=== PATIENT | male | born 1950 | race Caucasian/White ===

== ENCOUNTER 2021-04-20 12:17 | Emergency (ER) | payer MEDICARE, SELFPAY ==
[2021-04-20] VITALS (7 sets, daily range): BP systolic 116–135; BP diastolic 83–95; PULSE 83–108; RESP 14–20; TEMP 36.6; O2SAT 94–97
--- NOTE | ~2021-04-20 | XR_ITS ---
EXAMINATION: XR chest 2V DATE: 04/20/2021 12:38 INDICATION: COPD presenting with cough and congestion. TECHNIQUE: PA and lateral views of the chest were obtained. COMPARISON: Chest radiograph dated 04/01/2013 FINDINGS: Hyperexpansion of lungs with flattening of the diaphragm and increased retrosternal clear space consi stent with given history of COPD . Chronic large calcified nodule at the posterior right lower lobe a long with calcified right hilar lymph nodes no other airspace opacities, pulmonary edema, pleural eff usion or pneumothorax. Consistent with old granulomatous disease. The cardiomediastinal silhouette is normal. Dual lead pacemaker/AICD seen with leads projecting over the expected locations of the right atrium and right ventricle. There are bridging osteophytes at multiple levels in the spine, consiste nt with diffuse idiopathic skeletal hyperostosis (DISH). IMPRESSION: 1. Hyperexpansion of lungs consistent with given history of COPD. No acute cardiopulmonary disease. Reviewed, dictated and finalized at location A. IMPRESSION: 1. Hyperexpansion of lungs consistent with given history of COPD. No acute card iopulmonary disease.
--- NOTE | 2021-04-20 12:26 | ECG_ITS ---
Measurements Intervals [place] Rate: 96 P: 76 GA: 169 QRS: 50 QRSD: 100 T: 91 QT: 362 QTc: 460 Interpretive Statements SINUS RHYTHM VENTRICULAR PREMATURE COMPLEXES DELAYED PRECORDIAL R/S TRANSITION BORDERLINE T WAVE ABNORMALITY- LAT/HIGH LAT LEADS BASELINE ARTIFACT- I, III, AVL BORDERLINE ECG Electronically Signed On 04-20-2021 12:55:22 CDT by Wero Horton D.O.
[2021-04-20 13:04] LABS: Basophils Absolute Auto 0.1 K/mm3 (0.0-0.1); Basophils Percent Auto 1.1 % (0.2-1.2); Eosinophils Absolute Auto 0.2 K/mm3 (0-0.3); Eosinophils Percent Auto 3.4 % (0-4.4); Hematocrit 49.8 % (42.0-52.0); Hemoglobin 15.6 g/dL (14.0-18.0); Immature Granulocyte Absolute 0.01 K/mm3 (0.00-0.031); Immature Granulocyte Percent A 0.2 % (0-0.5); Lymphocytes Absolute Auto 1.48 K/mm3 (0.9-3.2); Lymphocytes Percent Auto 22.8 % (18.3-44.2); Mean Corpuscular HGB Conc 31.3 g/dl (32-36); Mean Corpuscular Hemoglobin 29.4 pg (26-34); Mean Platelet Volume 10.3 fl (7.4-10.4); Monocytes Absolute Auto 0.5 K/mm3 (0.1-0.6); Monocytes Percent Auto 8.2 % (2.6-8.5); Neutrophils Absolute Auto 4.2 K/mm3 (1.3-6.7); Neutrophils Percent Auto 64.3 % (45.5-73.1); Platelet Count Result 224 k/mm3 (150-375); Red Cell Distribution Width 13.2 % (11.5-14.5); White Blood Count 6.5 K/mm3 (4.5-10.0)
--- NOTE | 2021-04-20 15:44 | ED.GENADULT ---
HPI - General Adult General Chief complaint: Upper Respiratory Infection Stated complaint: PROD COUGH/RUNNY NOSE Time Seen by Provider: 04/20/21 15:25 Source: RN notes reviewed History of Present Illness HPI narrative: Patient presents emergency department from home for cough and congestion. Patient states symptoms again proximally 5 days ago. States he had a cough been productive of some yellow sputum as well as rhinorrhea states that he does have a history of COPD but does not have an inhaler at home he denies having any fevers or chills chest pain or shortness of breath states he has had his Covid vaccinations states he normally gets sick around this time of year every year Related Data Home Medications Medication Instructions Recorded Confirmed warfarin 2 mg tablet 2 mg PO DAILY 01/09/21 01/09/21 Allergies Allergy/AdvReac Type Severity Reaction Status Date / Time codeine AdvReac Mild HALLUCINATI Verified 01/09/21 11:21 ONS Review of Systems Review of Systems: Gen.: Denies fevers or chills Eyes: Denies eye pain or visual change ENT: Reports congestion Respiratory: See HPI CV: Denies chest pain or palpitations GI: Denies abdominal pain nausea, emesis or diarrhea Musculoskeletal: Denies back pain or muscle pain Neuro: Denies numbness, tingling, weakness or focal weakness Skin: Denies rash Except as documented, all other systems reviewed and negative [facility] Past Medical History Medical History (Updated 04/20/21 @ 17:56 by Fabio Macias DO) COPD (chronic obstructive pulmonary disease) Family History Family History Father Heart disease Other Cerebrovascular accident Social History Social History Smoking status: Never smoker Alcohol intake: current Substance use: never Exam Narrative: APPEARANCE: No acute distress, nontoxic, resting in bed EYES: EOMI HEENT: Normocephalic, atraumatic, OMM RESPIRATORY: No respiratory distress wheezing throughout the bilateral lung bower with decreased breath sounds in the bases CARDIOVASCULAR: Regular rate and rhythm without murmurs rubs or gallops. ABDOMINAL: Soft, nontender, nondistended, no rebound or guarding MUSCULOSKELETAl: Moves all extremities. No clubbing, cyanosis or edema. NEURO: Awake and alert. Following commands, speech normal, no focal deficits SKIN:: Warm, dry. No rashes lesions or abrasions PSYCHIATRIC: Normal affect/mood, Course Course Emergency Course: Patient states he felt much better repeat lung exam is clear to auscultation bilaterally Discussed with patient results of workup and diagnosis. Discussed need for follow-up with primary care, proper use of medication, and reasons to return to the emergency department. Patient understands and agrees to current treatment plan patient has been vaccinated against Covid suspect this is COPD but will do Covid swab I did discuss with the patient his INR level he states because he was sick he did not take it for the past couple days he states he did restart taking it today he states he supposed be getting it rechecked tomorrow we will follow his PCP Vital Signs Vital signs: Vital Signs Temperature 97.9 F 04/20/21 12:23 Pulse Rate 108 H 04/20/21 12:23 Respiratory Rate 20 04/20/21 12:23 Blood Pressure 116/86 04/20/21 12:23 Pulse Oximetry 97 04/20/21 12:23 Temperature 97.9 F 04/20/21 12:23 Pulse Rate 97 04/20/21 16:48 Respiratory Rate 14 04/20/21 16:48 Blood Pressure 135/95 H 04/20/21 15:35 Pulse Oximetry 95 04/20/21 15:35 Medical Decision Making Vital Signs Vital Signs: Vital Signs Temperature 97.9 F 04/20/21 12:23 Pulse Rate 108 H 04/20/21 12:23 Respiratory Rate 20 04/20/21 12:23 Blood Pressure 116/86 04/20/21 12:23 Pulse Oximetry 97 04/20/21 12:23 Temperature 97.9 F 04/20/21 12:23 Pulse Rate 97 04/20/21 16:48
[2021-04-20] MEDS: IPRATROPIUM BR 0.02% INH SOLN 0.5 MG/2.5 ML VIAL INHALATION ×2 (15:57→16:42)
[2021-04-20] MEDS: ALBUTEROL SULFATE NEB 2.5 MG/0.5 ML INH 5 MG INHALATION ×2 (15:57→16:42)
[2021-04-20] MEDS: predniSONE 20 MG TABLET 60 MG PO (17:12)
[2021-04-20 17:44] LABS: Anion Gap 11 mmol/L (8-16); Blood Urea Nitrogen 25 mg/dL (9-20); Calcium 8.9 mg/dL (8.4-10.2); Carbon Dioxide 29 mmol/L (22-30); Chloride 101 mmol/L (98-107); Estimated CRCL calculation 45 ml/min; Estimated Glomerular Filt Rate 54; Glucose 98 mg/dL (65-110); Potassium 3.9 mmol/L (3.4-5.0); Sodium 141 mmol/L (137-145)
[2021-04-20 17:55] LABS: INR 1.2; Prothrombin Time 15.2 Seconds (11.1-14.7)
[2021-04-20 17:56] LABS: Partial Thromboplastin Time 28.8 SECONDS (22.3-36.8)
== END 2021-04-20 18:16 | disposition home or self-care (01) ==
PROVIDERS: Emergency Medicine; Emergency Provider Emergency Medicine; PCP Family Medicine
DX: J44.1 Chronic obstructive pulmonary disease with (acute) exacerbation (principal); Z79.01 Long term (current) use of anticoagulants
CPT/HCPCS: 36415; 71046; 80048; 85025; 85055; 85610; 85730; 93005; 94640; 99284; J7512

== ENCOUNTER 2022-02-12 11:59 | Inpatient (IN) | payer MEDICARE, SELFPAY ==
[2022-02-12] VITALS (21 sets, daily range): BP systolic 94–144; BP diastolic 52–120; PULSE 88–175; RESP 14–28; TEMP 36.1–36.7; O2SAT 94–100; BMI 23.5
--- NOTE | 2022-02-12 | ECHO_ITS ---
Patient Info Name: Karin Jackson Age: 71 years : 1950 Gender: Male Ht: 68 in Wt: 154 lbs BSA: 1.84 m2 HR: 114 bpm BP: 115 / 79 mmHg Heart Rhythm: Atrial Fibrillation, Tachycardia, Paced Technical Quality: Good Exam Date: 02/12/2022 4:50 PM Exam Location: [facility]monary Exam Room: 201 Patient Status: Inpatient Admit Date: 02/12/2022 Staff Ordering Physician: [facility] Aide: Nicci Ha RDCS Attending Provider: John Paul Bailey MD Referring Physician: Gurwinder YOST; Exam Type: CA echo doppler color flow Study Info Indications R06.02 - Shortness of breath Complete two-dimensional, color flow and Doppler transthoracic echocardiogram is performed. Summary 1. Complete two-dimensional, color flow and Doppler transthoracic echocardiogram is performed. 2. Left ventricular chamber dimension is mildly enlarged. 3. Left ventricular systolic function is severely reduced, estimated at 15%. Prominent left ventricular trabeculations. 4. Left ventricular septal wall motion is abnormal with septal motion related to bundle branch block. 5. There is mild to moderate mitral valve regurgitation. 6. There is mild to moderate tricuspid valve regurgitation. Left Ventricle Left ventricular chamber dimension is mildly enlarged. Left ventricular systolic function is severely reduced, estimated at 15%. Prominent left ventricular trabeculations. There is no increased left ventricular wall thickness. Left ventricular septal wall motion is abnormal with septal motion related to bundle branch block. The left ventricular diastolic function is indeterminate. Right Ventricle Right ventricular chamber dimension is normal. Right ventricular systolic function is moderately reduced. Linear artifact in right ventricle suggestive of catheter(s), pacemaker lead(s), or ICD lead(s). Left Atria Left atrial chamber dimension is mildly enlarged. Right Atria Right atrial chamber dimension is mildly enlarged. Linear artifact in the right atrium suggestive of catheter(s), pacemaker lead(s), or ICD lead(s). Aortic Valve The aortic valve is not well visualized. There is no aortic valve stenosis. There is no aortic valve regurgitation. Pulmonic Valve The pulmonic valve is not well visualized. Mitral Valve The mitral valve has thickened leaflets. There is mild to moderate mitral valve regurgitation. The mitral valve annulus is mildly calcified. Tricuspid Valve The tricuspid valve leaflets are normal. There is mild to moderate tricuspid valve regurgitation. Moderate pulmonary hypertension, estimated pulmonary arterial systolic pressure is 46 mmHg. Pericardium/Pleural The pericardium appears normal. There is no pericardial effusion. Inferior Vena Cava Normal inferior vena cava with >50% collapse upon inspiration consistent with normal right atrial pressure, 5 mmHg. Aorta The aortic root size at the sinus of Valsalva is normal. There is mild aortic atherosclerosis. Left Ventricular Outflow Tract Name Value Normal LVOT 2D LVOT Diameter 2.0 cm LVOT Doppler LVOT Peak Gradient
--- NOTE | ~2022-02-12 | XR_ITS ---
EXAMINATION: XR chest 1V portable DATE: 02/12/2022 12:30 INDICATION: Chest pain. Shortness of breath and cough. TECHNIQUE: A single frontal view of the chest was obtained on 2 radiographs. COMPARISON: Chest 2 views 04/20/2021 FINDINGS: A calcified right lung nodule and calcified right hilar lymph nodes are consistent with old granulomatous disease. No pleural effusion or pneumothorax. The heart size is normal. There is a lef t chest wall pacer with leads in the right atrium and right ventricle. IMPRESSION: 1. No acute cardiopulmonary disease. Reviewed, dictated and finalized at location A.
--- NOTE | ~2022-02-12 | US_ITS ---
EXAMINATION: US right upper quadrant DATE: 02/14/2022 10:48 INDICATION: Hyperbilirubinemia TECHNIQUE: Multiple grayscale and Doppler ultrasound images of the abdomen were obtained. COMPARISON: 02/13/2022 FINDINGS: The pancreatic head and body are normal in appearance. The pancreatic tail is not visualized. Liver has normal echogenicity and contour, with a smooth surface. No liver lesion identified. No intrahepat ic biliary duct dilation suspected. Portal venous flow was seen in the hepatopetal, normal direction and has normal Doppler waveform. The gallbladder is normal in appearance. There is no cholelithiasis . The common bile duct measures 3 mm, which is normal. Sonographic [place] sign was reported as negati ve by the computer lab para professional.Visualized proximal inferior vena cava is normal. IMPRESSION: 1. Normal right upper quadrant ultrasound. Reviewed, dictated and finalized at location B.
--- NOTE | ~2022-02-12 | US_ITS ---
EXAMINATION: US renal BI DATE: 02/14/2022 10:48 INDICATION: Acute renal insufficiency TECHNIQUE: Multiple ultrasound grayscale images of the kidneys were obtained. COMPARISON: None. FINDINGS: The right kidney measures 9.9 x 4.5 x 5.0 cm. The left kidney measures 10.3 x 4.8 x 5.2 cm. The kidne ys demonstrate normal echogenicity. There is no hydronephrosis in either kidney. No stones identifie d. The bladder is normal. IMPRESSION: 1. Normal kidneys without hydronephrosis. Reviewed, dictated and finalized at location B.
--- NOTE | ~2022-02-12 | XR_ITS ---
EXAMINATION: XR chest 1V portable DATE: 02/16/2022 12:45 INDICATION: Shortness of breath. TECHNIQUE: A single frontal view of the chest was obtained on 2 radiographs. COMPARISON: Chest single view 02/12/2022, CT abdomen and pelvis 02/13/2022 FINDINGS: There is interstitial pattern, consistent with mild pulmonary edema. There is a small right pleural effusion. No pneumothorax. The heart size is normal. There is a left chest wall pacer with l calista in the right atrium and right ventricle. IMPRESSION: 1. Mild pulmonary edema. 2. Small right pleural effusion. Reviewed, dictated and finalized at location A.
--- NOTE | ~2022-02-12 | US_ITS ---
EXAMINATION: US carotid duplex BI DATE: 02/13/2022 11:49 INDICATION: Dizziness. TECHNIQUE: Grayscale, color Doppler, and pulsed Doppler images of the cervical carotid arteries were obtained. The degree of vessel stenosis is placed in one of the following categories: normal, <50%, 5 0-69%, >=70% but less than near-occlusion, near-occlusion, or total occlusion. Note that percent sten osis relative to normal distal artery lumen diameter is indirectly measured from velocity measurement s as described by Chao, et al. Radiology 2003; [id number]:[id number]. COMPARISON: None. FINDINGS: RIGHT: The right common carotid artery (CCA) peak systolic velocity (PSV) is 42 cm/s. The right internal car otid artery (ICA) PSV is 36 cm/s. The right ICA end-diastolic velocity (EDV) is 14 cm/s. The right IC A/CCA PSV ratio is 0.9. Grayscale and color Doppler images yield an estimate of <50% diameter reducti on from plaque in the ICA. There is antegrade flow in the right vertebral artery. LEFT: The left CCA PSV is 45 cm/s. The left ICA PSV is 36 cm/s. The left ICA EDV is 10 cm/s. The left ICA/C CA PSV ratio is 0.8. Grayscale and color Doppler images yield an estimate of <50% diameter reduction from plaque in the ICA. There is antegrade flow in the left vertebral artery. IMPRESSION: 1. <50% stenosis in the right internal carotid artery. 2. <50% stenosis in the left internal carotid artery. Reviewed, dictated and finalized at location A.
--- NOTE | ~2022-02-12 | CT_ITS ---
EXAMINATION: CT abdomen pelvis wo con DATE: 02/13/2022 09:30 INDICATION: Abnormal liver function tests. Nausea and vomiting. TECHNIQUE: Computed tomography (CT) of the abdomen and pelvis was performed without intravenous contr ast. Automated exposure control and iterative reconstruction technique were employed. The dose-length product was 261.35 mGy-cm. COMPARISON: None. FINDINGS: The visualized portions of the lung bases demonstrate emphysema. There is smooth septal thi ckening, consistent with mild pulmonary edema. There are small pleural effusions. There is left ventr icular enlargement of the heart. There are pacer wires are in right ventricle. No pericardial effusio n. There is a small sliding hiatal hernia. The liver is normal. Calcifications in the spleen are cons istent with old granulomatous disease. The gallbladder, pancreas, adrenal glands, and kidneys are nor mal. There is no urolithiasis. The prostate is mildly enlarged. There is a bladder diverticulum on th e right. There is diverticulosis of the colon without evidence of diverticulitis. There are no dilate d loops of bowel. The appendix is normal. There are no pathologically enlarged lymph nodes. There is no free intraperitoneal fluid. There is mild thoracolumbar spondylosis. IMPRESSION: 1. Mild pulmonary edema with small pleural effusions. 2. Small sliding hiatal hernia. Reviewed, dictated and finalized at location A.
--- NOTE | 2022-02-12 12:04 | ECG_ITS ---
Measurements Intervals [place] Rate: 157 P: [place]: 0 QRS: 102 QRSD: 101 T: 30 QT: 295 QTc: 477 Interpretive Statements ATRIAL FIBRILLATION WITH RAPID VENTRICULAR RESPONSE VENTRICULAR PREMATURE COMPLEX RIGHT AXIS DEVIATION DELAYED PRECORDIAL R/S TRANSITION NONSPECIFIC ST & T-WAVE ABNORMALITY- INF/LAT LEADS BASELINE ARTIFACT- I, II, AVR, AVL, AVF ABNORMAL ECG Electronically Signed On 02-12-2022 12:47:53 CDT by Wero Horton D.O.
[2022-02-12 12:23] LABS: Basophils Absolute Auto 0.1 K/mm3 (0.0-0.1); Basophils Percent Auto 0.9 % (0.2-1.2); Eosinophils Percent Auto 0.5 % (0-4.4); Hematocrit 44.2 % (42.0-52.0); Immature Granulocyte Absolute 0.02 K/mm3 (0.00-0.031); Immature Granulocyte Percent A 0.2 % (0-0.5); Lymphocytes Absolute Auto 1.73 K/mm3 (0.9-3.2); Mean Corpuscular HGB Conc 31.7 g/dl (32-36); Mean Corpuscular Hemoglobin 28.1 pg (26-34); Mean Corpuscular Volume 88.6 fl (80-100); Mean Platelet Volume 9.5 fl (7.4-10.4); Monocytes Absolute Auto 0.6 K/mm3 (0.1-0.6); Monocytes Percent Auto 7.2 % (2.6-8.5); Neutrophils Absolute Auto 6.2 K/mm3 (1.3-6.7); Neutrophils Percent Auto 71.2 % (45.5-73.1); Platelet Count Result 319 k/mm3 (150-375); Red Blood Count 4.99 M/mm3 (4.6-6.20); Red Cell Distribution Width 14.8 % (11.5-14.5); White Blood Count 8.6 K/mm3 (4.5-10.0)
[2022-02-12] MEDS: dilTIAZem HCl INJ 25 MG/5 ML VIAL 5 MG IV PUSH (12:24)
[2022-02-12] MEDS: dilTIAZem 100 MG/100 ML 100 MG/100 ML BAG IV CONT (12:25)
[2022-02-12 12:32] LABS: INR 2.3; Partial Thromboplastin Time 37.3 SECONDS (22.3-36.8); Prothrombin Time 24.9 Seconds (11.1-14.7)
[2022-02-12 12:34] LABS: Albumin Level 4.8 g/dL (3.5-5.1); Alkaline Phosphatase 49 U/L (38-126); Anion Gap 13 mmol/L (8-16); Aspartate Amino Transferase 162 U/L (17-59); Bilirubin,Total 4.4 mg/dL (0.2-1.3); Blood Urea Nitrogen 39 mg/dL (9-20); Calcium 9.5 mg/dL (8.4-10.2); Carbon Dioxide 26 mmol/L (22-30); Chloride 96 mmol/L (98-107); Estimated CRCL calculation 26 ml/min; Estimated Glomerular Filt Rate 29; Glucose 122 mg/dL (65-110); Potassium 4.7 mmol/L (3.4-5.0); Sodium 135 mmol/L (137-145)
--- NOTE | 2022-02-12 12:34 | ED.SOB ---
HPI - SOB/Dyspnea General Chief Complaint: Shortness of Breath/Dyspnea Stated Complaint: SOB Time Seen by Provider: 02/12/22 12:06 Source: RN notes reviewed History of Present Illness HPI Narrative: Patient presents emergency department from home for shortness of breath. Patient states that Hartness of breath has been ongoing for the past 2 to 3 days states is worse with exertion he also notes some swelling in his legs. Patient states he does have a history of heart failure and is on Lasix that she has been taking she does have a history of irregular heart rate and is currently on Coumadin he denies any fevers or chills he denies chest pain abdominal pain nausea vomiting or any other symptoms states he has been taking all of his medications as prescribed Related Data Home Medications Medication Instructions Recorded Confirmed warfarin 2 mg tablet 2 mg PO DAILY 01/09/21 02/12/22 furosemide 40 mg tablet 40 mg PO DAILY 02/12/22 02/12/22 metoprolol tartrate 25 mg tablet 12.5 mg PO BID 02/12/22 02/12/22 pantoprazole 40 mg tablet,delayed 40 mg PO QAM 02/12/22 02/12/22 release Allergies Allergy/AdvReac Type Severity Reaction Status Date / Time codeine AdvReac Mild HALLUCINATI Verified 10/19/21 14:11 ONS Review of Systems Review of Systems: Gen.: Denies fevers or chills ENT: Denies congestion Respiratory: Reports shortness of breath CV: Denies chest pain or palpitations GI: Denies abdominal pain nausea, emesis or diarrhea Musculoskeletal: Denies back pain or muscle pain Neuro: Denies numbness, tingling, weakness or focal weakness Skin: Denies rash Except as documented, all other systems reviewed and negative [facility] Past Medical History Medical History Afib CHF (congestive heart failure) COPD (chronic obstructive pulmonary disease) HLD (hyperlipidemia) HTN (hypertension) Pacemaker Family History Family History Father Heart disease Other Cerebrovascular accident Mother Kidney failure Heart disease Acute myocardial infarction Social History Social History Social History: Patient lives on his own. He denies having any children or pets. Jorge his brother is his surrogate. and he wishes to be a full code. Smoking packs per day: 0.5 Smoking cigarettes per day: 10.0 Years smoked: 18 Smoking pack-years: 9.00 Smoking status: Former smoker Alcohol intake: current Drinks per week: 2 Substance use: never Substance use type: does not use Living arrangements: alone Gender identity (if verbalized by the patient): Male Sexual Orientation (if Verbalized by the Patient): Straight or Heterosexual Spiritual care concerns: No Agree to blood products: Yes Exam Narrative: APPEARANCE: No acute distress, nontoxic, resting in bed EYES: EOMI HEENT: Normocephalic, atraumatic, OMM RESPIRATORY: No respiratory distress Clear to auscultation bilaterally with no rhonchi wheezing or rales. CARDIOVASCULAR: Irregular and tachycardic without murmurs rubs or gallops. ABDOMINAL: Soft, nontender, nondistended, no rebound or guarding MUSCULOSKELETAl: Moves all extremities. No clubbing, cyanosis o 2+ edema to bilateral lower extremities NEURO: Awake and alert. Following commands, speech normal, no focal deficits SKIN:: Warm, dry. No rashes lesions or abrasions PSYCHIATRIC: Normal affect/mood, Course Course Emergency Course: Called and discussed with [employer] Pat for Dr. Torres presentation work-up agrees with consult agrees with plan for Cardizem and will follow as inpatient Discussed with RAMYA Lr for Dr. Bailey agrees with admission Discussed with patient and family results of workup and diagnosis. Discussed need for admission. Patient and family understand and agree to current treatment plan Vital Signs Vital signs: Vital Signs T
[2022-02-12 12:42] LABS: Alanine Aminotransferase 136 U/L (6-50)
[2022-02-12 12:44] LABS: NT Pro B Type Natriuretic Pept 25000 pg/mL (5-100)
[2022-02-12] MEDS: SODIUM CHLORIDE 0.9% IV 1,000 ML 999 ML IV CONT (12:46)
[2022-02-12 12:50] LABS: Troponin I 0.039 ng/mL (0.000-0.034)
[2022-02-12 12:59] LABS: Magnesium 1.8 mg/dL (1.6-2.3)
[2022-02-12 13:08] LABS: SARS-CoV-2 RNA PCR Negative
[2022-02-12 13:32] LABS: Appearance Urine Clear (Clear); Bilirubin Urine 1+ (Negative); Color Urine Yellow (Yellow); Glucose Urine UA Negative (Negative); Ketones Urine Negative (Negative); Leukocyte Esterase Ur Negative LEU/UL (Negative); Nitrate Urine Negative (Negative); Protein Urine Negative (Negative); Specific Grav Ur >= 1.030 (1.001-1.035); Urobilinogen Urine 0.2 mg/dL (<2.0)
[2022-02-12 13:38] LABS: Hyaline Casts Urine 30-49 /lpf; Mucus Urine Rare /lpf; RBC Urine 0-2 /hpf (0-2); Squamous Epithelial Cell Urine Rare /hpf (Few); WBC Urine 0-3 /hpf
[2022-02-12 13:49] LABS: Add Urine Microscopic? YES; Blood Urine Trace-Intact (Negative)
--- NOTE | 2022-02-12 13:49 | ECG_ITS ---
Measurements Intervals [place] Rate: 99 P: [place]: 0 QRS: -73 QRSD: 156 T: 113 QT: 396 QTc: 508 Interpretive Statements ELECTRONIC VENTRICULAR PACEMAKER WITH INHIBITION UNDERLYING PROBABLY ATRIAL FIBRILLATION BASELINE ARTIFACT- I, II, AVR, AVL, AVF NO FURTHER INTERPRETATION IS POSSIBLE ABNORMAL ECG Electronically Signed On 02-12-2022 14:32:04 CDT by Wero Horton D.O.
--- NOTE | 2022-02-12 15:30 | ADMGEN ---
This patient, Karin Jackson, was admitted to IMU Room 201-01. Patient/family oriented to hospital policies and general routines including ID bracelet, bed and alarms, visiting hours, pain management, procedures, bathroom and other care routines, personal items, smoking policy, room service/diet, and visiting hours. Information on how to activate the Rapid Response Team has been discussed. Patient/Family are encouraged to report perceived risks to care and to ask questions if they do not understand what they are told or what they should do.
--- NOTE | 2022-02-12 16:04 | PM.IMHP ---
H&P: HPI History of Present Illness Date/Time: 02/12/22 16:04 Chief Complaint: Shortness of breath, weakness Narrative: Patient is a 71-year-old male with a past medical history of COPD, hyperlipidemia, CHF, AFib, hypertension, who presents to the ED with complaints of shortness of breath for the last 2-3 days. Patient stated that he just has not been feeling good. His appetite over the last couple days have decreased. And today the patient stated that he had 3 episodes of nausea vomiting. He does state that he has little bit of chest pain accompanied with palpitations. He also complains of a cough that is yellow and production. He also stated lately he has been getting very dizzy when he stands up however he has been very weak and tired as well. He denies any constipation or diarrhea. He also states that he feels like he fully empties when he urinates. He also talked to me about his medications. He does take furosemide which he is supposed to take 40 mg p.o. every other day however he has been taking it daily until recently they gave him a prescription for 40 mg as needed. He did state that he was urinating well with the 1st set of Lasix however the new prescription he has noticed a decrease in urination and he also states that he feels worse. He denies taking both medications at 1 time however he presents like he might of been. He did tell me that the last time he had his her looked at his EF was 25%. AST and ALT are both elevated and [place] 4[place] [address]. Patient also has a BUN and creatinine of 39 and 2.20. Creatinine does appear to be around 1-1.5. However do not have any labs to give a good baseline. Patient also has a heart rate within the 100s to 120s. He does get really high however his pacemaker does not seem to have a reason of when it fires and when it does not fire. However he does get more short of breath with a paced rhythm. Trop is very slightly elevated at 0.039. Patient is being admitted to the hospitalist service in observation Review of Systems Review of Systems: All systems reviewed & are unremarkable except as noted in HPI and below [facility] Past Medical History Medical History Afib CHF (congestive heart failure) COPD (chronic obstructive pulmonary disease) HLD (hyperlipidemia) HTN (hypertension) Pacemaker Family History Family History Father Heart disease Other Cerebrovascular accident Mother Kidney failure Heart disease Acute myocardial infarction Social History Social History Social History: Patient lives on his own. He denies having any children or pets. Jorge his brother is his surrogate. and he wishes to be a full code. Smoking packs per day: 0.5 Smoking cigarettes per day: 10.0 Years smoked: 18 Smoking pack-years: 9.00 Smoking status: Former smoker Alcohol intake: current Drinks per week: 2 Substance use: never Substance use type: does not use Living arrangements: alone Gender identity (if verbalized by the patient): Male Sexual Orientation (if Verbalized by the Patient): Straight or Heterosexual Spiritual care concerns: No Agree to blood products: Yes Meds Home Medications and Allergies Home Medications Medication Instructions Recorded Confirmed Type warfarin 2 mg tablet 2 mg PO DAILY 01/09/21 02/12/22 History albuterol sulfate 90 mcg/actuation 2 puff inhalation QID PRN 04/20/21 02/12/22 Rx aerosol inhaler shortness of breath or wheezing #6.7 grams furosemide 40 mg tablet 40 mg PO DAILY 02/12/22 02/12/22 History metoprolol tartrate 25 mg tablet 12.5 mg PO BID 02/12/22 02/12/22 History pantoprazole 40 mg tablet,delayed 40 mg PO QAM 02/12/22 02/12/22 History release Allergies Allergy/AdvReac Type Severity Reaction Status Date / Time codeine AdvReac
--- NOTE | 2022-02-12 16:52 | PM.CNCAR ---
Assessment and Plan Assessment and plan (1) Acute on chronic heart failure with reduced ejection fraction and diastolic dysfunction: Code(s): I50.43 - Acute on chronic combined systolic (congestive) and diastolic (congestive) heart failure Status: Acute Assessment and Plan: Severe LV systolic dysfunction EF 15%. Chest x-ray without significant pulmonary vascular congestion although patient in acute respiratory distress likely combination of AFib with RVR, severe LV dysfunction hypoperfusion with mild troponin elevation, elevated liver function tests but he does not appear to be overtly volume overloaded at this time. He has an acute kidney injury as he has been taking Lasix more persistently under daily basis worse previously he was taking every other day. Ideally, with feel patient may benefit from inotrope therapy, however, given AFib with RVR dobutamine would further exacerbate his atrial tachyarrhythmia which would be counterproductive. More known suboptimal given renal insufficiency. Focus on heart rate control would prefer to avoid diltiazem given severe LV dysfunction, however, given abnormal liver function tests amiodarone carry significant risk for 2 given concern for underlying COPD. If heart rate is not well controlled and remains symptomatic with addition of beta-олег therapy will discontinue diltiazem in favor of short-term amiodarone use and observe response. Continue warfarin goal INR 2-3. Need to review prior cardiovascular records including office notes, echocardiogram, and electrophysiology evaluations. Patient is not currently on optimal medical therapy for his cardiomyopathy and heart failure. Additional considerations as tolerated would involve initiation of Entresto, Jardiance, and or spironolactone. Need review prior records for further confirmation as he may have either not tolerated, been able to obtained and or prohibited due to a history of renal failure and or hypotension. (2) Atrial fibrillation with RVR: Code(s): I48.91 - Unspecified atrial fibrillation Status: Acute Assessment and Plan: Heart rate control strategy at this time, a benefit him cardioversion if sustained AFib with RVR or poor tolerating medications. As above, amiodarone would be favored for heart rate control and or rhythm management, however, given abnormal liver function tests and presumed underlying lung disease this would be a suboptimal long-term management strategy. I have concern with regards to elevated liver function test with recommendations to continue to monitor closely if amiodarone initiation deemed necessary. (3) Acute kidney injury: Code(s): N17.9 - Acute kidney failure, unspecified Status: Acute Assessment and Plan: Presumably due to increased Lasix use, however, suspect related to severe LV dysfunction with AFib with RVR and relative hypoperfusion. There for heart rate control strategy. Caution with diuretic therapy, however, delicate balance with regards to renal function and volume status. Patient will very likely require re-initiation of diuretic therapy (4) Elevated troponin: Code(s): R77.8 - Other specified abnormalities of plasma proteins Status: Acute Assessment and Plan: Trend troponins. Review prior cardiovascular records which are not available at this time. Patient reports history of CAD and prior stent. Patient is not exhibiting anginal symptoms. Recommendation to follow. Patient is therapeutic on warfarin. (5) COPD (chronic obstructive pulmonary disease): Qualifiers: COPD type: COPD with acute exacerbation Qualified Code(s): J44.1 - Chronic obstructive pulmonary disease with (acute) exacerbation Code(s): J44.9 - Chronic obstructive pulmonary disease, unspecified Status: Acute Assessment and Plan: Patient appears to be having COPD exacerbation as well. Bronchodilator therapy defer to primary service in this r
[2022-02-12] MEDS: METOPROLOL TARTRATE INJ 5 MG/5 ML VIAL IV PUSH (17:27)
[2022-02-12] MEDS: WARFARIN (*PBKC) 2 MG TABLET PO (17:32)
[2022-02-12 18:55] LABS: Troponin I 0.051 ng/mL (0.000-0.034)
[2022-02-12 19:05] LABS: Hepatitis B Surface Antigen Negative (Negative)
[2022-02-12 19:10] LABS: HAV RESULT Negative (Negative); Hepatitis B Core IgM Result Negative (Negative)
[2022-02-12 19:22] LABS: Hepatitis C Virus Antibody Negative (Negative)
[2022-02-12] MEDS: METOPROLOL TARTRATE 25 MG TABLET PO (20:30)
[2022-02-12 21:24] LABS: Troponin I 0.051 ng/mL (0.000-0.034)
[2022-02-13] VITALS (34 sets, daily range): BP systolic 88–111; BP diastolic 50–90; PULSE 77–100; RESP 18–22; TEMP 35.8–36.7; O2SAT 81–98; BMI 23.5
[2022-02-13] MEDS: dilTIAZem 100 MG/100 ML 100 MG/100 ML BAG 10 MG IV CONT ×2 (02:17→12:02)
[2022-02-13 05:22] LABS: Basophils Absolute Auto 0.1 K/mm3 (0.0-0.1); Basophils Percent Auto 0.6 % (0.2-1.2); Eosinophils Percent Auto 0.1 % (0-4.4); Hematocrit 42.6 % (42.0-52.0); Hemoglobin 13.7 g/dL (14.0-18.0); Immature Granulocyte Absolute 0.04 K/mm3 (0.00-0.031); Immature Granulocyte Percent A 0.4 % (0-0.5); Lymphocytes Absolute Auto 1.33 K/mm3 (0.9-3.2); Lymphocytes Percent Auto 12.5 % (18.3-44.2); Mean Corpuscular HGB Conc 32.2 g/dl (32-36); Mean Corpuscular Hemoglobin 28.4 pg (26-34); Mean Corpuscular Volume 88.2 fl (80-100); Mean Platelet Volume 10.2 fl (7.4-10.4); Monocytes Absolute Auto 0.6 K/mm3 (0.1-0.6); Monocytes Percent Auto 5.6 % (2.6-8.5); Neutrophils Absolute Auto 8.6 K/mm3 (1.3-6.7); Neutrophils Percent Auto 80.8 % (45.5-73.1); Platelet Count Result 319 k/mm3 (150-375); Red Blood Count 4.83 M/mm3 (4.6-6.20); Red Cell Distribution Width 14.8 % (11.5-14.5); White Blood Count 10.6 K/mm3 (4.5-10.0)
[2022-02-13 05:31] LABS: INR 2.7; Prothrombin Time 28.2 Seconds (11.1-14.7)
[2022-02-13 05:48] LABS: Alanine Aminotransferase 425 U/L (6-50); Albumin Level 4.3 g/dL (3.5-5.1); Alkaline Phosphatase 45 U/L (38-126); Anion Gap 14 mmol/L (8-16); Aspartate Amino Transferase 524 U/L (17-59); Bilirubin,Total 5.9 mg/dL (0.2-1.3); Blood Urea Nitrogen 50 mg/dL (9-20); Carbon Dioxide 26 mmol/L (22-30); Chloride 96 mmol/L (98-107); Estimated CRCL calculation 24 ml/min; Estimated Glomerular Filt Rate 27; Glucose 114 mg/dL (65-110); Magnesium 1.8 mg/dL (1.6-2.3); Potassium 4.7 mmol/L (3.4-5.0); Sodium 136 mmol/L (137-145)
[2022-02-13] MEDS: METOPROLOL TARTRATE 25 MG TABLET PO (10:24)
[2022-02-13] MEDS: PANTOPRAZOLE 40 MG TABLET PO (10:24)
[2022-02-13] MEDS: DOCUSATE SODIUM 100 MG CAPSULE PO (10:24)
--- NOTE | 2022-02-13 11:44 | PC.NURSE ---
Cardiopulmonary Rehab Services flyer was given to patient.
--- NOTE | 2022-02-13 12:28 | PM.PNCARD ---
Progress Note: A&P Assessment and Plan (1) Acute on chronic heart failure with reduced ejection fraction and diastolic dysfunction: Code(s): I50.43 - Acute on chronic combined systolic (congestive) and diastolic (congestive) heart failure Status: Acute Assessment and Plan: Severe LV systolic dysfunction EF 15%. Chest x-ray without significant pulmonary vascular congestion although patient in acute respiratory distress likely combination of AFib with RVR, severe LV dysfunction hypoperfusion with mild troponin elevation, elevated liver function tests but he does not appear to be overtly volume overloaded at this time. He has an acute kidney injury as he has been taking Lasix more persistently under daily basis worse previously he was taking every other day. Ideally, with feel patient may benefit from inotrope therapy, however, given AFib with RVR dobutamine would further exacerbate his atrial tachyarrhythmia which would be counterproductive. Need to monitor blood pressure closely, renal function and electrolytes particular for arrhythmias on telemetry. Giving continue abnormalities and LFTs and renal insufficiency given severe LV systolic dysfunction will initiate low-dose Milrinone 0.250 microgram/kilogram per minute and observe tolerance. Patient is not currently on optimal medical therapy for his cardiomyopathy and heart failure. Additional considerations as tolerated would involve initiation of Entresto, Jardiance, and/or spironolactone. Need review prior records for further confirmation as he may have either not tolerated, been able to obtained and or prohibited due to a history of renal failure and or hypotension. However, we are unable to initiate these medications this time given acute renal failure, abnormal liver function tests and plan for inotrope therapy. Plan of care extensively discussed with the patient and Hospitalist Service Dr. Patel. Patient has overall poor prognosis. Monitor volume status very closely as I anticipate he will require re-initiation of diuretic therapy. (2) Atrial fibrillation with RVR: Code(s): I48.91 - Unspecified atrial fibrillation Status: Acute Assessment and Plan: Heart rate control strategy at this time, better controlled. While patient may benefit from cardioversion if sustained AFib with RVR or poorly tolerating medications amiodarone otherwise be more effective at controlling his AFib given the circumstances. However, given abnormalities quite hesitant to initiate at this time but if improvement is observed without inotrope therapy remains a consideration. Continue systemic anticoagulation goal INR of 2-3. Need to wean off diltiazem given negative chronotropic effects and increase metoprolol as tolerated for adequate heart rate control. Increase metoprolol tartrate to 50 mg p.o. q.8 hours reduce diltiazem to 5 mg per hour and discontinue if heart rate less than 110 beats per minute. (3) Acute kidney injury: Code(s): N17.9 - Acute kidney failure, unspecified Status: Acute Assessment and Plan: Suspect related to severe LV dysfunction with AFib with RVR and relative hypoperfusion. There for heart rate control strategy. Caution with diuretic therapy, however, delicate balance with regards to renal function and volume status. Patient will very likely require re-initiation of diuretic therapy. See above with regards on inotrope therapy. (4) Elevated troponin: Code(s): R77.8 - Other specified abnormalities of plasma proteins Status: Acute Assessment and Plan: Mild elevation, fairly flat curve not consistent with acute coronary syndrome but type 2 infarction in the setting of severe LV dysfunction, decompensated heart failure, acute renal failure and atrial fibrillation with RVR at presentation. (5) COPD (chronic obstructive pulmonary disease): Qualifiers: COPD type: COPD with acute exacerbation Qualified Code(s): J4
--- NOTE | 2022-02-13 12:49 | PCNSR ---
On 02/13/22, the student, Lida Jacques, provided care and completed [facility] documentation on this patient. I have reviewed the student's documentation and agree with the findings.
[2022-02-13] MEDS: ONDANSETRON INJ 4 MG/2 ML VIAL IV PUSH (13:15)
[2022-02-13] MEDS: MILRINONE LACTATE 20 MG in DEXTROSE 5% 80 ML 5.26 MG IV CONT (14:24)
[2022-02-13] MEDS: METOPROLOL TARTRATE 50 MG TAB PO ×2 (14:25→20:46)
--- NOTE | 2022-02-13 15:18 | PCRCNOTE ---
Window of time for administration has passed. See next scheduled administration.
--- NOTE | 2022-02-13 15:59 | PM.IMPN ---
Progress Note: A&P Assessment and Plan (1) CHF (congestive heart failure): Code(s): I50.9 - Heart failure, unspecified Status: Acute Assessment and Plan: Patient presents with shortness of breath found to acute on chronic systolic and diastolic CHF. BNP is 25K. Echocardiogram here shows EF of 15% with [id number] MR. Diastolic function indeterminate. Chest x-ray was clear but CT of the abdomen and pelvis showed mild pulmonary edema with small pleural effusions. Troponin was elevated to 0.051 but flat. EKG showed AFib with RVR and nonspecific ST T wave changes. He has acute kidney injury probably related to cardiorenal syndrome from the rapid ventricular response. He also has elevated liver enzymes related to hepatic congestion from the uncontrolled AFib. Heart rate is better controlled now. He has been started on Milrinone. If this is indeed the etiology, would expect his liver enzymes to peak start to improve as well as improvement with his renal function. Appreciate Cardiology input. Patient has been started on Milrinone. His been weaned off diltiazem on to metoprolol only for rate control. Continue to monitor closely. Continue daily weights. CHF teaching. Lasix on hold. He is wheezing which could be cardiac asthma but he states he has improved with Xopenex so will continue this for now. (2) Afib: Code(s): I48.91 - Unspecified atrial fibrillation Status: Acute Assessment and Plan: Patient with chronic AFib. He had a pacemaker placed but 8 years ago. Patient presents for shortness of breath and found to have AFib with RVR. Started on diltiazem to control rate. This has been transitioned off is currently on metoprolol orally. Rate is remaining stable. He remains on Milrinone which will try to wean off. Pacemaker interrogation. Continue telemetry monitoring. Continue Coumadin. INR is therapeutic. Daily INR. Appreciate Cardiology input. (3) Acute kidney injury: Code(s): N17.9 - Acute kidney failure, unspecified Status: Acute Assessment and Plan: Creatinine 2.2 on admission. Baseline creatinine is 1-1.3. Creatinine has worsened today. Suspect this is related to the AFib with RVR causing poor perfusion to the kidneys. UA is bland. No contrast exposure. No recent infections. Blood pressures been stable. Heart rate has been better controlled. Continue to monitor renal function. I will check a renal ultrasound. No evidence of obstructive uropathy. (4) Elevated LFTs: Code(s): R79.89 - Other specified abnormal findings of blood chemistry Status: Acute Assessment and Plan: Patient had elevated liver function tests on admission and have worsened today. Total bilirubin is 5.9. AST is 524 and ALT 425. Alk-phos is normal. CT of the abdomen shows normal liver and gallbladder. No concerning findings to explain the elevated liver enzymes. Given the severe cardiomyopathy in the uncontrolled AFib, feel that the elevated liver tests are related to hepatic congestion. Hepatitis panel is negative. COVID is negative. Will fractionate the bilirubin. Will check a right upper quadrant ultrasound. Will follow for now. No evidence of hemolysis. (5) HTN (hypertension): Code(s): I10 - Essential (primary) hypertension Status: Acute Assessment and Plan: Patient's blood pressure was reviewed on 02/13 He was on metoprolol only at home. Blood pressure was soft at times but improved today. (6) Dizziness: Code(s): R42 - Dizziness and giddiness Status: Acute Assessment and Plan: Reports dizziness when he stands probably related to cardiac etiology. Carotid Dopplers showed less slough and 50% stenosis in the bilateral internal carotid arteries. Start PT OT. (7) Elevated troponin: Code(s): R77.8 - Other specified abnormalities of plasma proteins Status: Acute Assessment and Plan: Troponin to
[2022-02-13] MEDS: WARFARIN (*PBKC) 2 MG TABLET PO (17:38)
[2022-02-13 21:27] LABS: Creatinine Urine 199.3 mg/dL
[2022-02-13 21:28] LABS: Sodium Urine Random 13 meq/L
[2022-02-13 21:39] LABS: Eosinophil Urine None Seen % (None Seen)
[2022-02-14] VITALS (32 sets, daily range): BP systolic 87–114; BP diastolic 59–73; PULSE 95–138; RESP 20–22; TEMP 36.3–36.7; O2SAT 85–99
[2022-02-14 05:02] LABS: Basophils Absolute Auto 0.1 K/mm3 (0.0-0.1); Eosinophils Absolute Auto 0.2 K/mm3 (0-0.3); Eosinophils Percent Auto 2.8 % (0-4.4); Hematocrit 32.3 % (42.0-52.0); Hemoglobin 10.6 g/dL (14.0-18.0); Immature Granulocyte Absolute 0.03 K/mm3 (0.00-0.031); Immature Granulocyte Percent A 0.4 % (0-0.5); Lymphocytes Absolute Auto 1.46 K/mm3 (0.9-3.2); Lymphocytes Percent Auto 20.8 % (18.3-44.2); Mean Corpuscular HGB Conc 32.8 g/dl (32-36); Mean Corpuscular Hemoglobin 28.8 pg (26-34); Mean Corpuscular Volume 87.8 fl (80-100); Mean Platelet Volume 10.1 fl (7.4-10.4); Monocytes Absolute Auto 0.4 K/mm3 (0.1-0.6); Neutrophils Absolute Auto 4.9 K/mm3 (1.3-6.7); Platelet Count Result 245 k/mm3 (150-375); Red Blood Count 3.68 M/mm3 (4.6-6.20); Red Cell Distribution Width 14.6 % (11.5-14.5)
[2022-02-14] MEDS: METOPROLOL TARTRATE 50 MG TAB PO ×3 (05:13→20:13)
[2022-02-14 05:14] LABS: Prothrombin Time 30.1 Seconds (11.1-14.7)
[2022-02-14 05:28] LABS: Iron 47 ug/dL (49-181)
[2022-02-14 05:29] LABS: Alanine Aminotransferase 330 U/L (6-50); Albumin Level 3.2 g/dL (3.5-5.1); Alkaline Phosphatase 37 U/L (38-126); Anion Gap 7 mmol/L (8-16); Aspartate Amino Transferase 254 U/L (17-59); Bilirubin Indirect 4.1 mg/dL (0-1.1); Bilirubin,Total 4.6 mg/dL (0.2-1.3); Blood Urea Nitrogen 51 mg/dL (9-20); Calcium 8.3 mg/dL (8.4-10.2); Carbon Dioxide 28 mmol/L (22-30); Chloride 97 mmol/L (98-107); Creatine Kinase 100 U/L (55-170); Estimated CRCL calculation 32 ml/min; Estimated Glomerular Filt Rate 37; Glucose 106 mg/dL (65-110); Potassium 3.3 mmol/L (3.4-5.0); Sodium 132 mmol/L (137-145)
[2022-02-14 05:42] LABS: Percent Iron Saturation 14 % (20-50)
[2022-02-14 06:42] LABS: Folic Acid 7.1 ng/mL (2.76->20)
[2022-02-14] MEDS: MILRINONE LACTATE 20 MG in DEXTROSE 5% 80 ML 5.26 MG IV CONT (08:14)
[2022-02-14] MEDS: PANTOPRAZOLE 40 MG TABLET PO (08:16)
[2022-02-14] MEDS: AMIODARONE HCL 200 MG TABLET 400 MG PO ×2 (11:22→17:39)
--- NOTE | 2022-02-14 12:52 | PM.PNCARD ---
Progress Note: A&P Assessment and Plan (1) Acute on chronic heart failure with reduced ejection fraction and diastolic dysfunction: Code(s): I50.43 - Acute on chronic combined systolic (congestive) and diastolic (congestive) heart failure Status: Acute Assessment and Plan: Renal function and LFTs improving with initiation of Milrinone infusion. Patient states he feels a little better as well. Continue for now. Remains off diuretic therapy. Heart rate and/or rhythm control strategy important given lack of cardiac reserve and severe LV systolic dysfunction. Severe LV systolic dysfunction EF 15%. Chest x-ray without significant pulmonary vascular congestion although patient in acute respiratory distress likely combination of AFib with RVR, severe LV dysfunction hypoperfusion with mild troponin elevation, elevated liver function tests but he does not appear to be overtly volume overloaded at this time. He has an acute kidney injury as he has been taking Lasix more persistently under daily basis worse previously he was taking every other day. Patient is not currently on optimal medical therapy for his cardiomyopathy and heart failure. Additional considerations as tolerated would involve initiation of Entresto, Jardiance, and/or spironolactone. Need review prior records for further confirmation as he may have either not tolerated, been able to obtained and or prohibited due to a history of renal failure and or hypotension. However, we are unable to initiate these medications this time given acute renal failure, abnormal liver function tests and plan for inotrope therapy. Patient has overall poor prognosis. Monitor volume status very closely as I anticipate he will require re-initiation of diuretic therapy. (2) Atrial fibrillation with RVR: Code(s): I48.91 - Unspecified atrial fibrillation Status: Acute Assessment and Plan: Heart rate control strategy at this time. He was better controlled but more tachycardic this morning. Given improvement in LFTs with initiation of Milrinone will initiate oral amiodarone 40 mg twice daily and observe response. Continue beta-олег therapy. Diltiazem discontinued yesterday. Expect patient will not tolerate AFib well severe dysfunction. Continue systemic anticoagulation goal INR of 2-3. (3) Acute kidney injury: Code(s): N17.9 - Acute kidney failure, unspecified Status: Acute Assessment and Plan: Suspect related to severe LV dysfunction with AFib with RVR and relative hypoperfusion. Improving on Milrinone infusion. Continue to monitor. Patient will very likely require re-initiation of diuretic therapy. (4) Elevated troponin: Code(s): R77.8 - Other specified abnormalities of plasma proteins Status: Acute Assessment and Plan: Mild elevation, fairly flat curve not consistent with acute coronary syndrome but type 2 infarction in the setting of severe LV dysfunction, decompensated heart failure, acute renal failure and atrial fibrillation with RVR at presentation. (5) COPD (chronic obstructive pulmonary disease): Qualifiers: COPD type: COPD with acute exacerbation Qualified Code(s): J44.1 - Chronic obstructive pulmonary disease with (acute) exacerbation Code(s): J44.9 - Chronic obstructive pulmonary disease, unspecified Status: Acute Assessment and Plan: Patient appears to be having COPD exacerbation as well. Patient admits to improvement with Bronchodilator therapy defer to primary service in this regard. (6) Transaminitis: Code(s): R74.01 - Elevation of levels of liver transaminase levels Status: Acute Assessment and Plan: As above. Improving on Milrinone. Most likely related to hepatic congestion and poor cardiac output. CT abdomen pelvis unremarkable for direct hepatic and or gallbladder pathology. 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
--- NOTE | 2022-02-14 14:07 | PM.IMPN ---
Progress Note: A&P Assessment and Plan (1) CHF (congestive heart failure): Code(s): I50.9 - Heart failure, unspecified Status: Acute Assessment and Plan: Patient presents with shortness of breath found to acute on chronic systolic and diastolic CHF. BNP is 25K. Chest x-ray was clear but CT of the abdomen and pelvis showed mild pulmonary edema with small pleural effusions. Echo here shows EF of 15% with [id number] MR. Diastolic function indeterminate. Troponin was elevated to 0.051 but flat. EKG showed AFib with RVR and nonspecific ST T wave changes. He has acute kidney injury probably related to cardiorenal syndrome from the rapid ventricular response. He also has elevated liver enzymes related to hepatic congestion from the uncontrolled AFib. He was started on Milrinone 02/13. Liver enzymes improved and Renal function better. Amio started for uncontrolled HR. Appreciate Cardiology input. Lasix on hold. (2) Afib: Code(s): I48.91 - Unspecified atrial fibrillation Status: Acute Assessment and Plan: Patient presents for shortness of breath and found to have AFib with RVR. Patient with chronic AFib. Pacemaker placed but 8 years ago. Started on diltiazem for rate control but transitioned to oral metoprolol. Rate uncontrolled so Amiodarone started today (02/14) He remains on Milrinone He remains on Coumadin. INR 3.0 Continue telemetry monitoring. Continue Coumadin. Daily INR. Appreciate Cardiology input. (3) Acute kidney injury: Code(s): N17.9 - Acute kidney failure, unspecified Status: Acute Assessment and Plan: Creatinine 2.2 on admission. Baseline creatinine is 1-1.3. Suspect this is related to the AFib with RVR causing poor perfusion to the kidneys (Cardiorenal syndrome). UA is bland. No contrast exposure. No recent infections. Blood pressures had been stable. Renal US normal Renal function better at 1.8. Should improve with improved renal perfusion and control of HR Continue to monitor renal function. (4) Elevated LFTs: Code(s): R79.89 - Other specified abnormal findings of blood chemistry Status: Acute Assessment and Plan: Patient had elevated liver function tests on admission. CT of the abdomen shows normal liver and gallbladder. RUQ US read as normal Peak AST 524, ALT 425 and TB 5.9. Almost all indirect bili. Hepatitis panel is negative. COVID is negative. Given the severe cardiomyopathy in the uncontrolled AFib, feel that the elevated liver tests are related to hepatic congestion. Levels trending down now with improved hepatic clearance. Follow (5) HTN (hypertension): Code(s): I10 - Essential (primary) hypertension Status: Acute Assessment and Plan: Patient's blood pressure was reviewed on 02/14 He was on metoprolol 12.5mg BID only at home. Curently on Metoprolol 50mg Q8hr for rate control. Blood pressure remains soft. Follow closely (6) Dizziness: Code(s): R42 - Dizziness and giddiness Status: Acute Assessment and Plan: Reports dizziness when he stands probably related to cardiac etiology. Carotid Dopplers showed less then 50% stenosis in the bilateral internal carotid arteries. Continue PT OT. (7) Elevated troponin: Code(s): R77.8 - Other specified abnormalities of plasma proteins Status: Acute Assessment and Plan: Troponin to 0.051. EKG shows nonspecific ST T wave changes during the time of AFib with RVR. Echo as mentioned above. Ehrenberg realted to CHF. Continue medical management as mentioned above. Plan DVT prophylaxis: Coumadin Code status: Full Subjective Date/time seen: 02/14/22 14:07 Interval history: 71yo male with hx of COPD, CHF, HTN and AFib here for SOB with n/v. Patient feeling better. No chest pain shortness a breath. No nausea or vomiting. He is still on 2 L of oxygen. He does not w
[2022-02-14] MEDS: POTASSIUM CHLORIDE 20 MEQ TABLET PO (14:38)
--- NOTE | 2022-02-14 14:53 | PCPTNOTE ---
Attempted PT evaluation, per RN, wait another day to see patient due to HR being 140 bpm sitting/eating. Will follow.
[2022-02-14] MEDS: FERROUS SULFATE 324 MG TABLET PO (17:09)
[2022-02-14] MEDS: WARFARIN (*PBKC) 2 MG TABLET PO (17:09)
[2022-02-15] VITALS (33 sets, daily range): BP systolic 96–119; BP diastolic 61–104; PULSE 61–139; RESP 18–24; TEMP 36.5–36.8; O2SAT 95–100
[2022-02-15] MEDS: MILRINONE LACTATE 20 MG in DEXTROSE 5% 80 ML 5.26 MG IV CONT ×2 (02:11→22:07)
[2022-02-15] MEDS: LORazepam (*CRX) 0.5 MG TABLET PO ×2 (02:39→22:07)
[2022-02-15 05:36] LABS: Basophils Absolute Auto 0.1 K/mm3 (0.0-0.1); Basophils Percent Auto 0.9 % (0.2-1.2); Eosinophils Absolute Auto 0.2 K/mm3 (0-0.3); Eosinophils Percent Auto 2.4 % (0-4.4); Hematocrit 33.3 % (42.0-52.0); Hemoglobin 10.5 g/dL (14.0-18.0); Immature Granulocyte Absolute 0.03 K/mm3 (0.00-0.031); Immature Granulocyte Percent A 0.4 % (0-0.5); Lymphocytes Percent Auto 15.4 % (18.3-44.2); Mean Corpuscular HGB Conc 31.5 g/dl (32-36); Mean Corpuscular Hemoglobin 28.6 pg (26-34); Mean Corpuscular Volume 90.7 fl (80-100); Mean Platelet Volume 10.2 fl (7.4-10.4); Monocytes Absolute Auto 0.6 K/mm3 (0.1-0.6); Monocytes Percent Auto 7.4 % (2.6-8.5); Neutrophils Absolute Auto 5.7 K/mm3 (1.3-6.7); Neutrophils Percent Auto 73.5 % (45.5-73.1); Nucleated Red Blood Cells Perc 0.5 % (0.0-0.2); Platelet Count Result 221 k/mm3 (150-375); Red Blood Count 3.67 M/mm3 (4.6-6.20); Red Cell Distribution Width 15.1 % (11.5-14.5); White Blood Count 7.8 K/mm3 (4.5-10.0)
[2022-02-15 05:42] LABS: Alanine Aminotransferase 323 U/L (6-50); Albumin Level 3.5 g/dL (3.5-5.1); Alkaline Phosphatase 58 U/L (38-126); Anion Gap 6 mmol/L (8-16); Aspartate Amino Transferase 179 U/L (17-59); Bilirubin,Total 3.2 mg/dL (0.2-1.3); Blood Urea Nitrogen 48 mg/dL (9-20); Calcium 8.5 mg/dL (8.4-10.2); Carbon Dioxide 27 mmol/L (22-30); Chloride 97 mmol/L (98-107); Estimated CRCL calculation 36 ml/min; Estimated Glomerular Filt Rate 43; Glucose 116 mg/dL (65-110); Magnesium 1.9 mg/dL (1.6-2.3); Phosphorus 2.9 mg/dL (2.5-4.5); Potassium 3.6 mmol/L (3.4-5.0); Sodium 130 mmol/L (137-145)
[2022-02-15] MEDS: METOPROLOL TARTRATE 50 MG TAB PO ×2 (06:03→12:53)
[2022-02-15 06:05] LABS: INR 3.5; Prothrombin Time 34.2 Seconds (11.1-14.7)
[2022-02-15] MEDS: PANTOPRAZOLE 40 MG TABLET PO (08:27)
[2022-02-15] MEDS: AMIODARONE HCL 200 MG TABLET 400 MG PO ×3 (08:27→20:28)
--- NOTE | 2022-02-15 10:43 | PCPTNOTE ---
Patient's resting HR is 140 bpm currently. PT evaluation with be completed when patient's HR is better controlled. RN aware. Will follow
--- NOTE | 2022-02-15 10:57 | PM.PNCARD ---
Progress Note: A&P Assessment and Plan (1) Acute on chronic heart failure with reduced ejection fraction and diastolic dysfunction: Code(s): I50.43 - Acute on chronic combined systolic (congestive) and diastolic (congestive) heart failure Status: Acute Assessment and Plan: Severe LV systolic dysfunction EF 15%. Renal function and LFTs initially improved with milrinone infusion but worse today. Patient is also feeling worse today overall. Complaining of worsening shortness of breath. Remains off diuretic therapy because of MIMA. Heart rate and/or rhythm control strategy important given lack of cardiac reserve and severe LV systolic dysfunction. However, difficult to manage now because of hypotension. Patient is not currently on optimal medical therapy for his cardiomyopathy and heart failure. Additional considerations as tolerated would involve initiation of Entresto, Jardiance, and/or spironolactone. However, unable to initiate these at this time because of worsening renal function. Patient has overall poor prognosis, management options are limited at this point. I discussed this with the patient and he verbalizes understanding. (2) Atrial fibrillation with RVR: Code(s): I48.91 - Unspecified atrial fibrillation Status: Acute Assessment and Plan: Heart rate control strategy at this time. He is intermittently excessively tachycardic. Increase amiodarone to t.i.d. 400 mg increase metoprolol. Expect patient will not tolerate AFib well give severe LV dysfunction. Continue systemic anticoagulation goal INR of 2-3. (3) Acute kidney injury: Code(s): N17.9 - Acute kidney failure, unspecified Status: Acute Assessment and Plan: Suspect related to severe LV dysfunction with AFib with RVR and relative hypoperfusion. Improving on Milrinone infusion. Continue to monitor. Patient will very likely require re-initiation of diuretic therapy. (4) Elevated troponin: Code(s): R77.8 - Other specified abnormalities of plasma proteins Status: Acute Assessment and Plan: Mild elevation, fairly flat curve not consistent with acute coronary syndrome but type 2 infarction in the setting of severe LV dysfunction, decompensated heart failure, acute renal failure and atrial fibrillation with RVR at presentation. (5) COPD (chronic obstructive pulmonary disease): Qualifiers: COPD type: COPD with acute exacerbation Qualified Code(s): J44.1 - Chronic obstructive pulmonary disease with (acute) exacerbation Code(s): J44.9 - Chronic obstructive pulmonary disease, unspecified Status: Acute Assessment and Plan: Patient appears to be having COPD exacerbation as well. Patient admits to improvement with Bronchodilator therapy defer to primary service in this regard. (6) Transaminitis: Code(s): R74.01 - Elevation of levels of liver transaminase levels Status: Acute Assessment and Plan: As above. Improving on Milrinone. Most likely related to hepatic congestion and poor cardiac output. CT abdomen pelvis unremarkable for direct hepatic and or gallbladder pathology. 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 Therapeutic today. We need to monitor closely with initiation of amiodarone. Anticipate will need to reduce warfarin dosing. Check INR tomorrow. (8) CAD (coronary artery disease): Qualifiers: Coronary Disease-Associated Artery/Lesion type: [place] artery [place] vs. transplanted heart: [place] heart Associated angina: without angina Qualified Code(s): I25.10 - Atherosclerotic heart disease of [place] coronary artery without angina pectoris Code(s): I25.10 - Atherosclerotic heart disease of [place] coronary artery without angina pectoris Status: Acute Assessment and
--- NOTE | 2022-02-15 13:31 | PM.PNCARD ---
Progress Note: A&P Assessment and Plan (1) Acute on chronic heart failure with reduced ejection fraction and diastolic dysfunction: Code(s): I50.43 - Acute on chronic combined systolic (congestive) and diastolic (congestive) heart failure Status: Acute Assessment and Plan: Renal function and LFTs continue to improve with Milrinone infusion. Patient states he feels a little better as well. Continue for now. Remains off diuretic therapy. Heart rate and/or rhythm control strategy important given lack of cardiac reserve and severe LV systolic dysfunction. Severe LV systolic dysfunction EF 15%. Chest x-ray without significant pulmonary vascular congestion although patient in acute respiratory distress likely combination of AFib with RVR, severe LV dysfunction hypoperfusion with mild troponin elevation, elevated liver function tests but he does not appear to be overtly volume overloaded at this time. He has an acute kidney injury as he has been taking Lasix more persistently under daily basis worse previously he was taking every other day. Patient is not currently on optimal medical therapy for his cardiomyopathy and heart failure. Additional considerations as tolerated would involve initiation of Entresto, Jardiance, and/or spironolactone. Need review prior records for further confirmation as he may have either not tolerated, been able to obtained and or prohibited due to a history of renal failure and or hypotension. However, we are unable to initiate these medications this time given acute renal failure, abnormal liver function tests and plan for inotrope therapy. Patient has overall poor prognosis. Monitor volume status very closely as I anticipate he will require re-initiation of diuretic therapy. (2) Atrial fibrillation with RVR: Code(s): I48.91 - Unspecified atrial fibrillation Status: Acute Assessment and Plan: Heart rate control strategy at this time. He is intermittently excessively tachycardic. Increase amiodarone to t.i.d. 400 mg increase metoprolol. Expect patient will not tolerate AFib well severe dysfunction. Continue systemic anticoagulation goal INR of 2-3. (3) Acute kidney injury: Code(s): N17.9 - Acute kidney failure, unspecified Status: Acute Assessment and Plan: Suspect related to severe LV dysfunction with AFib with RVR and relative hypoperfusion. Improving on Milrinone infusion. Continue to monitor. Patient will very likely require re-initiation of diuretic therapy. (4) Elevated troponin: Code(s): R77.8 - Other specified abnormalities of plasma proteins Status: Acute Assessment and Plan: Mild elevation, fairly flat curve not consistent with acute coronary syndrome but type 2 infarction in the setting of severe LV dysfunction, decompensated heart failure, acute renal failure and atrial fibrillation with RVR at presentation. (5) COPD (chronic obstructive pulmonary disease): Qualifiers: COPD type: COPD with acute exacerbation Qualified Code(s): J44.1 - Chronic obstructive pulmonary disease with (acute) exacerbation Code(s): J44.9 - Chronic obstructive pulmonary disease, unspecified Status: Acute Assessment and Plan: Patient appears to be having COPD exacerbation as well. Patient admits to improvement with Bronchodilator therapy defer to primary service in this regard. (6) Transaminitis: Code(s): R74.01 - Elevation of levels of liver transaminase levels Status: Acute Assessment and Plan: As above. Improving on Milrinone. Most likely related to hepatic congestion and poor cardiac output. CT abdomen pelvis unremarkable for direct hepatic and or gallbladder pathology. (7) Current use of senior care anticoagulation: Code(s): Z79.01 - jail (current) use of anticoagulants Status: Acute Assessment and Plan: Warfarin goal INR 2-3. Therapeutic today. We need to m
--- NOTE | 2022-02-15 15:04 | PM.IMPN ---
Progress Note: A&P Assessment and Plan (1) CHF (congestive heart failure): Code(s): I50.9 - Heart failure, unspecified Status: Acute Assessment and Plan: Patient presents with shortness of breath found to acute on chronic systolic and diastolic CHF. BNP is 25K. Chest x-ray was clear but CT of the abdomen and pelvis showed mild pulmonary edema with small pleural effusions. Echo here shows EF of 15% with [id number] MR. Diastolic function indeterminate. Troponin was elevated to 0.051 but flat. EKG showed AFib with RVR and nonspecific ST T wave changes. He has acute kidney injury probably related to cardiorenal syndrome from the rapid ventricular response and poor EF. He also has elevated liver enzymes related to hepatic congestion from the uncontrolled AFib and poor EF. He was started on Milrinone 02/13. Liver enzymes improving and Renal function better. Amio started for uncontrolled HR. Appreciate Cardiology input. Lasix on hold. (2) Afib: Code(s): I48.91 - Unspecified atrial fibrillation Status: Acute Assessment and Plan: Patient presents for shortness of breath and found to have AFib with RVR. Patient with chronic AFib. Pacemaker placed about 8 years ago. Started on diltiazem for rate control but transitioned to oral metoprolol. Rate uncontrolled so Amiodarone started (02/14) He remains on Milrinone INR 3.5. Coumadin held Metoprolol and Amiodarone doses increased Continue telemetry monitoring. Daily INR. Appreciate Cardiology input. (3) Acute kidney injury: Code(s): N17.9 - Acute kidney failure, unspecified Status: Acute Assessment and Plan: Creatinine 2.2 on admission. Baseline creatinine is 1-1.3. UA is bland. No contrast exposure. No recent infections. Blood pressures soft but stable. Renal US normal Suspect MIMA related to the low EF worsened by AFib with RVR causing poor perfusion to the kidneys (Cardiorenal syndrome). Renal function better at 1.6. Continue to monitor renal function. (4) Elevated troponin: Code(s): R77.8 - Other specified abnormalities of plasma proteins Status: Acute Assessment and Plan: Troponin to 0.051. EKG shows nonspecific ST T wave changes during the time of AFib with RVR. Echo as mentioned above. [place] elevated Trop related to acute CHF. Continue medical management as mentioned above. (5) Elevated LFTs: Code(s): R79.89 - Other specified abnormal findings of blood chemistry Status: Acute Assessment and Plan: Patient had elevated liver function tests on admission. CT of the abdomen shows normal liver and gallbladder. RUQ US read as normal Peak AST 524, ALT 425 and TB 5.9. Almost all indirect bili. Hepatitis panel is negative. COVID is negative. Given the severe cardiomyopathy in the uncontrolled AFib, feel that the elevated liver tests are related to hepatic congestion. Levels trending down now with decrease in hepatic congestion Follow (6) HTN (hypertension): Code(s): I10 - Essential (primary) hypertension Status: Acute Assessment and Plan: Patient's blood pressure noted He was on metoprolol 12.5mg BID only at home. Currently on Metoprolol 75mg Q8hr to help control rate. Blood pressure remains soft. Follow closely (7) Dizziness: Code(s): R42 - Dizziness and giddiness Status: Acute Assessment and Plan: Reports dizziness when he stands probably related to cardiac etiology. Carotid Dopplers showed less then 50% stenosis in the bilateral internal carotid arteries. Continue PT OT. Plan DVT prophylaxis: Coumadin Code status: Full Subjective Date/time seen: 02/15/22 15:04 Interval history: 71yo male with hx of COPD, CHF, HTN and AFib here for SOB with n/v. Patient slept well last night. He did received Ativan overnight. No chest pain. He feels short of breath which
[2022-02-15] MEDS: METOPROLOL TARTRATE 25 MG TABLET 75 MG PO (22:07)
[2022-02-16] VITALS (27 sets, daily range): BP systolic 84–135; BP diastolic 37–93; PULSE 91–143; RESP 16–24; TEMP 36.5–37.3; O2SAT 92–100
[2022-02-16 05:03] LABS: Basophils Absolute Auto 0.1 K/mm3 (0.0-0.1); Basophils Percent Auto 0.5 % (0.2-1.2); Eosinophils Absolute Auto 0.1 K/mm3 (0-0.3); Eosinophils Percent Auto 0.4 % (0-4.4); Hematocrit 35.7 % (42.0-52.0); Hemoglobin 11.6 g/dL (14.0-18.0); Immature Granulocyte Absolute 0.06 K/mm3 (0.00-0.031); Immature Granulocyte Percent A 0.5 % (0-0.5); Lymphocytes Absolute Auto 1.12 K/mm3 (0.9-3.2); Lymphocytes Percent Auto 9.8 % (18.3-44.2); Mean Corpuscular HGB Conc 32.5 g/dl (32-36); Mean Corpuscular Hemoglobin 28.8 pg (26-34); Mean Corpuscular Volume 88.6 fl (80-100); Mean Platelet Volume 10.1 fl (7.4-10.4); Monocytes Absolute Auto 0.8 K/mm3 (0.1-0.6); Monocytes Percent Auto 6.7 % (2.6-8.5); Neutrophils Absolute Auto 9.4 K/mm3 (1.3-6.7); Neutrophils Percent Auto 82.1 % (45.5-73.1); Nucleated Red Blood Cells Absolute Auto 0.1 K/mm3 (0.0-0.012); Nucleated Red Blood Cells Perc 0.4 % (0.0-0.2); Platelet Count Result 246 k/mm3 (150-375); Red Blood Count 4.03 M/mm3 (4.6-6.20); Red Cell Distribution Width 15.5 % (11.5-14.5); White Blood Count 11.5 K/mm3 (4.5-10.0)
[2022-02-16 05:20] LABS: INR 4.1; Prothrombin Time 38.7 Seconds (11.1-14.7)
[2022-02-16 05:23] LABS: Alanine Aminotransferase 742 U/L (6-50); Alkaline Phosphatase 78 U/L (38-126); Anion Gap 10 mmol/L (8-16); Aspartate Amino Transferase 681 U/L (17-59); Bilirubin,Total 4.2 mg/dL (0.2-1.3); Blood Urea Nitrogen 55 mg/dL (9-20); Calcium 8.9 mg/dL (8.4-10.2); Carbon Dioxide 27 mmol/L (22-30); Chloride 94 mmol/L (98-107); Estimated CRCL calculation 28 ml/min; Estimated Glomerular Filt Rate 31; Glucose 109 mg/dL (65-110); Phosphorus 4.1 mg/dL (2.5-4.5); Potassium 4.4 mmol/L (3.4-5.0); Sodium 131 mmol/L (137-145)
[2022-02-16] MEDS: METOPROLOL TARTRATE 25 MG TABLET 75 MG PO ×2 (06:12→20:59)
--- NOTE | 2022-02-16 07:42 | PM.IMPN ---
Progress Note: A&P Assessment and Plan (1) CHF (congestive heart failure): Code(s): I50.9 - Heart failure, unspecified Status: Acute Assessment and Plan: Patient presents with shortness of breath found to acute on chronic systolic and diastolic CHF. BNP is 25K. Chest x-ray was clear but CT of the abdomen and pelvis showed mild pulmonary edema with small pleural effusions. Echo here shows EF of 15% with [id number] MR. Diastolic function indeterminate. Troponin was elevated to 0.051 but flat. EKG showed AFib with RVR and nonspecific ST T wave changes. He has acute kidney injury probably related to cardiorenal syndrome from the rapid ventricular response and poor EF. He also has elevated liver enzymes related to hepatic congestion from the uncontrolled AFib and poor EF. He was started on Milrinone 02/13. Liver enzymes improving and Renal function better. Amio started for uncontrolled HR. Appreciate Cardiology input. Lasix on hold. -02/16/22 Cardiology plans to discontinue milrinone at this time and may need to consider holding amiodarone vs reducing dose with rising LFTs. Amiodarone held this morning. BP has been soft. Metoprolol has been held Appreciate recommendations from Cardiology -Discussed goals of care with patient and patient is amenable to recieving information about hospice. Patient discussed with care coordination and order placed for hospice consult with care coordination. (2) Afib: Code(s): I48.91 - Unspecified atrial fibrillation Status: Acute Assessment and Plan: Patient presents for shortness of breath and found to have AFib with RVR. Patient with chronic AFib. Pacemaker placed about 8 years ago. Started on diltiazem for rate control but transitioned to oral metoprolol. Rate uncontrolled so Amiodarone started (02/14) He remains on Milrinone INR 3.5. Coumadin held Metoprolol and Amiodarone doses increased Continue telemetry monitoring. Daily INR. Appreciate Cardiology input. -02/16/22 - INR still supratherapeutic at 4.1 today. Will continue to hold warfarin. Appreciate Cardiology recommendations. (3) Acute kidney injury: Code(s): N17.9 - Acute kidney failure, unspecified Status: Acute Assessment and Plan: Creatinine 2.2 on admission. Baseline creatinine is 1-1.3. UA is bland. No contrast exposure. No recent infections. Blood pressures soft but stable. Renal US normal Suspect MIMA related to the low EF worsened by AFib with RVR causing poor perfusion to the kidneys (Cardiorenal syndrome). Renal function better at 1.6. Continue to monitor renal function. -02/16/22 creatinine up to 2.1 this morning likely secondary to heart failure with soft BP w/ hypoperfusion. (4) Elevated troponin: Code(s): R77.8 - Other specified abnormalities of plasma proteins Status: Acute Assessment and Plan: Troponin to 0.051. EKG shows nonspecific ST T wave changes during the time of AFib with RVR. Echo as mentioned above. [place] elevated Trop related to acute CHF. Continue medical management as mentioned above. (5) Elevated LFTs: Code(s): R79.89 - Other specified abnormal findings of blood chemistry Status: Acute Assessment and Plan: Patient had elevated liver function tests on admission. CT of the abdomen shows normal liver and gallbladder. RUQ US read as normal Peak AST 524, ALT 425 and TB 5.9. Almost all indirect bili. Hepatitis panel is negative. COVID is negative. Given the severe cardiomyopathy in the uncontrolled AFib, feel that the elevated liver tests are related to hepatic congestion. Levels trending down now with decrease in hepatic congestion -02/16/22 heart failure appears to be worsening with worsening passive congestion +/- amiodarone increasing LFTs although amiodarone has been held for the last few days. Will continue to monitor. (6) HTN (hypertension): Code
--- NOTE | 2022-02-16 11:34 | WPDCDIQUERY2 ---
CDI Query Clarification Request 02/12 Cardiology documented: COPD (chronic obstructive pulmonary disease): ?Qualifiers: ?COPD type:?COPD with acute exacerbation? Qualified Code(s):?J44.1 - Chronic obstructive pulmonary disease with (acute) exacerbation ?Code(s): J44.9 - Chronic obstructive pulmonary disease, unspecified ?Status:?Acute ?Assessment and Plan: Patient appears to be having COPD exacerbation as well.? Patient admits to improvement with Bronchodilator therapy defer to primary service in this regard.? Patient with H/O: COPD (chronic obstructive pulmonary disease) Please clarify if COPD exacerbation has been ruled in, ruled out or unable to determine, if ruled in please add to problem list <Farrah Barajas - Last Filed: 02/16/22 11:41> Provider Comments COPD exacerbation <Nay Padilla MD - Last Filed: 03/14/22 12:19>
--- NOTE | 2022-02-16 12:21 | PCPTNOTE ---
Attempted PT evaluation, patient refused stating They just told me I'm going to . Patient reports he will try tomorrow. RN aware. Will follow.
--- NOTE | 2022-02-16 12:38 | PM.PNCARD ---
Progress Note: A&P Assessment and Plan (1) Acute on chronic heart failure with reduced ejection fraction and diastolic dysfunction: Code(s): I50.43 - Acute on chronic combined systolic (congestive) and diastolic (congestive) heart failure Status: Acute Assessment and Plan: Severe LV dysfunction, EF 15%. Renal function and LFT's worsening today and patient feeling worse overall. More shortness of breath today. He remains off diuretic therapy at this point. Worsening pulmonary exam with bilateral rales today. Repeat CXR shows small right pleural effusion and mild pulmonary edema. Unfortunately we are unable to optimize his medical therapy due to his renal function and hypotension. Remains on milrinone 0.25mcg/kg/min, unsure if this is providing much benefit at this point. We discussed that his management options are limited at this facility and that overall his prognosis is poor. Discussed option of considering transfer to [facility] for consideration for advanced therapies vs. palliative care. (2) Atrial fibrillation with RVR: Code(s): I48.91 - Unspecified atrial fibrillation Status: Acute Assessment and Plan: Heart rate control strategy at this time.? He is intermittently excessively tachycardic.? Increase amiodarone to t.i.d. 400 mg increase metoprolol. ? Expect patient will not tolerate AFib well severe LV dysfunction. ? ? Continue systemic anticoagulation goal INR of 2-3. (3) Acute kidney injury: Code(s): N17.9 - Acute kidney failure, unspecified Status: Acute Assessment and Plan: Had been improving but renal function has declined today. Continue to monitor. (4) Elevated troponin: Code(s): R77.8 - Other specified abnormalities of plasma proteins Status: Acute Assessment and Plan: Mild elevation, fairly flat curve not consistent with acute coronary syndrome but type 2 infarction in the setting of severe LV dysfunction, decompensated heart failure, acute renal failure and atrial fibrillation with RVR at presentation. (5) COPD (chronic obstructive pulmonary disease): Qualifiers: COPD type: COPD with acute exacerbation Qualified Code(s): J44.1 - Chronic obstructive pulmonary disease with (acute) exacerbation Code(s): J44.9 - Chronic obstructive pulmonary disease, unspecified Status: Acute (6) Transaminitis: Code(s): R74.01 - Elevation of levels of liver transaminase levels Status: Acute Assessment and Plan: Most likely related to hepatic congestion and poor cardiac output. (7) Current use of group home anticoagulation: Code(s): Z79.01 - assisted (current) use of anticoagulants Status: Acute Assessment and Plan: Warfarin goal INR 2-3.? Increased to 4.1 this morning, not surprising given recent initiation of amiodarone. Worsening LFT's. Hold tonight. Daily INR. (8) CAD (coronary artery disease): Qualifiers: Associated angina: without angina Coronary Disease-Associated Artery/Lesion type: [place] artery [place] vs. transplanted heart: [place] heart Qualified Code(s): I25.10 - Atherosclerotic heart disease of [place] coronary artery without angina pectoris Code(s): I25.10 - Atherosclerotic heart disease of [place] coronary artery without angina pectoris Status: Acute (9) ICD (implantable cardioverter-defibrillator) in place: Code(s): Z95.810 - Presence of automatic (implantable) cardiac defibrillator Status: Acute Assessment and Plan: ICD interrogated results as above.? Curious intermittent ventricular pacing at max tracking rate intermittently in setting of AFib with RVR.? Otherwise, device appears to function normally, however, difficult to explain the device is behavior for intermittent V pacing and elevated rate. Subjective Date/time seen: 02/16/22 12:38 Cardiology follow up for atrial fibrillation, CHF, cardiomyopathy Feeling worse today. Compl
--- NOTE | 2022-02-16 14:31 | PCOTNOTE ---
Per PT, patient just received bad news earlier - declined PT eval. When attempted to see patient, patient speaking with cardiac care unit nurse about hospice care. Will continue OT plan of care as appropriate.
[2022-02-16] MEDS: MILRINONE LACTATE 20 MG in DEXTROSE 5% 80 ML 5.25 MG IV CONT (17:34)
[2022-02-16] MEDS: CALCIUM CARBONATE (TUMS) 500 MG (200 MG ELEMENTAL) PO (18:13)
[2022-02-16] MEDS: LORazepam (*CRX) 0.5 MG TABLET PO (22:02)
[2022-02-17] VITALS (29 sets, daily range): BP systolic 70–104; BP diastolic 36–77; PULSE 77–144; RESP 12–24; TEMP 36.3–37.3; O2SAT 90–100
[2022-02-17 04:17] LABS: Basophils Percent Auto 0.4 % (0.2-1.2); Eosinophils Absolute Auto 0.1 K/mm3 (0-0.3); Eosinophils Percent Auto 1.6 % (0-4.4); Hematocrit 36.6 % (42.0-52.0); Hemoglobin 11.8 g/dL (14.0-18.0); Immature Granulocyte Absolute 0.06 K/mm3 (0.00-0.031); Immature Granulocyte Percent A 0.7 % (0-0.5); Lymphocytes Absolute Auto 0.84 K/mm3 (0.9-3.2); Lymphocytes Percent Auto 9.3 % (18.3-44.2); Mean Corpuscular HGB Conc 32.2 g/dl (32-36); Mean Corpuscular Hemoglobin 28.9 pg (26-34); Mean Corpuscular Volume 89.5 fl (80-100); Mean Platelet Volume 10.3 fl (7.4-10.4); Monocytes Absolute Auto 0.5 K/mm3 (0.1-0.6); Monocytes Percent Auto 5.8 % (2.6-8.5); Neutrophils Absolute Auto 7.4 K/mm3 (1.3-6.7); Neutrophils Percent Auto 82.2 % (45.5-73.1); Nucleated Red Blood Cells Perc 0.4 % (0.0-0.2); Platelet Count Result 225 k/mm3 (150-375); Red Blood Count 4.09 M/mm3 (4.6-6.20); Red Cell Distribution Width 16.3 % (11.5-14.5)
[2022-02-17 04:27] LABS: INR 3.6; Prothrombin Time 34.7 Seconds (11.1-14.7)
[2022-02-17 04:49] LABS: Albumin Level 3.9 g/dL (3.5-5.1); Alkaline Phosphatase 85 U/L (38-126); Anion Gap 8 mmol/L (8-16); Aspartate Amino Transferase 716 U/L (17-59); Bilirubin,Total 4.9 mg/dL (0.2-1.3); Blood Urea Nitrogen 62 mg/dL (9-20); Carbon Dioxide 29 mmol/L (22-30); Chloride 94 mmol/L (98-107); Estimated CRCL calculation 28 ml/min; Estimated Glomerular Filt Rate 31; Glucose 106 mg/dL (65-110); Phosphorus 4.1 mg/dL (2.5-4.5); Potassium 4.6 mmol/L (3.4-5.0); Sodium 131 mmol/L (137-145)
[2022-02-17 04:51] LABS: Alanine Aminotransferase 956 U/L (6-50)
[2022-02-17] MEDS: METOPROLOL TARTRATE 25 MG TABLET 75 MG PO (06:11)
--- NOTE | 2022-02-17 06:26 | ECG_ITS ---
Measurements Intervals [place] Rate: 85 P: 93 WV: 221 QRS: 85 QRSD: 102 T: -25 QT: 417 QTc: 499 Interpretive Statements ELECTRONIC ATRIAL PACEMAKER WITH INHIBITION FREQUENT VENTRICULAR PREMATURE COMPLEXES DELAYED PRECORDIAL R/S TRANSITION LOW QRS VOLTAGE IN LIMB LEADS BORDERLINE ST-T WAVE ABNORMALITY- INF/LAT LEADS ABNORMAL ECG Electronically Signed On 02-17-2022 10:08:35 CDT by Wero Horton D.O.
--- NOTE | 2022-02-17 06:38 | PM.PNCARD ---
Progress Note: A&P Assessment and Plan (1) CAD (coronary artery disease): Qualifiers: Coronary Disease-Associated Artery/Lesion type: [place] artery [place] vs. transplanted heart: [place] heart Associated angina: without angina Qualified Code(s): I25.10 - Atherosclerotic heart disease of [place] coronary artery without angina pectoris Code(s): I25.10 - Atherosclerotic heart disease of [place] coronary artery without angina pectoris Status: Acute (2) Atrial fibrillation with RVR: Code(s): I48.91 - Unspecified atrial fibrillation Status: Acute (3) Acute on chronic heart failure with reduced ejection fraction and diastolic dysfunction: Code(s): I50.43 - Acute on chronic combined systolic (congestive) and diastolic (congestive) heart failure Status: Acute Plan Very challenging case of a 71-year-old man with severe ischemic cardiomyopathy appears to have destabilized when he came into the hospital with AF with RVR. Very happy to see that he is back in sinus rhythm this morning. I will continue amiodarone at oral loading dose for the time being. He I will transition his metoprolol to carvedilol and start Entresto which would be a much more effective regimen for his heart failure. Metoprolol for rate control should not be necessary if he is in sinus rhythm. His long-term prognosis is of course still very poor but he certainly has a better chance of surviving this hospitalization if he maintains sinus rhythm. I tried to give him some hope in that regard this morning. I believe Milrinone should be discontinued at this time as well John Paul Nava MD [facility] Subjective Date/time seen: Date of service: 02/17/22 06:38 Interval history: Follow-up visit in this 71-year-old man with: Severe cardiomyopathy with history of coronary artery disease who receives his care elsewhere. Patient presented to this hospital with severe shortness of breath and AF with RVR. He previously was taking only a modest dose of metoprolol for his cardiomyopathy and anticoagulation with warfarin. Has been receiving Milrinone infusion for several days and oral amiodarone at loading dose of 400 mg q.8 hours. This morning patient states that he had shortness of breath last night lying down when he is up during the day he is not dyspneic. Very happy to see this morning that he has converted to sinus rhythm. If this is maintained will be of tremendous help in treating his heart failure. The patient remains despondent despite expecting not to survive this hospitalization. He is not interested in advanced heart failure therapies as was mentioned in my partner's notes the last couple of days. Exam Const: Other: Chronically ill-appearing gentleman who is in no significant distress but does have some conversational dyspnea HENMT: Mouth: Yes moist mucous membranes Eyes: Sclera: sclerae normal Neck: Neck: supple Resp: Effort & Inspection: normal respiratory effort Other: Few crackles at the bases otherwise largely clear breath sounds Cardio: Rate: regular rate Rhythm: regular rhythm Other: Very soft apical systolic murmur audible no gallop GI: GI Palp: Yes Soft to palpation Auscultation: normal bowel sounds Skin: General skin exam: normal color Neuro: Other: Normal cognition Extrem: Other: Good distal pulses, no edema Objective Data Vital Signs Vital Signs: Vital Signs - 24 hr 02/16/22 08:10 02/16/22 08:16 02/16/22 08:21 Temperature Pulse Rate 103 H 106 H 112 H Respiratory Rate 18 18 18 Blood Pressure Pulse Oximetry 96 Oxygen Delivery Nasal Cannula Oxygen Flow Rate 3 02/16/22 08:00 02/16/22 08:00 02/16/22 08:57 Temperature 36.6 C Pulse Rate 118 H Respiratory Rate 20 Blood Pressure 84/37 L 112/60 84/37 L Pulse Oximetry 100 Oxygen Delivery Oxygen Flow Rate 02/16/22 08:57 02/16/22 08:00 02/16/22 08:00 Temperature Pulse Rate 119 H Respirat
--- NOTE | 2022-02-17 07:52 | PM.IMPN ---
Progress Note: A&P Assessment and Plan (1) CHF (congestive heart failure): Code(s): I50.9 - Heart failure, unspecified Status: Acute Assessment and Plan: Patient presents with shortness of breath found to acute on chronic systolic and diastolic CHF. BNP is 25K. Chest x-ray was clear but CT of the abdomen and pelvis showed mild pulmonary edema with small pleural effusions. Echo here shows EF of 15% with [id number] MR. Diastolic function indeterminate. Troponin was elevated to 0.051 but flat. EKG showed AFib with RVR and nonspecific ST T wave changes. He has acute kidney injury probably related to cardiorenal syndrome from the rapid ventricular response and poor EF. He also has elevated liver enzymes related to hepatic congestion from the uncontrolled AFib and poor EF. He was started on Milrinone 02/13. Liver enzymes improving and Renal function better. Amio started for uncontrolled HR. Appreciate Cardiology input. Lasix on hold. -02/16/22 Cardiology plans to discontinue milrinone at this time and may need to consider holding amiodarone vs reducing dose with rising LFTs. Amiodarone held this morning. BP has been soft. Metoprolol has been held Appreciate recommendations from Cardiology -Discussed goals of care with patient and patient is amenable to information about hospice. Patient discussed with care coordination and order placed for hospice consult with care coordination. -02/17/22 Patient appears better. Discussed with patient the need to try to wean oxygen in order to hopefully discharge the patient without oxygen. Anxiety is likely contributing to this need for oxygen. Patient is a former smoker saturation 98% on 2L. Nursing present during this discussion. Appreciate recommendations from Cardiology. (2) Afib: Code(s): I48.91 - Unspecified atrial fibrillation Status: Acute Assessment and Plan: Patient presents for shortness of breath and found to have AFib with RVR. Patient with chronic AFib. Pacemaker placed about 8 years ago. Started on diltiazem for rate control but transitioned to oral metoprolol. Rate uncontrolled so Amiodarone started (02/14) He remains on Milrinone INR 3.5. Coumadin held Metoprolol and Amiodarone doses increased Continue telemetry monitoring. Daily INR. Appreciate Cardiology input. -02/16/22 - INR still supratherapeutic at 4.1 today. Will continue to hold warfarin. Appreciate Cardiology recommendations. -02/17/22 INR 3.6 today. Will continue to hold with plan to likely restart warfarin tomorrow evening. (3) Acute kidney injury: Code(s): N17.9 - Acute kidney failure, unspecified Status: Acute Assessment and Plan: Creatinine 2.2 on admission. Baseline creatinine is 1-1.3. UA is bland. No contrast exposure. No recent infections. Blood pressures soft but stable. Renal US normal Suspect MIMA related to the low EF worsened by AFib with RVR causing poor perfusion to the kidneys (Cardiorenal syndrome). Renal function better at 1.6. Continue to monitor renal function. -02/16/22 creatinine up to 2.1 this morning likely secondary to heart failure with soft BP w/ hypoperfusion. -02/17/22 with patient now in sinus hopefully this will improve tomorrow. Creatinine still at 2.1 today. (4) Elevated troponin: Code(s): R77.8 - Other specified abnormalities of plasma proteins Status: Acute Assessment and Plan: Troponin to 0.051. EKG shows nonspecific ST T wave changes during the time of AFib with RVR. Echo as mentioned above. [place] elevated Trop related to acute CHF. Continue medical management as mentioned above. (5) Elevated LFTs: Code(s): R79.89 - Other specified abnormal findings of blood chemistry Status: Acute Assessment and Plan: Patient had elevated liver function tests on admission. CT of the abdomen shows normal liver and gallbladder. RUQ US read as susan
[2022-02-17] MEDS: SACUBITRIL/VALSARTAN 12-13 MG TABLET 1 TAB PO (10:15)
[2022-02-17] MEDS: AMIODARONE HCL 200 MG TABLET 400 MG PO (10:15)
[2022-02-17] MEDS: carvediloL 3.125 MG TABLET PO (10:16)
[2022-02-17] MEDS: PANTOPRAZOLE 40 MG TABLET PO (10:17)
--- NOTE | 2022-02-17 11:31 | PCOTNOTE ---
Attempted to see pt for Occupational Therapy tx, however, pt declined stating I am just too tired today...fucking pills they give me are wiping me out. Pt was educated on the importance/benfits of continued therapy, however, pt refused. Will continue per poc duration/frequency tomorrow.
--- NOTE | 2022-02-17 13:11 | PCPTNOTE ---
Attempted PT evaluation x 2 however pt declined this date stating that his family was going to get him clean clothes and he wanted to wait to do therapy until he had clean clothes on and got cleaned up.
--- NOTE | 2022-02-17 16:39 | PC.NURSE ---
Patient's blood pressure 87/50 (62), asymptomatic at this time. Of note, patient did not take [address] Padilla aware. No new orders at this time.
[2022-02-17] MEDS: CALCIUM CARBONATE (TUMS) 500 MG (200 MG ELEMENTAL) PO (16:45)
[2022-02-18] VITALS (26 sets, daily range): BP systolic 85–127; BP diastolic 48–80; PULSE 73–92; RESP 12–20; TEMP 36.4–37; O2SAT 90–99
[2022-02-18 04:49] LABS: Basophils Absolute Auto 0.1 K/mm3 (0.0-0.1); Basophils Percent Auto 0.7 % (0.2-1.2); Eosinophils Absolute Auto 0.3 K/mm3 (0-0.3); Eosinophils Percent Auto 3.9 % (0-4.4); Hematocrit 34.4 % (42.0-52.0); Hemoglobin 11.3 g/dL (14.0-18.0); Immature Granulocyte Absolute 0.04 K/mm3 (0.00-0.031); Immature Granulocyte Percent A 0.5 % (0-0.5); Lymphocytes Absolute Auto 1.23 K/mm3 (0.9-3.2); Lymphocytes Percent Auto 15.2 % (18.3-44.2); Mean Corpuscular HGB Conc 32.8 g/dl (32-36); Mean Corpuscular Hemoglobin 28.8 pg (26-34); Mean Corpuscular Volume 87.5 fl (80-100); Mean Platelet Volume 10.1 fl (7.4-10.4); Monocytes Absolute Auto 0.7 K/mm3 (0.1-0.6); Monocytes Percent Auto 8.8 % (2.6-8.5); Neutrophils Absolute Auto 5.8 K/mm3 (1.3-6.7); Neutrophils Percent Auto 70.9 % (45.5-73.1); Nucleated Red Blood Cells Perc 0.4 % (0.0-0.2); Platelet Count Result 225 k/mm3 (150-375); Red Blood Count 3.93 M/mm3 (4.6-6.20); White Blood Count 8.1 K/mm3 (4.5-10.0)
[2022-02-18 04:58] LABS: INR 3.1; Prothrombin Time 30.7 Seconds (11.1-14.7)
[2022-02-18 05:06] LABS: Albumin Level 3.7 g/dL (3.5-5.1); Alkaline Phosphatase 109 U/L (38-126); Anion Gap 8 mmol/L (8-16); Aspartate Amino Transferase 412 U/L (17-59); Bilirubin,Total 3.8 mg/dL (0.2-1.3); Blood Urea Nitrogen 71 mg/dL (9-20); Calcium 8.7 mg/dL (8.4-10.2); Carbon Dioxide 26 mmol/L (22-30); Chloride 94 mmol/L (98-107); Estimated CRCL calculation 30 ml/min; Estimated Glomerular Filt Rate 35; Glucose 110 mg/dL (65-110); Magnesium 2.1 mg/dL (1.6-2.3); Phosphorus 3.4 mg/dL (2.5-4.5); Potassium 3.7 mmol/L (3.4-5.0); Sodium 128 mmol/L (137-145)
[2022-02-18 05:27] LABS: Alanine Aminotransferase 830 U/L (6-50)
--- NOTE | 2022-02-18 07:50 | PM.IMPN ---
Progress Note: A&P Assessment and Plan (1) CHF (congestive heart failure): Code(s): I50.9 - Heart failure, unspecified Status: Acute Assessment and Plan: Patient presents with shortness of breath found to acute on chronic systolic and diastolic CHF. BNP is 25K. Chest x-ray was clear but CT of the abdomen and pelvis showed mild pulmonary edema with small pleural effusions. Echo here shows EF of 15% with [id number] MR. Diastolic function indeterminate. Troponin was elevated to 0.051 but flat. EKG showed AFib with RVR and nonspecific ST T wave changes. He has acute kidney injury probably related to cardiorenal syndrome from the rapid ventricular response and poor EF. He also has elevated liver enzymes related to hepatic congestion from the uncontrolled AFib and poor EF. He was started on Milrinone 02/13. Liver enzymes improving and Renal function better. Amio started for uncontrolled HR. Appreciate Cardiology input. Lasix on hold. -02/16/22 Cardiology plans to discontinue milrinone at this time and may need to consider holding amiodarone vs reducing dose with rising LFTs. Amiodarone held this morning. BP has been soft. Metoprolol has been held Appreciate recommendations from Cardiology -Discussed goals of care with patient and patient is amenable to information about hospice. Patient discussed with care coordination and order placed for hospice consult with care coordination. -02/17/22 Patient appears better. Discussed with patient the need to try to wean oxygen in order to hopefully discharge the patient without oxygen. Anxiety is likely contributing to this need for oxygen. Patient is a former smoker saturation 98% on 2L. Nursing present during this discussion. Appreciate recommendations from Cardiology. -02/18/22 Patient clinically improved now that he is in NSR and off oxygen. Entresto was held overnight. Cardiac medicatons may need adjustment. Appreciate recommendations from Cardiology. (2) Afib: Code(s): I48.91 - Unspecified atrial fibrillation Status: Acute Assessment and Plan: Patient presents for shortness of breath and found to have AFib with RVR. Patient with chronic AFib. Pacemaker placed about 8 years ago. Started on diltiazem for rate control but transitioned to oral metoprolol. Rate uncontrolled so Amiodarone started (02/14) He remains on Milrinone INR 3.5. Coumadin held Metoprolol and Amiodarone doses increased Continue telemetry monitoring. Daily INR. Appreciate Cardiology input. -02/16/22 - INR still supratherapeutic at 4.1 today. Will continue to hold warfarin. Appreciate Cardiology recommendations. -02/17/22 INR 3.6 today. Will continue to hold with plan to likely restart warfarin tomorrow evening. -02/18/22 INR 3.1 today. Ordered warfarin to restart this evening. (3) Acute kidney injury: Code(s): N17.9 - Acute kidney failure, unspecified Status: Acute Assessment and Plan: Creatinine 2.2 on admission. Baseline creatinine is 1-1.3. UA is bland. No contrast exposure. No recent infections. Blood pressures soft but stable. Renal US normal Suspect MIMA related to the low EF worsened by AFib with RVR causing poor perfusion to the kidneys (Cardiorenal syndrome). Renal function better at 1.6. Continue to monitor renal function. -02/16/22 creatinine up to 2.1 this morning likely secondary to heart failure with soft BP w/ hypoperfusion. -02/17/22 with patient now in sinus hopefully this will improve tomorrow. Creatinine still at 2.1 today. -02/18/22 Creatinine improved today. Will monitor. (4) Elevated troponin: Code(s): R77.8 - Other specified abnormalities of plasma proteins Status: Acute Assessment and Plan: Troponin to 0.051. EKG shows nonspecific ST T wave changes during the time of AFib with RVR. Echo as mentioned above. [place] elevated Trop related to acute CHF. Continue medical ma
[2022-02-18] MEDS: FERROUS SULFATE 324 MG TABLET PO (09:30)
[2022-02-18] MEDS: AMIODARONE HCL 200 MG TABLET 400 MG PO (09:31)
[2022-02-18] MEDS: PANTOPRAZOLE 40 MG TABLET PO (09:31)
[2022-02-18] MEDS: DOCUSATE SODIUM 100 MG CAPSULE PO (09:31)
[2022-02-18] MEDS: SACUBITRIL/VALSARTAN 12-13 MG TABLET 1 TAB PO ×2 (09:32→20:26)
--- NOTE | 2022-02-18 09:55 | PM.PNCARD ---
Progress Note: A&P Assessment and Plan (1) ICD (implantable cardioverter-defibrillator) in place: Code(s): Z95.810 - Presence of automatic (implantable) cardiac defibrillator Status: Acute (2) Atrial fibrillation with RVR: Code(s): I48.91 - Unspecified atrial fibrillation Status: Acute (3) Acute on chronic heart failure with reduced ejection fraction and diastolic dysfunction: Code(s): I50.43 - Acute on chronic combined systolic (congestive) and diastolic (congestive) heart failure Status: Acute Plan Severe/profound ischemic cardiomyopathy improving the last couple of days now that he is out of atrial fibrillation. Sinus rhythm yesterday today he is predominantly atrially paced. I will continue the Entresto and carvedilol at low doses. Amiodarone will be reduced to 400 mg daily at this time in hopes that this will keep him out of AF. Patient is now more optimistic that he may survive this event. Prior to the last 48 hours when he was in AFib he was anticipating not surviving this hospitalization. No other medical adjustments to suggest today. John Paul Nava MD [facility] Subjective Date/time seen: Date of service: 02/18/22 09:55 Interval history: Follow-up visit in this 71-year-old man with: Severe/profound ischemic cardiomyopathy presenting with hemodynamic decompensation probably because of the development of AFib with RVR which was tolerated very poorly hemodynamically. Very good that he converted to sinus rhythm with amiodarone treatment. He feels better today. Blood pressure is soft but he is not symptomatic with this. Rhythm this morning is atrially paced with PVCs occasionally. Continues with p.o. amiodarone at 1200 mg daily. Exam Const: General: comfortable and no acute distress Other: Pleasant frail elderly man does look more comfortable the last couple of days. Still reported some positional dyspnea last night HENMT: Mouth: Yes moist mucous membranes Eyes: Sclera: sclerae normal Neck: Neck: supple and no JVD Resp: Effort & Inspection: normal respiratory effort Other: Largely clear breath sounds at this time, scant crackles at the left base Cardio: Rate: regular rate Rhythm: regular rhythm Other: PMI laterally displaced/no murmur GI: GI Palp: Yes Soft to palpation Auscultation: normal bowel sounds Skin: General skin exam: normal color Neuro: Other: Normal cognition Extrem: General: normal to inspection Other: No significant edema Objective Data Vital Signs Vital Signs: Vital Signs - 24 hr 02/17/22 10:15 02/17/22 10:16 02/17/22 12:00 Temperature 36.6 C Pulse Rate 85 87 82 Respiratory Rate 12 Blood Pressure 91/62 L Pulse Oximetry 92 Oxygen Delivery Oxygen Flow Rate 02/17/22 12:00 02/17/22 14:18 02/17/22 14:26 Temperature Pulse Rate 80 81 Respiratory Rate 20 20 Blood Pressure Pulse Oximetry 100 Oxygen Delivery Nasal Cannula Oxygen Flow Rate 2 02/17/22 10:00 02/17/22 12:00 02/17/22 14:00 Temperature Pulse Rate 86 83 79 Respiratory Rate Blood Pressure Pulse Oximetry Oxygen Delivery Oxygen Flow Rate 02/17/22 16:00 02/17/22 16:00 02/17/22 16:51 Temperature 36.3 C L Pulse Rate 77 81 Respiratory Rate 12 Blood Pressure 70/36 L 87/50 L Pulse Oximetry 90 Oxygen Delivery Oxygen Flow Rate 02/17/22 16:00 02/17/22 16:00 02/17/22 17:00 Temperature Pulse Rate 80 Respiratory Rate Blood Pressure Pulse Oximetry 98 Oxygen Delivery Room Air Nasal Cannula Oxygen Flow Rate 1 02/17/22 18:00 02/17/22 19:56 02/17/22 19:45 Temperature Pulse Rate 81 144 H 144 H Respiratory Rate 18 18 Blood Pressure Pulse Oximetry 92 Oxygen Delivery Room Air Oxygen Flow Rate 02/17/22 19:55 02/17/22 20:00 02/17/22 20:00 Temperature 37.3 C Pulse Rate 132 H 82 Respiratory Rate 18 20 Blood Pressure 92/52 L 92/52 L Pulse Oximetry 92
[2022-02-18] MEDS: carvediloL 3.125 MG TABLET PO ×2 (14:59→20:26)
[2022-02-18] MEDS: WARFARIN (*PBKC) 2 MG TABLET PO (18:24)
[2022-02-18] MEDS: hydrOXYzine HCL 25 MG TABLET PO (18:27)
[2022-02-19] VITALS (12 sets, daily range): BP systolic 96; BP diastolic 50; PULSE 70–78; RESP 18–20; TEMP 36.6; O2SAT 90–97
[2022-02-19] MEDS: hydrOXYzine HCL 25 MG TABLET PO (00:17)
[2022-02-19] MEDS: ACETAMINOPHEN 325 MG TABLET 650 MG PO (03:32)
[2022-02-19 04:43] LABS: Alanine Aminotransferase 546 U/L (6-50); Albumin Level 3.3 g/dL (3.5-5.1); Alkaline Phosphatase 120 U/L (38-126); Anion Gap 8 mmol/L (8-16); Aspartate Amino Transferase 161 U/L (17-59); Bilirubin,Total 2.6 mg/dL (0.2-1.3); Blood Urea Nitrogen 70 mg/dL (9-20); Calcium 8.3 mg/dL (8.4-10.2); Carbon Dioxide 26 mmol/L (22-30); Chloride 95 mmol/L (98-107); Estimated CRCL calculation 32 ml/min; Estimated Glomerular Filt Rate 37; Glucose 105 mg/dL (65-110); Potassium 3.8 mmol/L (3.4-5.0); Sodium 129 mmol/L (137-145)
[2022-02-19 04:44] LABS: INR 3.2; Prothrombin Time 31.5 Seconds (11.1-14.7)
--- NOTE | 2022-02-19 07:48 | PM.IMPN ---
Subjective Date/time seen: 02/19/22 07:48 Objective Data Vital Signs Vital Signs: Vital Signs - 24 hr 02/18/22 08:00 02/18/22 08:28 02/18/22 08:31 Temperature 98.2 F Pulse Rate 78 78 Respiratory Rate 16 18 Blood Pressure 100/67 Pulse Oximetry 97 93 Oxygen Delivery Room Air Oxygen Flow Rate 02/18/22 08:38 02/18/22 09:31 02/18/22 08:00 Temperature Pulse Rate 73 78 75 Respiratory Rate 20 20 Blood Pressure Pulse Oximetry 98 Oxygen Delivery Room Air Oxygen Flow Rate 02/18/22 08:00 02/18/22 10:00 02/18/22 12:00 Temperature Pulse Rate 75 82 Respiratory Rate Blood Pressure Pulse Oximetry Oxygen Delivery Room Air Oxygen Flow Rate 02/18/22 12:00 02/18/22 12:00 02/18/22 14:20 Temperature 98.2 F Pulse Rate 78 79 74 Respiratory Rate 12 18 Blood Pressure 97/58 L Pulse Oximetry 96 Oxygen Delivery Oxygen Flow Rate 02/18/22 14:26 02/18/22 14:59 02/18/22 14:00 Temperature Pulse Rate 75 75 77 Respiratory Rate 18 Blood Pressure Pulse Oximetry Oxygen Delivery Oxygen Flow Rate 02/18/22 16:00 02/18/22 16:00 02/18/22 16:00 Temperature 98.3 F Pulse Rate 75 92 Respiratory Rate 20 Blood Pressure 113/79 Pulse Oximetry 97 Oxygen Delivery Room Air Oxygen Flow Rate 02/18/22 18:00 02/18/22 18:00 02/18/22 18:10 Temperature Pulse Rate 79 79 82 Respiratory Rate 18 18 Blood Pressure Pulse Oximetry 99 Oxygen Delivery Room Air Oxygen Flow Rate 02/18/22 18:00 02/18/22 20:00 02/18/22 20:00 Temperature 98.6 F Pulse Rate 82 90 Respiratory Rate 20 Blood Pressure 127/80 127/80 Pulse Oximetry 98 Oxygen Delivery Oxygen Flow Rate 02/18/22 20:26 02/18/22 20:00 02/18/22 20:00 Temperature Pulse Rate 76 76 76 Respiratory Rate 20 Blood Pressure Pulse Oximetry 98 Oxygen Delivery Nasal Cannula Oxygen Flow Rate 2 02/18/22 22:00 02/18/22 23:22 02/19/22 00:00 Temperature 98.0 F Pulse Rate 78 76 76 Respiratory Rate 18 Blood Pressure 96/60 L Pulse Oximetry 90 Oxygen Delivery Oxygen Flow Rate 02/19/22 00:00 02/19/22 02:00 02/19/22 02:45 Temperature Pulse Rate 76 70 78 Respiratory Rate 18 20 Blood Pressure Pulse Oximetry 90 Oxygen Delivery Nasal Cannula Oxygen Flow Rate 2 02/19/22 03:00 02/19/22 03:31 02/19/22 04:00 Temperature 97.8 F Pulse Rate 75 75 75 Respiratory Rate 20 20 Blood Pressure 96/50 L Pulse Oximetry 95 97 Oxygen Delivery Nasal Cannula Oxygen Flow Rate 2 02/19/22 04:00 02/19/22 04:00 02/19/22 06:00 Temperature Pulse Rate 75 75 70 Respiratory Rate 20 Blood Pressure Pulse Oximetry 97 Oxygen Delivery Nasal Cannula Oxygen Flow Rate 2 Intake/Output Intake/Output: Intake & Output 02/16/22 02/17/22 02/18/22 02/19/22 23:59 23:59 23:59 23:59 Intake Total 1935 1870 480 Output Total 7566 491 6534 100 Balance 585 1770 -820 -100 Meds/Results Medications: Active Medications Generic Name Dose Route Start Last Admin Trade Name Freq PRN Reason Stop Dose Admin Acetaminophen 650 mg 02/12/22 17:01 02/19/22 03:32 Acetaminophen 325 Mg Tablet PO 650 mg Q4H PRN Administration Mild Pain (1-3) or Fever Amiodarone HCl 400 mg 02/19/22 09:00 Amiodarone Hcl 200 Mg Tablet PO DAILY [facility] Calcium Carbonate 200 mg 02/16/22 18:02 02/17/22 16:45 Calcium Carbonate (Tums) 500 Mg (200 Mg Elemental) PO 200 mg Q6H PRN Administration Indigestion Carvedilol 3.125 mg 02/17/22 09:00 02/18/22 20:26 Carvedilol 3.125 Mg Tablet PO 3.125 mg Q12HR [facility] Administration Docusate Sodium 100 mg 02/13/22 09:00 02/18/22 17:01 Docusate Sodium 100 Mg Capsule PO Not Given BID TJ Ferrous Sulfate 324 mg 02/14/22 17:00 02/18/22 17:01 Ferrous Sulfate 324 Mg Tablet PO Not Given BIDWM [facility] Hydroxyzine HCl 25 mg 02/17/22 10:54 02/19/22 00
--- NOTE | 2022-02-19 07:48 | PM.DS ---
DS: Admitting Diagnosis Discharge Date 02/19/22 Admitting Diagnosis Shortness of breath, weakness DS: Discharge Diagnosis Discharge Diagnosis (1) CHF (congestive heart failure): Code(s): I50.9 - Heart failure, unspecified Status: Acute Assessment and Plan: Patient presents with shortness of breath found to acute on chronic systolic and diastolic CHF. BNP is 25K. Chest x-ray was clear but CT of the abdomen and pelvis showed mild pulmonary edema with small pleural effusions. Echo here shows EF of 15% with [id number] MR. Diastolic function indeterminate. Troponin was elevated to 0.051 but flat. EKG showed AFib with RVR and nonspecific ST T wave changes. He has acute kidney injury probably related to cardiorenal syndrome from the rapid ventricular response and poor EF. He also has elevated liver enzymes related to hepatic congestion from the uncontrolled AFib and poor EF. He was started on Milrinone 02/13. Liver enzymes improving and Renal function better. Amio started for uncontrolled HR. Appreciate Cardiology input. Lasix on hold. -02/16/22 Cardiology plans to discontinue milrinone at this time and may need to consider holding amiodarone vs reducing dose with rising LFTs. Amiodarone held this morning. BP has been soft. Metoprolol has been held Appreciate recommendations from Cardiology -Discussed goals of care with patient and patient is amenable to information about hospice. Patient discussed with care coordination and order placed for hospice consult with care coordination. -02/17/22 Patient appears better. Discussed with patient the need to try to wean oxygen in order to hopefully discharge the patient without oxygen. Anxiety is likely contributing to this need for oxygen. Patient is a former smoker saturation 98% on 2L. Nursing present during this discussion. Appreciate recommendations from Cardiology. -02/18/22 Patient clinically improved now that he is in NSR and off oxygen. Entresto was held overnight. Cardiac medications may need adjustment. Appreciate recommendations from Cardiology. -02/19/22 Patient improved and has been accepted by [facility] hospice. Patient will be discharged home with home hosice. (2) Afib: Code(s): I48.91 - Unspecified atrial fibrillation Status: Acute Assessment and Plan: Patient presents for shortness of breath and found to have AFib with RVR. Patient with chronic AFib. Pacemaker placed about 8 years ago. Started on diltiazem for rate control but transitioned to oral metoprolol. Rate uncontrolled so Amiodarone started (02/14) He remains on Milrinone INR 3.5. Coumadin held Metoprolol and Amiodarone doses increased Continue telemetry monitoring. Daily INR. Appreciate Cardiology input. -02/16/22 - INR still supratherapeutic at 4.1 today. Will continue to hold warfarin. Appreciate Cardiology recommendations. -02/17/22 INR 3.6 today. Will continue to hold with plan to likely restart warfarin tomorrow evening. -02/18/22 INR 3.1 today. Ordered warfarin to restart this evening. -02/19/22 INR 3.2 today and was given warfarin overnight. Will instruct patient to hold warfarin tonight after discharge and restart Wednesday 02/21. (3) Acute kidney injury: Code(s): N17.9 - Acute kidney failure, unspecified Status: Acute Assessment and Plan: Creatinine 2.2 on admission. Baseline creatinine is 1-1.3. UA is bland. No contrast exposure. No recent infections. Blood pressures soft but stable. Renal US normal Suspect MIMA related to the low EF worsened by AFib with RVR causing poor perfusion to the kidneys (Cardiorenal syndrome). Renal function better at 1.6. Continue to monitor renal function. -02/16/22 creatinine up to 2.1 this morning likely secondary to heart failure with soft BP w/ hypoperfusion. -02/17/22 with patient now in sinus hopefully this will improve tomorrow. Creatinine still at 2.1 today. -02/18/22 Creat
[2022-02-19] MEDS: PANTOPRAZOLE 40 MG TABLET PO (09:18)
--- NOTE | 2022-02-19 09:18 | PM.PNCARD ---
Progress Note: A&P Assessment and Plan (1) Acute on chronic heart failure with reduced ejection fraction and diastolic dysfunction: Code(s): I50.43 - Acute on chronic combined systolic (congestive) and diastolic (congestive) heart failure Status: Acute Assessment and Plan: Severe LV dysfunction, EF 15%. Significantly improved from a symptomatic standpoint over the weekend, likely largely because he has converted to sinus rhythm. Continue low dose Entresto Continue coreg Not on diuretic therapy at this point OK for discharge today from a cardiac standpoint. He is aware that he should follow up with his primary mat roller, Dr. Zavala within 1-2 weeks. (2) Atrial fibrillation with RVR: Code(s): I48.91 - Unspecified atrial fibrillation Status: Acute Assessment and Plan: Converted to sinus rhythm on amiodarone. This has been decreased to 400mg daily. (3) Acute kidney injury: Code(s): N17.9 - Acute kidney failure, unspecified Status: Acute Assessment and Plan: Had been improving but renal function has declined today. Continue to monitor. A/c with warfarin. (4) Elevated troponin: Code(s): R77.8 - Other specified abnormalities of plasma proteins Status: Acute Assessment and Plan: Mild elevation, fairly flat curve not consistent with acute coronary syndrome but type 2 infarction in the setting of severe LV dysfunction, decompensated heart failure, acute renal failure and atrial fibrillation with RVR at presentation. (5) COPD (chronic obstructive pulmonary disease): Qualifiers: COPD type: COPD with acute exacerbation Qualified Code(s): J44.1 - Chronic obstructive pulmonary disease with (acute) exacerbation Code(s): J44.9 - Chronic obstructive pulmonary disease, unspecified Status: Acute (6) Transaminitis: Code(s): R74.01 - Elevation of levels of liver transaminase levels Status: Acute Assessment and Plan: Most likely related to hepatic congestion and poor cardiac output. (7) Current use of buttermaker continuous churn anticoagulation: Code(s): Z79.01 - senior care (current) use of anticoagulants Status: Acute Assessment and Plan: Warfarin goal INR 2-3.? Increased to 4.1 this morning, not surprising given recent initiation of amiodarone. Worsening LFT's. Hold tonight. Daily INR. (8) CAD (coronary artery disease): Qualifiers: Associated angina: without angina Coronary Disease-Associated Artery/Lesion type: [place] artery [place] vs. transplanted heart: [place] heart Qualified Code(s): I25.10 - Atherosclerotic heart disease of [place] coronary artery without angina pectoris Code(s): I25.10 - Atherosclerotic heart disease of [place] coronary artery without angina pectoris Status: Acute (9) ICD (implantable cardioverter-defibrillator) in place: Code(s): Z95.810 - Presence of automatic (implantable) cardiac defibrillator Status: Acute Assessment and Plan: ICD interrogated results as above.? Curious intermittent ventricular pacing at max tracking rate intermittently in setting of AFib with RVR.? Otherwise, device appears to function normally, however, difficult to explain the device is behavior for intermittent V pacing and elevated rate. Subjective Date/time seen: 02/19/22 09:18 Interval history: Follow-up visit in this 71-year-old man with: Severe/profound ischemic cardiomyopathy presenting with hemodynamic decompensation probably because of the development of AFib with RVR which was tolerated very poorly hemodynamically. Feeling better today. Breathing comfortably on room air. No palpitations. Remains atrially paced with frequent PVC's. Exam Const: General: comfortable, no acute distress, alert and awake Orientation/consciousness: patient oriented x3 Other: Pleasant frail elderly man resting comfortably in bed. HENMT: Head: normal to inspectio
== END 2022-02-19 13:18 | disposition hospice, home (50) | DRG 291 ==
LOC: ANHED 13:14 → ANHIMU 14:21
PROVIDERS: Emergency Medicine; Internal Medicine; Nurse Practitioner; Admitting Provider Chiropractor; Emergency Provider Emergency Medicine; PCP Family Medicine; Visit Provider Family Medicine
DX: I13.0 Hypertensive heart and chronic kidney disease with heart failure and stage 1 through stage 4 chronic kidney disease, or unspecified chronic kidney disease (principal); I50.43 Acute on chronic combined systolic (congestive) and diastolic (congestive) heart failure; I48.20 Chronic atrial fibrillation, unspecified; J44.1 Chronic obstructive pulmonary disease with (acute) exacerbation; N17.9 Acute kidney failure, unspecified; N18.9 Chronic kidney disease, unspecified; I25.10 Atherosclerotic heart disease of native coronary artery without angina pectoris; I25.5 Ischemic cardiomyopathy; I34.0 Nonrheumatic mitral (valve) insufficiency; R77.8 Other specified abnormalities of plasma proteins; R42 Dizziness and giddiness; R74.01 Elevation of levels of liver transaminase levels; E78.5 Hyperlipidemia, unspecified; R79.89 Other specified abnormal findings of blood chemistry; Z20.822 Contact with and (suspected) exposure to COVID-19; Z79.01 Long term (current) use of anticoagulants; Z87.891 Personal history of nicotine dependence; Z95.810 Presence of automatic (implantable) cardiac defibrillator
CPT/HCPCS: 36415; 71045; 74176; 76705; 76775; 80053; 80074; 81001; 82550; 82570; 82607; 82728; 82746; 83540; 83550; 83735; 83880; 84100; 84300; 84484; 85025; 85610; 85730; 85999; 93005; 93306; 93880; 94640; 96365; 96366; 96367; 96375; 97110; 97161; 97165; 97535; 99285; A9270; C9803; G0378; J2260; J2405; J7030; U0003; U0005

== ENCOUNTER 2022-08-07 16:54 | Emergency (ER) | payer MEDICARE, SELFPAY ==
[2022-08-07 17:29] VITALS: BP 105/86; PULSE 77; RESP 18; TEMP 36.6; O2SAT 97
== END 2022-08-07 17:42 | disposition left against medical advice (07) ==
LOC: ANHED 18:05
DX: R05.9 Cough, unspecified (principal)
CPT/HCPCS: 99199

== ENCOUNTER 2022-08-12 13:48 | Emergency (ER) | payer MEDICARE, SELFPAY ==
[2022-08-12] VITALS (7 sets, daily range): BP systolic 128–139; BP diastolic 81–100; PULSE 70–96; RESP 16–28; TEMP 36.1; O2SAT 96–100
--- NOTE | ~2022-08-12 | XR_ITS ---
XR chest 1V portable 08/12/2022 14:20 Indication: Cough. Dyspnea. Procedure: AP portable chest Comparison: 02/16 and 02/12/2022 Findings: Cardiomegaly. No focal air space disease, pulmonary edema, pleural effusion or suspected pn eumothorax. Pacemaker leads are stable. Calcified right hilar lymph nodes, consistent with chronic gr anulomatous disease. Impression: 1: No acute cardiopulmonary disease. Reviewed, dictated and finalized at location A. OPERATOR HELPER Impression: 1: No acute cardiopulmonary disease.
--- NOTE | 2022-08-12 13:53 | ECG_ITS ---
Measurements Intervals [place] Rate: 85 P: 65 SD: 206 QRS: 90 QRSD: 113 T: 154 QT: 300 QTc: 357 Interpretive Statements SINUS RHYTHM INCOMPLETE LEFT BUNDLE BRANCH BLOCK LOW QRS VOLTAGE IN LIMB LEADS BORDERLINE R WAVE PROGRESSION, ANTERIOR LEADS BORDERLINE ST-T WAVE ABNORMALITY- INFERIOR LEADS BASELINE ARTIFACT- I, II, III, AVR, AVL, AVF, V1-V6 ABNORMAL ECG COMPARED TO ECG 02/17/2022 08:33:34 SINUS RHYTHM NOW PRESENT INCOMPLETE LEFT BUNDLE BRANCH BLOCK NOW PRESENT ST (T WAVE) DEVIATION NOW PRESENT Electronically Signed On 08-12-2022 15:11:58 INVENTORY AUDITOR by Wero Horton D.O.
--- NOTE | 2022-08-12 14:12 | ED.URI ---
HPI - URI/Sore Throat General Chief Complaint: Upper Respiratory Infection Stated Complaint: cough, runny nose and dyspnea Time Seen by Provider: 08/12/22 14:05 History of Present Illness HPI Narrative: Patient is a 71-year-old male with a history of COPD, CHF, a fib, status post pacemaker placement, on eliquis, here for evaluation of shortness of breath, cough and congestion over the past 2 months. Patient states that he started feeling unwell around Thanksgiving. He has been taking his albuterol nebulizers with transient relief of his symptoms. Presents today due to longevity of symptoms. He has not taken a COVID test. He is fully vaccinated against COVID and flu. No chest pain, leg swelling, fevers or chills, nausea or vomiting, abdominal pain. Related Data Home Medications Medication Instructions Recorded Confirmed warfarin 2 mg tablet 2 mg PO DAILY 01/09/21 02/12/22 pantoprazole 40 mg tablet,delayed 40 mg PO QAM 02/12/22 02/12/22 release amiodarone 100 mg tablet mg 08/12/22 amiodarone 200 mg tablet mg 08/12/22 ramipril 5 mg capsule mg 08/12/22 08/12/22 Allergies Allergy/AdvReac Type Severity Reaction Status Date / Time codeine AdvReac Mild HALLUCINATI Verified 08/12/22 14:12 ONS Review of Systems Review of Systems: Gen: Denies fevers or chills Eyes: Denies eye pain or visual change ENT: reports congestion and cough Respiratory: reports SOB CV: Denies chest pain or palpitations GI: Denies abdominal pain nausea, emesis or diarrhea : denies burning, urgency, frequency or hematuria Musculoskeletal: Denies back pain or muscle pain Neuro: Denies numbness, tingling, weakness or focal weakness Skin: Denies rash Except as documented, all other systems reviewed and negative [facility] Past Medical History Medical History Afib CHF (congestive heart failure) COPD (chronic obstructive pulmonary disease) HLD (hyperlipidemia) HTN (hypertension) Pacemaker Family History Family History Father Heart disease Other Cerebrovascular accident Mother Kidney failure Heart disease Acute myocardial infarction Social History Social History Social History: Patient lives on his own. He denies having any children or pets. Jorge his brother is his surrogate. and he wishes to be a full code. Smoking packs per day: 0.5 Smoking cigarettes per day: 10.0 Years smoked: 18 Smoking pack-years: 9.00 Smoking status: Former smoker Alcohol intake: current Drinks per week: 2 Substance use: never Substance use type: does not use Gender identity (if verbalized by the patient): Male Sexual Orientation (if Verbalized by the Patient): Straight or Heterosexual Spiritual care concerns: No Agree to blood products: Yes Exam Narrative: APPEARANCE: Well appearing, no pain in distress, well-nourished. Head: Normocephalic and atraumatic. EYES: PERRLA/EOMI, conjunctivae clear NOSE: No nasal drainage EARS: External ear normal in appearance THROAT: Oropharynx is clear. Mucous membranes are moist. NECK: Supple. No adenopathy, no masses. RESPIRATORY: Expiratory wheezing throughout lung bower. Airway patent, respirations nonlabored. CARDIOVASCULAR: Regular rate and rhythm without murmurs, rubs, or gallops. ABDOMINAL: Normoactive bowel sounds. Soft, nontender, nondistended. No rebound tenderness or guarding. MUSCULOSKELETAL: Extremities are warm and well-perfused. Moves all extremities well. No edema. NEURO: Normal speech. No focal neurologic deficits. SKIN: Skin is warm and dry. No rashes. PSYCHIATRIC: Normal affect/mood. Course Vital Signs Vital signs: Vital Signs Temperature 97.0 F L 08/12/22 13:54 Pulse Rate 96 08/12/22 13:54 Respiratory Rate 18 08/12/22 13:54 Blood Pressure 136/100 H 08/12/22 13:54 Pulse Oximet
[2022-08-12 14:15] LABS: Basophils Absolute Auto 0.1 K/mm3 (0.0-0.1); Basophils Percent Auto 0.8 % (0.2-1.2); Eosinophils Absolute Auto 0.4 K/mm3 (0-0.3); Eosinophils Percent Auto 3.8 % (0-4.4); Hematocrit 41.4 % (42.0-52.0); Immature Granulocyte Absolute 0.04 K/mm3 (0.00-0.031); Immature Granulocyte Percent A 0.4 % (0-0.5); Lymphocytes Percent Auto 13.8 % (18.3-44.2); Mean Corpuscular HGB Conc 31.4 g/dl (32-36); Mean Corpuscular Hemoglobin 29.5 pg (26-34); Mean Corpuscular Volume 93.9 fl (80-100); Monocytes Absolute Auto 0.9 K/mm3 (0.1-0.6); Monocytes Percent Auto 8.2 % (2.6-8.5); Platelet Count Result 394 k/mm3 (150-375); Red Blood Count 4.41 M/mm3 (4.6-6.20); White Blood Count 10.9 K/mm3 (4.5-10.0)
[2022-08-12] MEDS: IPRATROPIUM BR 0.02% INH SOLN 0.5 MG/2.5 ML VIAL INHALATION (14:20)
[2022-08-12] MEDS: ALBUTEROL SULFATE NEB 2.5 MG/3 ML INH 5 MG INHALATION (14:20)
[2022-08-12 14:26] LABS: Alanine Aminotransferase 19 U/L (6-50); Alkaline Phosphatase 60 U/L (38-126); Anion Gap 6 mmol/L (8-16); Aspartate Amino Transferase 27 U/L (17-59); Bilirubin,Total 1.4 mg/dL (0.2-1.3); Blood Urea Nitrogen 15 mg/dL (9-20); Carbon Dioxide 32 mmol/L (22-30); Chloride 100 mmol/L (98-107); Estimated CRCL calculation 47 ml/min; Estimated Glomerular Filt Rate 59; Glucose 103 mg/dL (65-110); Potassium 4.2 mmol/L (3.4-5.0); Sodium 138 mmol/L (137-145)
[2022-08-12 14:35] LABS: NT Pro B Type Natriuretic Pept 7400 pg/mL (5-100)
[2022-08-12 15:18] LABS: Influenza A QL RT-PCR Negative (Negative); Influenza B QL RT-PCR Negative (Negative); SARS-CoV-2 RNA PCR Positive
[2022-08-12 16:12] LABS: INR 1.2; Prothrombin Time 14.5 Seconds (11.1-14.7)
[2022-08-12 16:13] LABS: Partial Thromboplastin Time 35.2 SECONDS (22.3-36.8)
== END 2022-08-12 17:05 | disposition home or self-care (01) ==
PROVIDERS: Emergency Medicine; Emergency Provider Physician Assistant
DX: U07.1 COVID-19 (principal); J44.1 Chronic obstructive pulmonary disease with (acute) exacerbation; I50.9 Heart failure, unspecified; I11.0 Hypertensive heart disease with heart failure; I48.91 Unspecified atrial fibrillation; E78.5 Hyperlipidemia, unspecified; Z95.0 Presence of cardiac pacemaker; Z87.891 Personal history of nicotine dependence; Z79.01 Long term (current) use of anticoagulants; I44.7 Left bundle-branch block, unspecified; R94.31 Abnormal electrocardiogram [ECG] [EKG]
CPT/HCPCS: 36415; 71045; 80053; 83880; 85025; 85610; 85730; 87636; 93005; 94640; 96374; 99284; J1100

== ENCOUNTER 2022-09-22 13:11 | Emergency (ER) | payer MEDICARE, SELFPAY ==
--- NOTE | ~2022-09-22 | XR_ITS ---
EXAMINATION: XR chest 2V Exam Date/Time: 09/22/2022 15:16 SCREENING UNIT REGISTERED NURSE HISTORY: shortness of breath, CONGESTION, ABCESS TOOTH Comparison: 08/12/2022, 04/20/2021. RESULT: Lines, tubes, and devices: Left chest AICD with intact leads. Lungs and pleura: Clear. Emphysematous change. Calcified posterior granuloma. Cardiomediastinal silhouette: Stable. Calcified hilar nodes. Other: No acute osseous or upper abdominal finding. IMPRESSION: No acute cardiopulmonary process. Reviewed, dictated and finalized at location K. ENING UNIT REGISTERED NURSE
--- NOTE | ~2022-09-22 | CT_ITS ---
EXAMINATION: CT diagnostic chest wo con DATE: 09/22/2022 17:41 INDICATION: Pneumonia, congestive heart failure TECHNIQUE: Computed tomography (CT) of the chest was performed with 100 mL Omnipaque-350 intravenous contrast. Automated exposure control and iterative reconstruction technique were employed. The dose-l ength product was 189.06 mGy-cm. COMPARISON: X-ray chest, same date; CT abdomen pelvis 02/13/2022. FINDINGS: CHEST: Thoracic aorta: Mild ectasia and arch calcification.. Lung parenchyma and airways: Dependent groundglass opacities, likely atelectasis. Severe emphysematou s change. Mild scattered tree-in-bud opacities. Calcified right lower lobe granuloma. Airways are pat ent. Thoracic inlet, axillae and chest wall: Bilateral symmetric gynecomastia. Mediastinum: Mediastinal and hilar lymphadenopathy. Moderate hiatal hernia. Heart and pericardium: No pericardial effusion. Mild cardiomegaly. Aortic and mitral calcification. P acer/AICD leads. Coronary artery calcifications: Moderate. Pleura: No effusion or mass. Upper abdomen: No significant finding. Thoracic bones: No acute osseous finding in the chest. IMPRESSION: Pulmonary opacities may represent respiratory bronchiolitis, overlying chronic changes of severe emph ysema. Mediastinal/hilar lymphadenopathy. Reviewed, dictated and finalized at location K. FABRIC MACHINE OPERATOR IMPRESSION: Pulmonary opacities may represent respiratory bronchiolitis, overlying chronic changes of severe emphysema. Mediastinal/hilar lymphadenopathy.
[2022-09-22 13:13] VITALS: BP 115/74; PULSE 80; RESP 18; TEMP 36.9; O2SAT 96
--- NOTE | 2022-09-22 13:17 | ECG_ITS ---
Measurements Intervals [place] Rate: 74 P: 76 OK: 207 QRS: -40 QRSD: 113 T: 0 QT: 437 QTc: 487 Interpretive Statements SINUS RHYTHM WITH FIRST-DEGREE AV BLOCK BASELINE ARTIFACT LEFT AXIS DEVIATION MODERATE INTRAVENTRICULAR CONDUCTION DELAY PROLONGED QT INTERVAL POOR R-WAVE PROGRESSION ABNORMAL ECG COMPARED TO ECG 08/12/2022 14:11:59 INTRAVENTRICULAR CONDUCTION DELAY NOW PRESENT PROLONGED QT INTERVAL NOW PRESENT Electronically Signed On 09-22-2022 16:58:49 PLANT PROTECTION OFFICER by Korey Torres M.D.
[2022-09-22 13:36] LABS: Basophils Absolute Auto 0.1 K/mm3 (0.0-0.1); Eosinophils Absolute Auto 0.4 K/mm3 (0-0.3); Eosinophils Percent Auto 3.9 % (0-4.4); Hemoglobin 13.1 g/dL (14.0-18.0); Immature Granulocyte Absolute 0.02 K/mm3 (0.00-0.031); Immature Granulocyte Percent A 0.2 % (0-0.5); Lymphocytes Absolute Auto 1.34 K/mm3 (0.9-3.2); Lymphocytes Percent Auto 14.7 % (18.3-44.2); Mean Corpuscular Volume 93.8 fl (80-100); Mean Platelet Volume 9.1 fl (7.4-10.4); Monocytes Absolute Auto 0.7 K/mm3 (0.1-0.6); Monocytes Percent Auto 7.3 % (2.6-8.5); Neutrophils Absolute Auto 6.7 K/mm3 (1.3-6.7); Neutrophils Percent Auto 72.9 % (45.5-73.1); Platelet Count Result 262 k/mm3 (150-375); Red Blood Count 4.37 M/mm3 (4.6-6.20); Red Cell Distribution Width 14.2 % (11.5-14.5); White Blood Count 9.1 K/mm3 (4.5-10.0)
[2022-09-22 13:47] LABS: Alanine Aminotransferase 13 U/L (6-50); Albumin Level 4.2 g/dL (3.5-5.1); Alkaline Phosphatase 51 U/L (38-126); Anion Gap 6 mmol/L (8-16); Aspartate Amino Transferase 20 U/L (17-59); Bilirubin,Total 2.3 mg/dL (0.2-1.3); Blood Urea Nitrogen 20 mg/dL (9-20); Calcium 8.8 mg/dL (8.4-10.2); Carbon Dioxide 28 mmol/L (22-30); Chloride 106 mmol/L (98-107); Estimated CRCL calculation 46 ml/min; Estimated Glomerular Filt Rate 59; Glucose 90 mg/dL (65-110); Sodium 140 mmol/L (137-145)
--- NOTE | 2022-09-22 16:23 | ED.SOB ---
HPI - SOB/Dyspnea General Chief Complaint: Shortness of Breath/Dyspnea Stated Complaint: SOB Time Seen by Provider: 09/22/22 16:22 Source: patient Mode of arrival: ambulatory Limitations: no limitations History of Present Illness HPI Narrative: Patient came to the emergency room by private car complaining of right upper gum dental infection started last night, shortness of breath on exertion started 1 week ago with gurgling sound in the chest. Patient stopped his water pills few days ago because somebody told him is not good for her kidneys. He denies any fever, chills, nausea, vomiting, coughing or chest pain. History of of atrial fibrillation, hypertension, coronary stents, COPD, congestive heart failure. Patient had COVID infection 1 month ago, fully vaccinated for COVID. Related Data Home Medications Medication Instructions Recorded Confirmed warfarin 2 mg tablet 2 mg PO DAILY 01/09/21 02/12/22 pantoprazole 40 mg tablet,delayed 40 mg PO QAM 02/12/22 02/12/22 release amiodarone 100 mg tablet mg 08/12/22 amiodarone 200 mg tablet mg 08/12/22 ramipril 5 mg capsule mg 08/12/22 08/12/22 Allergies Allergy/AdvReac Type Severity Reaction Status Date / Time codeine AdvReac Mild HALLUCINATI Verified 08/12/22 14:12 ONS Review of Systems Review of Systems: All systems reviewed & are unremarkable except as noted in HPI and below PMFSH Past Medical History Medical History Afib CHF (congestive heart failure) COPD (chronic obstructive pulmonary disease) HLD (hyperlipidemia) HTN (hypertension) Pacemaker Family History Family History Father Heart disease Other Cerebrovascular accident Mother Kidney failure Heart disease Acute myocardial infarction Social History Social History Social History: Patient lives on his own. He denies having any children or pets. Jorge his brother is his surrogate. and he wishes to be a full code. Smoking packs per day: 0.5 Smoking cigarettes per day: 10.0 Years smoked: 18 Smoking pack-years: 9.00 Smoking status: Former smoker Alcohol intake: current Drinks per week: 2 Substance use: never Substance use type: does not use Living arrangements: alone Gender identity (if verbalized by the patient): Male Sexual Orientation (if Verbalized by the Patient): Straight or Heterosexual Spiritual care concerns: No Agree to blood products: Yes Exam Narrative: General appearance: Well-developed, well-nourished Skin: Normal color. No leg edema Head: Normocephalic, nontraumatic Eyes: Clear conjunctiva ENT: Oropharynx normal, ears normal, nose normal Neck: Supple, nontender Chest and respiratory: Airway patent, diminution of air entry bilaterally, dry rales at the right base. Heart: Irregular irregularity Abdomen: Soft, nontender, no organomegaly, quiet bowel sounds Vascular: Normal peripheral pulses, normal capillary refill. Musculoskeletal: Normal range of motion, nontender back Neurologic: Alert and oriented ?3, FIELD EDUCATION DIRECTOR is normal as tested, no gross motor deficit Course Vital Signs Vital signs: Vital Signs Temperature 36.9 C 09/22/22 13:13 Pulse Rate 80 09/22/22 13:13 Respiratory Rate 18 09/22/22 13:13 Blood Pressure 115/74 09/22/22 13:13 Pulse Oximetry 96 09/22/22 13:13 Oxygen Delivery Room Air 09/22/22 13:13 Temperature 36.9 C 09/22/22 13:13 Pulse Rate 78 09/22/22 16:31 Respiratory Rate 20 09/22/22 16:31 Blood Pressure 146/93 H 09/22/22 16:31 Pulse Oximetry 98 09/22/22 16
[2022-09-22 16:29] VITALS: O2SAT 98
[2022-09-22 16:31] VITALS: BP 146/93; PULSE 78; RESP 20; O2SAT 98
[2022-09-22 16:55] LABS: INR 1.4; Prothrombin Time 16.5 Seconds (11.1-14.7)
[2022-09-22 17:13] LABS: Alveolar/Arterial O2 Gradient 41.3 mmHg; Base Excess ABG -1.3 mEq/l (+/-2.0); Device ROOM AIR; Fractional Inspired Oxygen 21 %; HCO3 ABG 22.3 mEq/l (22.0-26.0); Modified Allen's Test Pass; Oxygen Content ABG 17.1 %vol (16.0-22.0); Oxygen Saturation ABG 94.2 % (95.0-100.0); Oxyhemoglobin 91.6 % THb (90.0-100.0); PCO2 ABG 34.2 mmHg (35.0-45.0); PO2 ABG 67.5 mmHg (80.0-100.0); PO2 FiO2 Ratio Arterial Blood 3.21 %; Site Drawn LEFT RADIAL; Total Hemoglobin 13.3 g/dL (12.0-18.0); pH ABG 7.433 (7.350-7.450)
[2022-09-22 17:15] LABS: NT Pro B Type Natriuretic Pept 7370 pg/mL (19.9-100); Troponin I < 0.012 ng/mL (0.000-0.034)
[2022-09-22 19:16] VITALS: BP 139/90; PULSE 75; RESP 18; O2SAT 97
== END 2022-09-22 19:18 | disposition home or self-care (01) ==
PROVIDERS: Emergency Provider Emergency Medicine
DX: J44.1 Chronic obstructive pulmonary disease with (acute) exacerbation (principal); R06.00 Dyspnea, unspecified; U09.9 Post COVID-19 condition, unspecified; I48.91 Unspecified atrial fibrillation; I50.9 Heart failure, unspecified; I11.0 Hypertensive heart disease with heart failure; E78.5 Hyperlipidemia, unspecified; Z95.5 Presence of coronary angioplasty implant and graft; Z95.0 Presence of cardiac pacemaker; Z87.891 Personal history of nicotine dependence; I44.0 Atrioventricular block, first degree; I45.9 Conduction disorder, unspecified; R94.31 Abnormal electrocardiogram [ECG] [EKG]
CPT/HCPCS: 36415; 36600; 71046; 71250; 80053; 82805; 83880; 84484; 85025; 85610; 93005; 99284

== ENCOUNTER → 2023-09-18 14:42 | Outpatient (CLI) | payer MEDICARE, SELFPAY ==
--- NOTE | ~2023-09-18 | XR_ITS ---
XR lumbar spine min 4V DATE: 09/18/2023 15:10 INDICATION: Lumbago, right sciatica TECHNIQUE: AP, lateral, coned lateral lumbosacral views and bilateral oblique views COMPARISON: None FINDINGS: There is osteopenia. Normal alignment of the lumbar spine. No fracture or bone destruction, spondylolysis or spondylolisth esis. Lumbar and lumbosacral interspaces are relatively preserved. There is degenerative spurring of the cam mbar spine, most pronounced at L3-4. The sacroiliac joints are intact. Bilateral hip osteoarthritis. Cardiac pacemaker lead is noted overlying right ventricle. IMPRESSION: Osteopenia Degenerative spurring Reviewed, dictated and finalized at location B. SHOP SUPERVISOR
== END ==
PROVIDERS: PCP Family Medicine; Visit Provider Family Medicine
DX: M54.41 Lumbago with sciatica, right side (principal); M85.80 Other specified disorders of bone density and structure, unspecified site; M46.06 Spinal enthesopathy, lumbar region
CPT/HCPCS: 72110

== ENCOUNTER 2023-12-13 11:10 | Outpatient (CLI) | payer MEDICARE, SELFPAY ==
[2023-12-13 11:43] LABS: Basophils Absolute Auto 0.1 K/mm3 (0.0-0.1); Basophils Percent Auto 1.1 % (0.2-1.2); Eosinophils Absolute Auto 0.2 K/mm3 (0-0.3); Eosinophils Percent Auto 3.1 % (0-4.4); Hematocrit 46.7 % (42.0-52.0); Hemoglobin 15.2 g/dL (14.0-18.0); Immature Granulocyte Absolute 0.01 K/mm3 (0.00-0.031); Immature Granulocyte Percent A 0.2 % (0-0.5); Lymphocytes Absolute Auto 1.52 K/mm3 (0.9-3.2); Lymphocytes Percent Auto 23.3 % (18.3-44.2); Mean Corpuscular HGB Conc 32.5 g/dl (32-36); Mean Corpuscular Hemoglobin 29.7 pg (26-34); Mean Corpuscular Volume 91.2 fl (80-100); Mean Platelet Volume 9.5 fl (7.4-10.4); Monocytes Absolute Auto 0.5 K/mm3 (0.1-0.6); Monocytes Percent Auto 7.1 % (2.6-8.5); Neutrophils Absolute Auto 4.3 K/mm3 (1.3-6.7); Neutrophils Percent Auto 65.2 % (45.5-73.1); Platelet Count Result 225 k/mm3 (150-375); Red Blood Count 5.12 M/mm3 (4.6-6.20); Red Cell Distribution Width 13.2 % (11.5-14.5); White Blood Count 6.5 K/mm3 (4.5-10.0)
[2023-12-13 11:48] LABS: Iron 116 ug/dL (49-181)
[2023-12-13 11:52] LABS: Appearance Urine Clear (Clear); Bilirubin Urine Negative (Negative); Blood Urine Negative (Negative); Color Urine Yellow (Yellow); Glucose Urine UA Negative (Negative); Ketones Urine Negative (Negative); Leukocyte Esterase Ur Negative LEU/UL (Negative); Nitrate Urine Negative (Negative); Protein Urine Negative (Negative); Urobilinogen Urine 0.2 mg/dL (<2.0); pH Urine 5.5 (5.0-9.0)
[2023-12-13 11:53] LABS: Alanine Aminotransferase 11 U/L (6-50); Albumin Level 4.7 g/dL (3.5-5.1); Alkaline Phosphatase 37 U/L (38-126); Anion Gap 6 mmol/L (4-12); Aspartate Amino Transferase 21 U/L (17-59); Blood Urea Nitrogen 28 mg/dL (9-20); Calcium 9.8 mg/dL (8.4-10.2); Carbon Dioxide 30 mmol/L (22-30); Chloride 102 mmol/L (98-107); Cholesterol 243 mg/dL (0-200); Estimated Glomerular Filt Rate 49; Glucose 91 mg/dL (65-110); HDL Direct 52 mg/dL; Potassium 5.2 mmol/L (3.4-5.0); Sodium 138 mmol/L (137-145); Triglycerides 123 mg/dL (<150)
[2023-12-13 11:57] LABS: Percent Iron Saturation 32 % (20-50)
[2023-12-13 12:03] LABS: Add Urine Microscopic? NO
[2023-12-13 12:04] LABS: LDL Cholesterol Direct 139 mg/dL
[2023-12-13 12:23] LABS: Prostate Specific Antigen 2.1 ng/mL (< OR = 4.0)
== END 2023-12-13 11:11 | disposition home or self-care (01) ==
PROVIDERS: PCP Family Medicine; Visit Provider Family Medicine
DX: Z12.5 Encounter for screening for malignant neoplasm of prostate (principal); E78.2 Mixed hyperlipidemia; D50.9 Iron deficiency anemia, unspecified; I10 Essential (primary) hypertension; G89.29 Other chronic pain; M54.41 Lumbago with sciatica, right side
CPT/HCPCS: 36415; 80048; 80061; 80076; 81003; 82728; 83540; 83550; 84153; 84443; 85025; G0103

== ENCOUNTER 2024-04-27 14:06 | Outpatient (CLI) | payer MEDICARE, SELFPAY ==
[2024-04-27 14:49] LABS: Anion Gap 9 mmol/L (4-12); Bilirubin,Total 2.4 mg/dL (0.2-1.3); Blood Urea Nitrogen 26 mg/dL (9-20); Calcium 8.9 mg/dL (8.4-10.2); Carbon Dioxide 28 mmol/L (22-30); Chloride 97 mmol/L (98-107); Estimated Glomerular Filt Rate 54; Glucose 90 mg/dL (65-110); Potassium 4.3 mmol/L (3.4-5.0); Sodium 134 mmol/L (137-145)
[2024-04-27 14:50] LABS: Alanine Aminotransferase 10 U/L (6-50); Albumin Level 4.5 g/dL (3.5-5.1); Alkaline Phosphatase 41 U/L (38-126); Aspartate Amino Transferase 21 U/L (17-59); Cholesterol 226 mg/dL (0-200); HDL Direct 42 mg/dL; Triglycerides 116 mg/dL (<150)
[2024-04-27 15:06] LABS: LDL Cholesterol Direct 145 mg/dL
== END 2024-04-27 14:07 | disposition home or self-care (01) ==
PROVIDERS: PCP Family Medicine; Visit Provider Family Medicine
DX: E78.2 Mixed hyperlipidemia (principal); N18.31 Chronic kidney disease, stage 3a
CPT/HCPCS: 36415; 80048; 80061; 80076

== ENCOUNTER 2024-04-29 12:05 | Inpatient (IN) | payer MEDICARE, SELFPAY ==
[2024-04-29] VITALS (13 sets, daily range): BP systolic 120–136; BP diastolic 72–89; PULSE 72–91; RESP 18–23; TEMP 36.4–36.5; O2SAT 95–100; BMI 23.2
--- NOTE | ~2024-04-29 | XR_ITS ---
EXAMINATION: XR chest 1V portable DATE: 04/29/2024 13:29 INDICATION: Cough TECHNIQUE: frontal view of the chest was obtained. COMPARISON: Chest radiograph and CT dated 09/22/2022 FINDINGS: There is increased lucency with some architectural distortion in the upper lung zones consistent with moderate emphysema better appreciated on the prior CT. There is mild increased interstitial pattern at the lung bases consistent with mild pulmonary edema. Large calcified right lower lobe nodule proje cting over the right hilum consistent with old granulomatous disease. No other airspace opacities, pl eural effusion or pneumothorax. Heart and mediastinal silhouette is within normal limits accounting f or AP technique. Dual lead pacemaker/AICD seen with leads projecting over the expected locations of the right atrium and right ventricle. IMPRESSION: 1. Emphysema with mild pulmonary edema at the lung bases. Reviewed, dictated and finalized at location A.
[2024-04-29] MEDS: ALBUTEROL SULFATE NEB 2.5 MG/3 ML INH 10 MG INHALATION (12:52)
[2024-04-29] MEDS: IPRATROPIUM BR 0.02% INH SOLN 0.5 MG/2.5 ML VIAL 1 MG INHALATION (12:53)
[2024-04-29 14:41] LABS: Basophils Absolute Auto 0.1 K/mm3 (0.0-0.1); Basophils Percent Auto 0.7 % (0.2-1.2); Eosinophils Absolute Auto 0.7 K/mm3 (0-0.3); Eosinophils Percent Auto 8.7 % (0-4.4); Hemoglobin 15.1 g/dL (14.0-18.0); Immature Granulocyte Absolute 0.01 K/mm3 (0.00-0.031); Immature Granulocyte Percent A 0.1 % (0-0.5); Lymphocytes Absolute Auto 1.48 K/mm3 (0.9-3.2); Lymphocytes Percent Auto 19.4 % (18.3-44.2); Mean Corpuscular HGB Conc 32.1 g/dl (32-36); Mean Corpuscular Hemoglobin 29.9 pg (26-34); Mean Corpuscular Volume 93.1 fl (80-100); Mean Platelet Volume 9.1 fl (7.4-10.4); Monocytes Absolute Auto 0.5 K/mm3 (0.1-0.6); Monocytes Percent Auto 6.2 % (2.6-8.5); Neutrophils Absolute Auto 4.9 K/mm3 (1.3-6.7); Neutrophils Percent Auto 64.9 % (45.5-73.1); Platelet Count Result 232 k/mm3 (150-375); Red Blood Count 5.05 M/mm3 (4.6-6.20); Red Cell Distribution Width 13.2 % (11.5-14.5); White Blood Count 7.6 K/mm3 (4.5-10.0)
[2024-04-29 14:50] LABS: INR 1.1; Prothrombin Time 14.5 Seconds (11.1-14.7)
[2024-04-29 14:51] LABS: Partial Thromboplastin Time 28.4 Seconds (22.3-36.8)
[2024-04-29 15:00] LABS: Alanine Aminotransferase 10 U/L (6-50); Albumin Level 4.5 g/dL (3.5-5.1); Alkaline Phosphatase 43 U/L (38-126); Anion Gap 9 mmol/L (4-12); Aspartate Amino Transferase 21 U/L (17-59); Bilirubin,Total 1.9 mg/dL (0.2-1.3); Blood Urea Nitrogen 22 mg/dL (9-20); Calcium 9.1 mg/dL (8.4-10.2); Carbon Dioxide 31 mmol/L (22-30); Chloride 99 mmol/L (98-107); Estimated CRCL calculation 50 ml/min; Estimated Glomerular Filt Rate > 60; Glucose 92 mg/dL (65-110); Potassium 4.8 mmol/L (3.4-5.0); Sodium 139 mmol/L (137-145)
[2024-04-29 15:08] LABS: NT Pro B Type Natriuretic Pept 3210 pg/mL (19.9-100)
--- NOTE | 2024-04-29 15:16 | ED.GENADULT ---
HPI - General Adult General Chief complaint: Upper Respiratory Infection Stated complaint: productive cough, runny nose Time Seen by Provider: 04/29/24 12:12 History of Present Illness HPI narrative: Patient is a 73-year-old male who presents ER with shortness of breath. Ongoing over last 2 weeks. Started with runny nose. He has had persistent productive cough of clear sputum. No fevers or chills or sweats. Endorses orthopnea. No chest pain or chest pressure. His camp cook is with [facility] vascular. No alleviating factors. Related Data Home Medications Medication Instructions Recorded Confirmed pantoprazole 40 mg tablet,delayed 40 mg PO QAM 02/12/22 04/29/24 release apixaban 2.5 mg tablet (Eliquis) 2.5 mg PO BID 09/18/23 04/29/24 furosemide 40 mg tablet 40 mg PO .every other day 09/18/23 04/29/24 Allergies Allergy/AdvReac Type Severity Reaction Status Date / Time codeine AdvReac Mild HALLUCINATI Verified 04/29/24 12:07 ONS Review of Systems Review of Systems: All systems reviewed & are unremarkable except as noted in HPI and below Constitutional: Constitutional: Reports no additional constitutional complaints ENT: Reports system reviewed and no additional complaints, except as documented Cardiovascular: Cardiovascular: Reports no additional cardiovascular complaints Respiratory: Respiratory: Reports no additional respiratory complaints Gastrointestinal: Gastrointestinal: Reports no additional gastrointestinal complaints [facility] Past Medical History Medical History (Updated 04/29/24 @ 20:48 by Antony Morales MD) Acute kidney injury Acute on chronic heart failure with reduced ejection fraction and diastolic dysfunction Afib Atrial fibrillation with RVR BMI 24.0-24.9, adult BPH without obstruction/lower urinary tract symptoms PSA 2.1 on 12/13/2023. BPPV (benign paroxysmal positional vertigo) CAD (coronary artery disease) acute CT with stents. CHF (congestive heart failure) Chronic anxiety Chronic atrial fibrillation Chronic kidney disease (CKD) stage G3a/A2, moderately decreased glomerular filtration rate (GFR) between 45-59 mL/min/1.73 square meter and albuminuria creatinine ratio between 30-299 mg/g (~12/13/23) BUN 28, creatinine 1.40 with GFR 49 on 12/13/2023. BUN 26, creatinine 1.3 with GFR 54 on 04/27/2024. Chronic low back pain with right-sided sciatica x-ray of the lumbar spine on 09/18/2023 reveals mild degenerative changes of the lumbar spine COPD (chronic obstructive pulmonary disease) COVID-19 Current use of assisted anticoagulation Dizziness Elevated LFTs Elevated troponin Encounter for prostate cancer screening PSA 2.1 on 12/13/2023. GERD (gastroesophageal reflux disease) Heart disease History of malignant melanoma right forearm with wide excision 2020 HLD (hyperlipidemia) HTN (hypertension) Iron deficiency anemia Iron 116 with 32% saturation and ferritin 71.5 with hemoglobin 15.2 on 12/13/2023. Ischemic cardiomyopathy with implantable cardioverter-defibrillator (ICD) Recent ejection fraction of 15%. Echo 02/21/2024 with severe global left ventricular hypokinesis with ejection fraction of 25% with moderate mitral valve regurgitation. Mixed hyperlipidemia Cholesterol 243, triglycerides 123, HDL 52, LDL 139 on 12/13/2023. Cholesterol 226, triglycerides 116, HDL 42, LDL 145 on 04/27/2024. Pacemaker Seasonal allergic rhinitis Skin cancer Transaminitis Family History Family History Father Heart disease Other Cerebrovascular accident Mother Kidney failure Heart disease Acute myocardial infarction Social History Social History Social History: Patient lives on his own. He denies having any children or pets. Jorge his brother is his surrogate. and he wishes to be a full code. Smoking packs per day: 0.5 Smoking cigarettes per day: 10.0
[2024-04-29] MEDS: FUROSEMIDE INJ 40 MG/4 ML VIAL IV PUSH ×2 (15:28→20:31)
--- NOTE | 2024-04-29 16:57 | ADMGEN ---
This patient, Karin Jackson, was admitted to 3 [facility] Surg Room 310-01. Patient/family oriented to hospital policies and general routines including ID bracelet, bed and alarms, visiting hours, pain management, procedures, bathroom and other care routines, personal items, smoking policy, room service/diet, and visiting hours. Information on how to activate the Rapid Response Team has been discussed. Patient/Family are encouraged to report perceived risks to care and to ask questions if they do not understand what they are told or what they should do.
--- NOTE | 2024-04-29 17:38 | PM.IMHP ---
H&P: HPI History of Present Illness Date/Time: 04/29/24 17:38 Chief Complaint: Cough, SOB Narrative: 73 y/o M presents here with cough, rhinorrhea, and shortness of breath with PMH of CHF, CKD, atrial fibrillation, COPD, GERD, HLD, HTN, pacemaker. The patient presents here from home for further evaluation of cough, runny nose, and shortness of breath. The patient reports he has had a productive cough and rhinorrhea for the past 2 weeks. Patient describes production from cough as white foam. Initially sought care with his PCP on 04/09/2024, no reviewed which showed the visit was an annual wellness visit. No reports of shortness of breath, however was noted to be over using his rescue inhaler. Did report chronic rhinorrhea for which he was prescribed Atrovent intranasally, already on azelastine spray. Shortness of breath has been ongoing for the past week and occurs with exertion (ambulation long distances or stairs). Denies chest pain, fever, chills, body aches, dizziness. Endorses intermittent palpitations. Initial VS at presentation: 97.6? F, HR 91, RR 18, 132/73, and 98% on RA. ED workup showed: No leukocytosis, no anemia, no significant electrolyte derangements, creatinine 1.1 and GFR >60, BNP 3210. CXR showed emphysema with mild pulmonary edema at the lung bases. Review of Systems Review of Systems: All systems reviewed & are unremarkable except as noted in HPI and below [facility] Past Medical History Medical History (Updated 04/29/24 @ 17:49 by Zuri Handley, ANKITA) Acute kidney injury Acute on chronic heart failure with reduced ejection fraction and diastolic dysfunction Afib Atrial fibrillation with RVR BMI 24.0-24.9, adult BPH without obstruction/lower urinary tract symptoms PSA 2.1 on 12/13/2023. BPPV (benign paroxysmal positional vertigo) CAD (coronary artery disease) acute [place] with stents. CHF (congestive heart failure) Chronic anxiety Chronic atrial fibrillation Chronic kidney disease (CKD) stage G3a/A2, moderately decreased glomerular filtration rate (GFR) between 45-59 mL/min/1.73 square meter and albuminuria creatinine ratio between 30-299 mg/g (~12/13/23) BUN 28, creatinine 1.40 with GFR 49 on 12/13/2023. BUN 26, creatinine 1.3 with GFR 54 on 04/27/2024. Chronic low back pain with right-sided sciatica x-ray of the lumbar spine on 09/18/2023 reveals mild degenerative changes of the lumbar spine COPD (chronic obstructive pulmonary disease) COVID-19 Current use of usp anticoagulation Dizziness Elevated LFTs Elevated troponin Encounter for prostate cancer screening PSA 2.1 on 12/13/2023. GERD (gastroesophageal reflux disease) Heart disease History of malignant melanoma right forearm with wide excision 2020 HLD (hyperlipidemia) HTN (hypertension) Iron deficiency anemia Iron 116 with 32% saturation and ferritin 71.5 with hemoglobin 15.2 on 12/13/2023. Ischemic cardiomyopathy with implantable cardioverter-defibrillator (ICD) Recent ejection fraction of 15%. Echo 02/21/2024 with severe global left ventricular hypokinesis with ejection fraction of 25% with moderate mitral valve regurgitation. Mixed hyperlipidemia Cholesterol 243, triglycerides 123, HDL 52, LDL 139 on 12/13/2023. Cholesterol 226, triglycerides 116, HDL 42, LDL 145 on 04/27/2024. Pacemaker Seasonal allergic rhinitis Skin cancer Transaminitis Family History Family History Father Heart disease Other Cerebrovascular accident Mother Kidney failure Heart disease Acute myocardial infarction Social History Social History Social History: Patient lives on his own. He denies having any children or pets. Jorge his brother is his surrogate. and he wishes to be a full code. Smoking packs per day: 0.5 Smoking cigarettes per day: 10.0 Years smoked: 18 Smoking pack-years: 9.00 Smoking status: Former smoker Alcohol
[2024-04-29] MEDS: carvediloL 3.125 MG TABLET PO (20:31)
[2024-04-29] MEDS: SACUBITRIL/VALSARTAN 24-26 MG TABLET 1 TAB PO (20:32)
[2024-04-29] MEDS: APIXABAN 2.5 MG TABLET PO (20:32)
[2024-04-29] MEDS: TAMSULOSIN HCL 0.4 MG CAPSULE PO (20:32)
[2024-04-29] MEDS: IPRATROPIUM NASAL SPRAY 0.06% 15 ML BOTTLE 2 SPRAY NASAL (21:27)
[2024-04-30 05:53] VITALS: BP 100/72; PULSE 95; RESP 20; TEMP 36.5; O2SAT 97
--- NOTE | 2024-04-30 06:00 | ECHO_ITS ---
Patient Info Name: Karin Jackson Age: 73 years : 1950 Gender: Male Ht: 68 in Wt: 152 lbs BSA: 1.82 m2 HR: 95 bpm BP: 100 / 72 mmHg Technical Quality: Poor, Other Exam Date: 04/30/2024 9:37 AM Exam Location: Echo Lab Patient Status: Outpatient Admit Date: 04/29/2024 Staff Ordering Physician: Antony Morales MD Data Specialist: Brien Lugo RDCS Attending Provider: Ritesh Patel MD Referring Physician: Andrew CAMERON; Exam Type: CA echo doppler color flow Study Info Indications I50.20 - Unspecified systolic (congestive) heart failure Complete two-dimensional, color flow and Doppler transthoracic echocardiogram is performed. Reason for Poor Study: poor patient cooperation Summary 1. Severely reduced LV systolic function. Mildly dilated LV size. 2. Reduced RV systolic function. 3. No significant valvular pathology was found on the study. Left Ventricle Left ventricular size is mildly dilated. Left ventricular wall thickness is normal. Left ventricular systolic function is severely reduced. LVEF is approximately 20%. There is grade 2 diastolic dysfunction. Right Ventricle The right ventricle appears to be normal size with reduced systolic function. There appears to be a pacemaker lead or catheter in the right ventricle. Left Atria The left atrium is normal size. Right Atria The right atrium is normal size. Atrial Septum The atrial septum was not well visualized. Aortic Valve No aortic regurgitation. Pulmonic Valve The pulmonic valve is not well visualized. Pulmonic valve is not well visualized. There does not appear to be any regurgitation. Mitral Valve Mitral valve leaflets are thin and pliable. Mild mitral regurgitation. Tricuspid Valve The tricuspid valve is not well visualized. There is insufficient tricuspid regurgitation jet to estimate the RVSP. Inferior Vena Cava Inferior vena cava is not well visualized. Aorta The aortic root size at the sinus of Valsalva is normal. Left Ventricular Outflow Tract Name Value Normal LVOT 2D LVOT Diameter 2.0 cm LVOT Doppler LVOT Peak Gradient 1 mmHg LVOT Mean Gradient 0 mmHg LVOT VTI 13 cm LVOT VTI/AV VTI Ratio 0.9 LVOT Stroke Volume 40 ml LVOT CO 1.7 l/min LVOT CI 0.9 l/min/m2 Pulmonic Valve Name Value Normal PV Doppler PV Peak Gradient 1 mmHg Mitral Valve Name Value Normal MV Doppler MV Decel [place] 242 cm/s2 MV PHT 62 ms
[2024-04-30 07:30] LABS: Basophils Absolute Auto 0.1 K/mm3 (0.0-0.1); Basophils Percent Auto 0.8 % (0.2-1.2); Eosinophils Absolute Auto 0.6 K/mm3 (0-0.3); Eosinophils Percent Auto 6.3 % (0-4.4); Hemoglobin 15.2 g/dL (14.0-18.0); Immature Granulocyte Absolute 0.03 K/mm3 (0.00-0.031); Immature Granulocyte Percent A 0.3 % (0-0.5); Lymphocytes Absolute Auto 1.32 K/mm3 (0.9-3.2); Lymphocytes Percent Auto 14.7 % (18.3-44.2); Mean Corpuscular HGB Conc 32.3 g/dl (32-36); Mean Corpuscular Hemoglobin 29.8 pg (26-34); Mean Corpuscular Volume 92.2 fl (80-100); Mean Platelet Volume 9.4 fl (7.4-10.4); Monocytes Absolute Auto 0.6 K/mm3 (0.1-0.6); Monocytes Percent Auto 6.7 % (2.6-8.5); Neutrophils Absolute Auto 6.4 K/mm3 (1.3-6.7); Neutrophils Percent Auto 71.2 % (45.5-73.1); Platelet Count Result 277 k/mm3 (150-375); Red Cell Distribution Width 13.1 % (11.5-14.5)
[2024-04-30 07:38] LABS: Alanine Aminotransferase 10 U/L (6-50); Albumin Level 4.4 g/dL (3.5-5.1); Alkaline Phosphatase 42 U/L (38-126); Anion Gap 10 mmol/L (4-12); Aspartate Amino Transferase 21 U/L (17-59); Bilirubin,Total 1.8 mg/dL (0.2-1.3); Blood Urea Nitrogen 29 mg/dL (9-20); Calcium 9.4 mg/dL (8.4-10.2); Carbon Dioxide 30 mmol/L (22-30); Chloride 95 mmol/L (98-107); Estimated CRCL calculation 32 ml/min; Estimated Glomerular Filt Rate 39; Glucose 101 mg/dL (65-110); Potassium 5.1 mmol/L (3.4-5.0); Sodium 135 mmol/L (137-145)
[2024-04-30 08:00] VITALS: O2SAT 96
[2024-04-30] MEDS: FLUTICASONE/UMECLIDIN/VILANTER 100-62.5-25 MCG ELLIPTA 1 PUFF INHALATION (08:02)
[2024-04-30 08:04] VITALS: O2SAT 96
[2024-04-30] MEDS: FUROSEMIDE INJ 40 MG/4 ML VIAL IV PUSH (08:36)
[2024-04-30] MEDS: AZELASTINE HCL NASAL 0.1% 137 MCG/SPR 30 ML BTL 1 SPRAY NASAL ×2 (08:36→20:26)
[2024-04-30 08:37] VITALS: PULSE 101
[2024-04-30] MEDS: carvediloL 3.125 MG TABLET PO ×2 (08:37→20:25)
[2024-04-30] MEDS: IPRATROPIUM NASAL SPRAY 0.06% 15 ML BOTTLE 2 SPRAY NASAL ×2 (08:37→20:26)
[2024-04-30] MEDS: SACUBITRIL/VALSARTAN 24-26 MG TABLET 1 TAB PO ×2 (08:37→20:25)
[2024-04-30] MEDS: PANTOPRAZOLE 40 MG TABLET PO (08:38)
[2024-04-30] MEDS: APIXABAN 2.5 MG TABLET PO ×2 (08:38→20:26)
[2024-04-30 09:43] LABS: Magnesium 1.9 mg/dL (1.6-2.3)
[2024-04-30 14:00] VITALS: BP 109/80; PULSE 89; RESP 16; TEMP 36.7; O2SAT 96
--- NOTE | 2024-04-30 14:59 | PM.IMPN ---
Progress Note: A&P Assessment and Plan (1) CHF exacerbation: Qualifiers: Heart failure type: systolic Qualified Code(s): I50.23 - Acute on chronic systolic (congestive) heart failure Code(s): I50.9 - Heart failure, unspecified Status: Acute Assessment and Plan: - BNP 3210 - most recent echo (02/2022): LV systolic function severely reduced, estimated EF 15%. See report for details. - Echo today showed: Summary 1. Severely reduced LV systolic function. Mildly dilated LV size. 2. Reduced RV systolic function. 3. No significant valvular pathology was found on the study. Left Ventricle Left ventricular size is mildly dilated. Left ventricular wall thickness is normal. Left ventricular systolic function is severely reduced. LVEF is approximately 20%. There is grade 2 diastolic dysfunction. Right Ventricle The right ventricle appears to be normal size with reduced systolic function. There appears to be a pacemaker lead or catheter in the right ventricle. - currently home prescription is: Lasix 40 mg p.o. every other day, decrease Lasix dose here from BID to Lasix 40 mg IVP daily - monitor I&Os and daily weights - trend renal function (2) COPD (chronic obstructive pulmonary disease): Qualifiers: COPD type: COPD with acute exacerbation Qualified Code(s): J44.1 - Chronic obstructive pulmonary disease with (acute) exacerbation Code(s): J44.9 - Chronic obstructive pulmonary disease, unspecified Status: Chronic Assessment and Plan: - no wheezing on exam - continue inhalers: Albuterol, DuoNeb, Breztri (3) Chronic kidney disease (CKD) stage G3a/A2, moderately decreased glomerular filtration rate (GFR) between 45-59 mL/min/1.73 square meter and albuminuria creatinine ratio between 30-299 mg/g: Onset Date: ~12/13/23 Code(s): N18.31 - Chronic kidney disease, stage 3a Status: Chronic Assessment and Plan: - creatinine 1.70 and GFR 39 - baseline creatinine: 1.1-1.4 over the last year - trend renal function - trend electrolytes, correct as needed - Decrease Furosemide 40 mg IVP daily (4) HTN (hypertension): Qualifiers: Hypertension type: primary hypertension Qualified Code(s): I10 - Essential (primary) hypertension Code(s): I10 - Essential (primary) hypertension Status: Chronic Assessment and Plan: - chronic, currently 100/72 - continue home medications: Entresto 24-26 mg b.i.d. - monitor (5) Imbalance: Code(s): R26.89 - Other abnormalities of gait and mobility Status: Acute Assessment and Plan: - add PT/OT Plan Diet: Heart healthy GI Prophylaxis: Not currently indicated DVT Prophylaxis: Continue home Eliquis Lines: Peripheral Code Status: Full code Subjective Date/time seen: 04/30/24 14:59 Interval history: Patient denies chest pain, palpitations, shortness of breath, headache, or dizziness. Patient reports feeling weak. Patient reports feeling wobbly when he first gets up but reports that happens at home sometimes until he walks for a little while. Review of Systems Review of Systems: All systems reviewed & are unremarkable except as noted in HPI and below Exam Const: General: comfortable and no acute distress Eyes: Sclera: sclerae normal Resp: Other: diminished in the bases. Cardio: Rate: regular rate Rhythm: regular rhythm GI: GI Palp: Yes Soft to palpation Auscultation: normal bowel sounds Skin: General skin exam: no rashes or lesions noted Neuro: Speech: normal speech Extrem: General: normal to inspection Psych: Mental Status: mental status grossly normal Affect: normal affect Objective Data Vital Signs Vital Signs: Vital Signs - 24 hr 04/29/24 15:29 04/29/24 20:31 04/29/24 20:38 Temperature 97.7 F Pulse Rate 77 72 82 Respiratory Rate 19 18 Blood Pressure 129/89 120/72 Pulse Oximetry 97 96
[2024-04-30] MEDS: TAMSULOSIN HCL 0.4 MG CAPSULE PO (20:25)
[2024-04-30 20:58] VITALS: BP 101/81; PULSE 85; RESP 22; TEMP 36.6; O2SAT 94
[2024-05-01 05:51] VITALS: BP 96/71; PULSE 79; RESP 18; TEMP 36.6; O2SAT 94
[2024-05-01 06:29] LABS: Basophils Absolute Auto 0.1 K/mm3 (0.0-0.1); Basophils Percent Auto 0.7 % (0.2-1.2); Eosinophils Absolute Auto 0.7 K/mm3 (0-0.3); Eosinophils Percent Auto 8.3 % (0-4.4); Hematocrit 43.9 % (42.0-52.0); Hemoglobin 14.4 g/dL (14.0-18.0); Immature Granulocyte Absolute 0.02 K/mm3 (0.00-0.031); Immature Granulocyte Percent A 0.2 % (0-0.5); Lymphocytes Absolute Auto 1.86 K/mm3 (0.9-3.2); Lymphocytes Percent Auto 21.4 % (18.3-44.2); Mean Corpuscular HGB Conc 32.8 g/dl (32-36); Mean Corpuscular Hemoglobin 30.1 pg (26-34); Mean Corpuscular Volume 91.8 fl (80-100); Mean Platelet Volume 9.7 fl (7.4-10.4); Monocytes Absolute Auto 0.6 K/mm3 (0.1-0.6); Monocytes Percent Auto 7.1 % (2.6-8.5); Neutrophils Absolute Auto 5.4 K/mm3 (1.3-6.7); Neutrophils Percent Auto 62.3 % (45.5-73.1); Platelet Count Result 267 k/mm3 (150-375); Red Blood Count 4.78 M/mm3 (4.6-6.20); Red Cell Distribution Width 13.2 % (11.5-14.5); White Blood Count 8.7 K/mm3 (4.5-10.0)
[2024-05-01 06:39] LABS: Alanine Aminotransferase 8 U/L (6-50); Albumin Level 4.1 g/dL (3.5-5.1); Alkaline Phosphatase 36 U/L (38-126); Anion Gap 8 mmol/L (4-12); Aspartate Amino Transferase 18 U/L (17-59); Bilirubin,Total 1.4 mg/dL (0.2-1.3); Blood Urea Nitrogen 47 mg/dL (9-20); Calcium 9.1 mg/dL (8.4-10.2); Carbon Dioxide 30 mmol/L (22-30); Chloride 97 mmol/L (98-107); Estimated CRCL calculation 28 ml/min; Estimated Glomerular Filt Rate 33; Glucose 113 mg/dL (65-110); Potassium 4.1 mmol/L (3.4-5.0); Sodium 135 mmol/L (137-145)
[2024-05-01 07:49] VITALS: BP 90/67; PULSE 82; O2SAT 95
[2024-05-01] MEDS: APIXABAN 2.5 MG TABLET PO ×2 (07:55→20:56)
[2024-05-01] MEDS: IPRATROPIUM NASAL SPRAY 0.06% 15 ML BOTTLE 2 SPRAY NASAL ×2 (07:55→20:57)
[2024-05-01] MEDS: PANTOPRAZOLE 40 MG TABLET PO (07:55)
[2024-05-01] MEDS: AZELASTINE HCL NASAL 0.1% 137 MCG/SPR 30 ML BTL 1 SPRAY NASAL ×2 (07:56→20:57)
[2024-05-01] MEDS: FLUTICASONE/UMECLIDIN/VILANTER 100-62.5-25 MCG ELLIPTA 1 PUFF INHALATION (08:22)
[2024-05-01 08:23] VITALS: O2SAT 96
[2024-05-01 12:38] LABS: Anion Gap 9 mmol/L (4-12); Blood Urea Nitrogen 49 mg/dL (9-20); Calcium 9.5 mg/dL (8.4-10.2); Carbon Dioxide 30 mmol/L (22-30); Chloride 97 mmol/L (98-107); Estimated CRCL calculation 31 ml/min; Estimated Glomerular Filt Rate 37; Glucose 92 mg/dL (65-110); Potassium 4.8 mmol/L (3.4-5.0); Sodium 136 mmol/L (137-145)
[2024-05-01 14:00] VITALS: BP 100/74; PULSE 79; RESP 16; TEMP 36.3; O2SAT 95
--- NOTE | 2024-05-01 14:50 | PM.IMPN ---
Progress Note: A&P Assessment and Plan (1) CHF exacerbation: Qualifiers: Heart failure type: systolic Qualified Code(s): I50.23 - Acute on chronic systolic (congestive) heart failure Code(s): I50.9 - Heart failure, unspecified Status: Acute Assessment and Plan: - BNP 3210 - most recent echo (02/2022): LV systolic function severely reduced, estimated EF 15%. See report for details. - Echo today showed: Summary 1. Severely reduced LV systolic function. Mildly dilated LV size. 2. Reduced RV systolic function. 3. No significant valvular pathology was found on the study. Left Ventricle Left ventricular size is mildly dilated. Left ventricular wall thickness is normal. Left ventricular systolic function is severely reduced. LVEF is approximately 20%. There is grade 2 diastolic dysfunction. Right Ventricle The right ventricle appears to be normal size with reduced systolic function. There appears to be a pacemaker lead or catheter in the right ventricle. - currently home prescription is: Lasix 40 mg p.o. every other day, stopped lasix IV today due to no edema, crackles, and elevated creatinine. - monitor I&Os and daily weights - trend renal function (2) COPD (chronic obstructive pulmonary disease): Qualifiers: COPD type: COPD with acute exacerbation Qualified Code(s): J44.1 - Chronic obstructive pulmonary disease with (acute) exacerbation Code(s): J44.9 - Chronic obstructive pulmonary disease, unspecified Status: Chronic Assessment and Plan: - no wheezing on exam - continue inhalers: Albuterol, DuoNeb, Breztri (3) Chronic kidney disease (CKD) stage G3a/A2, moderately decreased glomerular filtration rate (GFR) between 45-59 mL/min/1.73 square meter and albuminuria creatinine ratio between 30-299 mg/g: Onset Date: ~12/13/23 Code(s): N18.31 - Chronic kidney disease, stage 3a Status: Chronic Assessment and Plan: - 05/01/24 am labs- BUN 47, Creatinine 2.00, GFR 33, repeat labs at 12: BUN 49, Creatinine 1.80, GFR 37. - baseline creatinine: 1.1-1.4 over the last year - trend renal function - trend electrolytes, correct as needed - Stopped Lasix IV, reevaluate tomorrow the need to restart Lasix. (4) HTN (hypertension): Qualifiers: Hypertension type: primary hypertension Qualified Code(s): I10 - Essential (primary) hypertension Code(s): I10 - Essential (primary) hypertension Status: Chronic Assessment and Plan: - chronic, currently 100/74 - continue home medications: Entresto 24-26 mg b.i.d. - monitor (5) Imbalance: Code(s): R26.89 - Other abnormalities of gait and mobility Status: Acute Assessment and Plan: - add PT/OT Plan Diet: Heart healthy GI Prophylaxis: Not currently indicated DVT Prophylaxis: Continue home Eliquis Lines: Peripheral Code Status: Full code Subjective Date/time seen: 05/01/24 14:50 Interval history: Patient denies chest pain, palpitations, shortness of breath, headache, or dizziness. Patient reports eating and drinking well. Last bowel movement on 04/29/24. Review of Systems Review of Systems: All systems reviewed & are unremarkable except as noted in HPI and below Exam Const: General: comfortable and no acute distress Eyes: Sclera: sclerae normal Resp: Other: slightly diminished in the RLL. Cardio: Rate: regular rate Rhythm: regular rhythm GI: GI Palp: Yes Soft to palpation Auscultation: normal bowel sounds : Other: voiding without difficulty Skin: General skin exam: no rashes or lesions noted Neuro: Speech: normal speech Extrem: General: normal to inspection Psych: Mental Status: mental status grossly normal Affect: normal affect Objective Data Vital Signs Vital Signs: Vital Signs - 24 hr 04/30/24 20:58 05/01/24 05:51 05/01/24 07:49 Temperature 97.8 F 97.9 F Puls
--- NOTE | 2024-05-01 14:52 | PCOTNOTE ---
Per PT evaluation. PT is independent. Spoke with patient who is independent in room. Pt. declined need for services. Cancelling order. Re-order if therapy needs change. Nursing aware and in agreement.
[2024-05-01 20:51] VITALS: BP 110/97; PULSE 94; RESP 18; TEMP 36.4; O2SAT 94
[2024-05-01] MEDS: SACUBITRIL/VALSARTAN 24-26 MG TABLET 1 TAB PO (20:56)
[2024-05-01] MEDS: carvediloL 3.125 MG TABLET PO (20:56)
[2024-05-01] MEDS: TAMSULOSIN HCL 0.4 MG CAPSULE PO (20:56)
[2024-05-02] VITALS (7 sets, daily range): BP systolic 91–120; BP diastolic 68–78; PULSE 60–91; RESP 16–20; TEMP 36.4–36.6; O2SAT 91–97
[2024-05-02 06:31] LABS: Basophils Absolute Auto 0.1 K/mm3 (0.0-0.1); Basophils Percent Auto 0.8 % (0.2-1.2); Eosinophils Absolute Auto 0.6 K/mm3 (0-0.3); Eosinophils Percent Auto 7.8 % (0-4.4); Hematocrit 44.2 % (42.0-52.0); Hemoglobin 14.4 g/dL (14.0-18.0); Immature Granulocyte Absolute 0.01 K/mm3 (0.00-0.031); Immature Granulocyte Percent A 0.1 % (0-0.5); Lymphocytes Absolute Auto 1.66 K/mm3 (0.9-3.2); Lymphocytes Percent Auto 22.6 % (18.3-44.2); Mean Corpuscular HGB Conc 32.6 g/dl (32-36); Mean Corpuscular Hemoglobin 29.6 pg (26-34); Mean Corpuscular Volume 90.9 fl (80-100); Mean Platelet Volume 9.6 fl (7.4-10.4); Monocytes Absolute Auto 0.5 K/mm3 (0.1-0.6); Monocytes Percent Auto 6.1 % (2.6-8.5); Neutrophils Absolute Auto 4.6 K/mm3 (1.3-6.7); Neutrophils Percent Auto 62.6 % (45.5-73.1); Platelet Count Result 233 k/mm3 (150-375); Red Blood Count 4.86 M/mm3 (4.6-6.20); Red Cell Distribution Width 13.2 % (11.5-14.5); White Blood Count 7.3 K/mm3 (4.5-10.0)
[2024-05-02 06:45] LABS: Alanine Aminotransferase 9 U/L (6-50); Albumin Level 3.9 g/dL (3.5-5.1); Alkaline Phosphatase 33 U/L (38-126); Anion Gap 10 mmol/L (4-12); Aspartate Amino Transferase 18 U/L (17-59); Bilirubin,Total 1.7 mg/dL (0.2-1.3); Blood Urea Nitrogen 50 mg/dL (9-20); Calcium 8.9 mg/dL (8.4-10.2); Carbon Dioxide 26 mmol/L (22-30); Chloride 100 mmol/L (98-107); Estimated CRCL calculation 37 ml/min; Estimated Glomerular Filt Rate 46; Glucose 95 mg/dL (65-110); Sodium 136 mmol/L (137-145)
[2024-05-02] MEDS: FLUTICASONE/UMECLIDIN/VILANTER 100-62.5-25 MCG ELLIPTA 1 PUFF INHALATION (07:21)
[2024-05-02] MEDS: IPRATROPIUM NASAL SPRAY 0.06% 15 ML BOTTLE 2 SPRAY NASAL ×2 (08:39→21:55)
[2024-05-02] MEDS: AZELASTINE HCL NASAL 0.1% 137 MCG/SPR 30 ML BTL 1 SPRAY NASAL ×2 (08:40→21:55)
[2024-05-02] MEDS: FUROSEMIDE 40 MG TABLET PO (08:41)
[2024-05-02] MEDS: carvediloL 3.125 MG TABLET PO ×2 (08:41→21:54)
[2024-05-02] MEDS: PANTOPRAZOLE 40 MG TABLET PO (08:41)
[2024-05-02] MEDS: APIXABAN 2.5 MG TABLET PO ×2 (08:43→21:55)
--- NOTE | 2024-05-02 14:16 | PM.IMPN ---
Progress Note: A&P Assessment and Plan (1) CHF exacerbation: Qualifiers: Heart failure type: systolic Qualified Code(s): I50.23 - Acute on chronic systolic (congestive) heart failure Code(s): I50.9 - Heart failure, unspecified Status: Acute Assessment and Plan: - BNP 3210 - most recent echo (02/2022): LV systolic function severely reduced, estimated EF 15%. See report for details. - Echo 04/30/24 showed: Summary 1. Severely reduced LV systolic function. Mildly dilated LV size. 2. Reduced RV systolic function. 3. No significant valvular pathology was found on the study. Left Ventricle Left ventricular size is mildly dilated. Left ventricular wall thickness is normal. Left ventricular systolic function is severely reduced. LVEF is approximately 20%. There is grade 2 diastolic dysfunction. Right Ventricle The right ventricle appears to be normal size with reduced systolic function. There appears to be a pacemaker lead or catheter in the right ventricle. - currently home prescription is: Lasix 40 mg p.o. every other day. - Restart Lasix 40 mg PO daily. - monitor I&Os and daily weights - trend renal function (2) COPD (chronic obstructive pulmonary disease): Qualifiers: COPD type: COPD with acute exacerbation Qualified Code(s): J44.1 - Chronic obstructive pulmonary disease with (acute) exacerbation Code(s): J44.9 - Chronic obstructive pulmonary disease, unspecified Status: Chronic Assessment and Plan: - no wheezing on exam - continue inhalers: Albuterol, DuoNeb, Breztri (3) Chronic kidney disease (CKD) stage G3a/A2, moderately decreased glomerular filtration rate (GFR) between 45-59 mL/min/1.73 square meter and albuminuria creatinine ratio between 30-299 mg/g: Onset Date: ~12/13/23 Code(s): N18.31 - Chronic kidney disease, stage 3a Status: Chronic Assessment and Plan: - 05/01/24 am labs- BUN 47, Creatinine 2.00, GFR 33, repeat labs at 12: BUN 49, Creatinine 1.80, GFR 37. - 05/02/24: BUN 50, Creatinine 1.50, GFR 46 (improved) - baseline creatinine: 1.1-1.4 over the last year - trend renal function - trend electrolytes, correct as needed - Restart Lasix 40 mg PO daily. (4) HTN (hypertension): Qualifiers: Hypertension type: primary hypertension Qualified Code(s): I10 - Essential (primary) hypertension Code(s): I10 - Essential (primary) hypertension Status: Chronic Assessment and Plan: - chronic, currently 102/70 - continue home medications: Entresto 24-26 mg b.i.d. - monitor (5) Imbalance: Code(s): R26.89 - Other abnormalities of gait and mobility Status: Acute Assessment and Plan: - add PT/OT Plan Diet: Heart healthy GI Prophylaxis: Not currently indicated DVT Prophylaxis: Continue home Eliquis Lines: Peripheral Code Status: Full code Subjective Date/time seen: 05/02/24 14:16 Interval history: Patient reports shortness of breath with exertion today. Weight this morning 152.2 lb up 3 lb this morning. Patient denies chest pain, palpitations, headache, dizziness, nausea, or vomiting. Last bowel movement yesterday. Review of Systems Review of Systems: All systems reviewed & are unremarkable except as noted in HPI and below Exam Const: General: comfortable and no acute distress Eyes: Sclera: sclerae normal Neck: Neck: no JVD Resp: Auscultation: clear to auscultation bilaterally Cardio: Rate: regular rate Rhythm: regular rhythm GI: GI Palp: Yes Soft to palpation Auscultation: normal bowel sounds Skin: General skin exam: no rashes or lesions noted Neuro: Speech: normal speech Extrem: General: normal to inspection Psych: Mental Status: mental status grossly normal Affect: normal affect Objective Data Vital Signs Vital Signs: Vital Signs - 24 hr 05/01/24 20:51 05/02/24 06:00 05/02/24 07:21 Temperature 97.
[2024-05-02] MEDS: TAMSULOSIN HCL 0.4 MG CAPSULE PO (21:54)
[2024-05-02] MEDS: SACUBITRIL/VALSARTAN 24-26 MG TABLET 1 TAB PO (21:55)
[2024-05-03] VITALS (7 sets, daily range): BP systolic 98–116; BP diastolic 56–75; PULSE 72–102; RESP 14–20; TEMP 36.5–36.8; O2SAT 94–98
[2024-05-03 06:54] LABS: Basophils Absolute Auto 0.1 K/mm3 (0.0-0.1); Basophils Percent Auto 0.9 % (0.2-1.2); Eosinophils Absolute Auto 0.6 K/mm3 (0-0.3); Eosinophils Percent Auto 8.3 % (0-4.4); Hematocrit 44.5 % (42.0-52.0); Immature Granulocyte Absolute 0.02 K/mm3 (0.00-0.031); Immature Granulocyte Percent A 0.3 % (0-0.5); Lymphocytes Absolute Auto 1.64 K/mm3 (0.9-3.2); Lymphocytes Percent Auto 21.9 % (18.3-44.2); Mean Corpuscular HGB Conc 31.5 g/dl (32-36); Mean Corpuscular Volume 92.1 fl (80-100); Mean Platelet Volume 9.7 fl (7.4-10.4); Monocytes Absolute Auto 0.6 K/mm3 (0.1-0.6); Neutrophils Absolute Auto 4.5 K/mm3 (1.3-6.7); Neutrophils Percent Auto 60.6 % (45.5-73.1); Platelet Count Result 263 k/mm3 (150-375); Red Blood Count 4.83 M/mm3 (4.6-6.20); White Blood Count 7.5 K/mm3 (4.5-10.0)
[2024-05-03] MEDS: FLUTICASONE/UMECLIDIN/VILANTER 100-62.5-25 MCG ELLIPTA 1 PUFF INHALATION (07:05)
[2024-05-03 07:09] LABS: Alanine Aminotransferase 10 U/L (6-50); Alkaline Phosphatase 36 U/L (38-126); Anion Gap 5 mmol/L (4-12); Aspartate Amino Transferase 20 U/L (17-59); Bilirubin,Total 1.2 mg/dL (0.2-1.3); Blood Urea Nitrogen 47 mg/dL (9-20); Calcium 8.8 mg/dL (8.4-10.2); Carbon Dioxide 32 mmol/L (22-30); Chloride 98 mmol/L (98-107); Estimated CRCL calculation 37 ml/min; Estimated Glomerular Filt Rate 46; Glucose 102 mg/dL (65-110); Potassium 4.1 mmol/L (3.4-5.0); Sodium 135 mmol/L (137-145)
[2024-05-03] MEDS: PANTOPRAZOLE 40 MG TABLET PO (09:31)
[2024-05-03] MEDS: carvediloL 3.125 MG TABLET PO ×2 (09:31→21:14)
[2024-05-03] MEDS: APIXABAN 2.5 MG TABLET PO ×2 (09:31→21:14)
[2024-05-03] MEDS: SACUBITRIL/VALSARTAN 24-26 MG TABLET 1 TAB PO ×2 (09:31→21:14)
[2024-05-03] MEDS: FUROSEMIDE INJ 40 MG/4 ML VIAL IV PUSH (11:23)
--- NOTE | 2024-05-03 15:36 | PM.IMPN ---
Progress Note: A&P Assessment and Plan (1) CHF exacerbation: Qualifiers: Heart failure type: systolic Qualified Code(s): I50.23 - Acute on chronic systolic (congestive) heart failure Code(s): I50.9 - Heart failure, unspecified Status: Acute Assessment and Plan: - BNP 3210 - most recent echo (02/2022): LV systolic function severely reduced, estimated EF 15%. See report for details. - Echo 04/30/24 showed: Summary 1. Severely reduced LV systolic function. Mildly dilated LV size. 2. Reduced RV systolic function. 3. No significant valvular pathology was found on the study. Left Ventricle Left ventricular size is mildly dilated. Left ventricular wall thickness is normal. Left ventricular systolic function is severely reduced. LVEF is approximately 20%. There is grade 2 diastolic dysfunction. Right Ventricle The right ventricle appears to be normal size with reduced systolic function. There appears to be a pacemaker lead or catheter in the right ventricle. - currently home prescription is: Lasix 40 mg p.o. every other day. - Patient with a 2 lb weight gain overnight. Change Lasix 40 mg IVP x1. - monitor I&Os and daily weights - trend renal function (2) COPD (chronic obstructive pulmonary disease): Qualifiers: COPD type: COPD with acute exacerbation Qualified Code(s): J44.1 - Chronic obstructive pulmonary disease with (acute) exacerbation Code(s): J44.9 - Chronic obstructive pulmonary disease, unspecified Status: Chronic Assessment and Plan: - no wheezing on exam - continue inhalers: Albuterol, DuoNeb, Breztri (3) Chronic kidney disease (CKD) stage G3a/A2, moderately decreased glomerular filtration rate (GFR) between 45-59 mL/min/1.73 square meter and albuminuria creatinine ratio between 30-299 mg/g: Onset Date: ~12/13/23 Code(s): N18.31 - Chronic kidney disease, stage 3a Status: Chronic Assessment and Plan: - 05/01/24 am labs- BUN 47, Creatinine 2.00, GFR 33, repeat labs at 12: BUN 49, Creatinine 1.80, GFR 37. - 05/02/24: BUN 50, Creatinine 1.50, GFR 46 - 05/03/24: BUN 47, Creatinine 1.50, GFR 46 - baseline creatinine: 1.1-1.4 over the last year - trend renal function - trend electrolytes, correct as needed (4) HTN (hypertension): Qualifiers: Hypertension type: primary hypertension Qualified Code(s): I10 - Essential (primary) hypertension Code(s): I10 - Essential (primary) hypertension Status: Chronic Assessment and Plan: - blood pressure 116/75. - continue home medications: Entresto 24-26 mg b.i.d. - monitor Plan Diet: Heart healthy GI Prophylaxis: Not currently indicated DVT Prophylaxis: Continue home Eliquis Lines: Peripheral Code Status: Full code Subjective Date/time seen: 05/03/24 15:36 Interval history: Patient reports shortness of breath with exertion today. Weight this morning 154.5 lb up 2 lb this morning. Patient reports that he is eating better here than he does at home. Patient denies chest pain, palpitations, headache, dizziness, nausea, or vomiting. Last bowel movement yesterday. Review of Systems Review of Systems: All systems reviewed & are unremarkable except as noted in HPI and below Exam Const: General: comfortable and no acute distress Eyes: Sclera: sclerae normal Resp: Effort & Inspection: normal respiratory effort Auscultation: clear to auscultation bilaterally Cardio: Rate: regular rate Rhythm: regular rhythm GI: GI Palp: Yes Soft to palpation Auscultation: normal bowel sounds : Other: voiding without difficulty Skin: General skin exam: no rashes or lesions noted Neuro: Speech: normal speech Extrem: General: normal to inspection Psych: Mental Status: mental status grossly normal Affect: normal affect Objective Data Vital Signs Vital Signs: Vital Signs - 24 hr 05/02/24 21:50 05/02/24 2
--- NOTE | 2024-05-03 19:02 | PC.NURSE ---
I have personally reviewed all documentation and med administration performed by Maggie Yanes LPN
[2024-05-03] MEDS: TAMSULOSIN HCL 0.4 MG CAPSULE PO (21:14)
[2024-05-04 05:37] VITALS: BP 106/60; PULSE 85; RESP 18; TEMP 36.6; O2SAT 97
[2024-05-04 06:26] LABS: Basophils Absolute Auto 0.1 K/mm3 (0.0-0.1); Basophils Percent Auto 0.7 % (0.2-1.2); Eosinophils Absolute Auto 0.6 K/mm3 (0-0.3); Eosinophils Percent Auto 7.9 % (0-4.4); Hematocrit 45.4 % (42.0-52.0); Hemoglobin 14.7 g/dL (14.0-18.0); Immature Granulocyte Absolute 0.03 K/mm3 (0.00-0.031); Immature Granulocyte Percent A 0.4 % (0-0.5); Lymphocytes Absolute Auto 1.44 K/mm3 (0.9-3.2); Lymphocytes Percent Auto 20.1 % (18.3-44.2); Mean Corpuscular HGB Conc 32.4 g/dl (32-36); Mean Corpuscular Hemoglobin 29.7 pg (26-34); Mean Corpuscular Volume 91.7 fl (80-100); Mean Platelet Volume 9.6 fl (7.4-10.4); Monocytes Absolute Auto 0.6 K/mm3 (0.1-0.6); Monocytes Percent Auto 8.2 % (2.6-8.5); Neutrophils Absolute Auto 4.5 K/mm3 (1.3-6.7); Neutrophils Percent Auto 62.7 % (45.5-73.1); Platelet Count Result 250 k/mm3 (150-375); Red Blood Count 4.95 M/mm3 (4.6-6.20); Red Cell Distribution Width 13.1 % (11.5-14.5); White Blood Count 7.2 K/mm3 (4.5-10.0)
[2024-05-04 06:39] LABS: Alanine Aminotransferase 10 U/L (6-50); Alkaline Phosphatase 36 U/L (38-126); Anion Gap 6 mmol/L (4-12); Aspartate Amino Transferase 17 U/L (17-59); Bilirubin,Total 1.6 mg/dL (0.2-1.3); Blood Urea Nitrogen 40 mg/dL (9-20); Calcium 9.1 mg/dL (8.4-10.2); Carbon Dioxide 33 mmol/L (22-30); Chloride 96 mmol/L (98-107); Estimated CRCL calculation 37 ml/min; Estimated Glomerular Filt Rate 46; Glucose 95 mg/dL (65-110); Potassium 4.6 mmol/L (3.4-5.0); Sodium 135 mmol/L (137-145)
[2024-05-04] MEDS: FLUTICASONE/UMECLIDIN/VILANTER 100-62.5-25 MCG ELLIPTA 1 PUFF INHALATION (08:05)
[2024-05-04] MEDS: APIXABAN 2.5 MG TABLET PO (09:52)
[2024-05-04] MEDS: SACUBITRIL/VALSARTAN 24-26 MG TABLET 1 TAB PO (09:52)
[2024-05-04] MEDS: PANTOPRAZOLE 40 MG TABLET PO (09:52)
[2024-05-04 09:53] VITALS: PULSE 80
[2024-05-04] MEDS: carvediloL 3.125 MG TABLET PO (09:53)
[2024-05-04] MEDS: FUROSEMIDE 40 MG TABLET PO (09:53)
[2024-05-04] MEDS: AZELASTINE HCL NASAL 0.1% 137 MCG/SPR 30 ML BTL 1 SPRAY NASAL (09:54)
--- NOTE | 2024-05-04 11:15 | PM.DS ---
DS: Admitting Diagnosis Discharge Date 05/04/24 Admitting Diagnosis upper respiratory infection DS: Discharge Diagnosis Discharge Diagnosis Plan CHF exacerbation DS: Summary Hospital Course Hospital Course: BNP 3210 on admission. Patient responded well to IV Lasix and has transitioned to oral Lasix. Denies shortness of breath at this time. Weight 150 lb 13 oz today. Chest X-ray showed: Emphysema with mild pulmonary edema at the lung bases. Echocardiogram 04/30/24 showed: Summary 1. Severely reduced LV systolic function. Mildly dilated LV size. 2. Reduced RV systolic function. 3. No significant valvular pathology was found on the study. Left Ventricle Left ventricular size is mildly dilated. Left ventricular wall thickness is normal. Left ventricular systolic function is severely reduced. LVEF is approximately 20%. There is grade 2 diastolic dysfunction. Right Ventricle The right ventricle appears to be normal size with reduced systolic function. There appears to be a pacemaker lead or catheter in the right ventricle. Ejection fraction improved from 15% to 20%. Status at Discharge Functional status at discharge: independent ambulation Overall status at discharge: patient is progressing back to baseline Time Spent with Patient Time attestation: Total time spent providing and/or coordinating discharge services: Time spent: Greater than 30 minutes Exam Const: General: comfortable and no acute distress Neck: Neck: no JVD Resp: Effort & Inspection: normal respiratory effort Auscultation: clear to auscultation bilaterally Cardio: Rate: regular rate Rhythm: regular rhythm GI: GI Palp: Yes Soft to palpation Auscultation: normal bowel sounds Extrem: General: normal to inspection Psych: Mental Status: mental status grossly normal Affect: normal affect DS: Data Data Completed and Pending Labs on day of discharge: Labs from last 24 hours 05/04/24 06:03 WBC 7.2 RBC 4.95 Hgb 14.7 Hct 45.4 MCV 91.7 MCH 29.7 MCHC 32.4 RDW 13.1 Plt Count 250 MPV 9.6 Immature Gran % (Auto) 0.4 Neut % (Auto) 62.7 Lymph % (Auto) 20.1 [place] % (Auto) 8.2 Eos % (Auto) 7.9 H Baso % (Auto) 0.7 Lymph # (Auto) 1.44 [place] # (Auto) 0.6 Eos # (Auto) 0.6 H Baso # (Auto) 0.1 Abs Immat Gran (auto) 0.03 Absolute Neuts (auto) 4.5 Absolute Nucleated RBC 0.000 Nucleated RBC % 0.0 Sodium 135 L Potassium 4.6 Chloride 96 L Carbon Dioxide 33 H Anion Gap 6 BUN 40 H Creatinine 1.50 H Estim Creat Clear Calc 37 Estimated GFR 46 L Glucose 95 Calcium 9.1 Total Bilirubin 1.6 H AST 17 ALT 10 Alkaline Phosphatase 36 L Total Protein 7.0 Albumin 4.0 Discharge Plan Discharge Attending physician on discharge: Armani Gallardo Discharging Clinician: Hazel Khoury Anticipated Discharge Date/Time: 05/04/24 13:00 Patient Disposition: Home, Self-Care Activity: december shower Diet: heart healthy Discharge Instructions: - Daily weights. Record and take to primary office. - Read labels to review salt content. - Call provider if you gain more than 3 pounds in 1 day or 1 pound a day for 3 days. - Call provider if you have increased swelling or shortness of breath. Patient Instructions: Antibiotic Form, Apixaban (By mouth), Heart Failure (DC), Heart Healthy Diet (DC) Stand Alone Forms: General Discharge Information Follow-up/Referrals: John Paul Nava MD [Physician] - 1 Week Nj Espino MD [Primary Care Provider] - 1 Week Discharge Medications: New furosemide 40 mg Tablet 40 mg PO DAILY Qty: 30 0RF Continued azelastine 137 mcg (0.1 %) aerosol,spray 1 - 2 spray intranasal Q12H Qty: 30 11RF Rx Instructions: administer into each nostril. Aim back/up/out tamsulosin [Flomax] 0.4 mg capsule 0.4 mg PO QHS Qty: 30 11RF Eliquis 2.5 mg tablet 2.5 mg PO BID ipratropium bromide 42 mcg (0.06 %) spray,non-aerosol 2 s
== END 2024-05-04 13:55 | disposition home or self-care (01) | DRG 291 ==
LOC: ANHED 12:43 → ANH3MEDSUR 16:18
PROVIDERS: Student in an Organized Health Care Education/Training Program; Admitting Provider Internal Medicine; Emergency Provider Emergency Medicine; PCP Family Medicine; Visit Provider Nurse Practitioner Family
DX: I13.0 Hypertensive heart and chronic kidney disease with heart failure and stage 1 through stage 4 chronic kidney disease, or unspecified chronic kidney disease (principal); I50.23 Acute on chronic systolic (congestive) heart failure; I48.20 Chronic atrial fibrillation, unspecified; N18.31 Chronic kidney disease, stage 3a; J44.9 Chronic obstructive pulmonary disease, unspecified; K21.9 Gastro-esophageal reflux disease without esophagitis; I25.5 Ischemic cardiomyopathy; E78.5 Hyperlipidemia, unspecified; N40.0 Benign prostatic hyperplasia without lower urinary tract symptoms; D50.9 Iron deficiency anemia, unspecified; I25.10 Atherosclerotic heart disease of native coronary artery without angina pectoris; E78.2 Mixed hyperlipidemia; F41.9 Anxiety disorder, unspecified; R26.89 Other abnormalities of gait and mobility; I25.2 Old myocardial infarction; Z95.5 Presence of coronary angioplasty implant and graft; Z86.16 Personal history of COVID-19; Z85.820 Personal history of malignant melanoma of skin; Z95.810 Presence of automatic (implantable) cardiac defibrillator; Z87.891 Personal history of nicotine dependence
CPT/HCPCS: 36415; 71045; 80048; 80053; 83735; 83880; 85025; 85610; 85730; 93306; 94640; 96374; 96376; 97161; 99285; A9270; G0378; J1940

== ENCOUNTER 2024-07-08 14:49 | Inpatient (IN) | payer MEDICARE, SELFPAY ==
[2024-07-08] VITALS (19 sets, daily range): BP systolic 93–125; BP diastolic 64–98; PULSE 61–178; RESP 11–22; TEMP 36–36.6; O2SAT 91–100; BMI 23.1
--- NOTE | ~2024-07-08 | US_ITS ---
Limited ABDOMINAL ULTRASOUND Ordering provider: Natalie Valle History: . elevated total bilirubin . Comparison: None. FINDINGS: LIVER: Coarse echotexture suggestive of fat infiltration. No definite evidence of cirrhosis. Clinical correlation advised. No focal hepatic lesions or perihepatic fluid collections are identified. Gris l flow of the portal vein. GALLBLADDER: Unremarkable. No evidence for stones, sludge, gallbladder wall thickening or pericholecy stic fluid collections. A negative sonographic [place]'s sign was noted. BILIARY DUCTS: No evidence for intra or extrahepatic biliary dilation. Common bile duct measures 2 mm in diameter which is within normal limits. PANCREAS: Not well demonstrated. UPPER ABDOMINAL AORTA: Normal in caliber. IVC: Patent. FREE FLUID: None. IMPRESSION: Fat infiltration. Otherwise, Unremarkable limited ultrasound of the abdomen. Reviewed, dictated and finalized at location A. [address] DEPARTMENT
--- NOTE | ~2024-07-08 | XR_ITS ---
XR chest 1V portable 07/08/2024 16:13 Indication: Atrial fibrillation. Shortness of breath. Procedure: AP portable chest Comparison: Comparison to multiple prior studies sequentially, with oldest reviewed study dated 02/16. Findings: Heart size upper normal. Pacemaker leads are stable. No focal air space disease, pulmonary edema, pleural effusion or suspected pneumothorax. The lungs are hyperinflated which is consistent wi th, but not diagnostic of chronic obstructive pulmonary disease. Impression: 1: No acute cardiopulmonary disease. Reviewed, dictated and finalized at location B. ICAL ASSIST Impression: 1: No acute cardiopulmonary disease.
--- NOTE | 2024-07-08 14:55 | ECG_ITS ---
Test Date: 2024-07-08 15:02:02 Measurements Intervals [place] Rate: 166 P: 0 AR: 0 QRS: 96 QRSD: 100 T: 0 QT: 273 QTc: 454 Interpretive Statements ATRIAL FIBRILLATION WITH RAPID VENTRICULAR RESPONSE BORDERLINE RIGHT AXIS DEVIATION [QRS AXIS > 90] LOW QRS VOLTAGE IN EXTREMITY LEADS [QRS DEFLECTION < 0.5 mV IN LIMB LEADS] NONSPECIFIC ST T WAVE ABNORMALITY ABNORMAL ECG No previous ECG available for comparison Electronically Signed On 07-08-2024 15:06:31 SHOULDER JOINER by Trevor Ocasio M.D.
[2024-07-08] MEDS: METOPROLOL TARTRATE INJ 5 MG/5 ML VIAL IV PUSH (15:10)
[2024-07-08 15:17] LABS: Alveolar/Arterial O2 Gradient 28.8 mmHg; Base Excess ABG -3.7 mEq/l (+/-2.0); Carboxyhemoglobin 0.9 % THb (0-2.0); Device ROOM AIR; Fractional Inspired Oxygen 21 %; HCO3 ABG 19.4 mEq/l (22.0-26.0); Methemoglobin ABG 0.1 %THb (0-1.5); Oxygen Content ABG 20.3 %vol (16.0-22.0); Oxygen Saturation ABG 96.7 % (95.0-100.0); Oxyhemoglobin 95.5 % THb (90.0-100.0); PCO2 ABG 30.5 mmHg (35.0-45.0); PO2 ABG 84.4 mmHg (80.0-100.0); PO2 FiO2 Ratio Arterial Blood 4.02 %; Reduced Hemoglobin 3.5 %THb (0-5.0); Site Drawn RIGHT BRACHIAL; Total Hemoglobin 15.1 g/dL (12.0-18.0); pH ABG 7.422 (7.350-7.450)
--- NOTE | 2024-07-08 15:18 | ED.GENADULT ---
HPI - General Adult General Chief complaint: Shortness of Breath/Dyspnea Stated complaint: shortness of breath, heart racing Time Seen by Provider: 07/08/24 14:58 History of Present Illness HPI narrative: 73-year-old male present to the emergency department for evaluation for rapid heart rate. Patient does have a history of AFib and does take carvedilol. Patient states he has been taking his blood pressure medications. Patient states for the last 3 days he feels his heart rate has been elevated. Patient reports when he takes his carvedilol heart rate decreases but then comes back up again. Patient reports he has had decreased p.o. intake over the last few days as well. Related Data Home Medications ?Medication ?Instructions ?Recorded ?Confirmed ?Last Taken ?Type pantoprazole 40 mg tablet,delayed 40 mg PO DAILY 07/09/24 07/09/24 Unknown History release Allergies Allergy/AdvReac Type Severity Reaction Status Date / Time codeine AdvReac Mild HALLUCINATI Verified 04/29/24 12:07 ONS Review of Systems Review of Systems: All systems reviewed & are unremarkable except as noted in HPI and below PMFSH Past Medical History Medical History Acute kidney injury Acute on chronic heart failure with reduced ejection fraction and diastolic dysfunction Afib Atrial fibrillation with RVR BMI 24.0-24.9, adult BPH without obstruction/lower urinary tract symptoms PSA 2.1 on 12/13/2023. BPPV (benign paroxysmal positional vertigo) CAD (coronary artery disease) acute MS with stents. CHF (congestive heart failure) Chronic anxiety Chronic atrial fibrillation Chronic kidney disease (CKD) stage G3a/A2, moderately decreased glomerular filtration rate (GFR) between 45-59 mL/min/1.73 square meter and albuminuria creatinine ratio between 30-299 mg/g (~12/13/23) BUN 28, creatinine 1.40 with GFR 49 on 12/13/2023. BUN 26, creatinine 1.3 with GFR 54 on 04/27/2024. 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 GERD (gastroesophageal reflux disease) Heart disease History of malignant melanoma right forearm with wide excision 2020 HLD (hyperlipidemia) HTN (hypertension) Iron deficiency anemia Iron 116 with 32% saturation and ferritin 71.5 with hemoglobin 15.2 on 12/13/2023. Ischemic cardiomyopathy with implantable cardioverter-defibrillator (ICD) Recent ejection fraction of 15%. Echo 02/21/2024 with severe global left ventricular hypokinesis with ejection fraction of 25% with moderate mitral valve regurgitation. Echo with ejection fraction 25% and grade 2 diastolic dysfunction on 04/30/2024. Mixed hyperlipidemia Cholesterol 243, triglycerides 123, HDL 52, LDL 139 on 12/13/2023. Cholesterol 226, triglycerides 116, HDL 42, LDL 145 on 04/27/2024. Pacemaker Seasonal allergic rhinitis Skin cancer Transaminitis Family History Family History Father Heart disease Other Cerebrovascular accident Mother Kidney failure Heart disease Acute myocardial infarction Social History Social History Social History: Patient lives on his own. He denies having any children or pets. Jorge his brother is his surrogate. and he wishes to be a full code. Smoking packs per day: 0.5 Smoking cigarettes per day: 10.0 Years smoked: 18 Smoking pack-years: 9.00 Smoking status: Former smoker Tobacco type: cigarettes Second hand tobacco smoke exposure: No Smoking end date: 07/08/14 Alcohol intake: never Drinks per week: 2 Alcohol use details: beer Substance use: never Substance use type: does not use Do You Feel Safe in your Home?: Yes Lack of Transportation: No Lack of Food: Never True Current Housing: I Have Housing Concerned About Future Housing: No Difficulty Paying Gas/Electric Bills: No Difficulty Paying for Meds: No Currently Unemployed: No Education: High School Diploma/GED Difficulty w/ Childcare or Family Care: No Living arrangements: alone Gender identity (if verbalized by the patient): Male Sexual Orientation (if Verbalized by the Patient): Straight or Heterosexual Spiritual care concerns: No Agree to blood products: Yes Course Vital Signs Vital signs: Vital Signs Temperature 97.8 F 07/08/24 15:00 Pulse Rate 178 H 07/08/24 15:00 Respiratory Rate 17 07/08/24 15:00 Blood Pressure 116/87 07/08/24 15:00 Temperature 97.6 F 07/13/24 14:00 Pulse Rate 98 07/13/24 14:12 Respiratory Rate 20 07/13/24 14:12 Blood Pressure 107/76 07/13/24 14:00 Pulse Oximetry 99 07/13/24 14:00 Oxygen Delivery Room Air 07/13/24 07:22 Oxygen Flow Rate 2 07/10/24 14:00 Fraction of Inspired Oxygen 21 07/12/24 14:13 Medical Decision Making MDM Narrative Medical decision making narrative: 73-year-old male with history of AFib presented emergency department for evaluation for AFib with RVR and CHF. Patient fell heart palpitations over the last 3 days. Patient has had decreased p.o. intake. Patient was also found to be hypoxic in the emergency department placed on oxygen. Patient's suspected this was fluid overload but this also appears to be a component COPD. Patient was started on Cardizem to help control his heart rate and this did slow his heart rate. Case was discussed with hospitalist patient was accepted to the IMU. Differential Diagnosis Differential Diagnosis: COPD, CHF, AFib with RVR, ACS Medical Records Medical records reviewed: Yes I reviewed the external patient's medical records. Vital Signs Vital Signs: Vital Signs Temperature 97.8 F 07/08/24 15:00 Pulse Rate 178 H 07/08/24 15:00 Respiratory Rate 17 07/08/24 15:00 Blood Pressure 116/87 07/08/24 15:00 Temperature 97.6 F 07/13/24 14:00 Pulse Rate 98 07/13/24 14:12 Respiratory Rate 20 07/13/24 14:12 Blood Pressure 107/76 07/13/24 14:00 Pulse Oximetry 99 07/13/24 14:00 Oxygen Delivery Room Air 07/13/24 07:22 Oxygen Flow Rate 2 07/10/24 14:00 Fraction of Inspired Oxygen 21 07/12/24 14:13 Lab Data Lab results reviewed: Yes I reviewed the patient's lab results. 07/13/24 05:26 07/13/24 12:15 Labs: Lab Results 07/08/24 07/08/24 07/08/24 Range/Units 15:03 15:09 15:09 WBC 8.1 (4.5-10.0) K/mm3 RBC 5.49 (4.6-6.20) M/mm3 Hgb 16.1 (14.0-18.0) g/dL Hct 50.8 (42.0-52.0) % MCV 92.5 (80-100) fl MCH 29.3 (26-34) pg MCHC 31.7 L (32-36) g/dl RDW 13.5 (11.5-14.5) % Plt Count 278 (150-375) k/mm3 MPV 10.3 (7.4-10.4) fl Immature Gran % (Auto) 0.4 (0-0.5) % Neut % (Auto) 69.5 (45.5-73.1) % Lymph % (Auto) 23.2 (18.3-44.2) % [place] % (Auto) 4.8 (2.6-8.5) % Eos % (Auto) 1.4 (0-4.4) % Baso % (Auto) 0.7 (0.2-1.2) % Lymph # (Auto) 1.88 (0.9-3.2) K/mm3 [place] # (Auto) 0.4 (0.1-0.6) K/mm3 Eos # (Auto) 0.1 (0-0.3) K/mm3 Baso # (Auto) 0.1 (0.0-0.1) K/mm3 Abs Immat Gran (auto) 0.03 (0.00-0.031) K/mm3 Absolute Neuts (auto) 5.6 (1.3-6.7) K/mm3 Absolute Nucleated RBC 0.000 (0.0-0.012) K/mm3 Nucleated RBC % 0.0 (0.0-0.2) % PT 17.1 H (11.1-14.7) Seconds INR 1.3 APTT 32.2 (22.3-36.8) Seconds D-Dimer Cancelled Methemoglobin 0.1 (0-1.5) %THb Sodium 139 (137-145) mmol/L Potassium 5.5 H (3.4-5.0) mmol/L Chloride 102 (98-107) mmol/L Carbon Dioxide 25 (22-30) mmol/L Anion Gap 12 (4-12) mmol/L BUN 40 H (9-20) mg/dL Creatinine 2.20 H (0.7-1.3) mg/dL Estim Creat Clear Calc 26 ml/min Estimated GFR 29 L (59 - ) Glucose 136 H (65-110) mg/dL Calcium 9.9 (8.4-10.2) mg/dL Magnesium 1.9 Cancelled (1.6-2.3) mg/dL Total Bilirubin 4.1 H (0.2-1.3) mg/dL AST 36 (17-59) U/L ALT 23 (6-50) U/L Alkaline Phosphatase 51 (38-126) U/L Troponin I < 0.012 (0.000-0.034) ng/mL NT-Pro-B Natriuret Pep 07861 H (19.9-100) pg/mL Total Protein 9.0 H (6.3-8.2) g/dL Albumin 5.2 H (3.5-5.1) g/dL 07/08/24 07/08/24 07/09/24 Range/Units 18:26 21:02 04:54 WBC 7.9 (4.5-10.0) K/mm3 RBC 4.31 L (4.6-6.20) M/mm3 Hgb 12.8 L D (14.0-18.0) g/dL Hct 39.6 L (42.0-52.0) % MCV 91.9 (80-100) fl MCH 29.7 (26-34) pg MCHC 32.3 (32-36) g/dl RDW 13.5 (11.5-14.5) % Plt Count 196 (150-375) k/mm3 MPV 10.4 (7.4-10.4) fl Immature Gran % (Auto) 0.4 (0-0.5) % Neut % (Auto) 83.4 H (45.5-73.1) % Lymph % (Auto) 10.9 L (18.3-44.2) % [place] % (Auto) 4.2 (2.6-8.5) % Eos % (Auto) 0.5 (0-4.4) % Baso % (Auto) 0.6 (0.2-1.2) % Lymph # (Auto) 0.86 L (0.9-3.2) K/mm3 [place] # (Auto) 0.3 (0.1-0.6) K/mm3 Eos # (Auto) 0.0 (0-0.3) K/mm3 Baso # (Auto) 0.1 (0.0-0.1) K/mm3 Abs Immat Gran (auto) 0.03 (0.00-0.031) K/mm3 Absolute Neuts (auto) 6.6 (1.3-6.7) K/mm3 Absolute Nucleated RBC 0.000 (0.0-0.012) K/mm3 Nucleated RBC % 0.0 (0.0-0.2) % PT (11.1-14.7) Seconds INR APTT (22.3-36.8) Seconds D-Dimer Methemoglobin (0-1.5) %THb Sodium 138 137 (137-145) mmol/L Potassium 5.3 H 4.9 (3.4-5.0) mmol/L Chloride 104 102 (98-107) mmol/L Carbon Dioxide 24 24 (22-30) mmol/L Anion Gap 10 11 (4-12) mmol/L BUN 41 H 44 H (9-20) mg/dL Creatinine 2.10 H 2.00 H (0.7-1.3) mg/dL Estim Creat Clear Calc 27 28 ml/min Estimated GFR 31 L 33 L (59 - ) Glucose 128 H 99 (65-110) mg/dL Calcium 9.3 8.9 (8.4-10.2) mg/dL Magnesium 1.7 (1.6-2.3) mg/dL Total Bilirubin 4.9 H (0.2-1.3) mg/dL AST 40 (17-59) U/L ALT 27 (6-50) U/L Alkaline Phosphatase 35 L (38-126) U/L Troponin I < 0.012 (0.000-0.034) ng/mL NT-Pro-B Natriuret Pep 50287 H (19.9-100) pg/mL Total Protein 8.0 (6.3-8.2) g/dL Albumin 4.7 (3.5-5.1) g/dL 07/10/24 Range/Units 03:36 WBC 9.8 (4.5-10.0) K/mm3 RBC 3.98 L (4.6-6.20) M/mm3 Hgb 12.1 L (14.0-18.0) g/dL Hct 38.2 L (42.0-52.0) % MCV 96.0 (80-100) fl MCH 30.4 (26-34) pg MCHC 31.7 L (32-36) g/dl RDW 14.3 (11.5-14.5) % Plt Count 188 (150-375) k/mm3 MPV 11.0 H (7.4-10.4) fl Immature Gran % (Auto) 0.3 (0-0.5) % Neut % (Auto) 89.2 H (45.5-73.1) % Lymph % (Auto) 6.3 L (18.3-44.2) % [place] % (Auto) 4.2 (2.6-8.5) % Eos % (Auto) 0.0 (0-4.4) % Baso % (Auto) 0.0 L (0.2-1.2) % Lymph # (Auto) 0.62 L (0.9-3.2) K/mm3 [place] # (Auto) 0.4 (0.1-0.6) K/mm3 Eos # (Auto) 0.0 (0-0.3) K/mm3 Baso # (Auto) 0.0 (0.0-0.1) K/mm3 Abs Immat Gran (auto) 0.03 (0.00-0.031) K/mm3 Absolute Neuts (auto) 8.8 H (1.3-6.7) K/mm3 Absolute Nucleated RBC 0.000 (0.0-0.012) K/mm3 Nucleated RBC % 0.0 (0.0-0.2) % PT (11.1-14.7) Seconds INR APTT (22.3-36.8) Seconds D-Dimer Methemoglobin (0-1.5) %THb Sodium 136 L (137-145) mmol/L Potassium 4.2 (3.4-5.0) mmol/L Chloride 99 (98-107) mmol/L Carbon Dioxide 28 (22-30) mmol/L Anion Gap 9 (4-12) mmol/L BUN 54 H D (9-20) mg/dL Creatinine 1.90 H (0.7-1.3) mg/dL Estim Creat Clear Calc 30 ml/min Estimated GFR 35 L (59 - ) Glucose 153 H (65-110) mg/dL Calcium 8.6 (8.4-10.2) mg/dL Magnesium 2.3 (1.6-2.3) mg/dL Total Bilirubin 3.7 H (0.2-1.3) mg/dL AST 33 (17-59) U/L ALT 30 (6-50) U/L Alkaline Phosphatase 42 (38-126) U/L Troponin I (0.000-0.034) ng/mL NT-Pro-B Natriuret Pep (19.9-100) pg/mL Total Protein 7.0 (6.3-8.2) g/dL Albumin 4.2 (3.5-5.1) g/dL ABG Data ABG results: 07/08/24 15:03 Puncture Site Right brachial ABG pH 7.422 ABG pCO2 30.5 L ABG pO2 84.4 ABG PO2/FiO2 Ratio 4.02 ABG HCO3 19.4 L ABG O2 Saturation 96.7 ABG O2 Content 20.3 ABG Base Excess -3.7 A-a Gradient 28.8 Oxyhemoglobin 95.5 Carboxyhemoglobin 0.9 Reduced Hemoglobin 3.5 Total Hemoglobin 15.1 O2 Delivery Device Room air O2 Liters/Min Not Reportable FiO2 21 Discharge Plan Discharge Clinical Impression: Atrial fibrillation with rapid ventricular response, Weakness Patient Disposition: Still a Patient Condition: Stable
[2024-07-08 15:20] LABS: Basophils Absolute Auto 0.1 K/mm3 (0.0-0.1); Basophils Percent Auto 0.7 % (0.2-1.2); Eosinophils Absolute Auto 0.1 K/mm3 (0-0.3); Eosinophils Percent Auto 1.4 % (0-4.4); Hematocrit 50.8 % (42.0-52.0); Hemoglobin 16.1 g/dL (14.0-18.0); Immature Granulocyte Absolute 0.03 K/mm3 (0.00-0.031); Immature Granulocyte Percent A 0.4 % (0-0.5); Lymphocytes Absolute Auto 1.88 K/mm3 (0.9-3.2); Lymphocytes Percent Auto 23.2 % (18.3-44.2); Mean Corpuscular HGB Conc 31.7 g/dl (32-36); Mean Corpuscular Hemoglobin 29.3 pg (26-34); Mean Corpuscular Volume 92.5 fl (80-100); Mean Platelet Volume 10.3 fl (7.4-10.4); Monocytes Absolute Auto 0.4 K/mm3 (0.1-0.6); Monocytes Percent Auto 4.8 % (2.6-8.5); Neutrophils Absolute Auto 5.6 K/mm3 (1.3-6.7); Neutrophils Percent Auto 69.5 % (45.5-73.1); Platelet Count Result 278 k/mm3 (150-375); Red Blood Count 5.49 M/mm3 (4.6-6.20); Red Cell Distribution Width 13.5 % (11.5-14.5); White Blood Count 8.1 K/mm3 (4.5-10.0)
[2024-07-08] MEDS: dilTIAZem HCl INJ 25 MG/5 ML VIAL 10 MG IV PUSH (15:21)
[2024-07-08] MEDS: SODIUM CHLORIDE 0.9% IV 1,000 ML 999 ML IV CONT (15:25)
[2024-07-08 15:27] LABS: Alanine Aminotransferase 23 U/L (6-50); Albumin Level 5.2 g/dL (3.5-5.1); Alkaline Phosphatase 51 U/L (38-126); Anion Gap 12 mmol/L (4-12); Aspartate Amino Transferase 36 U/L (17-59); Bilirubin,Total 4.1 mg/dL (0.2-1.3); Blood Urea Nitrogen 40 mg/dL (9-20); Calcium 9.9 mg/dL (8.4-10.2); Carbon Dioxide 25 mmol/L (22-30); Chloride 102 mmol/L (98-107); Estimated CRCL calculation 26 ml/min; Estimated Glomerular Filt Rate 29; Glucose 136 mg/dL (65-110); Magnesium 1.9 mg/dL (1.6-2.3); Potassium 5.5 mmol/L (3.4-5.0); Sodium 139 mmol/L (137-145)
[2024-07-08 15:32] LABS: INR 1.3; Prothrombin Time 17.1 Seconds (11.1-14.7)
[2024-07-08 15:33] LABS: Partial Thromboplastin Time 32.2 Seconds (22.3-36.8)
[2024-07-08 15:38] LABS: NT Pro B Type Natriuretic Pept 20600 pg/mL (19.9-100); Troponin I < 0.012 ng/mL (0.000-0.034)
[2024-07-08] MEDS: dilTIAZem 100 MG/100 ML 100 MG/100 ML BAG IV CONT ×2 (16:07→21:34)
[2024-07-08] MEDS: METOCLOPRAMIDE HCL INJ 10 MG/2 ML VIAL IV PUSH (16:07)
[2024-07-08] MEDS: ALBUTEROL SULFATE NEB 2.5 MG/3 ML INH INHALATION (17:40)
--- NOTE | 2024-07-08 18:24 | PC.NURSE ---
Arrived to the floor via stretcher from the ER. Alert and oriented at this time. VS stable, on 2L/NC, sats 100%. Patient complains that he can't breath . Respiratory rate is wnl, with no apparent distress noted at this time. Remains on diltiazem gtt as ordered in the ER. teletypesetter monitor on and functioning at this time, HR is 87, irregular. BP is 97/68. Patient requests to be given water pill . This RN called the provider and discussed plan for Lasix. At this time, the patient states that he did take his home dose of Lasix this morning prior to coming to the hospital. This RN discussed with patient that at this time, the provider does not see the need for a second dose of Lasix, however she will review the chart and place orders as needed. Verbalizes understanding at this time.
[2024-07-08 18:47] LABS: Anion Gap 10 mmol/L (4-12); Blood Urea Nitrogen 41 mg/dL (9-20); Calcium 9.3 mg/dL (8.4-10.2); Carbon Dioxide 24 mmol/L (22-30); Chloride 104 mmol/L (98-107); Estimated CRCL calculation 27 ml/min; Estimated Glomerular Filt Rate 31; Glucose 128 mg/dL (65-110); Potassium 5.3 mmol/L (3.4-5.0); Sodium 138 mmol/L (137-145)
--- NOTE | 2024-07-08 19:38 | P.HP_ITS ---
H&P: HPI History of Present Illness Date/Time: 07/08/24 19:38 Chief Complaint: Rapid heart rate and dyspnea Narrative: This is a 73-year-old male patient who was admitted to the hospital for atrial fibrillation with rapid ventricular rate and apparent CHF exacerbation. Patient reports that his heart rate has been elevated over the last 3 days. He has also decreased much he eats and drinks. He generally is feeling weak and deconditioned. Patient reports that he has been instructed to take his Lasix twice a day but he has had to take it each day recently last dose was the evening of 07/07 and he is requesting additional dose of Lasix now due to dyspnea. Patient found to be hypoxic so oxygen was applied at 2 liters/minute. Patient reports he uses inhalers at home and nebulizer treatments but does not wear oxygen at home. Patient reports he did have emesis x1 in the emergency department. Emergency department workup showed unremarkable chest x-ray, EKG showed atrial fibrillation with rapid ventricular rate of 166. He received relieved IV metoprolol IV diltiazem and then a diltiazem drip. He also received IV metoclopramide. Labs showed some mild hyperkalemia at 5.5 which went down to 5.3 on repeat draw also noted MIMA on CKD with creatinine of 2.2 and a BUN of 40 with an estimated GFR of 29. Previous estimated GFRs have ranged in the 30s to 50s but he does have a remote history being this low in 2021. ProBNP 10814 with a normal troponin. Patient's RN stated that she spoke to the patient's daughter who advised that patient use to be on hospice care for end stage CHF and she helped the patient manage his medications. She lives over an hour away and she is concerned that the patient is not managing his medication appropriately. Review of Systems Review of Systems: All systems reviewed & are unremarkable except as noted in HPI and below [facility] Past Medical History Medical History (Updated 07/08/24 @ 22:35 by Shaheed Sparks APRN) Acute kidney injury Acute on chronic heart failure with reduced ejection fraction and diastolic dysfunction Afib Atrial fibrillation with RVR BMI 24.0-24.9, adult BPH without obstruction/lower urinary tract symptoms PSA 2.1 on 12/13/2023. BPPV (benign paroxysmal positional vertigo) CAD (coronary artery disease) acute MA with stents. CHF (congestive heart failure) Chronic anxiety Chronic atrial fibrillation Chronic kidney disease (CKD) stage G3a/A2, moderately decreased glomerular filtration rate (GFR) between 45-59 mL/min/1.73 square meter and albuminuria creatinine ratio between 30-299 mg/g (~12/13/23) BUN 28, creatinine 1.40 with GFR 49 on 12/13/2023. BUN 26, creatinine 1.3 with GFR 54 on 04/27/2024. Chronic low back pain with right-sided sciatica x-ray of the lumbar spine on 09/18/2023 reveals mild degenerative changes of the lumbar spine COPD (chronic obstructive pulmonary disease) COVID-19 Current use of penitentiary anticoagulation Dizziness Elevated LFTs Elevated troponin Encounter for prostate cancer screening PSA 2.1 on 12/13/2023. GERD (gastroesophageal reflux disease) Heart disease History of malignant melanoma right forearm with wide excision 2020 HLD (hyperlipidemia) HTN (hypertension) Iron deficiency anemia Iron 116 with 32% saturation and ferritin 71.5 with hemoglobin 15.2 on 12/13/2023. Ischemic cardiomyopathy with implantable cardioverter-defibrillator (ICD) Recent ejection fraction of 15%. Echo 02/21/2024 with severe global left ventricular hypokinesis with ejection fraction of 25% with moderate mitral valve regurgitation. Echo with ejection fraction 25% and grade 2 diastolic dysfunction on 04/30/2024. Mixed hyperlipidemia Cholesterol 243, triglycerides 123, HDL 52, LDL 139 on 12/13/2023. Cholesterol 226, triglycerides 116, HDL 42, LDL 145 on 04/27/2024. Pacemaker Seasonal allergic rhinitis Skin cancer Transaminitis Family History Family History Father Heart disease Other Cerebrovascular accident Mother Kidney failure Heart disease Acute myocardial infarction Social History Social History Social History: Patient lives on his own. He denies having any children or pet sVahid Patel his brother is his surrogate. and he wishes to be a full code. Smoking packs per day: 0.5 Smoking cigarettes per day: 10.0 Years smoked: 18 Smoking pack-years: 9.00 Smoking status: Former smoker Tobacco type: cigarettes Second hand tobacco smoke exposure: No Smoking end date: 07/08/14 Alcohol intake: never Drinks per week: 2 Alcohol use details: beer Substance use: never Substance use type: does not use Do You Feel Safe in your Home?: Yes Lack of Transportation: No Lack of Food: Never True Current Housing: I Have Housing Concerned About Future Housing: No Difficulty Paying Gas/Electric Bills: No Difficulty Paying for Meds: No Currently Unemployed: No Education: High School Diploma/GED Difficulty w/ Childcare or Family Care: No Living arrangements: alone Gender identity (if verbalized by the patient): Male Sexual Orientation (if Verbalized by the Patient): Straight or Heterosexual Spiritual care concerns: No Agree to blood products: Yes Meds Home Medications and Allergies Home Medications Medication Instructions Recorded Confirmed Type carvedilol 3.125 mg tablet (Coreg) 3.125 mg PO Q12HR 30 days #60 tabs 02/19/22 07/08/24 Rx sacubitril 24 mg-valsartan 26 mg 1 tablet PO Q12HR 30 days #60 tabs 02/19/22 07/08/24 Rx tablet (Entresto) apixaban 2.5 mg tablet (Eliquis) 2.5 mg PO BID 09/18/23 07/08/24 History furosemide 40 mg tablet 40 mg PO DAILY #30 tabs 05/04/24 07/08/24 Rx albuterol sulfate 90 mcg/actuation 2 puff inhalation QID PRN 06/12/24 07/08/24 Rx aerosol inhaler shortness of breath or wheezing #8.5 grams Allergies Allergy/AdvReac Type Severity Reaction Status Date / Time codeine AdvReac Mild HALLUCINATI Verified 04/29/24 12:07 ONS Vital Signs Vital Signs - 24 hr 07/08/24 15:00 07/08/24 15:07 07/08/24 15:10 Temperature 36.6 C Pulse Rate 178 H 178 H 174 H Respiratory Rate 17 Blood Pressure 116/87 Pulse Oximetry Oxygen Delivery Oxygen Flow Rate 07/08/24 15:26 07/08/24 16:07 07/08/24 15:30 Temperature Pulse Rate 111 H 86 Respiratory Rate 14 Blood Pressure 94/64 L 98/73 L Pulse Oximetry 94 98 Oxygen Delivery Nasal Cannula Oxygen Flow Rate 2 07/08/24 17:11 07/08/24 15:26 07/08/24 15:31 Temperature Pulse Rate 85 114 H 91 Respiratory Rate 18 13 19 Blood Pressure 108/71 94/64 L 93/73 L Pulse Oximetry 99 98 Oxygen Delivery Oxygen Flow Rate 07/08/24 15:38 07/08/24 17:40 07/08/24 17:35 Temperature 36.0 C L Pulse Rate 89 93 92 Respiratory Rate 11 L 20 22 H Blood Pressure 98/73 L 97/68 L Pulse Oximetry 97 100 Oxygen Delivery Oxygen Flow Rate 07/08/24 18:00 Temperature Pulse Rate 90 Respiratory Rate Blood Pressure Pulse Oximetry Oxygen Delivery Oxygen Flow Rate Exam Narrative: GENERAL: Chronically ill-appearing, deconditioned, mild respiratory distress noted with supplemental oxygen in place HEAD: Normocephalic, atraumatic. ENT:? Mucous membranes moist. No obvious JVD CHEST: Crackles throughout, no wheezing, tachypnea with mild accessory muscle use HEART: Irregularly irregular rhythm, rate ranging from 90-100 atrial fibrillation on bedside telemetry per my interpretation. Normal peripheral pulses. ABDOMEN: Soft, nontender, nondistended. EXTREMITIES: Normal range of motion. No peripheral edema. SKIN: Warm dry normal color NEURO: Alert and oriented x3. PSYCH: Normal mood and affect H&P: Results Labs Labs: Short CBC 07/08/24 Range/Units 15:09 WBC 8.1 (4.5-10.0) K/mm3 Hgb 16.1 (14.0-18.0) g/dL Hct 50.8 (42.0-52.0) % Plt Count 278 (150-375) k/mm3 BMP 07/08/24 07/08/24 15:09 18:26 Sodium 139 138 Potassium 5.5 H 5.3 H Chloride 102 104 Carbon Dioxide 25 24 BUN 40 H 41 H Creatinine 2.20 H 2.10 H Glucose 136 H 128 H Calcium 9.9 9.3 Cardiac Enzymes 07/08/24 Range/Units 15:09 Troponin I < 0.012 (0.000-0.034) ng/mL Liver Function 07/08/24 Range/Units 15:09 Total Bilirubin 4.1 H (0.2-1.3) mg/dL AST 36 (17-59) U/L ALT 23 (6-50) U/L Alkaline Phosphatase 51 (38-126) U/L Albumin 5.2 H (3.5-5.1) g/dL ABG ABG results: PH 7.422, pCO2 30.5, PO2 84.4, HC03 19.4 Attestation: I personally reviewed and interpreted this ABG as follows: Interpretation: Compensated metabolic acidosis Pulse Oximetry SpO2 results: 91% on 2 LPM Nasal cannula Attestation: I personally reviewed and interpreted this pulse oximetry as follows: Interpretation: Patient continues to require supplemental oxygenation at this time ECG Attestation: I personally reviewed and interpreted this ECG as follows: ECG completion date: 07/08/24 ECG completion time: 22:28 Prior ECG tracings: available for review Interpretation: Atrial fibrillation with occasional PVC rate of 96 QRS duration 95 QTC 455 QRS axis 75 no STEMI Imaging Chest x-ray: Radiologist's impression: XR chest 1V portable 07/08/2024 16:13 Indication: Atrial fibrillation. Shortness of breath. Procedure: AP portable chest Comparison: Comparison to multiple prior studies sequentially, with oldest reviewed study dated 02/16/2022. Findings: Heart size upper normal. Pacemaker leads are stable. No focal air space disease, pulmonary edema, pleural effusion or suspected pneumothorax. The lungs are hyperinflated which is consistent with, but not diagnostic of chronic obstructive pulmonary disease. Impression: 1: No acute cardiopulmonary disease. Reviewed, dictated and finalized at location B. E I DIRECTOR Assessment and Plan Assessment and plan (1) Atrial fibrillation with rapid ventricular response: Code(s): I48.91 - Unspecified atrial fibrillation Status: Acute Assessment and Plan: -HR in 170s in ER, improved after diltiazem bolus and drip -Remains on 5 mg/hr drip in IMU (2) Acute on chronic heart failure with reduced ejection fraction and diastolic dysfunction: Code(s): I50.43 - Acute on chronic combined systolic (congestive) and diastolic ( congestive) heart failure Status: Acute Assessment and Plan: -BNP over 20,000 -New oxygen demand with dyspnea and crackles -Patient reports last took Lasix evening of 07/07, requested dose to start tonight -Uses nebulizers PRN for COPD, stated he needed water pill not nebulizer right now -Last Echo 04/2024 as below: Summary 1. Severely reduced LV systolic function. Mildly dilated LV size. 2. Reduced RV systolic function. 3. No significant valvular pathology was found on the study. Left Ventricle Left ventricular size is mildly dilated. Left ventricular wall thickness is normal. Left ventricular systolic function is severely reduced. LVEF is approximately 20%. There is grade 2 diastolic dysfunction. Right Ventricle The right ventricle appears to be normal size with reduced systolic function. There appears to be a pacemaker lead or catheter in the right ventricle. (3) COPD (chronic obstructive pulmonary disease): Qualifiers: COPD type: COPD with acute exacerbation Qualified Code(s): J44.1 - Chronic obstructive pulmonary disease with (acute) exacerbation Code(s): J44.9 - Chronic obstructive pulmonary disease, unspecified Status: Chronic Assessment and Plan: -No wheezing noted -Defer steroids and antibiotics at this time -Nebs and inhaler ordered PRN (4) Weakness: Code(s): R53.1 - Weakness Status: Acute Assessment and Plan: -Likely chronic deconditioning related to severe CHF and COPD -Patient previously on hospice care, took himself off and now wants to remain full code (5) Acute kidney injury superimposed on CKD: Code(s): N17.9 - Acute kidney failure, unspecified; N18.9 - Chronic kidney disease, unspecified Status: Acute Assessment and Plan: -Patient told to take Lasix every other day, likely due to worsening CKD -Patient did receive 1000 mL Normal Saline in ER. -Lasix oral and IV albumin to keep BP from dropping since taking with Coreg and Entresto. (6) Ischemic cardiomyopathy with implantable cardioverter-defibrillator (ICD): Code(s): I25.5 - Ischemic cardiomyopathy; Z95.810 - Presence of automatic (implantable) cardiac defibrillator Status: Acute Assessment and Plan: -Implanted ICD, patient denies any shocks delivered (7) Elevated bilirubin: Code(s): R17 - Unspecified jaundice Status: Acute Assessment and Plan: -Total bilirubin 4.1 with otherwise normal liver function tests -History of elevation noted on trends of labs, possibly from portal congestion related to CHF with Right sided heart failure? Quality VTE Prophylaxis VTE prophylaxis: pharmacologic ordered (Resume home Eliquis) Hospitalist [facility] Advance Care Plan I have confirmed that the patient's Advanced Care Plan is present, code status is documented, or surrogate decision maker is listed in patient medical record.: Yes Medication Reconciliation I have utilized all available resources to obtain, update and review the patients current medications (includes all prescriptions, OTC, herbals, cannabis, and nutritional supplements).: Yes
--- NOTE | 2024-07-08 19:42 | ECG_ITS ---
Test Date: 2024-07-08 22:28:57 Measurements Intervals T[place]ill Rate: 96 P: 0 OH: 0 QRS: 75 QRSD: 95 T: 264 QT: 360 QTc: 455 Interpretive Statements ATRIAL FIBRILLATION WITH ABERRANT CONDUCTION OR VENTRICULAR PREMATURE COMPLEXES LOW QRS VOLTAGE IN EXTREMITY LEADS [QRS DEFLECTION < 0.5 mV IN LIMB LEADS] POSSIBLE ANTERIOR MYOCARDIAL INFARCTION [30 ms Q WAVE IN V3/V4, OR R < 0.2 mV IN V4], PROBABLY OLD ABNORMAL RHYTHM ECG WARNING: DATA QUALITY MAY AFFECT INTERPRETATION Compared to ECG 07/08/2024 15:02:02 Ventricular premature complex(es) now present Aberrant conduction of supraventricular beat(s) now present Myocardial infarct finding now present T-wave abnormality no longer present Electronically Signed On 07-09-2024 09:53:27 GEOCHEMICAL MANAGER by James Romo M.D.
[2024-07-08] MEDS: carvediloL 3.125 MG TABLET PO (21:14)
[2024-07-08] MEDS: FUROSEMIDE 40 MG TABLET PO (21:14)
[2024-07-08] MEDS: APIXABAN 2.5 MG TABLET PO (21:14)
[2024-07-08] MEDS: SACUBITRIL/VALSARTAN 24-26 MG TABLET 1 TAB PO (21:14)
[2024-07-08 21:42] LABS: Troponin I < 0.012 ng/mL (0.000-0.034)
[2024-07-08] MEDS: ALBUMIN HUMAN 25% 25 GM/100 ML 200 ML IVPB (21:43)
[2024-07-08] MEDS: IPRATROPIUM 0.5 MG/ALBUTEROL SULFATE 2.5 MG AMPUL.NEB 3 ML INHALATION (21:54)
[2024-07-09] VITALS (34 sets, daily range): BP systolic 89–133; BP diastolic 50–90; PULSE 61–152; RESP 20–24; TEMP 36.3–36.7; O2SAT 90–99
[2024-07-09] MEDS: IPRATROPIUM 0.5 MG/ALBUTEROL SULFATE 2.5 MG AMPUL.NEB 3 ML INHALATION ×5 (02:56→23:53)
[2024-07-09] MEDS: methylPREDNISolone SOD SUCC 125 MG VIAL IV PUSH (03:26)
[2024-07-09 05:15] LABS: Basophils Absolute Auto 0.1 K/mm3 (0.0-0.1); Basophils Percent Auto 0.6 % (0.2-1.2); Eosinophils Percent Auto 0.5 % (0-4.4); Hematocrit 39.6 % (42.0-52.0); Hemoglobin 12.8 g/dL (14.0-18.0); Immature Granulocyte Absolute 0.03 K/mm3 (0.00-0.031); Immature Granulocyte Percent A 0.4 % (0-0.5); Lymphocytes Absolute Auto 0.86 K/mm3 (0.9-3.2); Lymphocytes Percent Auto 10.9 % (18.3-44.2); Mean Corpuscular HGB Conc 32.3 g/dl (32-36); Mean Corpuscular Hemoglobin 29.7 pg (26-34); Mean Corpuscular Volume 91.9 fl (80-100); Mean Platelet Volume 10.4 fl (7.4-10.4); Monocytes Absolute Auto 0.3 K/mm3 (0.1-0.6); Monocytes Percent Auto 4.2 % (2.6-8.5); Neutrophils Absolute Auto 6.6 K/mm3 (1.3-6.7); Neutrophils Percent Auto 83.4 % (45.5-73.1); Platelet Count Result 196 k/mm3 (150-375); Red Blood Count 4.31 M/mm3 (4.6-6.20); Red Cell Distribution Width 13.5 % (11.5-14.5); White Blood Count 7.9 K/mm3 (4.5-10.0)
[2024-07-09 05:29] LABS: Alanine Aminotransferase 27 U/L (6-50); Albumin Level 4.7 g/dL (3.5-5.1); Alkaline Phosphatase 35 U/L (38-126); Anion Gap 11 mmol/L (4-12); Aspartate Amino Transferase 40 U/L (17-59); Bilirubin,Total 4.9 mg/dL (0.2-1.3); Blood Urea Nitrogen 44 mg/dL (9-20); Calcium 8.9 mg/dL (8.4-10.2); Carbon Dioxide 24 mmol/L (22-30); Chloride 102 mmol/L (98-107); Estimated CRCL calculation 28 ml/min; Estimated Glomerular Filt Rate 33; Glucose 99 mg/dL (65-110); Magnesium 1.7 mg/dL (1.6-2.3); Potassium 4.9 mmol/L (3.4-5.0); Sodium 137 mmol/L (137-145)
[2024-07-09 05:34] LABS: NT Pro B Type Natriuretic Pept 10900 pg/mL (19.9-100)
[2024-07-09] MEDS: ALPRAZolam (*CRX) 0.25 MG TABLET PO (05:51)
[2024-07-09] MEDS: carvediloL 3.125 MG TABLET PO (06:11)
[2024-07-09] MEDS: FLUTICASONE/UMECLIDIN/VILANTER 100-62.5-25 MCG ELLIPTA 1 PUFF INHALATION (08:23)
[2024-07-09] MEDS: FUROSEMIDE 40 MG TABLET PO (08:51)
[2024-07-09] MEDS: APIXABAN 2.5 MG TABLET PO (08:51)
[2024-07-09] MEDS: SACUBITRIL/VALSARTAN 24-26 MG TABLET 1 TAB PO ×2 (08:51→20:15)
[2024-07-09] MEDS: dilTIAZem 100 MG/100 ML 100 MG/100 ML BAG 10 MG IV CONT (08:54)
--- NOTE | 2024-07-09 10:05 | PM.CNCAR ---
Assessment and Plan Assessment and plan (1) Atrial fibrillation with rapid ventricular response: Code(s): I48.91 - Unspecified atrial fibrillation Status: Acute Assessment and Plan: Atrial fibrillation with RVR in the setting of decompensated heart failure. In light of his severe cardiomyopathy, diltiazem should be avoided if possible. Wean diltiazem drip and shift coreg to metoprolol for better rate control Continue anticoagulation with apixaban. Increase dose to 5mg b.i.d., he does not meet criteria for renal dose adjustment based on age and weight (2) Acute on chronic heart failure with reduced ejection fraction and diastolic dysfunction: Code(s): I50.43 - Acute on chronic combined systolic (congestive) and diastolic (congestive) heart failure Status: Acute Assessment and Plan: Secondary to missing doses of furosemide. Improving with IV diuresis which should be continued for now. (3) Ischemic cardiomyopathy with implantable cardioverter-defibrillator (ICD): Code(s): I25.5 - Ischemic cardiomyopathy; Z95.810 - Presence of automatic (implantable) cardiac defibrillator Status: Acute Assessment and Plan: Interrogate device History of Present Illness History of Present Illness Consult date/time: 07/09/24 10:05 Requesting physician: Armani Gallardo MD Consult reason: atrial fibrillation Reason For Visit: AFib with RVR, weakness Narrative: Karin Jackson is a 71 year old male with severe nonischemic cardiomyopathy, ICD, paroxysmal atrial fibrillation, hypertension, hyperlipidemia, and COPD. He comes to the hospital with a chief complaint of palpitations. He states that he started feeling palpitations about 3 days prior to his presentation to the hospital. He was found to be in atrial fibrillation with rapid ventricular response, rate in the 160s when he initially presented to the emergency department. He has been admitted to the hospital and placed on a diltiazem drip which has been successful at controlling his rate. Although he is no longer feeling palpitations he does complain shortness of breath. He states that he had missed some furosemide doses at home prior to coming to hospital. Review of Systems Review of Systems: All systems reviewed & are unremarkable except as noted in HPI and below PMFSH Past Medical History Medical History Acute kidney injury Acute on chronic heart failure with reduced ejection fraction and diastolic dysfunction Afib Atrial fibrillation with RVR BMI 24.0-24.9, adult BPH without obstruction/lower urinary tract symptoms PSA 2.1 on 12/13/2023. BPPV (benign paroxysmal positional vertigo) CAD (coronary artery disease) acute VA with stents. CHF (congestive heart failure) Chronic anxiety Chronic atrial fibrillation Chronic kidney disease (CKD) stage G3a/A2, moderately decreased glomerular filtration rate (GFR) between 45-59 mL/min/1.73 square meter and albuminuria creatinine ratio between 30-299 mg/g (~12/13/23) BUN 28, creatinine 1.40 with GFR 49 on 12/13/2023. BUN 26, creatinine 1.3 with GFR 54 on 04/27/2024. Chronic low back pain with right-sided sciatica x-ray of the lumbar spine on 09/18/2023 reveals mild degenerative changes of the lumbar spine COPD (chronic obstructive pulmonary disease) COVID-19 Current use of causticiser anticoagulation Dizziness Elevated LFTs Elevated troponin Encounter for prostate cancer screening PSA 2.1 on 12/13/2023. GERD (gastroesophageal reflux disease) Heart disease History of malignant melanoma right forearm with wide excision 2020 HLD (hyperlipidemia) HTN (hypertension) Iron deficiency anemia Iron 116 with 32% saturation and ferritin 71.5 with hemoglobin 15.2 on 12/13/2023. Ischemic cardiomyopathy with implantable cardioverter-defibrillator (ICD) Recent ejection fraction of 15%. Echo 02/21/2024 with severe global left ventricular hypokinesis with ejection fraction of 25% with moderate mitral valve regurgitation. Echo with ejection fraction 25% and grade 2 diastolic dysfunction on 04/30/2024. Mixed hyperlipidemia Cholesterol 243, triglycerides 123, HDL 52, LDL 139 on 12/13/2023. Cholesterol 226, triglycerides 116, HDL 42, LDL 145 on 04/27/2024. Pacemaker Seasonal allergic rhinitis Skin cancer Transaminitis Family History Family History Father Heart disease Other Cerebrovascular accident Mother Kidney failure Heart disease Acute myocardial infarction Social History Social History Social History: Patient lives on his own. He denies having any children or pets. Jorge his brother is his surrogate. and he wishes to be a full code. Smoking packs per day: 0.5 Smoking cigarettes per day: 10.0 Years smoked: 18 Smoking pack-years: 9.00 Smoking status: Former smoker Tobacco type: cigarettes Second hand tobacco smoke exposure: No Smoking end date: 07/08/14 Alcohol intake: never Drinks per week: 2 Alcohol use details: beer Substance use: never Substance use type: does not use Do You Feel Safe in your Home?: Yes Lack of Transportation: No Lack of Food: Never True Current Housing: I Have Housing Concerned About Future Housing: No Difficulty Paying Gas/Electric Bills: No Difficulty Paying for Meds: No Currently Unemployed: No Education: High School Diploma/GED Difficulty w/ Childcare or Family Care: No Living arrangements: alone Gender identity (if verbalized by the patient): Male Sexual Orientation (if Verbalized by the Patient): Straight or Heterosexual Spiritual care concerns: No Agree to blood products: Yes Meds Home Medications and Allergies Home Medications Medication Instructions Recorded Confirmed Type carvedilol 3.125 mg tablet (Coreg) 3.125 mg PO Q12HR 30 days #60 tabs 02/19/22 07/08/24 Rx sacubitril 24 mg-valsartan 26 mg 1 tablet PO Q12HR 30 days #60 tabs 02/19/22 07/08/24 Rx tablet (Entresto) apixaban 2.5 mg tablet (Eliquis) 2.5 mg PO BID 09/18/23 07/08/24 History furosemide 40 mg tablet 40 mg PO DAILY #30 tabs 05/04/24 07/08/24 Rx albuterol sulfate 90 mcg/actuation 2 puff inhalation QID PRN 06/12/24 07/08/24 Rx aerosol inhaler shortness of breath or wheezing #8.5 grams Allergies Allergy/AdvReac Type Severity Reaction Status Date / Time codeine AdvReac Mild HALLUCINATI Verified 04/29/24 12:07 ONS Vital Signs Vital Signs - 24 hr 07/08/24 15:00 07/08/24 15:07 07/08/24 15:10 Temperature 36.6 C Pulse Rate 178 H 178 H 174 H Respiratory Rate 17 Blood Pressure 116/87 Pulse Oximetry Oxygen Delivery Oxygen Flow Rate 07/08/24 15:26 07/08/24 16:07 07/08/24 15:30 Temperature Pulse Rate 111 H 86 Respiratory Rate 14 Blood Pressure 94/64 L 98/73 L Pulse Oximetry 94 98 Oxygen Delivery Nasal Cannula Oxygen Flow Rate 2 07/08/24 17:11 07/08/24 15:26 07/08/24 15:31 Temperature Pulse Rate 85 114 H 91 Respiratory Rate 18 13 19 Blood Pressure 108/71 94/64 L 93/73 L Pulse Oximetry 99 98 Oxygen Delivery Oxygen Flow Rate 07/08/24 15:38 07/08/24 17:40 07/08/24 17:35 Temperature 36.0 C L Pulse Rate 89 93 92 Respiratory Rate 11 L 20 22 H Blood Pressure 98/73 L 97/68 L Pulse Oximetry 97 100 Oxygen Delivery Oxygen Flow Rate 07/08/24 18:00 07/08/24 20:00 07/08/24 21:14 Temperature 36.2 C L Pulse Rate 90 61 101 H Respiratory Rate 20 Blood Pressure 125/98 H Pulse Oximetry 91 Oxygen Delivery Oxygen Flow Rate 07/08/24 21:34 07/08/24 21:34 07/08/24 21:54 Temperature Pulse Rate 103 H 103 H 95 Respiratory Rate 20 Blood Pressure Pulse Oximetry Oxygen Delivery Oxygen Flow Rate 07/08/24 21:57 07/08/24 22:05 07/08/24 22:00 Temperature 36.3 C L Pulse Rate 105 H 110 H 111 H Respiratory Rate 20 20 Blood Pressure 103/70 Pulse Oximetry 95 91 Oxygen Delivery Nasal Cannula Oxygen Flow Rate 2 07/08/24 20:00 07/08/24 22:00 07/08/24 20:00 Temperature Pulse Rate 111 H 61 Respiratory Rate Blood Pressure 103/70 125/98 H Pulse Oximetry 99 Oxygen Delivery Nasal Cannula Oxygen Flow Rate 2 07/08/24 20:00 07/08/24 22:00 07/09/24 00:00 Temperature 36.4 C Pulse Rate 87 102 H 61 Respiratory Rate 24 H Blood Pressure 117/90 Pulse Oximetry 90 Oxygen Delivery Oxygen Flow Rate 07/09/24 00:00 07/09/24 00:00 07/09/24 01:58 Temperature Pulse Rate 88 87 Respiratory Rate Blood Pressure 100/50 L Pulse Oximetry 90 91 Oxygen Delivery Nasal Cannula Oxygen Flow Rate 2 07/09/24 00:00 07/09/24 02:00 07/09/24 02:00 Temperature Pulse Rate 61 87 100 Respiratory Rate Blood Pressure 117/90 100/50 L Pulse Oximetry Oxygen Delivery Oxygen Flow Rate 07/09/24 02:45 07/09/24 03:33 07/09/24 03:38 Temperature 36.4 C L Pulse Rate 96 100 107 H Respiratory Rate 20 22 H Blood Pressure 89/57 L 89/57 L Pulse Oximetry 98 Oxygen Delivery Oxygen Flow Rate 07/09/24 04:00 07/09/24 05:00 07/09/24 04:00 Temperature Pulse Rate 124 H 89 Respiratory Rate Blood Pressure 133/78 Pulse Oximetry 98 Oxygen Delivery Nasal Cannula Oxygen Flow Rate 2 07/09/24 06:11 07/09/24 06:00 07/09/24 06:00 Temperature Pulse Rate 144 H 117 H 88 Respiratory Rate 20 Blood Pressure 107/75 107/75 Pulse Oximetry 97 Oxygen Delivery Oxygen Flow Rate 07/09/24 06:00 07/09/24 08:00 07/09/24 07:50 Temperature 36.3 C L Pulse Rate 88 139 H 136 H Respiratory Rate 22 H Blood Pressure 125/82 125/82 Pulse Oximetry 96 Oxygen Delivery Oxygen Flow Rate 07/09/24 08:23 07/09/24 08:54 07/09/24 09:39 Temperature Pulse Rate 125 H 115 H 111 H Respiratory Rate 20 Blood Pressure 125/82 Pulse Oximetry 95 Oxygen Delivery Nasal Cannula Oxygen Flow Rate 2 07/09/24 10:00 Temperature 36.5 C Pulse Rate 113 H Respiratory Rate 22 H Blood Pressure 104/70 Pulse Oximetry 95 Oxygen Delivery Oxygen Flow Rate Exam Const: General: comfortable, no acute distress, alert and awake Orientation/consciousness: patient oriented x3 HENMT: Head: normal to inspection Eyes: General: appearance normal, both eyes and all related structures Pupils: Equal, round and reactive pupils present Neck: Neck: normal visual inspection, supple and no JVD Carotids: normal carotid upstroke Resp: Effort & Inspection: normal respiratory effort Auscultation: not clear to auscultation bilaterally and rales Cardio: Rate: regular rate Rhythm: abnormal rhythm irregularly irregular Heart sounds: S1 normal heart sound present, S2 normal heart sound present and no murmurs GI: Auscultation: normal bowel sounds Skin: General skin exam: normal color Neuro: General: patient oriented x3 Cranial nerves: Yes Equal, round and reactive pupils present Extrem: General: normal to inspection Psych: Appearance: grossly normal Mental Status: mental status grossly normal Results Labs and Meds 07/09/24 04:54 07/09/24 04:54 Lab results: Cardiac Enzymes 07/08/24 07/08/24 07/09/24 Range/Units 15:09 21:02 04:54 AST 36 40 (17-59) U/L Troponin I < 0.012 < 0.012 (0.000-0.034) ng/mL Coagulation 07/08/24 Range/Units 15:09 PT 17.1 H (11.1-14.7) Seconds APTT 32.2 (22.3-36.8) Seconds CBC 07/08/24 07/09/24 Range/Units 15:09 04:54 WBC 8.1 7.9 (4.5-10.0) K/mm3 RBC 5.49 4.31 L (4.6-6.20) M/mm3 Hgb 16.1 12.8 L D (14.0-18.0) g/dL Hct 50.8 39.6 L (42.0-52.0) % Plt Count 278 196 (150-375) k/mm3 Lymph # (Auto) 1.88 0.86 L (0.9-3.2) K/mm3 [place] # (Auto) 0.4 0.3 (0.1-0.6) K/mm3 Eos # (Auto) 0.1 0.0 (0-0.3) K/mm3 Baso # (Auto) 0.1 0.1 (0.0-0.1) K/mm3 Comprehensive Metabolic Panel 07/08/24 07/08/24 07/09/24 Range/Units 15:09 18:26 04:54 Sodium 139 138 137 (137-145) mmol/L Potassium 5.5 H 5.3 H 4.9 (3.4-5.0) mmol/L Chloride 102 104 102 (98-107) mmol/L Carbon Dioxide 25 24 24 (22-30) mmol/L BUN 40 H 41 H 44 H (9-20) mg/dL Creatinine 2.20 H 2.10 H 2.00 H (0.7-1.3) mg/dL Glucose 136 H 128 H 99 (65-110) mg/dL Calcium 9.9 9.3 8.9 (8.4-10.2) mg/dL AST 36 40 (17-59) U/L ALT 23 27 (6-50) U/L Alkaline Phosphatase 51 35 L (38-126) U/L Total Protein 9.0 H 8.0 (6.3-8.2) g/dL Albumin 5.2 H 4.7 (3.5-5.1) g/dL Intake and Output 07/08/24 07/09/24 07/09/24 23:59 07:59 15:59 Intake Total 1029.4 242.4 240 Output Total 320 Balance 1029.4 -77.6 240 Intake: IV 1029.4 242.4 Sodium Chloride 0.9% IV 1,000 1000 ml @ 999 mls/hr IV CONT .Q1H1M STA Rx#:[id number] dilTIAZem 100 MG/100 ML 100 mg 29.4 42.4 In 100 ml @ 5 MG/HR 5 mls/hr IV CONT .Q20H TJ Rx#:[id number] Albumin Human 25% 25 gm/100 ml 200 200 ml @ 60 mls/hr IVPB ONCE ONE Rx#:[id number] Oral 240 Output: Urine 320 Patient Weight 07/09/24 23:59 Weight 69 kg
[2024-07-09] MEDS: MAGNESIUM SULF 2 GM/WATER 50ML 2 GM/50 ML BAG IVPB (11:04)
[2024-07-09] MEDS: MAG HYDROX/AL HYDROX/SIMETH 30 ML UDC PO (11:04)
[2024-07-09] MEDS: FUROSEMIDE INJ 40 MG/4 ML VIAL IV PUSH ×2 (11:07→17:53)
[2024-07-09] MEDS: METOPROLOL TARTRATE 25 MG TABLET PO ×3 (11:43→23:37)
--- NOTE | 2024-07-09 12:26 | PM.IMPN ---
Progress Note: A&P Assessment and Plan (1) Elevated bilirubin: Code(s): R17 - Unspecified jaundice Status: Acute (2) Acute kidney injury superimposed on CKD: Code(s): N17.9 - Acute kidney failure, unspecified; N18.9 - Chronic kidney disease, unspecified Status: Acute (3) Acute on chronic heart failure with reduced ejection fraction and diastolic dysfunction: Code(s): I50.43 - Acute on chronic combined systolic (congestive) and diastolic (congestive) heart failure Status: Acute (4) Atrial fibrillation with rapid ventricular response: Code(s): I48.91 - Unspecified atrial fibrillation Status: Acute Plan 73-year-old male with past medical history of severe nonischemic cardiomyopathy, AFib, CKD presented with worsening shortness of breath, AFib with RVR.Emergency department workup showed unremarkable chest x-ray, EKG showed atrial fibrillation with rapid ventricular rate of 166. He received relieved IV metoprolol IV diltiazem and then a diltiazem drip. He also received IV metoclopramide. Labs showed some mild hyperkalemia at 5.5 which went down to 5.3 on repeat draw also noted KENDELL on CKD with creatinine of 2.2 and a BUN of 40 with an estimated GFR of 29. ProBNP with a normal troponin. 1. AFib with RVR+ acute on chronic systolic heart failure: Continue with telemetry monitoring Supplement magnesium Will increase the dose of Cardizem to 10 milligrams/hour Increase the dose of Coreg Will switch Lasix to 40 mg b.i.d. instead of oral Bronchodilators Continue with O2 support Continue with Entresto Cardiology consult Strict I's and O's Daily weight Continue with Eliquis 2. [place] on pre-existing CKD stage 4: Monitor kidney function in setting of IV diuresis Hyperkalemia has resolved Supplement magnesium Recheck BMP in a.m. Avoid further nephrotoxins 3. Elevated total bilirubin: Likely in setting of hepatic congestion Will obtain right upper quadrant ultrasound 4. Code status: Full 5. DVT prophylaxis: On Eliquis 6. Disposition: Pending improvement Time Spent With Patient Time with patient: 25 - 35 minutes Subjective Date/time seen: 07/09/24 12:26 Interval history: Continues to be in AFib with RVR Continues to be short of breath Review of Systems Review of Systems: All systems reviewed & are unremarkable except as noted in HPI and below Exam Narrative: GENERAL: Chronically ill-appearing, deconditioned, mild respiratory distress noted with supplemental oxygen in place HEAD: Normocephalic, atraumatic. ENT:? Mucous membranes moist. No obvious JVD CHEST: Crackles throughout, HEART: Irregularly irregular rhythm, tachycardia present ABDOMEN: Soft, nontender, nondistended. EXTREMITIES: Normal range of motion. No peripheral edema. SKIN: Warm dry normal color NEURO: Alert and oriented x3. PSYCH: Normal mood and affect Objective Data Vital Signs Vital Signs: Vital Signs - 24 hr 07/08/24 15:00 07/08/24 15:07 07/08/24 15:10 Temperature 97.8 F Pulse Rate 178 H 178 H 174 H Respiratory Rate 17 Blood Pressure 116/87 Pulse Oximetry Oxygen Delivery Oxygen Flow Rate 07/08/24 15:26 07/08/24 16:07 07/08/24 15:30 Temperature Pulse Rate 111 H 86 Respiratory Rate 14 Blood Pressure 94/64 L 98/73 L Pulse Oximetry 94 98 Oxygen Delivery Nasal Cannula Oxygen Flow Rate 2 07/08/24 17:11 07/08/24 15:26 07/08/24 15:31 Temperature Pulse Rate 85 114 H 91 Respiratory Rate 18 13 19 Blood Pressure 108/71 94/64 L 93/73 L Pulse Oximetry 99 98 Oxygen Delivery Oxygen Flow Rate 07/08/24 15:38 07/08/24 17:40 07/08/24 17:35 Temperature 96.8 F L Pulse Rate 89 93 92 Respiratory Rate 11 L 20 22 H Blood Pressure 98/73 L 97/68 L Pulse Oximetry 97 100 Oxygen Delivery Oxygen Flow Rate 07/08/24 18:00 07/08/24 20:00 07/08/24 21:14 Temperature 97.2 F L Pulse Rate 90 61 101 H Respiratory Rate 20 Blood Pressure 125/98 H Pulse Oximetry 91 Oxygen Delivery Oxygen Flow Rate 07/08/24 21:34 07/08/24 21:34 07/08/24 21:54 Temperature Pulse Rate 103 H 103 H 95 Respiratory Rate 20 Blood Pressure Pulse Oximetry Oxygen Delivery Oxygen Flow Rate 07/08/24 21:57 07/08/24 22:05 07/08/24 22:00 Temperature 97.4 F L Pulse Rate 105 H 110 H 111 H Respiratory Rate 20 20 Blood Pressure 103/70 Pulse Oximetry 95 91 Oxygen Delivery Nasal Cannula Oxygen Flow Rate 2 07/08/24 20:00 07/08/24 22:00 07/08/24 20:00 Temperature Pulse Rate 111 H 61 Respiratory Rate Blood Pressure 103/70 125/98 H Pulse Oximetry 99 Oxygen Delivery Nasal Cannula Oxygen Flow Rate 2 07/08/24 20:00 07/08/24 22:00 07/09/24 00:00 Temperature 97.6 F Pulse Rate 87 102 H 61 Respiratory Rate 24 H Blood Pressure 117/90 Pulse Oximetry 90 Oxygen Delivery Oxygen Flow Rate 07/09/24 00:00 07/09/24 00:00 07/09/24 01:58 Temperature Pulse Rate 88 87 Respiratory Rate Blood Pressure 100/50 L Pulse Oximetry 90 91 Oxygen Delivery Nasal Cannula Oxygen Flow Rate 2 07/09/24 00:00 07/09/24 02:00 07/09/24 02:00 Temperature Pulse Rate 61 87 100 Respiratory Rate Blood Pressure 117/90 100/50 L Pulse Oximetry Oxygen Delivery Oxygen Flow Rate 07/09/24 02:45 07/09/24 03:33 07/09/24 03:38 Temperature 97.5 F L Pulse Rate 96 100 107 H Respiratory Rate 20 22 H Blood Pressure 89/57 L 89/57 L Pulse Oximetry 98 Oxygen Delivery Oxygen Flow Rate 07/09/24 04:00 07/09/24 05:00 07/09/24 04:00 Temperature Pulse Rate 124 H 89 Respiratory Rate Blood Pressure 133/78 Pulse Oximetry 98 Oxygen Delivery Nasal Cannula Oxygen Flow Rate 2 07/09/24 06:11 07/09/24 06:00 07/09/24 06:00 Temperature Pulse Rate 144 H 117 H 88 Respiratory Rate 20 Blood Pressure 107/75 107/75 Pulse Oximetry 97 Oxygen Delivery Oxygen Flow Rate 07/09/24 06:00 07/09/24 08:00 07/09/24 07:50 Temperature 97.4 F L Pulse Rate 88 139 H 136 H Respiratory Rate 22 H Blood Pressure 125/82 125/82 Pulse Oximetry 96 Oxygen Delivery Oxygen Flow Rate 07/09/24 08:23 07/09/24 08:54 07/09/24 09:39 Temperature Pulse Rate 125 H 115 H 111 H Respiratory Rate 20 Blood Pressure 125/82 Pulse Oximetry 95 Oxygen Delivery Nasal Cannula Oxygen Flow Rate 2 07/09/24 10:00 07/09/24 10:00 07/09/24 11:37 Temperature 97.7 F 98.0 F Pulse Rate 113 H 113 H 112 H Respiratory Rate 22 H 20 Blood Pressure 104/70 104/70 116/79 Pulse Oximetry 95 97 Oxygen Delivery Oxygen Flow Rate 07/09/24 11:30 07/09/24 11:43 07/09/24 08:00 Temperature Pulse Rate 107 H 106 H 127 H Respiratory Rate Blood Pressure 104/70 Pulse Oximetry Oxygen Delivery Oxygen Flow Rate 07/09/24 10:00 07/09/24 08:00 Temperature Pulse Rate 85 Respiratory Rate Blood Pressure Pulse Oximetry 96 Oxygen Delivery Nasal Cannula Oxygen Flow Rate 2 Intake/Output Intake/Output: Intake & Output 07/06/24 07/07/24 07/08/24 07/09/24 23:59 23:59 23:59 23:59 Intake Total 1029.4 508.4 Output Total 320 Balance 1029.4 188.4 Meds/Results Medications: Active Medications Generic Name Dose Route Start Last Admin Trade Name Freq PRN Reason Stop Dose Admin Al Hydrox/Mg Hydrox/Simethicone 30 ml 07/09/24 10:54 07/09/24 11:04 Mag Hydrox/Al Hydrox/Simeth 30 Ml Udc PO 30 ml Q4H PRN Administration Heartburn Albuterol 2 puff 07/08/24 19:39 Albuterol Sulfate (*Sp) Aerosol 1 Puff INHALATION QID PRN shortness of breath or wheezing Albuterol/Ipratropium 3 ml 07/09/24 08:00 07/09/24 08:23 Ipratropium 0.5 Mg/Albuterol Sulfate 2.5 Mg Ampul.Neb 3 Ml INHALATION 3 ml Q4HRT TJ Administration Apixaban 2.5 mg 07/08/24 21:00 07/09/24 08:51 Apixaban 2.5 Mg Tablet PO 2.5 mg Q12HR TJ Administration Fluticasone/Umeclidinium/Vilanterol 1 puff 07/09/24 08:00 07/09/24 08:23 Fluticasone/Umeclidin/Vilanter 100-62.5-25 Mcg Ellipta INHALATION 1 puff DAILYRT TJ Administration Furosemide 40 mg 07/09/24 09:45 07/09/24 11:07 Furosemide Inj 40 Mg/4 Ml Vial IV PUSH 40 mg BID TJ Administration Diltiazem HCl 100 mg in 100 mls @ 5 mls/hr 07/09/24 08:05 07/09/24 11:30 Cardizem 100 Mg/100 Ml IV CONT 5 mg/hr .Q20H TJ 5 mls/hr Infusion 5 MG/HR Metoprolol Tartrate 25 mg 07/09/24 12:00 07/09/24 11:43 Metoprolol Tartrate 25 Mg Tablet PO 25 mg Q8HR TJ Administration Ondansetron HCl 4 mg 07/08/24 16:28 Ondansetron Inj 4 Mg/2 Ml Vial IV PUSH Q4H PRN Nausea Sacubitril/Valsartan 1 tab 07/08/24 21:00 07/09/24 08:51 Sacubitril/Valsartan 24-26 Mg Tablet PO 1 tab Q12HR TJ Administration Radiology Results: ITS Impressions Chest X-Ray 07/08/24 16:14 Impression: 1: No acute cardiopulmonary disease. Labs Labs: Laboratory Results - last 24 hr 07/08/24 07/08/24 07/08/24 15:03 15:09 15:09 WBC 8.1 RBC 5.49 Hgb 16.1 Hct 50.8 MCV 92.5 MCH 29.3 MCHC 31.7 L RDW 13.5 Plt Count 278 MPV 10.3 Immature Gran % (Auto) 0.4 Neut % (Auto) 69.5 Lymph % (Auto) 23.2 [place] % (Auto) 4.8 Eos % (Auto) 1.4 Baso % (Auto) 0.7 Lymph # (Auto) 1.88 [place] # (Auto) 0.4 Eos # (Auto) 0.1 Baso # (Auto) 0.1 Abs Immat Gran (auto) 0.03 Absolute Neuts (auto) 5.6 Absolute Nucleated RBC 0.000 Nucleated RBC % 0.0 PT 17.1 H INR 1.3 APTT 32.2 D-Dimer Cancelled Puncture Site Right brachial ABG pH 7.422 ABG pCO2 30.5 L ABG pO2 84.4 ABG PO2/FiO2 Ratio 4.02 ABG HCO3 19.4 L ABG O2 Saturation 96.7 ABG O2 Content 20.3 ABG Base Excess -3.7 A-a Gradient 28.8 Oxyhemoglobin 95.5 Carboxyhemoglobin 0.9 Methemoglobin 0.1 Reduced Hemoglobin 3.5 Total Hemoglobin 15.1 O2 Delivery Device Room air O2 Liters/Min Not Reportable FiO2 21 Sodium 139 Potassium 5.5 H Chloride 102 Carbon Dioxide 25 Anion Gap 12 BUN 40 H Creatinine 2.20 H Estim Creat Clear Calc 26 Estimated GFR 29 L Glucose 136 H Calcium 9.9 Magnesium 1.9 Cancelled Total Bilirubin 4.1 H AST 36 ALT 23 Alkaline Phosphatase 51 Troponin I < 0.012 NT-Pro-B Natriuret Pep 96845 H Total Protein 9.0 H Albumin 5.2 H 07/08/24 07/08/24 07/09/24 18:26 21:02 04:54 WBC 7.9 RBC 4.31 L Hgb 12.8 L D Hct 39.6 L MCV 91.9 MCH 29.7 MCHC 32.3 RDW 13.5 Plt Count 196 MPV 10.4 Immature Gran % (Auto) 0.4 Neut % (Auto) 83.4 H Lymph % (Auto) 10.[address] [place] % (Auto) 4.2 Eos % (Auto) 0.5 Baso % (Auto) 0.6 Lymph # (Auto) 0.[address] [place] # (Auto) 0.3 Eos # (Auto) 0.0 Baso # (Auto) 0.1 Abs Immat Gran (auto) 0.03 Absolute Neuts (auto) 6.6 Absolute Nucleated RBC 0.000 Nucleated RBC % 0.0 PT INR APTT D-Dimer Puncture Site ABG pH ABG pCO2 ABG pO2 ABG PO2/FiO2 Ratio ABG HCO3 ABG O2 Saturation ABG O2 Content ABG Base Excess A-a Gradient Oxyhemoglobin Carboxyhemoglobin Methemoglobin Reduced Hemoglobin Total Hemoglobin O2 Delivery Device O2 Liters/Min FiO2 Sodium 138 137 Potassium 5.3 H 4.9 Chloride 104 102 Carbon Dioxide 24 24 Anion Gap 10 11 BUN 41 H 44 H Creatinine 2.10 H 2.00 H Estim Creat Clear Calc 27 28 Estimated GFR 31 L 33 L Glucose 128 H 99 Calcium 9.3 8.9 Magnesium 1.7 Total Bilirubin 4.9 H AST 40 ALT 27 Alkaline Phosphatase 35 L Troponin I < 0.012 NT-Pro-B Natriuret Pep 55721 H Total Protein 8.0 Albumin 4.7 Quality VTE Prophylaxis VTE prophylaxis: pharmacologic ordered
--- NOTE | 2024-07-09 15:16 | PCPTNOTE ---
attempted PT eval, per RN pt is leaving room for ultrasound, will follow
[2024-07-09] MEDS: APIXABAN 2.5 MG TABLET 5 MG PO (20:15)
[2024-07-09] MEDS: PANTOPRAZOLE 40 MG TABLET PO (23:37)
[2024-07-10] VITALS (35 sets, daily range): BP systolic 81–113; BP diastolic 58–79; PULSE 80–161; RESP 1–22; TEMP 36.3–36.6; O2SAT 93–100
[2024-07-10] MEDS: IPRATROPIUM 0.5 MG/ALBUTEROL SULFATE 2.5 MG AMPUL.NEB 3 ML INHALATION ×2 (03:56→06:55)
[2024-07-10 04:08] LABS: Hematocrit 38.2 % (42.0-52.0); Hemoglobin 12.1 g/dL (14.0-18.0); Immature Granulocyte Absolute 0.03 K/mm3 (0.00-0.031); Immature Granulocyte Percent A 0.3 % (0-0.5); Lymphocytes Absolute Auto 0.62 K/mm3 (0.9-3.2); Lymphocytes Percent Auto 6.3 % (18.3-44.2); Mean Corpuscular HGB Conc 31.7 g/dl (32-36); Mean Corpuscular Hemoglobin 30.4 pg (26-34); Monocytes Absolute Auto 0.4 K/mm3 (0.1-0.6); Monocytes Percent Auto 4.2 % (2.6-8.5); Neutrophils Absolute Auto 8.8 K/mm3 (1.3-6.7); Neutrophils Percent Auto 89.2 % (45.5-73.1); Platelet Count Result 188 k/mm3 (150-375); Red Blood Count 3.98 M/mm3 (4.6-6.20); Red Cell Distribution Width 14.3 % (11.5-14.5); White Blood Count 9.8 K/mm3 (4.5-10.0)
[2024-07-10] MEDS: METOPROLOL TARTRATE INJ 5 MG/5 ML VIAL IV PUSH (04:20)
[2024-07-10 04:22] LABS: Alanine Aminotransferase 30 U/L (6-50); Albumin Level 4.2 g/dL (3.5-5.1); Alkaline Phosphatase 42 U/L (38-126); Anion Gap 9 mmol/L (4-12); Aspartate Amino Transferase 33 U/L (17-59); Bilirubin,Total 3.7 mg/dL (0.2-1.3); Blood Urea Nitrogen 54 mg/dL (9-20); Calcium 8.6 mg/dL (8.4-10.2); Carbon Dioxide 28 mmol/L (22-30); Chloride 99 mmol/L (98-107); Estimated CRCL calculation 30 ml/min; Estimated Glomerular Filt Rate 35; Glucose 153 mg/dL (65-110); Magnesium 2.3 mg/dL (1.6-2.3); Potassium 4.2 mmol/L (3.4-5.0); Sodium 136 mmol/L (137-145)
--- NOTE | 2024-07-10 06:23 | PC.NURSE ---
This RN did not administer 0600 PO metoprolol due to systolic BP <90. Providers aware of decreased BP, and patient remains asymptomatic. Will update day RN.
[2024-07-10] MEDS: FLUTICASONE/UMECLIDIN/VILANTER 100-62.5-25 MCG ELLIPTA 1 PUFF INHALATION (06:55)
--- NOTE | 2024-07-10 07:39 | P.PNCA_ITS ---
Progress Note: A&P Assessment and Plan (1) Atrial fibrillation with rapid ventricular response: Code(s): I48.91 - Unspecified atrial fibrillation Status: Acute Assessment and Plan: Atrial fibrillation with RVR in the setting of decompensated heart failure. * Remains tachycardic despite increasing dose of metoprolol * As he is now hypotensive and not responding well to metoprolol, will shift him to amiodarone. Given his severe cardiomyopathy he would benefit from being in sinus rhythm. I discussed this with him including small risk for CVA if he does chemically cardiovert. Also discussed possible need for DCCV if amiodarone isn't effective. Will keep him NPO for this. Would need anesthesia support, poss. HIWOT as well. Will discuss with Dr. Vazquez * Continue anticoagulation with apixaban 5mg p.o. b.i.d. (2) Acute on chronic heart failure with reduced ejection fraction and diastolic dysfunction: Code(s): I50.43 - Acute on chronic combined systolic (congestive) and diastolic (congestive) heart failure Status: Acute Assessment and Plan: Secondary to missing doses of furosemide. Improved with IV diuresis. Looks euvolemic at this point. Will shift back to p.o. furosemide. (3) Ischemic cardiomyopathy with implantable cardioverter-defibrillator (ICD): Code(s): I25.5 - Ischemic cardiomyopathy; Z95.810 - Presence of automatic (implantable) cardiac defibrillator Status: Acute Assessment and Plan: Interrogate device Subjective Date/time seen: 07/10/24 07:39 Interval history: Cardiology follow up for atrial fibrillation, CHF Date of service 07/10/2024: He reports feeling better this morning in terms of his breathing - he is able to lay flat, no shortness of breath. His heart rate remains elevated despite increasing dose of metoprolol and he is now hypot ensive. At the time of my evaluation he does not have any active complaints aside from feeling fatigued. Review of Systems Review of Systems: All systems reviewed & are unremarkable except as noted in HPI and below Exam Const: General: comfortable, no acute distress, alert and awake Orientation/consciousness: patient oriented x3 HENMT: Head: normal to inspection Eyes: General: appearance normal, both eyes and all related structures Pupils: Equal, round and reactive pupils present Neck: Neck: normal visual inspection, supple and no JVD Carotids: normal carotid upstroke Resp: Effort & Inspection: normal respiratory effort Auscultation: clear to auscultation bilaterally Other: Able to lie flat Cardio: Rate: tachycardic Rhythm: abnormal rhythm irregularly irregular Heart sounds: S1 normal heart sound present, S2 normal heart sound present and no murmurs GI: Auscultation: normal bowel sounds Skin: General skin exam: normal color Neuro: General: patient oriented x3 Cranial nerves: Yes Equal, round and reactive pupils present Extrem: General: normal to inspection Psych: Appearance: grossly normal Mental Status: mental status grossly normal Objective Data Vital Signs Vital Signs: Vital Signs - 24 hr 07/09/24 08:00 07/09/24 07:50 07/09/24 08:23 Temperature 36.3 C L Pulse Rate 139 H 136 H 125 H Respiratory Rate 22 H 20 Blood Pressure 125/82 125/82 Pulse Oximetry 96 Oxygen Delivery Oxygen Flow Rate 07/09/24 08:54 07/09/24 09:39 07/09/24 10:00 Temperature 36.5 C Pulse Rate 115 H 111 H 113 H Respiratory Rate 22 H Blood Pressure 125/82 104/70 Pulse Oximetry 95 95 Oxygen Delivery Nasal Cannula Oxygen Flow Rate 2 07/09/24 10:00 07/09/24 11:37 07/09/24 11:30 Temperature 36.7 C Pulse Rate 113 H 112 H 107 H Respiratory Rate 20 Blood Pressure 104/70 116/79 104/70 Pulse Oximetry 97 Oxygen Delivery Oxygen Flow Rate 07/09/24 11:43 07/09/24 08:00 07/09/24 10:00 Temperature Pulse Rate 106 H 127 H 85 Respiratory Rate Blood Pressure Pulse Oximetry Oxygen Delivery Oxygen Flow Rate 07/09/24 08:00 07/09/24 12:00 07/09/24 12:00 Temperature Pulse Rate 112 H Respiratory Rate Blood Pressure 116/79 Pulse Oximetry 96 97 Oxygen Delivery Nasal Cannula Nasal Cannula Oxygen Flow Rate 2 2 07/09/24 12:00 07/09/24 14:00 07/09/24 14:00 Temperature 36.4 C L Pulse Rate 101 H 95 95 Respiratory Rate 20 Blood Pressure 112/74 112/74 Pulse Oximetry 99 Oxygen Delivery Oxygen Flow Rate 07/09/24 12:45 07/09/24 12:55 07/09/24 15:37 Temperature 36.6 C Pulse Rate 97 99 110 H Respiratory Rate 20 20 20 Blood Pressure 106/68 Pulse Oximetry 99 Oxygen Delivery Oxygen Flow Rate 07/09/24 17:52 07/09/24 14:00 07/09/24 16:00 Temperature Pulse Rate 124 H 96 122 H Respiratory Rate Blood Pressure Pulse Oximetry Oxygen Delivery Oxygen Flow Rate 07/09/24 18:00 07/09/24 18:06 07/09/24 16:00 Temperature Pulse Rate 142 H 121 H Respiratory Rate 20 Blood Pressure Pulse Oximetry 99 Oxygen Delivery Nasal Cannula Oxygen Flow Rate 2 07/09/24 19:52 07/09/24 20:00 07/09/24 20:00 Temperature 36.4 C Pulse Rate 152 H 109 H Respiratory Rate 20 Blood Pressure 95/70 L 100/79 Pulse Oximetry 98 99 Oxygen Delivery Nasal Cannula Oxygen Flow Rate 2 07/09/24 20:00 07/09/24 22:00 07/09/24 23:37 Temperature Pulse Rate 105 H 96 110 H Respiratory Rate Blood Pressure Pulse Oximetry Oxygen Delivery Oxygen Flow Rate 07/09/24 23:53 07/10/24 00:04 07/10/24 00:00 Temperature 36.3 C L Pulse Rate 101 H 105 H 113 H Respiratory Rate 20 20 18 Blood Pressure 90/68 L Pulse Oximetry 100 Oxygen Delivery Oxygen Flow Rate 07/10/24 00:00 07/10/24 01:16 07/10/24 03:57 Temperature Pulse Rate 140 H 110 H Respiratory Rate 20 Blood Pressure 102/79 Pulse Oximetry 100 Oxygen Delivery Nasal Cannula Oxygen Flow Rate 2 07/10/24 04:07 07/10/24 04:20 07/09/24 19:00 Temperature Pulse Rate 129 H 148 H 130 H Respiratory Rate 20 Blood Pressure Pulse Oximetry Oxygen Delivery Oxygen Flow Rate 07/10/24 04:00 07/10/24 04:00 07/10/24 00:00 Temperature 36.4 C Pulse Rate 124 H 104 H Respiratory Rate 18 Blood Pressure 113/69 Pulse Oximetry 96 96 Oxygen Delivery Room Air Oxygen Flow Rate 07/10/24 02:00 07/10/24 04:00 07/10/24 06:09 Temperature Pulse Rate 108 H 126 H 122 H Respiratory Rate Blood Pressure 85/64 L Pulse Oximetry Oxygen Delivery Oxygen Flow Rate 07/10/24 06:00 Temperature Pulse Rate 111 H Respiratory Rate Blood Pressure Pulse Oximetry Oxygen Delivery Oxygen Flow Rate Intake/Output Intake/Output: Intake & Output 07/07/24 07/08/24 07/09/24 07/10/24 23:59 23:59 23:59 23:59 Intake Total 1029.4 1035.9 Output Total 920 180 Balance 1029.4 115.9 -180 Meds/Results Medications: Active Medications Generic Name Dose Route Start Last Admin Trade Name Freq PRN Reason Stop Dose Admin Al Hydrox/Mg Hydrox/Simethicone 30 ml 07/09/24 10:54 07/09/24 11:04 Mag Hydrox/Al Hydrox/Simeth 30 Ml Udc PO 30 ml Q4H PRN Administration Heartburn Albuterol 2 puff 07/08/24 19:39 Albuterol Sulfate (*Sp) Aerosol 1 Puff INHALATION QID PRN shortness of breath or wheezing Albuterol/Ipratropium 3 ml 07/09/24 08:00 07/10/24 06:55 Ipratropium 0.5 Mg/Albuterol Sulfate 2.5 Mg Ampul.Neb 3 Ml INHALATION 3 ml Q4HRT TJ Administration Apixaban 5 mg 07/09/24 21:00 07/09/24 20:15 Apixaban 2.5 Mg Tablet PO 5 mg Q12HR TJ Administration Fluticasone/Umeclidinium/Vilanterol 1 puff 07/09/24 08:00 07/10/24 06:55 Fluticasone/Umeclidin/Vilanter 100-62.5-25 Mcg Ellipta INHALATION 1 puff DAILYRT TJ Administration Furosemide 40 mg 07/09/24 09:45 07/09/24 17:53 Furosemide Inj 40 Mg/4 Ml Vial IV PUSH 40 mg BID TJ Administration Metoprolol Tartrate 50 mg 07/10/24 06:00 Metoprolol Tartrate 50 Mg Tab PO Q6H TJ Ondansetron HCl 4 mg 07/08/24 16:28 Ondansetron Inj 4 Mg/2 Ml Vial IV PUSH Q4H PRN Nausea Pantoprazole Sodium 40 mg 07/10/24 09:00 Pantoprazole 40 Mg Tablet PO DAILY TJ Sacubitril/Valsartan 1 tab 07/08/24 21:00 07/09/24 20:15 Sacubitril/Valsartan 24-26 Mg Tablet PO 1 tab Q12HR TJ Administration Radiology Results: ITS Impressions Chest X-Ray 07/08/24 16:14 Impression: 1: No acute cardiopulmonary disease. Upper Quadrant Ultrasound 07/09/24 16:31 IMPRESSION: Fat infiltration. Otherwise, Unremarkable limited ultrasound of the abdomen. Labs Labs: Laboratory Results - last 24 hr 07/10/24 03:36 WBC 9.8 RBC 3.98 L Hgb 12.1 L Hct 38.2 L MCV 96.0 MCH 30.4 MCHC 31.7 L RDW 14.3 Plt Count 188 MPV 11.0 H Immature Gran % (Auto) 0.3 Neut % (Auto) 89.2 H Lymph % (Auto) 6.3 L [place] % (Auto) 4.2 Eos % (Auto) 0.0 Baso % (Auto) 0.0 L Lymph # (Auto) 0.62 L [place] # (Auto) 0.4 Eos # (Auto) 0.0 Baso # (Auto) 0.0 Abs Immat Gran (auto) 0.03 Absolute Neuts (auto) 8.8 H Absolute Nucleated RBC 0.000 Nucleated RBC % 0.0 Sodium 136 L Potassium 4.2 Chloride 99 Carbon Dioxide 28 Anion Gap 9 BUN 54 H D Creatinine 1.90 H Estim Creat Clear Calc 30 Estimated GFR 35 L Glucose 153 H Calcium 8.6 Magnesium 2.3 Total Bilirubin 3.7 H AST 33 ALT 30 Alkaline Phosphatase 42 Total Protein 7.0 Albumin 4.2 Quality VTE Prophylaxis VTE prophylaxis: pharmacologic ordered
[2024-07-10] MEDS: AMIODARONE 150 MG/D5W 100 ML 150 MG/100 ML BAG 600 MG IV CONT (08:12)
[2024-07-10] MEDS: AMIODARONE 360 MG/D5W 200 ML 360 MG/200 ML BAG 33.33 MG IV CONT (08:13)
[2024-07-10] MEDS: FUROSEMIDE 40 MG TABLET PO ×2 (08:17→16:09)
[2024-07-10] MEDS: SACUBITRIL/VALSARTAN 24-26 MG TABLET 1 TAB PO (08:17)
[2024-07-10] MEDS: PANTOPRAZOLE 40 MG TABLET PO (08:18)
[2024-07-10] MEDS: APIXABAN 2.5 MG TABLET 5 MG PO ×2 (08:18→20:49)
--- NOTE | 2024-07-10 09:02 | P.PNIM_ITS ---
Progress Note: A&P Assessment and Plan (1) Elevated bilirubin: Code(s): R17 - Unspecified jaundice Status: Acute (2) Acute kidney injury superimposed on CKD: Code(s): N17.9 - Acute kidney failure, unspecified; N18.9 - Chronic kidney disease, unspecified Status: Acute (3) Acute on chronic heart failure with reduced ejection fraction and diastolic dysfunction: Code(s): I50.43 - Acute on chronic combined systolic (congestive) and diastolic (congestive) heart failure Status: Acute (4) Atrial fibrillation with rapid ventricular response: Code(s): I48.91 - Unspecified atrial fibrillation Status: Acute Plan 73-year-old male with past medical history of severe nonischemic cardiomyopathy, AFib, CKD presented with worsening shortness of breath, AFib with RVR.Emergency department workup showed unremarkable chest x-ray, EKG showed atrial fibrillation with rapid ventricular rate of 166. He received relieved IV metoprolol IV diltiazem and then a diltiazem drip. He also received IV metoclopramide. Labs showed some mild hyperkalemia at 5.5 which went down to 5.3 on repeat draw also noted KEN[place] on CKD with creatinine of 2.2 and a BUN of 40 with an estimated GFR of 29. ProBNP with a normal troponin. 1. AFib with RVR+ acute on chronic systolic heart failure: successfully underwent HIWOT-guided DCCV for atrial fibrillation with RVR Continue with telemetry monitoring Supplement magnesium Continue amiodarone 200 mg p.o. b.i.d. Continue Lasix 40 mg p.o. b.i.d. Bronchodilators Continue with O2 support Continue with Entresto Cardiology consult Strict I's and O's Daily weight Continue with Eliquis 2. [place] on pre-existing CKD stage 4: Monitor kidney function in setting of IV diuresis Hyperkalemia has resolved Supplement magnesium Recheck BMP in a.m. Avoid further nephrotoxins 3. Elevated total bilirubin: Likely in setting of hepatic congestion Will obtain right upper quadrant ultrasound 4. Code status: Full 5. DVT prophylaxis: On Eliquis 6. Disposition: Pending improvement Subjective Date/time seen: 07/10/24 09:02 Interval history: Patient reports having stent that was placed 8-10 years ago at [place]. Around the same time he was placed defibrillator/pacemaker. Patient also has a past medical history of COPD from previous smoking. His last known ejection fraction was less than 15% on April,. Today successfully underwent HIWOT-guided DCCV for atrial fibrillation with RVR Review of Systems Review of Systems: All systems reviewed & are unremarkable except as noted in HPI and below Exam Narrative: GENERAL: Chronically ill-appearing, deconditioned, mild respiratory distress noted with supplemental oxygen in place HEAD: Normocephalic, atraumatic. ENT:? Mucous membranes moist. No obvious JVD CHEST: Crackles throughout, HEART: Irregularly irregular rhythm, tachycardia present ABDOMEN: Soft, nontender, nondistended. EXTREMITIES: Normal range of motion. No peripheral edema. SKIN: Warm dry normal color NEURO: Alert and oriented x3. PSYCH: Normal mood and affect Objective Data Vital Signs Vital Signs: Vital Signs - 24 hr 07/09/24 09:39 07/09/24 10:00 07/09/24 10:00 Temperature 97.7 F Pulse Rate 111 H 113 H 113 H Respiratory Rate 22 H Blood Pressure 104/70 104/70 Pulse Oximetry 95 95 Oxygen Delivery Nasal Cannula Oxygen Flow Rate 2 07/09/24 11:37 07/09/24 11:30 07/09/24 11:43 Temperature 98.0 F Pulse Rate 112 H 107 H 106 H Respiratory Rate 20 Blood Pressure 116/79 104/70 Pulse Oximetry 97 Oxygen Delivery Oxygen Flow Rate 07/09/24 10:00 07/09/24 12:00 07/09/24 12:00 Temperature Pulse Rate 85 112 H Respiratory Rate Blood Pressure 116/79 Pulse Oximetry 97 Oxygen Delivery Nasal Cannula Oxygen Flow Rate 2 07/09/24 12:00 07/09/24 14:00 07/09/24 14:00 Temperature 97.5 F L Pulse Rate 101 H 95 95 Respiratory Rate 20 Blood Pressure 112/74 112/74 Pulse Oximetry 99 Oxygen Delivery Oxygen Flow Rate 07/09/24 12:45 07/09/24 12:55 07/09/24 15:37 Temperature 97.9 F Pulse Rate 97 99 110 H Respiratory Rate 20 20 20 Blood Pressure 106/68 Pulse Oximetry 99 Oxygen Delivery Oxygen Flow Rate 07/09/24 17:52 07/09/24 14:00 07/09/24 16:00 Temperature Pulse Rate 124 H 96 122 H Respiratory Rate Blood Pressure Pulse Oximetry Oxygen Delivery Oxygen Flow Rate 07/09/24 18:00 07/09/24 18:06 07/09/24 16:00 Temperature Pulse Rate 142 H 121 H Respiratory Rate 20 Blood Pressure Pulse Oximetry 99 Oxygen Delivery Nasal Cannula Oxygen Flow Rate 2 07/09/24 19:52 07/09/24 20:00 07/09/24 20:00 Temperature 97.6 F Pulse Rate 152 H 109 H Respiratory Rate 20 Blood Pressure 95/70 L 100/79 Pulse Oximetry 98 99 Oxygen Delivery Nasal Cannula Oxygen Flow Rate 2 07/09/24 20:00 07/09/24 22:00 07/09/24 23:37 Temperature Pulse Rate 105 H 96 110 H Respiratory Rate Blood Pressure Pulse Oximetry Oxygen Delivery Oxygen Flow Rate 07/09/24 23:53 07/10/24 00:04 07/10/24 00:00 Temperature 97.4 F L Pulse Rate 101 H 105 H 113 H Respiratory Rate 20 20 18 Blood Pressure 90/68 L Pulse Oximetry 100 Oxygen Delivery Oxygen Flow Rate 07/10/24 00:00 07/10/24 01:16 07/10/24 03:57 Temperature Pulse Rate 140 H 110 H Respiratory Rate 20 Blood Pressure 102/79 Pulse Oximetry 100 Oxygen Delivery Nasal Cannula Oxygen Flow Rate 2 07/10/24 04:07 07/10/24 04:20 07/09/24 19:00 Temperature Pulse Rate 129 H 148 H 130 H Respiratory Rate 20 Blood Pressure Pulse Oximetry Oxygen Delivery Oxygen Flow Rate 07/10/24 04:00 07/10/24 04:00 07/10/24 00:00 Temperature 97.6 F Pulse Rate 124 H 104 H Respiratory Rate 18 Blood Pressure 113/69 Pulse Oximetry 96 96 Oxygen Delivery Room Air Oxygen Flow Rate 07/10/24 02:00 07/10/24 04:00 07/10/24 06:09 Temperature Pulse Rate 108 H 126 H 122 H Respiratory Rate Blood Pressure 85/64 L Pulse Oximetry Oxygen Delivery Oxygen Flow Rate 07/10/24 06:00 07/10/24 07:56 07/10/24 06:50 Temperature Pulse Rate 111 H 104 H Respiratory Rate 18 Blood Pressure 88/62 L Pulse Oximetry 94 Oxygen Delivery Room Air Oxygen Flow Rate 07/10/24 06:50 07/10/24 07:00 07/10/24 08:12 Temperature Pulse Rate 104 H 107 H 161 H Respiratory Rate 18 20 Blood Pressure 99/65 L Pulse Oximetry Oxygen Delivery Oxygen Flow Rate 07/10/24 08:13 07/10/24 08:19 07/10/24 08:00 Temperature 97.4 F L Pulse Rate 161 H 123 H 130 H Respiratory Rate 22 H Blood Pressure 99/65 L 84/62 L 85/67 L Pulse Oximetry 93 Oxygen Delivery Oxygen Flow Rate Intake/Output Intake/Output: Intake & Output 07/07/24 07/08/24 07/09/24 07/10/24 23:59 23:59 23:59 23:59 Intake Total 1029.4 1035.9 100 Output Total 920 180 Balance 1029.4 115.9 -80 Meds/Results Medications: Active Medications Generic Name Dose Route Start Last Admin Trade Name Freq PRN Reason Stop Dose Admin Al Hydrox/Mg Hydrox/Simethicone 30 ml 07/09/24 10:54 07/09/24 11:04 Mag Hydrox/Al Hydrox/Simeth 30 Ml Udc PO 30 ml Q4H PRN Administration Heartburn Albuterol 2 puff 07/08/24 19:39 Albuterol Sulfate (*Sp) Aerosol 1 Puff INHALATION QID PRN shortness of breath or wheezing Albuterol/Ipratropium 3 ml 07/09/24 08:00 07/10/24 06:55 Ipratropium 0.5 Mg/Albuterol Sulfate 2.5 Mg Ampul.Neb 3 Ml INHALATION 3 ml Q4HRT TJ Administration Apixaban 5 mg 07/09/24 21:00 07/10/24 08:18 Apixaban 2.5 Mg Tablet PO 5 mg Q12HR TJ Administration Fluticasone/Umeclidinium/Vilanterol 1 puff 07/09/24 08:00 07/10/24 06:55 Fluticasone/Umeclidin/Vilanter 100-62.5-25 Mcg Ellipta INHALATION 1 puff DAILYRT TJ Administration Furosemide 40 mg 07/10/24 09:00 07/10/24 08:17 Furosemide 40 Mg Tablet PO 40 mg BID TJ Administration Amiodarone HCl/Dextrose 360 mg in 200 mls @ 33.333 mls/hr 07/10/24 07:50 07/10/24 08:13 Nexterone 360 Mg/D5w 200 Ml IV CONT 07/10/24 13:49 1 mg/min .Q6H ONE 33.33 mls/hr Administration 1 MG/MIN Amiodarone HCl/Dextrose 360 mg in 200 mls @ 16.667 mls/hr 07/10/24 14:00 Nexterone 360 Mg/D5w 200 Ml IV CONT .Q12H TJ 0.5 MG/MIN Ondansetron HCl 4 mg 07/08/24 16:28 Ondansetron Inj 4 Mg/2 Ml Vial IV PUSH Q4H PRN Nausea Pantoprazole Sodium 40 mg 07/10/24 09:00 07/10/24 08:18 Pantoprazole 40 Mg Tablet PO 40 mg DAILY TJ Administration Sacubitril/Valsartan 1 tab 07/08/24 21:00 07/10/24 08:17 Sacubitril/Valsartan 24-26 Mg Tablet PO 1 tab Q12HR TJ Administration Radiology Results: ITS Impressions Chest X-Ray 07/08/24 16:14 Impression: 1: No acute cardiopulmonary disease. Upper Quadrant Ultrasound 07/09/24 16:31 IMPRESSION: Fat infiltration. Otherwise, Unremarkable limited ultrasound of the abdomen. Labs Labs: Laboratory Results - last 24 hr 07/10/24 03:36 WBC 9.8 RBC 3.98 L Hgb 12.1 L Hct 38.2 L MCV 96.0 MCH 30.4 MCHC 31.7 L RDW 14.3 Plt Count 188 MPV 11.0 H Immature Gran % (Auto) 0.3 Neut % (Auto) 89.2 H Lymph % (Auto) 6.3 L [place] % (Auto) 4.2 Eos % (Auto) 0.0 Baso % (Auto) 0.0 L Lymph # (Auto) 0.62 L [place] # (Auto) 0.4 Eos # (Auto) 0.0 Baso # (Auto) 0.0 Abs Immat Gran (auto) 0.03 Absolute Neuts (auto) 8.8 H Absolute Nucleated RBC 0.000 Nucleated RBC % 0.0 Sodium 136 L Potassium 4.2 Chloride 99 Carbon Dioxide 28 Anion Gap 9 BUN 54 H D Creatinine 1.90 H Estim Creat Clear Calc 30 Estimated GFR 35 L Glucose 153 H Calcium 8.6 Magnesium 2.3 Total Bilirubin 3.7 H AST 33 ALT 30 Alkaline Phosphatase 42 Total Protein 7.0 Albumin 4.2 Quality VTE Prophylaxis VTE prophylaxis: pharmacologic ordered Hospitalist MIPS Advance Care Plan I have confirmed that the patient's Advanced Care Plan is present, code status is documented, or surrogate decision maker is listed in patient medical record.: Yes Medication Reconciliation I have utilized all available resources to obtain, update and review the patients current medications (includes all prescriptions, OTC, herbals, cannabis, and nutritional supplements).: Yes
--- NOTE | 2024-07-10 13:08 | WPDANESEPPF ---
Anes - Initial Pre Proc Eval Procedure: Operation Date: 07/10/24 13:30 Proposed Procedures p Trans Esophageal Echo HIWOT - Merced Vazquez MD s Electrical Cardioversion - Merced Vazquez MD Date/Time: 07/10/24 13:08 Surgeon: Armani Gallardo MD Pre Op Diagnosis: AFib with RVR, weakness Patient Data Age: 73 Gender: M Height: 1.73 m Weight: 69 kg Last Vital Signs Temp 36.3 C L 07/10/24 12:00 Pulse 110 H 07/10/24 12:00 Resp 1 L 07/10/24 12:00 BP 81/65 L 07/10/24 12:00 Pulse Ox 98 07/10/24 12:00 O2 Del Method Room Air 07/10/24 11:56 O2 Flow Rate 2 07/10/24 00:00 Allergies Allergy/AdvReac Type Severity Reaction Status Date / Time codeine AdvReac Mild HALLUCINATI Verified 04/29/24 12:07 ONS Home Medications Medication Instructions Recorded Confirmed Type carvedilol 3.125 mg tablet (Coreg) 3.125 mg PO Q12HR 30 days #60 tabs 02/19/22 07/08/24 Rx sacubitril 24 mg-valsartan 26 mg 1 tablet PO Q12HR 30 days #60 tabs 02/19/22 07/08/24 Rx tablet (Entresto) apixaban 2.5 mg tablet (Eliquis) 2.5 mg PO BID 09/18/23 07/08/24 History furosemide 40 mg tablet 40 mg PO DAILY #30 tabs 05/04/24 07/08/24 Rx albuterol sulfate 90 mcg/actuation 2 puff inhalation QID PRN 06/12/24 07/08/24 Rx aerosol inhaler shortness of breath or wheezing #8.5 grams pantoprazole 40 mg tablet,delayed 40 mg PO DAILY 07/09/24 07/09/24 History release Laboratory Tests 07/10/24 03:36 WBC 9.8 K/mm3 (4.5-10.0) RBC 3.98 L M/mm3 (4.6-6.20) Hgb 12.1 L g/dL (14.0-18.0) Hct 38.2 L % (42.0-52.0) MCV 96.0 fl (80-100) MCH 30.4 pg (26-34) MCHC 31.7 L g/dl (32-36) RDW 14.3 % (11.5-14.5) Plt Count 188 k/mm3 (150-375) MPV 11.0 H fl (7.4-10.4) Immature Gran % (Auto) 0.3 % (0-0.5) Neut % (Auto) 89.2 H % (45.5-73.1) Lymph % (Auto) 6.3 L % (18.3-44.2) [place] % (Auto) 4.2 % (2.6-8.5) Eos % (Auto) 0.0 % (0-4.4) Baso % (Auto) 0.0 L % (0.2-1.2) Lymph # (Auto) 0.62 L K/mm3 (0.9-3.2) [place] # (Auto) 0.4 K/mm3 (0.1-0.6) Eos # (Auto) 0.0 K/mm3 (0-0.3) Baso # (Auto) 0.0 K/mm3 (0.0-0.1) Abs Immat Gran (auto) 0.03 K/mm3 (0.00-0.031) Absolute Neuts (auto) 8.8 H K/mm3 (1.3-6.7) Absolute Nucleated RBC 0.000 K/mm3 (0.0-0.012) Nucleated RBC % 0.0 % (0.0-0.2) Sodium 136 L mmol/L (137-145) Potassium 4.2 mmol/L (3.4-5.0) Chloride 99 mmol/L (98-107) Carbon Dioxide 28 mmol/L (22-30) Anion Gap 9 mmol/L (4-12) BUN 54 H D mg/dL (9-20) Creatinine 1.90 H mg/dL (0.7-1.3) Estim Creat Clear Calc 30 ml/min Estimated GFR 35 L (59 - ) Glucose 153 H mg/dL (65-110) Calcium 8.6 mg/dL (8.4-10.2) Magnesium 2.3 mg/dL (1.6-2.3) Total Bilirubin 3.7 H mg/dL (0.2-1.3) AST 33 U/L (17-59) ALT 30 U/L (6-50) Alkaline Phosphatase 42 U/L (38-126) Total Protein 7.0 g/dL (6.3-8.2) Albumin 4.2 g/dL (3.5-5.1) Patient hx anesthesia problems: none Family hx anesthesia problems: none Results Review: All pre-operative results and documents have been reviewed as part of the pre-operative evaluation. [facility] Past Medical History Medical History Acute kidney injury Acute on chronic heart failure with reduced ejection fraction and diastolic dysfunction Afib Atrial fibrillation with RVR BMI 24.0-24.9, adult BPH without obstruction/lower urinary tract symptoms PSA 2.1 on 12/13/2023. BPPV (benign paroxysmal positional vertigo) CAD (coronary artery disease) acute NE with stents. CHF (congestive heart failure) Chronic anxiety Chronic atrial fibrillation Chronic kidney disease (CKD) stage G3a/A2, moderately decreased glomerular filtration rate (GFR) between 45-59 mL/min/1.73 square meter and albuminuria creatinine ratio between 30-299 mg/g (~12/13/23) BUN 28, creatinine 1.40 with GFR 49 on 12/13/2023. BUN 26, creatinine 1.3 with GFR 54 on 04/27/2024. 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 GERD (gastroesophageal reflux disease) Heart disease History of malignant melanoma right forearm with wide excision 2020 HLD (hyperlipidemia) HTN (hypertension) Iron deficiency anemia Iron 116 with 32% saturation and ferritin 71.5 with hemoglobin 15.2 on 12/13/2023. Ischemic cardiomyopathy with implantable cardioverter-defibrillator (ICD) Recent ejection fraction of 15%. Echo 02/21/2024 with severe global left ventricular hypokinesis with ejection fraction of 25% with moderate mitral valve regurgitation. Echo with ejection fraction 25% and grade 2 diastolic dysfunction on 04/30/2024. Mixed hyperlipidemia Cholesterol 243, triglycerides 123, HDL 52, LDL 139 on 12/13/2023. Cholesterol 226, triglycerides 116, HDL 42, LDL 145 on 04/27/2024. Pacemaker Seasonal allergic rhinitis Skin cancer Transaminitis Family History Family History Father Heart disease Other Cerebrovascular accident Mother Kidney failure Heart disease Acute myocardial infarction Social History Social History Social History: Patient lives on his own. He denies having any children or pets. Jorge his brother is his surrogate. and he wishes to be a full code. Smoking packs per day: 0.5 Smoking cigarettes per day: 10.0 Years smoked: 18 Smoking pack-years: 9.00 Smoking status: Former smoker Tobacco type: cigarettes Second hand tobacco smoke exposure: No Smoking end date: 07/08/14 Alcohol intake: never Drinks per week: 2 Alcohol use details: beer Substance use: never Substance use type: does not use Do You Feel Safe in your Home?: Yes Lack of Transportation: No Lack of Food: Never True Current Housing: I Have Housing Concerned About Future Housing: No Difficulty Paying Gas/Electric Bills: No Difficulty Paying for Meds: No Currently Unemployed: No Education: High School Diploma/GED Difficulty w/ Childcare or Family Care: No Living arrangements: alone Gender identity (if verbalized by the patient): Male Sexual Orientation (if Verbalized by the Patient): Straight or Heterosexual Spiritual care concerns: No Agree to blood products: Yes Anes - Eval Final PreProcedure Day of Procedure 07/10/24 13:08 Patient weight: normal Heart: irregular rhythm Lungs: decreased breath sounds Airway: Mallampati scale class II Neurological: alert and oriented Last oral intake: >/= 8 hours ASA classification: IV Emergent: no Anesthetic plan: proceed Anesthesia type and monitoring: general GIVS and standard monitoring Results Review: All pre-operative results and documents have been reviewed as part of the pre-operative evaluation. Informed Consent: The patient's anesthetic plan and its attendant risks and benefits were discussed with the patient/family/POA. Questions were solicited and answers provided to the satisfaction of the patient/family/POA.
--- NOTE | 2024-07-10 13:13 | ECG_ITS ---
Test Date: 2024-07-10 13:20:16 Measurements Intervals [place] Rate: 138 P: 0 [place]: 0 QRS: 77 QRSD: 110 T: 267 QT: 339 QTc: 514 Interpretive Statements ATRIAL FIBRILLATION WITH RAPID VENTRICULAR RESPONSE WITH INTERMITTENT VENTRICULAR PACED BEATS LOW QRS VOLTAGE IN EXTREMITY LEADS [QRS DEFLECTION < 0.5 mV IN LIMB LEADS] MODERATE INTRAVENTRICULAR CONDUCTION DELAY [105+ ms QRS DURATION, 80+ ms Q/S IN V1/V2, NO Q AND 60+ ms R IN I/aVL/V5/V6] MINIMAL ST DEPRESSION [0.025+ mV ST DEPRESSION] ABNORMAL QRS-T ANGLE [QRS-T AXIS DIFFERENCE > 60] Compared to ECG 07/08/2024 22:28:57 RVR NOW PRESENT Electronically Signed On 07-10-2024 14:31:43 BUNCH MAKER HAND by Merced Vazquez M.D.
--- NOTE | 2024-07-10 13:14 | ECG_ITS ---
Test Date: 2024-07-10 13:44:34 Measurements Intervals [place] Rate: 81 P: 63 [place]: 196 QRS: 80 QRSD: 104 T: 267 QT: 384 QTc: 447 Interpretive Statements SINUS RHYTHM LOW QRS VOLTAGE IN EXTREMITY LEADS [QRS DEFLECTION < 0.5 mV IN LIMB LEADS] ST DEVIATION AND MODERATE T-WAVE ABNORMALITY, CONSIDER ANTERIOR ISCHEMIA [-0.1+ mV T WAVE IN V3/V4] Compared to ECG 07/10/2024 13:20:16 SINUS RHYTHM NOW PRESENT Electronically Signed On 07-10-2024 14:32:05 HELP DESK ENGINEER by Merced Vazquez M.D.
--- NOTE | 2024-07-10 14:21 | P.PCNTEECA_ITS ---
HIWOT with Cardioversion Date of procedure: 07/10/24 Procedure Type: Date Of Procedure: 07/08/2024 Brief History Of Present Illness: Patient is a pleasant 73 year old male who is referred for HIWOT-guided DCCV for atrial fibrillation with RVR. Indication: Atrial fibrillation with RVR. Procedure In Detail: After verbal and written informed consent was obtained, the patient risks, benefits, and alternatives explained in detail. The patient agreed to proceed with the plan of care as outlined above.?The patient was evaluated at bedside in the Oncology Physician procedure room.?The posterior oropharynx, neck, and jaw angle all within normal limits on examination. Lungs were clear to auscultation. See pre- sedation note for further details. The patient was then placed in the appropriate 30 to 45 degree angle supine position at a slight left lateral decubitus position.?Patient was monitored throughout the study with telemetry, oxygen saturation, end-tidal CO2 monitoring, blood pressure, heart rate, and respirations.?The posterior hypopharynx was then locally anesthetized using repeated administration of Hurricaine spray. After local anesthetic of the posterior hypopharynx was achieved and the oral bite block placed, sedation was administered by the Anesthesia team.?After confirmation of adequate sedation, the transesophageal echocardiogram probe was advanced through the oral bite block into the posterior hypopharynx and into the esophagus easily and without complication.?Multiple, multiplanar echocardiographic images were obtained in multiple standard re-projections.?At the conclusion of the study, the transesophageal echocardiogram probe was removed easily and without complication. The patient tolerated the procedure well without difficulty. Moderate Sedation / Anesthesia Administration: Sedation administered by the Anesthesia team. FINDINGS: LEFT ATRIAL APPENDAGE: Anatomically normal structure with prominent pectinate muscles without thrombus or vegetation identified. CARDIOVERSION: Defibrillator pads were placed in an AP position. Once patient was adequately sedated, synchronized electrical cardioversion was performed with 1 shock at 250 joules, which restored sinus rhythm. CONCLUSION: SUCCESSFUL CARDIOVERSION TO SINUS RHYTHM WITH 1 SHOCK AT 250 JOULES. Complications: None
[2024-07-10] MEDS: AMIODARONE HCL 200 MG TABLET PO (16:09)
[2024-07-10] MEDS: IPRATROPIUM BR 0.02% INH SOLN 0.5 MG/2.5 ML VIAL INHALATION (19:26)
[2024-07-10] MEDS: LEVALBUTEROL NEB 1.25 MG/3 ML INHALATION (19:26)
[2024-07-10] MEDS: SACUBITRIL/VALSARTAN 12-13 MG TABLET 1 TAB PO (20:49)
[2024-07-11] VITALS (21 sets, daily range): BP systolic 93–110; BP diastolic 58–75; PULSE 76–97; RESP 14–18; TEMP 36.4–36.8; O2SAT 94–98
[2024-07-11] MEDS: IPRATROPIUM BR 0.02% INH SOLN 0.5 MG/2.5 ML VIAL INHALATION ×4 (02:17→20:03)
[2024-07-11] MEDS: LEVALBUTEROL NEB 1.25 MG/3 ML INHALATION ×4 (02:17→20:03)
[2024-07-11] MEDS: ACETAMINOPHEN 325 MG TABLET 650 MG PO (03:43)
[2024-07-11 05:12] LABS: Hematocrit 36.5 % (42.0-52.0); Hemoglobin 11.9 g/dL (14.0-18.0); Immature Granulocyte Absolute 0.06 K/mm3 (0.00-0.031); Immature Granulocyte Percent A 0.5 % (0-0.5); Lymphocytes Percent Auto 14.1 % (18.3-44.2); Mean Corpuscular HGB Conc 32.2 g/dl (32-36); Mean Corpuscular HGB Conc 32.6 g/dl (32-36); Mean Corpuscular Hemoglobin 29.4 pg (26-34); Mean Corpuscular Hemoglobin 29.7 pg (26-34); Mean Corpuscular Volume 91.4 fl (80-100); Mean Platelet Volume 10.7 fl (7.4-10.4); Mean Platelet Volume 10.8 fl (7.4-10.4); Monocytes Absolute Auto 0.7 K/mm3 (0.1-0.6); Monocytes Percent Auto 6.5 % (2.6-8.5); Neutrophils Percent Auto 78.9 % (45.5-73.1); Platelet Count Result 196 k/mm3 (150-375); Platelet Count Result 205 k/mm3 (150-375); Red Blood Count 4.01 M/mm3 (4.6-6.20); Red Blood Count 4.05 M/mm3 (4.6-6.20); Red Cell Distribution Width 13.8 % (11.5-14.5); Red Cell Distribution Width 13.9 % (11.5-14.5); White Blood Count 11.4 K/mm3 (4.5-10.0); White Blood Count 12.3 K/mm3 (4.5-10.0)
[2024-07-11 05:26] LABS: Alanine Aminotransferase 36 U/L (6-50); Alkaline Phosphatase 45 U/L (38-126); Anion Gap 8 mmol/L (4-12); Aspartate Amino Transferase 31 U/L (17-59); Blood Urea Nitrogen 61 mg/dL (9-20); Calcium 8.5 mg/dL (8.4-10.2); Carbon Dioxide 30 mmol/L (22-30); Chloride 98 mmol/L (98-107); Estimated CRCL calculation 27 ml/min; Estimated Glomerular Filt Rate 33; Glucose 99 mg/dL (65-110); Magnesium 2.2 mg/dL (1.6-2.3); Potassium 3.7 mmol/L (3.4-5.0); Sodium 136 mmol/L (137-145)
[2024-07-11] MEDS: SACUBITRIL/VALSARTAN 12-13 MG TABLET 1 TAB PO ×2 (08:38→20:32)
[2024-07-11] MEDS: PANTOPRAZOLE 40 MG TABLET PO (08:38)
[2024-07-11] MEDS: FUROSEMIDE 40 MG TABLET PO ×2 (08:38→16:53)
[2024-07-11] MEDS: AMIODARONE HCL 200 MG TABLET PO ×2 (08:39→16:53)
[2024-07-11] MEDS: APIXABAN 2.5 MG TABLET 5 MG PO ×2 (08:39→20:32)
[2024-07-11] MEDS: FLUTICASONE/UMECLIDIN/VILANTER 100-62.5-25 MCG ELLIPTA 1 PUFF INHALATION (09:45)
--- NOTE | 2024-07-11 14:21 | PM.IMPN ---
Progress Note: A&P Assessment and Plan (1) Elevated bilirubin: Code(s): R17 - Unspecified jaundice Status: Acute (2) Acute kidney injury superimposed on CKD: Code(s): N17.9 - Acute kidney failure, unspecified; N18.9 - Chronic kidney disease, unspecified Status: Acute (3) Acute on chronic heart failure with reduced ejection fraction and diastolic dysfunction: Code(s): I50.43 - Acute on chronic combined systolic (congestive) and diastolic (congestive) heart failure Status: Acute (4) Atrial fibrillation with rapid ventricular response: Code(s): I48.91 - Unspecified atrial fibrillation Status: Acute Plan 73-year-old male with past medical history of severe nonischemic cardiomyopathy, AFib, CKD presented with worsening shortness of breath, AFib with RVR.Emergency department workup showed unremarkable chest x-ray, EKG showed atrial fibrillation with rapid ventricular rate of 166. He received relieved IV metoprolol IV diltiazem and then a diltiazem drip. He also received IV metoclopramide. Labs showed some mild hyperkalemia at 5.5 which went down to 5.3 on repeat draw also noted [place]EN[place] on CKD with creatinine of 2.2 and a BUN of 40 with an estimated GFR of 29. ProBNP with a normal troponin. 1. AFib with RVR+ acute on chronic systolic heart failure: successfully underwent HIWOT-guided DCCV for atrial fibrillation with RVR Continue with telemetry monitoring Supplement magnesium Continue amiodarone 200 mg p.o. b.i.d. Continue Entresto 12 13 mg p.o. b.i.d. Continue Lasix 40 mg p.o. b.i.d. Bronchodilators Continue with O2 support Continue with Entresto Cardiology consult Strict I's and O's Daily weight Continue with Eliquis 2. [place] on pre-existing CKD stage 4: Monitor kidney function in setting of IV diuresis Hyperkalemia has resolved Supplement magnesium Recheck BMP in a.m. Avoid further nephrotoxins 3. Elevated total bilirubin: Likely in setting of hepatic congestion Will obtain right upper quadrant ultrasound 4. Code status: Full 5. DVT prophylaxis: On Eliquis 6. Disposition: Pending improvement Subjective Date/time seen: 07/11/24 14:21 Interval history: Yesterday successfully cardioverted. Occasional non sustained VT. Patient feels fatigue and wants to go home on Saturday. Review of Systems Review of Systems: All systems reviewed & are unremarkable except as noted in HPI and below Exam Narrative: GENERAL: Chronically ill-appearing, deconditioned, mild respiratory distress noted with supplemental oxygen in place HEAD: Normocephalic, atraumatic. ENT:? Mucous membranes moist. No obvious JVD CHEST: Crackles throughout, HEART: Irregularly irregular rhythm, tachycardia present ABDOMEN: Soft, nontender, nondistended. EXTREMITIES: Normal range of motion. No peripheral edema. SKIN: Warm dry normal color NEURO: Alert and oriented x3. PSYCH: Normal mood and affect Objective Data Vital Signs Vital Signs: Vital Signs - 24 hr 07/10/24 14:30 07/10/24 16:09 07/10/24 15:00 Temperature 97.3 F L Pulse Rate 85 82 83 Respiratory Rate 20 18 Blood Pressure 94/67 L 86/66 L Pulse Oximetry 97 99 Oxygen Delivery Room Air 07/10/24 16:00 07/10/24 16:00 07/10/24 16:00 Temperature 97.3 F L Pulse Rate 83 84 Respiratory Rate 20 Blood Pressure 92/69 L Pulse Oximetry 97 Oxygen Delivery Room Air 07/10/24 18:00 07/10/24 19:26 07/10/24 19:26 Temperature Pulse Rate 80 84 Respiratory Rate 18 Blood Pressure Pulse Oximetry 94 Oxygen Delivery Room Air 07/10/24 19:38 07/10/24 20:00 07/10/24 23:27 Temperature 97.9 F 97.7 F Pulse Rate 85 87 94 Respiratory Rate 18 16 16 Blood Pressure 87/65 L 107/72 Pulse Oximetry 100 95 Oxygen Delivery 07/10/24 20:00 07/10/24 20:00 07/10/24 22:00 Temperature Pulse Rate 84 84 88 Respiratory Rate 16 Blood Pressure Pulse Oximetry 95 Oxygen Delivery Room Air 07/11/24 00:00 07/11/24 00:00 07/11/24 02:18 Temperature Pulse Rate 88 88 86 Respiratory Rate 16 14 Blood Pressure Pulse Oximetry 95 Oxygen Delivery Room Air 07/11/24 02:25 07/11/24 02:00 07/11/24 03:20 Temperature Pulse Rate 87 92 89 Respiratory Rate 14 14 Blood Pressure Pulse Oximetry 95 Oxygen Delivery Room Air 07/11/24 03:20 07/11/24 04:00 07/11/24 06:00 Temperature 97.8 F Pulse Rate 89 89 80 Respiratory Rate 18 Blood Pressure 103/75 Pulse Oximetry 97 Oxygen Delivery 07/11/24 08:09 07/11/24 08:39 07/11/24 08:00 Temperature 97.8 F Pulse Rate 97 82 Respiratory Rate 18 Blood Pressure 94/58 L Pulse Oximetry 98 Oxygen Delivery Room Air 07/11/24 09:46 07/11/24 09:46 07/11/24 10:02 Temperature Pulse Rate 83 85 Respiratory Rate 16 16 Blood Pressure Pulse Oximetry 94 Oxygen Delivery Room Air 07/11/24 08:00 07/11/24 10:00 07/11/24 11:21 Temperature 97.6 F Pulse Rate 89 77 86 Respiratory Rate 18 Blood Pressure 93/65 L Pulse Oximetry 95 Oxygen Delivery 07/11/24 11:55 07/11/24 12:00 07/11/24 12:00 Temperature Pulse Rate 88 Respiratory Rate Blood Pressure Pulse Oximetry Oxygen Delivery Room Air Room Air Intake/Output Intake/Output: Intake & Output 07/08/24 07/09/24 07/10/24 07/11/24 23:59 23:59 23:59 23:59 Intake Total 1029.4 1035.9 920.0 940 Output Total 920 730 400 Balance 1029.4 115.9 190.0 540 Meds/Results Medications: Active Medications Generic Name Dose Route Start Last Admin Trade Name Freq PRN Reason Stop Dose Admin Acetaminophen 650 mg 07/11/24 03:19 07/11/24 03:43 Acetaminophen 325 Mg Tablet PO 650 mg Q4H PRN Administration Mild Pain (1-3) or Fever Al Hydrox/Mg Hydrox/Simethicone 30 ml 07/09/24 10:54 07/09/24 11:04 Mag Hydrox/Al Hydrox/Simeth 30 Ml Udc PO 30 ml Q4H PRN Administration Heartburn Albuterol 2 puff 07/08/24 19:39 Albuterol Sulfate (*Sp) Aerosol 1 Puff INHALATION QID PRN shortness of breath or wheezing Amiodarone HCl 200 mg 07/10/24 15:00 07/11/24 08:39 Amiodarone Hcl 200 Mg Tablet PO 200 mg BID TJ Administration Apixaban 5 mg 07/09/24 21:00 07/11/24 08:39 Apixaban 2.5 Mg Tablet PO 5 mg Q12HR TJ Administration Fluticasone/Umeclidinium/Vilanterol 1 puff 07/09/24 08:00 07/11/24 09:45 Fluticasone/Umeclidin/Vilanter 100-62.5-25 Mcg Ellipta INHALATION 1 puff DAILYRT TJ Administration Furosemide 40 mg 07/10/24 09:00 07/11/24 08:38 Furosemide 40 Mg Tablet PO 40 mg BID TJ Administration Ipratropium [place] 0.5 mg 07/10/24 20:00 07/11/24 09:45 Ipratropium Br 0.02% Inh Soln 0.5 Mg/2.5 Ml Vial INHALATION 0.5 mg Q6HRT TJ Administration Levalbuterol HCl 1.25 mg 07/10/24 20:00 07/11/24 09:45 Levalbuterol Neb 1.25 Mg/3 Ml INHALATION 1.25 mg Q6HRT TJ Administration Ondansetron HCl 4 mg 07/08/24 16:28 Ondansetron Inj 4 Mg/2 Ml Vial IV PUSH Q4H PRN Nausea Pantoprazole Sodium 40 mg 07/10/24 09:00 07/11/24 08:38 Pantoprazole 40 Mg Tablet PO 40 mg DAILY TJ Administration Sacubitril/Valsartan 1 tab 07/10/24 21:00 07/11/24 08:38 Sacubitril/Valsartan 12-13 Mg Tablet PO 1 tab Q12HR TJ Administration Radiology Results: ITS Impressions Chest X-Ray 07/08/24 16:14 Impression: 1: No acute cardiopulmonary disease. Upper Quadrant Ultrasound 07/09/24 16:31 IMPRESSION: Fat infiltration. Otherwise, Unremarkable limited ultrasound of the abdomen. Labs Labs: Laboratory Results - last 24 hr 07/11/24 07/11/24 07/11/24 04:23 04:23 04:23 WBC 11.4 H 12.3 H RBC 4.01 L 4.05 L Hgb 11.9 L Hct MCV MCH MCHC RDW Plt Count MPV Immature Gran % (Auto) Neut % (Auto) Lymph % (Auto) [place] % (Auto) Eos % (Auto) Baso % (Auto) Lymph # (Auto) [place] # (Auto) Eos # (Auto) Baso # (Auto) Abs Immat Gran (auto) Absolute Neuts (auto) Absolute Nucleated RBC Nucleated RBC % Sodium Potassium Chloride Carbon Dioxide Anion Gap BUN Creatinine Estim Creat Clear Calc Estimated GFR Glucose Calcium Magnesium Total Bilirubin AST ALT Alkaline Phosphatase Total Protein Albumin 07/11/24 07/11/24 07/11/24 04:23 04:23 04:23 WBC RBC Hgb 11.9 L Hct 36.5 L 37.0 L MCV 91.0 D 91.4 MCH 29.7 MCHC RDW Plt Count MPV Immature Gran % (Auto) Neut % (Auto) Lymph % (Auto) [place] % (Auto) Eos % (Auto) Baso % (Auto) Lymph # (Auto) [place] # (Auto) Eos # (Auto) Baso # (Auto) Abs Immat Gran (auto) Absolute Neuts (auto) Absolute Nucleated RBC Nucleated RBC % Sodium Potassium Chloride Carbon Dioxide Anion Gap BUN Creatinine Estim Creat Clear Calc Estimated GFR Glucose Calcium Magnesium Total Bilirubin AST ALT Alkaline Phosphatase Total Protein Albumin 07/11/24 07/11/24 07/11/24 04:23 04:23 04:23 WBC RBC Hgb Hct MCV MCH 29.4 MCHC 32.6 32.2 RDW 13.9 13.8 Plt Count 196 MPV Immature Gran % (Auto) Neut % (Auto) Lymph % (Auto) [place] % (Auto) Eos % (Auto) Baso % (Auto) Lymph # (Auto) [place] # (Auto) Eos # (Auto) Baso # (Auto) Abs Immat Gran (auto) Absolute Neuts (auto) Absolute Nucleated RBC Nucleated RBC % Sodium Potassium Chloride Carbon Dioxide Anion Gap BUN Creatinine Estim Creat Clear Calc Estimated GFR Glucose Calcium Magnesium Total Bilirubin AST ALT Alkaline Phosphatase Total Protein Albumin 07/11/24 07/11/24 04:23 04:23 WBC RBC Hgb Hct MCV MCH MCHC RDW Plt Count 205 MPV 10.7 H 10.8 H Immature Gran % (Auto) 0.5 Neut % (Auto) 78.9 H Lymph % (Auto) 14.1 L [place] % (Auto) 6.5 Eos % (Auto) 0.0 Baso % (Auto) 0.0 L Lymph # (Auto) 1.60 [place] # (Auto) 0.7 H Eos # (Auto) 0.0 Baso # (Auto) 0.0 Abs Immat Gran (auto) 0.06 H Absolute Neuts (auto) 9.0 H Absolute Nucleated RBC 0.000 Nucleated RBC % 0.0 Sodium 136 L Potassium 3.7 Chloride 98 Carbon Dioxide 30 Anion Gap 8 BUN 61 H Creatinine 2.00 H Estim Creat Clear Calc 27 Estimated GFR 33 L Glucose 99 Calcium 8.5 Magnesium 2.2 Total Bilirubin 3.0 H AST 31 ALT 36 Alkaline Phosphatase 45 Total Protein 7.0 Albumin 4.0 Quality VTE Prophylaxis VTE prophylaxis: pharmacologic ordered Hospitalist [facility] Advance Care Plan I have confirmed that the patient's Advanced Care Plan is present, code status is documented, or surrogate decision maker is listed in patient medical record.: Yes Medication Reconciliation I have utilized all available resources to obtain, update and review the patients current medications (includes all prescriptions, OTC, herbals, cannabis, and nutritional supplements).: Yes
--- NOTE | 2024-07-11 15:20 | PC.NURSE ---
This patient, Karin Jackson, was transferred to [facility] on 07/11/24 at 1515. Personal belongings sent with patient. Report given to Yola VILLA. Appropriate documentation sent with patient.
[2024-07-12] VITALS (13 sets, daily range): BP systolic 91–133; BP diastolic 65–92; PULSE 80–107; RESP 16–18; TEMP 36.5–36.6; O2SAT 94–95
[2024-07-12] MEDS: LEVALBUTEROL NEB 1.25 MG/3 ML INHALATION ×3 (02:11→14:12)
[2024-07-12] MEDS: IPRATROPIUM BR 0.02% INH SOLN 0.5 MG/2.5 ML VIAL INHALATION ×3 (02:11→14:12)
[2024-07-12 07:31] LABS: Basophils Percent Auto 0.2 % (0.2-1.2); Eosinophils Absolute Auto 0.2 K/mm3 (0-0.3); Eosinophils Percent Auto 1.7 % (0-4.4); Hemoglobin 14.5 g/dL (14.0-18.0); Immature Granulocyte Absolute 0.04 K/mm3 (0.00-0.031); Immature Granulocyte Percent A 0.4 % (0-0.5); Lymphocytes Percent Auto 16.7 % (18.3-44.2); Mean Corpuscular Hemoglobin 29.9 pg (26-34); Mean Corpuscular Volume 90.7 fl (80-100); Mean Platelet Volume 10.6 fl (7.4-10.4); Monocytes Absolute Auto 0.6 K/mm3 (0.1-0.6); Monocytes Percent Auto 6.7 % (2.6-8.5); Neutrophils Absolute Auto 7.1 K/mm3 (1.3-6.7); Neutrophils Percent Auto 74.3 % (45.5-73.1); Platelet Count Result 224 k/mm3 (150-375); Red Blood Count 4.85 M/mm3 (4.6-6.20); Red Cell Distribution Width 14.1 % (11.5-14.5); White Blood Count 9.6 K/mm3 (4.5-10.0)
[2024-07-12 07:46] LABS: Alanine Aminotransferase 33 U/L (6-50); Albumin Level 4.3 g/dL (3.5-5.1); Alkaline Phosphatase 44 U/L (38-126); Anion Gap 9 mmol/L (4-12); Aspartate Amino Transferase 24 U/L (17-59); Bilirubin,Total 2.5 mg/dL (0.2-1.3); Blood Urea Nitrogen 50 mg/dL (9-20); Carbon Dioxide 34 mmol/L (22-30); Chloride 95 mmol/L (98-107); Estimated CRCL calculation 34 ml/min; Estimated Glomerular Filt Rate 42; Glucose 88 mg/dL (65-110); Magnesium 1.8 mg/dL (1.6-2.3); Potassium 3.8 mmol/L (3.4-5.0); Sodium 138 mmol/L (137-145)
[2024-07-12] MEDS: FUROSEMIDE 40 MG TABLET PO ×2 (09:05→16:59)
[2024-07-12] MEDS: AMIODARONE HCL 200 MG TABLET PO ×2 (09:05→16:59)
[2024-07-12] MEDS: PANTOPRAZOLE 40 MG TABLET PO (09:06)
[2024-07-12] MEDS: APIXABAN 2.5 MG TABLET 5 MG PO ×2 (09:07→20:28)
[2024-07-12] MEDS: SACUBITRIL/VALSARTAN 12-13 MG TABLET 1 TAB PO ×2 (09:07→20:28)
--- NOTE | 2024-07-12 12:55 | PM.IMPN ---
Progress Note: A&P Assessment and Plan (1) Elevated bilirubin: Code(s): R17 - Unspecified jaundice Status: Acute (2) Acute kidney injury superimposed on CKD: Code(s): N17.9 - Acute kidney failure, unspecified; N18.9 - Chronic kidney disease, unspecified Status: Acute (3) Acute on chronic heart failure with reduced ejection fraction and diastolic dysfunction: Code(s): I50.43 - Acute on chronic combined systolic (congestive) and diastolic (congestive) heart failure Status: Acute (4) Atrial fibrillation with rapid ventricular response: Code(s): I48.91 - Unspecified atrial fibrillation Status: Acute Plan 73-year-old male with past medical history of severe nonischemic cardiomyopathy, AFib, CKD presented with worsening shortness of breath, AFib with RVR.Emergency department workup showed unremarkable chest x-ray, EKG showed atrial fibrillation with rapid ventricular rate of 166. He received relieved IV metoprolol IV diltiazem and then a diltiazem drip. He also received IV metoclopramide. Labs showed some mild hyperkalemia at 5.5 which went down to 5.3 on repeat draw also noted KENDELL on CKD with creatinine of 2.2 and a BUN of 40 with an estimated GFR of 29. ProBNP with a normal troponin. 1. AFib with RVR+ acute on chronic systolic heart failure: successfully underwent HIWOT-guided DCCV for atrial fibrillation with RVR Continue with telemetry monitoring Supplement magnesium Continue amiodarone 200 mg p.o. b.i.d. Continue Entresto 12 13 mg p.o. b.i.d. Continue Lasix 40 mg p.o. b.i.d. Bronchodilators Continue with O2 support Continue with Entresto Cardiology consult Strict I's and O's Daily weight Continue with Eliquis 2. Kendell on pre-existing CKD stage 4: Monitor kidney function in setting of IV diuresis Hyperkalemia has resolved Supplement magnesium Recheck BMP in a.m. Avoid further nephrotoxins 3. Elevated total bilirubin: Likely in setting of hepatic congestion Will obtain right upper quadrant ultrasound 4. Code status: Full 5. DVT prophylaxis: On Eliquis 6. Disposition: Pending improvement Subjective Date/time seen: 07/12/24 12:55 Interval history: Patient reports he is feeling better but still wants to go home tomorrow. Currently not entirely advised the nurse to place him on tele. No acute events overnight. Review of Systems Review of Systems: All systems reviewed & are unremarkable except as noted in HPI and below Exam Narrative: GENERAL: Chronically ill-appearing, deconditioned, mild respiratory distress noted with supplemental oxygen in place HEAD: Normocephalic, atraumatic. ENT:? Mucous membranes moist. No obvious JVD CHEST: Crackles throughout, HEART: Irregularly irregular rhythm, tachycardia present ABDOMEN: Soft, nontender, nondistended. EXTREMITIES: Normal range of motion. No peripheral edema. SKIN: Warm dry normal color NEURO: Alert and oriented x3. PSYCH: Normal mood and affect Objective Data Vital Signs Vital Signs: Vital Signs - 24 hr 07/11/24 14:27 07/11/24 14:48 07/11/24 20:03 Temperature Pulse Rate 77 76 80 Respiratory Rate 16 16 16 Blood Pressure Pulse Oximetry Oxygen Delivery Fraction of Inspired Oxygen 07/11/24 20:08 07/11/24 20:19 07/11/24 20:00 Temperature 98.3 F Pulse Rate 80 78 83 Respiratory Rate 16 14 Blood Pressure 110/72 Pulse Oximetry 94 96 Oxygen Delivery Room Air Fraction of Inspired Oxygen 07/12/24 02:12 07/12/24 02:24 07/12/24 04:00 Temperature 97.9 F Pulse Rate 93 89 87 Respiratory Rate 16 16 16 Blood Pressure 91/65 L Pulse Oximetry 94 Oxygen Delivery Fraction of Inspired Oxygen 07/12/24 07:46 07/12/24 07:46 07/12/24 09:05 Temperature Pulse Rate 84 80 Respiratory Rate 16 Blood Pressure Pulse Oximetry 95 Oxygen Delivery Room Air Fraction of Inspired Oxygen 21 Intake/Output Intake/Output: Intake & Output 07/09/24 07/10/24 07/11/24 07/12/24 23:59 23:59 23:59 23:59 Intake Total 1035.9 920.0 1430 1197 Output Total 920 021 682 3660 Balance 115.9 190.0 630 -928 Meds/Results Medications: Active Medications Generic Name Dose Route Start Last Admin Trade Name Freq PRN Reason Stop Dose Admin Acetaminophen 650 mg 07/11/24 03:19 07/11/24 03:43 Acetaminophen 325 Mg Tablet PO 650 mg Q4H PRN Administration Mild Pain (1-3) or Fever Al Hydrox/Mg Hydrox/Simethicone 30 ml 07/09/24 10:54 07/09/24 11:04 Mag Hydrox/Al Hydrox/Simeth 30 Ml Udc PO 30 ml Q4H PRN Administration Heartburn Albuterol 2 puff 07/08/24 19:39 Albuterol Sulfate (*Sp) Aerosol 1 Puff INHALATION QID PRN shortness of breath or wheezing Amiodarone HCl 200 mg 07/10/24 15:00 07/12/24 09:05 Amiodarone Hcl 200 Mg Tablet PO 200 mg BID TJ Administration Apixaban 5 mg 07/09/24 21:00 07/12/24 09:07 Apixaban 2.5 Mg Tablet PO 5 mg Q12HR TJ Administration Fluticasone/Umeclidinium/Vilanterol 1 puff 07/09/24 08:00 07/12/24 07:45 Fluticasone/Umeclidin/Vilanter 100-62.5-25 Mcg Ellipta IN[facility]ATION [facility] Furosemide 40 mg 07/10/24 09:00 07/12/24 09:05 Furosemide 40 Mg Tablet PO 40 mg BID TJ Administration Ipratropium [place] 0.5 mg 07/10/24 20:00 07/12/24 07:45 Ipratropium Br 0.02% Inh Soln 0.5 Mg/2.5 Ml Vial INHALATION 0.5 mg Q6HRT TJ Administration Levalbuterol HCl 1.25 mg 07/10/24 20:00 07/12/24 07:45 Levalbuterol Neb 1.25 Mg/3 Ml INHALATION 1.25 mg Q6HRT TJ Administration Ondansetron HCl 4 mg 07/08/24 16:28 Ondansetron Inj 4 Mg/2 Ml Vial IV PUSH Q4H PRN Nausea Pantoprazole Sodium 40 mg 07/10/24 09:00 07/12/24 09:06 Pantoprazole 40 Mg Tablet PO 40 mg DAILY TJ Administration Sacubitril/Valsartan 1 tab 07/10/24 21:00 07/12/24 09:07 Sacubitril/Valsartan 12-13 Mg Tablet PO 1 tab Q12HR TJ Administration Radiology Results: ITS Impressions Chest X-Ray 07/08/24 16:14 Impression: 1: No acute cardiopulmonary disease. Upper Quadrant Ultrasound 07/09/24 16:31 IMPRESSION: Fat infiltration. Otherwise, Unremarkable limited ultrasound of the abdomen. Labs Labs: Laboratory Results - last 24 hr 07/12/24 06:06 WBC 9.6 RBC 4.85 Hgb 14.5 Hct 44.0 MCV 90.7 MCH 29.9 MCHC 33.0 RDW 14.1 Plt Count 224 MPV 10.6 H Immature Gran % (Auto) 0.4 Neut % (Auto) 74.3 H Lymph % (Auto) 16.7 L Story % (Auto) 6.7 Eos % (Auto) 1.7 Baso % (Auto) 0.2 Lymph # (Auto) 1.60 [place] # (Auto) 0.6 Eos # (Auto) 0.2 Baso # (Auto) 0.0 Abs Immat Gran (auto) 0.04 H Absolute Neuts (auto) 7.1 H Absolute Nucleated RBC 0.000 Nucleated RBC % 0.0 Sodium 138 Potassium 3.8 Chloride 95 L Carbon Dioxide 34 H Anion Gap 9 BUN 50 H D Creatinine 1.60 H Estim Creat Clear Calc 34 Estimated GFR 42 L Glucose 88 Calcium 9.0 Magnesium 1.8 Total Bilirubin 2.5 H AST 24 ALT 33 Alkaline Phosphatase 44 Total Protein 7.0 Albumin 4.3 Quality VTE Prophylaxis VTE prophylaxis: pharmacologic ordered Hospitalist [facility] Advance Care Plan I have confirmed that the patient's Advanced Care Plan is present, code status is documented, or surrogate decision maker is listed in patient medical record.: Yes Medication Reconciliation I have utilized all available resources to obtain, update and review the patients current medications (includes all prescriptions, OTC, herbals, cannabis, and nutritional supplements).: Yes
[2024-07-12] MEDS: ACETAMINOPHEN 325 MG TABLET 650 MG PO (23:56)
[2024-07-13] VITALS (8 sets, daily range): BP systolic 100–107; BP diastolic 59–76; PULSE 79–98; RESP 18–20; TEMP 36.4–36.9; O2SAT 92–99
[2024-07-13 06:35] LABS: Basophils Percent Auto 0.3 % (0.2-1.2); Eosinophils Absolute Auto 0.3 K/mm3 (0-0.3); Hematocrit 46.9 % (42.0-52.0); Hemoglobin 14.9 g/dL (14.0-18.0); Immature Granulocyte Absolute 0.04 K/mm3 (0.00-0.031); Immature Granulocyte Percent A 0.4 % (0-0.5); Lymphocytes Absolute Auto 1.85 K/mm3 (0.9-3.2); Lymphocytes Percent Auto 19.7 % (18.3-44.2); Mean Corpuscular HGB Conc 31.8 g/dl (32-36); Mean Corpuscular Hemoglobin 28.8 pg (26-34); Mean Corpuscular Volume 90.5 fl (80-100); Mean Platelet Volume 10.1 fl (7.4-10.4); Monocytes Absolute Auto 0.7 K/mm3 (0.1-0.6); Neutrophils Absolute Auto 6.5 K/mm3 (1.3-6.7); Neutrophils Percent Auto 69.6 % (45.5-73.1); Platelet Count Result 235 k/mm3 (150-375); Red Blood Count 5.18 M/mm3 (4.6-6.20); Red Cell Distribution Width 13.9 % (11.5-14.5); White Blood Count 9.4 K/mm3 (4.5-10.0)
[2024-07-13 06:49] LABS: Alanine Aminotransferase 28 U/L (6-50); Alkaline Phosphatase 44 U/L (38-126); Anion Gap 8 mmol/L (4-12); Aspartate Amino Transferase 20 U/L (17-59); Bilirubin,Total 2.2 mg/dL (0.2-1.3); Blood Urea Nitrogen 46 mg/dL (9-20); Calcium 9.5 mg/dL (8.4-10.2); Carbon Dioxide 34 mmol/L (22-30); Chloride 93 mmol/L (98-107); Estimated CRCL calculation 37 ml/min; Estimated Glomerular Filt Rate 46; Glucose 91 mg/dL (65-110); Magnesium 1.6 mg/dL (1.6-2.3); Potassium 3.2 mmol/L (3.4-5.0); Sodium 135 mmol/L (137-145)
[2024-07-13] MEDS: IPRATROPIUM BR 0.02% INH SOLN 0.5 MG/2.5 ML VIAL INHALATION ×2 (07:22→14:00)
[2024-07-13] MEDS: LEVALBUTEROL NEB 1.25 MG/3 ML INHALATION ×2 (07:22→14:00)
[2024-07-13] MEDS: AMIODARONE HCL 200 MG TABLET PO (08:57)
[2024-07-13] MEDS: SACUBITRIL/VALSARTAN 12-13 MG TABLET 1 TAB PO (08:57)
[2024-07-13] MEDS: PANTOPRAZOLE 40 MG TABLET PO (08:58)
[2024-07-13] MEDS: FUROSEMIDE 40 MG TABLET PO (08:58)
[2024-07-13] MEDS: APIXABAN 2.5 MG TABLET 5 MG PO (08:58)
[2024-07-13] MEDS: POTASSIUM CHLORIDE 20 MEQ ER TABLET 60 MEQ PO (10:35)
--- NOTE | 2024-07-13 13:44 | PM.DS ---
DS: Admitting Diagnosis Discharge Date 07/13/2024 Admitting Diagnosis Rapid heart rate and dyspnea DS: Discharge Diagnosis Discharge Diagnosis (1) Elevated bilirubin: Code(s): R17 - Unspecified jaundice Status: Acute (2) Acute kidney injury superimposed on CKD: Code(s): N17.9 - Acute kidney failure, unspecified; N18.9 - Chronic kidney disease, unspecified Status: Acute (3) Acute on chronic heart failure with reduced ejection fraction and diastolic dysfunction: Code(s): I50.43 - Acute on chronic combined systolic (congestive) and diastolic (congestive) heart failure Status: Acute (4) Atrial fibrillation with rapid ventricular response: Code(s): I48.91 - Unspecified atrial fibrillation Status: Acute DS: Summary Hospital Course Hospital Course: 73-year-old male with past medical history of severe nonischemic cardiomyopathy, AFib, CKD presented with worsening shortness of breath, AFib with RVR.Emergency department workup showed unremarkable chest x-ray, EKG showed atrial fibrillation with rapid ventricular rate of 166. He received relieved IV metoprolol IV diltiazem and then a diltiazem drip. He also received IV metoclopramide. Labs showed some mild hyperkalemia at 5.5 which went down to 5.3 on repeat draw also noted MIMA on CKD with creatinine of 2.2 and a BUN of 40 with an estimated GFR of 29. ProBNP with a normal troponin. 1. AFib with RVR+ acute on chronic systolic heart failure: successfully underwent HIWOT-guided DCCV for atrial fibrillation with RVR Continue with telemetry monitoring Supplement magnesium Continue amiodarone 200 mg p.o. b.i.d. Continue Entresto 12 13 mg p.o. b.i.d. Continue Lasix 40 mg p.o. b.i.d. Continue with Eliquis 5 mg PO BID. 2. Mima on pre-existing CKD stage 4: Monitor kidney function in setting of IV diuresis Hyperkalemia has resolved Supplement magnesium Avoid further nephrotoxins 3. Elevated total bilirubin: Likely in setting of hepatic congestion Fat infiltration. Otherwise, Unremarkable limited ultrasound of the abdomen Patient needs to follow-up with the PCP and ocean export coordinator within the week upon discharge. In the event of chest pain, shortness a breath or palpitation please seek immediate medical care. Patient need to cut the Entresto tablet into half and take it as twice a day Status at Discharge Cognitive/behavioral status at discharge: Stable Time Spent with Patient Time attestation: Total time spent providing and/or coordinating discharge services:45 mins Exam Narrative: GENERAL: Chronically ill-appearing, deconditioned, mild respiratory distress noted with supplemental oxygen in place HEAD: Normocephalic, atraumatic. ENT:? Mucous membranes moist. No obvious JVD CHEST: Crackles throughout, HEART: Irregularly irregular rhythm, tachycardia present ABDOMEN: Soft, nontender, nondistended. EXTREMITIES: Normal range of motion. No peripheral edema. SKIN: Warm dry normal color NEURO: Alert and oriented x3. PSYCH: Normal mood and affect DS: Data Data Completed and Pending Labs on day of discharge: Labs from last 24 hours 07/13/24 07/13/24 12:15 05:26 WBC 9.4 RBC 5.18 Hgb 14.9 Hct 46.9 MCV 90.5 MCH 28.8 MCHC 31.8 L RDW 13.9 Plt Count 235 MPV 10.1 Immature Gran % (Auto) 0.4 Neut % (Auto) 69.6 Lymph % (Auto) 19.7 [place] % (Auto) 7.0 Eos % (Auto) 3.0 Baso % (Auto) 0.3 Lymph # (Auto) 1.85 [place] # (Auto) 0.7 H Eos # (Auto) 0.3 Baso # (Auto) 0.0 Abs Immat Gran (auto) 0.04 H Absolute Neuts (auto) 6.5 Absolute Nucleated RBC 0.000 Nucleated RBC % 0.0 Sodium 135 L Potassium 4.0 3.2 L Chloride 93 L Carbon Dioxide 34 H Anion Gap 8 BUN 46 H Creatinine 1.50 H Estim Creat Clear Calc 37 Estimated GFR 46 L Glucose 91 Calcium 9.5 Magnesium 1.6 Total Bilirubin 2.2 H AST 20 ALT 28 Alkaline Phosphatase 44 Total Protein 7.0 Albumin 4.0 Discharge Plan Discharge Attending physician on discharge: Armani Gallardo Consulting providers: Pat Cardoso Discharging Clinician: Armani Gallardo Anticipated Discharge Date/Time: 07/13/24 13:31 Patient Disposition: Home, Self-Care Activity: as tolerated Diet: heart healthy Discharge Instructions: Patient needs to follow-up with the PCP and ocean export coordinator within the week upon discharge. In the event of chest pain, shortness a breath or palpitation please seek immediate medical care. Patient need to cut the Entresto tablet into half and take it as twice a day Patient Instructions: Antibiotic Form Stand Alone Forms: General Discharge Information Follow-up/Referrals: Pat Cardoso APN-C [Advanced Practice Nurse] - 1 Week Nj Espino MD [Primary Care Provider] - 1 Week Discharge Medications: New furosemide 40 mg Tablet 40 mg PO BID Qty: 30 0RF amiodarone [Pacerone] 200 mg Tablet 200 mg PO BID Qty: 30 0RF sacubitril-valsartan 24-26 mg tablet 1 tablet PO ONCE Qty: 30 0RF Rx Instructions: Patient need to cut the Entresto tablet into half and take it as twice a day Continued pantoprazole 40 mg tablet,delayed release (DR/EC) 40 mg PO DAILY albuterol sulfate 90 mcg/actuation HFA aerosol inhaler 2 puff INHALATION QID PRN (Reason: shortness of breath or wheezing) Qty: 8.5 11RF Discontinued Eliquis 2.5 mg tablet 2.5 mg PO BID furosemide 40 mg Tablet 40 mg PO DAILY Qty: 30 0RF carvedilol [Coreg] 3.125 mg Tablet 3.125 mg PO Q12HR 30 Days Qty: 60 0RF Entresto 24-26 mg Tablet 1 tablet PO Q12HR 30 Days Qty: 60 0RF Date of admission: 07/10/24 10:24 Primary Care Provider: Nj Espino Admitting Provider: Armani Gallardo Attending physician on admission: Armani Gallardo Condition: Stable
== END 2024-07-13 14:55 | disposition home or self-care (01) | DRG 308 ==
LOC: ANHED 16:28 → ANHIMU 17:32 → ANH3MEDSUR 07-11 15:22
PROVIDERS: Internal Medicine; Nurse Practitioner; Student in an Organized Health Care Education/Training Program; Admitting Provider General Practice; Emergency Provider Emergency Medicine; PCP Family Medicine; Visit Provider General Practice
PROC: B24BZZ4 Ultrasonography of Heart with Aorta, Transesophageal (ICD-10-PCS; CPT 93312; principal; 2024-07-10 13:30)
PROC: 5A2204Z Restoration of Cardiac Rhythm, Single (ICD-10-PCS; 2024-07-10 13:30)
DX: I48.20 Chronic atrial fibrillation, unspecified (principal); I13.0 Hypertensive heart and chronic kidney disease with heart failure and stage 1 through stage 4 chronic kidney disease, or unspecified chronic kidney disease; I50.43 Acute on chronic combined systolic (congestive) and diastolic (congestive) heart failure; N17.9 Acute kidney failure, unspecified; J44.1 Chronic obstructive pulmonary disease with (acute) exacerbation; D50.9 Iron deficiency anemia, unspecified; E78.5 Hyperlipidemia, unspecified; E78.2 Mixed hyperlipidemia; E87.5 Hyperkalemia; I25.10 Atherosclerotic heart disease of native coronary artery without angina pectoris; I25.5 Ischemic cardiomyopathy; J44.9 Chronic obstructive pulmonary disease, unspecified; K21.9 Gastro-esophageal reflux disease without esophagitis; N18.31 Chronic kidney disease, stage 3a; N40.0 Benign prostatic hyperplasia without lower urinary tract symptoms; Z95.810 Presence of automatic (implantable) cardiac defibrillator; Z79.01 Long term (current) use of anticoagulants; Z85.828 Personal history of other malignant neoplasm of skin; Z87.891 Personal history of nicotine dependence; Z95.5 Presence of coronary angioplasty implant and graft
CPT/HCPCS: 36415; 36600; 71045; 76705; 80048; 80053; 82375; 82805; 83050; 83735; 83880; 84132; 84484; 85018; 85025; 85027; 85610; 85730; 92960; 93005; 93312; 93320; 93325; 94640; 96361; 96365; 96366; 96368; 96375; 96376; 97161; 97165; 97535; 99285; A9270; G0378; J0282; J1940; J2003; J2765; J2919; J3475; J7030; J7040; P9047; Q9957

== ENCOUNTER → 2024-12-24 14:24 | Outpatient (CLI) | payer MEDICARE, SELFPAY ==
--- NOTE | ~2024-12-24 | XR_ITS ---
CHEST RADIOGRAPH, PA AND LATERAL CLINICAL HISTORY: R05.9 - Cough, unspecified . COMPARISON: 07/08/2024 and 04/29/2024. Reference was also made to a CT examination of the chest dated TECHNIQUE: PA and lateral views of the chest. FINDINGS The left mid lung is partially obscured due to AICD generator. Wires project over the right atrium and right ventricle. Calcified lymph nodes within the mediastinum suggesting prior granulomatous disease. The remainder of the cardiomediastinal silhouette is otherwise unremarkable. Redemonstration of a 17 mm calcified nodule within the superior segment of the right lower lobe The remainder of the lungs are otherwise clear. IMPRESSION: Prior granulomatous disease, without focal infiltrate or effusion. If clinical suspicion persists, cross-sectional imaging (noncontrast enhanced CT examination of the c hest) is suggested for further evaluation. Reviewed, dictated and finalized at location A. IMPRESSION: Prior granulomatous disease, without focal infiltrate or effusion. If clinical suspicion persists, cross-sectional imaging (noncontrast enhanced C T examination of the chest) is suggested for further evaluation.
--- OUTSIDE RECORDS SUMMARY | 2024-12-24 14:28 | XMS_ITS ---
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 [employer]aving [employer] Splitting Name Role Phone Ambrose Reyes MD Unavailable Marcell Mckay MD Unavailable Ines Carpenter MD Unavailable Ines Carpenter MD Primary Care Provider Active Problems Problem Noted Date Diagnosed Date Family history of other specified conditions Dizziness and giddiness 03/04/2023 Hematochezia 03/04/2023 Hemopericardium as current c omplication following acute myocardial infarction 03/04/2023 Hyperlipidemia 03/04/2023 Chronic obstructive pulmonary disease 03/04/2023 Heartburn 06/08/2022 Hematochezia 06/08/2022 Hemopericardium as current c omplication following acute myocardial infarction 06/08/2022 Gastroesophageal reflux disease without esophagi tis 11/08/2021 Dizziness and giddiness 09/20/2021 Mitral valve insufficiency 10/19/2020 Abnormal tomography of chest 06/07/2020 Abnormal tomography of chest 06/07/2020 At risk of disease 06/03/2020 Dehydration 03/01/2020 Elevated serum creatinine 03/01/2020 Serum creatinine raised 03/01/2020 Abscess of axilla, right 03/24/2019 Overview (03/24/2019): S/p axillary sentinel lymph node biopsy 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 03/12/2019 Impotence 02/25/2019 Shoulder pain 02/25/2019 Ventricular tachycardia 02/25/2019 Arm wound, right, subsequent encounter 9 Overview (02/25/2019): Added automatically from request for surgery [id number] Melanoma of forearm, right 01/15/2019 Encounter for preprocedural cardiovascular exami [facility] 2018 Neck pain 07/21/2018 Atrial fibrillation 07/21/2018 Cardiomyopathy 07/21/2018 Degenerative disc disease, cervical 07/21/2018 Cervical stenosis of spinal canal 07/21/2018 Anxiety disorder, unspecified 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 Cardiomyopathy 05/09/2015 Peripheral vascular disease, unspecified 015 Peripheral vascular disease, unspecified 015 Unspecified atrial fibrillation 06/28/2014 Unspecified atrial flutter 06/28/2014 Acute stress reaction 06/07/2014 Acute stress reaction 06/07/2014 Coronary atherosclerosis 07/24/2013 CKD (chronic kidney disease) 07/17/2013 COPD (chronic obstructive pulmonary disease) Coronary atherosclerosis of [place] coronary francesca ry 07/17/2013 Encounter for other specified cardiac device in situ 07/17/2013 Overview (02/25/2019): Overview: LV (left ventricular) mural thrombus 07/17/2013 CHF (congestive heart failure) 07/16/2013 Ischemic cardiomyopathy 07/16/2013 Benign essential hypertension 08/05/1959 Current Treatment and Therapy Plans No current plan information found. Past Treatment and Therapy Plans Line Care Plan Name Start Date Discontinue Date Treatment Medications Discontinue Reason Plan Provider Hydration Therapy Plan 12/01/2019 10/15/2023 No medications scheduled. Automatic discontinuation of dormant plans Masoud Olivo MD Oncology Chemotherapy Treatment Plan Name Start Date Discontinue Date Treatment Medications Discontinue Reason Plan Provider Cycles Pembrolizumab 21 Day Cycles 06/02/20 19 12/04/2021 pembrolizumab (KEYTRUDA)pembr olizumab (KEYTRUDA) IVPB in 100 mL Therapy Complete Brian Min MD 29 of 30 cycles started Lifetime Dose Tracking * Chemical Lifetime Dose Automatic Entry Manual Entr y DLP 9,387 mGycm 9,387 mGycm 0 mGycm
--- OUTSIDE RECORDS SUMMARY | 2024-12-24 14:28 | XMS_ITS | Clinical Summary ---
Author Organization [facility] Address [address] [place] [address] Care Team Providers Care Cst Name Role Phone Ambrose Reyes MD Unavailable [phone] Marcell Mckay MD Unavailable Ines Carpenter MD Unavailable Ines Carpenter MD Primary Care Provider [phone] Allergies Active Allergy Reactions Criticality Noted Date Comments Codeine Delusions,Other (See comments) Medium 07/16 'Weird dreams' Morphine Rash Medium 01/12/2019 Medications amiodarone (PACERONE) 200 mg tablet Take 200 mg by mouth nightly Active atorvastatin (LIPITOR) 40 mg tabletIndicatio ns:hyperlipidem ia Take 40 mg by mouth nightly Active potassium chloride (KLOR-CON) 20 mEq packetIndicatio ns:hypokalemia prevention Take 1 packet (20 mEq total) by mouth nightly Active losartan (COZAAR) 25 mg tabletIndicatio ns:hypertension Take 1 tablet (25 mg total) by mouth nightly Active clonazePAM (KlonoPIN) 1 mg tabletIndicatio ns:sleep Take 0.5 tablets (0.5 mg total) by mouth nightly 9 Active furosemide (LASIX) 40 mg tabletIndicatio ns:take for Short of breath Take 1 tablet (40 mg total) by mouth daily as needed 9 Active tamsulosin (FLOMAX) 0.4 mg extended release capsuleIndicati ons:prostate Take 0.4 mg by mouth nightly Active acetaminophen (TYLENOL) 500 mg tablet Take 1 tablet (500 mg total) by mouth every 6 (six) hours as needed for pain or headaches Active ondansetron (ZOFRAN) 4 mg tablet Take 1 tablet (4 mg total) by mouth every 4 (four) hours as needed for nausea or vomiting 20 tablet 9 Active Additional Information Patient not taking.Reported on 11/02/2024 warfarin (COUMADIN) 2 mg tabletIndicatio ns:Venous Thrombosis Take 0.5 tablets (1 mg total) by mouth daily for 1 day, THEN 1 tablet (2 mg total) daily for 1 day. recheck pt/inr 03/30/19 per andreas . 2 tablet 9 Active budesonide (PULMICORT) 0.5 mg/2 mL nebulizer solution 0 Active ipratropium-alb uteroL (DUO-NEB) 0.5-2.5 mg/3 mL nebulizer solution 0 Active albuterol HFA (PROVENTIL HFA,VENTOLIN HFA,PROAIR HFA) 90 mcg/actuation inhaler Inhale 1-2 puffs every 4 (four) hours as needed [address] (PROTONIX) 40 mg EC tablet Take 1 tablet (40 mg total) by mouth daily 1 Active predniSONE (DELTASONE) 20 mg tablet 1 Active predniSONE (DELTASONE) 50 mg tablet 1 Active azithromycin (ZITHROMAX) 250 mg tablet 1 Active doxycycline hyclate 100 mg capsule 1 Active apixaban (ELIQUIS) 2.5 mg tablet Eliquis 2.5 mg tablet 0 Active carvediloL (COREG) 3.125 mg tablet Take 1 tablet (3.125 mg total) by mouth 2 (two) times a day 3 Active azelastine (ASTELIN) 137 mcg (0.1 %) nasal spray Administer 1 spray into each nostril 2 (two) times a day 4 Active gabapentin (NEURONTIN) 100 mg capsule Take 1 capsule (100 mg total) by mouth 2 (two) times a day 4 Active Entresto 24-26 mg tablet Take 1 tablet by mouth 2 (two) times a day 4 Active Breztri Aerosphere 160-9-4.8 mcg/actuation inhalerIndicati ons: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),Melanoma of forearm, right (HCC) Inhale 2 puffs 2 (two) times a day 4 Active Active Problems Problem Noted Date Diagnosed Date [...] (02/25/2019): Added automatically from request for surgery [id number] Melanoma of forearm, right 01/15/2019 Encounter for preprocedural cardiovascular exami [facility] 2018 Neck pain 07/21/2018 Atrial fibrillation 07/21/2018 Cardiomyopathy 07/21/2018 Degenerative disc disease, cervical 07/21/2018 Cervical stenosis of spinal canal 07/21/2018 Anxiety disorder, unspecified 04/18/2016 [facility] (current) use of anticoagulants 2015 Cardiomyopathy 05/09/2015 Peripheral vascular disease, unspecified 015 Peripheral vascular disease, unspecified 015 Unspecified atrial fibrillation 06/28/2014 Unspecified atrial flutter 06/28/2014 Acute stress reaction 06/07/2014 Acute stress reaction 06/07/2014 Coronary atherosclerosis 07/24/2013 CKD (chronic kidney disease) 07/17/2013 COPD (chronic obstructive pulmonary disease) Coronary atherosclerosis of [place] coronary francesca ry 07/17/2013 Encounter for other specified cardiac device in situ 07/17/2013 Overview (02/25/2019): Overview: LV (left ventricular) mural thrombus 07/17/2013 CHF (congestive heart failure) 07/16/2013 Ischemic cardiomyopathy 07/16/2013 Benign essential hypertension 08/05/1961 Encounters Date Type Department Care Team Description 11/16/2024 1:30 PM CDT Lab [address] [address] 11/04/[address] [facility] [address] [facility] [address] [place] [address] Olayinka Vega CMA 11/04/[address] [facility] [address] [place] [phone] Darcy Sifuentes RN 11/04/[address] [facility] [address] [place] [address] [address] [place] [address] Darcy Sifuentes RN 11/03/2024 Orders Only [facility] [address] [place] [address] Advanced Medicine 11th [place] [address] [place] [address] Gris Davis Au.D. Dizziness (Primary Dx) 11/03/[address] [facility] [address] [place] [address] Advanced [facility] 11th [place] [address] [place] [address] Gris Davis Au.D. 11/02/2024 1:40 PM CDT Office Visit 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); Melanoma of forearm, right (HCC) Discharge Disposition: Discharge to home or self care from Last 3 Months Immunizations Immunization Administration Dates Next Due Influenza, Quadrivalent, Hig h Dose, Preservative Free, Intrr 04/07/2020 Influenza, Quadrivalent, Spl it, Preservative Free, Intramuscular 06/05/2019,05/14/2018,05/21/2017,04/18 Influenza, Unspecified 04/22/2023,2021,05/11/2021,04/07 Pfizer SARS-CoV-2 Monovalent Vaccination (12+ Yrs) PURPLE 08/08/2021,11/25/2020,10/14/2020 Surgical History Surgery Date Site/Laterality Comments CARDIAC PACEMAKER PLACEMENT 08/05/2012 - 08/04/2013 CORONARY STENT PLACEMENT 08/05/2011 - 08/04/2012 ARM SKIN LESION BIOPSY / EXCISION 11/03/2018 - 12/02/2018 Right right forarm melonoma removed MELANOMA RESECTION 02/23/2019 US GUIDED BIOPSY LYMPH NODE SUPERFICIAL LEFT 11/04/2019 N/A Medical History Medical History Date Comments Hypertension Hyperlipidemia DE (myocardial infarction) (HCC) Heart disease Heart attack (HCC) Frequent headaches Melanoma (HCC) Difficulty walking Back pain Acid reflux Weakness Difficulty hearing Full dentures Dental bridge present Cataract Family History Medical History Relation Name Comments Melanoma Brother age unknown No Known Problems Father Lung cancer Maternal Grandmother age unk nown No Known Problems Mother Lung cancer Mother's Brother age unknown Relation Name Status Comments Brother Father Maternal Grandmother Mother Mother's Brother Social History Tobacco Use Types Packs/Day Years Used Date Smoking Tobacco: Former Cigarettes 0.5 31.4 S tarted: 1993 Smokeless Tobacco: Never Tobacco Cessation:Counseling Given: Yes Alcohol Use Standard Drinks/Week Comments Yes 4 (1 standard drink = 0.6 oz pur e alcohol) Sex and Gender Information Value Date Recorded Sex Assigned at Not on file 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 Gender Identity Not on file Sexual Orientation Not on file Obstetrics History Last Filed Vital Signs Vital Sign Reading Time Taken Comments Blood Pressure 114/72 11/02/2024 12:23 PM CDT Pulse 76 11/02/2024 12:23 PM CDT Temperature 36.4 C (97.6 F) 11/02/2024 12:23 PM CDT Respiratory Rate 18 11/02/2024 12:2 3 PM CDT Oxygen Saturation 97% 11/02/2024 12: 23 PM CDT Inhaled Oxygen Concentration - - Weight 69.3 kg (152 lb 12.8 oz) 025 12:23 PM CDT Height 175 cm (5' 8.9 ) 02/03/2024 12:5 5 PM CDT Body Mass Index 22.63 02/03/2024 12:55 PM CDT Plan of Treatment Health Maintenance Due Date Last Done Comments Depression Screening 1948 Fall Risk Assessment 1950 Hepatitis C Screening 1950 DTaP/Tdap/Td Vaccine (1 - Tdap) 1959 Hepatitis B Screening 1966 Pneumococcal vaccine 65+ (1 of 2 - PCV) 1967 Zoster Vaccine (1 of 2) 1967 Well Visit 65+ 2013 Covid-19 Vaccine (2023-2 5 season) 2024 08/08/2021, 08/08/2021, 11/25/2020, Additional history exists Influenza Vaccine (Season Ended) 2025 04/22/2023, 05/09/2022, 05/11/2021, Additional history exists Abdominal Aortic Aneurysm (A AA) Screen Completed 11/02/2024, 05/18/2024, 02/03/2024, Additional history exists Medical Devices Implanted Type 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 Device Identifier Shelf Expiration Date Model / Serial / Lot Icd ICD Left: Chest [employer] Procedures Procedure Name Priority Date/Time Associated Diagnosis Comments EGFR Routine 11/16/2024 1:35 PM CDT DIFFERENTIAL AUTO Routine 11/16/2024 1:3 5 PM CDT LIPID PANEL Routine 11/16/2024 1:35 PM CDT CBC WITH AUTO DIFFERENTIAL Routine 11/16/2024 1:35 PM CDT PRO B-TYPE NATRIURETIC PEPTIDE Routine 11/16/2024 1:35 PM CDT COMPREHENSIVE METABOLIC PANEL Routine 11/16/2024 1:35 PM CDT CORTISOL Routine 11/16/2024 1:35 PM CDT EGFR Routine 11/02/2024 11:47 AM CDT 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) Melanoma of forearm, right (HCC) DIFFERENTIAL AUTO Routine 11/02/2024 11: 47 AM CDT 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) Melanoma of forearm, right (HCC) COMPREHENSIVE METABOLIC PANEL Routine 11/02/2024 11:47 AM CDT 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) Melanoma of forearm, right (HCC) CBC WITH AUTO DIFFERENTIAL Routine 11/02/2024 11:47 AM CDT 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 73 m2 Comment: Interpretive Data Reference Interval Normal >/= 90 mL/min/1.73m2 Mildly decreased* 60 - 89 mL/min/1.73m2 Mildly to moderately decreased 45 - 59 mL/min/1.73m2 Moderately to severely decreased 30 - 44 mL/min/1.73m2 Severely decreased 15 - 29 mL/min/1.73m2 Kidney Failure < 15 mL/min/1.73m2 *Relative to young adult level Estimated glomerular filtration rate is determined by the 2020 CKD-EPI equation recommended by the National Kidney Foundation (A Unifying Approach to GFR Estimation: Recommendations of the NKF-ASK Task Force on Reassessing the Inclusion of Race in Diagnosing Kidney Disease, JASN 2020). The CKD-EPI equation should not be used for patients with unstable renal function and has not been validated in children and those over 70. Current interpretive data was last reviewed 2021. Blood 11/16/2024 1:35 PM CDT 11/16/2024 4:51 PM CDT us Jose Ma MD LAB BLOOD ORDERABLES Final Result NO [place] [id number] [address] Department [place] [address] * Differential, auto (11/16/2024 1:35 PM CDT) Neutrophil abs 4.43 1.50 - 6.50 K/cumm Imm gran abs 0.02 0.00 - 0.10 K/cumm [facility] Lymphocyte abs 1.31 0.80 - 3.30 K/cumm [facility] Monocyte abs 0.40 0.20 - 0.80 K/cumm [facility] Eosinophil abs 0.25 0.00 - 0.50 K/cumm [facility] Basophil abs 0.07 0.00 - 0.10 K/cumm [facility] Neutrophil pct 68.3 % [facility] Comment: Interpretive Data Percent cell count reference ranges are not reported, since discordance with absolute values may lead to misinterpretation of CBC data. Current Interpretive Data was last revised on 2017. Imm gran pct 0.3 % [facility] Comment: Interpretive Data Percent cell count reference ranges are not reported, since discordance with absolute values may lead to misinterpretation of CBC data. Current Interpretive Data was last revised on 2017. Lymphocyte pct 20.2 % [facility] Comment: Interpretive Data Percent cell count reference ranges are not reported, since discordance with absolute values may lead to misinterpretation of CBC data. Current Interpretive Data was last revised on 2017. Monocyte pct 6.2 % [facility] Comment: Interpretive Data Percent cell count reference ranges are not reported, since discordance with absolute values may lead to misinterpretation of CBC data. Current Interpretive Data was last revised on 2017. Eosinophil pct 3.9 % [facility] Comment: Interpretive Data Percent cell count reference ranges are not reported, since discordance with absolute values may lead to misinterpretation of CBC data. Current Interpretive Data was last revised on 2017. Basophil pct 1.1 % [facility] Comment: Interpretive Data Percent cell count reference ranges are not reported, since discordance with absolute values may lead to misinterpretation of CBC data. Current Interpretive Data was last revised on 2017. Blood 11/16/2024 1:35 PM CDT 11/16/2024 2:57 PM CDT us Jose Ma MD LAB BLOOD ORDERABLES Final Result GEJAYANT [address] [address] Department [place] [address] * (ABNORMAL) Pro B-type natriuretic peptide (11/16/2024 1:35 PM CDT) NT-proBNP 4,305(H) <=450 pg/mL Comment: Interpretive Comments: A. Dyspnea in Acute Care Setting All Ages: < 300 pg/ml, acute heart failure unlikely. < 50 yrs: 300 - 450 pg/ml, further investigation warranted. > 450 pg/ml, acute heart failure likely. 50 - 74 yrs: 300 - 900 pg/ml, further investigation warranted. > 900 pg/ml, acute heart failure likely . > or = 75 yrs: 450 - 1800 pg/ml, further investigation warranted. > 1800 pg/ml, acute heart failure likely. B. Non-acute Setting < 75 yrs < 125 pg/ml, rules out heart failure. > or = 125 pg/ml, further investigation warranted. > or = 75 yrs < 450 pg/ml, rules out heart failure. > or = 450 pg/ml, further investigation warranted. - Knowledge of each individual patient's NT-proBNP range may be more useful than using similar cut-points for every patient. Please note that marked elevations in NT-proBNP levels may be observed in state other than Left Ventricular Congestive Failure, including: acute coronary syndromes, right heart strain/failure (including pulmonary embolism and cor pulmonale), critical illness, renal failure, as well as advanced age. - References: 1. Trina GARCIA et.al. Eur Heart J. 2006:27:330-337. 2. Yaya RW, Dominic DUCKWORTH. J. AM Mac Cardiol: Cardiovasc Imag. 2009;2: 216- 225. Interpretive Data Last Revised Date: 2018. Blood 11/16/2024 1:35 PM CDT 11/16/2024 2:57 PM CDT us Jose Ma MD [place] [id number] [address] Department [place] [address] * (ABNORMAL) CBC with auto differential (11/16/2024 1:35 PM CDT) Pathologist [facility] WBC 6.48 3.80 - 9.90 K/cumm Hgb 13.9 13.0 - 17.5 g/dL [facility] Hct 43.3 38.9 - 50.3 % [facility] Plt 242 150 - 400 K/cumm [facility] MPV 9.9 9.1 - 12.3 fL [facility] RBC 4.72 4.30 - 5.80 M/cumm [facility] MCV 91.7 81.3 - 96.4 fL [facility] MCH 29.4 27.1 - 33.3 pg [facility] MCHC 32.1(L) 32.3 - 35.7 g/dL [facility] RDW CV 13.3 11.1 - 14.9 % [facility] RDW SD 45.1 35.7 - 48.1 fL [facility] NRBC abs 0.00 0.00 - 0.01 K/cumm [facility] Blood 11/16/2024 1:35 PM CDT 11/16/2024 2:57 PM CDT Jose Ma MD LAB BLOOD ORDERABLES Final Result Performing Organization Address [facility] Co de Phone Number NO [place] [phone] [address] [place] [address] * Cortisol (11/16/2024 1:35 PM CDT) [facility] Cortisol 8.5 4.8 - 19.5 mcg/dl Comment: Interpretive Data Normal Range: 4.8 - 19.5 mcg/dL; Evening: Half of morning value. This analyte undergoes marked diurnal variation. Ranges indicated apply to morning specimens. Current interpretive data was last revised 2018. Blood 11/16/2024 1:35 PM CDT 11/16/2024 2:57 PM CDT Jose Ma MD LAB BLOOD ORDERABLES Final Result Performing Organization Address City/[facility]/ZIP Co de Phone Number NO BOATENG [id number] [address] [employer] [place], [place] [id number] * (ABNORMAL) Lipid panel (11/16/2024 1:35 PM CDT) Cholesterol 244(H) 30 - 199 mg/dL Comment: Interpretive Data Ages < or = 19 years Acceptable: <170 mg/dL Borderline high: 170-199 mg/dL High: >or= 200 mg/dL Ages > or = 20 years Desirable: <200 mg/dL Borderline high: 200-239 mg/dL High: >or= 240 mg/dL Literature References: 1. Expert Panel on Integrated Guidelines for Cardiovascular Health and Risk Reduction in Children and Adolescents. Pediatrics 2011;128:S213 2. NCEP Expert Panel. Circulation 2004;110:227 Current Interpretive Data was last revised on 2018. Triglycerides 184(H) <=149 mg/dL NO BOATENG Comment: Interpretive Data Ages < or = 9 years Acceptable: <75 mg/dL Borderline high: 75-99 mg/dL High: >or= 100 mg/dL Ages 10 to 20 years Acceptable: <90 mg/dL Borderline high: 90-129 mg/dL High: >or= 130 mg/dL Ages > or = 20 years Desirable: <150 mg/dL Borderline high: 150-199 mg/dL High: 200-499 mg/dL Very high: >or= 499 mg/dL Literature References: 1. Expert Panel on Integrated Guidelines for Cardiovascular Health and Risk Reduction in Children and Adolescents. Pediatrics 2011;128:S213 2. NCEP Expert Panel. Circulation 2004;110:227 Current Interpretive Data was last revised on 2018. HDL 58 >=40 mg/dL NO BOATENG Comment: Interpretive Data Ages < or = 19 years Acceptable: >45 mg/dL Borderline low: 40-45 mg/dL Low: <40 mg/dL Ages > or = 20 years Desirable: >or= 60 mg/dL Low: <40 mg/dL Literature References: 1. Expert Panel on Integrated Guidelines for Cardiovascular Health and Risk Reduction in Children and Adolescents. Pediatrics 2011;128:S213 2. NCEP Expert Panel. Circulation 2004;110:227 Current Interpretive Data was last revised on 2018. LDL, calculated 153(H) <=129 mg/dL NO BOATENG Comment: Interpretive Data Ages < or = 19 years Acceptable: <110 mg/dL Borderline high: 110-129 mg/dL High: >or= 130 mg/dL Ages > or = 20 years Optimal: <100 mg/dL Near optimal: 100-129 mg/dL Borderline high: 130-159 mg/dL High: >160 mg/dL Calculated using the Jose Luis LDL-C estimating equation. This equation was implemented on 2024. Prior to this date LDL-C was estimated using the Friedewald equation. Literature References: 1. Expert Panel on Integrated Guidelines for Cardiovascular Health and Risk Reduction in Children and Adolescents. Pediatrics 2011;128:S213 2. NCEP Expert Panel. Circulation 2004;110:227 3. Jose Luis Fitzpatrick et al. NOEL Cardiol. 2019December 03;5(5):540-548. doi: 10.1001/jamacardio.2020.0013 Current Interpretive Data was last revised on 2024. Non-HDL Cholesterol 186 mg/dL [facility] Comment: Interpretive Data Ages < or = 19 years Acceptable: <120 mg/dL Borderline high: 120-144 mg/dL High: >145 mg/dL Ages > or = 20 years When triglycerides are >200 mg/dL, Non-HDL cholesterol is a secondary target of therapy with treatment goals that are 30 mg/dL greater than the LDL cholesterol target. Literature References: 1. Expert Panel on Integrated Guidelines for Cardiovascular Health and Risk Reduction in Children and Adolescents. Pediatrics 2011;128:S213 2. NCEP Expert Panel. Circulation 2004;110:227 Current Interpretive Data was last revised on 2018. Chol/HDL ratio 4 [facility] Blood 11/16/2024 1:35 PM CDT 11/16/2024 2:57 PM CDT us Jose Ma MD LAB [place] [address] [address] [place] [address] * (ABNORMAL) Comprehensive metabolic panel (11/16/2024 1:35 PM CDT) Sodium 140 135 - 145 mmol/L Potassium, pl 3.8 3.3 - 4.9 mmol/L [facility] Chloride 100 97 - 110 mmol/L [facility] CO2 28 22 - 32 mmol/L [facility] Anion gap 12 2 - 15 mmol/L [facility] BUN 20 6 - 25 mg/dL [facility] Creatinine 1.38(H) 0.80 - 1.30 mg/dL [facility] Comment:Icteric sample, test results may be affected. Glucose 93 70 - 199 mg/dL [facility] Comment: Interpretive Data Fasting glucose >/= 126 mg/dl is diagnostic for diabetes. Fasting is defined as no caloric intake for at least 8 hours. Fasting glucose between 100 mg/dl to 125 mg/dl is diagnostic of prediabetes. In a patient with classic symptoms of hyperglycemia or hyperglycemic crisis, a random glucose >/= 200 mg/dl is diagnostic for diabetes. In the absence of unequivocal hyperglycemia, results should be confirmed by repeat testing. The classification and Diagnosis of Diabetes Diabetes Care 2021; 46: S19-S40. Current interpretive data was last revised 2022. Calcium 9.3 8.5 - 10.3 mg/dL [facility] Bilirubin, total 1.0 0.1 - 1.2 mg/dL [facility] Protein, pl 7.4 6.5 - 8.5 g/dL [facility] Albumin 4.3 3.5 - 5.0 g/dL [facility] Alk phos 42 40 - 130 Units/L [facility] ALT 9 7 - 55 Units/L [facility] AST 20 10 - 50 Units/L [facility] Blood 11/16/2024 1:35 PM CDT 11/16/2024 2:57 PM CDT Jose Ma MD LAB [place] [address] [address] Department [place] [address] * (ABNORMAL) eGFR (11/02/2024 11:47 AM CDT) eGFR 55(L) >=60 mL/min/1. 73 m2 Comment: Interpretive Data Reference Interval Normal >/= 90 mL/min/1.73m2 Mildly decreased* 60 - 89 mL/min/1.73m2 Mildly to moderately decreased 45 - 59 mL/min/1.73m2 Moderately to severely decreased 30 - 44 mL/min/1.73m2 Severely decreased 15 - 29 mL/min/1.73m2 Kidney Failure < 15 mL/min/1.73m2 *Relative to young adult level Estimated glomerular filtration rate is determined by the 2020 CKD-EPI equation recommended by the National Kidney Foundation (A Unifying Approach to GFR Estimation: Recommendations of the NKF-ASK Task Force on Reassessing the Inclusion of Race in Diagnosing Kidney Disease, JASN 2020). The CKD-EPI equation should not be used for patients with unstable renal function and has not been validated in children and those over 70. Current interpretive data was last reviewed 2021. Blood 11/02/2024 11:4 7 AM CDT 11/02/2024 11:57 AM CDT us Sadiq Sim NP LAB BLOOD ORDERABLES Cami loving Result [facility] [place] [address] * Differential, auto (11/02/2024 11:47 AM CDT) Neutrophil abs 5.9 1.5 - 6.5 K/cumm Comment:Testing performed by : [facility], [address] [place], [place] [phone] Lymphocyte abs 1.3 0.8 - 3.3 K/cumm NO [facility] Comment:Testing performed by : [facility], [address] [place], [place] [phone] Monocyte abs 0.5 0.2 - 0.8 K/cumm CERJAYANT [facility] Comment:Testing performed by : [facility], [address] [place] [phone] Eosinophil abs 0.2 0.0 - 0.5 K/cumm CERJAYANT [facility] Comment:Testing performed by : [facility], [address] [place] [phone] Basophil abs 0.1 0.0 - 0.1 K/cumm CERJAYANT [facility] Comment:Testing performed by : [facility], [address] [place] [phone] Neutrophil pct 73.6 % [facility]ER[facility] Comment: Interpretive Data Percent cell count reference ranges are not reported, since discordance with absolute values may lead to misinterpretation of CBC data. Current Interpretive Data was last revised on 2017. Testing performed by: [facility] [facility], [address] [place] [phone] Lymphocyte pct 16.8 % CERJAYANT SCHUSTER Comment: Interpretive Data Percent cell count reference ranges are not reported, since discordance with absolute values may lead to misinterpretation of CBC data. Current Interpretive Data was last revised on 2017. Testing performed by: [facility], [address] [place] [phone] Monocyte pct 6.1 % CERJAYANT SCHUSTER Comment: Interpretive Data Percent cell count reference ranges are not reported, since discordance with absolute values may lead to misinterpretation of CBC data. Current Interpretive Data was last revised on 2017. Testing performed by: [facility], [address] [place] [phone] Eosinophil pct 2.2 % CERJAYANT SCHUSTER Comment: Interpretive Data Percent cell count reference ranges are not reported, since discordance with absolute values may lead to misinterpretation of CBC data. Current Interpretive Data was last revised on 2017. Testing performed by: [facility], [address] [place] [phone] Basophil pct 1.2 % CERJAYANT SCHUSTER Comment: Interpretive Data Percent cell count reference ranges are not reported, since discordance with absolute values may lead to misinterpretation of CBC data. Current Interpretive Data was last revised on 2017. Testing performed by: [facility], [address] [place] [phone] Blood 11/02/2024 11:4 7 AM CDT 11/02/2024 11:53 AM CDT us Sadiq Sim NP LAB BLOOD ORDERABLES Cami l Result NO SCHUSTERH [facility] [place] [address] * Thyroid Function [place] (11/02/2024 11:47 AM CDT) Pathologist [facility] TSH 2.85 0.30 - 4.20 mcIUnit/mL Blood 11/02/2024 11:4 7 AM CDT 11/02/2024 11:57 AM CDT Sadiq Sim POLYETHYLENE BAG MACHINE OPERATOR LAB BLOOD ORDERABLES Cami l Result [facility] [place] [address] * CBC with auto differential (11/02/2024 11:47 AM CDT) [facility] WBC 8.0 3.8 - 9.9 K/cumm Comment:Testing performed by : [facility], [address] [place] [address] Hgb 14.3 13.0 - 17.5 g/dL NO SCHUSTER Comment:Testing performed by : [facility], [address] [place] [address] Hct 43.8 38.9 - 50.3 % NO BJ Comment:Testing performed by : [facility], [address] [place] [address] Plt 295 150 - 400 K/cumm NO BJ Comment:Testing performed by : [facility], [address] [place] [address] MPV 7.8 6.8 - 10.4 fL NO BJ Comment:Testing performed by : [facility], [address] [place] [address] RBC 4.89 4.30 - 5.80 M/cumm NO BJ Comment:Testing performed by : [facility], [address] [place] [address] MCV 89.6 81.3 - 96.4 fL NO SCHUSTER Comment:Testing performed by : [facility], [address] [place], [place] [phone] MCH 29.3 27.1 - 33.3 pg NO [facility] Comment:Testing performed by : [facility], [address] [place], [place] [phone] MCHC 32.7 32.3 - 35.7 g/dL NO [facility] Comment:Testing performed by : [facility], [address] [place], [place] [phone] RDW CV 14.5 11.1 - 14.9 % NO [facility] Comment:Testing performed by : [facility], [address] [place], [place] [phone] NRBC abs 0.00 0.00 - 0.01 K/cumm NO [facility] Comment:Testing performed by : [facility], [address] [place], [place] [phone] Blood 11/02/2024 11:4 7 AM CDT 11/02/2024 11:53 AM CDT us Sadiq Sim NP LAB BLOOD ORDERABLES Cami loving Result [facility] [place] [address] * (ABNORMAL) Comprehensive metabolic panel (11/02/2024 11:47 AM CDT) Sodium 137 135 - 145 mmol/L Potassium, pl 5.3(H) 3.3 - 4.9 mmol/L [facility] Comment:Hemolyzed; Potassium value may be falsely elevated by as much as 0.6-1.0 mmol/L. Suggest redraw and reanalysis. Chloride 98 97 - 110 mmol/L [facility] CO2 28 22 - 32 mmol/L [facility] Anion gap 11 2 - 15 mmol/L [facility] BUN 28(H) 6 - 25 mg/dL [facility] Creatinine 1.33(H) 0.80 - 1.30 mg/dL [facility] Glucose 93 70 - 199 mg/dL [facility] Comment: Interpretive Data Fasting glucose >/= 126 mg/dl is diagnostic for diabetes. Fasting is defined as no caloric intake for at least 8 hours. Fasting glucose between 100 mg/dl to 125 mg/dl is diagnostic of prediabetes. In a patient with classic symptoms of hyperglycemia or hyperglycemic crisis, a random glucose >/= 200 mg/dl is diagnostic for diabetes. In the absence of unequivocal hyperglycemia, results should be confirmed by repeat testing. The classification and Diagnosis of Diabetes Diabetes Care 2021; 46: S19-S40. Current interpretive data was last revised 2022. Calcium 9.5 8.5 - 10.3 mg/dL [facility] Bilirubin, total 1.2 0.1 - 1.2 mg/dL [facility] Protein, pl 8.0 6.5 - 8.5 g/dL [facility] Albumin 4.2 3.5 - 5.0 g/dL [facility] Alk phos 35(L) 40 - 130 Units/L [facility] ALT 8 7 - 55 Units/L [facility] AST 26 10 - 50 Units/L [facility] Comment:Hemolyzed; result ma y be falsely elevated Blood 11/02/2024 11:4 7 AM CDT 11/02/2024 11:57 AM CDT Sadiq Sim NP LAB BLOOD ORDERABLES Cami l Result Performing Organization Address City/State/[facility] Co de Phone Number [facility] [place] [address] * CT Chest Abdomen Pelvis W Contrast (11/02/2024 10:56 AM CDT) Anatomical Region Laterality Modality Body N/A Computed Tomogra phy 11/02/2024 11:2 7 AM CDT Impressions 11/02/2024 12:07 PM CDT 1. No new evidence of metastatic disease in the chest, abdomen, or pelvis. 2. Moderate size hiatal hernia. Dictated by: Archie Camargo MD PHD The radiology attending physician has personally reviewed this study, and had reviewed and/or edited this written report and agrees with it. Electronically signed by: Jose Luis Bernard M.D. Narrative 11/02/2024 12:07 PM CDT EXAMINATION: CT CHEST ABDOMEN PELVIS W CONTRAST HISTORY: Melanoma TECHNIQUE: Transaxial computed tomographic images of the chest, abdomen and pelvis were obtained with intravenous contrast according to the standard protocol after the uneventful administration of 68 mL Opti-Ray 350 intravenous contrast. COMPARISON: 05/18/2024 FINDINGS: CHEST: Old granulomatous disease. Centrilobular emphysema. No new suspicious pulmonary nodule. No pleural effusion or pneumothorax. No pulmonary consolidation. Patent central airways. Normal thyroid. Left subclavian pacemaker defibrillator with leads in the right atrium and right ventricle. Normal heart size with no pericardial effusion. Calcified coronary atherosclerosis. Moderate-sized hiatal hernia. Otherwise normal thoracic esophagus. Unchanged mildly enlarged right hilar lymph node. No new suspicious intra-thoracic lymphadenopathy. ABDOMEN/PELVIS: No suspicious hepatic lesion. Normal gallbladder. No biliary ductal dilatation. Patent portal vein. Old granulomatous disease. Otherwise normal spleen. Adrenal glands and pancreas demonstrate no acute pathology. Mildly enlarged prostate with mild bladder wall thickening, may represent chronic outlet obstruction. No hydronephrosis. Kidneys enhance symmetrically. Nonobstructing renal calculus. No evidence of bowel obstruction. Colonic diverticulosis. No ascites or pneumoperitoneum. Mildly calcified abdominal aorta which is normal in course and caliber. Rectus abdominis diastasis. No definite lymphadenopathy is seen in the abdomen or pelvis. No suspicious cutaneous lesion. Bone windows demonstrate no suspicious osseous lesion. Degenerative changes of the spine. Procedure Note Jose Luis Bernard MD PhD - 11/02/2024 EXAMINATION: CT CHEST ABDOMEN PELVIS W CONTRAST HISTORY: Melanoma TECHNIQUE: Transaxial computed tomographic images of the chest, abdomen and pelvis were obtained with intravenous contrast according to the standard protocol after the uneventful administration of 68 mL Opti-Ray 350 intravenous contrast. COMPARISON: 05/18/2024 FINDINGS: CHEST: Old granulomatous disease. Centrilobular emphysema. No new suspicious pulmonary nodule. No pleural effusion or pneumothorax. No pulmonary consolidation. Patent central airways. Normal thyroid. Left subclavian pacemaker defibrillator with leads in the right atrium and right ventricle. Normal heart size with no pericardial effusion. Calcified coronary atherosclerosis. Moderate-sized hiatal hernia. Otherwise normal thoracic esophagus. Unchanged mildly enlarged right hilar lymph node. No new suspicious intra-thoracic lymphadenopathy. ABDOMEN/PELVIS: No suspicious hepatic lesion. Normal gallbladder. No biliary ductal dilatation. Patent portal vein. Old granulomatous disease. Otherwise normal spleen. Adrenal glands and pancreas demonstrate no acute pathology. Mildly enlarged prostate with mild bladder wall thickening, may represent chronic outlet obstruction. No hydronephrosis. Kidneys enhance symmetrically. Nonobstructing renal calculus. No evidence of bowel obstruction. Colonic diverticulosis. No ascites or pneumoperitoneum. Mildly calcified abdominal aorta which is normal in course and caliber. Rectus abdominis diastasis. No definite lymphadenopathy is seen in the abdomen or pelvis. No suspicious cutaneous lesion. Bone windows demonstrate no suspicious osseous lesion. Degenerative changes of the spine. IMPRESSION: 1. No new evidence of metastatic disease in the chest, abdomen, or pelvis. 2. Moderate size hiatal hernia. Dictated by: Archie Camargo MD PHD The radiology attending physician has personally reviewed this study, and had reviewed and/or edited this written report and agrees with it. Electronically signed by: Jose Luis Bernard M.D. Sadiq Sim NP IMG CT PROCEDURES Final R esult * (ABNORMAL) POCT creatinine (11/02/2024 10:41 AM CDT) Creatinine POC 1.5(H) 0.8 - 1.3 mg/dL Blood 11/02/2024 10:4 1 AM CDT 11/02/2024 10:41 AM CDT Brian Min MD LAB POCT ORDERABLES - DEVICE F inal Result NO [facility] [place] [address] from Last 3 Months Insurance [facility] MEDICARE ADVANTAGE [place] [id number] R HMO REF MEDICARE ADVANTAGE [place] [id number] Advance Directives For more information, please contact: [phone] * Full Code (Latest Code Status on File) Date Activated Date Inactivated Comments 03/22/2019 2:32 AM 03/25/2019 7:04 PM * Full Code Date Activated Date Inactivated Comments 07/20/2018 8:18 PM 07/23/2018 4:42 PM Care Teams Cst Relationship Specialty Start Date End Date Ines Carpenter MD [address] [facility] [facility] [address] [place] [address] PCP - General Internal Medicine 06/04/22 Ambrose Reyes MD Referring Physician Neurosurgery 07/23/18 Marcell Mckay MD [address] [place] [address] Consulting Physician Plastic Surgery 03/11/19 Ines Carpenter MD [address] [facility] [place] [place] [address] Consulting Physician Internal Medicine 06/04/22
--- OUTSIDE RECORDS SUMMARY | 2024-12-24 14:28 | XMS_ITS | CONTINUITY OF CARE DOCUMENT ---
Author Name skylar cheng Address Unknown Organization [facility] Address [address] [place] [address] Phone [phone] Care Team Providers Care Speech Therapist Technician Name Role Phone Sally SANCHEZ, Juwan Klein Unavailable [phone] ANIBAL GUSMAN MD Unavailable ANIBAL GUSMAN MD Unavailable PROBLEMS Condition Status Date Provider Notes Dizziness active Torrey Maldonado Coumadin clinic active Vishal Hernandez RN Abnormal chest CT scan active Vishal Hernandez RN Cardiomyopathy active Saniya Maria Vcitoria DIZZINESS-07/17 CATH LAD-CUT BALLOON- INTEGRITY completed - Rachel Valle MD OTHER DISEASES OF MEDIASTINU M NEC-NODULE completed - Rachel Valle MD CARDIOMYOPATHY- ISCHEMIC-EF 5-10%, S/P [employer] AICD and ep study active Rachel Valle MD Essential Hypertension active Rachel Valle MD MURAL THROMBUS, 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 Juwan Zavala MD HEALTH MAINTENANCE EXAM completed - Rachel Valle MD CAD 07/17 CATH LAD-Cutting Balloon INTEGRITY stent active Rachel Valle MD Family History of Sudden Car diac : completed - Rachel Valle MD Anxiety situational active Jose doyle MD Atrial fib active Jose aM MD Atrial flutter paroxysmal active Jose mon MD PVD unspecified active Jose Ma MD Preop cardiovasc. examination active Renny Zavala MD Risk of amiodarone toxicity w nursing home active Juwan Zavala MD Mitral regurgitation, mild-moderate active Juwan Zavala MD Dizziness active Juwan Zavala MD Hypercholesterolemia active Juwan danielle MD CHF - systolic active Juwan Zavala MD Cardiology examination active Jose anne MD ENCOUNTERS Date Type Provider Location Encounter Diag nosis - In-person encounter Office Visit Juwan Zavala MD [facility] - In-person encounter Office Visit Jose Ma MD [facility] - In-person encounter Office Visit Jose Ma MD [facility] Cardiology examination - In-person encounter Office Visit Juwan Zavala MD [facility] - In-person encounter Office Visit Juwan Zavala MD [facility] CHF - systolic - In-person encounter Office Visit Juwan Zavala MD [facility] - In-person encounter Office Visit Juwan Zavala MD [facility] Hypercholesterolemia - In-person encounter Office Visit Juwan Zavala MD [facility] - In-person encounter Office Visit Juwan Zavala MD [facility] - In-person encounter Office Visit Juwan Zavala MD [facility] - In-person encounter Office Visit Juwan Zavala MD [facility] - In-person encounter Office Visit [facility] - In-person encounter Office Visit Jose Ma MD [facility] - In-person encounter Office Visit Juwan Zavala MD [facility] - In-person encounter Office Visit Juwan Zavala MD [facility] - In-person encounter Office Visit Juwan Zavala MD [facility] - In-person encounter Office Visit Jose Ma MD [facility] - In-person encounter Office Visit Juwan Zavala MD [facility] - In-person encounter Office Visit Juwan Zavala MD [facility] Office Dizziness - In-person encounter Office Visit Juwan Zavala MD [facility] Mitral regurgitation, mild-moderate - In-person encounter Office Visit Juwan Zavala MD [facility] - In-person encounter Office Visit Juwan Zavala MD [facility] - In-person encounter Office Visit Juwan Zavala MD [facility] 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 examination - In-person encounter Office Visit Juwan Zavala MD [facility] - In-person encounter Office Visit Juwan Zavala MD [facility] - In-person encounter Office Visit Juwan Zavala MD [facility] - In-person encounter Office Visit Juwan Zavala MD [facility] - In-person encounter Office Visit Juwan Zavala MD [facility] - In-person encounter Office Visit Juwan Zavala MD [facility] - In-person encounter Office Visit Juwan Zavala MD [facility] - In-person encounter Office Visit Juwan Zavala MD [facility] - In-person encounter Office Visit Jose Ma MD [facility] PVD unspecified - In-person encounter Office Visit Jose Ma MD [facility] - In-person encounter Office Visit Jose Ma MD [facility] Atrial fibAtrial flutter paroxysmal - In-person encounter Office Visit Rachel Valle MD [facility] DIZZINESS-07/17 CATH LAD-CUT BALLOON- INTEGRITYOTHER DISEASES OF MEDIASTINUM NEC-NODULECARDIOMYOPATHY- ISCHEMIC-EF 5-10%, S/P [employer] AICD and ep studyEssential HypertensionHEALTH MAINTENANCE EXAMCAD 07/17 CATH LAD-Cutting Balloon INTEGRITY stentFamily History of Sudden Cardiac : - In-person encounter Office Visit Jose Ma MD [facility] Anxiety situational - In-person encounter Office Visit Jose Ma MD [facility] - In-person encounter Office Visit Jose Ma MD [facility] - In-person encounter Office Visit Jose Ma MD [facility] Essential HypertensionCAD 07/17 CATH LAD-Cutting Balloon INTEGRITY stent - In-person encounter Office Visit Juwan Zavala MD [facility] - In-person encounter Office Visit Juwan Zavala MD [facility] - In-person encounter Office Visit Juwan Zavala MD [facility] CARDIOMYOPATHY- ISCHEMIC-EF 5-10%, S/P [employer] AICD and ep studyMURAL THROMBUS, LEFT VENTRICLE-ON COUMADIN VITAL SIGNS Date Observation Value Provider Body Mass Index (Ratio) 22.96 kg/m2 Melodie Zavala MD blood pressure, diastolic 82 mm[facility]Hg[facility], [facility]Hg[facility] cat [facility] oxygen saturation, oximetry 97 % [facility] pulse rate 72 /min [facility] respiratory rate E&M 12 /min [facility] weight E&M 151 [lb_av] [facility] height E&M 68 [in_i] [facility] blood pressure, cuff size regular [facility] Body Mass Index (Ratio) 23.57 kg/m2 Torrey Maldonado blood pressure, diastolic 75 mm[Hg] [facility] blood pressure, systolic 121 mm[Hg] [facility] oxygen saturation, oximetry 95 % [facility] pulse rate 70 /min [facility] respiratory rate E&M 12 /min [facility] weight E&M 155 [lb_av] [facility] height E&M 68 [in_i] [facility] blood pressure, cuff size regular [facility] Body Mass Index (Ratio) 23.57 kg/m2 Abran Ma MD blood pressure, diastolic 86 mm[Hg] [facility], systolic 125 mm[Hg] [facility], oximetry 97 % [facility] pulse [facility] 85 /min [facility] rate E&M 12 /min [facility] weight E&M 155 [lb_av] [facility] height E&M 68 [in_i] [facility] blood [facility], cuff size regular [facility] Body Mass Index (Ratio) 24.17 kg/m2 Melodie Zavala MD blood pressure, diastolic 80 mm[Hg] Li nkLog blood pressure, systolic 111 mm[Hg] Sherry kLogic blood pressure, diastolic 80 mm[Hg] Yanni yla [facility] blood pressure, systolic 111 mm[Hg] Janae la [facility] blood pressure, cuff size regular Yanni deleona [facility] oxygen saturation, oximetry 97 % Elisa [facility] pulse rate 78 /min Elisa [facility] weight E&M 159 [lb_av] Elisa [facility] height E&M 68 [in_i] Elisa [facility] Body Mass Index (Ratio) 23.72 kg/m2 Melodie Zavala MD blood pressure, cuff size regular [facility], diastolic 68 mm[Hg] [facility] blood pressure, systolic 110 mm[Hg] [facility], oximetry 97 % [facility] rate E&M 14 /min [facility] pulse rate 76 /min [facility] weight E&M 156 [lb_av] Shannan Blackwell height E&M 68 [in_i] Shannan [facility] Body Mass Index (Ratio) 24.42 kg/m2 Melodie Zavala MD blood pressure, cuff size regular Au michel Roosevelt RN blood pressure, diastolic 70 mm[Hg] Au michel Roosevelt RN blood pressure, systolic 112 mm[Hg] Aud theron Roosevelt RN oxygen saturation, oximetry 98 % Adina Roosevelt RN respiratory rate E&M 20 /min Adina Roosevelt RN pulse rate 70 /min Adina Osmani klein RN weight E&M 160.6 [lb_av] Adina Aravindmk misty RN height E&M 68 [in_i] Adina Osamni klein RN Body Mass Index (Ratio) 24.02 kg/m2 Peña Epstein blood pressure, diastolic 74 mm[Hg] Li nkLogic blood pressure, systolic 115 mm[Hg] Sherry kLogic blood pressure, cuff size regular Raymundo rret blood pressure, diastolic 74 mm[Hg] Raymundo rret blood pressure, systolic 115 mm[Hg] Jar ret pulse rate 71 /min Philip y oxygen saturation, oximetry 98 % Philip respiratory rate E&M 16 /min Philip weight E&M 158 [lb_av] Philip y height E&M 68 [in_i] Philip y Body Mass Index (Ratio) 23.87 kg/m2 Sophy talley Quang blood pressure, diastolic 66 mm[Hg] Li nkLogic blood pressure, systolic 107 mm[Hg] Sherry kLogic blood pressure, cuff size regular Ja rret blood pressure, diastolic 66 mm[Hg] Ja rret blood pressure, systolic 107 mm[Hg] Belinda gordillo pulse rate 70 /min Philip y oxygen saturation, oximetry 97 % Philip respiratory rate E&M 12 /min Philip weight E&M 157 [lb_av] Philip y height E&M 68 [in_i] Philip y Body Mass Index (Ratio) 23.81 kg/m2 Melodie Zavala MD blood pressure, diastolic -1 mm[Hg] Libby nkLog blood pressure, systolic 113 mm[Hg] Sherry kLog blood pressure, diastolic 76 mm[Hg] Frida Elizalde blood pressure, systolic 113 mm[Hg] She tamara Elizalde oxygen saturation, oximetry 96 % Edita Elizalde respiratory rate E&M 20 /min Edita Elizalde pulse rate 71 /min Edita Elizalde blood pressure, cuff size regular Frida Elizalde weight E&M 156.6 [lb_av] Edita Elizalde height E&M 68 [in_i] Edita Elizalde Body Mass Index (Ratio) 23.87 kg/m2 Sagar Maldonado blood pressure, cuff size regular Raymundo Hernandez RN blood pressure, diastolic 60 mm[Hg] Raymundo Hernandez RN blood pressure, systolic 110 mm[Hg] Vishal Hernandez RN respiratory rate E&M 20 /min Vishal manriquez RN oxygen saturation, oximetry 97 % Vishal Hernandez RN pulse rate 71 /min Vishal Hernandez RN weight E&M 157 [lb_av] Vishal Hernandez RN Body Mass Index (Ratio) 24.63 kg/m2 Melodie Zavala MD blood pressure, cuff size large Ke rri Gruenenfelder blood pressure, diastolic 61 mm[Hg] Ke rri Gruenenfelder blood pressure, systolic 104 mm[Hg] Ker ri Gruenenfelder oxygen saturation, oximetry 96 % Mercdees Gruenenfelder respiratory rate E&M 16 /min Mercedes G ruenenfelder pulse rate 56 /min Mercedes Gruenenfe lder weight E&M 162 [lb_av] Mercedes Gruenenfe lder height E&M 68 [in_i] Mercedes Gruenenfe lder Body Mass Index (Ratio) 23.41 kg/m2 Torrey Maldonado blood pressure, cuff size large Ke rri Gruenenfelder blood pressure, diastolic 70 mm[Hg] Ke rri Gruenenfelder blood pressure, systolic 102 mm[Hg] Ker ri Gruenenfelder oxygen saturation, oximetry 93 % Mercedes Gruenenfelder respiratory rate E&M 14 /min Mercedes G ruenenfelder pulse rate 93 /min Mercedes Gruenenfe lder weight E&M 154 [lb_av] Mercedes Gruenenfe lder height E&M 68 [in_i] Mercedes Gruenenfe lder Body Mass Index (Ratio) 23.26 kg/m2 Melodie Zavala MD Body Mass Index (Ratio) 24.78 kg/m2 Melodie Zavala MD blood pressure, cuff size large Ke rri Gruenenfelder blood pressure, diastolic 75 mm[Hg] Darnell mejia Gruenenfelder blood pressure, systolic 110 mm[Hg] Lorna Krishnamurthyelder oxygen saturation, oximetry 97 % Mercedes Grjovitanfelder respiratory rate E&M 14 /min Mercedes Canas ruenenfelder pulse rate 73 /min Mercedes Rubio lder weight E&M 153 [lb_av] Mercedes Casanovanfe lder height E&M 68 [in_i] Mercedes Krishnamurthye lder blood pressure, diastolic 79 mm[Hg] Li nkLogic blood pressure, systolic 128 mm[Hg] Sherry kLogic blood pressure, cuff size regular Ca therine Moraga blood pressure, diastolic 79 mm[Hg] Ca therine Gary blood pressure, systolic 128 mm[Hg] Cat herine Gary oxygen saturation, oximetry 95 % Heather Gary respiratory rate E&M 16 /min Catheri ne Moraga pulse rate 101 /min Heather Gary weight E&M 163 [lb_av] Heather Gary height E&M 68 [in_i] Heather Gary Body Mass Index (Ratio) 24.78 kg/m2 Melodie Zavala MD blood pressure, diastolic 70 mm[Hg] Sa ra Steinberg blood pressure, systolic 100 mm[Hg] Melody a Steinberg oxygen saturation, oximetry 97 % Betty Steinberg respiratory rate E&M 16 /min Betty Si ms pulse rate 86 /min Betty Steinberg weight E&M 163 [lb_av] Betty Steinberg blood pressure, cuff size regular Sa ra Steinberg height E&M 68 [in_i] Betty Steinberg Body Mass Index (Ratio) 25.09 kg/m2 Melodie Zavala MD blood pressure, cuff size large Ke rri Gruenenfelder blood pressure, diastolic 80 mm[Hg] Ke rri Gruenenfelder blood pressure, systolic 106 mm[Hg] Ker ri Gruenenfelder oxygen saturation, oximetry 97 % Mercedes Gruenenfelder respiratory rate E&M 14 /min Mercedes G ruenenfelder pulse rate 87 /min Mercedes Gruenenfe lder weight E&M 165 [lb_av] Mercedes Gruenenfe lder height E&M 68 [in_i] Mercedes Gruenenfe lder pulse rate 79 /min Juwan danielle MD blood pressure, diastolic 80 mm[Hg] Sa josef Zavala MD blood pressure, systolic 128 mm[Hg] Joaquin Zavala MD Body Mass Index (Ratio) 24.02 kg/m2 Melodie aZvala MD blood pressure, cuff size large Ke rri Gruenenfelder blood pressure, diastolic 68 mm[Hg] Ke rri Gruenenfelder blood pressure, systolic 126 mm[Hg] Ker ri Gruenenfelder oxygen saturation, oximetry 95 % Mercedes Gruenenfelder respiratory rate E&M 16 /min Mercedes G ruenenfelder pulse rate 101 /min Mercedes Gruenenfe lder weight E&M 158 [lb_av] Mercedes Gruenenfe lder height E&M 68 [in_i] Mercedes Gruenenfe lder Body Mass Index (Ratio) 24.17 kg/m2 Melodie Zavala MD weight E&M 159 [lb_av] Zulema Griffithrich loving blood pressure, cuff size regular Cy marge Connors blood pressure, diastolic 74 mm[Hg] Cy marge Connors blood pressure, systolic 109 mm[Hg] Adry omkar Connors respiratory rate E&M 16 /min Zulema Connors pulse rate 70 /min Zulema loving oxygen saturation, oximetry 98 % Zuelma Connors height E&M 68 [in_i] Zulema Velarde inder Body Mass Index (Ratio) 24.36 kg/m2 Melodie Zavala MD blood pressure, diastolic 68 mm[Hg] Lucas Avila Ozzy blood pressure, systolic 110 mm[Hg] Zamzam Kinjal Preciado oxygen saturation, oximetry 20 % Brendan Preciado pulse rate 69 /min Brendan Carney yousifmisty weight E&M 160.2 [lb_av] Brendan mccray height E&M 68 [in_i] Brendan Carney misty Body Mass Index (Ratio) 24.93 kg/m2 Melodie Zavala MD oxygen saturation, oximetry 98 % Chastity Navi blood pressure, diastolic 80 mm[Hg] Ch astity Navi blood pressure, systolic 115 mm[Hg] Angie stity Navi pulse rate 70 /min Chastity Navi respiratory rate E&M 16 /min Chastit y Navi weight E&M 164 [lb_av] Chastity Navi height E&M 68 [in_i] Chastity Navi Body Mass Index (Ratio) 23.87 kg/m2 Porfirio Valle MD blood pressure, resting Yes Tons mario Padilla blood pressure, diastolic 75 mm[Hg] To [facility] blood pressure, systolic 121 mm[Hg] [facility] oxygen saturation, oximetry 97 % [facility] respiratory rate E&M 16 /min [facility] pulse rate 73 /min [facility] temperature E&M 99.1 [degF] [facility] temperature site temporal [facility] weight E&M 157 [lb_av] [facility] height E&M 68 [in_i] [facility] Body Mass Index (Ratio) 24.93 kg/m2 Melodie Zavala MD blood pressure, cuff size regular Cy marge Connors blood pressure, diastolic 60 mm[Hg] Martir Connors blood pressure, systolic 90 mm[Hg] Adry omkar Connors oxygen saturation, oximetry 96 % Zulema Connors respiratory rate E&M 16 /min Zulema Connors pulse rate 70 /min Zulema Prachi l weight E&M 164 [lb_av] Zulema Nachobel l height E&M 68 [in_i] Zulema Nachobel l Body Mass Index (Ratio) 25.09 kg/m2 Melodie Zavala MD blood pressure, diastolic 80 mm[Hg] Da joanne Fred blood pressure, systolic 122 mm[Hg] Dac ia Fred oxygen saturation, oximetry 95 % Harper Fred respiratory rate E&M 16 /min Harper V oss pulse rate 91 /min Harper Fred weight E&M 165 [lb_av] Harper Fred height E&M 68 [in_i] Harper Fred pulse rate, supine, right 77 /min Martir Connors orthostatic blood pr essure, lying, right leg, diastolic 80 Zulema Connors orthostatic blood pr essure, lying, right arm, systolic 130 Zulema Connors pulse rate, sitting, left 66 /min Cy marge Connors orthostatic blood pr essure, sitting, left arm, diastolic 70 Zulema Connors orthostatic blood pr essure, sitting, left arm, systolic 118 Zulema Connros height E&M 68 [in_i] Zulema Velarde inder height in centimeters E&M 172.72 cm Cy marge Connors Body Mass Index (Ratio) 24.72 kg/m2 Manolo Narciso blood pressure, diastolic 72 mm[Hg] Lucas Vogelernie NeumannPreciado blood pressure, systolic 122 mm[Hg] Zamzam Layton Ozzy oxygen saturation, oximetry 97 % BrendanKathy Neumannenson respiratory rate E&M 18 /min Marcelino Preciado pulse rate 72 /min Brendan Rommel naina weight E&M 162.6 [lb_av] Brendan lópezmisty height E&M 68 [in_i] Brendan Carney naina Body Mass Index (Ratio) 23.87 kg/m2 Melodie Zavala MD blood pressure, cuff size regular Ke roberto Black blood pressure, diastolic 60 mm[Hg] Darnell rri Wayne blood pressure, systolic 106 mm[Hg] Lorna Black oxygen saturation, oximetry 95 % Mercedes Black respiratory rate E&M 18 /min Mercedes shipman pulse rate 79 /min Mercedes corona weight E&M 157 [lb_av] Mercedse mendezer height E&M 68 [in_i] Mercedes corona Body Mass Index (Ratio) 25.24 kg/m2 Melodie Zavala MD blood pressure, cuff size regular Ke rri Grpeggyneyuridiavineet blood pressure, diastolic 83 mm[Hg] Ke rri Grueneyuridiaelder blood pressure, systolic 130 mm[Hg] Lorna ri Yessymakenzieer oxygen saturation, oximetry 98 % Mercedes Yessymakenzieer respiratory rate E&M 16 /min Mercedes G tonylenoravineet pulse rate 73 /min Mercedes Joanne lder weight E&M 166 [lb_av] Mercedes Yessye lder height E&M 68 [in_i] Mercedes Yessye lder blood pressure, diastolic 74 mm[Hg] Ke rri Yessyvineet blood pressure, systolic 132 mm[Hg] Lorna Krishnamurthymakenzienicole pulse rate 81 /min Mercedes Joanne lder oxygen saturation, oximetry 95 % Mercedes Black respiratory rate E&M 16 /min Mercedes G tonylenoramakenzienicole Body Mass Index (Ratio) 25.54 kg/m2 Ingram cat Krishnamurthyvineet weight E&M 168 [lb_av] Mercedes Rubio lder blood pressure, diastolic 89 mm[Hg] Lucas Preciado blood pressure, systolic 126 mm[Hg] Zamzam Preciado pulse rate 96 /min Brendan chew oxygen saturation, oximetry 97 % Brendan Preciado respiratory rate E&M 16 /min Marcelino Preciado Body Mass Index (Ratio) 25.30 kg/m2 Lida Preciado weight E&M 166.4 [lb_av] Brendan mccray blood pressure, diastolic 92 mm[Hg] Lucas Preciado blood pressure, systolic 133 mm[Hg] Zamzam Preciado Body Mass Index (Ratio) 24.45 kg/m2 Lida Preciado pulse rate 90 /min Brendan chew oxygen saturation, oximetry 97 % Brendan Preciado respiratory rate E&M 16 /min Marcelino Preciado weight E&M 160.8 [lb_av] Brendan mccray blood pressure, diastolic 76 mm[Hg] Lucas Preciado blood pressure, systolic 120 mm[Hg] Zamzam Preciado Body Mass Index (Ratio) 24.63 kg/m2 Lida Preciado pulse rate 84 /min Brendan chew oxygen saturation, oximetry 98 % Brendan Preciado respiratory rate E&M 16 /min Marcelino Preciado weight E&M 162 [lb_av] Brendan chew Body Mass Index (Ratio) 24.63 kg/m2 Ingram i Wayne blood pressure, diastolic 86 mm[Hg] Ke rri Evannemichoacano blood pressure, systolic 137 mm[Hg] Ker ri Wayne pulse rate 76 /min Mercedes Joanne lder oxygen saturation, oximetry 96 % Mercedes Wayne respiratory rate E&M 15 /min Mercedes G umberto weight E&M 162 [lb_av] Mercedes Gruenenfe lder Body Mass Index (Ratio) 24.48 kg/m2 Jessica chacha Araiza respiratory rate E&M 16 /min Suni Araiza blood pressure, diastolic 80 mm[Hg] Ta charis Araiza blood pressure, systolic 124 mm[Hg] Gonzalez ica Teodora pulse rate 78 /min Suni Araiza oxygen saturation, oximetry 97 % Suni Araiza weight E&M 161 [lb_av] Suni Araiza Body Mass Index (Ratio) 23.26 kg/m2 Jessica Araiza blood pressure, diastolic 71 mm[Hg] Rudy Araiza blood pressure, systolic 101 mm[Hg] Carlos Araiza pulse rate 77 /min Suni Araiza oxygen saturation, oximetry 98 % Suni Araiza respiratory rate E&M 17 /min Suni Araiza weight E&M 153 [lb_av] Suni Araiza blood pressure, diastolic, standing 90 mm [Hg] [facility], [facility], standing 146 mm [Hg] [facility] Body Mass Index (Ratio) 22.80 kg/m2 [facility], [facility] 88 mm[Hg] [facility] blood pressure, systolic 158 mm[Hg] [facility] pulse rate 88 /min [facility] oxygen saturation, oximetry 98 % [facility] respiratory rate E&M 17 /min [facility]&M 150 [lb_av] Kimmie Zross Body Mass Index (Ratio) 22.65 kg/m2 Cristy Mcdonald blood pressure, cole tolic, second observation 82 mm[Hg] Ginny Mcdonald blood pressure, syst olic, second observation 139 mm[Hg] Ginny Mcdonald blood pressure, diastolic 82 mm[Hg] Na ernesto Mcdonald blood pressure, systolic 139 mm[Hg] Monica Mcdonald pulse rate 78 /min Ginny Mcdonald oxygen saturation, oximetry 97 % Ginny Mcdonald respiratory rate E&M 16 /min Ginny Mcdonald weight E&M 149 [lb_av] Ginny Mcdonald Body Mass Index (Ratio) 22.96 kg/m2 Lissett franco Potts blood pressure, diastolic 88 mm[Hg] Me berry Potts blood pressure, systolic 141 mm[Hg] Cheyanne mocka Potts pulse rate 74 /min Aurea Potts oxygen saturation, oximetry 98 % Aurea Potts respiratory rate E&M 14 /min Aurea Potts weight E&M 151 [lb_av] Aurea Potts Body Mass Index (Ratio) 22.96 kg/m2 Lissett franco Potts blood pressure, diastolic 88 mm[Hg] Me berry Potts blood pressure, systolic 142 mm[Hg] Cheyanne mocka Potts pulse rate 74 /min Aurea Potts oxygen saturation, oximetry 98 % Aurea Potts respiratory rate E&M 16 /min Aurea Potts weight E&M 151 [lb_av] Aurea Potts Body Mass Index (Ratio) 23.81 kg/m2 Lissett franco Potts blood pressure, diastolic 86 mm[Hg] Me berry Potts blood pressure, systolic 124 mm[Hg] Cheyanne mocka Potts pulse rate 68 /min Aurea Potts oxygen saturation, oximetry 98 % Aurea Potts respiratory rate E&M 14 /min Aurea Potts weight E&M 156 [lb_av] Aurea Potts Body Mass Index (Ratio) 23.50 kg/m2 Jessica chacha Araiza blood pressure, diastolic 91 mm[Hg] Rudy Araiza blood pressure, systolic 141 mm[Hg] Carlos Araiza pulse rate 81 /min Suni Araiza oxygen saturation, oximetry 95 % Suni Araiza respiratory rate E&M 18 /min Suni Araiza weight E&M 154 [lb_av] Suni Araiza Body Mass Index (Ratio) 22.89 kg/m2 Ingram i Wayne blood pressure, diastolic 90 mm[Hg] Darnell nielseni Wayne blood pressure, systolic 132 mm[Hg] Lorna vallejo Jocelyneyuridiavineet pulse rate 55 /min Mercedes Rubio lder oxygen saturation, oximetry 96 % Mercedes Truongmary grace respiratory rate E&M 15 /min Mercedes atkinsonvineet weight E&M 150 [lb_av] eMrcedes Jocelynegerald lder blood pressure, diastolic 80 mm[Hg] Raymundo Hernandez RN blood pressure, systolic 113 mm[Hg] Vishal Hernandez RN pulse rate 81 /min Vishal Hernandez RN oxygen saturation, oximetry 99 % Vishal Hernandez RN respiratory rate E&M 16 /min Vishal manriquez RN Body Mass Index (Ratio) 21.67 kg/m2 Vishal Hernandez RN weight E&M 142 [lb_av] Vishal Hernandez RN height E&M 68 [in_i] Vishal Hernandez RN ALLERGIES Allergy Name Onset Date Reaction Criticality Status CODEINE Low Criticality active RESULTS Date Observation Value Provider Reference Range Interpretation Location 11/16 cholesterol, non-HDL, total 186 mg/dL [facility] C, [place] [address] 11/16 lipoprotein, beta, serum, point, quantitative, calculated 153 mg/dL [facility] <=129 High C, [place] [address] 11/16 HDL CHOLESTEROL 58 mg/dL [facility] >=40 Normal C, [place] [address] 11/16 triglyceride, serum, fasting 184 mg/dL [facility] <=149 High C, [place] [address] 11/16 cholesterol, serum 244 mg/dL [facility] 30-199 High C, [place] [address] 11/16 NT-pro BNP 4305 [facility] <=450 High C, [place] [address] 11/16 aspartate aminotransferase (SGOT), serum 20 1/L [facility] 10-50 Normal C, [place] [address] 11/16 alanine aminotransferase (SGPT), serum 9 1/L [facility] 7-55 Normal C, [place] [address] 11/16 Alkaline phosphatase 42 [facility] 40-130 Normal C, [place] [address] 11/16 albumin, serum 4.3 g/dL [facility] 3.5-5.0 Normal C, [place] [address] 11/16 protein, total, serum 7.4 g/dL [facility] 6.5-8.5 Normal C, [place] [address] 11/16 bilirubin, serum, total 1.0 mg/dL [facility] 0.1-1.2 Normal C, [place] [address] 11/16 calcium, serum 9.3 mg/dL [facility] 8.5-10.3 Normal C, [place] [address] 11/16 blood glucose, random 93 mg/dL [facility] 70-199 Normal C, [place] [address] 11/16 creatine, serum 1.38 mg/dL [facility] 0.80-1.30 High C, [place] [address] 11/16 urea nitrogen, blood 20 mg/dL [facility] 6-25 Normal C, [place] [address] 11/16 anion gap, serum 12 mmol/L [facility] 2-15 Normal C, [place] [address] 11/16 carbon dioxide, venous blood 28 mmol/L [facility] 22-32 Normal C, [place] [address] 11/16 chloride, serum 100 mmol/L [facility] 97-110 Normal C, [place] [address] 11/16 potassium, serum 3.8 MMOL/L [facility] 3.3-4.9 Normal C, [place] [address] 11/16 sodium, serum 140 mmol/L [facility] 135-145 Normal C, [place] [address] 11/16 Absolute Basophils 0.07 K/CUMM [facility] 0.00-0.10 Normal C, [place] [address] 11/16 Absolute Monocytes 0.40 K/CUMM [facility] 0.20-0.80 Normal , [place] [address] 11/16 Absolute Lymphocytes 1.31 K/CUMM [facility] 0.80-3.30 Normal C, [place] [address] 11/16 Absolute Neutrophils 4.43 K/CUMM [facility] 1.50-6.50 Normal C, [place] [address] 11/16 nucleated red blood cells as percent of blood leukocytes 0.00 K/CUMM [facility] 0.00-0.01 Normal , [place] [address] 11/16 red blood cell distribution width, size density 45.1 fL [facility] 35.7-48.1 Normal C, [place] [address] 11/16 mean corpuscular hemoglobin concentration, RBC 32.1 G/DL [facility] 32.3-35.7 Low C, [place] [address] 11/16 mean corpuscular hemoglobin, RBC 29.4 pg [facility] 27.1-33.3 Normal C, [place] [address] 11/16 mean corpuscular volume, RBC 91.7 fL [facility] 81.3-96.4 Normal C, [place] [address] 11/16 erythrocyte count, whole blood 4.72 M/CUMM [facility] 4.30-5.80 Normal C, [place] [address] 11/16 mean platelet volume 9.9 fL [facility] 9.1-12.3 Normal C, [place] [address] 11/16 platelet count 242 10*3/uL [facility] 150-400 Normal C, [place] [address] 11/16 hematocrit, blood 43.3 % [facility] 38.9-50.3 Normal C, [place] [address] 11/16 hemoglobin, blood 13.9 g/dL [facility] 13.0-17.5 Normal C, [place] [address] 11/16 Estimated Glomerular Filtration Rate (calc) 53 mL/min/{1.7 3_m2} [facility] >=60 Low C, [place] [address] 02/02 coagulation managed by Antonio Kirkpatrick RN 02/02 international normalized ratio (INR) 2.5 Mercedes Black Normal 02/02 prothrombin time (patient) 29.6 s Mercedes Black 01/19 coagulation managed by Tia Acevedo RN 01/19 international normalized ratio (INR) 1.6 Tia Acevedo RN Normal 01/19 prothrombin time (patient) 19.2 s Tia Acevedo RN 01/04 coagulation managed by Vishal Hernandez RN 01/04 international normalized ratio (INR) 2.3 Vishal Hernandez RN Normal 01/04 prothrombin time (patient) 27.7 s Vishal Hernandez RN 12/22 coagulation managed by Vishal Hernandez RN 12/22 international normalized ratio (INR) 2.8 Vishal Hernandez RN Normal 20 prothrombin time (patient) 33.5 s Vishal Fitzgeralds RN 0 12/15 international normalized ratio (INR) 1.9 Heather Moraga Normal 0 12/15 prothrombin time (patient) 23.1 s Heather Ledezmais 0 12/08 international normalized ratio (INR) 2.6 Tia Acevedo RN Normal 0 12/08 prothrombin time (patient) 30.7 s Tia Acevedo RN 0 11/30 coagulation managed by Tia Acevedo RN 0 11/30 international normalized ratio (INR) 2.5 Tia Acevedo RN Normal 11/30 prothrombin time (patient) 29.7 s Tia Acevedo RN 0 11/23 coagulation managed by Vishal Hernandez RN 11/23 international normalized ratio (INR) 3.0 Vishal Hernandez RN Normal 11/23 prothrombin time (patient) 36.5 s Vishal Hernandez RN 0 11/17 coagulation managed by Vishal Hernandez RN 0 11/17 international normalized ratio (INR) 3.7 Vishal Hernandez RN Normal 0 11/17 prothrombin time (patient) 44.3 s Vishal Hernandez RN 0 11/03 prothrombin time (patient) 21.8 s Dania Saha 11/03 international normalized ratio (INR) 1.8 Dania Saha Normal 11/03 coagulation managed by Dania Saha 10/27 coagulation managed by Vishal Hernandez RN 0 10/27 international normalized ratio (INR) 2.0 Vishal Hernandez RN Normal 0 10/27 prothrombin time (patient) 24.0 s Vishal Hernandez RN 0 10/20 coagulation managed by Vishal Hernandez RN 0 10/20 international normalized ratio (INR) 1.6 Vishal Hernandez RN Normal 0 10/13 coagulation managed by Vishal Hernandez RN 0 10/13 international normalized ratio (INR) 1.8 Vishal Hernandez RN Normal 0 10/13 prothrombin time (patient) 21.8 s Vishal Hernandez RN 10/06 coagulation managed by Vishal Hernandez RN 10/06 international normalized ratio (INR) 2.6 Vishal Hernandez RN Normal 10/06 prothrombin time (patient) 31.5 s Vishal Hernandez RN 09/29 coagulation managed by Vishal Hernandez RN 09/29 international normalized ratio (INR) 2.0 Vishal Hernandez RN Normal 09/29 prothrombin time (patient) 23.4 s Vishal Hernandez RN 09/19 prothrombin time (patient) 19.8 s Dania Yifan 09/19 coagulation managed by Dania Saha 09/19 international normalized ratio (INR) 1.7 Danaikimberly Saha Normal 09/08 coagulation managed by Vishal Rodgers Hernandez RN 09/08 international normalized ratio (INR) 2.9 Leyla [place] Normal 09/08 prothrombin time (patient) 35.1 s Leyla Roberto 08/29 coagulation managed by Vishal Rodgers Hernandez RN 08/29 international normalized ratio (INR) 3.3 Mercedes Grueneharrieter Normal 08/29 prothrombin time (patient) 39.4 s Mercedes Grueneharrieter 08/21 coagulation managed by Vishal Rodgers Hernandez RN 08/21 international normalized ratio (INR) 3.3 Betty Steinberg Normal 08/21 prothrombin time (patient) 39.8 s Betty Steinberg 08/11 coagulation managed by Vishal Hernandez RN 08/11 prothrombin time (patient) 14.0 s Trynett Salguero 08/11 international normalized ratio (INR) 1.2 Trynett Salguero Normal 09/26 coagulation managed by Vishal Hernandez RN 09/26 prothrombin time (patient) 20.6 s Trynett Salguero 09/26 international normalized ratio (INR) 1.7 Trylizette Salguero Normal 09/19 coagulation managed by Vishal Hernandez RN 09/19 international normalized ratio (INR) 2.4 Nayeli Knight Normal 09/19 prothrombin time (patient) 28.9 s Nayeli Knight 09/07 coagulation managed by Vishal Hernandez RN 09/07 international normalized ratio (INR) 2.1 Mercedes Black Normal 09/07 prothrombin time (patient) 25.3 s Mercedes Black 08/28 coagulation managed by Vishal Hernandez RN 08/28 international normalized ratio (INR) 1.2 Vsihal Hernandez RN Normal 08/28 prothrombin time (patient) 14.4 s Vishal Hernandez RN 08/06 coagulation managed by Vishal Hernandez RN 08/06 international normalized ratio (INR) 1.3 Zulema Connors Normal 08/06 prothrombin time (patient) 15.4 s Zulema Waylon coagulation managed by Vishal Hernandez RN international normalized ratio (INR) 1.6 Vishal Hernandez RN Normal prothrombin time (patient) 19.3 s Vishal Hernandez RN 0 coagulation managed by Vishal Hernandez RN 0 prothrombin time (patient) 39.5 s Michelle Adelina international normalized ratio (INR) 3.3 Michelle Adelina Normal 04/24 coagulation managed by Vishal Hernandez RN 04/24 prothrombin time (patient) 27.7 s Alejandra Booth 04/24 international normalized ratio (INR) 2.3 Alejandra [place] Normal 04/11 coagulation managed by Vishal Hernandez RN 04/11 international normalized ratio (INR) 2.1 BrendanKathy Preciado Normal 04/11 prothrombin time (patient) 25.1 s Brendan Preciado 04/04 coagulation managed by Vishal Hernandez RN 04/04 international normalized ratio (INR) 4.9 Mercedes Black Normal 03/21 coagulation managed by Vishal Hernandez RN 03/21 international normalized ratio (INR) 1.6 Vishal Hernandez RN Normal 03/07 coagulation managed by Dania Saha 03/07 international normalized ratio (INR) 1.8 Charito O'Ricki Normal 03/07 prothrombin time (patient) 21.6 s Charito O'Ricki 02/17 coagulation managed by Vishal Hernandez RN 02/17 prothrombin time (patient) 40.5 s Alejandra [place] 02/17 international normalized ratio (INR) 3.4 Alejandra [place] Normal 01/31 coagulation managed by Vishal Hernandez RN 01/31 international normalized ratio (INR) 1.8 Vishal Hernandez RN Normal 01/31 prothrombin time (patient) 21.4 s Vishal Hernandez RN 01/16 coagulation managed by Vishal Hernandez RN 01/16 international normalized ratio (INR) 1.8 Brendan Preciado Normal 01/16 prothrombin time (patient) 21.6 s Brendan Preicado 12/30 coagulation managed by Vishal Hernandez RN 12/30 international normalized ratio (INR) 1.7 Sherkeitha Douglas Normal 12/30 prothrombin time (patient) 20.6 s Sherkeitha Douglas 12/15 coagulation managed by Vishal Hernandez RN 12/15 international normalized ratio (INR) 2.3 Sherkeitha Douglas Normal 12/15 prothrombin time (patient) 28.1 s Sherkeitha Douglas 12/08 coagulation managed by Vishal Hernandez RN 12/08 international normalized ratio (INR) 1.7 Mercedes Evannemichoacano Normal 12/08 prothrombin time (patient) 20.5 s Mercedes Rodrigueer 11/30 coagulation managed by Vishal Hernandez RN 11/30 international normalized ratio (INR) 1.3 Mercedes Gruenenfelder Normal 11/30 prothrombin time (patient) 15.2 s Mercedes Gruenenfelder 11/15 coagulation managed by Vishal Hernandez RN 11/15 international normalized ratio (INR) 2.0 Zulemaomkar Connors Normal 11/15 prothrombin time (patient) 23.9 s Zulema Connors 11/01 coagulation managed by Vishal Hernandez RN 11/01 international normalized ratio (INR) 2.3 Mercedes Gruenenfelder Normal 11/01 prothrombin time (patient) 27.8 s Mercedes Gruenenfelder 10/19 international normalized ratio (INR) 1.4 Zulemashashi Connors Normal 10/19 prothrombin time (patient) 16.5 s Zulema Connors 10/14 coagulation managed by Vishal Hernandez RN 10/14 international normalized ratio (INR) 1.2 Mercedes Gruenenfelder Normal 10/14 prothrombin time (patient) 14.5 s Mercedes Gruenenfelder 09/28 coagulation managed by Vishal Hernandez RN 09/28 international normalized ratio (INR) 1.8 Mercedes Gruenenfelder Normal 09/28 prothrombin time (patient) 22.2 s Mercedes Gruenenfelder 09/16 coagulation managed by Vishal Hernandez RN 09/16 international normalized ratio (INR) 2.3 Brendanernie Preciado Normal 09/16 prothrombin time (patient) 27.6 s Brendan Preciado 09/09 coagulation managed by Vishal Hernandez RN 09/09 international normalized ratio (INR) 2.4 Mercedes Gruenenfelder Normal 09/09 prothrombin time (patient) 28.6 s Mercedes Gruenenfelder 09/02 coagulation managed by Vishal Hernandez RN 09/02 international normalized ratio (INR) 2.8 Zulema Waylon Normal 09/02 prothrombin time (patient) 33.1 s Zulema Connors 08/26 coagulation managed by Vishal Hernandez RN 08/26 international normalized ratio (INR) 3.5 Zulema Connors Normal 08/26 prothrombin time (patient) 41.6 s Zulema Connors 08/19 coagulation managed by Dania Saha 08/19 international normalized ratio (INR) 3.1 Zulema Waylon Normal 08/19 prothrombin time (patient) 37.4 s Zulema Connors 08/12 coagulation managed by Vishal Hernandez RN 08/12 international normalized ratio (INR) 4.0 Zulema Waylon Normal 08/12 prothrombin time (patient) 48.4 s Zulema Connors 09/22 coagulation managed by Vishal Hernandez RN 09/22 international normalized ratio (INR) 1.3 Brendan Preciado Normal 09/22 prothrombin time (patient) 16.0 s Brendan Preciado 09/15 coagulation managed by Dania Saha 09/15 international normalized ratio (INR) 2.6 Zulema Waylon Normal 09/15 prothrombin time (patient) 30.8 s Zulema Connors 08/24 coagulation managed by Dania Saha 08/24 international normalized ratio (INR) 2.6 Mercedes Grpeggynenfelder Normal 08/24 prothrombin time (patient) 31.2 s Mercedes Rodrigueer 08/17 coagulation managed by Vishal Hernandez RN 08/17 international normalized ratio (INR) 1.7 Brendan Preciado Normal 08/17 prothrombin time (patient) 2.5 s Brendan Preciado 08/07 coagulation managed by Vishal Hernandez RN 08/07 international normalized ratio (INR) 1.3 Vishal Hernandez RN Normal 08/07 prothrombin time (patient) 15.9 s Vishal Hernandez RN thyroid stimulating hormone, serum 4.260 u[IU]/mL [facility] 0.450-4.50 0 thyroxine, serum, free 1.36 ng/dL [facility] 0.82-1.77 bilirubin, serum, direct 0.28 mg/dL [facility] 0.00-0.40 lipoprotein, beta, serum, point, quantitative, calculated 215 mg/dL [facility] 0-99 High HDL cholesterol, serum 46 mg/dL [facility] >39 triglyceride, serum, random 138 mg/dL [facility] 0-149 cholesterol, serum 287 mg/dL [facility] 100-199 High alanine aminotransferase (SGPT), serum 11 1/L [facility] 0-44 aspartate aminotransferase (SGOT), serum 18 1/L [facility] 0-40 alkaline phosphatase, serum 52 1/L [facility] 39-117 bilirubin, serum, total 1.5 mg/dL [facility] 0.0-1.2 High albumin/globulin ratio, serum 1.2 [facility] 1.2-2.2 globulin, serum 3.6 [facility] 1.5-4.5 albumin, serum 4.4 g/dL [facility] 3.7-4.7 protein, total, serum 8.0 g/dL [facility] 6.0-8.5 calcium, serum 9.9 mg/dL [facility] 8.6-10.2 carbon dioxide, venous blood 24 mmol/L [facility] 20-29 chloride, serum 103 mmol/L [facility] 96-106 potassium, serum 5.7 mmol/L [facility] 3.5-5.2 High sodium, serum 141 mmol/L [facility] 589-686 4036/1 0/31 urea nitrogen/creatinin e ratio, serum 21 [facility] 10-24 eGFR if 43 mL/min/{1.7 3_m2} [facility] >59 Low eGFR if not 37 mL/min/{1.7 3_m2} [facility] >59 Low creatinine, serum 1.80 mg/dL [facility] 0.76-1.27 High urea nitrogen, blood 38 mg/dL [facility] 8-27 High blood glucose, random 90 mg/dL [facility] 65-99 coagulation managed by Vishal Hernandez RN international normalized ratio (INR) 1.5 Celine Block Normal prothrombin time (patient) 18.1 s Celine Block coagulation managed by Vishal Hernandez RN international normalized ratio (INR) 1.5 Nayeli Karlo Normal prothrombin time (patient) 18.3 s Nayeli Duval 2020/0 915 coagulation managed by Vishal Hernandez RN 0 15 international normalized ratio (INR) 2.1 Tonsha Padilla Normal 0 915 prothrombin time (patient) 25.0 s Tonsha Padilla 2020/0 18 coagulation managed by Vishal Hernandez RN 0 18 international normalized ratio (INR) 2.7 Tonsha Padilla Normal 2019/0 18 prothrombin time (patient) 31.9 s Tonsha Padilla 2020/0 804 coagulation [place] [address] 804 international normalized ratio (INR) 3.0 Tonsha Padilla Normal 2020/0 804 prothrombin time (patient) 36.2 s Tonsha Padilla 2020/0 20 coagulation managed by Vishal Hernandez RN 0 02/21 international normalized ratio (INR) 1.8 Zulema Waylon Normal 2020/0 02/21 prothrombin time (patient) 21.6 s Zulema Connors 2019/0 02/08 coagulation managed by Vishal Hernandez RN 0 02/08 international normalized ratio (INR) 1.3 Tonsha Padilla Normal 2020/0 02/08 prothrombin time (patient) 15.5 s Tonsha Padilla 2020/0 01/24 coagulation managed by Dania Saha 2020/0 01/24 international normalized ratio (INR) 2.5 Zulema Connors Normal 2020/0 01/24 prothrombin time (patient) 29.8 s Zulema Connors 2020/0 01/10 [place] [address] 01/10 international normalized ratio (INR) 2.6 Zulema Connors Normal 2020/0 01/10 prothrombin time (patient) 30.8 s Zulema Connors 2020/0 12/23 [place] [address] 12/23 international normalized ratio (INR) 3.6 Zulema Connors Normal 2020/0 12/23 prothrombin time (patient) 42.7 s Zulema Connors 2020/0 12/13 coagulation managed by Vishal Hernandez RN 0 12/13 international normalized ratio (INR) 5.3 Zulema Connors Normal 0 12/13 prothrombin time (patient) 63.2 s Zulema Connors 2020/0 11/29 international normalized ratio (INR) 1.9 Tonsha Padilla Normal 2019/0 11/29 prothrombin time (patient) 22.9 s Tonsha Padilla 2020/0 11/26 coagulation managed by Dania Saha 0 11/26 prothrombin time (patient) 18.1 s Celine Block 20200 11/26 international normalized ratio (INR) 1.5 Celine Block Normal 2020/0 11/15 coagulation managed by Vishal Hernandez RN 2020/0 11/15 international normalized ratio (INR) 2.2 Vishal Hernandez RN Normal 2020/0 11/15 prothrombin time (patient) 26.7 s Vishal Hernandez RN 2020/0 11/08 coagulation managed by Dania Saha 2020/0 11/08 prothrombin time (patient) 40.2 s Celine Block 2020/0 11/08 international normalized ratio (INR) 3.4 Celine Block Normal 2020/0 10/27 coagulation managed by Vishal Hernandez RN 2020/0 10/13 coagulation managed by Vishal Hernandez RN 2020/0 10/13 international normalized ratio (INR) 2.3 Tonsha Padilla Normal 2020/0 10/13 prothrombin time (patient) 28.0 s Tonsha Padilla 2020/0 10/06 coagulation managed by Vishal Hernandez RN 0 10/06 international normalized ratio (INR) 1.7 Tonsha Padilla Normal 2020/0 10/06 prothrombin time (patient) 19.8 s Tonsha Padilla 2020/0 09/22 coagulation managed by Vishal Hernandez RN 0 09/22 international normalized ratio (INR) 2.5 Tonsha Padilla Normal 20200 09/22 prothrombin time (patient) 29.2 s Tonsha Padilla 2020/0 09/09 free thyroxine index 3.1 [facility] 1.2-4.9 0 09/09 triiodothyronine resin uptake 31 % [facility] 24-39 2019/0 09/09 thyroxine, serum, total 9.9 ug/dL [facility] 4.5-12.0 2019/0 09/09 alanine aminotransferase (SGPT), serum 12 1/L [facility] 0-44 2019/0 09/09 aspartate aminotransferase (SGOT), serum 17 1/L [facility] 0-40 2019/0 09/09 alkaline phosphatase, serum 54 1/L [facility] 39-117 2019/0 05 bilirubin, serum, direct 0.26 mg/dL [facility] 0.00-0.40 2019/0 205 bilirubin, serum, total 1.2 mg/dL [facility] 0.0-1.2 2019/0 09/09 albumin, serum 4.1 g/dL [facility] 3.8-4.8 2019/0 09/09 protein, total, serum 7.0 g/dL [facility] 6.0-8.5 2019/0 09/08 coagulation managed by Maggie Mera 0 09/08 international normalized ratio (INR) 2.0 Tonsha Padilla Normal 2020/0 09/08 prothrombin time (patient) 24.2 s Tonsha Padilla 2020/0 09/01 coagulation managed by Vishal Hernandez RN 0 09/01 international normalized ratio (INR) 1.3 Tonsha Padilla Normal 20200 09/01 prothrombin time (patient) 15.8 s Tonsha Padilla 2020/0 08/25 coagulation managed by Vishal Hernandez RN 08/25 international normalized ratio (INR) 2.2 Tonsha Padilla Normal 08/25 prothrombin time (patient) 25.9 s Tonsha Padilla 08/18 international normalized ratio (INR) 2.6 Tonsha Padilla Normal 08/18 prothrombin time (patient) 31.2 s Tonsha Padilla coagulation managed by Antonio Kirkpatrick RN international normalized ratio (INR) 2.9 Tonsha Padilla Normal prothrombin time (patient) 34.4 s Tonsha Padilla 09/21 coagulation managed by Vishal Hernandez RN 09/21 international normalized ratio (INR) 1.6 Zulema Connors Normal 09/21 prothrombin time (patient) 18.7 s Zulema Connors 09/07 coagulation managed by Vishal Hernandez RN 09/07 international normalized ratio (INR) 2.5 Brendan Preciado Normal 09/07 prothrombin time (patient) 30.4 s Brendan Preciado 08/29 coagulation managed by Vishal Hernandez RN 08/29 prothrombin time (patient) 43.5 s Celine Block 08/29 international normalized ratio (INR) 3.6 Celine Block Normal 08/23 coagulation managed by Vishal Hernandez RN 08/23 international normalized ratio (INR) 3.9 Zulema Connors Normal 08/23 prothrombin time (patient) 46.5 s Zulema Connors 08/09 coagulation managed by Vishal Hernandez RN 08/09 international normalized ratio (INR) 2.9 Zulema Connors Normal 08/09 prothrombin time (patient) 34.6 s Zulema Connors coagulation managed by Vishal Hernandez RN international normalized ratio (INR) 1.2 Vishal Hernandez RN Normal prothrombin time (patient) 14.3 s Vishal Hernandez RN international normalized ratio (INR) 2.4 Zulema Connors Normal prothrombin time (patient) 28.6 s Zulema Connors coagulation managed by Vishal Hernandez RN international normalized ratio (INR) 2.7 Brendan Preciado Normal prothrombin time (patient) 32.2 s Brendan Preciado 04/22 coagulation managed by Cortez Leija 04/22 international normalized ratio (INR) 1.4 Cortez Leija Normal 04/10 coagulation managed by Tammy Saha 04/10 international normalized ratio (INR) 2.2 Dania Yifan Normal 04/02 coagulation managed by Maggie Ernie Ede PROGRAM ENGAGEMENT DIRECTOR Maggie N Ede 04/02 international normalized ratio (INR) 1.9 Maggie N Ede Normal 04/02 prothrombin time (patient) 22.2 s Maggie N Ede 03/26 coagulation managed by Maggie N Ede PROGRAM ENGAGEMENT DIRECTOR Maggie N Ede 03/26 international normalized ratio (INR) 2.5 Maggie N Ede Normal 03/26 prothrombin time (patient) 30.0 s Maggie N Ede 02/27 coagulation managed by Vishal Hernandez RN 02/27 prothrombin time (patient) 14.5 s Corina Curtis 02/27 international normalized ratio (INR) 1.2 Corina Acevedo Normal 02/18 coagulation managed by Vishal Hernandez RN 02/18 prothrombin time (patient) 24.2 s Zulema Connors 02/18 international normalized ratio (INR) 2.0 Zulemashashi Connors Normal 02/09 coagulation managed by Vishal Hernandez RN 02/09 international normalized ratio (INR) 2.8 Zulemashashi Connors Normal 02/09 prothrombin time (patient) 34.0 s Zulema Connors 01/06 coagulation managed by Vishal Hernandez RN 01/06 international normalized ratio (INR) 2.4 Zulemaomkar Connors Normal 01/06 prothrombin time (patient) 29.3 s Zulema Connors 12/26 alanine aminotransferase (SGPT), serum 14 1/L [facility] 0-44 12/26 aspartate aminotransferase (SGOT), serum 17 1/L [facility] 0-40 12/26 alkaline phosphatase, serum 44 1/L [facility] 39-117 12/26 bilirubin, serum, direct 0.16 mg/dL [facility] 0.00-0.40 12/26 bilirubin, serum, total 0.6 mg/dL [facility] 0.0-1.2 12/26 albumin, serum 4.2 g/dL [facility] 3.5-4.8 12/26 protein, total, serum 6.9 g/dL [facility] 6.0-8.5 12/26 thyroid stimulating hormone, serum 1.220 u[IU]/mL [facility] 0.450-4.50 0 12/26 thyroxine, serum, free 1.51 ng/dL [facility] 0.82-1.77 12/25 coagulation managed by Vishal Hernandez RN 12/25 international normalized ratio (INR) 3.0 Zulema Connros Normal 12/25 prothrombin time (patient) 36.1 s Zulema Connors 12/12 coagulation managed by Vishal Hernandez RN 12/12 international normalized ratio (INR) 2.5 Knox Hsieh Normal 12/12 prothrombin time (patient) 30.5 s Irvin Hsieh 12/02 coagulation managed by Vishal Hernandez RN 12/02 international normalized ratio (INR) 1.3 Irvin Hsieh Normal 12/02 prothrombin time (patient) 15.6 s Knox Hsieh 11/07 coagulation managed by Vishal Hernandez RN 11/07 international normalized ratio (INR) 1.8 Zulema Connors Normal 11/07 prothrombin time (patient) 21.8 s Zulema Connors 10/31 coagulation managed by Vishal Hernandez RN 10/31 international normalized ratio (INR) 2.5 Knox Hsieh Normal 10/31 prothrombin time (patient) 29.9 s Irvin Hsieh 10/22 coagulation managed by Vishal Hernandez RN 10/22 international normalized ratio (INR) 2.1 Harper Fred Normal 10/22 prothrombin time (patient) 25.2 s Harper Fred 10/10 coagulation managed by Ibeth Fuller 10/10 international normalized ratio (INR) 2.1 Brendan Preciado Normal 10/10 prothrombin time (patient) 24.9 s Brendan Neumannenson 09/24 international normalized ratio (INR) 2.1 Harper Fred Normal 09/24 prothrombin time (patient) 24.7 s Harper Fred 09/05 coagulation managed by Vishal Hernandez RN 09/05 international normalized ratio (INR) 2.1 Zulema Connors Normal 09/05 prothrombin time (patient) 25.4 s Zulema Connors 09/25 coagulation managed by Ibeth Fuller 09/25 international normalized ratio (INR) 2.2 Zulema Connors Normal 09/25 prothrombin time (patient) 26.3 s Zulema Connors 09/14 coagulation managed by Vishal Hernandez RN 09/14 international normalized ratio (INR) 2.0 Zulema Connors Normal 09/14 prothrombin time (patient) 23.8 s Zulema Connors 09/07 coagulation managed by Ibeth Fuller 09/07 prothrombin time (patient) 23.4 s Zulema Connors 09/07 international normalized ratio (INR) 2.0 Zulema Connors Normal 08/30 coagulation managed by Vishal Hernandez RN 08/30 international normalized ratio (INR) 2.6 Zulema Connors Normal 08/30 prothrombin time (patient) 31.0 s Zulema Connors 08/27 international normalized ratio (INR) 3.4 Lida Linares RN Normal 08/25 coagulation managed by Vishal Hernandez RN 08/25 international normalized ratio (INR) 6.1 Zulema Connors Normal 08/25 prothrombin time (patient) 73.4 s Zulema Connors 08/23 coagulation managed by Vishal Hernandez RN 08/23 international normalized ratio (INR) 7.2 Zulemaomkar Connors Normal 08/23 prothrombin time (patient) 86.9 s Zulemaomkar Connors 08/23 coagulation managed by Vishal Hernandez RN 08/23 international normalized ratio (INR) 7.2 Vishal Hernandez RN Normal 08/23 prothrombin time (patient) 86.9 s Vishal Hernandez RN 08/12 coagulation managed by Vishal Hernandez RN 08/12 international normalized ratio (INR) 3.1 Irvin Valenciaam Normal 08/12 prothrombin time (patient) 37.6 s Knox Hsieh coagulation managed by Vishal Hernandez RN international normalized ratio (INR) 1.9 Zulema Connors Normal prothrombin time (patient) 23.0 s Zulema Connors coagulation managed by Vishal Hernandez RN international normalized ratio (INR) 1.7 Zulema Connors Normal prothrombin time (patient) 20.0 s Zulemaomkar Connors 04/28 coagulation managed by Vishal Hernandez RN 04/28 international normalized ratio (INR) 2.8 Harperlizy Ibarra Normal 04/28 prothrombin time (patient) 33.7 s Harper Fred 04/21 coagulation managed by Vishal Hernandez RN 04/21 international normalized ratio (INR) 3.0 Zulemaomkar Connors Normal 04/21 prothrombin time (patient) 35.7 s Zulemaomkar Connors 04/14 coagulation managed by Rupa Woodward 04/14 prothrombin time (patient) 59.3 s Mercedes Black 04/14 international normalized ratio (INR) 4.9 Mercedes Black Normal 03/25 coagulation managed by Vishal Woodward 03/25 international normalized ratio (INR) 2.3 Mercedes Black Normal 03/25 prothrombin time (patient) 27.2 s Mercedes Black 03/05 coagulation managed by Vishal Hernandez RN 03/05 international normalized ratio (INR) 2.1 Harper Fred Normal 03/05 prothrombin time (patient) 25.5 s Harper Fred 02/28 coagulation managed by Vishal Hernandez RN 02/28 prothrombin time (patient) 48.4 s Harper Fred 02/28 international normalized ratio (INR) 4.0 Harper Fred Normal 02/18 coagulation managed by Vishal Hernandez RN 02/18 international normalized ratio (INR) 3.2 Zulema Connors Normal 02/18 prothrombin time (patient) 38.9 s Zulema Connors 02/04 coagulation managed by Vishal Hernandez RN 02/04 international normalized ratio (INR) 1.8 Zulema Connors Normal 02/04 prothrombin time (patient) 22.2 s Zulema Connors 01/28 coagulation managed by Vishal Hernandez RN 01/28 international normalized ratio (INR) 2.3 Harper Fred Normal 01/28 prothrombin time (patient) 27.8 s Harper Fred 01/22 coagulation managed by Vishal Hernandez RN 01/22 international normalized ratio (INR) 5.1 Harper Fred Normal 01/22 prothrombin time (patient) 60.9 s Harper Fred 12/31 coagulation managed by Lotus Garcia RN 12/31 international normalized ratio (INR) 2.9 Harper Fred Normal 12/31 prothrombin time (patient) 35.3 s Harper Fred 12/23 coagulation managed by Rupa Woodward 12/23 international normalized ratio (INR) 2.5 Lewis Ann Normal 12/23 prothrombin time (patient) 30.2 s Lewis Ann 12/09 coagulation managed by Vishal Hernandez RN 12/09 international normalized ratio (INR) 1.3 Harper Fred Normal 12/09 prothrombin time (patient) 16.1 s Harper Fred 11/27 coagulation managed by Vishal Hernandez RN 11/27 international normalized ratio (INR) 2.5 Harper Fred Normal 11/27 prothrombin time (patient) 30.4 s Harper Fred 11/19 coagulation managed by Lotus Garcia RN 11/19 international normalized ratio (INR) 1.8 Harper Fred Normal 11/19 prothrombin time (patient) 21.5 s Harper Fred 10/28 coagulation managed by Vishal Hernandez RN 10/28 international normalized ratio (INR) 2.5 Harper Fred Normal 10/28 prothrombin time (patient) 30.2 s Harper Fred 10/21 coagulation managed by Vishal Hernandez RN 10/21 international normalized ratio (INR) 3.6 Brendan Preciado Normal 10/21 prothrombin time (patient) 42.6 s Brendan Preciado 10/14 coagulation managed by Vishal Hernandez RN 10/14 prothrombin time (patient) 47.8 s Alejandra Emmy 10/14 international normalized ratio (INR) 4.0 Alejandra Emmy Normal 10/08 coagulation managed by Vishal Hernandez RN 10/08 international normalized ratio (INR) 4.1 Brendan Preciado Normal 10/08 prothrombin time (patient) 49.2 s Brendan Preciado 10/02 coagulation managed by Vishal Hernandez RN 10/02 international normalized ratio (INR) 1.2 Mercedes Wayne Normal 10/02 prothrombin time (patient) 14.7 s Mercedes Rodrigueer 09/24 coagulation managed by Vishal Hernandez RN 09/24 international normalized ratio (INR) 1.7 Knoxgreta Valenciaam Normal 09/24 prothrombin time (patient) 20.4 s Irvin Hsieh 2017/0 09/17 coagulation managed by Vishal Hernandez RN 09/17 international normalized ratio (INR) 3.7 Harper Fred Normal 09/17 prothrombin time (patient) 44.6 s Harper Fred 0 09/11 coagulation managed by Vishal Hernandez RN 09/11 international normalized ratio (INR) 5.0 Harper Fred Normal 09/11 prothrombin time (patient) 60.3 s Harper Fred 0 08/26 coagulation managed by Vishal Hernandez RN 08/26 international normalized ratio (INR) 1.8 Harper Fred Normal 08/26 prothrombin time (patient) 21.4 s Harper Fred 0 08/21 coagulation managed by Lida Winters RN 08/21 international normalized ratio (INR) 3.5 Harper Fred Normal 08/21 prothrombin time (patient) 42.6 s Harper Fred 0 08/16 coagulation managed by Ruby Ramirez RN 08/16 international normalized ratio (INR) 2.9 Knox Hsieh Normal 08/16 prothrombin time (patient) 34.9 s Irvin Hsieh 08/14 international normalized ratio (INR) 4.8 Harper Fred Normal 08/14 prothrombin time (patient) 57.2 s Harper Fred 0 08/12 coagulation managed by Vishal Hernandez RN 08/12 international normalized ratio (INR) 6.9 Harper Fred Normal 08/12 prothrombin time (patient) 83.3 s Harper Fred coagulation managed by Lida Winters RN international normalized ratio (INR) 3.0 Harper Fred Normal prothrombin time (patient) 36.0 s Harper Fred 10/01 coagulation managed by Vishal Hernandez RN 10/01 international normalized ratio (INR) 5.2 Harper Fred Normal 10/01 prothrombin time (patient) 62.5 s Harper Fred 08/24 coagulation managed by Vishal Hernandez RN 08/24 international normalized ratio (INR) 1.5 Harper Fred Normal 08/24 prothrombin time (patient) 18.1 s Harper Fred 08/19 coagulation managed by Vishal Hernandez RN 08/19 international normalized ratio (INR) 4.4 Harper Fred Normal 08/19 prothrombin time (patient) 53.0 s Harper Fred 08/17 coagulation managed by Vishal Hernandez RN 08/17 international normalized ratio (INR) 5.7 Harper Fred Normal 08/17 prothrombin time (patient) 68.7 s Harper Fred 08/10 coagulation managed by Vishal Hernandez RN 08/10 international normalized ratio (INR) 2.4 Harper Fred Normal 08/10 prothrombin time (patient) 29.3 s Harper Fred 08/05 coagulation managed by Vishal Hernandez RN 08/05 international normalized ratio (INR) 3.2 Mercedes Alexirandier Normal 08/05 prothrombin time (patient) 38.0 s Mercedes Grrandier coagulation managed by Lida Winters RN international normalized ratio (INR) 7.1 Harper Fred Normal prothrombin time (patient) 85.2 s Harper Fred coagulation managed by Lida Winters RN international normalized ratio (INR) 7.7 Brendan Preciado Normal prothrombin time (patient) 92.2 s Brendan Preciado coagulation managed by Lida Winters RN international normalized ratio (INR) 1.1 Harper Fred Normal prothrombin time (patient) 13.4 s Harper Fred 04/24 coagulation managed by Vishal Hernandez RN 04/24 international normalized ratio (INR) 2.6 Harper Fred Normal 04/24 prothrombin time (patient) 31.6 s Harper Fred 03/27 coagulation managed by Vishal Hernandez RN 03/27 international normalized ratio (INR) 2.6 Harper Fred Normal 03/27 prothrombin time (patient) 30.7 s Harper Fred 02/27 coagulation managed by Vishal Hernandez RN 02/27 international normalized ratio (INR) 2.3 Harper Fred Normal 02/27 prothrombin time (patient) 27.5 s Harper Fred 02/13 coagulation managed by Vishal Hernandez RN 02/13 international normalized ratio (INR) 3.5 Harper Fred Normal 02/13 prothrombin time (patient) 41.5 s Harper Fred 02/01 coagulation managed by Vishal Hernandez RN 02/01 international normalized ratio (INR) 2.1 Harper Fred Normal 02/01 prothrombin time (patient) 24.9 s Harper Fred 01/18 coagulation managed by Vishal Hernandez RN 01/18 international normalized ratio (INR) 3.6 Brendan Preciado Normal 01/18 prothrombin time (patient) 43.7 s Brendan Preciado 01/08 international normalized ratio (INR) 1.2 Harper Fred Normal 01/08 prothrombin time (patient) 14.4 s Harper Fred 12/13 coagulation managed by Vishal Hernandez RN 12/13 international normalized ratio (INR) 1.4 Harper Fred Normal 12/13 prothrombin time (patient) 17.2 s Harper Fred 12/04 coagulation managed by Vishal Hernandez RN 12/04 international normalized ratio (INR) 1.3 Mary Winters Normal 12/04 prothrombin time (patient) 15.5 s Mary Winters 11/29 international normalized ratio (INR) 3.4 Vishal Hernandez RN Normal 11/29 prothrombin time (patient) 36.3 s Vishal Fitzgeralds RN 2017/0 11/08 coagulation managed [place] [id number] 11/08 international normalized ratio (INR) 1.3 Brendan Preciado Normal 11/08 prothrombin time (patient) 16.1 s Brendan Preciado 10/31 coagulation managed by Vishal Fitzgeralds RN Vishal Hernandez RN 0 10/31 international normalized ratio (INR) 5.5 Vishal Fitzgeralds RN Normal 10/31 prothrombin time (patient) 58.9 s Vishal Hernandez RN 0 09/28 coagulation managed by Vishal Hernandez RN Vishal Hernandez RN 0 09/28 international normalized ratio (INR) 1.6 Vishal Fitzgeralds RN Normal 09/28 prothrombin time (patient) 19.4 s Vishal Fitzgeralds RN 09/12 coagulation managed by Vishal Fitzgeralds RN Vishal Hernandez RN 09/12 international normalized ratio (INR) 1.9 Vishal Fitzgeralds RN Normal 09/12 prothrombin time (patient) 20.8 s Vishal Hernandez RN 08/29 coagulation managed by Zarina Kidd 08/29 international normalized ratio (INR) 1.5 Vishal Fitzgeralds RN Normal 08/29 prothrombin time (patient) 16.0 s Vishal Fitzgeralds RN 08/24 coagulation managed by Vishal Fitzgeralds RN Vishal Hernandez RN 08/24 international normalized ratio (INR) 1.5 Vishal Fitzgeralds RN Normal 08/24 prothrombin time (patient) 16.3 s Vishal Hernandez RN international normalized ratio (INR) 1.3 Lida Tiny RN Normal 09/26 coagulation managed by Vishal Hernandez RN Vishal Hernandez RN 09/26 international normalized ratio (INR) 3.1 Vishal Hernandez RN Normal 09/26 prothrombin time (patient) 34.4 s Vishal Fitzgeralds RN 08/11 coagulation managed by Vishal Hernandez RN Vishal Hernandez RN 08/11 international normalized ratio (INR) 1.7 Vishal Hernandez RN Normal 08/11 prothrombin time (patient) 19.1 s Vishal Hernandez RN international normalized ratio (INR) 6.4 Lida Franks RN Normal prothrombin time (patient) 73.7 s Lida Franks RN coagulation managed by Ke Moon RN international normalized ratio (INR) 3.0 Ke Moon RN Normal prothrombin time (patient) 33.5 s Ke Moon RN 05/03 coagulation managed by Vishal Hernandez RN Vishal Hernandez RN 05/03 international normalized ratio (INR) 2.6 Vishal Hernandez RN Normal 05/03 prothrombin time (patient) 29.4 s Vishal Hernandez RN 04/24 coagulation managed by Vishal Hernandez RN Vishal Hernandez RN 04/24 international normalized ratio (INR) 4.3 Vishal Hernandez RN Normal 04/24 prothrombin time (patient) 48.5 s Vishal Hernandez RN 04/18 coagulation managed by Vishal Fitzgeralds RN Vishal Hernandez RN 04/18 international normalized ratio (INR) 3.6 Vishal Hernandez RN Normal 04/18 prothrombin time (patient) 40.2 s Vishal Hernandez RN 04/12 coagulation managed by Vishal Hernandez RN Vishal Hernandez RN 04/12 international normalized ratio (INR) 1.2 Vishal Hernandez RN Normal 04/12 prothrombin time (patient) 13.1 s Vishal Hernandez RN 04/02 coagulation managed by Vishal Hernandez RN Vishal Hernandez RN 04/02 international normalized ratio (INR) 1.5 Vishal Hernandez RN Normal 04/02 prothrombin time (patient) 15.9 s Vishal Hernandez RN 03/29 international normalized ratio (INR) 4.2 Vishal Hernandez RN Normal 03/29 prothrombin time (patient) 50.3 s Vishal Hernandez RN 02/07 coagulation managed by Vishal Hernandez RN Vishal Hernandez RN 02/07 international normalized ratio (INR) 1.4 Vishal Hernandez RN Normal 02/07 prothrombin time (patient) 15.2 s Vishal Hernandez RN 01/22 coagulation managed by Vishal Hernandez RN Vishal Hernandez RN 01/22 international normalized ratio (INR) 1.6 Vishal Hernandez RN Normal 01/22 prothrombin time (patient) 17.4 s Vishal Hernandez RN 12/28 coagulation managed by Vishal Fitzgeralds RN Vishal Fitzgeralds RN 0 12/28 international normalized ratio (INR) 2.4 Vishal Fitzgeralds RN Normal 12/28 prothrombin time (patient) 26.7 s Vishal Fitzgeralds RN 12/11 international normalized ratio (INR) 2.4 Vishal Fitzgeralds RN Normal 12/11 prothrombin time (patient) 26.0 s Vishal Fitzgeralds RN 11/09 international normalized ratio (INR) 2.8 Lida Franks RN Normal 11/09 prothrombin time (patient) 31.3 s Lida Franks RN 11/06 coagulation managed by Vishal Fitzgeralds RN Vishal Fitzgeralds RN 11/06 international normalized ratio (INR) 4.1 Vishal Fitzgeralds RN Normal 11/06 prothrombin time (patient) 46.5 s Vishal Fitzgeralds RN 10/30 coagulation managed by Vishal Fitzgeralds RN Vishal Fitzgeralds RN 10/30 international normalized ratio (INR) 3.3 Vishal Fitzgeralds RN Normal 10/30 prothrombin time (patient) 37.6 s Vishal Fitzgeralds RN 10/19 international normalized ratio (INR) 1.5 Lida Franks RN Normal 10/19 prothrombin time (patient) 16.3 s Lida Franks RN 09/26 coagulation managed by Vishal Fitzgeralds RN Vishal Hernandez RN 09/26 international normalized ratio (INR) 2.3 Vishal Fitzgeralds RN Normal 09/26 prothrombin time (patient) 25.0 s Vishal iFtzgeralds RN 09/09 coagulation managed by Vishal Fitzgeralds RN Vishal Fitzgeralds RN 09/09 international normalized ratio (INR) 2.2 Mercedes Black Normal 09/09 prothrombin time (patient) 26.2 s Mercedes Black 08/18 coagulation managed by Ke Moon RN 08/18 international normalized ratio (INR) 2.6 Ke Moon RN Normal 08/18 prothrombin time (patient) 29.6 s Ke Moon RN international normalized ratio (INR) 4.0 Lida Franks RN Normal prothrombin time (patient) 45.8 s Lida Franks RN 09/14 coagulation managed by Vishal Hernandez RN 09/14 international normalized ratio (INR) 2.7 Vishal Silva RN Normal 09/14 prothrombin time (patient) 30.1 s Vishal Silva RN 09/08 prothrombin time (patient) 39.4 s Vishal Silva RN 09/08 international normalized ratio (INR) 3.5 Vishal Silva RN Normal 09/05 coagulation managed by Vishal Hernandez RN 09/05 international normalized ratio (INR) 5.1 Vishal Hernandez RN Normal 09/05 prothrombin time (patient) 58.3 s Vishal Hernandez RN 08/29 coagulation managed by Lida Winters RN 08/29 international normalized ratio (INR) 1.2 Lida Winters RN Normal 08/29 prothrombin time (patient) 13.3 s Lida Winters RN 08/15 coagulation managed by Vishal Hernandez RN 08/15 international normalized ratio (INR) 1.9 Vishal Hernandez RN Normal 08/15 prothrombin time (patient) 20.5 s Vishal Hernandez RN 08/08 coagulation managed by Vishal Hernandez RN 08/08 international normalized ratio (INR) 4.7 Vishal Hernandez RN Normal 08/08 prothrombin time (patient) 53.0 s Vishal Hernandez RN coagulation managed by Vishal Hernandez RN international normalized ratio (INR) 2.6 Vishal Hernandez RN Normal prothrombin time (patient) 29.3 s Vishal Hernandez RN international normalized ratio (INR) 1.1 Lida Linares RN Normal coagulation managed by Vishal Hernandez RN international normalized ratio (INR) 5.3 Vishal Hernandez RN Normal prothrombin time (patient) 61.3 s Vishal Hernandez RN coagulation managed by Vishal Hernandez RN international normalized ratio (INR) 1.3 Vishal Hernandez RN Normal prothrombin time (patient) 14.1 s Vishal Fitzgeralds RN coagulation managed by Vishal Fitzgeralds RN Vishal Fitzgeralds RN international normalized ratio (INR) 2.1 Brendan Preciado Normal prothrombin time (patient) 25.4 s Brendan Preciado 05/04 coagulation managed by Vishal Fitzgeralds RN Vishal Fitzgeralds RN 05/04 international normalized ratio (INR) 1.3 Vishal Fitzgeralds RN Normal 05/04 prothrombin time (patient) 14.1 s Vishal Fitzgeralds RN 04/22 coagulation managed by Vishal Fitzgeralds RN Vishal Hernandez RN 04/22 international normalized ratio (INR) 4.0 Vishal Fitzgeralds RN Normal 04/22 prothrombin time (patient) 46.1 s Vishal Fitzgeralds RN 04/18 coagulation managed by Vishal Fitzgeralds RN Vishal Hernandez RN 04/18 international normalized ratio (INR) 2.8 Vishal Fitzgeralds RN Normal 04/18 prothrombin time (patient) 31.7 s Vishal Fitzgeralds RN 04/13 coagulation managed by Vishal Fitzgeralds RN Vishal Hernandez RN 04/13 international normalized ratio (INR) 3.2 Vishal Fitzgeralds RN Normal 04/13 prothrombin time (patient) 36.4 s Vishal Fitzgeralds RN 04/08 coagulation managed by Vishal Fitzgeralds RN Vishal Hernandez RN 04/08 international normalized ratio (INR) 7.0 Vishal Fitzgeralds RN Normal 04/08 prothrombin time (patient) 81.4 s Vishal Fitzgeralds RN 04/01 coagulation managed by Vishal Fitzgeralds RN Vishal Hernandez RN 04/01 international normalized ratio (INR) 3.4 Vishal Fitzgeralds RN Normal 04/01 prothrombin time (patient) 40.4 s Vishal Fitzgeralds RN 03/24 free thyroxine index 9.9 ??g/dL [facility] 4.4 - 11.4 03/24 triiodothyronine uptake 0.9 TBI [facility] 0.8 - 1.3 03/24 thyroxine, serum, total 8.9 ??G/DL [facility] 4.5 - 11.7 03/24 prothrombin time (patient) 10.8 s [facility] 9.0 - 11.5 03/24 international normalized ratio (INR) 1.1 [facility] 0.9 - 1.1 09/09 international normalized ratio (INR) 2.1 Rigo Koehler Normal 09/09 prothrombin time (patient) 23.4 s Rigo Koehler 08/28 international normalized ratio (INR) 1.9 Kimmie Rehman Normal 08/28 prothrombin time (patient) 22.7 s Kimmie Rehman 08/25 coagulation managed [place] Lotus Garcia [place] 08/25 international normalized ratio (INR) 2.6 Lotus Garcia RN Normal 08/25 prothrombin time (patient) 29.4 s Lotus Garcia RN 08/17 international normalized ratio (INR) 3.2 Lida Linares RN Normal 08/17 prothrombin time (patient) 36.3 s Lida Linares RN 08/14 international normalized ratio (INR) 1.23 Lida Linares RN Low 08/14 prothrombin time (patient) 15.9 s Lida Linares RN 08/14 coagulation managed by Lida Linares RN 01/18 platelet count 287 10*3/mm3 [facility] 01/18 hematocrit, blood 42.4 % [facility] 01/18 international normalized ratio (INR) 2.0 [facility]h 01/18 creatinine, serum 1.03 mg/dL [facility] 01/18 potassium, serum 3.8 mmol/L [facility] 01/18 sodium, serum 141 mmol/L [facility] 09/10 LDL/HDL (low-density lipoprotein/high-d ensity lipoprotein) ratio 1.4 RATIO [facility] 0.2-4.3 Normal 09/10 VLDL cholesterol 66 mg/dL [facility] 8-41 High 09/10 lipoprotein, beta, serum, point, quantitative, calculated 67 mg/dL [facility] 0-130 Normal 09/10 cholesterol/HDL ratio, serum, percent 3.8 ratio [facility] 1.5-5.6 Normal 09/10 HDL cholesterol, serum 48 mg/dL [facility] 55 Low 09/10 triglyceride, serum, fasting 332 mg/dL [facility] Normal 09/10 [facility], [facility] 09/11 platelet count 276 10*3/mm3 [facility] 09/11 hematocrit, blood 48.4 % [facility] 09/11 triglyceride, serum, fasting 62 mg/dL [facility] 09/11 HDL cholesterol, serum 36 mg/dL [facility] 09/11 lipoprotein, beta, serum, point, quantitative, calculated 117 mg/dL [facility] 09/11 cholesterol, serum 165 mg/dL [facility] 09/11 international normalized ratio (INR) 4.4 [facility] 09/11 thyroid stimulating hormone, serum 0.216 u[IU]/mL [facility] 09/11 D-dimer quantitative mcg/mL 1.51 ug/mL [facility] 09/11 B-type natriuretic peptide 500 pg/mL [facility] 09/11 alanine aminotransferase (SGPT), serum 49 1/L [facility] 09/11 aspartate aminotransferase (SGOT), serum 24 1/L [facility] 09/11 creatinine, serum 0.90 mg/dL [facility] 09/11 potassium, serum 3.8 mmol/L [facility] 09/11 sodium, serum 136 mmol/L [facility] HISTORY OF MEDICATION USE Medication Status Instructions Dates Provider Indications Com ments Crestor 10 mg tablet active Take 1 tablet by mouth once a day Mercedes Black Crestor 10 mg tablet completed - Mercedes Black diltiazem HCl 90 mg tablet active Take 1 tablet by mouth twice a day Alexandro Triplett magnesium oxide 400 mg magnesium tablet active Take 1 tablet by mouth once a day Mercedes Black dofetilide 250 mcg capsule active Take 1 capsule by mouth twice a day TAKE FIRST DOSE MORNING OF 08/10/24 Alexandro Triplett amiodarone 200 mg tablet completed TAKE 1 TABLET BY MOUTH TWICE DAILY - Alexandro Triplett Farxiga 10 mg tablet completed Take 1 tablet by mouth once a day - Alexandro Triplett atorvastatin 40 mg tablet completed Take 1 tablet by mouth once a day - Alexandro Triplett Eliquis 2.5 mg tablet active TAKE 1 TABLET BY MOUTH TWICE DAILY Tegan Ford Entresto 24-26 mg tablet completed TAKE 1/2 TABLET BY MOUTH TWICE DAILY - Torrey Maldonado pantoprazole 40 mg tablet,delayed release (/EC) active Juwan Zavala MD amiodarone 200 mg tablet completed TAKE 1/2 TABLET BY MOUTH EVERY DAY - Karis Roberts NP Lipitor 40 mg tablet completed TAKE 1 TABLET BY MOUTH EVERY NIGHT AT BEDTIME - Adina Albert RN amoxicillin 500 mg tablet completed 2000 mg by mouth single dose - Karis Roberts NP Flonase Allergy Relief 50 mcg/actuation spray,suspension completed ADMINISTER 2 SPRAYS IN EACH NOSTRIL EVERY DAY - Alexandro Triplett Eliquis 2.5 mg tablet completed Take 1 tablet by mouth twice a day - Tegantaiwo Ford Entresto 24-26 mg tablet completed Take 1 tablet by mouth twice a day - Katlyn Hurst carvedilol 6.25 mg tablet completed Take 1 tablet by mouth twice a day - Alexandro Millardt Eliquis 2.5 mg tablet completed Take 1 tablet by mouth twice a day FOR ATRIAL FIBRILLATION - Mercedes Black ramipril 5 mg capsule completed TAKE 1 CAPSULE (=5MG) BY MOUTH EVERY DAY FOR HIGH BLOOD PRESSURE - Tia Acevedo RN Eliquis 2.5 mg tablet completed TAKE 1 TABLET (=2.5MG) BY MOUTH TWICE A DAY FOR ATRIAL FIBRILLATION - Mercedes Black Entresto 24-26 mg tablet completed Take 1 tablet by mouth twice a day Take one tablet by mouth 2 times a day - Mercedes Black amiodarone 200 mg tablet completed Take 1/2 tablet by mouth once a day - Dania Cuevasenz Eliquis 2.5 mg tablet completed Take 1 tablet by mouth twice a day TAKE 1 TABLET BY MOUTH TWICE A DAY - Padmini Evangelista carvedilol 3.125 mg tablet completed Take 1 tablet by mouth twice a day TAKE 1 TABLET BY MOUTH TWICE A DAY - Mercedes Black ramipril 5 mg capsule completed Take 1 capsule by mouth once a day TAKE 1 CAPSULE BY MOUTH TWICE DAILY. MONITOR BLOOD PRESSURE BEFORE TAKING. HOLD IF BELOW 80. - Tia Acevedo RN Eliquis 2.5 mg tablet completed TAKE 1 TABLET BY MOUTH TWICE A DAY - Tia Acevedo RN carvedilol 3.125 mg tablet completed TAKE 1 TABLET BY MOUTH TWICE A DAY - Tia Acevedo RN amiodarone 100 mg tablet completed Take 1 tablet by mouth once a day - Tia Acevedo RN gabapentin 300 mg capsule completed Take 2 capsule by mouth every evening Take 1 capsule by mouth at bedtime - Brea MORRISP gabapentin 300 mg capsule completed Take 1 capsule by mouth every morning - Juwan Zavala MD spironolactone 25 mg tablet completed Take 1 tablet by mouth once a day - Juwan Zavala MD Entresto 24-26 mg tablet completed 1 tablet by mouth twice a day - Juwan Zavala MD warfarin 2 mg tablet completed TAKE 1 TABLET BY MOUTH EVERY EVENING EXPECT ON ELIZABETH AND SATURDAY TAKE 1/2 TAB - Juwan Zavala MD magnesium oxide 400 mg (241.3 mg magnesium) tablet completed Take 1 tablet by mouth twice a day - Juwan Zavala MD Lopressor 50 mg tablet completed Take 1/2 tablet by mouth twice a day take 25mg twice daily - Juwan Zavala MD warfarin 2 mg tablet completed Take 1 tablet by mouth every evening as directed - Vishal Hernandez RN midodrine 5 mg tablet completed Take 1 tablet by mouth three times a day stop losartan. - Gerard Doty warfarin 2 mg tablet completed Take 1 tablet by mouth every evening as directed EXCEPT ON MON, WED,FRI, SAT TAKE 1 1/2 TAB - Vishal Hernandez RN furosemide 40 mg tablet completed Take 1 tablet by mouth every other day - Alexandro Triplett warfarin 2 mg tablet completed Take 1 tablet by mouth once a day as directed EXCEPT ON Mon take 1/2 tab - Vishal Hernandez RN warfarin 2 mg tablet completed Take 1 1/2 tablet by mouth once a day as directed - Vishal Hernandez RN warfarin 2 mg tablet completed 1 tablet by mouth once a day - Vishal Hernandez RN warfarin 2 mg tablet completed Take 1 1/2 tablet by mouth once a day as directed - Vishal Hernandez RN warfarin 2 mg tablet completed Take 1 tablet by mouth once a day as directed EXCEPT on Tues and Th take 1/2 tab - Vishal Hernandez RN COUMADIN 2 MG ORAL TABLET completed one tab daily EXCEPT on Tues and Thurs take 1 1/2 tab - Vishal Hernandez RN COUMADIN 5 MG ORAL TABLET completed 1/2 tab daily - Vishal Hernandez RN warfarin 2 mg tablet completed TAKE 1 TAB (2MG) ONCE DAILY, - Vishal Hernandez RN losartan 25 mg tablet completed Take 1 tablet by mouth once a day - Dania Saha REQUIP 0.5 MG ORAL TABLET completed at bedtime - Mercedes Black [facility] completed as directed - Mercedes Black NORCO 10-325 MG ORAL TABLET completed take one pill 3 times a day as needed - Mercedes Black COUMADIN 2 MG ORAL TABLET completed HOLD - Ruby Ramirez RN AMIODARONE 200MG completed one half tab mon, wed, fri - Dania Saha ALPRAZOLAM 0.5 MG ORAL TABLET completed take one pill twice a day - Mercedes Black SOTALOL HCL 80 MG ORAL TABLET completed ONE TAB. TWICE DAILY - Brendan fowler amiodarone VIAGRA 100 MG ORAL TABLET completed 1 tab by mouth 1 hour prior to sexual activity - Suni Araiza furosemide 40 mg tablet completed Take 1 by mouth every other day - Mercedes Black MAGNESIUM 400 MG CAPS completed 1 tab twice daily - Mercedes Black PANTOPRAZOLE SODIUM 40 MG ORAL TABLET DELAYED RELEASE completed 1 tab daily - Mercedes Black VICODIN 5-500 MG TABS completed each 6 hours PRN moderate pain - Lida Linares RN CARDIOMYOPAT HY- ISCHEMIC-EF 5-10%, S/P [email or web address] AICD and ep study AMIODARONE HCL 200 MG ORAL TABLET completed ONE TAB. DAILY - Jose Ma MD TRAMADOL HCL 50 MG ORAL TABLET completed one tablet each 6 hours PRN pain - Sunianthony Araiza XANAX 0.25 MG ORAL TABLET completed ONE TAB. THREE TIMES DAILY PRN - Suni Araiza NORCO 7.5-325 MG ORAL TABLET completed one tablet each 6 hours PRN pain - Suni Araiza PLAVIX 75 MG ORAL TABLET completed ONE TAB. DAILY - Mercedes Black SPIRONOLACTONE 25 MG ORAL TABLET completed ONE TAB. DAILY - Brendan Preciado FUROSEMIDE 40 MG ORAL TABLET completed one tablet daily - Aurea Katlyn COREG 12.5 MG ORAL TABLET completed ONE TAB. TWICE DAILY - Suni Araiza LOSARTAN POTASSIUM 25 MG ORAL TABLET completed TAKE 1/2 TABLET bid - Mercedes Black ATORVASTATIN CALCIUM 40 MG ORAL TABLET completed TAKE ONE TABLET AT BEDTIME - Mercedes Black COUMADIN 5 MG ORAL TABLET completed 1/2 tab starting 04/14 - Vishal Hernandez RN ASPIRIN 81 MG ORAL TABLET completed ONE TAB. DAILY - Suni Araiza IPRATROPIUM BROMIDE SOLUTION completed 2 puffs - Vishal Hernandez RN ZOLPIDEM TARTRATE 5 MG ORAL TABLET completed - Vishal Hernandez RN SOCIAL HISTORY Date Observation Value Provider personal history of marijuana use no Alex Hackett [facility] drug use no Alex [facility] alcohol use, average drinks per day social Alex Hackett [facility] alcohol use yes Alex [facility] passive cigarette sm ana exposure no Alex Hackett [facility] smoking, year quit 2018 Alex franz [facility] smoking history, tot al pack/year 20 Alex Hackett [facility] cigarette use yes Alex Avendano [employer]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 Alex Hackett DNP,DELIV[employer] SALES WORKER number of grandchildren Jose Ma MD personal history of marijuana use no Alexandro Millardt drug use no Alexandro Millardt alcohol use, average drinks per day social Alexandro Millardt alcohol use yes Alexandro Millardt passive cigarette sm ana exposure no Alexandro Nacht smoking, year quit 2018 Alexandro Jordan ht smoking history, tot al pack/year 20 Alexandro Millardt cigarette use yes Alexandro Millardt smoking status Former smoker Alexandro Freemant personal history of marijuana use no Verah Bonareri [employer] cigarette use yes Verah Bonareri [employer] drug use no Verah Bonareri [employer] alcohol use, average drinks per day social Verah Bonareri [employer] alcohol use yes Verah Bonareri [employer] passive cigarette sm ana exposure no Verah Bonareri [employer] smoking status Former smoker Karis Bonare ri [employer] drug use no Juwan danielle MD alcohol use, average drinks per day social Juwan Zavala MD alcohol use yes Juwan danielle MD passive cigarette sm ana exposure no Juwan Zavala MD smoking status Never smoker Juwan meredith MD drug use no Juwan danielle MD alcohol use, average drinks per day social Juwan Zavala MD alcohol use yes Juwan danielle MD passive cigarette sm ana exposure no Juwan Zavala MD smoking status Never smoker Juwan meredith MD drug use no Brea Ventimig corinna [facility] alcohol use, average drinks per day social Brea Lovegllizy [facility] alcohol use yes Brea weinstein [facility] smoking status Never smoker Brea wilburn [facility] social history E&M Lives with family/friends Perez hou is a current smoker. S mokes 4 cigarettes per day. F ormerly quit in 2013. Smoking History: Perez hou has never smoked. Juwan Zavala MD social history reviewed E&M revi ewed - no changes required Juwan Zavala MD smoking status Never smoker Edita Elizalde drug use none Juwan danielle MD alcohol use no Juwan danielle MD social history reviewed E&M revi ewed - no changes required Juwan Zavala MD social history E&M Lives with family/friends Perez hou is a current smoker. S mokes 4 cigarettes per day. F ormerly quit in 2013. Smoking History: Perez hou is a former smoker. Juwan Zavala MD caffeine use, averag e drinks per day yes Mercedes Black passive cigarette sm ana exposure no Mercedes Black smoking, year quit 2019 Mercedes lawson smoking history, tot al pack/year 20 Mercedes Black cigarette use yes Mercedes manley smoking status Former smoker Mercedes Jocelyne ríos social history E&M Lives with family/friends Perez hou is a current smoker. S mokes 4 cigarettes per day. F ormerly quit in 2013. Smoking History: Perez hou is a former smoker. Torrey Maldonado social history reviewed E&M revi ewed - no changes required Torrey Maldonado caffeine use, averag e drinks per day yes Mercedes Black passive cigarette sm ana exposure no Mercedes Black smoking, year quit 2018 Mercedes lawson smoking history, tot al pack/year 20 Mercedes Black cigarette use yes Mercedes manley smoking status Former smoker Mercedes ríos social history E&M Lives with family/friends Perez hou is a current smoker. S mokes 4 cigarettes per day. F ormerly quit in 2013. Smoking History: Perez hou is a former smoker. Juwan Zavala MD social history reviewed E&M revi ewed - no changes required Juwan Zavala MD caffeine use, averag e drinks per day yes Mercedes Black passive cigarette sm ana exposure no Mercedes Black smoking, year quit 2018 Mercedes lawson smoking history, tot al pack/year 20 Mercedes Black cigarette use yes Mercedes manley smoking status Former smoker Mercedes ríos social history reviewed E&M revi ewed - no changes required Juwan Zavala MD social history reviewed E&M revi ewed - no changes required Juwan Zavala MD social history reviewed E&M revi ewed - no changes required Gerard Doty social history reviewed E&M revi ewed - no changes required Juwan Zavala MD social history E&M Lives with family/friends Perez hou is a current smoker. S mokes 4 cigarettes per day. F ormerly quit in 2013. Smoking History: Perez hou is a former smoker. Juwan Zavala MD caffeine use, averag e drinks per day yes Mercedes Husainnicole passive cigarette sm ana exposure no Mercedes Black smoking, year quit 2018 Mercedes lawson smoking history, tot al pack/year 20 Mercedes Black cigarette use yes Mercedes manley smoking status Former smoker Mercedes ríos social history reviewed E&M revi ewed - no changes required Juwan Zavala MD social history E&M Lives with family/friends Perez hou is a current smoker. S mokes 4 cigarettes per day. F ormerly quit in 2013. Smoking History: Perez hou is a former smoker. Juwan Zavala MD social history reviewed E&M revi ewed - no changes required Juwan Zavala MD caffeine use, averag e drinks per day yes Mercedes Black passive cigarette sm ana exposure no Mercedes Balck smoking, year quit 2018 Mercedes lawson smoking history, tot al pack/year 20 Mercedes Black cigarette use yes Mercedes manley smoking status Former smoker Mercedes ríos caffeine use, averag e drinks per day yes Zulema Connors passive cigarette sm ana exposure no Zulema Connors smoking, year quit 2018 Zulema stevenson smoking history, tot al pack/year 20 Zulema Connors cigarette use yes Zulema lawton smoking status Former smoker Zulema griggs caffeine use, averag e drinks per day yes Brendan Preciado passive cigarette sm ana exposure no Brendan Preciado smoking, year quit 2019 Brendan Preciado smoking history, tot al pack/year 20 Brendan Preciado cigarette use yes Brendan mccray smoking status Former smoker Brendan Vences social history E&M Lives with family/friends P atgillian is a current smoker. S mokes 4 cigarettes per day. F ormerly quit in 2013. Smoking History: P atgillian currently smokes every day. P atgillian has been counseled to quit. Juwan Zavala MD social history reviewed E&M revi ewed - no changes required Juwan Zavala MD caffeine use, averag e drinks per day yes [facility] passive cigarette sm ana exposure no [facility] smoking/tobacco cess ation, patient education and counseling yes [facility] smoking, year quit 2013 [facility] smoking history, tot al pack/year 20 [facility] cigarette use yes [facility] smoking status Current every day smoker C ancelmochristinamelanie [facility] social history E&M Lives with family/friends P maria t is a current smoker. S mokes 4 cigarettes per day. F ormerly quit in 2013. Smoking History: P maria t currently smokes every day. P atgillian has been counseled to quit. Rachel Valle MD social history reviewed E&M revi ewed - no changes required Rachel Valle MD caffeine use, averag e drinks per day yes [facility] passive cigarette sm ana exposure no [facility] smoking/tobacco cess ation, patient education and counseling yes [facility] smoking, year quit 2013 [facility] [facility] smoking history, tot al pack/year 20 [facility] cigarette use yes [facility] smoking status Current every day smoker T [facility] social history E&M Lives with family/friends P maria t is a current smoker. S mokes 4 cigarettes per day. F ormerly quit in 2013. Smoking History: P atgillian currently smokes every day. P atient has been counseled to quit. Juwan Zavala MD social history reviewed E&M revi ewed - no changes required Juwan Zavala MD alcohol use, average drinks per day social Zulema Connors alcohol use no Zulema Griffithrich loving caffeine use, averag e drinks per day yes Zulema Waylon drug use none Zulema Prachi loving smoking/tobacco cess ation, patient education and counseling yes Zulema Waylon passive cigarette sm ana exposure no Zulema Waylon smoking, year quit 2013 Zulemashashi stevenson smoking history, tot al pack/ Zulema Waylon cigarette use yes Zulema lawton smoking status Current every day smoker Jaret michaelregina Waylon social history reviewed E&M revi ewed - no changes required Juwan Zavala MD social history E&M Lives with family/friends Perez hou is a current smoker. S mokes 4 cigarettes per day. F ormerly quit in 2013. Smoking History: Perez hou currently smokes every day. Perez hou has been counseled to quit. Juwan Zavala MD alcohol use, average drinks per day social Harper Fred alcohol use no Harper Fred caffeine use, averag e drinks per day yes Harper Fred drug use none Harper Fred smoking/tobacco cess ation, patient education and counseling yes Harper Fred passive cigarette sm ana exposure no Harper Fred smoking, year quit 2013 Harper Anna s smoking history, tot al pack/ Harper Fred cigarette use yes Harper Fred smoking status Current every day smoker D acia Fred smoking/tobacco cess ation, patient education and counseling yes Juwan Zavala MD social history reviewed E&M revi ewed - no changes required Juwan Zavala MD social history E&M Lives with family/friends Perez hou is a current smoker. S mokes 4 cigarettes per day. F ormerly quit in 2013. Smoking History: Perez hou currently smokes every day. Perez hou has been counseled to quit. Manolo Plurad alcohol use, average drinks per day social Brendan Preciado alcohol use no Brendan chew caffeine use, averag e drinks per day yes Brendan Preciado drug use none Brendan chew passive cigarette sm ana exposure no Brendan Preciado smoking, year quit 2013 Brendan Neumannenson smoking history, tot al pack/year 20 Brendan Preciado cigarette use yes Brendan lópezmisty smoking status Current every day smoker S allison Zavala MD number of grandchildren Juwan Zavala MD social history reviewed E&M revi ewed - no changes required Juwan Zavala MD social history E&M Lives with family/friends Perez hou is a former smoker. Smoking History: Perez hou is a former smoker. Juwan Zavala MD alcohol use, average drinks per day social Mercedes Black alcohol use no Mercedes corona caffeine use, averag e drinks per day yes Mercedes Black drug use none Mercedes mendezer passive cigarette sm ana exposure no Mercedes Black smoking, year quit 2013 Mercedes lawson smoking history, tot al pack/year 20 Mercedes Black cigarette use yes Mercedes manley smoking status Former smoker Mercedes ríos social history reviewed E&M revi ewed - no changes required Juwan Zavala MD alcohol use, average drinks per day social Mercedes Krishnamurthyvineet alcohol use no Mercedes Rubio vanessaer caffeine use, averag e drinks per day yes Mercedes Truongpeggyximena drug use none Mercedes Rubio vanessaer passive cigarette sm ana exposure no Mercedes Black smoking, year quit 2013 Mercedes Roberson lulu smoking history, tot al pack/year 20 Mercedes Krishnamurthymakenzienicole cigarette use yes Mercedes manley smoking status Former smoker Mercedes shivineet social history E&M Lives with family/friends Perez hou is a former smoker. Smoking History: Perez hou is a former smoker. Juwan Zavala MD social history reviewed E&M revi ewed - no changes required Juwan Zavala MD alcohol use no Mercedes Truongpeggyramon er smoking status Former smoker Juwan dykes MD alcohol use, average drinks per day social Brendan Preciado alcohol use yes Brendan chew caffeine use, averag e drinks per day yes Brendan Preciado drug use none Brendan chew passive cigarette sm ana exposure no Brendan Preciado smoking, year quit 2013 Brendan Preciado smoking history, tot al pack/year 20 Brendan Preciado cigarette use yes Brendan mccray smoking status Former smoker Brendan Vences social history reviewed E&M revi ewed - no changes required Juwan Zavala MD alcohol use, average drinks per day social Brendan Preciado caffeine use, averag e drinks per day yes Brendan Preciado drug use none Brendan chew passive cigarette sm ana exposure no Brendan Preciado smoking/tobacco cess ation, patient education and counseling yes Brendan Preciado smoking, year quit 2013 Brendan Preciado smoking history, tot al pack/year 20 Brendan Preciado cigarette use yes Brendan mccray smoking status Former smoker Brendan Vences social history reviewed E&M revi ewed - no changes required Juwan Zavala MD alcohol use, average drinks per day social Brendan Preciado caffeine use, averag e drinks per day yes Brendan Preciado drug use none Brendan chew passive cigarette sm ana exposure no Brendan Preciado smoking/tobacco cess ation, patient education and counseling yes Brendan Preciado smoking, year quit 2013 Brendan Preciado smoking history, tot al pack/year 20 Brendan Preciado cigarette use yes Brendan mccray smoking status Former smoker Brendan Vences smoking status Former smoker Brea Oneal chris 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 reviewed E&M revi ewed - no changes required Jose Ma MD smoking status Former smoker Suni Yandy doyle social history reviewed E&M revi ewed - no changes required Jose Ma MD social history reviewed E&M revi ewed - no changes required Jose Ma MD smoking, year quit 2013 Kimmie reynaga cigarette use yes Kimmie Rehman smoking status Former smoker Kimmie Rehman social history reviewed E&M revi ewed - no changes required Jose Ma MD social history reviewed E&M revi ewed - no changes required Jose aM MD alcohol use, average drinks per day social Aurea Potts caffeine use, averag e drinks per day yes Aurea [facility] drug use none Aurea [facility] passive cigarette sm ana exposure no Aurea Potts smoking/tobacco cess ation, patient education and counseling yes Aurea Potts smoking, year quit 2012 Aurea Fitzpatrick cCarodriguez smoking history, tot al pack/year 20 Aurea Potts cigarette use yes Aurea Potts smoking status Former smoker Jose stoner MD cigarette use yes Aurea [facility] alcohol use, average drinks per day social Aurea [facility] caffeine use, averag e drinks per day yes Aurea [facility] drug use none Aurea [facility] passive cigarette sm ana exposure no Aurea [facility] smoking/tobacco cess ation, patient education and counseling yes Aurea [facility] smoking status Current every day smoker Amari abad [facility] social history E&M L court with family/friends Jose Ma MD drug use none Jose dick MD smoking/tobacco cess ation, patient education and counseling yes Jose Ma MD social history reviewed E&M reviewed Vishal Hernandez RN social history reviewed E&M reviewed Juwan Zavala MD drug use no Vishal Hernandez RN passive cigarette sm ana exposure no Vishal Hernandez RN smoking history, tot al pack/year 20 Vishal Hernandez RN smoking, year quit 2012 Vishal doyle RN caffeine use, averag e drinks per day yes Vishal Hernandez RN alcohol use, average drinks per day social Vishal Hernandez RN smoking status former smoker Vishal Klein social history reviewed E&M reviewed Vishal Hernandez RN FUNCTIONAL STATUS Date Observation Value Provider HRA, CV Assess/Plan, Angina (inactive) Management Plan continue current therapy Alex Philiposei DNP,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 SALES WORKER HRA, CV Assess/Plan, Angina (inactive) Management Plan continue current therapy Alexandro Triplett HRA, CV Assess/Plan, Angina (inactive) Management Plan continue current therapy Karis Roberts NP HRA, CV Assess/Plan, Angina (inactive) Management Plan continue current therapy Juwan Zavala MD HRA, CV Assess/Plan, Angina (inactive) Management Plan continue current therapy Brea Ventichris DELIVERY SALES WORKER HRA, CV Assess/Plan, Angina (inactive) Management Plan continue current therapy Juwan Zavala MD HRA, CV Assess/Plan, Angina (inactive) Management Plan continue current therapy Juwan Zavala MD HRA, CV Assess/Plan, Angina (inactive) Management Plan continue current therapy Juwan Zavala MD HRA, CV Assess/Plan, Angina (inactive) Management Plan continue current therapy Juwan Zavala MD HRA, CV Assess/Plan, Angina (inactive) Management Plan continue current therapy Torrey Maldonado HRA, CV Assess/Plan, Angina (inactive) Management Plan continue current therapy Juwan Zavala MD HRA, CV Assess/Plan, Angina (inactive) Management Plan continue current therapy Juwan Zavala MD HRA, CV Assess/Plan, Angina (inactive) Management Plan continue current therapy Gerard Doty HRA, CV Assess/Plan, Angina (inactive) Management Plan continue current therapy Juwan Zavala MD HRA, CV Assess/Plan, Angina (inactive) Management Plan continue current therapy Juwan Zavala MD HRA, CV Assess/Plan, Angina (inactive) Management Plan continue current therapy Juwan Zavala MD HRA, CV Assess/Plan, Angina (inactive) Management Plan continue current therapy Juwan Zavala MD HRA, CV Assess/Plan, Angina (inactive) Management Plan continue current therapy Juwan Zavala MD HRA, CV Assess/Plan, Angina (inactive) Management Plan continue current therapy Juwan Zavala MD HRA, CV Assess/Plan, Angina (inactive) Management Plan continue current therapy Juwan Zavala MD HRA, CV Assess/Plan, Angina (inactive) Management Plan continue current therapy Juwan Zavala MD MENTAL STATUS Date Observation Value Provider assessment of judgme nt and insight E&M Alert and oriented to time, place and person. Mood and affect are normal. Vishal Hernandez RN assessment of judgme nt and insight E&M Alert and oriented to time, place and person. Mood and affect are normal. Juwan Zavala MD assessment of judgme nt and insight E&M Alert and oriented to time, place and person. Mood and affect are normal. Vishal Hernandez RN FAMILY HISTORY Family Member Condition Son Family History of Co ronary Artery Disease: Mother Family History of Co ronary Artery Disease: Father Family History of Bauman dden Cardiac : INSURANCE PROVIDERS Payer name Policy type / Coverage type [place] [employer] party ID [employer] MEDICARE ADVANTAGE ST 0 003 (HMO POS) Medicare [id number] ADVANCE DIRECTIVES Name Date DISCUSSED - NO DECISION MADE TREATMENT PLAN Date Name Performer [id number],C,B P 107/66 A verage per home RPM 121/69 (controlled) His updated medication list for this problem includes: Carvedilol 3.125 Mg Tablet (Carvedilol) ..... Take 1 tablet by mouth twice a day Furosemide 40 Mg Tablet (Furosemide) ..... Take 1 tablet by mouth every other day Brea Ventimiglia [facility] [id number],C,f ollow up CT was ordered as patient on amiodarone w as not done will re-order Brea Ventimiglia [facility] [id number],C,E F of 20% on last echo with combined systolic and diastolic dysfunction R emains on GDMT I CD in place Brea Ventimiglia [facility] [id number],C,n one noted on last device check r emains on amiodarone and BB o n eliquis for AC Brea Loveglia [facility] [id number],C,will do f/u e cho Breaneri Onealmiglia [facility] [id number],C,H as been chronic ongoing dizziness N o orthostatic changes on exam today D evice check shows normal function with no arrythmia B P at goal at home c oncern for otitis media have asked him to see PCP Brea Lovegllizy [facility] [id number],C,a symptomatic w ill do f/u echo Breaneri Onealmiglia [facility] [id number],C, E CHO 05/22/22 CONCLUSIONS: 1 . Technically difficult study, limited views secondary to poor acoustic windows. Interpretation is based on available limited v iews. Severe global left ventricular systolic hypokinesis. Normal left ventricular wall thickness. Mild enlargement of left v entricular chamber. Mitral inflow Doppler demonstrates pseudonormal pattern consistent with diastolic dysfunction. E/E': 1 3.2 Left ventricular ejection fraction is measured at 20 %. 2 . Normal right ventricular size. Normal right ventricular systolic function. Linear artifact seen in the right ventricle is s uggestive of a catheter, pacer lead, or ICD lead. 3 . Normal appearing mitral valve leaflets. Mild to moderate mitral valve regurgitation. Juwan Zavala MD [id number],S, Juwan Zavala MD [id number],S, C onclusions: Although there is airway obstruction and a diffusion defect suggesting emphysema, the absence of overinflation is inconsistent w ith that diagnosis. Although bronchodilators were not tested, a clinical trial may be helpful to assess the presence of a reversible c omponent. P ulmonary Function Diagnosis: M inimal Obstructive Airways Disease S evere Diffusion Defect N o significant changes in FEV1 and DLCO when compared to previous study. 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 June 15, 2022 C reatine was (2.39) contine with DUNCAN with LV dysfunction. Reduce Amiodarone to 100mg once daily October 10, 2022 c heck amio labs February 15, 2023 l abs reviewed cr was 1.9 Juwan Zavala MD [id number],C, S R and atrial paced Juwan Zavala MD [id number],S, 1 new episode on 12/29/21 in VF zone t erminated with ATP. 10 NSVT episodes. A ppear to be af with RVR. HF trending s hows no elevation. Battery ok. October 10, 2022 Battery Longevity: 2 years and 6 months remaining P resenting EGM: Ap Vs 75bpm. Battery s tatus normal. Lead trends appear s table. HF trends normal. AT/AF burden 9 .7 days, NSVT episode on 08-13-22 for 1 -2seconds duration. Appropriate device f unction. Patient is on OAC. - Perez Fall on 09-17-2022 6:40 AM Juwan Zavala MD [id number],C, C ONCLUSIONS: 1 . Abnormal septal motion consistent with pacemaker or ICD implant . Severe global left ventricular systolic hypokinesis. N ormal left ventricular size. Normal left ventricular wall thickness. E to A ratio is consistent with restrictive physiology. A bnormal E/E`, suggestive of elevated LVEDP. 24.4 Left ventricular ejection fraction is measured at 15 %. 2 . Normal right ventricular size. Mild right ventricular hypokinesis. Linear artifact seen in the right ventricle is suggestive of a c atheter, pacer lead, or ICD lead. 3 . There is non-specific thickening of the mitral valve leaflets. Mild to moderate mitral valve regurgitation. 4 . There is trace physiologic tricuspid valve regurgitation. Juwan Zavala MD [id number],C, N o new angina Juwan Zavala MD [id number],C,on eliquis Sa josef Zavala MD [id number],C, H e was supposed to be on Entresto, but is now on Ramipril from [place]. June 15, 2022 C reatine was (2.39) contine with DUNCAN with LV dysfunction. Reduce Amiodarone to 100mg once daily October 10, 2022 c heck amio labs Juwan Zavala MD [id number],C,E CHO 05/22/22 CONCLUSIONS: 1 . Technically difficult study, limited views secondary to poor acoustic windows. Interpretation is based on available limited v iews. Severe global left ventricular systolic hypokinesis. Normal left ventricular wall thickness. Mild enlargement of left v entricular chamber. Mitral inflow Doppler demonstrates pseudonormal pattern consistent with diastolic dysfunction. E/E': 1 3.2 Left ventricular ejection fraction is measured at 20 %. 2 . Normal right ventricular size. Normal right ventricular systolic function. Linear artifact seen in the right ventricle is s uggestive of a catheter, pacer lead, or ICD lead. 3 . Normal appearing mitral valve leaflets. Mild to moderate mitral valve regurgitation. Juwan Zavala MD [id number],C, H e was supposed to be on Entresto, but is now on Ramipril from [place]. June 15, 2022 C reatine was (2.39) contine with DUNCAN with LV dysfunction. Reduce Amiodarone to 100mg once daily Juwan Zavala MD [id number],C, N o recent Vtach, need to reduce amio, will likely stop in the next couple of weeks. Will reduce to 100mg mon, wed, frid and plan on stopping assuming that he is no longer having episodes of VT. Check PFTs. EKG is SR and atrial pacing Juwan Zavala MD [id number],W, C ONCLUSIONS: 1 . Abnormal septal motion consistent with pacemaker or ICD implant . Severe global left ventricular systolic hypokinesis. N ormal left ventricular size. Normal left ventricular wall thickness. E to A ratio is consistent with restrictive physiology. A bnormal E/E`, suggestive of elevated LVEDP. 24.4 Left ventricular ejection fraction is measured at 15 %. 2 . Normal right ventricular size. Mild right ventricular hypokinesis. Linear artifact seen in the right ventricle is suggestive of a c atheter, pacer lead, or ICD lead. 3 . There is non-specific thickening of the mitral valve leaflets. Mild to moderate mitral valve regurgitation. 4 . There is trace physiologic tricuspid valve regurgitation. Juwan Zavala MD [id number],C, M ay have vertigo wants to see ENT. Stopped his losartan . hx of CHF. H as to stay on diuretic creatinine was 1.5 recently June 15, 2022 C reatine 2.39 on May 16 labs Juwan Zavala MD [id number],S,H e was supposed to be on Entresto, but is now on Ramipril from [place]. Juwan Zavala MD [id number],S,S ee what's going on with the renal function. Check labs. Juwan Zavala MD [id number],C, S table INRs,. no bleeding May 16, 2022 A pparently was changed to Eliquis 2.5 BID. Unclear to me when. Juwan Zavala MD [id number],C, C ONCLUSIONS: 1 . Abnormal septal motion consistent with pacemaker or ICD implant . Severe global left ventricular systolic hypokinesis. N ormal left ventricular size. Normal left ventricular wall thickness. E to A ratio is consistent with restrictive physiology. A bnormal E/E`, suggestive of elevated LVEDP. 24.4 Left ventricular ejection fraction is measured at 15 %. 2 . Normal right ventricular size. Mild right ventricular hypokinesis. Linear artifact seen in the right ventricle is suggestive of a c atheter, pacer lead, or ICD lead. 3 . There is non-specific thickening of the mitral valve leaflets. Mild to moderate mitral valve regurgitation. 4 . There is trace physiologic tricuspid valve regurgitation. Juwan Zavala MD [id number],C,No new angina Torrey Maldonado [id number],C,T olerating Metorpolol. Will start him on Spironolactone 25mg. 1 new episode on 12/29/21 in VF zone t erminated with ATP. 10 NSVT episodes. A ppear to be af with RVR. HF trending s hows no elevation. Battery ok. Torrey Maldonado [id number],C,1 new episode on 12/29/21 in VF zone t erminated with ATP. 10 NSVT episodes. A ppear to be af with RVR. HF trending s hows no elevation. Battery ok. Torrey Maldonado [id number],C, H is updated medication list for this problem includes: Warfarin 2 Mg Tablet (Warfarin) ..... Take 1 tablet by mouth every evening expect on saturday and saturday take 1/2 tab Lopressor 50 Mg Tablet (Metoprolol tartrate) ..... Take 1/2 tablet by mouth twice a day take 25mg twice daily Torrey Maldonado [id number],C, B P today: 102/70 P rior BP: 110/75 (01/19/2022) Labs Reviewed: C reat: 1.80 (06/04/2020) C hol: 287 (06/04/2020) HDL: 46 (06/04/2020) Torrey Maldonado [id number],C,Resolved sinc e starting Lasix. Torrey Maldonado [id number],S,Stable INRs,. no bleeding Juwan Zavala MD [id number],C, S elective coronary angiography, left ventriculography, right heart c atheterization, bilateral selective renal angiography with JR4 catheter, intra-aortic balloon pump i mplantation, cutting balloon PTCA of the LAD with a 3.5 mm x 10 mm cutting balloon and stenting of the L AD with a 3.5 x 18 Integrity bare-metal stent in the setting of a non-STEMI presentation, intra-arterial I ntegrilin administration, and intra-arterial adenosine administration in the setting of no-reflow Juwan Zavala MD [id number],S,H aving VT, VF started lopressor 25mg bid. Reinterrogate device. H aving VT reviewed with pt. Has ICD in place. Will add lopressor 25mg bid. BP shoudl tolerate. Add magnesium 400mg bid. Juwan Zavala MD [id number],S,C ONCLUSIONS: 1 . Abnormal septal motion consistent with pacemaker or ICD implant . Severe global left ventricular systolic hypokinesis. N ormal left ventricular size. Normal left ventricular wall thickness. E to A ratio is consistent with restrictive physiology. A bnormal E/E`, suggestive of elevated LVEDP. 24.4 Left ventricular ejection fraction is measured at 15 %. 2. Normal right ventricular size. Mild right ventricular hypokinesis. Linear artifact seen in the right ventricle is suggestive of a c atheter, pacer lead, or ICD lead. 3 . There is non-specific thickening of the mitral valve leaflets. Mild to moderate mitral valve regurgitation. 4 . There is trace physiologic tricuspid valve regurgitation. Juwan Zavala MD [id number],C, H is updated medication list for this problem includes: Warfarin 2 Mg Tablet (Warfarin) ..... Take 1 tablet by mouth every evening as directed except on mon, wed,fri, sat take 1 1/2 tab Stable on Coumadin. Juwan Zavala MD [id number],S,C Urrently not on any amio. Left ventricular ejection fraction is estimated at 15 %. His updated medication list for this problem includes: Warfarin 2 Mg Tablet (Warfarin) ..... Take 1 tablet by mouth every evening as directed except on mon, wed,fri, sat take 1 1/2 tab Furosemide 40 Mg Tablet (Furosemide) ..... Take 1/2 tablet by mouth every other day decreasd dose Juwan Zavala MD [id number],S,C ONCLUSIONS: 1 . Abnormal septal motion consistent with pacemaker or ICD implant . Severe global left ventricular systolic hypokinesis. N ormal left ventricular size. Normal left ventricular wall thickness. E to A ratio is consistent with restrictive physiology. A bnormal E/E`, suggestive of elevated LVEDP. 24.4 Left ventricular ejection fraction is measured at 15 %. 2. Normal right ventricular size. Mild right ventricular hypokinesis. Linear artifact seen in the right ventricle is suggestive of a c atheter, pacer lead, or ICD lead. 3 . There is non-specific thickening of the mitral valve leaflets. Mild to moderate mitral valve regurgitation. 4 . There is trace physiologic tricuspid valve regurgitation. Juwan Zavala MD [id number],C, S table on Coumadin. Gerard Doty [id number],C,D ECREASE furosemide to 20mg (half a tab of 40mg) every other day D ECREASE potassium to half a tablet every day S TOP losartan S TART midodrine 5mg one tab three times daily Rudynirmala Soren [id number],W, M ay have vertigo wants to see ENT. Stopped his losartan . hx of CHF. H as to stay on diuretic creatinine was 1.5 recently DECREASE furosemide to 20mg (half a tab of 40mg) every other day D ECREASE potassium to half a tablet every day S TOP losartan S TART midodrine 5mg one tab three times daily Gerard Doty [id number],C, C onclusions: Although there is airway obstruction and a diffusion defect suggesting emphysema, the absence of overinflation is inconsistent w ith that diagnosis. Although bronchodilators were not tested, a clinical trial may be helpful to assess the presence of a reversible c omponent. P ulmonary Function Diagnosis: M inimal Obstructive Airways Disease S evere Diffusion Defect N o significant changes in FEV1 and DLCO when compared to previous study. Juwan Zavala MD [id number],S, The symptoms began 1 month ago. The severity is described as severe. has SVT ( atrial flutter) and VT documented. r ecommend: EP study with arrhythmia ablation with carto CT , and anesthesia at [facility] - do not stop any meds before the ablation Juwan Zavala MD [id number],C, N eeds amio labs Left ventricular ejection fraction is estimated at 15 %. Juwan Zavala MD [id number],C, S elective coronary angiography, left ventriculography, right heart c atheterization, bilateral selective renal angiography with JR4 catheter, intra-aortic balloon pump i mplantation, cutting balloon PTCA of the LAD with a 3.5 mm x 10 mm cutting balloon and stenting of the L AD with a 3.5 x 18 Integrity bare-metal stent in the setting of a non-STEMI presentation, intra-arterial I ntegrilin administration, and intra-arterial adenosine administration in the setting of no-reflow Juwan Zavala MD [id number],S,m ost recent creatinine was 1.54 labs from 09/2021 Juwan Zavala MD [id number],C, S table on Coumadin. Juwan Zavala MD [id number],C, - C ONCLUSIONS: 1 . Severe global left ventricular systolic hypokinesis. Normal left ventricular size. Normal left ventricular wall thickness. E to A r atio is consistent with restrictive physiology. Abnormal E/E`, suggestive of elevated LVEDP. 23.1. Left ventricular ejection f raction is measured at 20 %. 2 . Normal right ventricular size. Normal right ventricular systolic function. Linear artifact seen in the right ventricle is s uggestive of a catheter, pacer lead, or ICD lead. 3 . There is non-specific thickening of the mitral valve leaflets. Mild to moderate mitral valve regurgitation. Juwan Zavala MD [id number],C,M ay have vertigo wants to see ENT. We stopped his losartan . hx of CHF. Has to stay on diuretic creatinine was 1.5 recently Juwan Zavala MD [id number],S,INR stable Sa josef Zavala MD [id number],C, S elective coronary angiography, left ventriculography, right heart c atheterization, bilateral selective renal angiography with JR4 catheter, intra-aortic balloon pump i mplantation, cutting balloon PTCA of the LAD with a 3.5 mm x 10 mm cutting balloon and stenting of the L AD with a 3.5 x 18 Integrity bare-metal stent in the setting of a non-STEMI presentation, intra-arterial I ntegrilin administration, and intra-arterial adenosine administration in the setting of no-reflow Juwan Zavala MD [id number],C,w ill stop losartan and continue with lasix. B P today: 126/68 P rior BP: 109/74 (07/15/2020) His updated medication list for this problem includes: Losartan Potassium 25 Mg Oral Tablet (Losartan potassium) ..... Take one tablet daily Furosemide 40 Mg Oral Tablet (Furosemide) ..... Take one pill every other day Juwan Zavala MD [id number],C,s uspect he has had orthostatic. Hold losartan. A lso has not taken carvedilol Juwan Zavala MD [id number],S,- C ONCLUSIONS: 1 . Severe global left ventricular systolic hypokinesis. Normal left ventricular size. Normal left ventricular wall thickness. E to A r atio is consistent with restrictive physiology. Abnormal E/E`, suggestive of elevated LVEDP. 23.1. Left ventricular ejection f raction is measured at 20 %. 2 . Normal right ventricular size. Normal right ventricular systolic function. Linear artifact seen in the right ventricle is s uggestive of a catheter, pacer lead, or ICD lead. 3 . There is non-specific thickening of the mitral valve leaflets. Mild to moderate mitral valve regurgitation. Juwan Zavala MD Telehealth:Onsresolv ing dizziness, will stop his Entresto for now and repeat echo, suspect he is experiencing hypotension, will repeat echo and check lab work. Orders: P do 20 (CPT-26363) C omplex e/m visit add on (G2211) C OMPREHENSIVE METABOLIC PANEL, W/EGFR (71119) C BC (INCLUDES DIFF/PLT) (6399) L IPID PANEL (7600) P ROBNP, N TERMINAL (61116) C ortisol (115092) Torrey Maldonado Telehealth: r ecently cardioverted at [facility] R emains in SR I f has more than 50% pacing in RV or recurrence of afib, may benefit from upgrade to BiV and AV willam ablation. His updated medication list for this problem includes: Dofetilide 250 Mcg Capsule (Dofetilide) ..... Take 1 capsule by mouth twice a day take first dose morning of 08/10/24 D iltiazem. O n OAC with eqlis, renal dose. Torrey Maldonado Telehealth:denies an randall His updated medication list for this problem includes: Diltiazem Hcl 90 Mg Tablet (Diltiazem hcl) ..... Take 1 tablet by mouth twice a day Torrey Maldonado Telehealth: c sherryically compensated m ild exeritonal SOB stable His updated medication list for this problem includes: Diltiazem Hcl 90 Mg Tablet (Diltiazem hcl) ..... Take 1 tablet by mouth twice a day Dofetilide 250 Mcg Capsule (Dofetilide) ..... Take 1 capsule by mouth twice a day take first dose morning of 08/10/24 Torrey Maldonado Electrophysiology:no rmal device function. 11months left on battery. Will need gen change soon. Alex Hackett DNP,[employer] Electrophysiology: r ecently cardioverted at [facility] R emains in SR I f has more than 50% pacing in RV or recurrence of afib, may benefit from upgrade to BiV and AV willam ablation. & #13;His updated medication list for this problem includes: Dofetilide 250 Mcg Capsule (Dofetilide) ..... Take 1 capsule by mouth twice a day take first dose morning of 08/10/24 D iltiazem. O n OAC with eqlis, renal dose. Alex Hackett DNP,[facility] Electrophysiology:So me dizziness and lightheadednes still. Advised to consume 6 cups of water per day. May need medication changes if it continues. Alex Hackett DNP,[facility] Electrophysiology: c ontinues entresto c linically compensated m ild exeritonal SOB stable His updated medication list for this problem includes: Diltiazem Hcl 90 Mg Tablet (Diltiazem hcl) ..... Take 1 tablet by mouth twice a day Dofetilide 250 Mcg Capsule (Dofetilide) ..... Take 1 capsule by mouth twice a day take first dose morning of 08/10/24 Alex Hackett DNP,[facility] Electrophysiology: E F of 20% on last echo with combined systolic and diastolic dysfunction R emains on GDMT as tolerated I CD in place Alexandro Triplett Electrophysiology:Th is visit has been a part of the consistent, comprehensive, and ongoing management of the chronic medical condition(s) listed above for the patient. BP today: 125/86 P rior BP: 111/80 (05/29/2024) Labs Reviewed: C reat: 1.80 (06/04/2020) C hol: 287 (06/04/2020) HDL: 46 (06/04/2020) LDL: 215 (06/04/2020) T (06/04/2020) The following medications were removed from the medication list: Furosemide 40 Mg Tablet (Furosemide) ..... Take 1 tablet by mouth every other day Carvedilol 6.25 Mg Tablet (Carvedilol) ..... Take 1 tablet by mouth twice a day His updated medication list for this problem includes: Diltiazem Hcl 90 Mg Tablet (Diltiazem hcl) ..... Take 1 tablet by mouth twice a day Alexandro Triplett Electrophysiology: r ecently cardioverted at [facility] today s top amiodaonre, start tikosyn 250mcg on saturday - ekgs in office on sat, , and wed s tart diltiazem 90mg BID and mag p t was upset that he didn't get called when his HR was spiking into the 180s on rpm I f has more than 50% pacing in RV or recurrence of afib, may benefit from upgrade to BiV and AV willam ablation. Alexandro Millardradha Electrophysiology: c ontinues entresto c linically compensated m ild exeritonal SOB stable The following medications were removed from the medication list: Amiodarone 200 Mg Tablet (Amiodarone) ..... Take 1 tablet by mouth twice daily Furosemide 40 Mg Tablet (Furosemide) ..... Take 1 tablet by mouth every other day Carvedilol 6.25 Mg Tablet (Carvedilol) ..... Take 1 tablet by mouth twice a day His updated medication list for this problem includes: Diltiazem Hcl 90 Mg Tablet (Diltiazem hcl) ..... Take 1 tablet by mouth twice a day Dofetilide 250 Mcg Capsule (Dofetilide) ..... Take 1 capsule by mouth twice a day take first dose morning of 08/10/24 Alexandro Millardradha Cardiology: His updated medication list for this problem includes: Atorvastatin 40 Mg Tablet (Atorvastatin) ..... Take 1 tablet by mouth once a day Karis Roberts NP Cardiology: C onclusions: Although there is airway obstruction and a diffusion defect suggesting emphysema, the absence of overinflation is inconsistent w ith that diagnosis. Although bronchodilators were not tested, a clinical trial may be helpful to assess the presence of a reversible c omponent. P ulmonary Function Diagnosis: M inimal Obstructive Airways Disease S evere Diffusion Defect N o significant changes in FEV1 and DLCO when compared to previous study. Karis Roberts NP Cardiology: h as [employer] ICD Battery Longevity: 1 year remaining Karis Roberts NP Cardiology: E cho 02/2024 CONCLUSIONS: 1 . Severe global left ventricular systolic hypokinesis. There is akinesis in the apex. Normal left ventricular size. Normal left v entricular wall thickness. There is E to A wave reversal consistent with impaired LV relaxation. E/E': 12.4. Left ventricular e jection fraction is measured at 25 %. 2 . Normal right ventricular size. Linear artifact seen in the right ventricle is suggestive of a catheter, pacer lead, or ICD lead. 3 . There is non-specific thickening of the mitral valve leaflets. Moderate mitral valve regurgitation. Karis Roberts NP Cardiology: H as been chronic ongoing dizziness N o orthostatic changes on exam today D evice check shows normal function with no arrythmia B P at goal at home c oncern for otitis media have asked him to see PCP Suspect that he may be having dehydration vs. inner ear issues, as he has been havign dizziness for erxtended periods of time. May 29, 2024 W ill adjust BP meds and monitor for improvement in symptoms Karis Roberts NP Cardiology: E cho 02/2024 CONCLUSIONS: 1 . Severe global left ventricular systolic hypokinesis. There is akinesis in the apex. Normal left ventricular size. Normal left v entricular wall thickness. There is E to A wave reversal consistent with impaired LV relaxation. E/E': 12.4. Left ventricular e jection fraction is measured at 25 %. 2 . Normal right ventricular size. Linear artifact seen in the right ventricle is suggestive of a catheter, pacer lead, or ICD lead. 3 . There is non-specific thickening of the mitral valve leaflets. Moderate mitral valve regurgitation. No current symptoms. Karis Roberts NP Cardiology: n one noted on last device check o n eliquis for AC with no bleeding issues or concerns H is updated medication list for this problem includes: Carvedilol 6.25 Mg Tablet (Carvedilol) ..... Take 1 tablet by mouth twice a day Karis Roberts NP Cardiology: L ast ov R ecently at [facility] for Decomp. Ideally start on Farxiga or jardiance. May 29, 2024 C urrebtly on Farxiga. Well tolerated. W ill reduce Entresto to 1/2 tablet twice daily Karis Roberts NP Cardiology: E F of 20% on last echo with combined systolic and diastolic dysfunction R emains on GDMT I CD in place Karis Roberts NP Cardiology: C onclusions: Although there is airway obstruction and a diffusion defect suggesting emphysema, the absence of overinflation is inconsistent w ith that diagnosis. Although bronchodilators were not tested, a clinical trial may be helpful to assess the presence of a reversible c omponent. P ulmonary Function Diagnosis: M inimal Obstructive Airways Disease S evere Diffusion Defect N o significant changes in FEV1 and DLCO when compared to previous study. Juwan Zavala MD Cardiology:This visi t has been a part of the consistent, comprehensive, and ongoing management of the chronic medical condition(s) listed above for the patient. n one noted on last device check r emains on amiodarone and BB o n eliquis for AC Juwan Zavala MD Cardiology:This visi t has been a part of the consistent, comprehensive, and ongoing management of the chronic medical condition(s) listed above for the patient. h as [employer] ICDBattery Longevity: 1 year and 6 m onths remaining Juwan Zavala MD Cardiology: H as been chronic ongoing dizziness N o orthostatic changes on exam today D evice check shows normal function with no arrythmia B P at goal at home c oncern for otitis media have asked him to see PCP S uspect that he may be having dehydration vs. inner ear issues, as he has been havign dizziness for erxtended periods of time. Juwan Zavala MD Cardiology: w ill do f/u echo Juwan Zavala MD Cardiology:This visi t has been a part of the consistent, comprehensive, and ongoing management of the chronic medical condition(s) listed above for the patient. E F of 20% on last echo with combined systolic and diastolic dysfunction R emains on GDMT I CD in place September 13, 2023 U nchanged. EF 20% by echo 06-10-2023 Juwan Zavala MD Cardiology:This visi t has been a part of the consistent, comprehensive, and ongoing management of the chronic medical condition(s) listed above for the patient. Recently at [facility] for Decomp. Ideally start on Farxiga or jardiance. Juwan Zavala MD Cardiology:Occassion ly gets hypotensive, told him to supplement sodium in diet when it happens H is updated medication list for this problem includes: Carvedilol 3.125 Mg Tablet (Carvedilol) ..... Take 1 tablet by mouth twice a day Furosemide 40 Mg Tablet (Furosemide) ..... Take 1 tablet by mouth every other day Juwan Zavala MD Cardiology:CONCLUSIO NS: 1 . Abnormal septal motion consistent with pacemaker or ICD implant . Severe global left ventricular systolic hypokinesis. N ormal left ventricular size. Normal left ventricular wall thickness. There is E to A wave reversal consistent with impaired LV r elaxation. E/E': 12.4 Left ventricular ejection fraction is measured at 20 %. 2 . Normal right ventricular size. Normal right ventricular systolic function. Linear artifact seen in the right ventricle is s uggestive of a catheter, pacer lead, or ICD lead. 3 . There is non-specific thickening of the mitral valve leaflets. Mild to moderate mitral valve regurgitation. E lectronically signed by Juwan Zavala MD on 06/16/2023 at 8:03 PM Juwan Zavala MD Cardiology: h as [employer] Longevity: 1 year and 6 m onths remaining Juwan Zavala MD Cardiology: 1 new episode on 12/29/21 in VF zone t erminated with ATP. 10 NSVT episodes. A ppear to be af with RVR. HF trending s hows no elevation. Battery ok. October 10, 2022 Battery Longevity: 2 years and 6 months remaining P resenting EGM: Ap Vs 75bpm. Battery s tatus normal. Lead trends appear s table. HF trends normal. AT/AF burden 9 .7 days, NSVT episode on 08-13-22 for 1 -2seconds duration. Appropriate device f unction. Patient is on OAC. - Perez Fall on 09-17-2022 6:40 AM Juwan Zavala MD Cardiology: a symptomatic w ill do f/u echo O NCLUSIONS: 1 . Abnormal septal motion consistent with pacemaker or ICD implant . Severe global left ventricular systolic hypokinesis. N ormal left ventricular size. Normal left ventricular wall thickness. There is E to A wave reversal consistent with impaired LV r elaxation. E/E': 12.4 Left ventricular ejection fraction is measured at 20 %. 2 . Normal right ventricular size. Normal right ventricular systolic function. Linear artifact seen in the right ventricle is s uggestive of a catheter, pacer lead, or ICD lead. 3 . There is non-specific thickening of the mitral valve leaflets. Mild to moderate mitral valve regurgitation. Juwan Zavala MD Cardiology: a symptomatic w ill do f/u echo O NCLUSIONS: 1 . Abnormal septal motion consistent with pacemaker or ICD implant . Severe global left ventricular systolic hypokinesis. N ormal left ventricular size. Normal left ventricular wall thickness. There is E to A wave reversal consistent with impaired LV r elaxation. E/E': 12.4 Left ventricular ejection fraction is measured at 20 %. 2 . Normal right ventricular size. Normal right ventricular systolic function. Linear artifact seen in the right ventricle is s uggestive of a catheter, pacer lead, or ICD lead. 3 . There is non-specific thickening of the mitral valve leaflets. Mild to moderate mitral valve regurgitation. Juwan Zavala MD Cardiology: n one noted on last device check r emains on amiodarone and BB o n eliquis for AC Juwan Zavala MD Cardiology: R ecent labs showed LDL 172, HDL- 55, trigs-113, TC 250. TSH normal. sodium 134, Cr 1.36. remains on eliquis, no bleeding issues. On lipitor 40mg, cholesterol high. prior stent to LAD. Good candidate for prevail study H is updated medication list for this problem includes: Lipitor 40 Mg Tablet (Atorvastatin) ..... Take 1 tablet by mouth every night at bedtime Juwan Zavala MD Cardiology: h as [employer] ICD Juwan Zavala MD Cardiology:EF of 20% on last echo with combined systolic and diastolic dysfunction R emains on GDMT I CD in place September 13, 2023 U nchanged. EF 20% by echo 06-10-2023 Juwan Zavala MD Cardiology:BP 107/66 A verage per home RPM 121/69 (controlled) His updated medication list for this problem includes: Carvedilol 3.125 Mg Tablet (Carvedilol) ..... Take 1 tablet by mouth twice a day Furosemide 40 Mg Tablet (Furosemide) ..... Take 1 tablet by mouth every other day Breaneri Lee [facility] Cardiology:follow up CT was ordered as patient on amiodarone w as not done will re-order Brea Rosa [facility] Cardiology:EF of 20% on last echo with combined systolic and diastolic dysfunction R emains on GDMT I CD [facility] Cardiology:none note d on last device check r emains on amiodarone and BB o n eliquis for AC [facility] Cardiology:will do f/u echo [facility] Cardiology:Has been chronic ongoing dizziness N o orthostatic changes on exam today D evice check shows normal function with no arrythmia B P at goal at home c oncern for otitis media have asked him to see PCP [facility] Cardiology:asymptoma tic w ill do f/u [facility] Cardiology: E CHO 05/22/22 CONCLUSIONS: 1 . Technically difficult study, limited views secondary to poor acoustic windows. Interpretation is based on available limited v iews. Severe global left ventricular systolic hypokinesis. Normal left ventricular wall thickness. Mild enlargement of left v entricular chamber. Mitral inflow Doppler demonstrates pseudonormal pattern consistent with diastolic dysfunction. E/E': 1 3.2 Left ventricular ejection fraction is measured at 20 %. 2 . Normal right ventricular size. Normal right ventricular systolic function. Linear artifact seen in the right ventricle is s uggestive of a catheter, pacer lead, or ICD lead. 3 . Normal appearing mitral valve leaflets. Mild to moderate mitral valve regurgitation. Juwan Zavala MD Cardiology Juwan Zavala MD Cardiology: C onclusions: Although there is airway obstruction and a diffusion defect suggesting emphysema, the absence of overinflation is inconsistent w ith that diagnosis. Although bronchodilators were not tested, a clinical trial may be helpful to assess the presence of a reversible c omponent. P ulmonary Function Diagnosis: M inimal Obstructive Airways Disease S evere Diffusion Defect N o significant changes in FEV1 and DLCO when compared to previous study. Juwan Zavala MD Cardiology:pacemaker function okay and remians on eliquis for AFIB S R and atrial paced Juwan Zavala MD Cardiology:has [employer] ICD Juwan Zavala MD Cardiology:CT pending fro amniod erone Juwan Zavala MD Cardiology: H e was supposed to be on Entresto, but is now on Ramipril from Sushil. June 15, 2022 C reatine was (2.39) contine with DUNCAN with LV dysfunction. Reduce Amiodarone to 100mg once daily October 10, 2022 c heck amio labs February 15, 2023 l abs reviewed cr was 1.9 Juwan Zavala MD Cardiology: S R and atrial paced Juwan Zavala MD Cardiology: 1 new episode on 12/29/21 in VF zone t erminated with ATP. 10 NSVT episodes. A ppear to be af with RVR. HF trending s hows no elevation. Battery ok. October 10, 2022 Battery Longevity: 2 years and 6 months remaining P resenting EGM: Ap Vs 75bpm. Battery s tatus normal. Lead trends appear s table. HF trends normal. AT/AF burden 9 .7 days, NSVT episode on 08-13-22 for 1 -2seconds duration. Appropriate device f unction. Patient is on OAC. - Perez Fall on 09-17-2022 6:40 AM Juwan Zavala MD Cardiology: C ONCLUSIONS: 1 . Abnormal septal motion consistent with pacemaker or ICD implant . Severe global left ventricular systolic hypokinesis. N ormal left ventricular size. Normal left ventricular wall thickness. E to A ratio is consistent with restrictive physiology. A bnormal E/E`, suggestive of elevated LVEDP. 24.4 Left ventricular ejection fraction is measured at 15 %. 2 . Normal right ventricular size. Mild right ventricular hypokinesis. Linear artifact seen in the right ventricle is suggestive of a c atheter, pacer lead, or ICD lead. 3 . There is non-specific thickening of the mitral valve leaflets. Mild to moderate mitral valve regurgitation. 4 . There is trace physiologic tricuspid valve regurgitation. Juwan Zavala MD Cardiology: N o new angina Juwan Zavala MD Cardiology:on eliquis Juwan Zavala MD Cardiology: H antonio was supposed to be on Entresto, but is now on Ramipril from Sushil. June 15, 2022 C reatine was (2.39) contine with DUNCAN with LV dysfunction. Reduce Amiodarone to 100mg once daily October 10, 2022 c heck amio labs Juwan Zavala MD Cardiology:ECHO 05/05 03/26 CONCLUSIONS: 1 . Technically difficult study, limited views secondary to poor acoustic windows. Interpretation is based on available limited v iews. Severe global left ventricular systolic hypokinesis. Normal left ventricular wall thickness. Mild enlargement of left v entricular chamber. Mitral inflow Doppler demonstrates pseudonormal pattern consistent with diastolic dysfunction. E/E': 1 3.2 Left ventricular ejection fraction is measured at 20 %. 2 . Normal right ventricular size. Normal right ventricular systolic function. Linear artifact seen in the right ventricle is s uggestive of a catheter, pacer lead, or ICD lead. 3 . Normal appearing mitral valve leaflets. Mild to moderate mitral valve regurgitation. Juwan Zavala MD Cardiology: H antonio was supposed to be on Entresto, but is now on Ramipril from Sushil. June 15, 2022 C reatine was (2.39) contine with DUNCAN with LV dysfunction. Reduce Amiodarone to 100mg once daily Juwan Zavala MD Cardiology: N o recent Vtach, need to reduce amio, will likely stop in the next couple of weeks. Will reduce to 100mg mon, wed, frid and plan on stopping assuming that he is no longer having episodes of VT. Check PFTs. EKG is SR and atrial pacing Juwan Zavala MD Cardiology: C ONCLUSIONS: 1 . Abnormal septal motion consistent with pacemaker or ICD implant . Severe global left ventricular systolic hypokinesis. N ormal left ventricular size. Normal left ventricular wall thickness. E to A ratio is consistent with restrictive physiology. A bnormal E/E`, suggestive of elevated LVEDP. 24.4 Left ventricular ejection fraction is measured at 15 %. 2 . Normal right ventricular size. Mild right ventricular hypokinesis. Linear artifact seen in the right ventricle is suggestive of a c atheter, pacer lead, or ICD lead. 3 . There is non-specific thickening of the mitral valve leaflets. Mild to moderate mitral valve regurgitation. 4 . There is trace physiologic tricuspid valve regurgitation. Juwan Zavala MD Cardiology: M ay have vertigo wants to see ENT. Stopped his losartan . hx of CHF. H as to stay on diuretic creatinine was 1.5 recently June 15, 2022 C reatine 2.39 on May 16 labs Juwan Zavala MD Cardiology:He was bauman pposed to be on Entresto, but is now on Ramipril from Sushil. Juwan Zavala MD Cardiology:See what' s going on with the renal function. Check labs. Juwan Zavala MD Cardiology: S table INRs,. no bleeding May 16, 2022 A pparently was changed to Eliquis 2.5 BID. Unclear to me when. Juwan Zavala MD Cardiology: C ONCLUSIONS: 1 . Abnormal septal motion consistent with pacemaker or ICD implant . Severe global left ventricular systolic hypokinesis. N ormal left ventricular size. Normal left ventricular wall thickness. E to A ratio is consistent with restrictive physiology. A bnormal E/E`, suggestive of elevated LVEDP. 24.4 Left ventricular ejection fraction is measured at 15 %. 2 . Normal right ventricular size. Mild right ventricular hypokinesis. Linear artifact seen in the right ventricle is suggestive of a c atheter, pacer lead, or ICD lead. 3 . There is non-specific thickening of the mitral valve leaflets. Mild to moderate mitral valve regurgitation. 4 . There is trace physiologic tricuspid valve regurgitation. Juwan Zavala MD Electrophysiology:No new angina Torrey Maldonado Electrophysiology:To lerating Metorpolol. Will start him on Spironolactone 25mg. 1 new episode on 12/29/21 in VF zone t erminated with ATP. 10 NSVT episodes. A ppear to be af with RVR. HF trending s hows no elevation. Battery ok. Torrey Maldonado Electrophysiology:1 new episode on 12/29/21 in VF zone t erminated with ATP. 10 NSVT episodes. A ppear to be af with RVR. HF trending s hows no elevation. Battery ok. Torrey Maldonado Electrophysiology: H is updated medication list for this problem includes: Warfarin 2 Mg Tablet (Warfarin) ..... Take 1 tablet by mouth every evening expect on saturday and saturday take 1/2 tab Lopressor 50 Mg Tablet (Metoprolol tartrate) ..... Take 1/2 tablet by mouth twice a day take 25mg twice daily Torrey Maldonado Electrophysiology: B P today: 102/70 P rior BP: 110/75 (01/19/2022) Labs Reviewed: C reat: 1.80 (06/04/2020) C hol: 287 (06/04/2020) HDL: 46 (06/04/2020) Torrey Maldonado Electrophysiology:Resolved since starting Lasix. Torrey Maldonado Cardiology[RxRsp]:Stable INRs,. no bleeding Juwan Zavala MD Cardiology[RxRsp]: S elective coronary angiography, left ventriculography, right heart c atheterization, bilateral selective renal angiography with JR4 catheter, intra-aortic balloon pump i mplantation, cutting balloon PTCA of the LAD with a 3.5 mm x 10 mm cutting balloon and stenting of the L AD with a 3.5 x 18 Integrity bare-metal stent in the setting of a non-STEMI presentation, intra-arterial I ntegrilin administration, and intra-arterial adenosine administration in the setting of no-reflow Juwan Zavala MD Cardiology[RxRsp]:Islas ving VT, VF started lopressor 25mg bid. Reinterrogate device. H aving VT reviewed with pt. Has ICD in place. Will add lopressor 25mg bid. BP shoudl tolerate. Add magnesium 400mg bid. Juwan Zavala MD Cardiology:CONCLUSIO NS: 1 . Abnormal septal motion consistent with pacemaker or ICD implant . Severe global left ventricular systolic hypokinesis. N ormal left ventricular size. Normal left ventricular wall thickness. E to A ratio is consistent with restrictive physiology. A bnormal E/E`, suggestive of elevated LVEDP. 24.4 Left ventricular ejection fraction is measured at 15 %. 2 . Normal right ventricular size. Mild right ventricular hypokinesis. Linear artifact seen in the right ventricle is suggestive of a c atheter, pacer lead, or ICD lead. 3 . There is non-specific thickening of the mitral valve leaflets. Mild to moderate mitral valve regurgitation. 4 . There is trace physiologic tricuspid valve regurgitation. Juwan Zavala MD Cardiology: H is updated medication list for this problem includes: Warfarin 2 Mg Tablet (Warfarin) ..... Take 1 tablet by mouth every evening as directed except on mon, wed,fri, sat take 1 1/2 tab Stable on Coumadin. Juwan Zavala MD Cardiology:CUrrently not on any amio. Left ventricular ejection fraction is estimated at 15 %. His updated medication list for this problem includes: Warfarin 2 Mg Tablet (Warfarin) ..... Take 1 tablet by mouth every evening as directed except on mon, wed,fri, sat take 1 1/2 tab Furosemide 40 Mg Tablet (Furosemide) ..... Take 1/2 tablet by mouth every other day decreasd dose Juwan Zavala MD Cardiology:CONCLUSIO NS: 1 . Abnormal septal motion consistent with pacemaker or ICD implant . Severe global left ventricular systolic hypokinesis. N ormal left ventricular size. Normal left ventricular wall thickness. E to A ratio is consistent with restrictive physiology. A bnormal E/E`, suggestive of elevated LVEDP. 24.4 Left ventricular ejection fraction is measured at 15 %. 2 . Normal right ventricular size. Mild right ventricular hypokinesis. Linear artifact seen in the right ventricle is suggestive of a c atheter, pacer lead, or ICD lead. 3 . There is non-specific thickening of the mitral valve leaflets. Mild to moderate mitral valve regurgitation. 4 . There is trace physiologic tricuspid valve regurgitation. Juwan Zavala MD Cardiology: S table on Coumadin. Gerard Doty Cardiology:DECREASE furosemide to 20mg (half a tab of 40mg) every other day D ECREASE potassium to half a tablet every day S TOP losartan S TART midodrine 5mg one tab three times daily Gerard Doty Cardiology: M ay have vertigo wants to see ENT. Stopped his losartan . hx of CHF. H as to stay on diuretic creatinine was 1.5 recently DECREASE furosemide to 20mg (half a tab of 40mg) every other day D ECREASE potassium to half a tablet every day S TOP losartan S TART midodrine 5mg one tab three times daily Gerard Doty Cardiology: C onclusions: Although there is airway obstruction and a diffusion defect suggesting emphysema, the absence of overinflation is inconsistent w ith that diagnosis. Although bronchodilators were not tested, a clinical trial may be helpful to assess the presence of a reversible c omponent. P ulmonary Function Diagnosis: M inimal Obstructive Airways Disease S evere Diffusion Defect N o significant changes in FEV1 and DLCO when compared to previous study. Juwan Zavala MD Cardiology: The symptoms began 1 month ago. The severity is described as severe. has SVT ( atrial flutter) and VT documented. r ecommend: EP study with arrhythmia ablation with carto CT , and anesthesia at [facility] - do not stop any meds before the ablation Juwan Zavala MD Cardiology: N eeds amio labs Left ventricular ejection fraction is estimated at 15 %. Juwan Zavala MD Cardiology: S elective coronary angiography, left ventriculography, right heart c atheterization, bilateral selective renal angiography with JR4 catheter, intra-aortic balloon pump i mplantation, cutting balloon PTCA of the LAD with a 3.5 mm x 10 mm cutting balloon and stenting of the L AD with a 3.5 x 18 Integrity bare-metal stent in the setting of a non-STEMI presentation, intra-arterial I ntegrilin administration, and intra-arterial adenosine administration in the setting of no-reflow Juwan Zavala MD Cardiology:most rece nt creatinine was 1.54 labs from 09/2021 Juwan Zavala MD Cardiology: S table on Coumadin. Juwan Zavala MD Cardiology: - C ONCLUSIONS: 1 . Severe global left ventricular systolic hypokinesis. Normal left ventricular size. Normal left ventricular wall thickness. E to A r atio is consistent with restrictive physiology. Abnormal E/E`, suggestive of elevated LVEDP. 23.1. Left ventricular ejection f raction is measured at 20 %. 2 . Normal right ventricular size. Normal right ventricular systolic function. Linear artifact seen in the right ventricle is s uggestive of a catheter, pacer lead, or ICD lead. 3 . There is non-specific thickening of the mitral valve leaflets. Mild to moderate mitral valve regurgitation. Juwan Zavala MD Cardiology:May have vertigo wants to see ENT. We stopped his losartan . hx of CHF. Has to stay on diuretic creatinine was 1.5 recently Juwan Zavala MD Cardiology:INR stable Juwan Zavala MD Cardiology: S elective coronary angiography, left ventriculography, right heart c atheterization, bilateral selective renal angiography with JR4 catheter, intra-aortic balloon pump i mplantation, cutting balloon PTCA of the LAD with a 3.5 mm x 10 mm cutting balloon and stenting of the L AD with a 3.5 x 18 Integrity bare-metal stent in the setting of a non-STEMI presentation, intra-arterial I ntegrilin administration, and intra-arterial adenosine administration in the setting of no-reflow Juwan Zavala MD Cardiology:will stop losartan and continue with lasix. B P today: 126/68 P rior BP: 109/74 (07/15/2020) His updated medication list for this problem includes: Losartan Potassium 25 Mg Oral Tablet (Losartan potassium) ..... Take one tablet daily Furosemide 40 Mg Oral Tablet (Furosemide) ..... Take one pill every other day Juwan Zavala MD Cardiology:suspect h e has had orthostatic. Hold losartan. A lso has not taken carvedilol Juwan Zavala MD Cardiology:- C ONCLUSIONS: 1 . Severe global left ventricular systolic hypokinesis. Normal left ventricular size. Normal left ventricular wall thickness. E to A r atio is consistent with restrictive physiology. Abnormal E/E`, suggestive of elevated LVEDP. 23.1. Left ventricular ejection f raction is measured at 20 %. 2 . Normal right ventricular size. Normal right ventricular systolic function. Linear artifact seen in the right ventricle is s uggestive of a catheter, pacer lead, or ICD lead. 3 . There is non-specific thickening of the mitral valve leaflets. Mild to moderate mitral valve regurgitation. Juwan Zavala MD Cardiology Follow up : B P today: 126/68 P rior BP: 109/74 (07/15/2020) His updated medication list for this problem includes: Losartan Potassium 25 Mg Oral Tablet (Losartan potassium) ..... Take one tablet daily Furosemide 40 Mg Oral Tablet (Furosemide) ..... Take one pill every other day Juwan Zavala MD Cardiology Follow up : H as severe LV dysfunction. May not be a good idea to stop coumadin because he is stable on it and may re develop clot if we take him off. CONCLUSIONS: 1 . Severe global left ventricular systolic hypokinesis. Normal left ventricular size. Normal left ventricular wall thickness. E to A r atio is consistent with restrictive physiology. Abnormal E/E`, suggestive of elevated LVEDP. 23.1. Left ventricular ejection f raction is measured at 20 %. 2 . Normal right ventricular size. Normal right ventricular systolic function. Linear artifact seen in the right ventricle is s uggestive of a catheter, pacer lead, or ICD lead. 3 . There is non-specific thickening of the mitral valve leaflets. Mild to moderate mitral valve regurgitation. E lectronically Signed By: Juwan Zavala MD Cardiology Follow up : S table on Coumadin. Juwan Zavala MD Cardiology Follow up : C ONCLUSIONS: 1 . Severe global left ventricular systolic hypokinesis. Normal left ventricular size. Normal left ventricular wall thickness. E to A r atio is consistent with restrictive physiology. Abnormal E/E`, suggestive of elevated LVEDP. 23.1. Left ventricular ejection f raction is measured at 20 %. 2 . Normal right ventricular size. Normal right ventricular systolic function. Linear artifact seen in the right ventricle is s uggestive of a catheter, pacer lead, or ICD lead. 3 . There is non-specific thickening of the mitral valve leaflets. Mild to moderate mitral valve regurgitation. E lectronically Signed By: Juwan Zavala MD Cardiology Follow up : S elective coronary angiography, left ventriculography, right heart c atheterization, bilateral selective renal angiography with JR4 catheter, intra-aortic balloon pump implantation, cutting balloon PTCA of the LAD with a 3.5 mm x 10 mm cutting balloon and stenting of the L AD with a 3.5 x 18 Integrity bare-metal stent in the setting of a non-STEMI presentation, intra-arterial I ntegrilin administration, and intra-arterial adenosine administration in the setting of no-reflow Juwan Zavala MD Cardiology Follow up : C onclusions: Although there is airway obstruction and a diffusion defect suggesting emphysema, the absence of overinflation is inconsistent w ith that diagnosis. Although bronchodilators were not tested, a clinical trial may be helpful to assess the presence of a reversible c omponent. P ulmonary Function Diagnosis: M inimal Obstructive Airways Disease S evere Diffusion Defect N o significant changes in FEV1 and DLCO when compared to previous study. Juwan Zavala MD Cardiology follow up : W ill check on echo. Has been on coumadin. H as severe LV dysfunction. May not be a good idea to stop coumadin because he is stable on it and may re develop clot if we take him off. CONCLUSIONS: 1 . Severe global left ventricular systolic hypokinesis. Normal left ventricular size. Normal left ventricular wall thickness. E to A r atio is consistent with restrictive physiology. Abnormal E/E`, suggestive of elevated LVEDP. 23.1. Left ventricular ejection f raction is measured at 20 %. 2 . Normal right ventricular size. Normal right ventricular systolic function. Linear artifact seen in the right ventricle is s uggestive of a catheter, pacer lead, or ICD lead. 3 . There is non-specific thickening of the mitral valve leaflets. Mild to moderate mitral valve regurgitation. E lectronically Signed By: Juwan Zavala MD Cardiology follow up : S table on Coumadin. Juwan Zavala MD Cardiology follow up :Selective coronary angiography, left ventriculography, right heart c atheterization, bilateral selective renal angiography with JR4 catheter, intra-aortic balloon pump i mplantation, cutting balloon PTCA of the LAD with a 3.5 mm x 10 mm cutting balloon and stenting of the L AD with a 3.5 x 18 Integrity bare-metal stent in the setting of a non-STEMI presentation, intra-arterial I ntegrilin administration, and intra-arterial adenosine administration in the setting of no-reflow Juwan Zavala MD Cardiology follow up :Conclusions: Although there is airway obstruction and a diffusion defect suggesting emphysema, the absence of overinflation is inconsistent w ith that diagnosis. Although bronchodilators were not tested, a clinical trial may be helpful to assess the presence of a reversible c omponent. P ulmonary Function Diagnosis: M inimal Obstructive Airways Disease S evere Diffusion Defect N o significant changes in FEV1 and DLCO when compared to previous study. Juwan Zavala MD Cardiology follow up :CONCLUSIONS: 1 . Severe global left ventricular systolic hypokinesis. Normal left ventricular size. Normal left ventricular wall thickness. E to A r atio is consistent with restrictive physiology. Abnormal E/E`, suggestive of elevated LVEDP. 23.1. Left ventricular ejection f raction is measured at 20 %. 2 . Normal right ventricular size. Normal right ventricular systolic function. Linear artifact seen in the right ventricle is s uggestive of a catheter, pacer lead, or ICD lead. 3 . There is non-specific thickening of the mitral valve leaflets. Mild to moderate mitral valve regurgitation. E lectronically Signed By: Juwan Zavala MD Cardiology: n o recet Ischemic workup. Juwan Zavala MD Cardiology:LVEF 25% on echo. Mil graham . Juwan Zavala MD Cardiology Juwan Zavala MD Cardiology: H is updated medication list for this problem includes: *losartan 25mg Tab (Losartan potassium) ..... Take one tablet daily Furosemide 40 Mg Oral Tablet (Furosemide) ..... 1 tab daily BP today: 110/68 P rior BP: 115/80 (06/03/2020) Labs Reviewed: C reat: 1.80 (06/04/2020) C hol: 287 (06/04/2020) HDL: 46 (06/04/2020) Juwan Zavala MD Cardiology: S table on Coumadin. W ill DC Amiodarone Juwan Zavala MD Cardiology: W ill check on echo. Has been on coumadin. Juwan Zavala MD Cardiology:SR and atrial paced S allison Zavala MD Cardiology:Needs ami o labs Left ventricular ejection fraction is estimated at 15 %. Juwan Zavala MD Cardiology:No recent Vtach, need to reduce amio, will likely stop in the next couple of weeks. Will reduce to 100mg mon, wed, frid and plan on stopping assuming that he is no longer having episodes of VT. Check PFTs. EKG is SR and atrial pacing Juwan Zavala MD Cardiology Rachel Valle MD Cardiology Rachel Valle MD Cardiology Rachel Valle MD Cardiology Rachel Valle MD Cardiology Rachel Valle MD Cardiology follow up : W iell controlled. needs medrx for chf and htn H is updated medication list for this problem includes: Losartan Potassium 25 Mg Oral Tablet (Losartan potassium) ..... Take one tablet daily Furosemide 40 Mg Oral Tablet (Furosemide) ..... 1 tab daily BP today: 122/80 P rior BP: 122/72 (03/14/2018) Labs Reviewed: C reat: 1.03 (01/18/2014) C hol: 181 (09/10/2013) HDL: 48 (09/10/2013) T (09/10/2013) Juwan Zavala MD Cardiology follow up : W ill check on echo. Has been on coumadin. Juwan Zavala MD Cardiology follow up : n o recet Ischemic workup. Juwan Zavala MD Cardiology follow up :here for right forearm evaluation o k to come off coumadin for 3-5days preop and can resume when ok with surgeon post op for afb needs inr 2-3 n eeds echo and nuc stress has not had for 2 yrs Juwan Zavala MD Cardiology follow up :on coumadin H is updated medication list for this problem includes: Coumadin 2 Mg Oral Tablet (Warfarin sodium) ..... 1 tab [id number]-[id number], 1/2 tab rest of days Amiodarone Hcl 200 Mg Oral Tablet (Amiodarone hcl) ..... One tab. daily Juwan Zavala MD Cardiology follow up -for surgery clearance:Has ICD. [employer]. Juwan Zavala MD Cardiology follow up -for surgery clearance:[place]iell controlled. H is updated medication list for this problem includes: Losartan Potassium 25 Mg Oral Tablet (Losartan potassium) ..... Take one tablet daily Furosemide 40 Mg Oral Tablet (Furosemide) ..... 1 tab daily BP today: 122/80 P rior BP: 122/72 (03/14/2018) Labs Reviewed: C reat: 1.03 (01/18/2014) C hol: 181 (09/10/2013) HDL: 48 (09/10/2013) T (09/10/2013) Juwan Zavala MD Cardiology follow up -for surgery clearance:Will check on echo. Has been on coumadin. Juwan Zavala MD Cardiology follow up -for surgery clearance:Ischemic workup. Juwan Zavala MD Cardiology follow up -for surgery clearance:anterior cervical diskectomy and fusion from C5 to C6 has been recommended for the pt. Will schedule 2D echo and stress test. Please do in 1 week so that we can get him cleared if needed to be done soon. Juwan Zavala MD Cardiology follow up -for surgery clearance:Check LV function on echo. Juwan Zavala MD Cardiology: S table on Coumadin. Juwan Zavala MD Cardiology: C ontrolled. Manolo Stuart Cardiology Juwan Zavala MD Cardiology Juwan Zavala MD Cardiology Juwan Zavala MD Cardiology Follow up :Stable on Coumadin. Juwan Zavala MD Cardiology Follow up :Get amio testing. H is updated medication list for this problem includes: Coumadin 3 Mg Tabs (Warfarin sodium) ..... One tab [id number] only Losartan Potassium 25 Mg Oral Tabs (Losartan potassium) ..... Take one tablet daily Coumadin 2 Mg Tabs (Warfarin sodium) ..... 1 tab on sat-sat only Amiodarone Hcl 200 Mg Tabs (Amiodarone hcl) ..... One tab. daily Furosemide 40 Mg Tabs (Furosemide) ..... 1 tab daily Juwan Zavala MD Cardiology Follow up :EF has imp roveed to 25% Juwan Zavala MD Cardiology Follow up :Controlled ., Juwan Zavala MD Cardiology Follow u p :GEt amio testing. H is updated medication list for this problem includes: Coumadin 3 Mg Tabs (Warfarin sodium) ..... One tab [id number] only Losartan Potassium 25 Mg Oral Tabs (Losartan potassium) ..... Take one tablet daily Coumadin 2 Mg Tabs (Warfarin sodium) ..... 1 tab on only Amiodarone Hcl 200 Mg Tabs (Amiodarone hcl) ..... One tab. daily Furosemide 40 Mg Tabs (Furosemide) ..... 1 tab daily Juwan Zavala MD Cardiology Follow up :Stable on Coumaidn. Juwan Zavala MD Cardiology Follow up :ICD check completed today. Juwan Zavala MD Cardiology Follow up :Does not want to switch to Norvac and continue on coumadin. Complinace reemphasized. Juwan Zavala MD Cardiology Follow up :His LVF is 10%. No ICD shocks. Juwan Zavala MD Cardiology Follow up :Medical complinace reemphasized. Juwan Zavala MD Cardiology Follow up :GIVEN HIS SYMPTOMS OF HEARTBURN AND SOB AND PAST HISTORY OF STENT TO LAD, WILL GET LEXISCAN STRESS TEST. Juwan Zavala MD Cardiology Follow up Juwan galloway MD Cardiology: H is updated medication list for this problem includes: Furosemide 40 Mg Tabs (Furosemide) ..... 1 tab daily Losartan Potassium 25 Mg Tabs (Losartan potassium) ..... Take 1/2 tablet bid Brea Ventimiglia [facility] Cardiology Brea Ventimigl ia [facility] Cardiology: H is updated medication list for this problem includes: Coumadin 2.5 Mg Tabs (Warfarin sodium) ..... One tab daily Amiodarone Hcl 200 Mg Tabs (Amiodarone hcl) ..... One tab. daily Brea Ventimiglia [facility] Cardiology Brea Ventimigl ia [facility] Cardiology: H is updated medication list for this problem includes: Coumadin 2.5 Mg Tabs (Warfarin sodium) ..... One tab daily Brea Ventimiglia [facility] Cardiology: H is updated medication list for this problem includes: Coumadin 2.5 Mg Tabs (Warfarin sodium) ..... One tab daily Amiodarone Hcl 200 Mg Tabs (Amiodarone hcl) ..... One tab. daily Furosemide 40 Mg Tabs (Furosemide) ..... 1 tab daily Losartan Potassium 25 Mg Tabs (Losartan potassium) ..... Take 1/2 tablet bid Brea Ventimiglia [facility] Cardiology: H is updated medication list for this problem includes: Coumadin 2.5 Mg Tabs (Warfarin sodium) ..... One tab daily Amiodarone Hcl 200 Mg Tabs (Amiodarone hcl) ..... One tab. daily Brea Ventimiglia [facility] fu: I STRESSED THAT PATIENT CANNOT SIT OUT IN THE SUN GIVEN HIS AMIODARONE RX. His updated medication list for this problem includes: Amiodarone Hcl 200 Mg Tabs (Amiodarone hcl) ..... One tab. daily Coumadin 5 Mg Tabs (Warfarin sodium) ..... One a day; take w/your evening meal, avoid green vegetable while taking this med Juwan Zavala MD fu: H is updated medication list for this problem includes: Coumadin 5 Mg Tabs (Warfarin sodium) ..... One a day; take w/your evening meal, avoid green vegetable while taking this med Juwan Zavala MD fu:MED ADHERENCE ADV ISED AND REVEIWED WITH HIM H is updated medication list for this problem includes: Amiodarone Hcl 200 Mg Tabs (Amiodarone hcl) ..... One tab. daily Furosemide 40 Mg Tabs (Furosemide) ..... 1 tab daily Coumadin 5 Mg Tabs (Warfarin sodium) ..... One a day; take w/your evening meal, avoid green vegetable while taking this med Losartan Potassium 25 Mg Tabs (Losartan potassium) ..... Take 1/2 tablet bid Juwan Zavala MD fu Juwan Zavala MD fu:ON AMIODARONE Juwan danielle MD fu:RELATED TO LV DYSFUNCTION Joaquin Zavala MD fu:I STRESSED THAT [facility] CANNOT SIT OUT IN THE SUN GIVEN HIS AMIODARONE RX. Juwan Zavala MD fu:WILL DO ECHO AND STRESS ADENO SINE Juwan Zavala MD fu:ECHO TO EVALUATE IMPROVEMENT OF EF. M OST RECENT ECHO DONE IN 2013 SHOWED EF OF 15%. Juwan Zavala MD FU EP faxed 10/18/14 0926: T he following medications were removed from the medication list: Coreg 12.5 Mg Tabs (Carvedilol) ..... One tab. twice daily Aspirin 81 Mg Tabs (Aspirin) ..... One tab. daily Xanax 0.25 Mg Tabs (Alprazolam) ..... One tab. three times daily prn His updated medication list for this problem includes: Amiodarone Hcl 200 Mg Tabs (Amiodarone hcl) ..... One tab. daily Jantoven 2 Mg Tabs (Warfarin sodium) ..... 2 tabs po daily; take w/your evening meal Jose Ma MD FU EP faxed 10/18/14 0926: T he following medications were removed from the medication list: Coreg 12.5 Mg Tabs (Carvedilol) ..... One tab. twice daily Aspirin 81 Mg Tabs (Aspirin) ..... One tab. daily His updated medication list for this problem includes: Jantoven 2 Mg Tabs (Warfarin sodium) ..... 2 tabs po daily; take w/your evening meal Atorvastatin Calcium 40 Mg Tabs (Atorvastatin calcium) ..... Take one tablet at bedtime Jose Ma MD EP faxed 10/18/14 0926: T he following medications were removed from the medication list: Coreg 12.5 Mg Tabs (Carvedilol) ..... One tab. twice daily Aspirin 81 Mg Tabs (Aspirin) ..... One tab. daily His updated medication list for this problem includes: Furosemide 40 Mg Tabs (Furosemide) ..... 1 tab daily Amiodarone Hcl 200 Mg Tabs (Amiodarone hcl) ..... One tab. daily Jantoven 2 Mg Tabs (Warfarin sodium) ..... 2 tabs po daily; take w/your evening meal Losartan Potassium 25 Mg Tabs (Losartan potassium) ..... Take 1/2 tablet bid Spironolactone 25 Mg Tabs (Spironolactone) ..... One tab. daily Jose Ma MD FU EP faxed 10/18/14925:needs t o stop smoking Jose Ma MD FU EP faxed 10/18/14925 Jose Ma MD FU EP faxed 10/18/14925 Jose Ma MD FU EP faxed 10/18/14925 Jose Ma MD FU EP faxed 10/18/14925 Jose Ma MD ep follow up faxed 07/23/14 1039 Jose Ma MD ep follow up faxed 07/23/14 1039 Jose Ma MD ep follow up faxed 1 09/23/13 1039:had ICD implanted 01/22/2014 - [employer] by SK at [facility] E P study and atrial fibrillation and flutter ablation 06/21/2014 by SK at [facility] Jose Ma MD ep follow up faxed 1 09/23/13 1039:had ICD implanted 01/22/2014 - [employer] by SK at [facility] E P study and atrial fibrillation and flutter ablation 06/21/2014 by SK at [facility] updated medication list for this problem includes: Furosemide 40 Mg Tabs (Furosemide) ..... 1 tab daily Amiodarone Hcl 200 Mg Tabs (Amiodarone hcl) ..... One tab. daily Aspirin 81 Mg Tabs (Aspirin) ..... One tab. daily Jantoven 2 Mg Tabs (Warfarin sodium) ..... 2 tabs po daily; take w/your evening meal Coreg 12.5 Mg Tabs (Carvedilol) ..... One tab. twice daily Spironolactone 25 Mg Tabs (Spironolactone) ..... One tab. daily Jose Ma MD EP f/u faxed 4 1523:EP study and atrial fibrillation and flutter ablation 06/21/2014 by SK at [facility] FTS elba d ecrease dose of Amiodarone Hcl 200 Mg Tabs (Amiodarone hcl) ..... One tab. daily f u with SK in 1 month. I NR weekly for 1 month His updated medication list for this problem includes: Amiodarone Hcl 200 Mg Tabs (Amiodarone hcl) ..... One tab. daily Xanax 0.25 Mg Tabs (Alprazolam) ..... One tab. three times daily prn Aspirin 81 Mg Tabs (Aspirin) ..... One tab. daily Jantoven 2 Mg Tabs (Warfarin sodium) ..... 2 tabs po daily; take w/your evening meal Coreg 12.5 Mg Tabs (Carvedilol) ..... One tab. twice daily Orders: S marlenyle Followup (*) Jose Ma MD EP f/u faxed 4 1523:EP study and atrial fibrillation and flutter ablation 06/21/2014 by SK at [facility] d ecrease dose of Amiodarone Hcl 200 Mg Tabs (Amiodarone hcl) ..... One tab. daily f u with SK in 1 month. I NR weekly for 1 month His updated medication list for this problem includes: Amiodarone Hcl 200 Mg Tabs (Amiodarone hcl) ..... One tab. daily Aspirin 81 Mg Tabs (Aspirin) ..... One tab. daily Jantoven 2 Mg Tabs (Warfarin sodium) ..... 2 tabs po daily; take w/your evening meal Coreg 12.5 Mg Tabs (Carvedilol) ..... One tab. twice daily Spironolactone 25 Mg Tabs (Spironolactone) ..... One tab. daily Orders: S rejidule Followup (*) Jose Ma MD EP f/u faxed 4 1523: H is updated medication list for this problem includes: Amiodarone Hcl 200 Mg Tabs (Amiodarone hcl) ..... One tab. daily Aspirin 81 Mg Tabs (Aspirin) ..... One tab. daily Jantoven 2 Mg Tabs (Warfarin sodium) ..... 2 tabs po daily; take w/your evening meal Losartan Potassium 25 Mg Tabs (Losartan potassium) ..... Take 1/2 tablet bid Coreg 12.5 Mg Tabs (Carvedilol) ..... One tab. twice daily Spironolactone 25 Mg Tabs (Spironolactone) ..... One tab. daily Jose Ma MD EP f/u faxed 4 1523: O rders: S pirometry (CPT-15106) oJse Ma MD EP f/u faxed 4 1523:EP study and atrial fibrillation and flutter ablation 06/21/2014 by SK at [facility] Jose Ma MD EP f/u faxed 4 1523:EP study and atrial fibrillation and flutter ablation 06/21/2014 by SK at [facility] Jose Ma MD pre-op faxed 06/10/14 0933: The symptoms began 1 month ago. The severity is described as severe. has SVT ( atrial flutter) and VT documented. r ecommend: EP study with arrhythmia ablation with carto CT , and anesthesia at [facility] - do not stop any meds before the ablation Jose Ma MD pre-op faxed 06/10/14 0933: The symptoms began 1 month ago. The severity is described as severe. has SVT ( atrial flutter) and VT documented. r ecommend: EP study with arrhythmia ablation with carto CT , and anesthesia at [facility] - do not stop any meds before the ablation Jose Ma MD pre-op faxed 06/10/14932 Fabby Ma MD pre-op faxed 06/10/1433:EP study with arrhythmia ablation with carto CT , and anesthesia at [facility] - do not stop any meds before the ablation Jose Ma MD pre-op faxed 06/10/1433:EP study with arrhythmia ablation with carto CT , and anesthesia at [facility] - do not stop any meds before the ablation Jose Ma MD pre-op faxed 06/10/1433 Fabby Ma MD follow up: H is updated medication list for this problem includes: Aspirin 81 Mg Tabs (Aspirin) ..... One tab. daily Losartan Potassium 25 Mg Tabs (Losartan potassium) ..... Take 1/2 tablet daily Coreg 6.25 Mg Tabs (Carvedilol) ..... One tab. twice daily Furosemide 40 Mg Tabs (Furosemide) ..... One tablet daily Spironolactone 25 Mg Tabs (Spironolactone) ..... One tab. daily Juwan Zavala MD follow up: H is updated medication list for this problem includes: Aspirin 81 Mg Tabs (Aspirin) ..... One tab. daily Coumadin Tabs (Warfarin sodium tabs) ..... 2mg managed by dr. carias office Coreg 6.25 Mg Tabs (Carvedilol) ..... One tab. twice daily Juwan Zavala MD follow up: H is updated medication list for this problem includes: Aspirin 81 Mg Tabs (Aspirin) ..... One tab. daily Losartan Potassium 25 Mg Tabs (Losartan potassium) ..... Take 1/2 tablet daily Coreg 6.25 Mg Tabs (Carvedilol) ..... One tab. twice daily Furosemide 40 Mg Tabs (Furosemide) ..... One tablet daily Spironolactone 25 Mg Tabs (Spironolactone) ..... One tab. daily Juwan Zavala MD hosp f/u: H is updated medication list for this problem includes: Aspirin 81 Mg Tabs (Aspirin) ..... One tab. daily Coumadin Tabs (Warfarin sodium tabs) ..... 2mg managed by dr. carias office Losartan Potassium Tabs (Losartan potassium tabs) ..... 12.5mg daily Coreg 6.25 Mg Tabs (Carvedilol) ..... One tab. twice daily Furosemide 40 Mg Tabs (Furosemide) ..... Daily Spironolactone 25 Mg Tabs (Spironolactone) ..... One tab. daily C ardiac Cath: Severe iliamna CAD involving the LAD which will need to be addressed. Intermediate CAD of the RCA and the first obtuse marginal. Severe pulmonary hypertension. Marked elevation of LVEDP. Elevated systemic hypertension. Diminished cardiac output. Elevated pulmonary arterial pressures. - [facility] (07/05/2013) C ardiac Cath Comments: Successful cutting balloon PTCA of the LAD with a 3.5 mm x 10 mm cutting balloon and stenting of the LAD with a 3.5 x 18 Integrity bare-metal stent in the setting of a non-STEMI presentation. - [facility] (07/05/2013) Juwan Zavala MD Date Name Complete Echo Cortisol PROBNP, N TERMINAL LIPID PANEL CBC (INCLUDES DIFF/P LT) COMPREHENSIVE METABO LIC PANEL, W/EGFR EKG EKG Complete Echo CT Chest without con trast HEPATIC FUNCTION SLOAN EL LIPID PANEL CT Chest with contra st TSH, free T4, total T3 LIPID PANEL COMPREHENSIVE METABO LIC PANEL, W/EGFR Complete Echo DLCO - 90434 FRC - 77717 FVC - 03780 CT Chest with contra st CT, Coronary Calcium Score T-4, FREE TSH, 3RD GENERATION HEPATIC FUNCTION SLOAN EL B TYPE NATRIURETIC P EPTIDE (BNP) MAGNESIUM BASIC METABOLIC PANE L W/EGFR B TYPE NATRIURETIC P EPTIDE (BNP) COMPREHENSIVE METABO LIC PANEL, W/EGFR Complete Echo RPM (remote patient monitoring) MAGNESIUM CBC (INCLUDES DIFF/P LT) HEMOGLOBIN A1c LIPID PANEL COMPREHENSIVE METABO LIC PANEL, W/EGFR LIPID PANEL CBC (INCLUDES DIFF/P LT) COMPREHENSIVE METABO LIC PANEL, W/EGFR RPM (remote patient monitoring) AICD Check Prothrombin Time w/I NR Prothrombin Time w/I NR TSH, free T4, total T3 HEMOGLOBIN A1c LIPID PANEL COMPREHENSIVE METABO LIC PANEL, W/EGFR Complete Echo LIPID PANEL B TYPE NATRIURETIC P EPTIDE (BNP) COMPREHENSIVE METABO LIC PANEL, W/EGFR IRON AND TOTAL IRON BINDING CAPACITY FERRITIN CBC (INCLUDES DIFF/P LT) Creatinine, Serum X-Ray, Chest - Routi ne CT Chest without con trast LIPID PANEL COMPREHENSIVE METABO LIC PANEL, W/EGFR T-4, FREE TSH, 3RD GENERATION HEPATIC FUNCTION SLOAN EL Complete Echo Ambulatory Oximetry DLCO - 30244 FRC - 12362 FVC - 03687 Thyroid Panel Hepatic Function Sloan (7) INR Strip INR Strip X-Ray, Chest - Routi ne T-4, FREE TSH, 3RD GENERATION HEPATIC FUNCTION SLOAN EL 6 minute walk test Ambulatory Oximetry DLCO - 51819 FRC - 92318 FVC - 02005 Complete Echo Stress Regadenoson INR Strip Stress Regadenoson Complete Echo INR Strip INR Strip INR Strip X-Ray, Chest - Routi ne DLCO - 27739 FRC - 40038 FVC - 08464 T-4, FREE TSH, 3RD GENERATION HEPATIC FUNCTION SLOAN EL MAGNESIUM HEPATIC FUNCTION SLOAN EL THYROID PANEL WITH T SH, 3RD GENERATION CBC (H/H, RBC, INDIC ES, WBC, PLT) COMPREHENSIVE METABO LIC PANEL W/EGFR LIPID PANEL X-Ray, Chest - Routi ne DLCO - 59751 FRC - 76784 FVC - 34736 Carotid Duplex Bilat eral STR - Adenosine Complete Echo STR - Nuclear THYROID PANEL PROTHROMBIN TIME WIT H INR THYROID PANEL Full PFT PROTHROMBIN TIME WIT H INR Complete Echo STR - Adenosine STR - Adenosine Full PFT Arterial Duplex Bi-L ower EX DLCO Order - 21655 FRC Order - 21348 FVC Order - [id number] Spirometry Holter Monitor 24 Hr Spirometry Spirometry INR Strip ABLATION w/ Anesthes ia AICD Implant - GC Complete Echo HISTORY OF PROCEDURES Procedure Date Procedure Name Provider Procedure Notes S tatus EKG Juwan Zavala MD completed Complex e/m visit ad d on Jose Ma MD completed EKG Jose doyle MD completed Complex e/m visit ad d on Jose Ma MD completed EKG Jose doyle MD completed Complex e/m visit ad d on Juwan Zavala MD completed Complex e/m visit ad d on Juwan Zavala MD completed EKG Juwan Zavala MD completed EKG Juwan Zavala MD completed EKG Juwan Zavala MD completed EKG Juwan Zavala MD completed EKG Juwan Zavala MD completed EKG Juwan Zavala MD completed Protime Jose doyle MD completed Protime Juwan Zavala MD completed EKG Juwan Zavala MD completed Protime Neri Franz MD completed Protime Neri Franz MD completed EKG Juwan Zavala MD completed EKG Juwan Zavala MD completed Protime Vishal Hernanedz RN completed Protime Juwan Zavala MD completed Protime Juwan Zavala MD completed Protime Juwan Zavala MD completed EKG Juwan Zavala MD completed Protime Jose doyle MD completed Protime Juwan Zavala MD completed Protime Jose doyle MD completed Protime Juwan Zavala MD completed EKG Juwan Zavala MD completed Protime Rachel Valle MD completed Protime Vishal Hernandez RN completed Protime Vishal Hernandez RN completed Protime Vishal Hernandez RN completed Protime John Salguero completed Protime Vishal Hernandez RN completed Protime Nurse .Triage completed Protime Vishal Hernandez RN completed Protime Andreas Cabrera MD complete d Protime Rachel Valle MD completed Protime Lex Man MD completed Protime Juwan Zavala MD completed Protime Lex Man MD completed Protime Nurse .Triage completed Protime Nurse .Triage completed Protime Rachel Valle MD completed Protime Rachel Valle MD completed Protime Juwan Zavala MD completed Protime Rachel Valle MD completed Protime Nurse .Triage completed Protime Neri Franz MD completed Protime Juwan Zavala MD completed Protime Nurse .Triage completed Protime Nurse .Triage completed Protime Austyn Barfield MD complete d Protime Nurse .Triage completed EKG Juwan Zavala MD completed Protime Juwan Zavala MD completed Protime Nurse .Triage completed Protime Nurse .Triage completed Protime Vishal Hernandez RN completed Protime Nurse .Triage completed Protime Juwan Zavala MD completed Protime Juwan Zavala MD completed Protime Neri Franz MD completed Protime Juwan Zavala MD completed Protime Juwan Zavala MD completed EKG Juwan Zavala MD completed Ugoime Juwan Zavala MD completed Protime Jose doyle MD completed FVC / MVV - 27670 Juwan dominguez MD completed BLOOD COUNT HEMOGLOBIN Juwan Zavala MD completed FRC - 22023 Juwan Zavala MD completed SpO2 w/o 6min walk/titration Juwan Zavala MD completed DLCO - 80888 Juwan Zavala MD completed EKG Juwan Zavala MD completed EKG Juwan Zavala MD completed Protpaula Valle MD completed Schedule ICD Check Juwan meredith MD In person ICD check, eval for any ventricular arrhytmias, we are reducing amio dosing completed EKG Juwan Zavala MD completed Protpaula Valle MD completed Protime Vishal Hernandez RN completed Georgette Valle MD completed Georgette Valle MD completed Protpaula Valle MD completed Protime Lex Man MD completed Protpaula Valle MD completed Protime Rachel Valle MD completed Protime Brian Richardson MD complet ed Protime Andreas Cabrera MD complete d Protpaula Valle MD completed Georgette Valle MD completed Protime Neri Franz MD completed Protime Brian Richardson MD complet ed Protpaula Baxter MD complet ed Protpaula Cabrera MD complete d Protpaula Valle MD completed Georgette Valle MD completed FVC / MVV with bronchodilator - 15846 Juwan Zavala MD completed BLOOD COUNT HEMOGLOBIN Juwan Zavala MD completed FRC - 72687 Juwan Zavala MD completed SpO2 w/o 6min walk/titration Juwan Zavala MD completed DLCO - 54993 Juwan Zavala MD completed Georgette Valle MD completed Georgette Valle MD completed Georgette Valle MD completed Georgette Barfield MD complete d Georgette Barfield MD complete d Georgette Zavala MD completed Georgette Cabrera MD complete d Georgette Zavala MD completed Georgette Valle MD completed Georgette Barfield MD complete d Georgette Baxter MD complet ed Protpaula doyle MD completed ICM Interrogation, Remote (Prof) Juwan Zavala MD INTERROGATION EVAL REMOTE </30 D CV MNTR SYS completed ICM Interrogation, Remote (Tech) Juwan Zavala MD INTERROGATION EVAL REMOTE </30 D TECH REVIEW completed Georgette Zavala MD completed Georgette Cabrera MD complete d Georgette Richardson MD complet ed FVC / MVV with bronchodilator and 6min walk/titration Juwan Zavala MD completed BLOOD COUNT HEMOGLOBIN Juwan Zavala MD completed FRC - [id number] Juwan Zavala MD completed DLCO - [id number] Juwan Zavala MD completed ICM Interrogation, Remote (Prof) Juwan Zavala MD INTERROGATION EVAL REMOTE </30 D CV MNTR SYS completed ICM Interrogation, Remote (Tech) Juwan Zavala MD INTERROGATION EVAL REMOTE </30 D TECH REVIEW completed Georgette Valle MD completed Regadenoson, 4 units Juwan galloway MD completed Cardiolite, 2 units Juwan dykes MD completed SPECT Images Juwan Zavala MD completed Stress EKG Isiah Baxter MD complet ed ICM Interrogation, Remote (Prof) Juwan Zavala MD INTERROGATION EVAL REMOTE </30 D CV MNTR SYS completed ICM Interrogation, Remote (Tech) Juwan Zavala MD INTERROGATION EVAL REMOTE </30 D TECH REVIEW completed Georgette Zavala MD completed MATTHEW Zavala MD completed Georgette Zavala MD completed Georgette Barfield MD complete d Georgette Zavala MD completed Georgette Zavala MD completed Georgette Baxter MD complet ed Georgette Zavala MD completed MATTHEW Zavala MD completed ICM Interrogation, Remote (Prof) Juwan Zavala MD INTERROGATION EVAL REMOTE </30 D CV MNTR SYS completed AICD Interrogation, Remote (Tech) Juwan Zavala MD INTERROGATION REMOTE </90 D FIRE 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 REVIEW completed AICD Interrogation, Remote (Prof) Juwan Zavala MD INTERROGATION EVAL REMOTE </90 D 1/2/> LD CVDFB completed Georgette Zavala MD completed ICM Interrogation, Remote (Prof) Juwan Zavala MD INTERROGATION EVAL REMOTE </30 D CV MNTR SYS completed ICM Interrogation, Remote (Tech) Juwan Zavala MD INTERROGATION EVAL REMOTE </30 D TECH REVIEW completed Georgette doyle MD completed Georgette Richardson MD complet ed ICM Interrogation, Remote (Prof) Juwan Zavala MD INTERROGATION EVAL REMOTE </30 D CV MNTR SYS completed ICM Interrogation, Remote (Tech) Juwan Zavala MD INTERROGATION EVAL REMOTE </30 D TECH REVIEW completed Protpaula Valle MD completed Protpaula Valle MD completed Protpaula Baxter MD complet ed Protpaula Man MD completed Georgette Man MD completed Protime Nurse .Triage completed Georgette Baxter MD complet ed Protpaula Zavala MD completed Protpaula Franz MD completed Protime eLx Man MD completed Protpaula Valle MD completed AICD Interrogation, Remote (Tech) Juwan Zavala MD INTERROGATION REMOTE </90 D FIRE 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 REPAIRER REVIEW completed AICD Interrogation, Remote (Prof) Juwan Zavala MD INTERROGATION EVAL REMOTE </90 D 1/2/> LD CVDFB completed Protime Austyn Barfield MD complete d MATTHEW Zavala MD completed Protime Lex Man MD completed Ugoime Jose doyle MD completed Georgette Zavala MD completed Georgette Zavala MD completed Georgette Zavala MD completed Georgette Zavala MD completed Georgette Zavala MD completed Georgette Zavala MD completed Georgette Zavala MD completed Georgette Zavala MD completed Georgette Zavala MD completed AICD Interrogation, Remote (Tech) Juwan Zavala MD INTERROGATION REMOTE </90 D FIRE 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 REPAIRER REVIEW completed AICD Interrogation, Remote (Prof) Juwan Zavala MD INTERROGATION EVAL REMOTE </90 D 1/2/> LD CVDFB completed Georgette Zavala MD completed Georgette Zavala MD completed Georgette Zavala MD completed Georgette Zavala MD completed Georgette Zavala MD completed Georgette Zavala MD completed Georgette Zavala MD completed Georgette Zavala MD completed Georgette Zavala MD completed Georgette Zavala MD completed Georgette Zavala MD completed ICM Interrogation, Remote (Prof) Juwan Zavala MD INTERROGATION EVAL REMOTE </30 D CV MNTR SYS completed ICM Interrogation, Remote (Tech) Juwan Zavala MD INTERROGATION EVAL REMOTE </30 D TECH REVIEW completed Georgette Zavala MD completed Georgette Zavala MD completed ICM Interrogation, Remote (Prof) Juwan Zavala MD INTERROGATION EVAL REMOTE </30 D CV MNTR SYS completed AICD Interrogation, Remote (Tech) Juwan Zavala MD INTERROGATION REMOTE </90 D FIRE 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 REPAIRER REVIEW completed AICD Interrogation, Remote (Prof) Juwan Zavala MD INTERROGATION EVAL REMOTE </90 D 1/2/> LD CVDFB completed Georgette Zavala MD completed Georgette Zavala MD completed Georgette Zavala MD completed Georgette Zavala MD completed Georgette Zavala MD completed Georgette Zavala MD completed ICM Interrogation, Remote (Prof) Juwan Zavala MD INTERROGATION EVAL REMOTE </30 D CV MNTR SYS completed ICM Interrogation, Remote (Tech) Juwan Zavala MD INTERROGATION EVAL REMOTE </30 D TECH REVIEW completed Georgette Zavala MD completed EKG Juwan Zavala MD completed SNOMED-CT: [id number] Current Medications Documented Juwan Zavala MD completed Georgette Zavala MD completed ICM Interrogation, Remote (Prof) Juwan Zavala MD INTERROGATION EVAL REMOTE </30 D CV MNTR SYS completed ICM Interrogation, Remote (Tech) Juwan Zavala MD INTERROGATION EVAL REMOTE </30 D TECH REVIEW completed Georgette Zavala MD completed ICM Interrogation, Remote (Prof) Juwan Zavala MD INTERROGATION EVAL REMOTE </30 D CV MNTR SYS completed AICD Interrogation, Remote (Tech) Juwan Zavala MD INTERROGATION REMOTE </90 D FIRE 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 REPAIRER REVIEW completed AICD Interrogation, Remote (Prof) Juwan Zavala MD INTERROGATION EVAL REMOTE </90 D 1/2/> LD CVDFB completed Georgette Zavala MD completed Georgette Zavala MD completed ICM Interrogation, Remote (Prof) Juwan Zavala MD INTERROGATION EVAL REMOTE </30 D CV MNTR SYS completed ICM Interrogation, Remote (Tech) Juwan Zavala MD INTERROGATION EVAL REMOTE </30 D TECH REVIEW completed Georgette Zavala MD completed EKG Juwan Zavala MD completed ICM Interrogation, Remote (Prof) Juwan Zavala MD INTERROGATION EVAL REMOTE </30 D CV MNTR SYS completed ICM Interrogation, Remote (Tech) Juwan Zavala MD INTERROGATION EVAL REMOTE </30 D TECH REVIEW completed Georgette Zavala MD completed Georgette Zavala MD completed ICM Interrogation, Remote (Prof) Juwan Zavala MD INTERROGATION EVAL REMOTE </30 D CV MNTR SYS completed AICD Interrogation, Remote (Tech) Juwan Zavala MD INTERROGATION REMOTE </90 D FIRE 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 REPAIRER REVIEW completed AICD Interrogation, Remote (Prof) Juwan Zavala MD INTERROGATION EVAL REMOTE </90 D 1/2/> LD CVDFB completed Protime Juwan Zavala MD completed INR Strip Juwan Zavala MD completed Protime Juwan Zavala MD completed ICM Interrogation, Remote (Prof) Juwan Zavala MD INTERROGATION EVAL REMOTE </30 D CV MNTR SYS completed ICM Interrogation, Remote (Tech) Juwan Zavala MD INTERROGATION EVAL REMOTE </30 D TECH REVIEW completed EKG Juwan Zavala MD completed SNOMED-CT: [id number] Current Medications Documented Juwan Zavala MD completed Protime Juwan Zavala MD completed ICM Interrogation, Remote (Prof) Juwan Zavala MD INTERROGATION EVAL REMOTE </30 D CV MNTR SYS completed ICM Interrogation, Remote (Tech) Juwan Zavala MD INTERROGATION EVAL REMOTE </30 D TECH REVIEW completed ICM Interrogation, Remote (Prof) Juwan Zavala MD INTERROGATION EVAL REMOTE </30 D CV MNTR SYS completed AICD Interrogation, Remote (Tech) Juwan Zavala MD INTERROGATION REMOTE </90 D FIRE 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 REPAIRER REVIEW completed AICD Interrogation, Remote (Prof) Juwan Zavala MD INTERROGATION EVAL REMOTE </90 D 1/2/> LD CVDFB completed ICM Interrogation, Remote (Prof) Juwan Zavala MD INTERROGATION EVAL REMOTE </30 D CV MNTR SYS completed ICM Interrogation, Remote (Tech) Juwan Zavala MD INTERROGATION EVAL REMOTE </30 D TECH REVIEW completed ICM Interrogation, Remote (Prof) Juwan Zavala MD INTERROGATION EVAL REMOTE </30 D CV MNTR SYS completed ICM Interrogation, Remote (Tech) Juwan Zavala MD INTERROGATION EVAL REMOTE </30 D TECH REVIEW completed ICM Interrogation, Remote (Prof) Juwan Zavala MD INTERROGATION EVAL REMOTE </30 D CV MNTR SYS completed AICD Interrogation, Remote (Tech) Juwan Zavala MD INTERROGATION REMOTE </90 D FIRE 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 REPAIRER REVIEW completed AICD Interrogation, Remote (Prof) Juwan Zavala MD INTERROGATION EVAL REMOTE </90 D 1/2/> LD CVDFB completed ICM Interrogation, Remote (Prof) Juwan Zavala MD INTERROGATION EVAL REMOTE </30 D CV MNTR SYS completed ICM Interrogation, Remote (Tech) Juwan Zavala MD INTERROGATION EVAL REMOTE </30 D TECH REVIEW completed ICM Interrogation, Remote (Prof) Juwan Zavala MD INTERROGATION EVAL REMOTE </30 D CV MNTR SYS completed ICM Interrogation, Remote (Tech) Juwan Zavala MD INTERROGATION EVAL REMOTE </30 D TECH REVIEW completed ICM Interrogation, Remote (Prof) Juwan Zavala MD INTERROGATION EVAL REMOTE </30 D CV MNTR SYS completed AICD Interrogation, Remote (Tech) Juwan Zavala MD INTERROGATION REMOTE </90 D FIRE 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 REPAIRER REVIEW completed AICD Interrogation, Remote (Prof) Juwan Zavala MD INTERROGATION EVAL REMOTE </90 D 1/2/> LD CVDFB completed ICM Interrogation, Remote (Prof) Juwan Zavala MD INTERROGATION EVAL REMOTE </30 D CV MNTR SYS completed ICM Interrogation, Remote (Tech) Juwan Zavala MD INTERROGATION EVAL REMOTE </30 D TECH REVIEW completed ICM Interrogation, Remote (Prof) Juwan Zavala MD INTERROGATION EVAL REMOTE </30 D CV MNTR SYS completed ICM Interrogation, Remote (Tech) Juwan Zavala MD INTERROGATION EVAL REMOTE </30 D TECH REVIEW completed Stress EKG Neri Franz MD completed Regadenoson, 4 units Juwan galloway MD completed Cardiolite, 2 units Juwan dykes MD completed SPECT Images Juwan Zavala MD completed SNOMED-CT: [id number] Physical Exam, Performed: Pulse Exam of Foot Juwan Zavala MD completed Protime Juwan Zavala MD completed EKG Juwan Zavala MD completed SNOMED-CT: [id number] Current Medications Documented Juwan Zavala MD completed ICM Interrogation, Remote (Prof) Juwan Zavala MD INTERROGATION EVAL REMOTE </30 D CV MNTR SYS completed AICD Interrogation, Remote (Tech) Juwan Zavala MD INTERROGATION REMOTE </90 D FIRE 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 REPAIRER REVIEW completed AICD Interrogation, Remote (Prof) Juwan Zavala MD INTERROGATION EVAL REMOTE </90 D 1/2/> LD CVDFB completed ICM Interrogation, Remote (Prof) Juwan Zavala MD INTERROGATION EVAL REMOTE </30 D CV MNTR SYS completed ICM Interrogation, Remote (Tech) Juwan Zavala MD INTERROGATION EVAL REMOTE </30 D TECH REVIEW completed ICM Interrogation, Remote (Prof) Juwan Zavala MD INTERROGATION EVAL REMOTE </30 D CV MNTR SYS completed ICM Interrogation, Remote (Tech) Juwan Zavala MD INTERROGATION EVAL REMOTE </30 D TECH REVIEW completed ICM Interrogation, Remote (Prof) Juwan Zavala MD INTERROGATION EVAL REMOTE </30 D CV MNTR SYS completed AICD Interrogation, Remote (Tech) Juwan Zavala MD INTERROGATION REMOTE </90 D FIRE 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 REPAIRER REVIEW completed AICD Interrogation, Remote (Prof) Juwan Zavala MD INTERROGATION EVAL REMOTE </90 D 1/2/> LD CVDFB completed EKG Juwan Zavala MD completed SNOMED-CT: [id number] Current Medications Documented Juwan Zavala MD completed ICM Interrogation, Remote (Prof) Juwan Zavala MD INTERROGATION EVAL REMOTE </30 D CV MNTR SYS completed ICM Interrogation, Remote (Tech) Juwan Zavala MD INTERROGATION EVAL REMOTE </30 D TECH REVIEW completed EKG Juwan Zavala MD completed EKG Juwan Zavala MD completed ICM Interrogation, Remote (Prof) Juwan Zavala MD INTERROGATION EVAL REMOTE </30 D CV MNTR SYS completed ICM Interrogation, Remote (Tech) Juwan Zavala MD INTERROGATION EVAL REMOTE </30 D TECH REVIEW completed ICM Interrogation, Remote (Prof) Juwan Zavala MD INTERROGATION EVAL REMOTE </30 D CV MNTR SYS completed AICD Interrogation, Remote (Tech) Juwan Zavala MD INTERROGATION REMOTE </90 D FIRE 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 REPAIRER REVIEW completed AICD Interrogation, Remote (Prof) Juwan Zavala MD INTERROGATION EVAL REMOTE </90 D 1/2/> LD CVDFB completed ICM Interrogation, Remote (Prof) Juwan Zavala MD INTERROGATION EVAL REMOTE </30 D CV MNTR SYS completed ICM Interrogation, Remote (Tech) Juwan Zavala MD INTERROGATION EVAL REMOTE </30 D TECH REVIEW completed ICM Interrogation, Remote (Prof) Juwan Zavala MD INTERROGATION EVAL REMOTE </30 D CV MNTR SYS completed ICM Interrogation, Remote (Tech) Juwan Zvaala MD INTERROGATION EVAL REMOTE </30 D TECH REVIEW completed EKG Juwan Zavala MD completed Schedule Followup ulius Cat avila MD fu with Dr. Zavala in 3 months completed ePrescribe - Check t his box if eRx is used Jose Ma MD completed EKG Jose doyle MD completed BLOOD COUNT HEMOGLOBIN Euniceus Joel rock MD completed Schedule Followup ulius Cat avila MD Please schedule a follow-up appointment with me in 3 months. completed EKG Jose doyle MD completed Schedule Followup ulius Cat avila MD fu with in 1 month. I NR weekly for 1 month completed EKG Jose doyle MD completed EKG Jose doyle MD completed Schedule Followup ulius Cat avila MD in [address] Zavala only completed EKG ulius Maroln doyle MD completed ePrescribe - Check t his box if eRx is used Jose Ma MD completed Schedule Followup ulius Cat avila MD fu with Dr Ma in 1 months f u with Dr Zavala in3 months completed Schedule Followup ulius Cat avila MD fu in 1 month completed EKG Jose doyle MD completed EKG Jose doyle MD completed EKG Juwan Zavala MD completed EKG Jwuan Zavala MD completed EKG Juwan Zavala MD completed
--- OUTSIDE RECORDS SUMMARY | 2024-12-24 14:29 | XMS_ITS | Referral Summary ---
Author Organization [facility] Address [address] [place] [address] Care Team Providers Care Erector Operator Name Role Phone Ambrose Reyes MD Unavailable Marcell Mckay MD Unavailable [phone] Ines Carpenter MD Unavailable Ines Carpenter MD Primary Care Provider Encounters Date Type Department Care Team Description 11/16/2024 1:30 PM CDT Lab [address] [address] 11/04/2024 Telephone [facility] Oncology [address] [facility] [address] [place] [address] Olayinka Vega CMA 11/04/2024 Documentation [facility] Oncology [facility] [address] [address] Darcy Sifuentes, ALLEN 11/04/2024 Telephone [facility] Oncology [facility]0 [facility] Floor [address] [place] [address] Darcy Sifuentes RN 11/03/2024 Orders Only [facility] Otolaryngology Formerly [facility] Advanced Medicine 11th [place] [address] [place] [address] Gris Davis Au.D. Dizziness (Primary Dx) 11/03/2024 Telephone [facility] Otolaryngology [address] [place] [address] Advanced Medicine 11th [place] [address] [place] [address] Gris Davis Au.D. 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); Melanoma of forearm, right (HCC) 11/02/2024 11:15 AM CDT Lab [facility] Oncology Lab [facility]0 [facility] 6 [place] [address] 11/02/2024 1:40 PM CDT Office Visit [facility] Oncology [facility]0 [facility] 6 [place] [address] Brian Min MD 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) (Primary Dx); Melanoma of forearm, right (HCC) 11/02/2024 10:10 AM CDT - 11/02/2024 11:59 PM CDT Hospital Encounter [facility] [address] [place] [id number] 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); Melanoma of forearm, right (HCC) Discharge Disposition: Discharge to home or self care from Last 3 Months Allergies Active Allergy Reactions Criticality Noted Date [...] (02/25/2019): Added automatically from request for surgery [id number] Melanoma of forearm, right 01/15/2019 Encounter for preprocedural cardiovascular exami nation 2018 Neck pain 07/21/2018 Atrial fibrillation 07/21/2018 Cardiomyopathy 07/21/2018 Degenerative disc disease, cervical 07/21/2018 Cervical stenosis of spinal canal 07/21/2018 Anxiety disorder, unspecified 04/18/2016 alf (current) use of anticoagulants 2015 Cardiomyopathy 05/09/2015 Peripheral vascular disease, unspecified 015 Peripheral vascular disease, unspecified 015 Unspecified atrial fibrillation 06/28/2014 Unspecified atrial flutter 06/28/2014 Acute stress reaction 06/07/2014 Acute stress reaction 06/07/2014 Coronary atherosclerosis 07/24/2013 CKD (chronic kidney disease) 07/17/2013 COPD (chronic obstructive pulmonary disease) Coronary atherosclerosis of [place] coronary francesca ry 07/17/2013 Encounter for other specified cardiac device in situ 07/17/2013 Overview (02/25/2019): Overview: LV (left ventricular) mural thrombus 07/17/2013 CHF (congestive heart failure) 07/16/2013 Ischemic cardiomyopathy 07/16/2013 Benign essential hypertension 08/05/1961 Immunizations Immunization Administration Dates Next Due Influenza, Quadrivalent, Hig h Dose, Preservative Free, Intrr 04/07/2020 Influenza, Quadrivalent, Spl it, Preservative Free, Intramuscular 06/05/2019,05/14/2018,05/21/2017,04/18 Influenza, Unspecified 04/22/2023,2021,05/11/2021,04/07 Pfizer SARS-CoV-2 Monovalent Vaccination (12+ Yrs) PURPLE 08/08/2021,11/25/2020,10/14/2020 Social History Tobacco Use Types Packs/Day Years Used Date Smoking Tobacco: Former Cigarettes 0.5 31.4 S tarted: 1993 Smokeless Tobacco: Never Tobacco Cessation:Counseling Given: Yes Alcohol Use Standard Drinks/Week Comments Yes 4 (1 standard drink = 0.6 oz pur e alcohol) Sex and Gender Information Value Date Recorded Sex Assigned at Not on file Legal Sex 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 Gender Identity Not on file Sexual Orientation Not on file Last Filed Vital Signs Vital Sign Reading [...] 02/03/2024 12:55 PM CDT Plan of Treatment Not on file Medical Devices Implanted Type Area Industrial Green Systems Designer Device Identifier Shelf Expiration Date Model / Serial / Lot Icd ICD Left: Chest [place] Scientific Procedures Procedure Name Priority Date/Time Associated [...] Ma MD LAB BLOOD ORDERABLES Final Result [facility] [address] Department [place] [address] * Differential, auto (11/16/2024 1:35 PM CDT) Neutrophil abs 4.43 1.50 - 6.50 K/cumm Imm gran abs 0.02 0.00 - 0.10 K/cumm [facility] Lymphocyte abs 1.31 0.80 - 3.30 K/cumm [facility] Monocyte abs 0.40 0.20 - 0.80 K/cumm [facility] Eosinophil abs 0.25 0.00 - 0.50 K/cumm [facility] Basophil abs 0.07 0.00 - 0.10 K/cumm [facility] Neutrophil pct 68.3 % [facility] Comment: Interpretive Data Percent cell count reference ranges are not reported, since discordance with absolute values may lead to misinterpretation of CBC data. Current Interpretive Data was last revised on 2017. Imm gran pct 0.3 % [facility] Comment: Interpretive Data Percent cell count reference ranges are not reported, since discordance with absolute values may lead to misinterpretation of CBC data. Current Interpretive Data was last revised on 2017. Lymphocyte pct 20.2 % [facility] Comment: Interpretive Data Percent cell count reference ranges are not reported, since discordance with absolute values may lead to misinterpretation of CBC data. Current Interpretive Data was last revised on 2017. Monocyte pct 6.2 % [facility] Comment: Interpretive Data Percent cell count reference ranges are not reported, since discordance with absolute values may lead to misinterpretation of CBC data. Current Interpretive Data was last revised on 2017. Eosinophil pct 3.9 % [facility] Comment: Interpretive Data Percent cell count reference ranges are not reported, since discordance with absolute values may lead to misinterpretation of CBC data. Current Interpretive Data was last revised on 2017. Basophil pct 1.1 % [facility] Comment: Interpretive Data Percent cell count reference ranges are not reported, since discordance with absolute values may lead to misinterpretation of CBC data. Current Interpretive Data was last revised on 2017. Blood 11/16/2024 1:35 PM CDT 11/16/2024 2:57 PM CDT us Jose Ma MD LAB BLOOD ORDERABLES Final Result [facility] [address] Department [place] [address] * (ABNORMAL) Pro B-type natriuretic peptide (11/16/2024 [...] as advanced age. - References: 1. Trina JL et.al. Eur Heart J. 2006:27:330-337. 2. Yaya RW, Dominic DUCKWORTH. J. AM Mac Cardiol: Cardiovasc Imag. 2009;2: 216- 225. Interpretive Data Last Revised Date: 2018. Blood 11/16/2024 1:35 PM CDT 11/16/2024 2:57 PM CDT Jose Ma MD LAB BLOOD ORDERABLES Final Result Performing Organization Address [facility] Co de Phone Number [facility] [address] [facility] [employer] [address] * (ABNORMAL) CBC with auto differential (11/16/2024 1:35 PM CDT) WBC 6.48 3.80 - 9.90 K/cumm Hgb 13.9 13.0 - 17.5 g/dL [facility] Hct 43.3 38.9 - 50.3 % [facility] Plt 242 150 - 400 K/cumm [facility] MPV 9.9 9.1 - 12.3 fL [facility] RBC 4.72 4.30 - 5.80 M/cumm [facility] MCV 91.7 81.3 - 96.4 fL [facility] MCH 29.4 27.1 - 33.3 pg [facility] MCHC 32.1(L) 32.3 - 35.7 g/dL [facility] RDW CV 13.3 11.1 - 14.9 % [facility] RDW SD 45.1 35.7 - 48.1 fL [facility] NRBC abs 0.00 0.00 - 0.01 K/cumm [facility] Blood 11/16/2024 1:35 PM CDT 11/16/2024 2:57 PM CDT Jose Ma MD LAB BLOOD ORDERABLES Final Result Performing Organization Address [facility] Co de Phone Number [place] [address] [employer] [address] * Cortisol (11/16/2024 1:35 PM CDT) Cortisol 8.5 4.8 - 19.5 mcg/dl Comment: Interpretive Data Normal Range: 4.8 - 19.5 mcg/dL; Evening: Half of morning value. This analyte undergoes marked diurnal variation. Ranges indicated apply to morning specimens. Current interpretive data was last revised 2018. Blood 11/16/2024 1:35 PM CDT 11/16/2024 2:57 PM CDT Jose Ma MD LAB BLOOD ORDERABLES Final Result [address] Department [place] [address] * (ABNORMAL) Lipid panel (11/16/2024 1:35 PM [...] Jose Luis Fitzpatrick et al. NOEL Cardiol. 2020 December 03;5(5):540-548. doi: [email or web address] Current Interpretive Data was last revised on 2024. Non-HDL Cholesterol 186 mg/dL [facility] Comment: Interpretive Data Ages [...] last revised on 2018. Chol/HDL ratio 4 [facility] Blood 11/16/2024 1:35 PM CDT 11/16/2024 2:57 PM CDT us Jose Ma MD LAB BLOOD ORDERABLES Final Result [address] Department [place] [address] * (ABNORMAL) Comprehensive metabolic panel (11/16/2024 1:35 [...] classification and Diagnosis of Diabetes Diabetes Care 202; 46: S19-S40. Current interpretive data was last [...] LAB BLOOD ORDERABLES Final Result [address] Department [place] [address] * (ABNORMAL) eGFR (11/02/2024 11:47 AM CDT) Pathologist [facility] eGFR 55(L) >=60 mL/min/1. 73 m2 Comment: [...] CDT 11/02/2024 11:57 AM CDT Sadiq Sim OPTICAL ADVISOR LAB BLOOD ORDERABLES Cami l Result [facility] Department [place] [address] * Differential, auto (11/02/2024 11:47 AM CDT) Pathologist [facility] Neutrophil abs 5.9 1.5 - 6.5 K/cumm Comment:Testing performed by : [facility], [address] [place] [phone] Lymphocyte abs 1.3 0.8 - 3.3 K/cumm [facility] Comment:Testing performed by : [facility], [address] [place] [phone] Monocyte abs 0.5 0.2 - 0.8 K/cumm [facility] Comment:Testing performed by : [facility], [address] [place] [phone] Eosinophil abs 0.2 0.0 - 0.5 K/cumm [facility] Comment:Testing performed by : [facility], [address] [place] [phone] Basophil abs 0.1 0.0 - 0.1 K/cumm [facility] Comment:Testing performed by : [facility], [address] [place] [phone] Neutrophil pct 73.6 % [facility] Comment: Interpretive Data Percent cell count reference ranges are not reported, since discordance with absolute values may lead to misinterpretation of CBC data. Current Interpretive Data was last revised on 2017. Testing performed by: [facility], [address] [place] [phone] Lymphocyte pct 16.8 % [facility] Comment: Interpretive Data Percent cell count reference ranges are not reported, since discordance with absolute values may lead to misinterpretation of CBC data. Current Interpretive Data was last revised on 2017. Testing performed by: [facility], [address] [place] [phone] Monocyte pct 6.1 % [facility] Comment: Interpretive Data Percent cell count reference ranges are not reported, since discordance with absolute values may lead to misinterpretation of CBC data. Current Interpretive Data was last revised on 2017. Testing performed by: [facility], [address] [place] [phone] Eosinophil pct 2.2 % [facility] Comment: Interpretive Data Percent cell count reference ranges are not reported, since discordance with absolute values may lead to misinterpretation of CBC data. Current Interpretive Data was last revised on 2017. Testing performed by: [facility], [address] [place] [phone] Basophil pct 1.2 % [facility] Comment: Interpretive Data Percent cell count reference ranges are not reported, since discordance with absolute values may lead to misinterpretation of CBC data. Current Interpretive Data was last revised on 2017. Testing performed by: [facility], [address] [place] [phone] Blood 11/02/2024 11:4 7 AM CDT 11/02/2024 11:53 AM CDT Sadiq Smi NP LAB BLOOD ORDERABLES Cami l Result Performing Organization Address City/[facility] Co de Phone Number [facility] Department [place] [address] * Thyroid Function [place] (11/02/2024 11:47 AM CDT) Pathologist [facility] TSH 2.85 0.30 - 4.20 mcIUnit/mL Blood 11/02/2024 11:4 7 AM CDT 11/02/2024 11:57 AM CDT Sadiq Sim OPTICAL ADVISOR LAB BLOOD ORDERABLES Cami l Result Performing Organization Address [facility] de Phone Number [facility] [place] [address] * CBC with auto differential (11/02/2024 11:47 AM CDT) WBC 8.0 3.8 - 9.9 K/cumm Comment:Testing performed by : [facility], [address] [place] [phone] Hgb 14.3 13.0 - 17.5 g/dL [facility] Comment:Testing performed by : [facility], [address] [place] [phone] Hct 43.8 38.9 - 50.3 % [facility] Comment:Testing performed by : [facility], [address] [place] [address] Plt 295 150 - 400 K/cumm [facility] Comment:Testing performed by : [facility], [address] [place] [address] MPV 7.8 6.8 - 10.4 fL [facility] Comment:Testing performed by : [facility], [address] [place] [address] RBC 4.89 4.30 - 5.80 M/cumm [facility] Comment:Testing performed by : [facility], [address] [place] [address] MCV 89.6 81.3 - 96.4 fL [facility] Comment:Testing performed by : [facility], [address] [place] [address] MCH 29.3 27.1 - 33.3 pg [facility] Comment:Testing performed by : [facility], [address] [place] [address] MCHC 32.7 32.3 - 35.7 g/dL [facility] Comment:Testing performed by : [facility], [address] [place] [address] RDW CV 14.5 11.1 - 14.9 % [facility] Comment:Testing performed by : [facility], [address] [place] [address] NRBC abs 0.00 0.00 - 0.01 K/cumm [facility] Comment:Testing performed by : [facility], [address] [place] [address] Blood 11/02/2024 11:4 7 AM CDT 11/02/2024 11:53 AM CDT us Sadiq Sim OPTICAL ADVISOR LAB BLOOD ORDERABLES Cami l Result [facility] Department [place] [address] * (ABNORMAL) Comprehensive metabolic panel (11/02/2024 11:47 AM CDT) Sodium 137 135 - 145 mmol/L Potassium, pl 5.3(H) 3.3 - 4.9 mmol/L [facility] Comment:Hemolyzed; Potassium value may be falsely elevated by as much as 0.6-1.0 mmol/L. Suggest redraw and reanalysis. Chloride 98 97 - 110 mmol/L [facility] CO2 28 22 - 32 mmol/L [facility] Anion gap 11 2 - 15 mmol/L [facility] BUN 28(H) 6 - 25 mg/dL [facility] Creatinine 1.33(H) 0.80 - 1.30 mg/dL [facility] Glucose 93 70 - 199 mg/dL [facility] Comment: Interpretive Data Fasting glucose >/= 126 [...] 2022. Calcium 9.5 8.5 - 10.3 mg/dL [facility] Bilirubin, total 1.2 0.1 - 1.2 mg/dL [facility] Protein, pl 8.0 6.5 - 8.5 g/dL [facility] Albumin 4.2 3.5 - 5.0 g/dL [facility] Alk phos 35(L) 40 - 130 Units/L [facility] ALT 8 7 - 55 Units/L [facility] AST 26 10 - 50 Units/L [facility] Comment:Hemolyzed; result ma y be falsely elevated Blood 11/02/2024 11:4 7 AM CDT 11/02/2024 11:57 AM CDT us Sadiq Sim NP LAB BLOOD ORDERABLES Cami loving Result [facility] Department [place] [address] * CT Chest Abdomen Pelvis W Contrast [...] by: Jose Luis Bernard M.D. Sadiq Sim OPTICAL ADVISOR IMG CT PROCEDURES Final R esult * (ABNORMAL) POCT creatinine (11/02/2024 10:41 AM CDT) Creatinine POC 1.5(H) 0.8 - 1.3 mg/dL Blood 11/02/2024 10:4 1 AM CDT 11/02/2024 10:41 AM CDT Brian Min MD LAB POCT ORDERABLES - DEVICE F inal Result [facility] Department [place] [address] from Last 3 Months Insurance MEDICARE ADVANTAGE Advance Directives For more information, please contact: [phone] * Full Code (Latest Code Status on File) Date Activated Date Inactivated Comments 03/22/2019 2:32 AM 03/25/2019 7:04 PM * Full Code Date Activated Date Inactivated Comments 07/20/2018 8:18 PM 07/23/2018 4:42 PM Care Teams Erector Operator Relationship Specialty Start Date End Date Ines Carpenter MD [address] [facility] [address] DIV [place] [address] PCP - General Internal Medicine 06/04/22 Ambrose Reyes MD Referring Physician Neurosurgery 07/23/18 Marcell Mckay MD [address] [place] [address] Consulting Physician Plastic Surgery 03/11/19 Ines Carpenter MD [address] [facility] [address] DIV [place] [address] Consulting Physician Internal Medicine 06/04/22
--- OUTSIDE RECORDS SUMMARY | 2024-12-24 14:29 | XMS_ITS | Clinical Summary ---
Author Organization [facility] Address [address] [place] [address] Care Team Providers Care Degreasing Solution Reclaimer Name Role Phone Madi Garcia MD Primary Care Provider [phone] Source Comments [facility],non-owned Affiliates and Associated Physician Practices is amultiple site organization consisting of ambulatory clinics and hospital sitesin [place], [place], [place] and [place]. This disclosure is being madepursuant to the Care Everywhere program and may not contain all information available regarding this patient. Last updated 18.[facility] Allergies Active Allergy Reactions Criticality Noted Date Comments Codeine 07/16/2013 'Weird dreams' Medications * Be aware that medications may not be up to date on this document. Alwaysverify current medications with the patient. losartan (COZAAR) 25 MG tabletIndications:C HF (congestive heart failure) (HCC),Ischemic cardiomyopathy Take 12.5 mg by mouth once daily. Active ALBUTEROL INIndications:CHF (congestive heart failure) (HCC),Ischemic cardiomyopathy Inhale by mouth. Active spironolactone (ALDACTONE) 25 MG tabletIndications:C HF (congestive heart failure) (HCC),Ischemic cardiomyopathy Take 25 mg by mouth once daily. Active aspirin 81 MG tabletIndications:C HF (congestive heart failure) (HCC),Ischemic cardiomyopathy Take 81 mg by mouth once daily. Active carvedilol (COREG) 6.25 MG tabletIndications:C HF (congestive heart failure) (HCC),Ischemic cardiomyopathy Take 6.25 mg by mouth 2 times daily with morning and evening meal. Active hydrocodone-acetami nophen (NORCO) 5-325 MG tabletIndications:C HF (congestive heart failure) (HCC),Ischemic cardiomyopathy Take 1 Tab by mouth every 4 hours as needed. Active furosemide (LASIX) 40 MG tabletIndications:C HF (congestive heart failure) (HCC),Ischemic cardiomyopathy Take 40 mg by mouth once daily. Active atorvastatin (LIPITOR) 40 MG tabletIndications:C HF (congestive heart failure) (HCC),Ischemic cardiomyopathy Take 40 mg by mouth at bedtime. Active clopidogrel (PLAVIX) 75 MG tabletIndications:C HF (congestive heart failure) (HCC),Ischemic cardiomyopathy Take 75 mg by mouth once daily. Active Active Problems Problem Noted Date Diagnosed Date Coronary atherosclerosis of [place] coronary francesca ry 07/17/2013 Encounter for other specified cardiac device in situ 07/17/2013 Overview (05/05/2015): COPD (chronic obstructive pulmonary disease) LV (left ventricular) mural thrombus 07/17/2013 CKD (chronic kidney disease) 07/17/2013 CHF (congestive heart failure) 07/16/2013 Ischemic cardiomyopathy 07/16/2013 Social History Tobacco Use Types Packs/Day Years Used Date Smoking Tobacco: Former Alcohol Use Standard Drinks/Week Comments Not Asked 0 (1 standard drink = 0.6 oz pur e alcohol) Sex and Gender Information Value Date Recorded Sex Assigned at Not on file Legal Sex Male 1:45 PM 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 Gender Identity Not on file Sexual Orientation Not on file Last Filed Vital Signs Vital Sign Reading Time Taken Comments Blood Pressure 114/80 07/16/2013 2:27 PM 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 Pulse 94 07/16/2013 2:27 PM 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 Temperature - - Respiratory Rate - - Oxygen Saturation 98% 07/16/2013 2:27 PM 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 Inhaled Oxygen Concentration - - Weight 66.2 kg (146 lb) 07/16/2013 2:27 PM 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 Height - - Body Mass Index - - Plan of Treatment Health Maintenance Due Date Last Done Comments HEPATITIS C SCREENING 09/20/1966 DTAP/TDAP/TD VACCINES (1 - Tdap) 1967 PNEUMOCOCCAL VACCINE 50+ (1 of 1 - PCV) 1998 ZOSTER VACCINE (1 of 2) 1998 Respiratory Syncytial Virus (RSV) Vaccine Pt: or over 60 yrs (1 - 1-dose 75+ series) 2023 COVID-19 VACCINE (2023-2 5 season) 2024 DEPRESSION SCREENING 08/05/2024 INFLUENZA VACCINE (Season Ended) 2025 HEPATITIS B VACCINE Aged Out No longe r eligible based on patient's age to complete this topic HIB VACCINE Aged Out No longer eligi ble based on patient's age to complete this topic HPV VACCINE Aged Out No longer eligi ble based on patient's age to complete this topic MENINGOCOCCAL (Group B) VACC INE SHARED DECISION-MAKING Aged Out No longer eligibl e based on patient's age to complete this topic MENINGOCOCCAL GROUPS A/C/Y/W VACCINE Aged Out No longer eligible b ased on patient's age to complete this topic Insurance MEDICARE Care Teams Degreasing Solution Reclaimer Relationship Specialty Start Date End Date Madi Garcia MD [address] [facility] [address] [place] [address] PCP - General Internal Medicine 07/16/13
== END ==
PROVIDERS: PCP Nurse Practitioner Family; Visit Provider Nurse Practitioner Family
DX: Z88.8 Allergy status to other drugs, medicaments and biological substances (principal); R05.9 Cough, unspecified; Z87.898 Personal history of other specified conditions
CPT/HCPCS: 71046

== ENCOUNTER 2024-12-25 19:04 | Inpatient (IN) | payer MEDICARE, SELFPAY ==
--- NOTE | ~2024-12-25 | CT_ITS ---
CLINICAL INDICATION: Productive cough COMPARISON: Reference is made to multiple prior radiographs of the chest performed most recently appr oximately 1 hour earlier and dating back to 04/29/2024 cm. TECHNIQUE: Multiple contiguous axial images of the chest was performed following the administration o f intravenous contrast. This CT examination was performed utilizing dose reduction techniques. DLP: 173 mGy-cm FINDINGS/OBSERVATIONS: LUNG:Severe panlobular emphysematous disease is identified. Redemonstration of a 17 mm nodule within the superior segment of the right lower lobe Diffuse cylindrical bronchiectasis is identified. The remainder of the lungs are clear. HEART: The heart is of normal size, without pericardial effusion. MEDIASTINUM: Calcified lymph nodes within the mediastinum, consistent with prior granulomatous diseas e. No pathologically enlarged or morphologically suspicious lymph nodes are identified within the medias tinum, bilateral axilla, within the soft tissues of the anterior chest wall. Moderate hiatal hernia. SOFT TISSUES OF THE CHEST: Unremarkable. BONES OF THE CHEST: No acute fracture. No lytic or blastic lesions are identified. UPPER ABDOMEN: Punctate calcifications identified within the splenic parenchyma, suggesting prior granulomatous dise ase. The gallbladder is decompressed, and otherwise unremarkable. IMPRESSION: Severe panlobular emphysematous disease with diffuse cylindrical bronchiectasis. Additional findings suggesting prior granulomatous disease. Reviewed, dictated and finalized at location A. IMPRESSION: Severe panlobular emphysematous disease with diffuse cylindrical bronchiectasis . Additional findings suggesting prior granulomatous disease.
--- NOTE | ~2024-12-25 | XR_ITS ---
CHEST RADIOGRAPH CLINICAL HISTORY: COUGH . COMPARISON: 12/25/2024 TECHNIQUE: Single portable view of the chest. FINDINGS The left mid lung is partially obscured due to pacemaker/AICD generator. Wires project over the right atrium and right ventricle. The remainder of the cardiomediastinal silhouette is otherwise unremarkable. Increased interstitial markings within the right mid to lower lung field, for which an early infiltra te is suspected. The remainder of the lungs are clear. IMPRESSION: Early infiltrate suspected within the right mid to lower lung field, as detailed above. Reviewed, dictated and finalized at location A. IMPRESSION: Early infiltrate suspected within the right mid to lower lung field, as detaile d above.
--- NOTE | ~2024-12-25 | XR_ITS ---
CHEST RADIOGRAPH, PA AND LATERAL CLINICAL HISTORY: cp, cough and shortness of breath . COMPARISON: 12/24/2024 TECHNIQUE: PA and lateral views of the chest. FINDINGS The left mid lung is partially obscured due to AICD generator. Wires project over the right atrium and right ventricle. Calcified lymph nodes are redemonstrated within the mediastinum suggesting prior granulomatous diseas e. The remainder of the cardiomediastinal silhouette is otherwise unremarkable. The 17 mm calcified nodule within the superior segment of the right lower lobe is obscured secondary to technique on lateral view. The remainder of the lungs are otherwise clear. IMPRESSION: Prior granulomatous disease, without focal infiltrate or effusion. If clinical suspicion persists, cross-sectional imaging (noncontrast enhanced CT examination of the chest) is suggested for further evaluation. Reviewed, dictated and finalized at location A. IMPRESSION: Prior granulomatous disease, without focal infiltrate or effusion. If clinical suspicion persists, cross-sectional imaging (noncontrast enhanced C T examination of the chest) is suggested for further evaluation.
--- NOTE | 2024-12-25 19:06 | ECG_ITS ---
Test Date: 2024-12-25 19:10:15 Measurements Intervals [place] Rate: 95 P: 100 CT: 193 QRS: 11 QRSD: 101 T: 92 QT: 337 QTc: 425 Interpretive Statements ELECTRONIC ATRIAL PACEMAKER LOW QRS VOLTAGE IN EXTREMITY LEADS [QRS DEFLECTION < 0.5 mV IN LIMB LEADS] ABNORMAL QRS-T ANGLE [QRS-T AXIS DIFFERENCE > 60] Compared to ECG 07/10/2024 13:44:34 Sinus rhythm no longer present T-wave abnormality no longer present Possible ischemia no longer present Electronically Signed On 12-26-2024 17:08:33 CDT by James Romo M.D.
--- OUTSIDE RECORDS SUMMARY | 2024-12-25 19:09 | XMS_ITS | CONTINUITY OF CARE DOCUMENT ---
Author Name skylar cheng Address Unknown Organization [facility] Address [address] [place] [address] Phone [phone] Care Team Providers Care Thiokol Operator Name Role Phone Sally SANCHEZ, Juwan Klein Unavailable [phone] ANIBAL GUSMAN MD Unavailable [phone] ANIBAL GUSMAN MD Unavailable [phone] PROBLEMS Condition Status Date Provider Notes Dizziness active Torrey Maldonado Coumadin clinic active Vishal Hernandez RN Abnormal chest CT scan active Vishal Hernandez RN Cardiomyopathy active Saniya Maria Victoria DIZZINESS-07/17 CATH LAD-CUT BALLOON- INTEGRITY completed - [...] Jose doyle MD Atrial fib active Jose Ma MD Atrial flutter paroxysmal active Jose mon MD PVD unspecified active Jose Ma MD Preop cardiovasc. examination active Renny Zavala MD Risk of amiodarone toxicity w alf active Juwan Zavala MD Mitral regurgitation, mild-moderate active Juwan Zavala MD Dizziness active Juwan Zavala MD Hypercholesterolemia active Juwan danielle MD CHF - systolic active Juwan Zavala MD Cardiology examination active Jose anne MD ENCOUNTERS Date Type Provider Location Encounter Diag nosis - In-person encounter Office Visit Juwan Zavala MD [facility] - In-person encounter Office Visit Jose Ma MD [facility] - In-person encounter Office Visit Jose Ma MD [facility] Cardiology examination - In-person encounter Office Visit Juwan Zavala MD [facility] - In-person encounter Office Visit Juwan Zavala MD [facility] CHF - systolic - In-person encounter Office Visit Juwan Zavala MD [facility] - In-person encounter Office Visit Juwan Zavala MD [facility] Hypercholesterolemia - In-person encounter Office Visit Juwan Zavala MD [facility] - In-person encounter Office Visit Juwan Zavala MD [facility] - In-person encounter Office Visit Juwan Zavala MD [facility] - In-person encounter Office Visit Juwan Zavala MD [facility] - In-person encounter Office Visit [facility] - In-person encounter Office Visit Jose Ma MD [facility] - In-person encounter Office Visit Juwan Zavala MD [facility] - In-person encounter Office Visit Juwan Zavala MD [facility] - In-person encounter Office Visit Juwna Zavala MD [facility] - In-person encounter Office Visit Jose Ma MD [facility] - In-person encounter Office Visit Juwan Zavala MD [facility] - In-person encounter Office Visit Juwan Zavala MD [facility] Office Dizziness - In-person encounter Office Visit Juwan Zavala MD [facility] Mitral regurgitation, mild-moderate - In-person encounter Office Visit Juwan Zavala MD [facility] - In-person encounter Office Visit Juwan Zavala MD [facility] - In-person encounter Office Visit Juwan Zavala MD [facility] 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 examination - In-person encounter Office Visit Juwan Zavala MD [facility] - In-person encounter Office Visit Juwan Zavala MD [facility] - In-person encounter Office Visit Juwan Zavala MD [facility] - In-person encounter Office Visit Juwan Zavala MD [facility] - In-person encounter Office Visit Juwan Zavala MD [facility] - In-person encounter Office Visit Juwan Zavala MD [facility] - In-person encounter Office Visit Juwan Zavala MD [facility] - In-person encounter Office Visit Juwan Zavala MD [facility] - In-person encounter Office Visit Jose [...] In-person encounter Office Visit Jose Ma MD [facility] - In-person encounter Office Visit Jose Ma MD [facility] - In-person encounter Office Visit Jose Ma MD [facility] Essential HypertensionCAD 07/17 CATH LAD-Cutting Balloon INTEGRITY stent - In-person encounter Office Visit Juwan Zavala MD [facility] Office - In-person encounter Office Visit Juwan Zavala MD [facility] - In-person encounter Office Visit Juwan Zavala MD [facility] CARDIOMYOPATHY- ISCHEMIC-EF 5-10%, S/P [employer] AICD and ep studyMURAL THROMBUS, LEFT VENTRICLE-ON COUMADIN VITAL SIGNS Date Observation Value Provider Body Mass Index (Ratio) 22.96 kg/m2 Melodie Zavala MD blood pressure, diastolic 82 mm[facility]Hg[facility] 130 mm[Hg] cat [facility] oxygen saturation, oximetry 97 % [facility] pulse rate 72 /min [facility] respiratory rate E&M 12 /min [facility] weight E&M 151 [lb_av] [facility] height E&M 68 [in_i] [facility] blood pressure, cuff size regular [facility] Body Mass Index (Ratio) 23.57 kg/m2 Torrey Maldonado blood pressure, diastolic 75 mm[Hg] [facility] blood pressure, systolic 121 mm[Hg] [facility] oxygen saturation, oximetry 95 % [facility] pulse rate 70 /min [facility] respiratory rate E&M 12 /min [facility] weight E&M 155 [lb_av] [facility] height E&M 68 [in_i] [facility] blood pressure, cuff size regular [facility] Body Mass Index (Ratio) 23.57 kg/m2 Abran Ma MD blood pressure, diastolic 86 mm[Hg] [facility], systolic 125 mm[Hg] [facility], oximetry 97 % [facility] pulse rate 85 /min [facility] rate E&M 12 /min [facility] weight E&M 155 [lb_av] [facility] height E&M 68 [in_i] [facility] blood pressure, cuff size regular [facility] Body Mass Index (Ratio) 24.17 kg/m2 Melodie Zavala MD blood pressure, diastolic 80 mm[Hg] Li nkLog blood pressure, systolic 111 mm[Hg] Sherry kLogic blood pressure, diastolic 80 mm[Hg] Yanni yla [facility] blood pressure, systolic 111 mm[Hg] Janae la [facility] blood pressure, cuff size regular Yanni deleona [facility] oxygen saturation, oximetry 97 % Elisa [facility] pulse rate 78 /min Elisa [facility] weight E&M 159 [lb_av] Elisa [facility] height E&M 68 [in_i] Elisa [facility] Body Mass Index (Ratio) 23.72 kg/m2 Melodie Zavala MD blood pressure, cuff size regular [facility] pressure, diastolic 68 mm[Hg] [facility] blood pressure, systolic 110 mm[Hg] [facility] saturation, oximetry 97 % [facility] respiratory rate E&M 14 /min [facility] pulse rate 76 /min [facility] weight E&M 156 [lb_av] Shannan Blackwell height [...] misty RN height E&M 68 [in_i] Adina Osmani klein RN Body Mass Index (Ratio) 24.02 [...] ri Gruenenfelder oxygen saturation, oximetry 96 % Mercedes Gruenenfelder respiratory rate E&M 16 [...] blood pressure, cuff size regular Ca therine Aneta blood pressure, diastolic 79 mm[Hg] Ca therine Gary blood pressure, systolic 128 mm[Hg] Cat herine Gary oxygen saturation, oximetry 95 % Heather Gary respiratory rate E&M 16 /min Catheri ne Aneta pulse rate 101 /min Heather Gary weight [...] Body Mass Index (Ratio) 24.02 kg/m2 Melodie Zavala MD blood pressure, cuff [...] Zulema loving oxygen saturation, oximetry 98 % Zulema Connors height E&M 68 [in_i] Zulema Velarde [...] Padilla blood pressure, diastolic 75 mm[Hg] To [facility] blood pressure, systolic 121 mm[Hg] [facility] oxygen saturation, oximetry 97 % [facility] respiratory rate E&M 16 /min [facility] pulse rate 73 /min [facility] temperature E&M 99.1 [degF] [facility] temperature site temporal [facility] weight E&M 157 [lb_av] [facility] height E&M 68 [in_i] [facility] Body Mass Index (Ratio) 24.93 kg/m2 Melodie [...] essure, sitting, left arm, systolic 118 Zulema Connors height E&M 68 [in_i] Zulema Velarde [...] Mercedes shipman pulse rate 79 /min Mercedes croona weight E&M 157 [lb_av] Mercedes mendezer height E&M 68 [in_i] Mercedes corona [...] pressure, diastolic, standing 90 mm [Hg] [facility], systolic, standing 146 mm [Hg] [facility] Body Mass Index (Ratio) 22.80 kg/m2 [facility], [facility] 88 mm[Hg] As [facility] blood pressure, systolic 158 mm[Hg] [facility] pulse rate 88 /min [facility] oxygen saturation, oximetry 98 % [facility] respiratory rate E&M 17 /min [facility] 150 [lb_av] Kimmie Zross [...] Suni Araiza oxygen saturation, oximetry 95 % Suin Araiza respiratory rate E&M 18 /min Suni [...] /min Mercedes atkinsonvineet weight E&M 150 [lb_av] Mercedes Jocelynegerald lder blood pressure, diastolic 80 mm[Hg] [...] cholesterol, non-HDL, total 186 mg/dL [facility] C, [place] [address] 11/16 lipoprotein, beta, serum, point, quantitative, calculated 153 mg/dL Link[facility]ic <=129 High C, [place] [address] 11/16 HDL CHOLESTEROL 58 mg/dL [facility] >=40 Normal C, [place] [address] 11/16 triglyceride, serum, fasting 184 mg/dL [facility] <=149 High C, [place] [address] 11/16 cholesterol, serum 244 mg/dL [facility] 30-199 High C, [place] [address] 11/16 NT-pro BNP 4305 Link[facility] <=450 High C, [place] [address] 11/16 aspartate aminotransferase (SGOT), serum 20 1/L [facility] 10-50 Normal C, [place] [address] 11/16 alanine aminotransferase (SGPT), serum 9 1/L [facility] 7-55 Normal C, [place] [address] 11/16 Alkaline phosphatase 42 [facility] 40-130 Normal C, [place] [address] 11/16 albumin, serum 4.3 g/dL [facility] 3.5-5.0 Normal C, [place] [address] 11/16 protein, total, serum 7.4 g/dL [facility] 6.5-8.5 Normal C, [place] [address] 11/16 bilirubin, serum, total 1.0 mg/dL [facility] 0.1-1.2 Normal C, [place] [address] 11/16 calcium, serum 9.3 mg/dL [facility] 8.5-10.3 Normal C, [place] [address] 11/16 blood glucose, random 93 mg/dL [facility] 70-199 Normal C, [place] [address] 11/16 creatine, serum 1.38 mg/dL [facility] 0.80-1.30 High C, [place] [address] 11/16 urea nitrogen, blood 20 mg/dL [facility] 6-25 Normal C, [place] [address] 11/16 anion gap, serum 12 mmol/L [facility] 2-15 Normal C, [place] [address] 11/16 carbon dioxide, venous blood 28 mmol/L [facility] 22-32 Normal C, [place] [address] 11/16 chloride, serum 100 mmol/L [facility] 97-110 Normal C, [place] [address] 11/16 potassium, serum 3.8 MMOL/L [facility] 3.3-4.9 Normal C, [place] [address] 11/16 sodium, serum 140 mmol/L [facility] 135-145 Normal C, [place] [address] 11/16 Absolute Basophils 0.07 K/CUMM [facility]ic 0.00-0.10 Normal C, [place] [address] 11/16 Absolute Monocytes 0.40 K/CUMM [facility] 0.20-0.80 Normal , [place] [address] 11/16 Absolute Lymphocytes 1.31 K/CUMM [facility] 0.80-3.30 Normal C, [place] [address] 11/16 Absolute Neutrophils 4.43 K/CUMM [facility] 1.50-6.50 Normal C, [place] [address] 11/16 nucleated red blood cells as percent of blood leukocytes 0.00 K/CUMM [facility] 0.00-0.01 Normal , [place] [address] 11/16 red blood cell distribution width, size density 45.1 fL [facility] 35.7-48.1 Normal C, [place] [address] 11/16 mean corpuscular hemoglobin concentration, RBC 32.1 G/DL [facility] 32.3-35.7 Low C, [place] [address] 11/16 mean corpuscular hemoglobin, RBC 29.4 pg [facility]ic 27.1-33.3 Normal C, [place] [address] 11/16 mean corpuscular volume, RBC 91.7 fL [facility] 81.3-96.4 Normal C, [place] [address] 11/16 erythrocyte count, whole blood 4.72 M/CUMM Link[facility] 4.30-5.80 Normal C, [place] [address] 11/16 mean platelet volume 9.9 fL [facility] 9.1-12.3 Normal C, [place] [address] 11/16 platelet count 242 10*3/uL [facility] 150-400 Normal C, [place] [address] 11/16 hematocrit, blood 43.3 % LinkLogic 38.9-50.3 Normal C, [place] [address] 11/16 hemoglobin, blood 13.9 g/dL [facility]Log[facility] 13.0-17.5 Normal C, [place] [address] 11/16 Estimated Glomerular Filtration Rate (calc) 53 mL/min/{1.7 3_m2} LinkLogic >=60 Low C, [place] [address] 02/02 coagulation managed by Antonio Kirkpatrick RN [...] 12/15 international normalized ratio (INR) 1.9 Heather Aneta Normal 0 12/15 prothrombin time (patient) 23.1 [...] Saha 09/19 international normalized ratio (INR) 1.7 Daniakimberly Saha Normal 09/08 coagulation managed by Vishal Rodgers Hernandez RN 09/08 international normalized ratio (INR) 2.9 Leyla [place] Normal 09/08 prothrombin time (patient) 35.1 s Leyla Roberto 08/29 coagulation managed by Vishal Rogders Hernandez RN 08/29 international normalized ratio (INR) [...] RN 08/28 international normalized ratio (INR) 1.2 Vishal Hernandez RN Normal 08/28 prothrombin time (patient) [...] 04/24 international normalized ratio (INR) 2.3 Alejandra [place] Normal 04/11 coagulation managed by Vishal Hernandez RN 04/11 international normalized ratio (INR) 2.1 BrendanKathy Preciado Normal 04/11 prothrombin time (patient) 25.1 s Brendan Preciado 04/04 coagulation managed by Vishal Hernandez RN 04/04 international normalized ratio (INR) 4.9 Mercedes Black Normal 03/21 coagulation managed by Vishal Hernandez RN 03/21 international normalized ratio (INR) 1.6 Vishal Hernandez RN Normal 03/07 coagulation managed by Daina Saha 03/07 international normalized ratio (INR) 1.8 Charito O'Ricki Normal 03/07 prothrombin time (patient) 21.6 s Charito O'Ricki 02/17 coagulation managed by Vishal Hernandez RN 02/17 prothrombin time (patient) 40.5 s Alejandra [place] 02/17 international normalized ratio (INR) 3.4 Alejandra [place] Normal 01/31 coagulation managed by Vishal Hernandez RN 01/31 international normalized ratio (INR) 1.8 Vishal Hernandez RN Normal 01/31 prothrombin time (patient) 21.4 s Vishal Hernandez RN 01/16 coagulation managed by Vishal Hernandez RN 01/16 international normalized ratio (INR) 1.8 Brendan Preciado Normal 01/16 prothrombin time (patient) 21.6 s Brendan Preciado 12/30 coagulation managed by Vishal Hernandez RN [...] 3.5-5.2 High sodium, serum 141 mmol/L LinkLogic 601-095 3186/1 0/31 urea nitrogen/creatinin e ratio, serum 21 [...] Normal prothrombin time (patient) 18.3 s Nayeli Dimmit 2020/0 915 coagulation managed by Vishal Hernandez [...] 04/02 coagulation managed by Maggie Ernie Ede VICTIM WITNESS ADMINISTRATOR Maggie N Ede 04/02 international normalized ratio (INR) 1.9 Maggie N Ede Normal 04/02 prothrombin time (patient) 22.2 s Maggie N Ede 03/26 coagulation managed by Maggie N Ede VICTIM WITNESS ADMINISTRATOR Maggie N Ede 03/26 international normalized ratio [...] 12/25 international normalized ratio (INR) 3.0 Zulema Connors Normal 12/25 prothrombin time (patient) 36.1 s Zulema Connors 12/12 coagulation managed by Vishal Hernandez RN 12/12 international normalized ratio (INR) 2.5 [place] Hsieh Normal 12/12 prothrombin time (patient) 30.5 s Irvin Hsieh 12/02 coagulation managed by Vishal Hernandez RN 12/02 international normalized ratio (INR) 1.3 Irvin Hsieh Normal 12/02 prothrombin time (patient) 15.6 s [place] 11/07 coagulation managed by Vishal Hernandez RN 11/07 international normalized ratio (INR) 1.8 Zulema Connors Normal 11/07 prothrombin time (patient) 21.8 s Zulema Connors 10/31 coagulation managed by Vishal Hernandez RN 10/31 international normalized ratio (INR) 2.5 [place] Normal 10/31 prothrombin time (patient) 29.9 [...] Normal 08/25 prothrombin time (patient) 73.4 s Zuelma Connors 08/23 coagulation managed by Vishal Hernandez [...] Normal 08/12 prothrombin time (patient) 37.6 s [place] coagulation managed by Vishal Hernandez RN [...] RN 09/24 international normalized ratio (INR) 1.7 Santa Annagreta Valenciaam Normal 09/24 prothrombin time (patient) 20.4 [...] RN 08/16 international normalized ratio (INR) 2.9 [place] Normal 08/16 prothrombin time (patient) 34.9 [...] 01/18 international normalized ratio (INR) 3.6 Brendan Prceiado Normal 01/18 prothrombin time (patient) 43.7 s [...] coagulation managed by Vishal Hernandez RN Vishal Heranndez RN 04/02 international normalized ratio (INR) 1.5 [...] Fitzgeralds RN 10/30 coagulation managed by Vishal Fitgzeralds RN Vishal Fitzgeralds RN 10/30 international normalized [...] 09/26 prothrombin time (patient) 25.0 s Vishal Fitzgeralds RN 09/09 coagulation managed by Vishal Fitzgeralds [...] 08/25 coagulation managed by Lotus Garcia RN Nazlinialexandrea Garcia RN 08/25 international normalized ratio (INR) [...] Linares RN 01/18 platelet count 287 10*3/mm3 [facility] 01/18 hematocrit, blood 42.4 % [facility] 01/18 international normalized ratio (INR) 2.0 [facility] Mahesh 01/18 creatinine, serum 1.03 mg/dL [facility] 01/18 potassium, serum 3.8 mmol/L [facility] 01/18 sodium, serum 141 mmol/L [facility] 09/10 LDL/HDL (low-density lipoprotein/high-d ensity lipoprotein) ratio [...] LinkLogic Normal 09/10 cholesterol, serum 181 mg/[facility]199 Normal 09/11 platelet count 276 10*3/mm3 [facility] 09/11 hematocrit, blood 48.4 % [facility] 09/11 triglyceride, serum, fasting 62 mg/dL [facility] 09/11 HDL cholesterol, serum 36 mg/dL [facility] 09/11 lipoprotein, beta, serum, point, quantitative, calculated 117 mg/dL [facility] 09/11 cholesterol, serum 165 mg/dL [facility] 09/11 international normalized ratio (INR) 4.4 [facility] 09/11 thyroid stimulating hormone, serum 0.216 u[IU]/mL [facility] 09/11 D-dimer quantitative mcg/mL 1.51 ug/mL [facility] 09/11 B-type natriuretic peptide 500 pg/mL [facility] 09/11 alanine aminotransferase (SGPT), serum 49 1/L [facility] 09/11 aspartate aminotransferase (SGOT), serum 24 1/L [facility] 09/11 creatinine, serum 0.90 mg/dL [facility] 09/11 potassium, serum 3.8 mmol/L [facility] 09/11 sodium, serum 136 mmol/L [facility] HISTORY OF MEDICATION USE Medication Status Instructions [...] ORAL TABLET completed 1/2 tab daily - iVshal Hernandez RN warfarin 2 mg tablet completed [...] Linares RN CARDIOMYOPAT HY- ISCHEMIC-EF 5-10%, S/P [employer] AICD and ep study AMIODARONE HCL 200 [...] history of marijuana use no Alex Hackett [facility] drug use no Alex [facility] alcohol use, average drinks per day social Alex Hackett [facility] alcohol use yes Alex [facility] passive cigarette sm ana exposure no Alex Hackett [facility] smoking, year quit 2018 Alex franz [facility] smoking history, tot al pack/year 20 Alex Hackett [facility] cigarette use yes Alex Avendano ADMINISTRATION PHYSICIAN,EGG FACTORY WORKER smoking status Former smoker Alex Hackett DNP,EGG FACTORY WORKER number of grandchildren Jose Ma MD personal history of marijuana use no Alexandro Millardt drug use no Alexandro Millardt alcohol use, average drinks per day social Alexandro Millardt alcohol use yes Alexandro Millardt passive cigarette sm ana exposure no Alexandro Nacht smoking, year quit 2018 Alexandro Jordna ht smoking history, tot al pack/year 20 Alexandro Millardt cigarette use yes Alexandro Millardt smoking status Former smoker Alexandro Freemant personal history of marijuana use no Verah Bonareri ADMINISTRATION PHYSICIAN cigarette use yes Verah Bonareri ADMINISTRATION PHYSICIAN drug use no Verah Bonareri ADMINISTRATION PHYSICIAN alcohol use, average drinks per day social Verah Bonareri ADMINISTRATION PHYSICIAN alcohol use yes Verah Bonareri ADMINISTRATION PHYSICIAN passive cigarette sm ana exposure no Verah Bonareri ADMINISTRATION PHYSICIAN smoking status Former smoker Karis Bonare ri ADMINISTRATION PHYSICIAN drug use no Juwan danielle MD alcohol [...] MD drug use no Brea Ventimig corinna [facility] alcohol use, average drinks per day social Brea Lovegllizy [facility] alcohol use yes Brea weinstein [facility] smoking status Never smoker Brea wilburn [facility] social history E&M Lives with family/friends Perez hou is a current smoker. S mokes 4 cigarettes per day. F ormerly quit in 2013. Smoking History: Perez hou has never smoked. Juwan Zaavla MD social history reviewed E&M revi ewed [...] use, averag e drinks per day yes [facility] passive cigarette sm ana exposure no [facility] smoking/tobacco cess ation, patient education and counseling yes [facility] smoking, year quit 2013 [facility] smoking history, tot al pack/year 20 [facility] cigarette use yes [facility] smoking status Current every day smoker C ancelmochristinamelanie [facility] social history E&M Lives with family/friends P [...] use, averag e drinks per day yes [facility] passive cigarette sm ana exposure no [facility] smoking/tobacco cess ation, patient education and counseling yes [facility] smoking, year quit 2013 [facility] smoking history, tot al pack/year 20 [facility] cigarette use yes [facility] smoking status Current every day smoker [facility] social history E&M Lives with family/friends P [...] smoking status Former smoker Brea Oneal chris EGG FACTORY WORKER social history reviewed E&M revi ewed [...] averag e drinks per day yes Aurea [facility] drug use none Aurea [facility] passive cigarette sm ana exposure no Aurea Potts smoking/tobacco cess ation, patient education and counseling yes Aurea Potts smoking, year quit 2012 Aurea Fitzpatrick cCarodriguez smoking history, tot al pack/year 20 Aurea Potts cigarette use yes Aurea Potts smoking status Former smoker Jose stoner MD cigarette use yes Aurea [facility] alcohol use, average drinks per day social Aurea [facility] caffeine use, averag e drinks per day yes Aurea [facility] drug use none Aurea [facility] passive cigarette sm ana exposure no Aurea [facility] smoking/tobacco cess ation, patient education and counseling yes Aurea [facility] smoking status Current every day smoker Amari abad [facility] social history E&M L court with family/friends [...] Management Plan continue current therapy Alex Philiposei DNP,EGG FACTORY WORKER HRA, CV Assess/Plan, Angina (inactive) Management Plan continue current therapy Alexandro Triplett HRA, CV Assess/Plan, Angina (inactive) Management Plan continue current therapy Karis Roberts NP HRA, CV Assess/Plan, Angina (inactive) Management Plan continue current therapy Juwan Zavala MD HRA, CV Assess/Plan, Angina (inactive) Management Plan continue current therapy Brea Ventichris EGG FACTORY WORKER HRA, CV Assess/Plan, Angina (inactive) Management [...] Payer name Policy type / Coverage type [place] red [place] party ID A[employer] MEDICARE ADVANTAGE ST 0 003 (HMO POS) Medicare [id number] ADVANCE DIRECTIVES Name Date DISCUSSED - NO DECISION MADE TREATMENT PLAN Date Name Performer [id number],C,B P 107/66 A verage per home RPM 121/69 (controlled) His updated medication list for this problem includes: Carvedilol 3.125 Mg Tablet (Carvedilol) ..... Take 1 tablet by mouth twice a day Furosemide 40 Mg Tablet (Furosemide) ..... Take 1 tablet by mouth every other day Brea Ventimiglia [facility] [id number],C,f ollow up CT was ordered as patient on amiodarone w as not done will re-order Brea Ventimiglia [facility] [id number],C,E F of 20% on last echo with combined systolic and diastolic dysfunction R emains on GDMT I CD in place Brea Ventimiglia [facility] [id number],C,n one noted on last device check r emains on amiodarone and BB o n eliquis for AC Brea Loveglia [facility] [id number],C,will do f/u e cho Breaneri Onealmiglia [facility] [id number],C,H as been chronic ongoing dizziness N o orthostatic changes on exam today D evice check shows normal function with no arrythmia B P at goal at home c oncern for otitis media have asked him to see PCP Brea Lovegllizy [facility] [id number],C,a symptomatic w ill do f/u echo Breaneri Onealmiglia [facility] [id number],C, E CHO 05/22/22 CONCLUSIONS: 1 . Technically [...] moderate mitral valve regurgitation. Juwan Zavala MD [id number],S, Juwan Zavala MD [id number],S, C onclusions: Although there is airway obstruction [...] compared to previous study. Juwan Zavala MD [id number],C,p acemaker function okay and remians on eliquis for AFIB S R and atrial paced Juwan Zavala MD [id number],S,has [place] [employer] ICD Juwan Zavala MD [id number],C,CT pending fr o amnioderone Juwan Zavala MD [id number],C, H e was supposed to be on Entresto, but is now on Ramipril from [place]. June 15, 2022 C reatine was (2.39) contine with DUNCAN with LV dysfunction. Reduce Amiodarone to 100mg once daily October 10, 2022 c heck amio labs February 15, 2023 l abs reviewed cr was 1.9 Juwan Zavala MD [id number],C, S R and atrial paced Juwan Zavala MD [id number],S, 1 new episode on 12/29/21 in VF [...] on 09-17-2022 6:40 AM Juwan Zavala MD [id number],C, C ONCLUSIONS: 1 . Abnormal septal motion [...] physiologic tricuspid valve regurgitation. Juwan Zavala MD [id number],C, N o new angina Juwan Zavala MD [id number],C,on eliquis Sa josef Zavala MD [id number],C, H e was supposed to be on Entresto, but is now on Ramipril from [place]. June 15, 2022 C reatine was (2.39) contine with DUNCAN with LV dysfunction. Reduce Amiodarone to 100mg once daily October 10, 2022 c heck amio labs Juwan Zavala MD [id number],C,E CHO 05/22/22 CONCLUSIONS: 1 . Technically difficult [...] moderate mitral valve regurgitation. Juwan Zavala MD [id number],C, H e was supposed to be on Entresto, but is now on Ramipril from [place]. June 15, 2022 C reatine was (2.39) contine with DUNCAN with LV dysfunction. Reduce Amiodarone to 100mg once daily Juwan Zavala MD [id number],C, N o recent Vtach, need to reduce amio, will likely stop in the next couple of weeks. Will reduce to 100mg mon, wed, frid and plan on stopping assuming that he is no longer having episodes of VT. Check PFTs. EKG is SR and atrial pacing Juwan Zavala MD [id number],W, C ONCLUSIONS: 1 . Abnormal septal motion [...] physiologic tricuspid valve regurgitation. Juwan Zavala MD [id number],C, M ay have vertigo wants to see ENT. Stopped his losartan . hx of CHF. H as to stay on diuretic creatinine was 1.5 recently June 15, 2022 C reatine 2.39 on May 16 labs Juwan Zavala MD [id number],S,H e was supposed to be on Entresto, but is now on Ramipril from [place]. Juwan Zavala MD [id number],S,S ee what's going on with the renal function. Check labs. Juwan Zavala MD [id number],C, S table INRs,. no bleeding May 16, 2022 A pparently was changed to Eliquis 2.5 BID. Unclear to me when. Juwan Zavala MD [id number],C, C ONCLUSIONS: 1 . Abnormal septal motion [...] physiologic tricuspid valve regurgitation. Juwan Zavala MD [id number],C,No new angina Torrey Maldonado [id number],C,T olerating Metorpolol. Will start him on Spironolactone 25mg. 1 new episode on 12/29/21 in VF zone t erminated with ATP. 10 NSVT episodes. A ppear to be af with RVR. HF trending s hows no elevation. Battery ok. Torrey Maldonado [id number],C,1 new episode on 12/29/21 in VF zone t erminated with ATP. 10 NSVT episodes. A ppear to be af with RVR. HF trending s hows no elevation. Battery ok. Torrey Maldonado [id number],C, H is updated medication list for this problem includes: Warfarin 2 Mg Tablet (Warfarin) ..... Take 1 tablet by mouth every evening expect on saturday and saturday take 1/2 tab Lopressor 50 Mg Tablet (Metoprolol tartrate) ..... Take 1/2 tablet by mouth twice a day take 25mg twice daily Torrey Maldonado [id number],C, B P today: 102/70 P rior BP: 110/75 (01/19/2022) Labs Reviewed: C reat: 1.80 (06/04/2020) C hol: 287 (06/04/2020) HDL: 46 (06/04/2020) Torrey Maldonado [id number],C,Resolved sinc e starting Lasix. Torrey Maldonado [id number],S,Stable INRs,. no bleeding Juwan Zavala MD [id number],C, S elective coronary angiography, left ventriculography, right [...] the setting of no-reflow Juwan Zavala MD [id number],S,H aving VT, VF started lopressor 25mg bid. Reinterrogate device. H aving VT reviewed with pt. Has ICD in place. Will add lopressor 25mg bid. BP shoudl tolerate. Add magnesium 400mg bid. Juwan Zavala MD [id number],S,C ONCLUSIONS: 1 . Abnormal septal motion consistent [...] physiologic tricuspid valve regurgitation. Juwan Zavala MD [id number],C, H is updated medication list for this problem includes: Warfarin 2 Mg Tablet (Warfarin) ..... Take 1 tablet by mouth every evening as directed except on mon, wed,fri, sat take 1 1/2 tab Stable on Coumadin. Juwan Zavala MD [id number],S,C Urrently not on any amio. Left ventricular [...] other day decreasd dose Juwan Zavala MD [id number],S,C ONCLUSIONS: 1 . Abnormal septal motion consistent [...] physiologic tricuspid valve regurgitation. Juwan Zavala MD [id number],C, S table on Coumadin. Gerard Doty [id number],C,D ECREASE furosemide to 20mg (half a tab of 40mg) every other day D ECREASE potassium to half a tablet every day S TOP losartan S TART midodrine 5mg one tab three times daily Rudynirmala Soren [id number],W, M ay have vertigo wants to see ENT. Stopped his losartan . hx of CHF. H as to stay on diuretic creatinine was 1.5 recently DECREASE furosemide to 20mg (half a tab of 40mg) every other day D ECREASE potassium to half a tablet every day S TOP losartan S TART midodrine 5mg one tab three times daily Gerard Doty [id number],C, C onclusions: Although there is airway obstruction [...] compared to previous study. Juwan Zavala MD [id number],S, The symptoms began 1 month ago. The severity is described as severe. has SVT ( atrial flutter) and VT documented. r ecommend: EP study with arrhythmia ablation with carto CT , and anesthesia at [facility] - do not stop any meds before the ablation Juwan Zavala MD [id number],C, N eeds amio labs Left ventricular ejection fraction is estimated at 15 %. Juwan Zavala MD [id number],C, S elective coronary angiography, left ventriculography, right [...] the setting of no-reflow Juwan Zavala MD [id number],S,m ost recent creatinine was 1.54 labs from 09/2021 Juwan Zavala MD [id number],C, S table on Coumadin. Juwan Zavala MD [id number],C, - C ONCLUSIONS: 1 . Severe global [...] moderate mitral valve regurgitation. Juwan Zavala MD [id number],C,M ay have vertigo wants to see ENT. We stopped his losartan . hx of CHF. Has to stay on diuretic creatinine was 1.5 recently Juwan Zavala MD [id number],S,INR stable Sa josef Zavala MD [id number],C, S elective coronary angiography, left ventriculography, right [...] the setting of no-reflow Juwan Zavala MD [id number],C,w ill stop losartan and continue with lasix. B P today: 126/68 P rior BP: 109/74 (07/15/2020) His updated medication list for this problem includes: Losartan Potassium 25 Mg Oral Tablet (Losartan potassium) ..... Take one tablet daily Furosemide 40 Mg Oral Tablet (Furosemide) ..... Take one pill every other day Juwan Zavala MD [id number],C,s uspect he has had orthostatic. Hold losartan. A lso has not taken carvedilol Juwan Zavala MD [id number],S,- C ONCLUSIONS: 1 . Severe global left [...] check lab work. Orders: P do 20 (CPT-57734) C omplex e/m visit add on (G2211) C OMPREHENSIVE METABOLIC PANEL, W/EGFR (74286) C BC (INCLUDES DIFF/PLT) (6399) L IPID PANEL (7600) P ROBNP, N TERMINAL (85604) C ortisol (708822) Torrey Maldonado Telehealth: r ecently cardioverted at [place] R emains in SR I f has [...] Will need gen change soon. Alex Hackett DNP,[employer] Electrophysiology: r ecently cardioverted at [place] R emains in SR I f has [...] OAC with eqlis, renal dose. Alex Hackett DNP,[facility] Electrophysiology:So me dizziness and lightheadednes still. Advised to consume 6 cups of water per day. May need medication changes if it continues. Alex Hackett DNP,[facility] Electrophysiology: c ontinues entresto c linically compensated m ild exeritonal SOB stable His updated medication list for this problem includes: Diltiazem Hcl 90 Mg Tablet (Diltiazem hcl) ..... Take 1 tablet by mouth twice a day Dofetilide 250 Mcg Capsule (Dofetilide) ..... Take 1 capsule by mouth twice a day take first dose morning of 08/10/24 Alex Hackett DNP,[facility] Electrophysiology: E F of 20% on [...] Alexandro Triplett Electrophysiology: r ecently cardioverted at [facility] today s top amiodaonre, start tikosyn 250mcg [...] Cardiology: L ast ov R ecently at [facility] for Decomp. Ideally start on Farxiga or [...] listed above for the patient. Recently at [facility] for Decomp. Ideally start on Farxiga or [...] PM Juwan Zavala MD Cardiology: h as [email or web address] Longevity: 1 year and 6 m [...] by mouth every other day Breaneri Lee [facility] Cardiology:follow up CT was ordered as patient on amiodarone w as not done will re-order Brea Rosa [facility] Cardiology:EF of 20% on last echo with combined systolic and diastolic dysfunction R emains on GDMT [facility] Cardiology:none note d on last device check r emains on amiodarone and BB o n eliquis for AC [facility] Cardiology:will do f/u echo [facility] Cardiology:Has been chronic ongoing dizziness N o orthostatic changes on exam today D evice check shows normal function with no arrythmia B P at goal at home c oncern for otitis media have asked him to [facility] Cardiology:asymptoma tic w ill do f/u [facility] Cardiology: E CHO 05/22/22 CONCLUSIONS: 1 [...] with carto CT , and anesthesia at [facility] - do not stop any meds [...] Oral Tablet (Warfarin sodium) ..... 1 tab arai-jcviu-jxu, 1/2 tab rest of days Amiodarone Hcl 200 Mg Oral Tablet (Amiodarone hcl) ..... One tab. daily Juwan Zavala MD Cardiology follow up -for surgery clearance:Has ICD. [employer]. Juwan Zavala MD Cardiology follow up -for [...] Mg Tabs (Warfarin sodium) ..... One tab wyyu-hjo-ugzns only Losartan Potassium 25 Mg Oral Tabs (Losartan potassium) ..... Take one tablet daily Coumadin 2 Mg Tabs (Warfarin sodium) ..... 1 tab on only Amiodarone Hcl 200 Mg Tabs (Amiodarone hcl) ..... One tab. daily Furosemide 40 Mg Tabs (Furosemide) ..... 1 tab daily Jwuan Zavala MD Cardiology Follow up :EF has imp roveed to 25% Juwan Zavala MD Cardiology Follow up :Controlled ., Juwan Zavala MD Cardiology Follow up :GEt amio testing. H is updated medication list for this problem includes: Coumadin 3 Mg Tabs (Warfarin sodium) ..... One tab zmkj-whq-ygyer only Losartan Potassium 25 Mg Oral Tabs [...] ICD shocks. Juwan Zavala MD Cardiology Follow u p :Medical complinace reemphasized. Juwan Zavala MD Cardiology [...] ..... Take 1/2 tablet bid Brea Ventimiglia [facility] Cardiology Brea Ventimigl ia [facility] Cardiology: H is updated medication list for this problem includes: Coumadin 2.5 Mg Tabs (Warfarin sodium) ..... One tab daily Amiodarone Hcl 200 Mg Tabs (Amiodarone hcl) ..... One tab. daily Brea Ventimiglia [facility] Cardiology Brea Ventimigl ia [facility] Cardiology: H is updated medication list for this problem includes: Coumadin 2.5 Mg Tabs (Warfarin sodium) ..... One tab daily Brea Ventimiglia [facility] Cardiology: H is updated medication list for this problem includes: Coumadin 2.5 Mg Tabs (Warfarin sodium) ..... One tab daily Amiodarone Hcl 200 Mg Tabs (Amiodarone hcl) ..... One tab. daily Furosemide 40 Mg Tabs (Furosemide) ..... 1 tab daily Losartan Potassium 25 Mg Tabs (Losartan potassium) ..... Take 1/2 tablet bid Brea Ventimiglia [facility] Cardiology: H is updated medication list for this problem includes: Coumadin 2.5 Mg Tabs (Warfarin sodium) ..... One tab daily Amiodarone Hcl 200 Mg Tabs (Amiodarone hcl) ..... One tab. daily Brea Ventimiglia [facility] fu: I STRESSED THAT PATIENT CANNOT [...] ep follow up faxed 07/23/14 1039 Jose aM MD ep follow up faxed 07/23/14 1039 Jose Ma MD ep follow up faxed 1 09/23/13 1039:had ICD implanted 01/22/2014 - [employer] by SK at [facility] E P study and atrial fibrillation and flutter ablation 06/21/2014 by SK at [facility] Jose Ma MD ep follow up faxed 1 09/23/13 1039:had ICD implanted 01/22/2014 - [employer] by SK at [facility] E P study and atrial fibrillation and flutter ablation 06/21/2014 by SK at [facility] updated medication list for this problem includes: [...] and flutter ablation 06/21/2014 by SK at [facility] elba d ecrease dose of Amiodarone [...] and flutter ablation 06/21/2014 by SK at [facility] d ecrease dose of Amiodarone Hcl 200 [...] faxed 4 1523: O rders: S pirometry (CPT-04001) Jose Ma MD EP f/u faxed 4 1523:EP study and atrial fibrillation and flutter ablation 06/21/2014 by SK at [facility] Jose Ma MD EP f/u faxed 4 1523:EP study and atrial fibrillation and flutter ablation 06/21/2014 by SK at [facility] Jose Ma MD pre-op faxed 06/10/14 0933: The symptoms began 1 month ago. The severity is described as severe. has SVT ( atrial flutter) and VT documented. r ecommend: EP study with arrhythmia ablation with carto CT , and anesthesia at [facility] - do not stop any meds before the ablation Jose Ma MD pre-op faxed 06/10/14 0933: The symptoms began 1 month ago. The severity is described as severe. has SVT ( atrial flutter) and VT documented. r ecommend: EP study with arrhythmia ablation with carto CT , and anesthesia at [facility] - do not stop any meds before the ablation Jose Ma MD pre-op faxed 06/10/14932 Fabby Ma MD pre-op faxed 06/10/1433:EP study with arrhythmia ablation with carto CT , and anesthesia at [facility] - do not stop any meds before the ablation Jose Ma MD pre-op faxed 06/10/1433:EP study with arrhythmia ablation with carto CT , and anesthesia at [facility] - do not stop any meds before the ablation Jose Ma MD pre-op faxed 06/10/1433 Fabyb Ma MD follow up: H is updated [...] One tab. daily C ardiac Cath: Severe deering CAD involving the LAD which will need to be addressed. Intermediate CAD of the RCA and the first obtuse marginal. Severe pulmonary hypertension. Marked elevation of LVEDP. Elevated systemic hypertension. Diminished cardiac output. Elevated pulmonary arterial pressures. - [facility] (07/05/2013) C ardiac Cath Comments: Successful cutting balloon PTCA of the LAD with a 3.5 mm x 10 mm cutting balloon and stenting of the LAD with a 3.5 x 18 Integrity bare-metal stent in the setting of a non-STEMI presentation. - [facility] (07/05/2013) Juwan Zavala MD Date Name Complete Echo Cortisol PROBNP, N TERMINAL LIPID PANEL CBC (INCLUDES DIFF/P LT) COMPREHENSIVE METABO LIC PANEL, W/EGFR EKG EKG Complete Echo CT Chest without con trast HEPATIC FUNCTION SLOAN EL LIPID PANEL CT Chest with contra st TSH, free T4, total T3 LIPID PANEL COMPREHENSIVE METABO LIC PANEL, W/EGFR Complete Echo DLCO - 17822 FRC - 85750 FVC - 65247 CT Chest with contra st CT, Coronary [...] EL Complete Echo Ambulatory Oximetry DLCO - 97015 FRC - 03562 FVC - 22297 Thyroid Panel Hepatic Function Sloan (7) INR Strip INR Strip X-Ray, Chest - Routi ne T-4, FREE TSH, 3RD GENERATION HEPATIC FUNCTION SLOAN EL 6 minute walk test Ambulatory Oximetry DLCO - 03348 FRC - 80254 FVC - 15535 Complete Echo Stress Regadenoson INR Strip Stress Regadenoson Complete Echo INR Strip INR Strip INR Strip X-Ray, Chest - Routi ne DLCO - 50637 FRC - 91389 FVC - 48213 T-4, FREE TSH, 3RD GENERATION HEPATIC FUNCTION SLOAN EL MAGNESIUM HEPATIC FUNCTION SLOAN EL THYROID PANEL WITH T SH, 3RD GENERATION CBC (H/H, RBC, INDIC ES, WBC, PLT) COMPREHENSIVE METABO LIC PANEL W/EGFR LIPID PANEL X-Ray, Chest - Routi ne DLCO - 71851 FRC - 02967 FVC - 29355 Carotid Duplex Bilat eral STR - Adenosine Complete Echo STR - Nuclear THYROID PANEL PROTHROMBIN TIME WIT H INR THYROID PANEL Full PFT PROTHROMBIN TIME WIT H INR Complete Echo STR - Adenosine STR - Adenosine Full PFT Arterial Duplex Bi-L ower EX DLCO Order - 78486 FRC Order - 39300 FVC Order - 80132 Spirometry Holter Monitor 24 Hr Spirometry Spirometry [...] completed Complex e/m visit ad d on Juwna Zavala MD completed Complex e/m visit ad [...] EKG Juwan Zavala MD completed Protime Vishal Hernandez RN completed Protime Juwan Zavala MD completed [...] doyle MD completed FVC / MVV - 88514 Juwan dominguez MD completed BLOOD COUNT HEMOGLOBIN Juwan Zavala MD completed FRC - 32292 Juwan Zavala MD completed SpO2 w/o 6min walk/titration Juwan Zavala MD completed DLCO - 91023 Juwan Zavala MD completed EKG Juwan Zavala [...] completed FVC / MVV with bronchodilator - 74898 Juwan Zavala MD completed BLOOD COUNT HEMOGLOBIN Juwan Zavala MD completed FRC - 07542 Juwan Zavala MD completed SpO2 w/o 6min walk/titration Juwan Zavala MD completed DLCO - 73544 Juwan Zavala MD completed Georgette Valle MD [...] HEMOGLOBIN Juwan Zavala MD completed FRC - 65132 Juwan Zavala MD completed DLCO - 06480 Juwan Zavala MD completed ICM Interrogation, Remote (Prof) Jwuan Zavala MD INTERROGATION EVAL REMOTE </30 D [...] Juwan Zavala MD INTERROGATION REMOTE </90 D BOX PACKER REVIEW completed AICD Interrogation, Remote (Prof) Juwan [...] MD completed Protpaula Franz MD completed Protime Lex Man MD completed Protpaula Valle MD completed AICD Interrogation, Remote (Tech) Juwan Zavala MD INTERROGATION REMOTE </90 D BOX PACKER REVIEW completed AICD Interrogation, Remote (Prof) Juwan [...] Juwan Zavala MD INTERROGATION REMOTE </90 D BOX PACKER REVIEW completed AICD Interrogation, Remote (Prof) Juwan [...] MD completed ICM Interrogation, Remote (Prof) Juwan Zavaal MD INTERROGATION EVAL REMOTE </30 D CV MNTR SYS completed ICM Interrogation, Remote (Tech) Juwan Zavala MD INTERROGATION EVAL REMOTE </30 D TECH REVIEW completed Georgette Zavala MD completed Georgette Zavala MD completed ICM Interrogation, Remote (Prof) Juwan Zavala MD INTERROGATION EVAL REMOTE </30 D CV MNTR SYS completed AICD Interrogation, Remote (Tech) Juwan Zavala MD INTERROGATION REMOTE </90 D BOX PACKER REVIEW completed AICD Interrogation, Remote (Prof) Juwan [...] completed EKG Juwan Zavala MD completed SNOMED-CT: [id number] Current Medications Documented Juwan Zavala MD completed [...] Juwan Zavala MD INTERROGATION REMOTE </90 D BOX PACKER REVIEW completed AICD Interrogation, Remote (Prof) Juwan [...] Juwan Zavala MD INTERROGATION REMOTE </90 D BOX PACKER REVIEW completed AICD Interrogation, Remote (Prof) Juwan [...] completed EKG Juwan Zavala MD completed SNOMED-CT: [id number] Current Medications Documented Juwan Zavaal MD completed Protime Juwan Zavala MD completed [...] Juwan Zavala MD INTERROGATION REMOTE </90 D BOX PACKER REVIEW completed AICD Interrogation, Remote (Prof) Juwan [...] Juwan Zavala MD INTERROGATION REMOTE </90 D BOX PACKER REVIEW completed AICD Interrogation, Remote (Prof) Juwan [...] Juwan Zavala MD INTERROGATION REMOTE </90 D BOX PACKER REVIEW completed AICD Interrogation, Remote (Prof) Juwan [...] SPECT Images Juwan Zavala MD completed SNOMED-CT: [id number] Physical Exam, Performed: Pulse Exam of Foot Juwan Zavala MD completed Protime Juwan Zavala MD completed EKG Juwan Zavala MD completed SNOMED-CT: [id number] Current Medications Documented Juwan Zavala MD completed ICM Interrogation, Remote (Prof) Juwan Zavala MD INTERROGATION EVAL REMOTE </30 D CV MNTR SYS completed AICD Interrogation, Remote (Tech) Juwan Zavala MD INTERROGATION REMOTE </90 D BOX PACKER REVIEW completed AICD Interrogation, Remote (Prof) Juwan [...] Juwan Zavala MD INTERROGATION REMOTE </90 D BOX PACKER REVIEW completed AICD Interrogation, Remote (Prof) Juwan Zavala MD INTERROGATION EVAL REMOTE </90 D 1/2/> LD CVDFB completed EKG Juwan Zavala MD completed SNOMED-CT: [id number] Current Medications Documented Juwan Zavala MD completed [...] Juwan Zavala MD INTERROGATION REMOTE </90 D BOX PACKER REVIEW completed AICD Interrogation, Remote (Prof) Juwan [...] with Dr. Zavala only completed EKG ulius Marlon doyle MD completed ePrescribe - Check t his box if eRx is used Jose Ma MD completed Schedule Followup ulius Cat avila MD fu with Dr Ma in 1 months f u with Dr Zavala in3 months completed Schedule Followup ulius Cat avila MD fu in 1 month completed EKG Jose doyle MD completed EKG Jose doyle MD completed EKG Juwan aZvala MD completed EKG Juwan Zavala MD completed EKG Juwan Zavala MD completed
--- OUTSIDE RECORDS SUMMARY | 2024-12-25 19:09 | XMS_ITS | Clinical Summary ---
Author Organization [facility] Address [address] [place] [address] Care Team Providers Care Application Coordinator Name Role Phone Madi Garcia MD Primary Care Provider [phone] Source Comments [facility],non-owned Affiliates and Associated Physician Practices is amultiple site organization consisting of ambulatory clinics and hospital sitesin [place], [place], [place] and [place]. This disclosure is being madepursuant to the Care Everywhere program and may not contain all information available regarding this patient. Last updated 18.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 Gender Identity Not on file Sexual Orientation Not on file Last Filed Vital Signs Vital Sign Reading Time Taken Comments Blood Pressure 114/80 07/16/2013 2:27 PM OFFICE WORKFORCE PLANNER Pulse 94 07/16/2013 2:27 PM OFFICE WORKFORCE PLANNER Temperature - - Respiratory Rate - - Oxygen Saturation 98% 07/16/2013 2:27 PM OFFICE WORKFORCE PLANNER Inhaled Oxygen Concentration - - Weight 66.2 kg (146 lb) 07/16/2013 2:27 PM OFFICE WORKFORCE PLANNER Height - - Body Mass Index - [...] complete this topic Insurance MEDICARE Care Teams Application Coordinator Relationship Specialty Start Date End Date Madi Garcia MD [address] [facility] [address] [place] [address] PCP - General Internal Medicine 07/16/13
--- OUTSIDE RECORDS SUMMARY | 2024-12-25 19:09 | XMS_ITS ---
Author Organization 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
--- OUTSIDE RECORDS SUMMARY | 2024-12-25 19:09 | XMS_ITS | Referral Summary ---
Author Organization [facility] Address [address] [place] [address] Care Team Providers Care Applique Cutter Name Role Phone Ambrose Reyes MD Unavailable [phone] Marcell Mckay MD Unavailable [phone] Ines Carpenter MD Unavailable Ines Carpenter MD Primary Care Provider Encounters Date Type Department Care Team Description 11/16/2024 1:30 PM CDT Lab [address] [address] 11/04/2024 Telephone [facility] Oncology [address] [facility] [address] [place] [address] Olayinka Vega CMA 11/04/2024 Documentation [facility] [address] [address] Darcy Sifuentes, ALLEN 11/04/2024 Telephone [facility] Floor [address] [place] [address] Darcy Sifuentes RN 11/03/2024 Orders Only [facility] Otolaryngology [facility] Advanced Medicine 11th [place] [address] [place] [address] Gris Davis Au.D. Dizziness (Primary Dx) 11/03/2024 Telephone [facility] Otolaryngology [address] [place] [address] Advanced Medicine 11th [place] [address] [place] [address] Gris Davis Au.D. 11/02/2024 11:45 AM CDT Clinical Support 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 [address] [place] [id number] Malignant neoplasm metastatic to lymph node of [...] (02/25/2019): Added automatically from request for surgery [id number] Melanoma of forearm, right 01/15/2019 Encounter for preprocedural cardiovascular exam[facility] 2018 Neck pain 07/21/2018 Atrial fibrillation 07/21/2018 Cardiomyopathy 07/21/2018 Degenerative disc disease, cervical 07/21/2018 Cervical stenosis of spinal canal 07/21/2018 Anxiety disorder, unspecified 04/18/2016 [facility] (current) use of anticoagulants 2015 Cardiomyopathy 05/09/2015 Peripheral vascular disease, unspecified 015 Peripheral vascular disease, unspecified 015 Unspecified atrial fibrillation 06/28/2014 Unspecified atrial flutter 06/28/2014 Acute stress reaction 06/07/2014 Acute stress reaction 06/07/2014 Coronary atherosclerosis 07/24/2013 CKD (chronic kidney disease) 07/17/2013 COPD (chronic obstructive pulmonary disease) Coronary atherosclerosis of [place] coronary francesca ry 07/17/2013 Encounter for other [...] on file 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 Gender Identity Not on file Sexual Orientation [...] on file Medical Devices Implanted Type Area Corporate Compliance Officer Device Identifier Shelf Expiration Date Model / Serial / Lot Icd ICD Left: Chest [employer] Procedures Procedure Name Priority Date/Time Associated [...] Ma MD LAB BLOOD ORDERABLES Final Result [facility] [address] Department [place] [address] * Differential, auto (11/16/2024 1:35 PM CDT) Neutrophil abs 4.43 1.50 - 6.50 K/cumm Imm gran abs 0.02 0.00 - 0.10 K/cumm [facility] Lymphocyte abs 1.31 0.80 - 3.30 K/cumm [facility] Monocyte abs 0.40 0.20 - 0.80 K/cumm [facility] Eosinophil abs 0.25 0.00 - 0.50 K/cumm [facility] Basophil abs 0.07 0.00 - 0.10 K/cumm [facility] Neutrophil pct 68.3 % [facility] Comment: Interpretive Data Percent cell count reference ranges are not reported, since discordance with absolute values may lead to misinterpretation of CBC data. Current Interpretive Data was last revised on 2017. Imm gran pct 0.3 % [facility] Comment: Interpretive Data Percent cell count reference ranges are not reported, since discordance with absolute values may lead to misinterpretation of CBC data. Current Interpretive Data was last revised on 2017. Lymphocyte pct 20.2 % [facility] Comment: Interpretive Data Percent cell count reference ranges are not reported, since discordance with absolute values may lead to misinterpretation of CBC data. Current Interpretive Data was last revised on 2017. Monocyte pct 6.2 % [facility] Comment: Interpretive Data Percent cell count reference ranges are not reported, since discordance with absolute values may lead to misinterpretation of CBC data. Current Interpretive Data was last revised on 2017. Eosinophil pct 3.9 % [facility] Comment: Interpretive Data Percent cell count reference ranges are not reported, since discordance with absolute values may lead to misinterpretation of CBC data. Current Interpretive Data was last revised on 2017. Basophil pct 1.1 % [facility] Comment: Interpretive Data Percent cell count reference ranges are not reported, since discordance with absolute values may lead to misinterpretation of CBC data. Current Interpretive Data was last revised on 2017. Blood 11/16/2024 1:35 PM CDT 11/16/2024 2:57 PM CDT us Jose Ma MD LAB BLOOD ORDERABLES Final Result [facility] [address] Department [place] [address] * (ABNORMAL) Pro B-type natriuretic peptide (11/16/2024 [...] BLOOD ORDERABLES Final Result Performing Organization Address [facility] Co de Phone Number [facility] [phone] [facility] [email or web address] * (ABNORMAL) CBC with auto differential (11/16/2024 1:35 PM CDT) WBC 6.48 3.80 - 9.90 K/cumm Hgb 13.9 13.0 - 17.5 g/dL [facility] Hct 43.3 38.9 - 50.3 % [facility] Plt 242 150 - 400 K/cumm [facility] MPV 9.9 9.1 - 12.3 fL [facility] RBC 4.72 4.30 - 5.80 M/cumm [facility] MCV 91.7 81.3 - 96.4 fL [facility] MCH 29.4 27.1 - 33.3 pg [facility] MCHC 32.1(L) 32.3 - 35.7 g/dL [facility] RDW CV 13.3 11.1 - 14.9 % [facility] RDW SD 45.1 35.7 - 48.1 fL [facility] NRBC abs 0.00 0.00 - 0.01 K/cumm [facility] Blood 11/16/2024 1:35 PM CDT 11/16/2024 2:57 PM CDT Jose Ma MD LAB BLOOD ORDERABLES Final Result Performing Organization Address [facility] Co de Phone Number [address] [place] [phone] [email or web address] [address] * Cortisol (11/16/2024 1:35 PM CDT) Cortisol [...] LAB BLOOD ORDERABLES Final Result [facility] [address] Department [place] [address] * (ABNORMAL) Lipid panel (11/16/2024 1:35 PM [...] LAB BLOOD ORDERABLES Final Result [facility] [address] Department [place] [address] * (ABNORMAL) Comprehensive metabolic panel (11/16/2024 1:35 [...] LAB BLOOD ORDERABLES Final Result [place] [address] Department [place] [address] * (ABNORMAL) eGFR (11/02/2024 11:47 AM CDT) Pathologist [facility] eGFR 55(L) >=60 mL/min/1. 73 m2 Comment: [...] CDT 11/02/2024 11:57 AM CDT Sadiq Sim SWEATBAND CUTTING MACHINE OPERATOR LAB BLOOD ORDERABLES Cami l Result [facility] [address] Department [place] [address] * Differential, auto (11/02/2024 11:47 AM CDT) Pathologist [facility] Neutrophil abs 5.9 1.5 - 6.5 K/cumm Comment:Testing performed by : [facility], [address] [place] [phone] Lymphocyte abs 1.3 0.8 - 3.3 K/cumm [facility] Comment:Testing performed by : [facility], [address] [place] [phone] Monocyte abs 0.5 0.2 - 0.8 K/cumm [facility] Comment:Testing performed by : [facility], [address] [place] [phone] Eosinophil abs 0.2 0.0 - 0.5 K/cumm [facility] Comment:Testing performed by : [facility], [address] [place] [phone] Basophil abs 0.1 0.0 - 0.1 K/cumm [facility] Comment:Testing performed by : [facility], [address] [place] [phone] Neutrophil pct 73.6 % [facility] Comment: Interpretive Data Percent cell count reference ranges are not reported, since discordance with absolute values may lead to misinterpretation of CBC data. Current Interpretive Data was last revised on 2017. Testing performed by: [facility], [address] [place] [phone] Lymphocyte pct 16.8 % [facility] Comment: Interpretive Data Percent cell count reference ranges are not reported, since discordance with absolute values may lead to misinterpretation of CBC data. Current Interpretive Data was last revised on 2017. Testing performed by: [facility], [address] [place] [phone] Monocyte pct 6.1 % [facility] Comment: Interpretive Data Percent cell count reference ranges are not reported, since discordance with absolute values may lead to misinterpretation of CBC data. Current Interpretive Data was last revised on 2017. Testing performed by: [facility], [address] [place] [phone] Eosinophil pct 2.2 % [facility] Comment: Interpretive Data Percent cell count reference ranges are not reported, since discordance with absolute values may lead to misinterpretation of CBC data. Current Interpretive Data was last revised on 2017. Testing performed by: [facility], [address] [place] [phone] Basophil pct 1.2 % [facility] Comment: Interpretive Data Percent cell count reference ranges are not reported, since discordance with absolute values may lead to misinterpretation of CBC data. Current Interpretive Data was last revised on 2017. Testing performed by: [facility], [address] [place] [phone] Blood 11/02/2024 11:4 7 AM CDT 11/02/2024 11:53 AM CDT Sadiq Sim NP LAB BLOOD ORDERABLES Cami l Result Performing Organization Address [facility] Co de Phone Number [facility] Department [place] [address] * Thyroid Function [place] (11/02/2024 11:47 AM CDT) Pathologist [facility] TSH 2.85 0.30 - 4.20 mcIUnit/mL Blood 11/02/2024 11:4 7 AM CDT 11/02/2024 11:57 AM CDT Sadiq Sim SWEATBAND CUTTING MACHINE OPERATOR LAB BLOOD ORDERABLES Cami l Result Performing Organization Address [facility] de Phone Number [facility] [place] [address] * CBC with auto differential (11/02/2024 11:47 AM CDT) WBC 8.0 3.8 - 9.9 K/cumm Comment:Testing performed by : [facility], [address] [place] [phone] Hgb 14.3 13.0 - 17.5 g/dL [facility] Comment:Testing performed by : [facility], [address] [place] [phone] Hct 43.8 38.9 - 50.3 % [facility] Comment:Testing performed by : [facility], [address] [place] [address] Plt 295 150 - 400 K/cumm [facility] Comment:Testing performed by : [facility], [address] [place] [address] MPV 7.8 6.8 - 10.4 fL [facility] Comment:Testing performed by : [facility], [address] [place] [address] RBC 4.89 4.30 - 5.80 M/cumm [facility] Comment:Testing performed by : [facility], [address] [place] [address] MCV 89.6 81.3 - 96.4 fL [facility] Comment:Testing performed by : [facility], [address] [place] [address] MCH 29.3 27.1 - 33.3 pg [facility] Comment:Testing performed by : [facility], [address] [place] [address] MCHC 32.7 32.3 - 35.7 g/dL [facility] Comment:Testing performed by : [facility], [address] [place] [address] RDW CV 14.5 11.1 - 14.9 % [facility] Comment:Testing performed by : [facility], [address] [place] [address] NRBC abs 0.00 0.00 - 0.01 K/cumm [facility] Comment:Testing performed by : [facility], [address] [place] [address] Blood 11/02/2024 11:4 7 AM CDT 11/02/2024 11:53 AM CDT us Sadiq Sim SWEATBAND CUTTING MACHINE OPERATOR LAB BLOOD ORDERABLES Cami l Result [facility] [address] Department [place] [address] * (ABNORMAL) Comprehensive metabolic panel (11/02/2024 11:47 AM CDT) Sodium 137 135 - 145 mmol/L Potassium, pl 5.3(H) 3.3 - 4.9 mmol/L [facility] Comment:Hemolyzed; Potassium value may be falsely elevated by as much as 0.6-1.0 mmol/L. Suggest redraw and reanalysis. Chloride 98 97 - 110 mmol/L [facility] CO2 28 22 - 32 mmol/L [facility] Anion gap 11 2 - 15 mmol/L [facility] BUN 28(H) 6 - 25 mg/dL [facility] Creatinine 1.33(H) 0.80 - 1.30 mg/dL [facility] Glucose 93 70 - 199 mg/dL [facility] Comment: Interpretive Data Fasting glucose >/= [...] 2022. Calcium 9.5 8.5 - 10.3 mg/dL [facility] Bilirubin, total 1.2 0.1 - 1.2 mg/dL [facility] Protein, pl 8.0 6.5 - 8.5 g/dL [facility] Albumin 4.2 3.5 - 5.0 g/dL [facility] Alk phos 35(L) 40 - 130 Units/L [facility] ALT 8 7 - 55 Units/L [facility] AST 26 10 - 50 Units/L [facility] Comment:Hemolyzed; result ma y be falsely elevated Blood 11/02/2024 11:4 7 AM CDT 11/02/2024 11:57 AM CDT us Sadiq Sim NP LAB BLOOD ORDERABLES Cami loving Result [facility] [address] [place] [address] * CT Chest Abdomen Pelvis W Contrast [...] by: Jose Luis Bernard M.D. Sadiq Sim SWEATBAND CUTTING MACHINE OPERATOR IMG CT PROCEDURES Final R esult * (ABNORMAL) POCT creatinine (11/02/2024 10:41 AM CDT) Creatinine POC 1.5(H) 0.8 - 1.3 mg/dL Blood 11/02/2024 10:4 1 AM CDT 11/02/2024 10:41 AM CDT Brian Min MD LAB POCT ORDERABLES - DEVICE F inal Result [facility] [address] [place] [address] from Last 3 Months Insurance MEDICARE ADVANTAGE Advance Directives For more information, please contact: [phone] * Full Code (Latest Code Status on File) Date Activated Date Inactivated Comments 03/22/2019 2:32 AM 03/25/2019 7:04 PM * Full Code Date Activated Date Inactivated Comments 07/20/2018 8:18 PM 07/23/2018 4:42 PM Care Teams Applique Cutter Relationship Specialty Start Date End Date Ines Carpenter MD [address] [facility] [address] [place] [address] PCP - General Internal Medicine 06/04/22 Ambrose Reyes MD Referring Physician Neurosurgery 07/23/18 Marcell Mckay MD [address] [place] [address] Consulting Physician Plastic Surgery 03/11/19 Ines Carpenter MD [address] [facility] [address] [place] [address] Consulting Physician Internal Medicine 06/04/22
--- OUTSIDE RECORDS SUMMARY | 2024-12-25 19:09 | XMS_ITS | Clinical Summary ---
Author Organization [facility] Address [address] [place] [address] Care Team Providers Care It Service Manager Name Role Phone Ambrose Reyes MD Unavailable [phone] Marcell Mckay MD Unavailable Ines Carpenter MD Unavailable Ines Carpenter MD Primary Care Provider [phone] Allergies Active Allergy Reactions Criticality Noted Date [...] (02/25/2019): Added automatically from request for surgery [id number] Melanoma of forearm, right 01/15/2019 Encounter for preprocedural cardiovascular exami [facility] 2018 Neck pain 07/21/2018 Atrial fibrillation 07/21/2018 Cardiomyopathy 07/21/2018 Degenerative disc disease, cervical 07/21/2018 Cervical stenosis of spinal canal 07/21/2018 Anxiety disorder, unspecified 04/18/2016 intermediate (current) use of anticoagulants 2015 Cardiomyopathy 05/09/2015 Peripheral vascular disease, unspecified 015 Peripheral vascular disease, unspecified 015 Unspecified atrial fibrillation 06/28/2014 Unspecified atrial flutter 06/28/2014 Acute stress reaction 06/07/2014 Acute stress reaction 06/07/2014 Coronary atherosclerosis 07/24/2013 CKD (chronic kidney disease) 07/17/2013 COPD (chronic obstructive pulmonary disease) Coronary atherosclerosis of [place] coronary francesca ry 07/17/2013 Encounter for other specified cardiac device in situ 07/17/2013 Overview (02/25/2019): Overview: LV (left ventricular) mural thrombus 07/17/2013 CHF (congestive heart failure) 07/16/2013 Ischemic cardiomyopathy 07/16/2013 Benign essential hypertension 08/05/1961 Encounters Date Type Department Care Team Description 11/16/2024 1:30 PM CDT Lab [address] [address] 11/04/2024 Telephone [facility] [address] [place] [address] Olayinka Vega CMA 11/04/2024 Documentation [facility] [address] [place] [phone] Darcy Sifuentes RN 11/04/2024 Telephone [facility] [address] [place] [address] 6 [place] [address] Darcy Sifuentes RN 11/03/2024 Orders Only [facility] [address] [place] [address] Advanced Medicine 11th [place] [address] [place] [address] Gris Davis Au.D. Dizziness (Primary Dx) 11/03/2024 Telephone [facility] [address] [place] [address] Advanced Medicine 11th [place] [address] [place] [address] Gris Davis Au.D. 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); Melanoma of forearm, right (HCC) 11/02/2024 11:15 AM CDT Lab [facility] [address] [facility] 6 [place] [address] 11/02/2024 10:10 AM CDT - 11/02/2024 11:59 PM CDT Hospital Encounter [facility] [address] [place] [address] Malignant neoplasm metastatic to lymph node of [...] History Medical History Date Comments Hypertension Hyperlipidemia NC (myocardial infarction) (HCC) Heart disease Heart attack [...] on file Legal 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 Gender Identity Not on file Sexual Orientation [...] history exists Medical Devices Implanted Type Area Pension Fund Manager Device Identifier Shelf Expiration Date Model / Serial / Lot Icd ICD Left: Chest [place] [employer] Procedures Procedure Name Priority Date/Time Associated [...] LAB BLOOD ORDERABLES Final Result NO BOATENG [id number] Fauzia Jones [place] [address] * Differential, auto (11/16/2024 1:35 PM CDT) Neutrophil abs 4.43 1.50 - 6.50 K/cumm Imm gran abs 0.02 0.00 - 0.10 K/cumm [facility] Lymphocyte abs 1.31 0.80 - 3.30 K/cumm [facility] Monocyte abs 0.40 0.20 - 0.80 K/cumm [facility] Eosinophil abs 0.25 0.00 - 0.50 K/cumm [facility] Basophil abs 0.07 0.00 - 0.10 K/cumm [facility] Neutrophil pct 68.3 % [facility] Comment: Interpretive Data Percent cell count reference ranges are not reported, since discordance with absolute values may lead to misinterpretation of CBC data. Current Interpretive Data was last revised on 2017. Imm gran pct 0.3 % [facility] Comment: Interpretive Data Percent cell count reference ranges are not reported, since discordance with absolute values may lead to misinterpretation of CBC data. Current Interpretive Data was last revised on 2017. Lymphocyte pct 20.2 % [facility] Comment: Interpretive Data Percent cell count reference ranges are not reported, since discordance with absolute values may lead to misinterpretation of CBC data. Current Interpretive Data was last revised on 2017. Monocyte pct 6.2 % [facility] Comment: Interpretive Data Percent cell count reference ranges are not reported, since discordance with absolute values may lead to misinterpretation of CBC data. Current Interpretive Data was last revised on 2017. Eosinophil pct 3.9 % [facility] Comment: Interpretive Data Percent cell count reference ranges are not reported, since discordance with absolute values may lead to misinterpretation of CBC data. Current Interpretive Data was last revised on 2017. Basophil pct 1.1 % [facility] Comment: Interpretive Data Percent cell count reference ranges are not reported, since discordance with absolute values may lead to misinterpretation of CBC data. Current Interpretive Data was last revised on 2017. Blood 11/16/2024 1:35 PM CDT 11/16/2024 2:57 PM CDT us Jose Ma MD LAB BLOOD ORDERABLES Final Result GEJAYANT [address] Fauzia Jones [place] [address] * (ABNORMAL) Pro B-type natriuretic peptide (11/16/2024 [...] MD [place] [address] F[address]zia Jones [place] [address] * (ABNORMAL) CBC with auto differential (11/16/2024 1:35 PM CDT) Pathologist [facility] WBC 6.48 3.80 - 9.90 K/cumm Hgb [...] BLOOD ORDERABLES Final Result Performing Organization Address [facility] Co de Phone Number NO BOATENG [address] [place] [address] * Cortisol (11/16/2024 1:35 PM CDT) [facility] Cortisol 8.5 4.8 - 19.5 mcg/dl Comment: Interpretive Data Normal Range: 4.8 - 19.5 mcg/dL; Evening: Half of morning value. This analyte undergoes marked diurnal variation. Ranges indicated apply to morning specimens. Current interpretive data was last revised 2018. Blood 11/16/2024 1:35 PM CDT 11/16/2024 2:57 PM CDT Jose Ma MD LAB BLOOD ORDERABLES Final Result Performing Organization Address City/[facility]/ZIP Co de Phone Number NO BOATENG [address] Fauzia Jones Department [address] [place], [place] [id number] * (ABNORMAL) Lipid panel (11/16/2024 1:35 PM [...] MD [place] [address] Fauzia Jones [place] [address] * (ABNORMAL) Comprehensive metabolic panel (11/16/2024 [...] MD LAB [place] [address] Fauzia Jones [place] [address] * (ABNORMAL) eGFR (11/02/2024 11:47 AM CDT) [...] NP LAB BLOOD ORDERABLES Cami loving Result [facility] [place] [address] * Differential, auto (11/02/2024 11:47 AM CDT) Neutrophil abs 5.9 1.5 - 6.5 K/cumm Comment:Testing performed by : [facility], [address] [place], [place] [phone] Lymphocyte abs 1.3 0.8 - 3.3 K/cumm NO [facility] Comment:Testing performed by : [facility], [address] [place], [place] [phone] Monocyte abs 0.5 0.2 - 0.8 K/cumm [facility] Comment:Testing performed by : [facility], [address] [place] [phone] Eosinophil abs 0.2 0.0 - 0.5 K/cumm [facility] Comment:Testing performed by : [facility], [address] [place] [phone] Basophil abs 0.1 0.0 - 0.1 K/cumm [facility] Comment:Testing performed by : [facility], [address] [place] [phone] Neutrophil pct 73.6 % [facility] Comment: Interpretive Data Percent cell count reference ranges are not reported, since discordance with absolute values may lead to misinterpretation of CBC data. Current Interpretive Data was last revised on 2017. Testing performed by: [facility], [address] [place] [phone] Lymphocyte pct 16.8 % [facility] Comment: Interpretive Data Percent cell count reference ranges are not reported, since discordance with absolute values may lead to misinterpretation of CBC data. Current Interpretive Data was last revised on 2017. Testing performed by: [facility], [address] [place] [phone] Monocyte pct 6.1 % [facility] Comment: Interpretive Data Percent cell count reference ranges are not reported, since discordance with absolute values may lead to misinterpretation of CBC data. Current Interpretive Data was last revised on 2017. Testing performed by: [facility], [address] [place] [phone] Eosinophil pct 2.2 % [facility] Comment: Interpretive Data Percent cell count reference ranges are not reported, since discordance with absolute values may lead to misinterpretation of CBC data. Current Interpretive Data was last revised on 2017. Testing performed by: [facility], [address] [place] [phone] Basophil pct 1.2 % [facility] Comment: Interpretive Data Percent cell count reference ranges are not reported, since discordance with absolute values may lead to misinterpretation of CBC data. Current Interpretive Data was last revised on 2017. Testing performed by: [facility], [address] [place] [phone] Blood 11/02/2024 11:4 7 AM CDT 11/02/2024 11:53 AM CDT us Sadiq Sim NP LAB BLOOD ORDERABLES Cami l Result NO [facility] [place] [address] * Thyroid Function [place] (11/02/2024 11:47 AM CDT) Pathologist [facility] TSH 2.85 0.30 - 4.20 mcIUnit/mL Blood 11/02/2024 11:4 7 AM CDT 11/02/2024 11:57 AM CDT Sadiq Sim ASSISTANT STORE MANAGER SALES LAB BLOOD ORDERABLES Cami l Result [facility] [place] [address] * CBC with auto differential (11/02/2024 11:47 AM CDT) [facility] WBC 8.0 3.8 - 9.9 K/cumm Comment:Testing performed by : [facility], [address] [place] [address] Hgb 14.3 13.0 - 17.5 g/dL NO [facility] Comment:Testing performed by : [facility], [address] [place] [address] Hct 43.8 38.9 - 50.3 % NO BJ Comment:Testing performed by : [facility], [address] [place] [address] Plt 295 150 - 400 K/cumm NO BJ Comment:Testing performed by : [facility], [address] [place] [address] MPV 7.8 6.8 - 10.4 fL NO BJ Comment:Testing performed by : [facility], [address] [place] [address] RBC 4.89 4.30 - 5.80 M/cumm NO BJ Comment:Testing performed by : [facility], [address] [place] [address] MCV 89.6 81.3 - 96.4 fL NO [facility] Comment:Testing performed by : [facility], [address] [place], [place] [phone] MCH 29.3 27.1 - 33.3 pg NO [facility] Comment:Testing performed by : [facility], [address] [place], [place] [phone] MCHC 32.7 32.3 - 35.7 g/dL NO [facility] Comment:Testing performed by : [facility], [address] [place], [place] [phone] RDW CV 14.5 11.1 - 14.9 % NO [facility] Comment:Testing performed by : [facility], [address] [place], [place] [phone] NRBC abs 0.00 0.00 - 0.01 K/cumm NO [facility] Comment:Testing performed by : [facility], [address] [place], [place] [phone] Blood 11/02/2024 11:4 7 AM CDT 11/02/2024 11:53 AM CDT us Sadiq Sim NP LAB BLOOD ORDERABLES Cami loving Result [facility] [place] [address] * (ABNORMAL) Comprehensive metabolic panel (11/02/2024 11:47 AM CDT) Sodium 137 135 - 145 mmol/L Potassium, pl 5.3(H) 3.3 - 4.9 mmol/L [facility] Comment:Hemolyzed; Potassium value may be falsely elevated by as much as 0.6-1.0 mmol/L. Suggest redraw and reanalysis. Chloride 98 97 - 110 mmol/L [facility] CO2 28 22 - 32 mmol/L [facility] Anion gap 11 2 - 15 mmol/L [facility] BUN 28(H) 6 - 25 mg/dL [facility] Creatinine 1.33(H) 0.80 - 1.30 mg/dL [facility] Glucose 93 70 - 199 mg/dL [facility] Comment: Interpretive Data Fasting glucose >/= [...] 2022. Calcium 9.5 8.5 - 10.3 mg/dL [facility] Bilirubin, total 1.2 0.1 - 1.2 mg/dL [facility] Protein, pl 8.0 6.5 - 8.5 g/dL [facility] Albumin 4.2 3.5 - 5.0 g/dL [facility] Alk phos 35(L) 40 - 130 Units/L [facility] ALT 8 7 - 55 Units/L [facility] AST 26 10 - 50 Units/L [facility] Comment:Hemolyzed; result ma y be falsely elevated Blood 11/02/2024 11:4 7 AM CDT 11/02/2024 11:57 AM CDT Sadiq Sim NP LAB BLOOD ORDERABLES Cami l Result Performing Organization Address City/State/[facility] Co de Phone Number [facility] [place] [address] * CT Chest Abdomen Pelvis W Contrast [...] ORDERABLES - DEVICE F inal Result NO [facility] [place] [address] from Last 3 Months Insurance [facility] [employer] [facility] Address[place] [address] [address] [place] [phone] R HMO REF [facility] Address: [address] [place] [phone] MEDICARE ADVANTAGE [facility] Address: [address] [address] [place] [phone] Advance Directives For more information, please contact: [phone] * Full Code (Latest Code Status on File) Date Activated Date Inactivated Comments 03/22/2019 2:32 AM 03/25/2019 7:04 PM * Full Code Date Activated Date Inactivated Comments 07/20/2018 8:18 PM 07/23/2018 4:42 PM Care Teams It Service Manager Relationship Specialty Start Date End Date Ines Carpenter MD [address] [facility] [address] [place] [address] PCP - General Internal Medicine 06/04/22 Ambrose Reyes MD Referring Physician Neurosurgery 07/23/18 Marcell Mckay MD [address] [place] [address] Consulting Physician Plastic Surgery 03/11/19 Ines Carpenter MD [address] [facility] [address] [place] [address] Consulting Physician Internal Medicine 06/04/22
[2024-12-25 19:21] VITALS: BP 116/72; PULSE 97; RESP 20; TEMP 36.6; O2SAT 92
[2024-12-25 19:25] LABS: Basophils Absolute Auto 0.1 K/mm3 (0.0-0.1); Basophils Percent Auto 0.9 % (0.2-1.2); Eosinophils Absolute Auto 0.2 K/mm3 (0-0.3); Eosinophils Percent Auto 2.4 % (0-4.4); Hematocrit 44.9 % (42.0-52.0); Hemoglobin 14.4 g/dL (14.0-18.0); Immature Granulocyte Absolute 0.02 K/mm3 (0.00-0.031); Immature Granulocyte Percent A 0.3 % (0-0.5); Lymphocytes Absolute Auto 1.61 K/mm3 (0.9-3.2); Lymphocytes Percent Auto 20.3 % (18.3-44.2); Mean Corpuscular HGB Conc 32.1 g/dl (32-36); Mean Corpuscular Volume 90.3 fl (80-100); Mean Platelet Volume 9.2 fl (7.4-10.4); Monocytes Absolute Auto 0.6 K/mm3 (0.1-0.6); Monocytes Percent Auto 7.8 % (2.6-8.5); Neutrophils Absolute Auto 5.4 K/mm3 (1.3-6.7); Neutrophils Percent Auto 68.3 % (45.5-73.1); Platelet Count Result 297 k/mm3 (150-375); Red Blood Count 4.97 M/mm3 (4.6-6.20); White Blood Count 7.9 K/mm3 (4.5-10.0)
[2024-12-25 19:35] LABS: Alanine Aminotransferase 17 U/L (6-50); Albumin Level 4.6 g/dL (3.5-5.1); Alkaline Phosphatase 39 U/L (38-126); Anion Gap 9 mmol/L (4-12); Aspartate Amino Transferase 29 U/L (17-59); Bilirubin,Total 1.4 mg/dL (0.2-1.3); Blood Urea Nitrogen 40 mg/dL (9-20); Calcium 9.3 mg/dL (8.4-10.2); Carbon Dioxide 29 mmol/L (22-30); Chloride 99 mmol/L (98-107); Estimated CRCL calculation 34 ml/min; Estimated Glomerular Filt Rate 42; Glucose 127 mg/dL (65-110); Lipase 181 U/L (23-300); Potassium 4.1 mmol/L (3.4-5.0); Sodium 137 mmol/L (137-145)
[2024-12-25 19:38] LABS: Prothrombin Time 14.1 Seconds (11.1-14.7)
[2024-12-25 19:39] LABS: Partial Thromboplastin Time 28.2 Seconds (22.3-36.8)
[2024-12-25 19:47] LABS: Troponin I < 0.012 ng/mL (0.000-0.034)
--- OUTSIDE RECORDS SUMMARY | 2024-12-25 20:08 | XMS_ITS | Clinical Summary ---
Author Organization [facility] Address [address] [place] [address] Care Team Providers Care Wirer Helper Name Role Phone Ambrose Reyes MD Unavailable [phone] Marcell Mckay MD Unavailable Ines Carpenter MD Unavailable Ines Carpenter MD Primary Care Provider [phone] Allergies Active Allergy Reactions Criticality Noted Date [...] (02/25/2019): Added automatically from request for surgery [id number] Melanoma of forearm, right 01/15/2019 Encounter for preprocedural cardiovascular exami [facility] 2018 Neck pain 07/21/2018 Atrial fibrillation 07/21/2018 Cardiomyopathy 07/21/2018 Degenerative disc disease, cervical 07/21/2018 Cervical stenosis of spinal canal 07/21/2018 Anxiety disorder, unspecified 04/18/2016 jail (current) use of anticoagulants 2015 Cardiomyopathy 05/09/2015 Peripheral vascular disease, unspecified 015 Peripheral vascular disease, unspecified 015 Unspecified atrial fibrillation 06/28/2014 Unspecified atrial flutter 06/28/2014 Acute stress reaction 06/07/2014 Acute stress reaction 06/07/2014 Coronary atherosclerosis 07/24/2013 CKD (chronic kidney disease) 07/17/2013 COPD (chronic obstructive pulmonary disease) Coronary atherosclerosis of [place] coronary francesca ry 07/17/2013 Encounter for other specified cardiac device in situ 07/17/2013 Overview (02/25/2019): Overview: LV (left ventricular) mural thrombus 07/17/2013 CHF (congestive heart failure) 07/16/2013 Ischemic cardiomyopathy 07/16/2013 Benign essential hypertension 08/05/1961 Encounters Date Type Department Care Team Description 11/16/2024 1:30 PM CDT Lab [address] [address] 11/04/2024 Telephone [facility] Oncology [address] [facility] [address] [place] [address] Olayinka Vega CMA 11/04/2024 Documentation [facility] Oncology [address] [place] [phone] Darcy Sifuentes RN 11/04/2024 Telephone [facility] Oncology [address] [place] [address] [address] [place] [address] Darcy Sifuentes RN 11/03/2024 Orders Only [facility] Otolaryngology [address] [place] [address] Advanced Medicine 11th [place] [address] [place] [address] Gris Davis Au.D. Dizziness (Primary Dx) 11/03/2024 Telephone [facility] Otolaryngology [address] [place] [address] Advanced Medicine 11th [place] [address] [place] [address] Gris Davis Au.D. 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); Melanoma of forearm, right (HCC) 11/02/2024 11:15 AM CDT Lab [facility] Lab [address] [facility] 6 [place] [address] 11/02/2024 10:10 AM CDT - 11/02/2024 11:59 PM CDT Hospital Encounter [facility] [address] [place] [address] Malignant neoplasm metastatic to lymph node of [...] History Medical History Date Comments Hypertension Hyperlipidemia CT (myocardial infarction) (HCC) Heart disease Heart attack [...] on file Legal Sex Male 8:38 PM 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 Gender Identity Not on file Sexual Orientation [...] history exists Medical Devices 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 Shelf Expiration Date Model / Serial / Lot Icd ICD Left: Chest [place] [employer] Procedures Procedure Name Priority Date/Time Associated [...] LAB BLOOD ORDERABLES Final Result NO BOATENG [id number] Fauzia Jones [place] [address] * Differential, auto (11/16/2024 1:35 PM CDT) Neutrophil abs 4.43 1.50 - 6.50 K/cumm Imm gran abs 0.02 0.00 - 0.10 K/cumm [facility] Lymphocyte abs 1.31 0.80 - 3.30 K/cumm [facility] Monocyte abs 0.40 0.20 - 0.80 K/cumm [facility] Eosinophil abs 0.25 0.00 - 0.50 K/cumm [facility] Basophil abs 0.07 0.00 - 0.10 K/cumm [facility] Neutrophil pct 68.3 % [facility] Comment: Interpretive Data Percent cell count reference ranges are not reported, since discordance with absolute values may lead to misinterpretation of CBC data. Current Interpretive Data was last revised on 2017. Imm gran pct 0.3 % [facility] Comment: Interpretive Data Percent cell count reference ranges are not reported, since discordance with absolute values may lead to misinterpretation of CBC data. Current Interpretive Data was last revised on 2017. Lymphocyte pct 20.2 % [facility] Comment: Interpretive Data Percent cell count reference ranges are not reported, since discordance with absolute values may lead to misinterpretation of CBC data. Current Interpretive Data was last revised on 2017. Monocyte pct 6.2 % [facility] Comment: Interpretive Data Percent cell count reference ranges are not reported, since discordance with absolute values may lead to misinterpretation of CBC data. Current Interpretive Data was last revised on 2017. Eosinophil pct 3.9 % [facility] Comment: Interpretive Data Percent cell count reference ranges are not reported, since discordance with absolute values may lead to misinterpretation of CBC data. Current Interpretive Data was last revised on 2017. Basophil pct 1.1 % [facility] Comment: Interpretive Data Percent cell count reference ranges are not reported, since discordance with absolute values may lead to misinterpretation of CBC data. Current Interpretive Data was last revised on 2017. Blood 11/16/2024 1:35 PM CDT 11/16/2024 2:57 PM CDT us Jose Ma MD LAB BLOOD ORDERABLES Final Result GEJAYANT [address] Fauzia Jones Department [place] [address] * (ABNORMAL) Pro B-type natriuretic peptide (11/16/2024 [...] MD [place] [address] Fauzia Jones [place] [address] * (ABNORMAL) CBC with auto differential (11/16/2024 1:35 PM CDT) Pathologist [facility] WBC 6.48 3.80 - 9.90 K/cumm Hgb [...] BLOOD ORDERABLES Final Result Performing Organization Address [facility] Co de Phone Number NO BOATENG [id number] Fauzia [address] [employer] [place] [address] * Cortisol (11/16/2024 1:35 PM CDT) [facility] Cortisol 8.5 4.8 - 19.5 mcg/dl Comment: Interpretive Data Normal Range: 4.8 - 19.5 mcg/dL; Evening: Half of morning value. This analyte undergoes marked diurnal variation. Ranges indicated apply to morning specimens. Current interpretive data was last revised 2018. Blood 11/16/2024 1:35 PM CDT 11/16/2024 2:57 PM CDT Jose Ma MD LAB BLOOD ORDERABLES Final Result Performing Organization Address City/[facility]/ZIP Co de Phone Number NO BOATENG [id number] Fauzia Jones Department [place], [place] [id number] * (ABNORMAL) Lipid panel (11/16/2024 1:35 PM [...] MD [place] [address] Fauzia Jones Department [place] [address] * (ABNORMAL) Comprehensive metabolic panel (11/16/2024 [...] MD LAB [place] [address] Fauzia Jones [place] [address] * (ABNORMAL) eGFR (11/02/2024 11:47 AM CDT) [...] NP LAB BLOOD ORDERABLES Cami loving Result [facility] [place] [address] * Differential, auto (11/02/2024 11:47 AM CDT) Neutrophil abs 5.9 1.5 - 6.5 K/cumm Comment:Testing performed by : [facility], [address] [place], [place] [phone] Lymphocyte abs 1.3 0.8 - 3.3 K/cumm NO [facility] Comment:Testing performed by : [facility], [address] [place], [place] [phone] Monocyte abs 0.5 0.2 - 0.8 K/cumm CERJAYANT [facility] Comment:Testing performed by : [facility], [address] [place] [phone] Eosinophil abs 0.2 0.0 - 0.5 K/cumm CERJAYANT [facility] Comment:Testing performed by : [facility], [address] [place] [phone] Basophil abs 0.1 0.0 - 0.1 K/cumm [facility]AYANT [facility] Comment:Testing performed by : [facility], [address] [place] [phone] Neutrophil pct 73.6 % [facility] Comment: Interpretive Data Percent cell count reference ranges are not reported, since discordance with absolute values may lead to misinterpretation of CBC data. Current Interpretive Data was last revised on 2017. Testing performed by: [facility], [address] [place] [phone] Lymphocyte pct 16.8 % [facility] Comment: Interpretive Data Percent cell count reference ranges are not reported, since discordance with absolute values may lead to misinterpretation of CBC data. Current Interpretive Data was last revised on 2017. Testing performed by: [facility], [address] [place] [phone] Monocyte pct 6.1 % [facility] Comment: Interpretive Data Percent cell count reference ranges are not reported, since discordance with absolute values may lead to misinterpretation of CBC data. Current Interpretive Data was last revised on 2017. Testing performed by: [facility], [address] [place] [phone] Eosinophil pct 2.2 % [facility] Comment: Interpretive Data Percent cell count reference ranges are not reported, since discordance with absolute values may lead to misinterpretation of CBC data. Current Interpretive Data was last revised on 2017. Testing performed by: [facility], [address] [place] [phone] Basophil pct 1.2 % [facility] Comment: Interpretive Data Percent cell count reference ranges are not reported, since discordance with absolute values may lead to misinterpretation of CBC data. Current Interpretive Data was last revised on 2017. Testing performed by: [facility], [address] [place] [phone] Blood 11/02/2024 11:4 7 AM CDT 11/02/2024 11:53 AM CDT us Sadiq Sim NP LAB BLOOD ORDERABLES Cami l Result NO [facility] [place] [address] * Thyroid Function Clarke (11/02/2024 11:47 AM CDT) Pathologist [facility] TSH 2.85 0.30 - 4.20 mcIUnit/mL Blood 11/02/2024 11:4 7 AM CDT 11/02/2024 11:57 AM CDT Sadiq Sim SURFACE MINER LAB BLOOD ORDERABLES Cami l Result [facility] [place] [address] * CBC with auto differential (11/02/2024 11:47 AM CDT) [facility] WBC 8.0 3.8 - 9.9 K/cumm Comment:Testing performed by : [facility], [address] [place] [address] Hgb 14.3 13.0 - 17.5 g/dL NO [facility] Comment:Testing performed by : [facility], [address] [place] [address] Hct 43.8 38.9 - 50.3 % NO BJ Comment:Testing performed by : [facility], [address] [place] [address] Plt 295 150 - 400 K/cumm NO BJ Comment:Testing performed by : [facility], [address] [place] [address] MPV 7.8 6.8 - 10.4 fL NO BJ Comment:Testing performed by : [facility], [address] [place] [address] RBC 4.89 4.30 - 5.80 M/cumm NO BJ Comment:Testing performed by : [facility], [address] [place] [address] MCV 89.6 81.3 - 96.4 fL NO [facility]ER Comment:Testing performed by : [facility], [address] [place], [place] [phone] MCH 29.3 27.1 - 33.3 pg NO [facility] Comment:Testing performed by : [facility], [address] [place], [place] [phone] MCHC 32.7 32.3 - 35.7 g/dL NO [facility] Comment:Testing performed by : [facility], [address] [place], [place] [phone] RDW CV 14.5 11.1 - 14.9 % NO [facility] Comment:Testing performed by : [facility], [address] [place], [place] [phone] NRBC abs 0.00 0.00 - 0.01 K/cumm NO [facility] Comment:Testing performed by : [facility], [address] [place], [place] [phone] Blood 11/02/2024 11:4 7 AM CDT 11/02/2024 11:53 AM CDT us Sadiq Sim NP LAB BLOOD ORDERABLES Cami loving Result [facility] [place] [address] * (ABNORMAL) Comprehensive metabolic panel (11/02/2024 11:47 AM CDT) Sodium 137 135 - 145 mmol/L Potassium, pl 5.3(H) 3.3 - 4.9 mmol/L [facility] Comment:Hemolyzed; Potassium value may be falsely elevated by as much as 0.6-1.0 mmol/L. Suggest redraw and reanalysis. Chloride 98 97 - 110 mmol/L [facility] CO2 28 22 - 32 mmol/L [facility] Anion gap 11 2 - 15 mmol/L [facility] BUN 28(H) 6 - 25 mg/dL [facility] Creatinine 1.33(H) 0.80 - 1.30 mg/dL [facility] Glucose 93 70 - 199 mg/dL [facility] Comment: Interpretive Data Fasting glucose >/= [...] 2022. Calcium 9.5 8.5 - 10.3 mg/dL [facility] Bilirubin, total 1.2 0.1 - 1.2 mg/dL [facility] Protein, pl 8.0 6.5 - 8.5 g/dL [facility] Albumin 4.2 3.5 - 5.0 g/dL [facility] Alk phos 35(L) 40 - 130 Units/L [facility] ALT 8 7 - 55 Units/L [facility] AST 26 10 - 50 Units/L [facility] Comment:Hemolyzed; result ma y be falsely elevated Blood 11/02/2024 11:4 7 AM CDT 11/02/2024 11:57 AM CDT Sadiq Sim NP LAB BLOOD ORDERABLES Cami l Result Performing Organization Address City/State/[facility] Co de Phone Number [facility] [place] [address] * CT Chest Abdomen Pelvis W Contrast [...] ORDERABLES - DEVICE F inal Result NO [facility] Department [place] [address] from Last 3 Months Insurance [facility] MEDICARE ADVANTAGE [place] [id number] R HMO REF MEDICARE ADVANTAGE [place] [id number] Advance Directives For more information, please contact: [phone] * Full Code (Latest Code Status on File) Date Activated Date Inactivated Comments 03/22/2019 2:32 AM 03/25/2019 7:04 PM * Full Code Date Activated Date Inactivated Comments 07/20/2018 8:18 PM 07/23/2018 4:42 PM Care Teams Wirer Helper Relationship Specialty Start Date End Date Ines Carpenter MD [address] [facility] [address] [place] [address] PCP - General Internal Medicine 06/04/22 Ambrose Reyes MD Referring Physician Neurosurgery 07/23/18 Marcell Mckay MD [address] [place] [address] Consulting Physician Plastic Surgery 03/11/19 Ines Carpenter MD [address] [facility] [address] [place] [address] Consulting Physician Internal Medicine 06/04/22
--- OUTSIDE RECORDS SUMMARY | 2024-12-25 20:08 | XMS_ITS ---
Author Organization [facility] Address [address] [place] [address] Care Team Providers Care Special Delivery Worker Name Role Phone Ambrose Reyes MD Unavailable [phone] Marcell Mckay MD Unavailable Ines Carpenter MD [...] (02/25/2019): Added automatically from request for surgery [id number] Melanoma of forearm, right 01/15/2019 Encounter for preprocedural cardiovascular exami [facility] 2018 Neck pain 07/21/2018 Atrial fibrillation 07/21/2018 Cardiomyopathy 07/21/2018 Degenerative disc disease, cervical 07/21/2018 Cervical stenosis of spinal canal 07/21/2018 Anxiety disorder, unspecified 04/18/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
--- OUTSIDE RECORDS SUMMARY | 2024-12-25 20:08 | XMS_ITS | Referral Summary ---
Author Organization [facility] Address [address] [place] [address] Care Team Providers Care Game Programer Name Role Phone Ambrose Reyes MD Unavailable [phone] Marcell Mckay MD Unavailable Ines Carpenter MD Unavailable Ines Carpenter MD Primary Care Provider Encounters Date Type Department Care Team Description 11/16/2024 1:30 PM CDT Lab [address] [address] 11/04/2024 Telephone [facility] Oncology [address] [facility] [address] [place] [address] Olayinka Vega CMA 11/04/2024 Documentation [facility] Oncology [facility] [address] [address] Darcy Sifuentes, ALLEN 11/04/2024 Telephone [facility] Oncology [facility]0 [facility] Floor [address] [place] [address] Darcy Sifuentes RN 11/03/2024 Orders Only [facility] Otolaryngology [facility] Advanced Medicine 11th [place] [address] [place] [address] Gris Davis Au.D. Dizziness (Primary Dx) 11/03/2024 Telephone [facility] Otolaryngology [address] [place] [address] Advanced Medicine 11th [place] [address] [place] [address] Gris Davis Au.D. 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); Melanoma of forearm, right (HCC) 11/02/2024 11:15 AM CDT Lab [facility] Oncology Lab [facility]0 [facility] 6 [place] [address] 11/02/2024 1:40 PM CDT Office Visit [facility] Oncology [facility]0 [facility] 6 [place] [address] Brian Min MD 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) (Primary Dx); Melanoma of forearm, right (HCC) 11/02/2024 10:10 AM CDT - 11/02/2024 11:59 PM CDT Hospital Encounter [facility] [address] [place] [id number] Malignant neoplasm metastatic to lymph node of [...] (02/25/2019): Added automatically from request for surgery [id number] Melanoma of forearm, right 01/15/2019 Encounter for preprocedural cardiovascular exami [place] 2018 Neck pain 07/21/2018 Atrial fibrillation 07/21/2018 Cardiomyopathy 07/21/2018 Degenerative disc disease, cervical 07/21/2018 Cervical stenosis of spinal canal 07/21/2018 Anxiety disorder, unspecified 04/18/2016 long-term (current) use of anticoagulants 2015 Cardiomyopathy 05/09/2015 Peripheral vascular disease, unspecified 015 Peripheral vascular disease, unspecified 015 Unspecified atrial fibrillation 06/28/2014 Unspecified atrial flutter 06/28/2014 Acute stress reaction 06/07/2014 Acute stress reaction 06/07/2014 Coronary atherosclerosis 07/24/2013 CKD (chronic kidney disease) 07/17/2013 COPD (chronic obstructive pulmonary disease) Coronary atherosclerosis of [place] coronary francesca ry 07/17/2013 Encounter for other [...] on file Legal 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[employer] Gender Identity Not on file Sexual Orientation [...] on file Medical Devices Implanted Type Area Patient Services Clerk Device Identifier Shelf Expiration Date Model / Serial / Lot Icd ICD Left: Chest [employer] Scientific Procedures Procedure Name Priority Date/Time Associated [...] Ma MD LAB BLOOD ORDERABLES Final Result [facility] [id number] [place] [address] * Differential, auto (11/16/2024 1:35 PM CDT) Neutrophil abs 4.43 1.50 - 6.50 K/cumm Imm gran abs 0.02 0.00 - 0.10 K/cumm [facility] Lymphocyte abs 1.31 0.80 - 3.30 K/cumm [facility] Monocyte abs 0.40 0.20 - 0.80 K/cumm [facility] Eosinophil abs 0.25 0.00 - 0.50 K/cumm [facility] Basophil abs 0.07 0.00 - 0.10 K/cumm [facility] Neutrophil pct 68.3 % [facility] Comment: Interpretive Data Percent cell count reference ranges are not reported, since discordance with absolute values may lead to misinterpretation of CBC data. Current Interpretive Data was last revised on 2017. Imm gran pct 0.3 % [facility] Comment: Interpretive Data Percent cell count reference ranges are not reported, since discordance with absolute values may lead to misinterpretation of CBC data. Current Interpretive Data was last revised on 2017. Lymphocyte pct 20.2 % [facility] Comment: Interpretive Data Percent cell count reference ranges are not reported, since discordance with absolute values may lead to misinterpretation of CBC data. Current Interpretive Data was last revised on 2017. Monocyte pct 6.2 % [facility] Comment: Interpretive Data Percent cell count reference ranges are not reported, since discordance with absolute values may lead to misinterpretation of CBC data. Current Interpretive Data was last revised on 2017. Eosinophil pct 3.9 % [facility] Comment: Interpretive Data Percent cell count reference ranges are not reported, since discordance with absolute values may lead to misinterpretation of CBC data. Current Interpretive Data was last revised on 2017. Basophil pct 1.1 % [facility] Comment: Interpretive Data Percent cell count reference ranges are not reported, since discordance with absolute values may lead to misinterpretation of CBC data. Current Interpretive Data was last revised on 2017. Blood 11/16/2024 1:35 PM CDT 11/16/2024 2:57 PM CDT us Jose Ma MD LAB BLOOD ORDERABLES Final Result [address] [place] [address] * (ABNORMAL) Pro B-type natriuretic peptide (11/16/2024 [...] BLOOD ORDERABLES Final Result Performing Organization Address [facility] Co de Phone Number [address] [place] [facility] [place] [address] * (ABNORMAL) CBC with auto differential (11/16/2024 1:35 PM CDT) WBC 6.48 3.80 - 9.90 K/cumm Hgb 13.9 13.0 - 17.5 g/dL [facility] Hct 43.3 38.9 - 50.3 % [facility] Plt 242 150 - 400 K/cumm [facility] MPV 9.9 9.1 - 12.3 fL [facility] RBC 4.72 4.30 - 5.80 M/cumm [facility] MCV 91.7 81.3 - 96.4 fL [facility] MCH 29.4 27.1 - 33.3 pg [facility] MCHC 32.1(L) 32.3 - 35.7 g/dL [facility] RDW CV 13.3 11.1 - 14.9 % [facility] RDW SD 45.1 35.7 - 48.1 fL [facility] NRBC abs 0.00 0.00 - 0.01 K/cumm [facility] Blood 11/16/2024 1:35 PM CDT 11/16/2024 2:57 PM CDT Jose Ma MD LAB BLOOD ORDERABLES Final Result Performing Organization Address [facility] Co de Phone Number [id number] [place] [address] * Cortisol (11/16/2024 1:35 PM CDT) Cortisol [...] LAB BLOOD ORDERABLES Final Result [address] [place] [address] * (ABNORMAL) Lipid panel (11/16/2024 1:35 PM [...] LAB BLOOD ORDERABLES Final Result [address] Department [place] [address] * (ABNORMAL) Comprehensive metabolic panel (11/16/2024 1:35 [...] LAB BLOOD ORDERABLES Final Result [address] Department [place] [address] * (ABNORMAL) eGFR (11/02/2024 11:47 AM CDT) [...] CDT 11/02/2024 11:57 AM CDT Sadiq Sim ROTARY SURFACE GRINDER LAB BLOOD ORDERABLES Cami l Result [facility] [place] [address] * Differential, auto (11/02/2024 11:47 AM CDT) Pathologist [facility] Neutrophil abs 5.9 1.5 - 6.5 K/cumm Comment:Testing performed by : [facility]e [facility], [address] [place] [phone] Lymphocyte abs 1.3 0.8 - 3.3 K/cumm [facility] Comment:Testing performed by : [facility], [address] [place] [phone] Monocyte abs 0.5 0.2 - 0.8 K/cumm [facility] Comment:Testing performed by : [facility], [address] [place] [phone] Eosinophil abs 0.2 0.0 - 0.5 K/cumm [facility] Comment:Testing performed by : [facility], [address] [place] [phone] Basophil abs 0.1 0.0 - 0.1 K/cumm [facility] Comment:Testing performed by : [facility], [address] [place] [phone] Neutrophil pct 73.6 % [facility] Comment: Interpretive Data Percent cell count reference ranges are not reported, since discordance with absolute values may lead to misinterpretation of CBC data. Current Interpretive Data was last revised on 2017. Testing performed by: [facility] Lab, [address] [place] [phone] Lymphocyte pct 16.8 % [facility] Comment: Interpretive Data Percent cell count reference ranges are not reported, since discordance with absolute values may lead to misinterpretation of CBC data. Current Interpretive Data was last revised on 2017. Testing performed by: [facility], [address] [place] [phone] Monocyte pct 6.1 % [facility] Comment: Interpretive Data Percent cell count reference ranges are not reported, since discordance with absolute values may lead to misinterpretation of CBC data. Current Interpretive Data was last revised on 2017. Testing performed by: [facility], [address] [place] [phone] Eosinophil pct 2.2 % [facility] Comment: Interpretive Data Percent cell count reference ranges are not reported, since discordance with absolute values may lead to misinterpretation of CBC data. Current Interpretive Data was last revised on 2017. Testing performed by: [facility], [address] [place] [phone] Basophil pct 1.2 % [facility] Comment: Interpretive Data Percent cell count reference ranges are not reported, since discordance with absolute values may lead to misinterpretation of CBC data. Current Interpretive Data was last revised on 2017. Testing performed by: [facility], [address] [place] [phone] Blood 11/02/2024 11:4 7 AM CDT 11/02/2024 11:53 AM CDT Sadiq iSm NP LAB BLOOD ORDERABLES Cami l Result Performing Organization Address [facility] Co de Phone Number [facility] Department [place] [address] * Thyroid Function [place] (11/02/2024 11:47 AM CDT) Pathologist [facility] TSH 2.85 0.30 - 4.20 mcIUnit/mL Blood 11/02/2024 11:4 7 AM CDT 11/02/2024 11:57 AM CDT Sadiq Sim ROTARY SURFACE GRINDER LAB BLOOD ORDERABLES Cami l Result Performing Organization Address [facility] de Phone Number [facility] [place] [address] * CBC with auto differential (11/02/2024 11:47 AM CDT) WBC 8.0 3.8 - 9.9 K/cumm Comment:Testing performed by : [facility]e [facility], [address] [place] [phone] Hgb 14.3 13.0 - 17.5 g/dL [facility] Comment:Testing performed by : [facility], [address] [place] [phone] Hct 43.8 38.9 - 50.3 % [facility] Comment:Testing performed by : [facility], [address] [place] [address] Plt 295 150 - 400 K/cumm [facility] Comment:Testing performed by : [facility], [address] [place] [address] MPV 7.8 6.8 - 10.4 fL NO [facility]ER Comment:Testing performed by : [facility], [address] [place] [address] RBC 4.89 4.30 - 5.80 M/cumm [facility] Comment:Testing performed by : [facility], [address] [place] [address] MCV 89.6 81.3 - 96.4 fL [facility] Comment:Testing performed by : [facility], [address] [place] [address] MCH 29.3 27.1 - 33.3 pg NO [facility] Comment:Testing performed by : [facility], [address] [place] [address] MCHC 32.7 32.3 - 35.7 g/dL NO [facility] Comment:Testing performed by : [facility], [address] [place] [address] RDW CV 14.5 11.1 - 14.9 % NO SCHUSETR Comment:Testing performed by : [facility], [address] [place] [address] NRBC abs 0.00 0.00 - 0.01 K/cumm NO [facility]ER Comment:Testing performed by : [facility], [address] [place] [address] Blood 11/02/2024 11:4 7 AM CDT 11/02/2024 11:53 AM CDT us Sadiq Sim ROTARY SURFACE GRINDER LAB BLOOD ORDERABLES Cami l Result NO [facility]USTER [facility] [place] [address] * (ABNORMAL) Comprehensive metabolic panel (11/02/2024 11:47 AM CDT) Sodium 137 135 - 145 mmol/L Potassium, pl 5.3(H) 3.3 - 4.9 mmol/L [facility] Comment:Hemolyzed; Potassium value may be falsely elevated by as much as 0.6-1.0 mmol/L. Suggest redraw and reanalysis. Chloride 98 97 - 110 mmol/L [facility] CO2 28 22 - 32 mmol/L [facility] Anion gap 11 2 - 15 mmol/L [facility] BUN 28(H) 6 - 25 mg/dL [facility] Creatinine 1.33(H) 0.80 - 1.30 mg/dL [facility] Glucose 93 70 - 199 mg/dL [facility] Comment: Interpretive Data Fasting glucose >/= [...] 2022. Calcium 9.5 8.5 - 10.3 mg/dL [facility] Bilirubin, total 1.2 0.1 - 1.2 mg/dL [facility] Protein, pl 8.0 6.5 - 8.5 g/dL [facility] Albumin 4.2 3.5 - 5.0 g/dL [facility] Alk phos 35(L) 40 - 130 Units/L [facility] ALT 8 7 - 55 Units/L [facility] AST 26 10 - 50 Units/L [facility] Comment:Hemolyzed; result ma y be falsely elevated Blood 11/02/2024 11:4 7 AM CDT 11/02/2024 11:57 AM CDT us Sadiq Sim NP LAB BLOOD ORDERABLES Cami loving Result [facility] One [facility] Department [place] [address] * CT Chest Abdomen Pelvis W Contrast [...] by: Jose Luis Bernard M.D. Sadiq Sim ROTARY SURFACE GRINDER IMG CT PROCEDURES Final R esult * (ABNORMAL) POCT creatinine (11/02/2024 10:41 AM CDT) Creatinine POC 1.5(H) 0.8 - 1.3 mg/dL Blood 11/02/2024 10:4 1 AM CDT 11/02/2024 10:41 AM CDT Brian Min MD LAB POCT ORDERABLES - DEVICE F inal Result [facility] [place] [address] from Last 3 Months Insurance [facility] Address: [address] [address] [facility] Address: [address] [address] [place] [address] MEDICARE [employer]VANTAGE [facility] Address: [address] [id number] [place] [address] Advance Directives For more information, please contact: [phone] * Full Code (Latest Code Status on File) Date Activated Date Inactivated Comments 03/22/2019 2:32 AM 03/25/2019 7:04 PM * Full Code Date Activated Date Inactivated Comments 07/20/2018 8:18 PM 07/23/2018 4:42 PM Care Teams Game Programer Relationship Specialty Start Date End Date Ines Carpenter MD [address] [facility] [address] [place] [address] PCP - General Internal Medicine 06/04/22 Ambrose Reyes MD Referring Physician Neurosurgery 07/23/18 Marcell Mckay MD [address] [place] [address] Consulting Physician Plastic Surgery 03/11/19 Ines Carpenter MD [address] [facility] [address] [place] [address] Consulting Physician Internal Medicine 06/04/22
--- OUTSIDE RECORDS SUMMARY | 2024-12-25 20:08 | XMS_ITS | CONTINUITY OF CARE DOCUMENT ---
Author Name skylar cheng Address Unknown Organization [facility] Address [address] [facility] [address] [place] [address] Phone [phone] Care Team Providers Care Laboratory Apparatus Glass Grinder Name Role Phone Sally SANCHEZ, Juwan Klein Unavailable ANIBAL GUSMAN MD Unavailable [phone] ANIBAL GUSMAN MD Unavailable PROBLEMS Condition Status Date Provider Notes Dizziness active Torrey Maldonado Coumadin clinic active Vishal Hernandez RN Abnormal chest CT scan active Vishal Hernandez RN Cardiomyopathy active Saniya Irene OTHER DISEASES OF MEDIASTINU M NEC-NODULE completed - Rachel Valle MD Essential Hypertension active Rachel Valle MD MURAL THROMBUS, 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 Juwan Zavala MD Anxiety situational active Jose doyle MD Atrial fib active Jose Ma MD Atrial flutter paroxysmal active Jose mon MD PVD unspecified active Jose Ma MD Preop cardiovasc. examination active Renny Zavala MD Risk of amiodarone toxicity w care home active Juwan Zavala MD Mitral regurgitation, mild-moderate active Juwan Zavala MD Dizziness active Juwan Zavala MD Hypercholesterolemia active Juwan danielle MD CHF - systolic active Juwan Zavala MD Cardiology examination active Jose anne MD Family History of Sudden Car diac : completed - Rachel Valle MD CAD 07/17 CATH LAD-Cutting Balloon INTEGRITY stent active Rachel Valle MD HEALTH MAINTENANCE EXAM completed - Rachel Valle MD CARDIOMYOPATHY- ISCHEMIC-EF 5-10%, S/P [employer] AICD and ep study active Rachel Valle MD DIZZINESS-07/17 CATH LAD-CUT BALLOON- INTEGRITY completed - Rachel Valle MD ENCOUNTERS Date Type Provider Location Encounter Diag nosis - In-person encounter Office Visit Jwuan Zavala MD [facility] - In-person encounter Office Visit Jose Ma MD [facility] - In-person encounter Office Visit Jose Ma MD [facility] Cardiology examination - In-person encounter Office Visit Juwan Zavala MD [facility] - In-person encounter Office Visit Juwan Zavala MD [facility] CHF - systolic - In-person encounter Office Visit Juwan Zavala MD [facility] - In-person encounter Office Visit Juwan Zavala MD [facility] Hypercholesterolemia - In-person encounter Office Visit Juwan Zavala MD [facility] - In-person encounter Office Visit Juwan Zavala MD [facility] - In-person encounter Office Visit Juwan Zavala MD [facility] - In-person encounter Office Visit Juwan Zavala MD [facility] - In-person encounter Office Visit [facility] - In-person encounter Office Visit Jose Ma MD [facility] - In-person encounter Office Visit Juwan Zavala MD [facility] - In-person encounter Office Visit Juwan Zavala MD [facility] - In-person encounter Office Visit Juwan Zavala MD [facility] - In-person encounter Office Visit Jose Ma MD [facility] - In-person encounter Office Visit Juwan Zavala MD [facility] - In-person encounter Office Visit Juwan Zavala MD [facility] Office Dizziness - In-person encounter Office Visit Juwan Zavala MD [facility] Mitral regurgitation, mild-moderate - In-person encounter Office Visit Juwan Zavala MD [facility] - In-person encounter Office Visit Juwan Zavala MD [facility] - In-person encounter Office Visit Juwan Zavala MD [facility] Risk of amiodarone toxicity w rn long term care - In-person encounter Office Visit Rachel Valle MD [facility] - In-person encounter Office Visit Juwan Zavala MD [facility] - In-person encounter Office Visit Juwan Zavala MD [facility] Preop cardiovasc. examination - In-person encounter Office Visit Juwan Zavala MD [facility] - In-person encounter Office Visit Juwan Zavala MD [facility] - In-person encounter Office Visit Juwan Zavala MD [facility] - In-person encounter Office Visit Juwan Zavala MD [facility] - In-person encounter Office Visit Juwan Zavala MD [facility] - In-person encounter Office Visit Juwan Zavala MD [facility] - In-person encounter Office Visit Juwan Zavala MD [facility] - In-person encounter Office Visit Juwan Zavala MD [facility] - In-person encounter Office Visit Jose Ma MD [facility] PVD unspecified - In-person encounter Office Visit Jose Ma MD [facility] - In-person encounter Office Visit Jose Ma MD [facility] Atrial fibAtrial flutter paroxysmal - In-person encounter Office Visit Rachel Valle MD [facility] DIZZINESS-07/17 CATH LAD-CUT BALLOON- INTEGRITYOTHER DISEASES OF MEDIASTINUM NEC-NODULECARDIOMYOPATHY- ISCHEMIC-EF 5-10%, S/P [employer] AICD and ep studyEssential HypertensionHEALTH MAINTENANCE EXAMCAD 07/17 CATH LAD-Cutting Balloon INTEGRITY stentFamily History of Sudden Cardiac : - In-person encounter Office Visit Jose Ma MD [facility] Anxiety situational - In-person encounter Office Visit Jose Ma MD [facility] - In-person encounter Office Visit Jose Ma MD [facility] - In-person encounter Office Visit Jose Ma MD [facility] Essential HypertensionCAD 07/17 CATH LAD-Cutting Balloon INTEGRITY stent - In-person encounter Office Visit Juwan Zavala MD [facility] - In-person encounter Office Visit Juwan Zavala MD [facility] - In-person encounter Office Visit Juwan Zavala MD [facility] CARDIOMYOPATHY- ISCHEMIC-EF 5-10%, S/P [employer] AICD and ep studyMURAL THROMBUS, LEFT VENTRICLE-ON COUMADIN VITAL SIGNS Date Observation Value Provider Body Mass Index (Ratio) 22.96 kg/m2 Melodie Zavala MD blood pressure, diastolic 82 mm[facility]Hg[facility] 130 mm[Hg] act [facility] oxygen saturation, oximetry 97 % [facility] pulse rate 72 /min [facility] respiratory rate E&M 12 /min [facility] weight E&M 151 [lb_av] [facility] height E&M 68 [in_i] [facility] blood pressure, cuff size regular [facility] Body Mass Index (Ratio) 23.57 kg/m2 Torrey Maldonado blood pressure, diastolic 75 mm[Hg] [facility] blood pressure, systolic 121 mm[Hg] [facility] oxygen saturation, oximetry 95 % [facility] pulse rate 70 /min [facility] respiratory rate E&M 12 /min [facility] weight E&M 155 [lb_av] [facility] height E&M 68 [in_i] [facility] blood pressure, cuff size regular [facility] Body Mass Index (Ratio) 23.57 kg/m2 Abran Ma MD blood pressure, diastolic 86 mm[Hg] [facility], systolic 125 mm[Hg] [facility]y [facility] oxygen saturation, oximetry 97 % [facility] pulse rate 85 /min [facility] rate E&M 12 /min [facility] weight E&M 155 [lb_av] [facility] height E&M 68 [in_i] [facility] blood pressure, cuff size regular [facility] Body Mass Index (Ratio) 24.17 kg/m2 Melodie Zavala MD blood pressure, diastolic 80 mm[Hg] Li nkLog blood pressure, systolic 111 mm[Hg] Sherry kLogic blood pressure, diastolic 80 mm[Hg] Yanni yla [facility] blood pressure, systolic 111 mm[Hg] Janae la [facility] blood pressure, cuff size regular Yanni deleona [facility] oxygen saturation, oximetry 97 % Elisa [facility] pulse rate 78 /min Elisa [facility] weight E&M 159 [lb_av] Elisa [facility] height E&M 68 [in_i] Elisa [facility] Body Mass Index (Ratio) 23.72 kg/m2 Melodie Zavala MD blood pressure, cuff size regular [facility] blood pressure, diastolic 68 mm[Hg] [facility] blood pressure, systolic 110 mm[Hg] [facility] oxygen saturation, oximetry 97 % [facility] respiratory rate E&M 14 /min [facility] pulse rate 76 /min [facility] weight E&M 156 [lb_av] Shannan Blackwell height [...] blood pressure, cuff size regular Ca therine [place] blood pressure, diastolic 79 mm[Hg] Ca therine Gary blood pressure, systolic 128 mm[Hg] Cat herine Gary oxygen saturation, oximetry 95 % Heather Gary respiratory rate E&M 16 /min Catheri ne [place] pulse rate 101 /min Heather Gary weight [...] Padilla blood pressure, diastolic 75 mm[Hg] To [facility] blood pressure, systolic 121 mm[Hg] [facility] oxygen saturation, oximetry 97 % [facility] respiratory rate E&M 16 /min [facility] pulse rate 73 /min [facility] temperature E&M 99.1 [degF] [facility] temperature site temporal [facility] weight E&M 157 [lb_av] [facility] height E&M 68 [in_i] [facility] Body Mass Index (Ratio) 24.93 [...] /min Mercedes corona weight E&M 157 [lb_av] Mercedes mendezer height [...] pressure, diastolic, standing 90 mm [Hg] [facility], [facility], standing 146 mm [Hg] [facility] Body Mass Index (Ratio) 22.80 kg/m2 [facility], diastolic 88 mm[Hg] As [facility] blood pressure, systolic 158 mm[Hg] [facility] pulse rate 88 /min [facility] oxygen saturation, oximetry 98 % [facility] respiratory rate E&M 17 /min [facility] 150 [lb_av] Kimmie [facility]ross Body [...] cholesterol, non-HDL, total 186 mg/dL LinkLogic C, [place] [address] 11/16 lipoprotein, beta, serum, point, quantitative, calculated 153 mg/dL LinkLogic <=129 High C, [place] [address] 11/16 HDL CHOLESTEROL 58 mg/dL Link[facility] >=40 Normal C, [place] [address] 11/16 triglyceride, serum, fasting 184 mg/dL [facility] <=149 High C, [place] [address] 11/16 cholesterol, serum 244 mg/dL [facility] 30-199 High C, [place] [address] 11/16 NT-pro BNP 4305 LinkLogic <=450 High C, [place] [address] 11/16 aspartate aminotransferase (SGOT), serum 20 1/L [facility] 10-50 Normal C, [place] [address] 11/16 alanine aminotransferase (SGPT), serum 9 1/L [facility] 7-55 Normal C, [place] [address] 11/16 Alkaline phosphatase 42 Link[facility] 40-130 Normal C, [place] [address] 11/16 albumin, serum 4.3 g/dL [facility] 3.5-5.0 Normal C, [place] [address] 11/16 protein, total, serum 7.4 g/dL [facility] 6.5-8.5 Normal C, [place] [address] 11/16 bilirubin, serum, total 1.0 mg/dL [facility] 0.1-1.2 Normal C, [place] [address] 11/16 calcium, serum 9.3 mg/dL [facility] 8.5-10.3 Normal C, [place] [address] 11/16 blood glucose, random 93 mg/dL [facility] 70-199 Normal C, [place] [address] 11/16 creatine, serum 1.38 mg/dL [facility] 0.80-1.30 High C, [place] [address] 11/16 urea nitrogen, blood 20 mg/dL [facility] 6-25 Normal C, [place] [address] 11/16 anion gap, serum 12 mmol/L [facility] 2-15 Normal C, [place] [address] 11/16 carbon dioxide, venous blood 28 mmol/L [facility] 22-32 Normal C, [place] [address] 11/16 chloride, serum 100 mmol/L [facility] 97-110 Normal C, [place] [address] 11/16 potassium, serum 3.8 MMOL/L [facility] 3.3-4.9 Normal C, [place] [address] 11/16 sodium, serum 140 mmol/L [facility] 135-145 Normal C, [place] [address] 11/16 Absolute Basophils 0.07 K/CUMM LinkLogic 0.00-0.10 Normal C, [place] [address] 11/16 Absolute Monocytes 0.40 K/CUMM Link[facility]ic 0.20-0.80 Normal , [place] [address] 11/16 Absolute Lymphocytes 1.31 K/CUMM LinkLogic 0.80-3.30 Normal C, [place] [address] 11/16 Absolute Neutrophils 4.43 K/CUMM Link[facility]ic 1.50-6.50 Normal C, [place] [address] 11/16 nucleated red blood cells as percent of blood leukocytes 0.00 K/CUMM Link[facility] 0.00-0.01 Normal , [place] [address] 11/16 red blood cell distribution width, size density 45.1 fL [facility] 35.7-48.1 Normal C, [place] [address] 11/16 mean corpuscular hemoglobin concentration, RBC 32.1 G/DL [facility] 32.3-35.7 Low C, [place] [address] 11/16 mean corpuscular hemoglobin, RBC 29.4 pg [facility] 27.1-33.3 Normal C, [place] [address] 11/16 mean corpuscular volume, RBC 91.7 fL [facility] 81.3-96.4 Normal C, [place] [address] 11/16 erythrocyte count, whole blood 4.72 M/CUMM [facility] 4.30-5.80 Normal C, [place] [address] 11/16 mean platelet volume 9.9 fL [facility] 9.1-12.3 Normal C, [place] [address] 11/16 platelet count 242 10*3/uL Link[facility]ic 150-400 Normal C, [place] [address] 11/16 hematocrit, blood 43.3 % LinkLogic 38.9-50.3 Normal C, [place] [address] 11/16 hemoglobin, blood 13.9 g/dL LinkLogic 13.0-17.5 Normal C, [place] [address] 11/16 Estimated Glomerular Filtration Rate (calc) 53 mL/min/{1.7 3_m2} LinkLogic >=60 Low C, [place] [address] 02/02 coagulation managed by Antonio Kirkpatrick RN [...] 12/15 international normalized ratio (INR) 1.9 Heather [place] Normal 0 12/15 prothrombin time (patient) 23.1 [...] Hernandez RN 09/29 coagulation managed by Vishal Heranndez RN 09/29 international normalized ratio (INR) 2.0 Vishal Hernandez RN Normal 09/29 prothrombin time (patient) 23.4 s Vishal Hernandez RN 09/19 prothrombin time (patient) 19.8 s Dania Yifan 09/19 coagulation managed by Dania Saha 09/19 international normalized ratio (INR) 1.7 Daniakimberly Saha Normal 09/08 coagulation managed by Vishal Rodgers Hernandez RN 09/08 international normalized ratio (INR) 2.9 Leyla [place] Normal 09/08 prothrombin time (patient) 35.1 s [...] 04/24 international normalized ratio (INR) 2.3 Alejandra [place] Normal 04/11 coagulation managed by Vishal Hernandez [...] 02/17 prothrombin time (patient) 40.5 s Alejandra [place] 02/17 international normalized ratio (INR) 3.4 Alejandra [place] Normal 01/31 coagulation managed by Vishal Hernandez [...] 3.5-5.2 High sodium, serum 141 mmol/L LinkLogic 428-715 9629/1 0/31 urea nitrogen/creatinin e ratio, serum 21 [...] Normal prothrombin time (patient) 18.3 s Nayeli [place] 2020/0 915 coagulation managed by Vishal Hernandez [...] RN 09/07 international normalized ratio (INR) 2.5 Brenadn Preciado Normal 09/07 prothrombin time (patient) 30.4 [...] 04/02 coagulation managed by Maggie Ernie Ede IT HELP DESK TECHNICIAN Maggie N Ede 04/02 international normalized ratio (INR) 1.9 Maggie N Ede Normal 04/02 prothrombin time (patient) 22.2 s Maggie N Ede 03/26 coagulation managed by Maggie N Ede IT HELP DESK TECHNICIAN Maggie N Ede 03/26 international normalized ratio [...] RN 12/12 international normalized ratio (INR) 2.5 [place] Hsieh Normal 12/12 prothrombin time (patient) 30.5 s Irvin Hsieh 12/02 coagulation managed by Vishal Hernandez RN 12/02 international normalized ratio (INR) 1.3 Irvin Hsieh Normal 12/02 prothrombin time (patient) 15.6 s [place] Hsieh 11/07 coagulation managed by Vishal Hernandez RN 11/07 international normalized ratio (INR) 1.8 Zulema Connors Normal 11/07 prothrombin time (patient) 21.8 s Zulema Connors 10/31 coagulation managed by Vishal Hernandez RN 10/31 international normalized ratio (INR) 2.5 [place] Normal 10/31 prothrombin time (patient) 29.9 [...] RN 08/30 international normalized ratio (INR) 2.6 Zuleam Connors Normal 08/30 prothrombin time (patient) 31.0 [...] Normal 08/12 prothrombin time (patient) 37.6 s [place] coagulation managed by Vishal Hernandez RN [...] RN 09/24 international normalized ratio (INR) 1.7 [place] Normal 09/24 prothrombin time (patient) 20.4 [...] RN 08/16 international normalized ratio (INR) 2.9 [place] H[place] Normal 08/16 prothrombin time (patient) 34.9 [...] RN international normalized ratio (INR) 1.1 Lida iLnares RN Normal coagulation managed by Vishal Hernandez [...] 08/25 coagulation managed by Lotus Garcia RN [place] Garcia RN 08/25 international normalized ratio (INR) [...] Linares RN 01/18 platelet count 287 10*3/mm3 [facility] 01/18 hematocrit, blood 42.4 % [facility] 01/18 international normalized ratio (INR) 2.0 [facility] Mahesh 01/18 creatinine, serum 1.03 mg/dL [facility] 01/18 potassium, serum 3.8 mmol/L [facility] 01/18 sodium, serum 141 mmol/L [facility] 09/10 LDL/HDL (low-density lipoprotein/high-d ensity lipoprotein) ratio [...] LinkLogic Normal 09/10 cholesterol, serum 181 mg/dL [facility]199 Normal 09/11 platelet count 276 10*3/mm3 [facility] 09/11 hematocrit, blood 48.4 % [facility] 09/11 triglyceride, serum, fasting 62 mg/dL [facility] 09/11 HDL cholesterol, serum 36 mg/dL [facility] 09/11 lipoprotein, beta, serum, point, quantitative, calculated 117 mg/dL [facility] 09/11 cholesterol, serum 165 mg/dL [facility] 09/11 international normalized ratio (INR) 4.4 [facility] 09/11 thyroid stimulating hormone, serum 0.216 u[IU]/mL [facility] 09/11 D-dimer quantitative mcg/mL 1.51 ug/mL [facility] 09/11 B-type natriuretic peptide 500 pg/mL [facility] 09/11 alanine aminotransferase (SGPT), serum 49 1/L [facility] 09/11 aspartate aminotransferase (SGOT), serum 24 1/L [facility] 09/11 creatinine, serum 0.90 mg/dL [facility] 09/11 potassium, serum 3.8 mmol/L [facility] 09/11 sodium, serum 136 mmol/L [facility] HISTORY OF MEDICATION USE Medication Status Instructions [...] Linares RN CARDIOMYOPAT HY- ISCHEMIC-EF 5-10%, S/P [employer] AICD and ep study AMIODARONE HCL 200 [...] history of marijuana use no Alex Hackett [facility] drug use no Alex [facility] alcohol use, average drinks per day social Alex Hackett [facility] alcohol use yes Alex [facility] passive cigarette sm ana exposure no Alex Hackett [facility] smoking, year quit 2018 Alex franz [facility] smoking history, tot al pack/year 20 Alex Hackett [facility] cigarette use yes Alex Avendano [employer]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,[employer] smoking status Former smoker Alex Hackett DNP,FURNITURE [employer]ER number of grandchildren Jose Ma MD personal [...] history of marijuana use no Verah Bonareri 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 cigarette use yes Verah Bonareri 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 drug use no Verah Bonareri [employer]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 alcohol use, average drinks per day social Verah Bonareri [employer]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 alcohol use yes Verah Bonareri [employer]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 passive cigarette sm ana exposure no Verah Bonareri [employer]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 smoking status Former smoker Karis Bonare ri [employer]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 drug use no Juwan danielle MD alcohol [...] MD drug use no Brea Ventimig corinna [facility] alcohol use, average drinks per day social Brea Lovegllizy [facility] alcohol use yes Brea weinstein [facility] smoking status Never smoker Brea wilburn [facility] social history E&M Lives with family/friends [...] E&M revi ewed - no changes required Jwuan Zavala MD caffeine use, averag e drinks per day yes [facility] passive cigarette sm ana exposure no [facility] smoking/tobacco cess ation, patient education and counseling yes [facility] smoking, year quit 2013 [facility] smoking history, tot al pack/year 20 [facility] cigarette use yes [facility] smoking status Current every day smoker C ancelmochristinamelanie [facility] social history E&M Lives with family/friends P [...] use, averag e drinks per day yes [facility] passive cigarette sm ana exposure no [facility] smoking/tobacco cess ation, patient education and counseling yes [facility] smoking, year quit 2013 [place] smoking history, tot al pack/year 20 [facility] cigarette use yes [facility] smoking status Current every day smoker T [place] social history E&M Lives with family/friends [...] day yes Zulema Waylon drug use none Zluema Prachi loving smoking/tobacco cess ation, patient education [...] chew passive cigarette sm ana exposure no Brednan Preciado smoking/tobacco cess ation, patient education and [...] smoking status Former smoker Brea Oneal chris [employer] social history reviewed E&M revi ewed - [...] - no changes required Jose Ma MD alcohol use, average drinks per day social Aurea Potts caffeine use, averag e drinks per day yes Aurea [facility] drug use none Aurea [facility] passive cigarette sm ana exposure no Aurea Potts smoking/tobacco cess ation, patient education and counseling yes Aurea Potts smoking, year quit 2012 Aurea Fitzpatrick cCarodriguez smoking history, tot al pack/year 20 Aurea Potts cigarette use yes Aurea Potts smoking status Former smoker Jose stoner MD cigarette use yes Aurea [facility] alcohol use, average drinks per day social Aurea [facility] caffeine use, averag e drinks per day yes Aurea [facility] drug use none Aurea [facility] passive cigarette sm ana exposure no Aurea [facility] smoking/tobacco cess ation, patient education and counseling yes Aurea [facility] smoking status Current every day smoker Amari abad [facility] social history E&M L [address] with family/friends [...] Management Plan continue current therapy Alex Philiposei DNP,FURNITURE POLISHER HRA, CV Assess/Plan, Angina (inactive) Management Plan continue current therapy Alexandro Triplett HRA, CV Assess/Plan, Angina (inactive) Management Plan continue current therapy Karis Roberts NP HRA, CV Assess/Plan, Angina (inactive) Management Plan continue current therapy Juwan Zavala MD HRA, CV Assess/Plan, Angina (inactive) Management Plan continue current therapy Brea Ventichris [employer]IT[employer] HRA, CV Assess/Plan, Angina (inactive) Management Plan [...] (inactive) Management Plan continue current therapy Juwan Zaavla MD HRA, CV Assess/Plan, Angina (inactive) Management [...] Payer name Policy type / Coverage type Lohn red constitution party ID [employer] MEDICARE ADVANTAGE ST 0 003 (HMO POS) Medicare [id number] ADVANCE DIRECTIVES Name Date DISCUSSED - NO DECISION MADE TREATMENT PLAN Date Name Performer [id number],C,B P 107/66 A verage per home RPM 121/69 (controlled) His updated medication list for this problem includes: Carvedilol 3.125 Mg Tablet (Carvedilol) ..... Take 1 tablet by mouth twice a day Furosemide 40 Mg Tablet (Furosemide) ..... Take 1 tablet by mouth every other day Brea Ventimiglia [facility] [id number],C,f ollow up CT was ordered as patient on amiodarone w as not done will re-order Brea Ventimiglia [facility] [id number],C,E F of 20% on last echo with combined systolic and diastolic dysfunction R emains on GDMT I CD in place Brea Ventimiglia [facility] [id number],C,n one noted on last device check r emains on amiodarone and BB o n eliquis for AC Brea Loveglia [facility] [id number],C,will do f/u e cho Breaneri Onealmiglia [facility] [id number],C,H as been chronic ongoing dizziness N o orthostatic changes on exam today D evice check shows normal function with no arrythmia B P at goal at home c oncern for otitis media have asked him to see PCP Brea Lovegllizy [facility] [id number],C,a symptomatic w ill do f/u echo Breaneri Onealmiglia [facility] [id number],C, E CHO 05/22/22 CONCLUSIONS: 1 . Technically [...] moderate mitral valve regurgitation. Juwan Zavala MD [id number],S, Juwan Zavala MD [id number],S, C onclusions: Although there is airway obstruction [...] and DLCO when compared to previous study. Juawn Zavala MD [id number],C,p acemaker function okay and remians on eliquis for AFIB S R and atrial paced Juwan Zavala MD [id number],S,has [place] ma ientific ICD Juwan Zavala MD [id number],C,CT pending fr o amnioderone Juwan Zavala MD [id number],C, H e was supposed to be on Entresto, but is now on Ramipril from [facility]. June 15, 2022 C reatine was (2.39) contine with DUNCAN with LV dysfunction. Reduce Amiodarone to 100mg once daily October 10, 2022 c heck amio labs February 15, 2023 l abs reviewed cr was 1.9 Juwan Zavala MD [id number],C, S R and atrial paced Juwan Zavala MD [id number],S, 1 new episode on 12/29/21 in VF [...] on 09-17-2022 6:40 AM Juwan Zavala MD [id number],C, C ONCLUSIONS: 1 . Abnormal septal motion [...] physiologic tricuspid valve regurgitation. Juwan Zavala MD [id number],C, N o new angina Juwan Zavala MD [id number],C,on eliquis Sa josef Zavala MD [id number],C, H e was supposed to be on Entresto, but is now on Ramipril from [facility]. June 15, 2022 C reatine was (2.39) contine with DUNCAN with LV dysfunction. Reduce Amiodarone to 100mg once daily October 10, 2022 c heck amio labs Juwan Zavala MD [id number],C,E CHO 05/22/22 CONCLUSIONS: 1 . Technically difficult [...] moderate mitral valve regurgitation. Juwan Zavala MD [id number],C, H e was supposed to be on Entresto, but is now on Ramipril from [facility]. June 15, 2022 C reatine was (2.39) contine with DUNCAN with LV dysfunction. Reduce Amiodarone to 100mg once daily Juwan Zavala MD [id number],C, N o recent Vtach, need to reduce amio, will likely stop in the next couple of weeks. Will reduce to 100mg mon, wed, frid and plan on stopping assuming that he is no longer having episodes of VT. Check PFTs. EKG is SR and atrial pacing Juwan Zavala MD [id number],W, C ONCLUSIONS: 1 . Abnormal septal motion [...] physiologic tricuspid valve regurgitation. Juwan Zavala MD [id number],C, M ay have vertigo wants to see ENT. Stopped his losartan . hx of CHF. H as to stay on diuretic creatinine was 1.5 recently June 15, 2022 C reatine 2.39 on May 16 labs Juwan Zavala MD [id number],S,H e was supposed to be on Entresto, but is now on Ramipril from [facility]. Juwan Zavala MD [id number],S,S ee what's going on with the renal function. Check labs. Juwan Zavala MD [id number],C, S table INRs,. no bleeding May 16, 2022 A pparently was changed to Eliquis 2.5 BID. Unclear to me when. Juwan Zavala MD [id number],C, C ONCLUSIONS: 1 . Abnormal septal motion [...] physiologic tricuspid valve regurgitation. Juwan Zavala MD [id number],C,No new angina Torrey Maldonado [id number],C,T olerating Metorpolol. Will start him on Spironolactone 25mg. 1 new episode on 12/29/21 in VF zone t erminated with ATP. 10 NSVT episodes. A ppear to be af with RVR. HF trending s hows no elevation. Battery ok. Torrey Maldonado [id number],C,1 new episode on 12/29/21 in VF zone t erminated with ATP. 10 NSVT episodes. A ppear to be af with RVR. HF trending s hows no elevation. Battery ok. Torrey Maldonado [id number],C, H is updated medication list for this problem includes: Warfarin 2 Mg Tablet (Warfarin) ..... Take 1 tablet by mouth every evening expect on saturday and saturday take 1/2 tab Lopressor 50 Mg Tablet (Metoprolol tartrate) ..... Take 1/2 tablet by mouth twice a day take 25mg twice daily Torrey Maldonado [id number],C, B P today: 102/70 P rior BP: 110/75 (01/19/2022) Labs Reviewed: C reat: 1.80 (06/04/2020) C hol: 287 (06/04/2020) HDL: 46 (06/04/2020) Torrey Maldonado [id number],C,Resolved sinc e starting Lasix. Torrey Maldonado [id number],S,Stable INRs,. no bleeding Juwan Zavala MD [id number],C, S elective coronary angiography, left ventriculography, right [...] the setting of no-reflow Juwan Zavala MD [id number],S,H aving VT, VF started lopressor 25mg bid. Reinterrogate device. H aving VT reviewed with pt. Has ICD in place. Will add lopressor 25mg bid. BP shoudl tolerate. Add magnesium 400mg bid. Juwan Zavala MD [id number],S,C ONCLUSIONS: 1 . Abnormal septal motion consistent [...] physiologic tricuspid valve regurgitation. Juwan Zavala MD [id number],C, H is updated medication list for this problem includes: Warfarin 2 Mg Tablet (Warfarin) ..... Take 1 tablet by mouth every evening as directed except on mon, wed,fri, sat take 1 1/2 tab Stable on Coumadin. Juwan Zavala MD [id number],S,C Urrently not on any amio. Left ventricular [...] other day decreasd dose Juwan Zavala MD [id number],S,C ONCLUSIONS: 1 . Abnormal septal motion consistent [...] physiologic tricuspid valve regurgitation. Juwan Zavala MD [id number],C, S table on Coumadin. Gerard Doty [id number],C,D ECREASE furosemide to 20mg (half a tab of 40mg) every other day D ECREASE potassium to half a tablet every day S TOP losartan S TART midodrine 5mg one tab three times daily Rudynirmala Soren [id number],W, M ay have vertigo wants to see ENT. Stopped his losartan . hx of CHF. H as to stay on diuretic creatinine was 1.5 recently DECREASE furosemide to 20mg (half a tab of 40mg) every other day D ECREASE potassium to half a tablet every day S TOP losartan S TART midodrine 5mg one tab three times daily Gerard Doty [id number],C, C onclusions: Although there is airway obstruction [...] compared to previous study. Juwan Zavala MD [id number],S, The symptoms began 1 month ago. The severity is described as severe. has SVT ( atrial flutter) and VT documented. r ecommend: EP study with arrhythmia ablation with carto CT , and anesthesia at [facility] - do not stop any meds before the ablation Juwan Zavala MD [id number],C, N eeds amio labs Left ventricular ejection fraction is estimated at 15 %. Juwan Zavala MD [id number],C, S elective coronary angiography, left ventriculography, right [...] the setting of no-reflow Juwan Zavala MD [id number],S,m ost recent creatinine was 1.54 labs from 09/2021 Juwan Zavala MD [id number],C, S table on Coumadin. Juwan Zavala MD [id number],C, - C ONCLUSIONS: 1 . Severe global [...] moderate mitral valve regurgitation. Juwan Zavala MD [id number],C,M ay have vertigo wants to see ENT. We stopped his losartan . hx of CHF. Has to stay on diuretic creatinine was 1.5 recently Juwan Zavala MD [id number],S,INR stable Sa josef Zavala MD [id number],C, S elective coronary angiography, left ventriculography, right [...] the setting of no-reflow Juwan Zavala MD [id number],C,w ill stop losartan and continue with lasix. B P today: 126/68 P rior BP: 109/74 (07/15/2020) His updated medication list for this problem includes: Losartan Potassium 25 Mg Oral Tablet (Losartan potassium) ..... Take one tablet daily Furosemide 40 Mg Oral Tablet (Furosemide) ..... Take one pill every other day Juwan Zavala MD [id number],C,s uspect he has had orthostatic. Hold losartan. A lso has not taken carvedilol Juwan Zavala MD [id number],S,- C ONCLUSIONS: 1 . Severe global left [...] check lab work. Orders: P do 20 (CPT-38003) C omplex e/m visit add on (G2211) C OMPREHENSIVE METABOLIC PANEL, W/EGFR (08209) C BC (INCLUDES DIFF/PLT) (6399) L IPID PANEL (7600) P ROBNP, N TERMINAL (68996) C ortisol (028234) Torrey Maldonado Telehealth: r ecently cardioverted at [facility] R emains in SR I f has [...] Will need gen change soon. Alex Hackett DNP,[employer] Electrophysiology: r ecently cardioverted at [facility] R emains in SR I f has [...] OAC with eqlis, renal dose. Alex Hackett DNP,[facility] Electrophysiology:So me dizziness and lightheadednes still. Advised to consume 6 cups of water per day. May need medication changes if it continues. Alex Hackett DNP,[facility] Electrophysiology: c ontinues entresto c linically compensated m ild exeritonal SOB stable His updated medication list for this problem includes: Diltiazem Hcl 90 Mg Tablet (Diltiazem hcl) ..... Take 1 tablet by mouth twice a day Dofetilide 250 Mcg Capsule (Dofetilide) ..... Take 1 capsule by mouth twice a day take first dose morning of 08/10/24 Alex Hackett DNP,[facility] Electrophysiology: E F of 20% on [...] Alexandro Triplett Electrophysiology: r ecently cardioverted at [facility] today s top amiodaonre, start tikosyn [...] Cardiology: L ast ov R ecently at [facility] for Decomp. Ideally start on Farxiga [...] and DLCO when compared to previous study. uJwan Zavala MD Cardiology:This visi t has been [...] year and 6 m onths remaining Juwan aZvala MD Cardiology: H as been chronic ongoing [...] listed above for the patient. Recently at [facility] for [facility]. Ideally start on Farxiga [...] PM Juwan Zavala MD Cardiology: h as [employer] ICD[employer]attery Longevity: 1 year and 6 m [...] by mouth every other day Breaneri Lee [facility] Cardiology:follow up CT was ordered as patient on amiodarone w as not done will re-order Brea Rosa [facility] Cardiology:EF of 20% on last echo with combined systolic and diastolic dysfunction R emains on GDMT [facility] Cardiology:none note d on last device check r emains on amiodarone and BB o n eliquis for AC [facility] Cardiology:will do f/u echo [facility] Cardiology:Has been chronic ongoing dizziness N o orthostatic changes on exam today D evice check shows normal function with no arrythmia B P at goal at home c oncern for otitis media have asked him to [facility] Cardiology:asymptoma tic w ill do f/u [facility] Cardiology: E CHO 05/22/22 CONCLUSIONS: 1 [...] with carto CT , and anesthesia at [facility] - do not stop any meds [...] Oral Tablet (Warfarin sodium) ..... 1 tab [id number], 1/2 tab rest of days Amiodarone Hcl 200 Mg Oral Tablet (Amiodarone hcl) ..... One tab. daily Juwan Zavala MD Cardiology follow up -for surgery clearance:Has ICD. Revolver. Juwan Zavala MD Cardiology follow up -for [...] Mg Tabs (Warfarin sodium) ..... One tab [id number]-[id number] only Losartan Potassium 25 Mg Oral Tabs [...] Mg Tabs (Warfarin sodium) ..... One tab [id number] only Losartan Potassium 25 Mg Oral Tabs [...] LVF is 10%. No ICD shocks. Juwan Zvaala MD Cardiology Follow up :Medical complinace reemphasized. [...] ..... Take 1/2 tablet bid Brea Ventimiglia [facility] Cardiology Brea Ventimigl ia [facility] Cardiology: H is updated medication list for this problem includes: Coumadin 2.5 Mg Tabs (Warfarin sodium) ..... One tab daily Amiodarone Hcl 200 Mg Tabs (Amiodarone hcl) ..... One tab. daily Brea Ventimiglia [facility] Cardiology Brea Ventimigl ia [facility] Cardiology: H is updated medication list for this problem includes: Coumadin 2.5 Mg Tabs (Warfarin sodium) ..... One tab daily Brea Ventimiglia [facility] Cardiology: H is updated medication list for this problem includes: Coumadin 2.5 Mg Tabs (Warfarin sodium) ..... One tab daily Amiodarone Hcl 200 Mg Tabs (Amiodarone hcl) ..... One tab. daily Furosemide 40 Mg Tabs (Furosemide) ..... 1 tab daily Losartan Potassium 25 Mg Tabs (Losartan potassium) ..... Take 1/2 tablet bid Brea Ventimiglia [facility] Cardiology: H is updated medication list for this problem includes: Coumadin 2.5 Mg Tabs (Warfarin sodium) ..... One tab daily Amiodarone Hcl 200 Mg Tabs (Amiodarone hcl) ..... One tab. daily Brea Ventimiglia [facility] fu: I STRESSED THAT PATIENT CANNOT [...] at bedtime Jose Ma MD EP faxed 10/18/1426: T he following medications were removed from [...] MD ep follow up faxed 07/23/14 1039 Jsoe Ma MD ep follow up faxed 1 09/23/13 1039:had ICD implanted 01/22/2014 - [employer] by SK at [facility] E P study and atrial fibrillation and flutter ablation 06/21/2014 by SK at [facility] Jose aM MD ep follow up faxed 1 09/23/13 1039:had ICD implanted 01/22/2014 - [employer] by SK at [facility] E P study and atrial fibrillation and flutter ablation 06/21/2014 by SK at [facility] updated medication list for this problem [...] and flutter ablation 06/21/2014 by SK at [facility] elba d ecrease dose of [...] ..... One tab. twice daily Orders: S chedule Followup (*) Jose Ma MD EP f/u faxed 4 1523:EP study and atrial fibrillation and flutter ablation 06/21/2014 by SK at [facility] d ecrease dose of Amiodarone Hcl [...] (Spironolactone) ..... One tab. daily Orders: S chedule Followup (*) Jose Ma MD EP f/u [...] faxed 4 1523: O rders: S pirometry (CPT-01330) Jose Ma MD EP f/u faxed 4 1523:EP study and atrial fibrillation and flutter ablation 06/21/2014 by SK at [facility] Jose Ma MD EP f/u faxed 4 1523:EP study and atrial fibrillation and flutter ablation 06/21/2014 by SK at [facility] Jose Ma MD pre-op faxed 06/10/14 0933: The symptoms began 1 month ago. The severity is described as severe. has SVT ( atrial flutter) and VT documented. r ecommend: EP study with arrhythmia ablation with carto CT , and anesthesia at [facility] - do not stop any meds before the ablation Jose Ma MD pre-op faxed 06/10/14 0933: The symptoms began 1 month ago. The severity is described as severe. has SVT ( atrial flutter) and VT documented. r ecommend: EP study with arrhythmia ablation with carto CT , and anesthesia at [facility] - do not stop any meds before the ablation Jose Ma MD pre-op faxed 06/10/14932 Fabby Ma MD pre-op faxed 06/10/1433:EP study with arrhythmia ablation with carto CT , and anesthesia at [facility] - do not stop any meds before the ablation Jose Ma MD pre-op faxed 06/10/1433:EP study with arrhythmia ablation with carto CT , and anesthesia at [facility] - do not stop any meds [...] One tab. daily C ardiac Cath: Severe [place] CAD involving the LAD which will need to be addressed. Intermediate CAD of the RCA and the first obtuse marginal. Severe pulmonary hypertension. Marked elevation of LVEDP. Elevated systemic hypertension. Diminished cardiac output. Elevated pulmonary arterial pressures. - [facility] (07/05/2013) C ardiac Cath Comments: Successful cutting balloon PTCA of the LAD with a 3.5 mm x 10 mm cutting balloon and stenting of the LAD with a 3.5 x 18 Integrity bare-metal stent in the setting of a non-STEMI presentation. - [facility] (07/05/2013) Juwan Zavala MD Date Name Complete Echo Cortisol PROBNP, N TERMINAL LIPID PANEL CBC (INCLUDES DIFF/P LT) COMPREHENSIVE METABO LIC PANEL, W/EGFR EKG EKG Complete Echo CT Chest without con trast HEPATIC FUNCTION SLOAN EL LIPID PANEL CT Chest with contra st TSH, free T4, total T3 LIPID PANEL COMPREHENSIVE METABO LIC PANEL, W/EGFR Complete Echo DLCO - 41433 FRC - 69882 FVC - 81446 CT Chest with contra st CT, Coronary [...] EL Complete Echo Ambulatory Oximetry DLCO - 01009 FRC - 02670 FVC - 43484 Thyroid Panel Hepatic Function Sloan (7) INR Strip INR Strip X-Ray, Chest - Routi ne T-4, FREE TSH, 3RD GENERATION HEPATIC FUNCTION SLOAN EL 6 minute walk test Ambulatory Oximetry DLCO - 76382 FRC - 39575 FVC - 77315 Complete Echo Stress Regadenoson INR Strip Stress Regadenoson Complete Echo INR Strip INR Strip INR Strip X-Ray, Chest - Routi ne DLCO - 90038 FRC - 44615 FVC - 81760 T-4, FREE TSH, 3RD GENERATION HEPATIC FUNCTION SLOAN EL MAGNESIUM HEPATIC FUNCTION SLOAN EL THYROID PANEL WITH T SH, 3RD GENERATION CBC (H/H, RBC, INDIC ES, WBC, PLT) COMPREHENSIVE METABO LIC PANEL W/EGFR LIPID PANEL X-Ray, Chest - Routi ne DLCO - 60946 FRC - 39494 FVC - 45889 Carotid Duplex Bilat eral STR - Adenosine Complete Echo STR - Nuclear THYROID PANEL PROTHROMBIN TIME WIT H INR THYROID PANEL Full PFT PROTHROMBIN TIME WIT H INR Complete Echo STR - Adenosine STR - Adenosine Full PFT Arterial Duplex Bi-L ower EX DLCO Order - 66639 FRC Order - 11245 FVC Order - 85395 Spirometry Holter Monitor 24 Hr Spirometry Spirometry [...] doyle MD completed FVC / MVV - 84210 Juwan dominguez MD completed BLOOD COUNT HEMOGLOBIN Juwan Zavala MD completed FRC - 25659 Juwan Zavala MD completed SpO2 w/o 6min walk/titration Juwan Zavala MD completed DLCO - 31502 Juwan Zavala MD completed EKG Juwan Zavala [...] completed Protime Lex Man MD completed Protime Rachel Valle MD completed Protime Rachel Valle MD completed Protime Brian Richardson MD complet ed Protime Andreas Cabrera MD complete d Georgette Valle MD completed Georgette Valle MD completed Protime Neri Franz MD completed Protime Brian Richardson MD complet ed Protpaula Baxter MD complet ed Protpaula Cabrera MD complete d Protpaula Valle MD completed Georgette Valle MD completed FVC / MVV with bronchodilator - 68082 Juwan Zavala MD completed BLOOD COUNT HEMOGLOBIN Juwan Zavala MD completed FRC - 60569 Juwan Zavala MD completed SpO2 w/o 6min walk/titration Juwan Zavala MD completed DLCO - 93927 Juwan Zavala MD completed Georgette Valle MD completed Georgette Valle MD completed Georgette Valle MD completed Georgette Barfield MD complete d Georgette Barfield MD complete d Georgette Zavala MD completed Georgette Cabrera MD complete d Georgette Zavala MD completed Georgette Valle MD completed Georgette Barfield MD complete d Georgette Baxter MD complet ed Georgette doyle MD completed ICM Interrogation, Remote (Prof) [...] HEMOGLOBIN Juwan Zavala MD completed FRC - 00524 Juwan Zavala MD completed DLCO - 39241 Juwan Zavala MD completed ICM Interrogation, Remote (Prof) Juwan Zavala MD INTERROGATION EVAL REMOTE </30 D CV MNTR SYS completed ICM Interrogation, Remote (Tech) Juwan Zavala MD INTERROGATION EVAL REMOTE </30 D TECH REVIEW completed Georgette Valle MD completed Regadenoson, 4 units Juwan galloway MD completed Cardiolite, 2 units Juwan dykes MD completed SPECT Images Juwan Zavala MD completed Stress MATTHEW Baxter MD complet ed ICM Interrogation, Remote [...] Juwan Zavala MD INTERROGATION REMOTE </90 D TOWERMAN REVIEW completed AICD Interrogation, Remote (Prof) Juwan [...] TECH REVIEW completed Georgette Valle MD completed Protpaula Valle MD completed Protpaula Baxter MD complet ed Protpaula Man MD completed Georgette Man MD completed Protime Nurse .Triage completed Protpaula Baxter MD complet ed Protpaula Zavala MD completed Protime Neri Franz MD completed Protime Lex Man MD completed Protpaula Valle MD completed AICD Interrogation, Remote (Tech) Juwan Zavala MD INTERROGATION REMOTE </90 D TOWERMAN REVIEW completed AICD Interrogation, Remote (Prof) Juwan Zavala MD INTERROGATION EVAL REMOTE </90 D 1/2/> LD CVDFB completed Protime Austyn Barfield MD complete d MATTHEW Zavala MD completed Protime Lex Man MD completed Protime Jose doyle MD completed Georgette Zavala MD completed Georgette Zavala MD completed Georgette Zavala MD completed Georgette Zavala MD completed Georgette Zavala MD completed Georgette Zavala MD completed Georgette Zavala MD completed Georgette Zavala MD completed Georgette Zavala MD completed AICD Interrogation, Remote (Tech) Juwan Zavala MD INTERROGATION REMOTE </90 D TOWERMAN REVIEW completed AICD Interrogation, Remote (Prof) Juwan [...] Juwan Zavala MD INTERROGATION REMOTE </90 D TOWERMAN REVIEW completed AICD Interrogation, Remote (Prof) Juwan [...] completed EKG Juwan Zavala MD completed SNOMED-CT: [id number] Current Medications Documented Juwan Zavala MD completed [...] Juwan Zavala MD INTERROGATION REMOTE </90 D TOWERMAN REVIEW completed AICD Interrogation, Remote (Prof) Juwan [...] Juwan Zavala MD INTERROGATION REMOTE </90 D TOWERMAN REVIEW completed AICD Interrogation, Remote (Prof) Juwan [...] completed EKG Juwan Zavala MD completed SNOMED-CT: [id number] Current Medications Documented Juwan Zavala MD completed [...] Juwan Zavala MD INTERROGATION REMOTE </90 D TOWERMAN REVIEW completed AICD Interrogation, Remote (Prof) Juwan [...] Juwan Zavala MD INTERROGATION REMOTE </90 D TOWERMAN REVIEW completed AICD Interrogation, Remote (Prof) Juwan [...] Juwan Zavala MD INTERROGATION REMOTE </90 D TOWERMAN REVIEW completed AICD Interrogation, Remote (Prof) Juwan [...] SPECT Images Juwan Zavala MD completed SNOMED-CT: [id number] Physical Exam, Performed: Pulse Exam of Foot Juwan Zavala MD completed Protime Juwan Zavala MD completed EKG Juwan Zavala MD completed SNOMED-CT: [id number] Current Medications Documented Juwan Zavala MD completed ICM Interrogation, Remote (Prof) Juwan Zavala MD INTERROGATION EVAL REMOTE </30 D CV MNTR SYS completed AICD Interrogation, Remote (Tech) Juwan Zavala MD INTERROGATION REMOTE </90 D TOWERMAN REVIEW completed AICD Interrogation, Remote (Prof) Juwan [...] Juwan Zavala MD INTERROGATION REMOTE </90 D TOWERMAN REVIEW completed AICD Interrogation, Remote (Prof) Juwan Zavala MD INTERROGATION EVAL REMOTE </90 D 1/2/> LD CVDFB completed EKG Juwan Zavala MD completed SNOMED-CT: [id number] Current Medications Documented Juwan Zavala MD completed [...] Juwan Zavala MD INTERROGATION REMOTE </90 D TOWERMAN REVIEW completed AICD Interrogation, Remote (Prof) Juwan [...] Jose doyle MD completed BLOOD COUNT HEMOGLOBIN Jose rock MD completed Schedule Followup ulius Cat [...]
--- OUTSIDE RECORDS SUMMARY | 2024-12-25 20:08 | XMS_ITS | Clinical Summary ---
Author Organization [facility] [employer] Address [address] [place] [address] Care Team Providers Care Film Crew Member Name Role Phone Madi Garcia MD Primary Care Provider + [phone] Source Comments [facility] [employer],non-owned Affiliates and Associated Physician Practices is amultiple site organization consisting of ambulatory clinics and hospital sitesin [place], [place], [place] and [place]. This disclosure is being madepursuant to the Care Everywhere program and may not contain all information available regarding this patient. Last updated 18.[facility] [employer] Allergies Active Allergy Reactions Criticality Noted Date [...] Noted Date Diagnosed Date Coronary atherosclerosis of la posta coronary francesca ry 07/17/2013 Encounter for other [...] on file Legal Sex Male 1:45 PM [employer] Gender Identity Not on file Sexual Orientation Not on file Last Filed Vital Signs Vital Sign Reading Time Taken Comments Blood Pressure 114/80 07/16/2013 2:27 PM [employer] Pulse 94 07/16/2013 2:27 PM [employer] Temperature - - Respiratory Rate - - Oxygen Saturation 98% 07/16/2013 2:27 PM [employer] WORK[employer] Inhaled Oxygen Concentration - - Weight 66.2 kg (146 lb) 07/16/2013 2:27 PM [employer] Height - - Body Mass Index - [...] complete this topic Insurance MEDICARE Care Teams Film Crew Member Relationship Specialty Start Date End Date Madi Garcia MD [address] [place] [address] PCP - General Internal Medicine 07/16/13
--- NOTE | 2024-12-25 20:25 | ED.URI ---
HPI - URI/Sore Throat General Chief Complaint: Arrhythmia/Palpitations <Darcy Muniz PA-C - Last Filed: 12/25/24 22:35> Stated Complaint: Hx of Afib (out of meds), HR jumping around <Darcy Muniz PA-C - Last Filed: 12/25/24 22:35> Time Seen by Provider: 12/25/24 19:55 <LEOBARDO Mccall Last Filed: 12/25/24 22:35> Source: patient <Darcy Muniz PA-C - Last Filed: 12/25/24 22:35> Mode of arrival: ambulatory <LEOBARDO Mccall Last Filed: 12/25/24 22:35> Limitations: no limitations <LEOBARDO Mccall Last Filed: 12/25/24 22:35> History of Present Illness HPI Narrative: This is a 74 year old male that presents to the ER for cold symptoms. Present over the last 5 days. Reports he has been taking Augmentin with little relief. Reports continued productive cough, shortness of breath. Denies fevers, chest pain. <Darcy Muniz PA-C - Last Filed: 12/25/24 22:35> Related Data Home Medications: Home Medications ?Medication ?Instructions ?Recorded ?Confirmed ?Last Taken ?Type dofetilide 250 mcg capsule 250 mcg PO Q12H 12/04/24 12/26/24 Unknown History magnesium oxide 400 mg (241.3 mg 400 mg PO QAM 12/04/24 12/26/24 Unknown History magnesium) tablet diltiazem HCl 90 mg tablet 90 mg PO BID 12/24/24 12/26/24 Unknown History apixaban 2.5 mg tablet (Eliquis) 2.5 mg PO Q12H 12/26/24 12/26/24 Unknown History furosemide 40 mg tablet 40 mg PO DAILY 12/26/24 12/26/24 Unknown History rosuvastatin 10 mg tablet 10 mg PO DAILY 12/26/24 12/26/24 Unknown History <LEOBARDO Mccall Last Filed: 12/25/24 22:35> Allergies/Adverse Reactions: Allergies Allergy/AdvReac Type Severity Reaction Status Date / Time codeine AdvReac Mild HALLUCINATI Verified 12/24/24 14:03 ONS <Darcy Muniz PA-C - Last Filed: 12/25/24 22:35> Review of Systems Review of Systems: CONSTITUTIONAL: Denies fever CARDIOVASCULAR: Denies chest pain, or edema. RESPIRATORY: Reports cough and dyspnea. <Darcy Muniz PA-C - Last Filed: 12/25/24 22:35> All systems reviewed & are unremarkable except as noted in HPI and below <Darcy Muniz PA-C - Last Filed: 12/25/24 22:35> [facility] Past Medical History Medical History: Medical History Cough Benign paroxysmal positional vertigo due to bilateral vestibular disorder Acute bronchitis GERD (gastroesophageal reflux disease) Chronic kidney disease (CKD) stage G3a/A2, moderately decreased glomerular filtration rate (GFR) between 45-59 mL/min/1.73 square meter and albuminuria creatinine ratio between 30-299 mg/g (~12/13/23) BUN 28, creatinine 1.40 with GFR 49 on 12/13/2023. BUN 26, creatinine 1.3 with GFR 54 on 04/27/2024. BPH without obstruction/lower urinary tract symptoms PSA 2.1 on 12/13/2023. BPPV (benign paroxysmal positional vertigo) Encounter for prostate cancer screening PSA 2.1 on 12/13/2023. History of malignant melanoma right forearm with wide excision 2020 Chronic atrial fibrillation BMI 24.0-24.9, adult Ischemic cardiomyopathy with implantable cardioverter-defibrillator (ICD) Recent ejection fraction of 15%. Echo 02/21/2024 with severe global left ventricular hypokinesis with ejection fraction of 25% with moderate mitral valve regurgitation. Echo with ejection fraction 25% and grade 2 diastolic dysfunction on 04/30/2024. Echo with ejection fraction 20% 2024. Mixed hyperlipidemia Cholesterol 243, triglycerides 123, HDL 52, LDL 139 on 12/13/2023. Cholesterol 226, triglycerides 116, HDL 42, LDL 145 on 04/27/2024. Chronic anxiety Seasonal allergic rhinitis Chronic low back pain with right-sided sciatica x-ray of the lumbar spine on 09/18/2023 reveals mild degenerative changes of the lumbar spine COVID-19 Iron deficiency anemia Iron 116 with 32% saturation and ferritin 71.5 with hemoglobin 15.2 on 12/13/2023. Elevated LFTs Acute kidney injury Elevated troponin CAD (coronary artery disease) acute MA with stents. Atrial fibrillation with RVR Acute on chronic heart failure with reduced ejection fraction and diastolic dysfunction Current use of residential anticoagulation Pacemaker Dizziness Transaminitis Afib CHF (congestive heart failure) HTN (hypertension) HLD (hyperlipidemia) COPD (chronic obstructive pulmonary disease) Heart disease Skin cancer <Darcy Muniz PA-C - Last Filed: 12/25/24 22:35> Family History Family History: Family History Father Heart disease Other Cerebrovascular accident Mother Kidney failure Heart disease Acute myocardial infarction <Darcy Muniz PA-C - Last Filed: 12/25/24 22:35> Social History Social History: Social History Social History: Patient lives on his own. He denies having any children or pets. Jorge his brother is his surrogate. and he wishes to be a full code. Smoking packs per day: 0.5 Smoking cigarettes per day: 10.0 Years smoked: 18 Smoking pack-years: 9.00 Smoking status: Never smoker Tobacco type: cigarettes Second hand tobacco smoke exposure: No Smoking end date: 07/08/14 Alcohol intake: current Drinks per week: 1 Alcohol use details: beer Substance use: never Substance use type: does not use Do You Feel Safe in your Home?: Yes Lack of Transportation: No Lack of Food: Never True Current Housing: I Have Housing Concerned About Future Housing: No Difficulty Paying Gas/Electric Bills: No Difficulty Paying for Meds: YES Currently Unemployed: No Education: High School Diploma/GED Difficulty w/ Childcare or Family Care: No Living arrangements: alone Gender identity (if verbalized by the patient): Male Sexual Orientation (if Verbalized by the Patient): Straight or Heterosexual Spiritual care concerns: No Agree to blood products: Yes <Darcy Muniz PA-C - Last Filed: 12/25/24 22:35> Exam Narrative: GENERAL: Well-appearing, well-nourished, and in no acute distress. HEAD: Normocephalic, atraumatic. EYES: EOMI. ENT: Nares clear, no rhinorrhea or epistaxis. Mucous membranes moist. Oropharynx without tonsillar hypertrophy exudate or other lesions. NECK: Supple. No adenopathy or masses. CHEST: No respiratory distress. Diffuse wheezing, rales at the lung bases. No rhonchi HEART: Regular rate and rhythm. No murmur heard. Normal peripheral pulses. EXTREMITIES: Normal range of motion. No edema. SKIN: Warm, dry, no rash. NEURO: No focal deficits. Alert and oriented x3. PSYCH: Normal mood and affect <Darcy Muniz PA-C - Last Filed: 12/25/24 22:35> Course Course Emergency Course: Patient updated on his workup and recommendation for admission <Darcy Muniz PA-C - Last Filed: 12/25/24 22:35> [employer] CONTACT [employer]INTER/PA Physician Supervision Patient admitted for COPD exacerbation. I did hear PA discuss patient with admitting hospitalist. I was available for consultation while patient was in the emergency department but did not personally evaluate patient and was not directly involved in their care. <Donita Iraheta MD - Last Filed: 12/26/24 18:04> Consultations Consultation #1: Spoke with hospitalist about patient and workup who accepts admission <Darcy Muniz PA-C - Last Filed: 12/25/24 22:35> Date: 12/25/24 <Darcy Muniz PA-C - Last Filed: 12/25/24 22:35> Vital Signs Vital signs: Vital Signs Temperature 98 F 12/25/24 19:21 Pulse Rate 97 12/25/24 19:21 Respiratory Rate 20 12/25/24 19:21 Blood Pressure 116/72 12/25/24 19:21 Pulse Oximetry 92 12/25/24 19:21 Oxygen Delivery Room Air 12/25/24 19:21 Temperature 98.5 F 12/26/24 14:00 Pulse Rate 101 H 12/26/24 14:01 Respiratory Rate 18 12/26/24 14:01 Blood Pressure 123/76 12/26/24 14:00 Pulse Oximetry 93 12/26/24 14:00 Oxygen Delivery Nasal Cannula 12/26/24 08:00 Oxygen Flow Rate 2 12/26/24 08:00 Fraction of Inspired Oxygen 28 12/26/24 08:00 <Darcy Muniz PA-C - Last Filed: 12/25/24 22:35> Vital Signs Temperature 98 F 12/25/24 19:21 Pulse Rate 97 12/25/24 19:21 Respiratory Rate 20 12/25/24 19:21 Blood Pressure 116/72 12/25/24 19:21 Pulse Oximetry 92 12/25/24 19:21 Oxygen Delivery Room Air 12/25/24 19:21 Temperature 98.5 F 12/26/24 14:00 Pulse Rate 101 H 12/26/24 14:01 Respiratory Rate 18 12/26/24 14:01 Blood Pressure 123/76 12/26/24 14:00 Pulse Oximetry 93 12/26/24 14:00 Oxygen Delivery Nasal Cannula 12/26/24 08:00 Oxygen Flow Rate 2 12/26/24 08:00 Fraction of Inspired Oxygen 28 12/26/24 08:00 <Donita Iraheta MD - Last Filed: 12/26/24 18:04> MDM - URI/Sore Throat MDM Narrative Medical decision making narrative: Patient presents to the emergency department for cough, shortness of breath. History of COPD. He is afebrile and nontoxic appearing. Vitals are stable. Cbc without leukocytosis. Metabolic panel with kidney function that appears to be around baseline. Chest x-ray is without focal infiltrate or effusion. CT scan was obtained for further delineation. This shows severe panlobular emphysema with bronchiectasis. BNP is not concerningly elevated. Baseline troponin is negative. Patient will be admitted for further management of COPD exacerbation failing outpatient therapy <Darcy Muniz PA-C - Last Filed: 12/25/24 22:35> Differential Diagnosis Differential diagnosis: Likely upper respiratory infection, viral infection, bronchitis, influenza and other (Pneumonia, COPD exacerbation, bronchiectasis) <Darcy Muniz PA-C - Last Filed: 12/25/24 22:35> Lab Data Attestation: I reviewed the patient's lab results. <Darcy Muniz PA-C - Last Filed: 12/25/24 22:35> Result diagrams: 12/25/24 19:16 12/25/24 19:16 <Darcy Muniz PA-C - Last Filed: 12/25/24 22:35> Labs: Lab Results 12/25/24 12/25/24 12/25/24 Range/Units 19:16 22:01 22:24 WBC 7.9 (4.5-10.0) K/mm3 RBC 4.97 (4.6-6.20) M/mm3 Hgb 14.4 (14.0-18.0) g/dL Hct 44.9 (42.0-52.0) % MCV 90.3 (80-100) fl MCH 29.0 (26-34) pg MCHC 32.1 (32-36) g/dl RDW 13.0 (11.5-14.5) % Plt Count 297 (150-375) k/mm3 MPV 9.2 (7.4-10.4) fl Immature Gran % (Auto) 0.3 (0-0.5) % Neut % (Auto) 68.3 (45.5-73.1) % Lymph % (Auto) 20.3 (18.3-44.2) % [place] % (Auto) 7.8 (2.6-8.5) % Eos % (Auto) 2.4 (0-4.4) % Baso % (Auto) 0.9 (0.2-1.2) % Lymph # (Auto) 1.61 (0.9-3.2) K/mm3 [place] # (Auto) 0.6 (0.1-0.6) K/mm3 Eos # (Auto) 0.2 (0-0.3) K/mm3 Baso # (Auto) 0.1 (0.0-0.1) K/mm3 Abs Immat Gran (auto) 0.02 (0.00-0.031) K/mm3 Absolute Neuts (auto) 5.4 (1.3-6.7) K/mm3 Absolute Nucleated RBC 0.000 (0.0-0.012) K/mm3 Nucleated RBC % 0.0 (0.0-0.2) % PT 14.1 (11.1-14.7) Seconds INR 1.0 APTT 28.2 (22.3-36.8) Seconds Sodium 137 (137-145) mmol/L Potassium 4.1 (3.4-5.0) mmol/L Chloride 99 (98-107) mmol/L Carbon Dioxide 29 (22-30) mmol/L Anion Gap 9 (4-12) mmol/L BUN 40 H (9-20) mg/dL Creatinine 1.62 H (0.7-1.3) mg/dL Estim Creat Clear Calc 34 ml/min Estimated GFR 42 L (59 - ) Glucose 127 H (65-110) mg/dL Calcium 9.3 (8.4-10.2) mg/dL Total Bilirubin 1.4 H (0.2-1.3) mg/dL AST 29 (17-59) U/L ALT 17 (6-50) U/L Alkaline Phosphatase 39 (38-126) U/L Troponin I < 0.012 < 0.012 (0.000-0.034) ng/mL NT-Pro-B Natriuret Pep 1670 H (19.9-100) pg/mL Total Protein 8.0 (6.3-8.2) g/dL Albumin 4.6 (3.5-5.1) g/dL Lipase 181 (23-300) U/L Influenza A (RT-PCR) Negative (Negative) Influenza B (RT-PCR) Negative (Negative) RSV (RT-PCR) Negative (Negative) SARS-CoV-2 RNA (RT-PCR) Negative (Negative) <Darcy Muniz PA-C - Last Filed: 12/25/24 22:35> Lab Results 12/25/24 12/25/24 12/25/24 Range/Units 19:16 22:01 22:24 WBC 7.9 (4.5-10.0) K/mm3 RBC 4.97 (4.6-6.20) M/mm3 Hgb 14.4 (14.0-18.0) g/dL Hct 44.9 (42.0-52.0) % MCV 90.3 (80-100) fl MCH 29.0 (26-34) pg MCHC 32.1 (32-36) g/dl RDW 13.0 (11.5-14.5) % Plt Count 297 (150-375) k/mm3 MPV 9.2 (7.4-10.4) fl Immature Gran % (Auto) 0.3 (0-0.5) % Neut % (Auto) 68.3 (45.5-73.1) % Lymph % (Auto) 20.3 (18.3-44.2) % [place] % (Auto) 7.8 (2.6-8.5) % Eos % (Auto) 2.4 (0-4.4) % Baso % (Auto) 0.9 (0.2-1.2) % Lymph # (Auto) 1.61 (0.9-3.2) K/mm3 [place] # (Auto) 0.6 (0.1-0.6) K/mm3 Eos # (Auto) 0.2 (0-0.3) K/mm3 Baso # (Auto) 0.1 (0.0-0.1) K/mm3 Abs Immat Gran (auto) 0.02 (0.00-0.031) K/mm3 Absolute Neuts (auto) 5.4 (1.3-6.7) K/mm3 Absolute Nucleated RBC 0.000 (0.0-0.012) K/mm3 Nucleated RBC % 0.0 (0.0-0.2) % PT 14.1 (11.1-14.7) Seconds INR 1.0 APTT 28.2 (22.3-36.8) Seconds Sodium 137 (137-145) mmol/L Potassium 4.1 (3.4-5.0) mmol/L Chloride 99 (98-107) mmol/L Carbon Dioxide 29 (22-30) mmol/L Anion Gap 9 (4-12) mmol/L BUN 40 H (9-20) mg/dL Creatinine 1.62 H (0.7-1.3) mg/dL Estim Creat Clear Calc 34 ml/min Estimated GFR 42 L (59 - ) Glucose 127 H (65-110) mg/dL Calcium 9.3 (8.4-10.2) mg/dL Total Bilirubin 1.4 H (0.2-1.3) mg/dL AST 29 (17-59) U/L ALT 17 (6-50) U/L Alkaline Phosphatase 39 (38-126) U/L Troponin I < 0.012 < 0.012 (0.000-0.034) ng/mL NT-Pro-B Natriuret Pep 1670 H (19.9-100) pg/mL Total Protein 8.0 (6.3-8.2) g/dL Albumin 4.6 (3.5-5.1) g/dL Lipase 181 (23-300) U/L Influenza A (RT-PCR) Negative (Negative) Influenza B (RT-PCR) Negative (Negative) RSV (RT-PCR) Negative (Negative) SARS-CoV-2 RNA (RT-PCR) Negative (Negative) <Donita Iraheta MD - Last Filed: 12/26/24 18:04> Imaging Data Radiologist's impression: ITS Impressions Chest X-Ray 12/25/24 19:59 IMPRESSION: Prior granulomatous disease, without focal infiltrate or effusion. If clinical suspicion persists, cross-sectional imaging (noncontrast enhanced CT examination of the chest) is suggested for further evaluation. Chest CT 12/25/24 20:36 IMPRESSION: Severe panlobular emphysematous disease with diffuse cylindrical bronchiectasis. Additional findings suggesting prior granulomatous disease. <Darcy Muniz PA-C - Last Filed: 12/25/24 22:35> ECG Data EKG #1: ECG completion date: 12/25/24 <Darcy Muniz PA-C - Last Filed: 12/25/24 22:35> EKG Interpretation: normal rate and other (dual chamber pacemaker) <Darcy Muniz PA-C - Last Filed: 12/25/24 22:35> Critical Care Time Critical Care Time Critical Care Time: No <Darcy Muniz PA-C - Last Filed: 12/25/24 22:35> Discharge Plan Discharge Clinical Impression: COPD exacerbation Bronchiectasis Qualifiers: Bronchiectasis type: with acute exacerbation Qualified Code(s): J47.1 - Bronchiectasis with (acute) exacerbation <Darcy Muniz PA-C - Last Filed: 12/25/24 22:35> Patient Disposition: Still a Patient <Darcy Muniz PA-C - Last Filed: 12/25/24 22:35> Condition: Stable <LEOBARDO Mccall Last Filed: 12/25/24 22:35>
[2024-12-25] MEDS: IPRATROPIUM 0.5 MG/ALBUTEROL SULFATE 2.5 MG AMPUL.NEB 3 ML INHALATION (20:38)
[2024-12-25 20:39] VITALS: PULSE 94; RESP 18
[2024-12-25 20:46] VITALS: PULSE 92; RESP 18
[2024-12-25] MEDS: methylPREDNISolone SOD SUCC 125 MG VIAL IV PUSH (20:51)
[2024-12-25] MEDS: MAGNESIUM SULF 1 GM/D5W 100 ML 1 GM/100 ML BAG IVPB (20:51)
[2024-12-25 21:11] LABS: NT Pro B Type Natriuretic Pept 1670 pg/mL (19.9-100)
[2024-12-25] MEDS: levoFLOXacin 750 MG/D5W 150 ML 750 MG/150 ML BAG 100 MG IVPB (21:57)
[2024-12-25 22:05] VITALS: BP 124/73; PULSE 88; RESP 21; O2SAT 93
--- NOTE | 2024-12-25 22:17 | ECG_ITS ---
Test Date: 2024-12-25 22:28:26 Measurements Intervals [place] Rate: 92 P: 79 AR: 183 QRS: -31 QRSD: 106 T: 87 QT: 373 QTc: 462 Interpretive Statements SINUS RHYTHM WITH OCCASIONAL VENTRICULAR PREMATURE COMPLEXES LEFT AXIS DEVIATION [QRS AXIS < -30] LOW QRS VOLTAGE IN EXTREMITY LEADS [QRS DEFLECTION < 0.5 mV IN LIMB LEADS] Compared to ECG 12/25/2024 19:10:15 Ventricular premature complex(es) now present Atrial-paced complex(es) or rhythm no longer present Electronically Signed On 12-26-2024 17:10:57 CDT by James Romo M.D.
[2024-12-25 22:43] LABS: Influenza A QL RT-PCR Negative (Negative); Influenza B QL RT-PCR Negative (Negative); RSV RNA, RT-PCR Negative (Negative); SARS-CoV-2 RNA PCR Negative (Negative)
[2024-12-25 22:50] LABS: Troponin I < 0.012 ng/mL (0.000-0.034)
[2024-12-25 23:42] VITALS: BP 128/88; PULSE 105; RESP 20; O2SAT 91
[2024-12-25 23:57] VITALS: BP 126/91; PULSE 100; RESP 16; TEMP 36.4; O2SAT 91
[2024-12-25 23:58] VITALS: BMI 22.8
[2024-12-26] VITALS (14 sets, daily range): BP systolic 122–137; BP diastolic 76–84; PULSE 89–102; RESP 13–20; TEMP 36.4–36.9; O2SAT 86–94
--- NOTE | 2024-12-26 00:02 | ADMGEN ---
This patient, Karin Jackson, was admitted to [facility] Surg Room 312-01 at approx 2355. Patient/family oriented to hospital policies and general routines including ID bracelet, bed and alarms, visiting hours, pain management, procedures, bathroom and other care routines, personal items, smoking policy, room service/diet, and visiting hours. Information on how to activate the Rapid Response Team has been discussed. Patient/Family are encouraged to report perceived risks to care and to ask questions if they do not understand what they are told or what they should do.
[2024-12-26 01:54] LABS: Troponin I < 0.012 ng/mL (0.000-0.034)
[2024-12-26] MEDS: IPRATROPIUM 0.5 MG/ALBUTEROL SULFATE 2.5 MG AMPUL.NEB 3 ML INHALATION ×4 (02:24→20:21)
[2024-12-26] MEDS: methylPREDNISolone SOD SUCC 125 MG VIAL 40 MG IV PUSH ×4 (05:55→23:38)
--- NOTE | 2024-12-26 07:19 | P.HP_ITS ---
H&P: HPI History of Present Illness Date/Time: 12/26/24 07:19 Chief Complaint: cough, palpitations Narrative: 74 y.o male wth PMH/o afib, chf (systolic) copd, ckd (stage 3) He had transesophageal echo with cardioversion on 07/10/24 admitted for management of COPD exacerbation failing outpatient therapy. He was seen per his PCP on 12/24 where he reported started feeling sick-coughing and sneezing on 12/20 marce after being around someone who was sick. Reported white phlegm. He has fatigue. He started Augmentin 3 days ago and feels his cough is sl improved. Denies fever or chills. The day before, he called the office with HR ranging from 49-114, he was instructed to go to ER, but he did not go. He has some lightheadedness. He does not drink much water. 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 He presented to ed for continuous cough and despite being on augmentin - having no relief. IN ED: afebrile and nontoxic appearing. Vitals are stable. CBC without leukocytosis. Metabolic panel with kidney function that appears to be around baseline. Chest x-ray is without focal infiltrate or effusion. CT scan was obtained for further delineation. This shows severe panlobular emphysema with bronchiectasis. BNP 1670. Baseline troponin is negative. Chest X-Ray 12/25/24 19:59 IMPRESSION: Prior granulomatous disease, without focal infiltrate or effusion. Chest CT 12/25/24 20:36 IMPRESSION: Severe panlobular emphysematous disease with diffuse cylindrical bronchiectasis. Additional findings suggesting prior granulomatous disease. ECG Data EKG #1: ECG completion date: 12/25/24 EKG Interpretation: normal rate and other (dual chamber pacemaker) Pt is seen and examined. He is resting ne beds, Oxygen 2l per nc, but he takes it off at times as it irritates his nose. Review of Systems Review of Systems: All systems reviewed & are unremarkable except as noted in HPI and below (h/p) [facility] Past Medical History Medical History Cough Benign paroxysmal positional vertigo due to bilateral vestibular disorder Acute bronchitis GERD (gastroesophageal reflux disease) Chronic kidney disease (CKD) stage G3a/A2, moderately decreased glomerular filtration rate (GFR) between 45-59 mL/min/1.73 square meter and albuminuria creatinine ratio between 30-299 mg/g (~12/13/23) BUN 28, creatinine 1.40 with GFR 49 on 12/13/2023. BUN 26, creatinine 1.3 with GFR 54 on 04/27/2024. BPH without obstruction/lower urinary tract symptoms PSA 2.1 on 12/13/2023. BPPV (benign paroxysmal positional vertigo) Encounter for prostate cancer screening PSA 2.1 on 12/13/2023. History of malignant melanoma right forearm with wide excision 2020 Chronic atrial fibrillation BMI 24.0-24.9, adult Ischemic cardiomyopathy with implantable cardioverter-defibrillator (ICD) Recent ejection fraction of 15%. Echo 02/21/2024 with severe global left ventricular hypokinesis with ejection fraction of 25% with moderate mitral valve regurgitation. Echo with ejection fraction 25% and grade 2 diastolic dysfunction on 04/30/2024. Echo with ejection fraction 20% 2024. Mixed hyperlipidemia Cholesterol 243, triglycerides 123, HDL 52, LDL 139 on 12/13/2023. Cholesterol 226, triglycerides 116, HDL 42, LDL 145 on 04/27/2024. Chronic anxiety Seasonal allergic rhinitis Chronic low back pain with right-sided sciatica x-ray of the lumbar spine on 09/18/2023 reveals mild degenerative changes of the lumbar spine COVID-19 Iron deficiency anemia Iron 116 with 32% saturation and ferritin 71.5 with hemoglobin 15.2 on 12/13/2023. Elevated LFTs Acute kidney injury Elevated troponin CAD (coronary artery disease) acute SC with stents. 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 He denies having any children or pets. Jorge his brother is his surrogate. and he wishes to be a full code. Smoking packs per day: 0.5 Smoking cigarettes per day: 10.0 Years smoked: 18 Smoking pack-years: 9.00 Smoking status: Never smoker Tobacco type: cigarettes Second hand tobacco smoke exposure: No Smoking end date: 07/08/14 Alcohol intake: current Drinks per week: 1 Alcohol use details: beer Substance use: never Substance use type: does not use Do You Feel Safe in your Home?: Yes Lack of Transportation: No Lack of Food: Never True Current Housing: I Have Housing Concerned About Future Housing: No Difficulty Paying Gas/Electric Bills: No Difficulty Paying for Meds: YES Currently Unemployed: No Education: High School Diploma/GED Difficulty w/ Childcare or Family Care: No Living arrangements: alone Gender identity (if verbalized by the patient): Male Sexual Orientation (if Verbalized by the Patient): Straight or Heterosexual Spiritual care concerns: No Agree to blood products: Yes Meds Home Medications and Allergies Home Medications ?Medication ?Instructions ?Recorded ?Confirmed ?Type sacubitril 24 mg-valsartan 26 mg 0.5 tablet PO BID #30 tabs 07/23/24 12/26/24 Rx tablet clonazepam 0.5 mg tablet 0.5 mg PO QHS PRN anxiety #30 tabs 09/10/24 12/26/24 Rx dofetilide 250 mcg capsule 250 mcg PO Q12H 12/04/24 12/26/24 History magnesium oxide 400 mg (241.3 mg 400 mg PO QAM 12/04/24 12/26/24 History magnesium) tablet amoxicillin 875 mg-potassium 1 tablet PO BID #20 tabs 12/21/24 12/26/24 Rx clavulanate 125 mg tablet diltiazem HCl 90 mg tablet 90 mg PO BID 12/24/24 12/26/24 History albuterol sulfate 90 mcg/actuation 2 puff inhalation QID PRN 12/25/24 12/26/24 Rx aerosol inhaler shortness of breath or wheezing #8.5 grams apixaban 2.5 mg tablet (Eliquis) 2.5 mg PO Q12H 12/26/24 12/26/24 History furosemide 40 mg tablet 40 mg PO DAILY 12/26/24 12/26/24 History rosuvastatin 10 mg tablet 10 mg PO DAILY 12/26/24 12/26/24 History Allergies Allergy/AdvReac Type Severity Reaction Status Date / Time codeine AdvReac Mild HALLUCINATI Verified 12/24/24 14:03 ONS Vital Signs Vital Signs - 24 hr 12/25/24 19:21 12/25/24 20:39 12/25/24 20:46 Temperature 98 F Pulse Rate 97 94 92 Respiratory Rate 20 18 18 Blood Pressure 116/72 Pulse Oximetry 92 Oxygen Delivery Room Air Oxygen Flow Rate Fraction of Inspired Oxygen 12/25/24 22:05 12/25/24 22:05 12/25/24 23:42 Temperature Pulse Rate 88 105 H Respiratory Rate 21 H 20 Blood Pressure 124/73 128/88 Pulse Oximetry 93 93 91 Oxygen Delivery Room Air Oxygen Flow Rate Fraction of Inspired Oxygen 12/25/24 23:57 12/26/24 00:46 12/26/24 02:20 Temperature 97.6 F Pulse Rate 100 100 Respiratory Rate 16 16 Blood Pressure 126/91 H Pulse Oximetry 91 91 86 L Oxygen Delivery Room Air Room Air Oxygen Flow Rate Fraction of Inspired Oxygen 12/26/24 02:22 12/26/24 02:30 12/26/24 02:41 Temperature Pulse Rate 100 102 H Respiratory Rate 18 18 Blood Pressure Pulse Oximetry 91 Oxygen Delivery Nasal Cannula Oxygen Flow Rate 2 Fraction of Inspired Oxygen 28 12/26/24 05:58 Temperature 97.6 F Pulse Rate 100 Respiratory Rate 16 Blood Pressure 122/84 Pulse Oximetry 92 Oxygen Delivery Oxygen Flow Rate Fraction of Inspired Oxygen Exam Const: General: comfortable Resp: Effort & Inspection: normal respiratory effort Auscultation: diminished lung sounds Other: coarse Cardio: Rate: tachycardic Rhythm: regular rhythm GI: GI Palp: Yes Soft to palpation Auscultation: normal bowel sounds Neuro: Speech: normal speech Motor exam (neuro): 5/5 motor strength present throughout Psych: Mental Status: mental status grossly normal Affect: normal affect H&P: Results Labs Labs: Short CBC 12/25/24 Range/Units 19:16 WBC 7.9 (4.5-10.0) K/mm3 Hgb 14.4 (14.0-18.0) g/dL Hct 44.9 (42.0-52.0) % Plt Count 297 (150-375) k/mm3 BMP 12/25/24 19:16 Sodium 137 Potassium 4.1 Chloride 99 Carbon Dioxide 29 BUN 40 H Creatinine 1.62 H Glucose 127 H Calcium 9.3 Cardiac Enzymes 12/25/24 12/25/24 12/26/24 Range/Units 19:16 22:24 01:21 Troponin I < 0.012 < 0.012 < 0.012 (0.000-0.034) ng/mL Liver Function 12/25/24 Range/Units 19:16 Total Bilirubin 1.4 H (0.2-1.3) mg/dL AST 29 (17-59) U/L ALT 17 (6-50) U/L Alkaline Phosphatase 39 (38-126) U/L Albumin 4.6 (3.5-5.1) g/dL Assessment and Plan Assessment and plan (1) Chronic anxiety: Code(s): F41.9 - Anxiety disorder, unspecified Status: Acute (2) HTN (hypertension): Qualifiers: Hypertension type: primary hypertension Qualified Code(s): I10 - Essential (primary) hypertension Code(s): I10 - Essential (primary) hypertension Status: Chronic (3) Chronic atrial fibrillation: Code(s): I48.20 - Chronic atrial fibrillation, unspecified Status: Acute (4) ICD (implantable cardioverter-defibrillator) in place: Code(s): Z95.810 - Presence of automatic (implantable) cardiac defibrillator Status: Acute (5) Mixed hyperlipidemia: Code(s): E78.2 - Mixed hyperlipidemia Status: Acute (6) GERD (gastroesophageal reflux disease): Qualifiers: Esophagitis presence: without esophagitis Qualified Code(s): K21.9 - Gastro-esophageal reflux disease without esophagitis Code(s): K21.9 - Gastro-esophageal reflux disease without esophagitis Status: Acute (7) Chronic kidney disease (CKD) stage G3a/A2, moderately decreased glomerular filtration rate (GFR) between 45-59 mL/min/1.73 square meter and albuminuria creatinine ratio between 30-299 mg/g: Onset Date: ~12/13/23 Code(s): N18.31 - Chronic kidney disease, stage 3a Status: Chronic (8) Acute bronchitis: Code(s): J20.9 - Acute bronchitis, unspecified Status: Acute (9) COPD exacerbation: Code(s): J44.1 - Chronic obstructive pulmonary disease with (acute) exacerbation Status: Acute Plan 74 y.o male wth PMH/o afib, chf (systolic) copd, ckd (stage 3) He had transesophageal echo with cardioversion on 07/10/24 admitted for management of COPD exacerbation failing outpatient therapy. He was on Augmentin with no relief to his symptoms. WBC normal, Chest x-ray is without focal infiltrate or effusion. CT scan was obtained for further delineation, panlobular emphysema with bronchiectasis. BNP is slightly elevated. Baseline troponin is negative. Patient admitted for further management of COPD exacerbation failing outpatient therapy (Augmentin) Likely upper respiratory infection, viral infection, bronchitis, influenza and other (Pneumonia, COPD exacerbation, bronchiectasis) - Dionebs q6h prn - methylprednisolone 125 mg iv x 1 given in ed, 40 mg iv q6 now - will continue Levaquin, pharmacy to renally dose - add mucinex monitor resp status trend labs, vs, temp - restart home meds for chf and afib - monitor i/o - restart home meds for gerds, anxiety, hld - wean o2 if able DVT prophylaxis: continue home eliquis Full code Quality VTE Prophylaxis VTE prophylaxis: pharmacologic ordered Hospitalist MIPS Advance Care Plan I have confirmed that the patient's Advanced Care Plan is present, code status is documented, or surrogate decision maker is listed in patient medical record.: Yes Medication Reconciliation I have utilized all available resources to obtain, update and review the patients current medications (includes all prescriptions, OTC, herbals, cannabis, and nutritional supplements).: Yes The patient is not eligible for med reconciliation; the patient is in a emergent medical situation where delaying treatment would jeopardize the patients health.: Yes
[2024-12-26] MEDS: MAGNESIUM OXIDE 400 MG TABLET PO (09:06)
[2024-12-26] MEDS: FUROSEMIDE 40 MG TABLET PO (09:06)
[2024-12-26] MEDS: ROSUVASTATIN 10 MG TABLET PO (09:06)
[2024-12-26] MEDS: SACUBITRIL/VALSARTAN 12-13 MG TABLET 1 TAB PO ×2 (09:10→20:36)
[2024-12-26] MEDS: dilTIAZem HCL 30 MG TABLET 90 MG PO ×2 (09:11→20:35)
[2024-12-26] MEDS: APIXABAN 2.5 MG TABLET PO ×2 (11:20→20:35)
[2024-12-26] MEDS: CALCIUM CARBONATE (TUMS) 500 MG (200 MG ELEMENTAL) PO ×2 (14:28→23:38)
[2024-12-26] MEDS: ACETAMINOPHEN 325 MG TABLET 650 MG PO (18:38)
[2024-12-26] MEDS: MELATONIN 5 MG TABLET PO (20:35)
[2024-12-26] MEDS: guaiFENesin 12 HR 600 MG TABCR 1200 MG PO (20:35)
[2024-12-26] MEDS: clonazePAM (*CRX) 0.5 MG TABLET PO (23:38)
[2024-12-27] VITALS (11 sets, daily range): BP systolic 113–123; BP diastolic 64–82; PULSE 76–103; RESP 12–18; TEMP 36.3–36.8; O2SAT 90–97
[2024-12-27] MEDS: IPRATROPIUM 0.5 MG/ALBUTEROL SULFATE 2.5 MG AMPUL.NEB 3 ML INHALATION ×4 (02:32→20:26)
[2024-12-27] MEDS: methylPREDNISolone SOD SUCC 125 MG VIAL 40 MG IV PUSH ×2 (05:15→12:33)
[2024-12-27 06:54] LABS: Hematocrit 42.5 % (42.0-52.0); Hemoglobin 13.7 g/dL (14.0-18.0); Mean Corpuscular HGB Conc 32.2 g/dl (32-36); Mean Corpuscular Hemoglobin 29.3 pg (26-34); Mean Corpuscular Volume 90.8 fl (80-100); Mean Platelet Volume 9.1 fl (7.4-10.4); Platelet Count Result 288 k/mm3 (150-375); Red Blood Count 4.68 M/mm3 (4.6-6.20); Red Cell Distribution Width 13.2 % (11.5-14.5); White Blood Count 13.9 K/mm3 (4.5-10.0)
[2024-12-27 07:04] LABS: Alanine Aminotransferase 18 U/L (6-50); Albumin Level 3.9 g/dL (3.5-5.1); Alkaline Phosphatase 36 U/L (38-126); Anion Gap 7 mmol/L (4-12); Aspartate Amino Transferase 24 U/L (17-59); Bilirubin,Total 0.8 mg/dL (0.2-1.3); Blood Urea Nitrogen 47 mg/dL (9-20); Calcium 9.5 mg/dL (8.4-10.2); Carbon Dioxide 27 mmol/L (22-30); Chloride 103 mmol/L (98-107); Estimated CRCL calculation 41 ml/min; Estimated Glomerular Filt Rate 52; Glucose 160 mg/dL (65-110); Potassium 4.6 mmol/L (3.4-5.0); Sodium 137 mmol/L (137-145)
--- NOTE | 2024-12-27 07:46 | P.PNIM_ITS ---
Progress Note: A&P Assessment and Plan (1) Chronic anxiety: Code(s): F41.9 - Anxiety disorder, unspecified Status: Acute (2) HTN (hypertension): Qualifiers: Hypertension type: primary hypertension Qualified Code(s): I10 - Essential (primary) hypertension Code(s): I10 - Essential (primary) hypertension Status: Chronic (3) Chronic atrial fibrillation: Code(s): I48.20 - Chronic atrial fibrillation, unspecified Status: Acute (4) ICD (implantable cardioverter-defibrillator) in place: Code(s): Z95.810 - Presence of automatic (implantable) cardiac defibrillator Status: Acute (5) Mixed hyperlipidemia: Code(s): E78.2 - Mixed hyperlipidemia Status: Acute (6) GERD (gastroesophageal reflux disease): Qualifiers: Esophagitis presence: without esophagitis Qualified Code(s): K21.9 - Gastro-esophageal reflux disease without esophagitis Code(s): K21.9 - Gastro-esophageal reflux disease without esophagitis Status: Acute (7) Chronic kidney disease (CKD) stage G3a/A2, moderately decreased glomerular filtration rate (GFR) between 45-59 mL/min/1.73 square meter and albuminuria creatinine ratio between 30-299 mg/g: Onset Date: ~12/13/23 Code(s): N18.31 - Chronic kidney disease, stage 3a Status: Chronic (8) Acute bronchitis: Code(s): J20.9 - Acute bronchitis, unspecified Status: Acute (9) COPD exacerbation: Code(s): J44.1 - Chronic obstructive pulmonary disease with (acute) exacerbation Status: Acute Plan 74 y.o male [facility] PMH/o afib, chf (systolic) copd, ckd (stage 3) He had trans esophageal echo with cardioversion on 07/10/24 admitted for management of COPD exacerbation failing outpatient therapy. He was on Augmentin with no relief to his symptoms. WBC normal, Chest x-ray is without focal infiltrate or effusion. CT scan was obtained for further delineation, panlobular emphysema with bronchiectasis. BNP is slightly elevated. Baseline troponin is negative. Patient admitted for further management of COPD exacerbation failing outpatient therapy (Augmentin) Likely upper respiratory infection, viral infection, bronchitis, influenza and other (Pneumonia, COPD exacerbation, bronchiectasis) - Dionebs q6h prn - methylprednisolone 125 mg iv x 1 given in ed, 40 mg iv q6 now - will continue Levaquin, pharmacy to renally dose - add mucinex monitor resp status trend labs, vs, temp - restart home meds for chf and afib - monitor i/o - restart home meds for gerds, anxiety, hld - wean o2 if able 12/27- on ra today slight increase in wbc encourage IS, ambulation stop iV steroid and add prednisone 40 mg po DVT prophylaxis: continue home eliquis Full code Time Spent With Patient Time with patient: 25 - 35 minutes Subjective Date/time seen: 12/27/24 07:46 Interval history: 74 y.o male wth PMH/o afib, chf (systolic) copd, ckd (stage 3) He had transesophageal echo with cardioversion on 07/10/24 admitted for management of COPD exacerbation failing outpatient therapy. He was seen per his PCP on 12/24 where he reported started feeling sick-coughing and sneezing on 12/20 marce after being around someone who was sick. Reported white phlegm. He has fatigue. He started Augmentin 3 days ago and feels his cough is sl improved. Denies fever or chills. The day before, he called the office with HR ranging from 49-114, he was instructed to go to ER, but he did not go. He has some lightheadedness. He does not drink much water. 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 He presented to ed for continuous cough and despite being on Augmentin - having no relief. IN ED: afebrile and nontoxic appearing. Vitals are stable. CBC without leukocytosis. Metabolic panel with kidney function that appears to be around baseline. Chest x-ray is without focal infiltrate or effusion. CT scan was obtained for further delineation. This shows severe panlobular emphysema with bronchiectasis. BNP 1670. Baseline troponin is negative. Chest X-Ray 12/25/24 19:59 IMPRESSION: Prior granulomatous disease, without focal infiltrate or effusion. Chest CT 12/25/24 20:36 IMPRESSION: Severe panlobular emphysematous disease with diffuse cylindrical bronchiectasis. Additional findings suggesting prior granulomatous disease. ECG Data EKG #1: ECG completion date: 12/25/24 EKG Interpretation: normal rate and other (dual chamber pacemaker) 12/27- pt is seen and examined. He is on RA now. Mucinex is ordered. IS encouraged. Still weak and gets SOB easy but slowly improving. Anticipate discharge in the next day or two. Review of Systems Review of Systems: All systems reviewed & are unremarkable except as noted in HPI and below (h/p) Exam Const: General: comfortable Resp: Effort & Inspection: normal respiratory effort Auscultation: diminished lung sounds Other: coarse Cardio: Rate: tachycardic Rhythm: regular rhythm GI: Auscultation: normal bowel sounds Neuro: Speech: normal speech Motor exam (neuro): 5/5 motor strength present throughout Psych: Mental Status: mental status grossly normal Affect: normal affect Objective Data Vital Signs Vital Signs: Vital Signs - 24 hr 12/26/24 07:54 12/26/24 07:54 12/26/24 08:00 Temperature Pulse Rate 101 H Respiratory Rate 20 Blood Pressure Pulse Oximetry 92 94 Oxygen Delivery Nasal Cannula Nasal Cannula Oxygen Flow Rate 2 2 Fraction of Inspired Oxygen 28 12/26/24 13:54 12/26/24 14:00 12/26/24 14:01 Temperature 98.5 F Pulse Rate 99 89 101 H Respiratory Rate 18 18 18 Blood Pressure 123/76 Pulse Oximetry 93 Oxygen Delivery Oxygen Flow Rate Fraction of Inspired Oxygen 12/26/24 20:00 12/26/24 20:21 12/26/24 20:21 Temperature Pulse Rate 97 97 Respiratory Rate 16 16 Blood Pressure Pulse Oximetry 91 Oxygen Delivery Room Air Nasal Cannula Oxygen Flow Rate 2 Fraction of Inspired Oxygen 12/26/24 20:35 12/26/24 20:40 12/27/24 02:32 Temperature 98.2 F Pulse Rate 98 97 76 Respiratory Rate 16 13 16 Blood Pressure 137/84 Pulse Oximetry 90 90 Oxygen Delivery Room Air Oxygen Flow Rate Fraction of Inspired Oxygen 21 12/27/24 02:32 12/27/24 02:45 12/27/24 05:53 Temperature 97.3 F L Pulse Rate 76 77 89 Respiratory Rate 16 18 13 Blood Pressure 113/70 Pulse Oximetry 97 Oxygen Delivery Oxygen Flow Rate Fraction of Inspired Oxygen Intake/Output Intake/Output: Intake & Output 12/24/24 12/25/24 12/26/24 12/27/24 23:59 23:59 23:59 23:59 Intake Total 250 672 400 Output Total 200 Balance 250 472 400 Meds/Results Medications: Active Medications Generic Name Dose Route Start Last Admin Trade Name Freq PRN Reason Stop Dose Admin Acetaminophen 650 mg 12/26/24 18:29 12/26/24 18:38 Acetaminophen 325 Mg Tablet PO 650 mg Q4H PRN Administration Mild Pain (1-3) or Fever Albuterol 2 puff 12/26/24 08:19 Albuterol Sulfate (*Sp) Aerosol 1 Puff INHALATION QID PRN shortness of breath or wheezing Albuterol/Ipratropium 3 ml 12/26/24 02:00 12/27/24 02:32 Ipratropium 0.5 Mg/Albuterol Sulfate 2.5 Mg Ampul.Neb 3 Ml INHALATION 3 ml Q6HRT TJ Administration Apixaban 2.5 mg 12/26/24 10:05 12/26/24 20:35 Apixaban 2.5 Mg Tablet PO 2.5 mg Q12HR TJ Administration Calcium Carbonate 200 mg 12/26/24 12:38 12/26/24 23:38 Calcium Carbonate (Tums) 500 Mg (200 Mg Elemental) PO 200 mg Q6H PRN Administration Indigestion Clonazepam 0.5 mg 12/26/24 08:19 12/26/24 23:38 Clonazepam (*Crx) 0.5 Mg Tablet PO 0.5 mg QHS PRN Administration anxiety Diltiazem HCl 90 mg 12/26/24 09:00 12/26/24 20:35 Diltiazem Hcl 30 Mg Tablet PO 90 mg Q12HR TJ Administration Furosemide 40 mg 12/26/24 09:00 12/26/24 09:06 Furosemide 40 Mg Tablet PO 40 mg DAILY TJ Administration Guaifenesin 1,200 mg 12/26/24 21:00 12/26/24 20:35 Guaifenesin 12 Hr 600 Mg Tabcr PO 1,200 mg Q12HR TJ Administration Levofloxacin/Dextrose 750 mg in 150 mls @ 100 mls/hr 12/27/24 21:00 Levaquin 750 Mg/D5w 150 Ml IVPB Q48H TJ Magnesium Oxide 400 mg 12/26/24 09:00 12/26/24 09:06 Magnesium Oxide 400 Mg Tablet PO 400 mg QAM TJ Administration Melatonin 5 mg 12/26/24 21:00 12/26/24 20:35 Melatonin 5 Mg Tablet PO 5 mg HS TJ Administration Methylprednisolone Sodium Succinate 40 mg 12/26/24 06:00 12/27/24 05:15 Methylprednisolone Sod Succ 125 Mg Vial IV PUSH 40 mg Q6HR TJ Administration Nonform Dofetilide 250 mcg 12/26/24 09:00 12/26/24 20:35 250 Mcg Capsule PO 01/25/25 08:59 250 mcg Q12HR TJ Administration Rosuvastatin Calcium 10 mg 12/26/24 09:00 12/26/24 09:06 Rosuvastatin 10 Mg Tablet PO 10 mg DAILY TJ Administration Sacubitril/Valsartan 1 tab 12/26/24 09:00 12/26/24 20:36 Sacubitril/Valsartan 12-13 Mg Tablet PO 1 tab Q12HR TJ Administration Radiology Results: ITS Impressions Chest X-Ray 12/25/24 19:59 IMPRESSION: Prior granulomatous disease, without focal infiltrate or effusion. If clinical suspicion persists, cross-sectional imaging (noncontrast enhanced CT examination of the chest) is suggested for further evaluation. Chest CT 12/25/24 20:36 IMPRESSION: Severe panlobular emphysematous disease with diffuse cylindrical bronchiectasis. Additional findings suggesting prior granulomatous disease. Labs Labs: Laboratory Results - last 24 hr 12/27/24 06:47 WBC 13.9 H RBC 4.68 Hgb 13.7 L Hct 42.5 MCV 90.8 MCH 29.3 MCHC 32.2 RDW 13.2 Plt Count 288 MPV 9.1 Sodium 137 Potassium 4.6 Chloride 103 Carbon Dioxide 27 Anion Gap 7 BUN 47 H Creatinine 1.33 H Estim Creat Clear Calc 41 Estimated GFR 52 L Glucose 160 H Calcium 9.5 Total Bilirubin 0.8 AST 24 ALT 18 Alkaline Phosphatase 36 L Total Protein 7.0 Albumin 3.9 Quality VTE Prophylaxis VTE prophylaxis: pharmacologic ordered
[2024-12-27] MEDS: ROSUVASTATIN 10 MG TABLET PO (08:26)
[2024-12-27] MEDS: guaiFENesin 12 HR 600 MG TABCR 1200 MG PO ×2 (08:26→20:40)
[2024-12-27] MEDS: MAGNESIUM OXIDE 400 MG TABLET PO (08:26)
[2024-12-27] MEDS: dilTIAZem HCL 30 MG TABLET 90 MG PO ×2 (08:26→20:40)
[2024-12-27] MEDS: APIXABAN 2.5 MG TABLET PO ×2 (08:26→20:40)
[2024-12-27] MEDS: FUROSEMIDE 40 MG TABLET PO (08:26)
[2024-12-27] MEDS: SACUBITRIL/VALSARTAN 12-13 MG TABLET 1 TAB PO ×2 (08:26→20:40)
[2024-12-27] MEDS: CALCIUM CARBONATE (TUMS) 500 MG (200 MG ELEMENTAL) PO ×2 (12:42→17:55)
[2024-12-27] MEDS: PANTOPRAZOLE 40 MG TABLET PO (17:55)
[2024-12-27] MEDS: clonazePAM (*CRX) 0.5 MG TABLET PO (20:40)
[2024-12-27] MEDS: MELATONIN 5 MG TABLET PO (20:40)
[2024-12-27] MEDS: levoFLOXacin 750 MG/D5W 150 ML 750 MG/150 ML BAG 100 MG IVPB (20:41)
[2024-12-27] MEDS: ACETAMINOPHEN 325 MG TABLET 650 MG PO (22:15)
[2024-12-28] MEDS: IPRATROPIUM 0.5 MG/ALBUTEROL SULFATE 2.5 MG AMPUL.NEB 3 ML INHALATION ×2 (02:34→07:29)
[2024-12-28 02:35] VITALS: PULSE 88; RESP 16
[2024-12-28 02:43] VITALS: PULSE 84; RESP 14
[2024-12-28 05:21] VITALS: BP 109/69; PULSE 84; RESP 16; TEMP 36.9; O2SAT 95
[2024-12-28 07:31] VITALS: PULSE 100; RESP 16; O2SAT 92
[2024-12-28 07:41] VITALS: PULSE 86; RESP 16
[2024-12-28 08:22] LABS: Hematocrit 47.5 % (42.0-52.0); Hemoglobin 15.2 g/dL (14.0-18.0); Mean Corpuscular Hemoglobin 29.3 pg (26-34); Mean Corpuscular Volume 91.5 fl (80-100); Mean Platelet Volume 9.2 fl (7.4-10.4); Platelet Count Result 330 k/mm3 (150-375); Red Blood Count 5.19 M/mm3 (4.6-6.20); Red Cell Distribution Width 13.3 % (11.5-14.5); White Blood Count 17.3 K/mm3 (4.5-10.0)
[2024-12-28] MEDS: dilTIAZem HCL 30 MG TABLET 90 MG PO (08:35)
[2024-12-28] MEDS: APIXABAN 2.5 MG TABLET PO (08:35)
[2024-12-28] MEDS: guaiFENesin 12 HR 600 MG TABCR 1200 MG PO (08:35)
[2024-12-28] MEDS: ROSUVASTATIN 10 MG TABLET PO (08:36)
[2024-12-28] MEDS: FUROSEMIDE 40 MG TABLET PO (08:36)
[2024-12-28] MEDS: predniSONE 20 MG TABLET 40 MG PO (08:36)
[2024-12-28] MEDS: SACUBITRIL/VALSARTAN 12-13 MG TABLET 1 TAB PO (08:36)
[2024-12-28] MEDS: MAGNESIUM OXIDE 400 MG TABLET PO (08:36)
[2024-12-28] MEDS: PANTOPRAZOLE 40 MG TABLET PO (08:36)
[2024-12-28 08:40] LABS: Alanine Aminotransferase 32 U/L (6-50); Albumin Level 4.4 g/dL (3.5-5.1); Alkaline Phosphatase 36 U/L (38-126); Anion Gap 11 mmol/L (4-12); Aspartate Amino Transferase 43 U/L (17-59); Bilirubin,Total 0.7 mg/dL (0.2-1.3); Blood Urea Nitrogen 55 mg/dL (9-20); Calcium 10.3 mg/dL (8.4-10.2); Carbon Dioxide 28 mmol/L (22-30); Chloride 101 mmol/L (98-107); Estimated CRCL calculation 42 ml/min; Estimated Glomerular Filt Rate 55; Glucose 128 mg/dL (65-110); Sodium 140 mmol/L (137-145)
[2024-12-28 09:20] LABS: Anisocytosis 1+; Band Neutrophils Percent 6 % (0-6); Lymphocytes Absolute Manual 1.03 K/mm3 (1.1-4.5); Lymphocytes Percent Manual 6 % (18-44); Monocytes Absolute Manual 1.21 K/mm3 (0.1-0.90); Monocytes Percent Manual 7 % (3-9); Neutrophils Absolute Manual 15.05 K/mm3 (1.3-6.7); Neutrophils Percent Manual 81 % (46-73); Platelet Estimate Adequate (Adequate); Schistocytes None Seen; Total Cells Counted 100
--- NOTE | 2024-12-28 11:26 | P.DS_ITS ---
DS: Admitting Diagnosis Discharge Date 12/28 Admitting Diagnosis sob, copd exacerbation DS: Discharge Diagnosis Discharge Diagnosis (1) Chronic anxiety: Code(s): F41.9 - Anxiety disorder, unspecified Status: Acute (2) HTN (hypertension): Qualifiers: Hypertension type: primary hypertension Qualified Code(s): I10 - Essential (primary) hypertension Code(s): I10 - Essential (primary) hypertension Status: Chronic (3) Chronic atrial fibrillation: Code(s): I48.20 - Chronic atrial fibrillation, unspecified Status: Acute (4) ICD (implantable cardioverter-defibrillator) in place: Code(s): Z95.810 - Presence of automatic (implantable) cardiac defibrillator Status: Acute (5) Mixed hyperlipidemia: Code(s): E78.2 - Mixed hyperlipidemia Status: Acute (6) GERD (gastroesophageal reflux disease): Qualifiers: Esophagitis presence: without esophagitis Qualified Code(s): K21.9 - Gastro-esophageal reflux disease without esophagitis Code(s): K21.9 - Gastro-esophageal reflux disease without esophagitis Status: Acute (7) Chronic kidney disease (CKD) stage G3a/A2, moderately decreased glomerular filtration rate (GFR) between 45-59 mL/min/1.73 square meter and albuminuria creatinine ratio between 30-299 mg/g: Onset Date: ~12/13/23 Code(s): N18.31 - Chronic kidney disease, stage 3a Status: Chronic (8) Acute bronchitis: Code(s): J20.9 - Acute bronchitis, unspecified Status: Acute (9) COPD exacerbation: Code(s): J44.1 - Chronic obstructive pulmonary disease with (acute) exacerbation Status: Acute DS: Summary Hospital Course Hospital Course: 74 y.o male [facility] PMH/o afib, chf (systolic) copd, ckd (stage 3) He had transesophageal echo with cardioversion on 07/10/24 admitted for management of COPD exacerbation failing outpatient therapy. He was on Augmentin with no relief to his symptoms. WBC normal, Chest x-ray is without focal infiltrate or effusion. CT scan was obtained for further delineation, panlobular emphysema with bronchiectasis. BNP is slightly elevated. Baseline troponin is negative. Patient admitted for further management of COPD exacerbation failing outpatient therapy (Augmentin) Likely upper respiratory infection, viral infection, bronchitis, influenza and other (Pneumonia, COPD exacerbation, bronchiectasis) - Duonebs q6h prn - methylprednisolone 125 mg iv x 1 given in ed, 40 mg iv q6- down graded to prednisone taper 12/27 - continue Levaquin, pharmacy to [place] dose - will send the rest home to complete the course - add mucinex- continue at home - was on oxygen but able to titrate down and stop yesterday, 12/27 remains on RA and stable -will need a clsoe f/u with pcp-within 1-2 weeks -will repeat CBC-within 1 week-ordered Status at Discharge Functional status at discharge: independent ambulation Overall status at discharge: patient is progressing back to baseline Time Spent with Patient Time attestation: Total time spent providing and/or coordinating discharge services: Time spent: Greater than 30 minutes Exam Narrative: alert, oriented, feeling better today Const: General: comfortable Resp: Effort & Inspection: normal respiratory effort Other: coarse but better this morning Cardio: Rate: regular rate Rhythm: regular rhythm GI: Auscultation: normal bowel sounds Neuro: Speech: normal speech Motor exam (neuro): 5/5 motor strength present throughout Psych: Mental Status: mental status grossly normal Affect: normal affect DS: Data Data Completed and Pending Labs on day of discharge: Labs from last 24 hours 12/28/24 08:15 WBC 17.3 H RBC 5.19 Hgb 15.2 Hct 47.5 MCV 91.5 MCH 29.3 MCHC 32.0 RDW 13.3 Plt Count 330 MPV 9.2 Immature Gran % (Auto) Not Reportable Neut % (Auto) Not Reportable Lymph % (Auto) Not Reportable Logan % (Auto) Not Reportable Eos % (Auto) Not Reportable Baso % (Auto) Not Reportable Lymph # (Auto) Not Reportable Logan # (Auto) Not Reportable Eos # (Auto) Not Reportable Baso # (Auto) Not Reportable Abs Immat Gran (auto) Not Reportable Absolute Neuts (auto) Not Reportable Absolute Nucleated RBC Not Reportable Total Counted 100 Neutrophils % (Manual) 81 H Band Neutrophils % 6 Lymphocytes % (Manual) 6 L Monocytes % (Manual) 7 Nucleated RBC % Not Reportable Abs Neuts (Manual) 15.05 H Abs Lymphs (Manual) 1.03 L Abs Monocytes (Manual) 1.21 H Platelet Estimate Adequate Anisocytosis 1+ Schistocytes None seen Sodium 140 Potassium 5.0 Chloride 101 Carbon Dioxide 28 Anion Gap 11 BUN 55 H Creatinine 1.28 Estim Creat Clear Calc 42 Estimated GFR 55 L Glucose 128 H Calcium 10.3 H Total Bilirubin 0.7 AST 43 ALT 32 Alkaline Phosphatase 36 L Total Protein 8.0 Albumin 4.4 Discharge Plan Discharge Attending physician on discharge: Armani Gallardo Consulting providers: Ev Mas Discharging Clinician: Tamara Hummel Patient Disposition: Home Activity: may shower Diet: heart healthy Discharge Instructions: You were admitted for COPD/SOB. WE started you on antibiotics, levaquin- you have two doses left: please take as directed- next dose on 12/29 at 9 pm, and last dose 12/31 at 9 pm. Please tote that this medication was given to you NOT daily (due to decreased kidney function). Continue prednisone steroid taper- you received a dose today, so have 4 more daily doses left, start on 12/29. As we discussed, have your labs rechecked within a week (before you f/u with PCP). Continue to take mucinex - you can get it over the counter. Stay hydrated and move around. If you start feeling worse, more shortness of breath, cough and/or develop any new or worsening symptoms, please return to ER. Patient Instructions: Antibiotic Form, Sacubitril/Valsartan (By mouth), Heart Failure (GEN), Low-Sodium Diet (GEN), Living With Your Heart Failure Monitoring System (GEN), Pacemaker (GEN), Left-sided and Right-sided Heart Failure (GEN) Patient Language: Faroese Stand Alone Forms: General Discharge Information Follow-up/Referrals: Nj Espino MD [Primary Care Provider] - 2 Weeks Discharge Medications: New prednisone 20 mg Tablet 40 mg PO DAILY@0800 Qty: 4 0RF Rx Instructions: next dose on 12/29 levofloxacin 750 mg tablet 750 mg PO DAILY Qty: 2 0RF Rx Instructions: 2 doses left: next dose on 12/29 at 9 pm, and last one on 12/31 at 9 pm. Continued sacubitril-valsartan 24-26 mg tablet 0.5 tablet PO BID Qty: 30 0RF Rx Instructions: Patient need to cut the Entresto tablet into half and take it as twice a day magnesium oxide 400 mg (241.3 mg magnesium) tablet 400 mg PO QAM dofetilide 250 mcg capsule 250 mcg PO Q12H diltiazem HCl 90 mg tablet 90 mg PO BID rosuvastatin 10 mg tablet 10 mg PO DAILY furosemide 40 mg tablet 40 mg PO DAILY Eliquis 2.5 mg tablet 2.5 mg PO Q12H clonazepam 0.5 mg tablet 0.5 mg PO QHS PRN (Reason: anxiety) Qty: 30 5RF Rx Instructions: administer 30 minutes before bedtime albuterol sulfate 90 mcg/actuation HFA aerosol inhaler 2 puff INHALATION QID PRN (Reason: shortness of breath or wheezing) Qty: 8.5 11RF Discontinued amoxicillin-pot clavulanate 875-125 mg tablet 1 tablet PO BID Qty: 20 0RF Other Ambulatory Orders: Basic Metabolic Panel (Routine) Timeframe: 1 Week Location: Determined by Patient Ordered By: Tamara Hummel Complete Blood Count no Diff (Routine) Timeframe: 1 Week Location: Determined by Patient Ordered By: Tamara Hummel Date of admission: 12/27/24 13:37 Primary Care Provider: Nj Espino Admitting Provider: Saniya Campbell Attending physician on admission: Saniya Campbell Condition: Stable Quality VTE Prophylaxis VTE prophylaxis: pharmacologic ordered Hospitalist MIPS Heart Failure (Exclusion) Patient has history of Heart Transplant or Left Ventricular Assistive Device?: No IF YES, STOP HERE Heart Failure (Qualifier) Patient has current or prior documentation of LVEF less than or equal to 40%, or mod/servere depressed LVSF?: No IF NO, STOP HERE
[2024-12-28] MEDS: ACETAMINOPHEN 325 MG TABLET 650 MG PO (11:30)
[2024-12-28] MEDS: CALCIUM CARBONATE (TUMS) 500 MG (200 MG ELEMENTAL) PO (11:46)
== END 2024-12-28 13:08 | disposition home or self-care (01) | DRG 191 ==
LOC: ANHED 22:31 → ANH3MEDSUR 23:27
PROVIDERS: Emergency Medicine; Admitting Provider Internal Medicine; Emergency Provider Physician Assistant; PCP Family Medicine; Visit Provider Nurse Practitioner
DX: J44.1 Chronic obstructive pulmonary disease with (acute) exacerbation (principal); I13.0 Hypertensive heart and chronic kidney disease with heart failure and stage 1 through stage 4 chronic kidney disease, or unspecified chronic kidney disease; J47.1 Bronchiectasis with (acute) exacerbation; I50.42 Chronic combined systolic (congestive) and diastolic (congestive) heart failure; I48.20 Chronic atrial fibrillation, unspecified; J06.9 Acute upper respiratory infection, unspecified; K21.9 Gastro-esophageal reflux disease without esophagitis; N18.31 Chronic kidney disease, stage 3a; N40.0 Benign prostatic hyperplasia without lower urinary tract symptoms; E78.2 Mixed hyperlipidemia; F41.9 Anxiety disorder, unspecified; D50.9 Iron deficiency anemia, unspecified; I25.10 Atherosclerotic heart disease of native coronary artery without angina pectoris; Z20.822 Contact with and (suspected) exposure to COVID-19; Z95.810 Presence of automatic (implantable) cardiac defibrillator; I25.2 Old myocardial infarction; Z85.820 Personal history of malignant melanoma of skin; Z95.5 Presence of coronary angioplasty implant and graft; Z86.16 Personal history of COVID-19; Z79.01 Long term (current) use of anticoagulants
CPT/HCPCS: 36415; 71045; 71046; 71250; 80053; 83690; 83880; 84484; 85025; 85027; 85610; 85730; 87070; 87205; 87637; 93005; 94640; 94667; 94668; 96365; 96367; 96375; 99285; A9270; G0378; J1956; J2919; J3475; J7512

== ENCOUNTER 2025-03-31 10:25 | Emergency (ER) | payer MEDICARE, SELFPAY ==
--- OUTSIDE RECORDS SUMMARY | 2025-03-29 12:14 | XMS_ITS | Encounter Summary ---
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, right (HCC) Procedures CT Chest Abdomen Pelvis W Contrast CT Chest Abdomen Pelvis W Contrast Brian Min MD [address] [facility] [address] [place] [address] Phone: tel: fax: [address] [phone] Referral ID Status Reason Start Date Expiration Date Visits Re quested Visits Authorized [id number] Closed 11/02/2024 12/02/2025 1 1 Reason for Visit * MRI/CAT/PET Scan (Routine) - Closed Specialty Diagnoses / Procedures Referred By Contac t Referred To Contact Radiology Diagnoses 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 [address] [facility] 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 Gender Identity Not on file Sexual Orientation Not on file documented as of this encounter Medications at Time of Discharge acetaminophen (TYLENOL) 500 mg tablet Take 1 tablet (500 mg total) by mouth every 6 (six) hours as needed for pain or headaches albuterol HFA (PROVENTIL HFA,VENTOLIN HFA,PROAIR HFA) 90 mcg/actuation inhaler Inhale 1-2 puffs every 4 (four) hours as needed 04/19/2020 amiodarone (PACERONE) 200 mg tablet Take 200 mg by mouth nightly apixaban (ELIQUIS) 2.5 mg tablet Eliquis 2.5 mg tablet 08/05/1969 atorvastatin (LIPITOR) 40 mg tabletIndication s:hyperlipidemia Take 40 mg by mouth nightly azelastine (ASTELIN) 137 mcg (0.1 %) nasal spray Administer 1 spray into each nostril 2 (two) times a day 12/16/2023 azithromycin (ZITHROMAX) 250 mg tablet 04/21/2021 Breztri Aerosphere 160-9-4.8 mcg/actuation inhalerIndicatio ns: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),Melanoma of forearm, right (HCC) Inhale 2 puffs 2 (two) times a day 04/09/2024 budesonide (PULMICORT) 0.5 mg/2 mL nebulizer solution 10/21/2019 carvediloL (COREG) 3.125 mg tablet Take 1 tablet (3.125 mg total) by mouth 2 (two) times a day 02/21/2023 cephalexin (KEFLEX) 500 mg capsule TAKE ONE CAPSULE BY MOUTH EVERY 8 HOURS FOR INFECTION 03/22/2025 clonazePAM (KlonoPIN) 1 mg tabletIndication s:sleep Take 0.5 tablets (0.5 mg total) by mouth nightly 08/15/2018 dofetilide (TIKOSYN) 250 mcg capsule 03/26/2025 doxycycline hyclate 100 mg capsule 04/26/2021 Entresto 24-26 mg tablet Take 1 tablet by mouth 2 (two) times a day 11/08/2023 furosemide (LASIX) 40 mg tabletIndication s:take for Short of breath Take 1 tablet (40 mg total) by mouth daily as needed 08/11/2018 gabapentin (NEURONTIN) 100 mg capsule Take 1 capsule (100 mg total) by mouth 2 (two) times a day 12/11/2023 ipratropium-albu teroL (DUO-NEB) 0.5-2.5 mg/3 mL nebulizer solution 10/21/2019 losartan (COZAAR) 25 mg tabletIndication s:hypertension Take 1 tablet (25 mg total) by mouth nightly metoprolol XL (TOPROL-XL) 25 mg extended release tablet TAKE ONE TABLET BY MOUTH EVERY MORNING FOR BLOOD PRESSURE 03/19/2025 ondansetron (ZOFRAN) 4 mg tablet Take 1 tablet (4 mg total) by mouth every 4 (four) hours as needed for nausea or vomiting 20 tablet 03/25/2019 oxyCODONE-acetam inophen (PERCOCET) 5-325 mg per tablet TAKE ONE TABLET BY MOUTH EVERY TWELVE HOURS NEEDED FOR PAIN 03/23/[address] (PROTONIX) 40 mg EC tablet Take 1 tablet (40 mg total) by mouth daily 11/24/2020 potassium chloride (KLOR-CON) 20 mEq packetIndication s:hypokalemia prevention Take 1 packet (20 mEq total) by mouth nightly predniSONE (DELTASONE) 20 mg tablet 04/21/2021 predniSONE (DELTASONE) 50 mg tablet 04/26/2021 rosuvastatin (CRESTOR) 10 mg tablet Take 1 tablet (10 mg total) by mouth daily 12/22/2024 tamsulosin (FLOMAX) 0.4 mg extended release capsuleIndicatio ns:prostate Take 0.4 mg by mouth nightly documented as of this encounter Discharge Disposition Disposition Code Departure Means Destination Discharge to home or self care documented in this encounter Plan of Treatment Not on file documented as of this encounter Procedures Procedure Name Priority Date/Time Associated Diagnosis Comments CT CHEST ABDOMEN PELVIS W CONTRAST Schedule Routine, Read Routine (OP Routine) 03/29/2025 12:51 PM CDT 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 No evidence of metastatic disease within the chest, abdomen, or pelvis. 2. Left ventricular thrombus with an associated splenic infarct. The Critical results were discussed with Dr. Brian Min by Dr. Antony Ortiz MD PHD on 03/29/2025 1:28 PM. Dictated by: Antony Ortiz MD PHD The radiology attending physician has personally reviewed this study, and had reviewed and/or edited this written report and agrees with it. Electronically signed by: Daniel Eckert M.D. Narrative 03/29/2025 3:43 PM CDT EXAMINATION: CT CHEST ABDOMEN PELVIS W CONTRAST HISTORY: 74-year-old with right upper extremity melanoma status post excision (2018) with axillary willam recurrence (2019) status post immunotherapy (completed 2021). TECHNIQUE: Transaxial computed tomographic images of the chest, abdomen and pelvis were obtained with intravenous contrast according to the standard protocol after the uneventful administration of 69 mL Opti-Ray 350 intravenous contrast. COMPARISON: CT dated 11/02/2024. FINDINGS: CHEST: No supraclavicular, axillary, or mediastinal lymphadenopathy. Scattered subcentimeter mediastinal lymph nodes are non-pathologic enlarged, likely reactive in nature. The heart size is normal without pericardial effusion. Filling defect within the left ventricular cavity (TP -1224.2). The great vessels are normal in course and caliber. A left subclavian transvenous approach pacemaker defibrillator device is noted, with leads terminating within the right atrium and right ventricle. The central airways are clear. No pleural effusion, pulmonary edema, pulmonary consolidation, or pneumothorax. Moderate to severe upper lobe predominant centrilobular emphysema. There is old granulomatous disease. Biapical pleural parenchymal scarring. Esophagus is nondistended. Moderate-sized hiatal hernia. ABDOMEN: No focal hepatic lesion. Gallbladder and pancreas are normal. No intra or extrahepatic biliary ductal dilatation. There is a wedge-shaped area of peripheral hypoattenuation within the anterior aspect of the spleen (TP -1278.2). The spleen demonstrates old granulomatous disease. The adrenal glands are normal. The kidneys enhance symmetrically, without hydronephrosis or nephrolithiasis. Scattered hypoattenuating lesions are too small to characterize, likely representing simple renal cyst. The urinary bladder contains multiple diverticula, greater on the right. The prostate is mildly enlarged. The stomach is nondistended. The duodenal sweep is normal. No evidence of bowel obstruction. Colonic diverticulosis, without evidence of acute diverticulitis. No mesenteric, retroperitoneal, or pelvic lymphadenopathy. Abdominal aorta is normal in course and caliber. The celiac trunk, superior mesenteric artery, and inferior mesenteric artery are patent. The main portal vein, splenic vein, and superior mesenteric vein are suboptimally evaluated on this phase of contrast. No pneumoperitoneum or ascites. No suspicious osseous lesion. Mild multilevel degenerative disc disease of the lumbar spine. Procedure Note Daniel Eckert MD - 03/29/2025 EXAMINATION: CT CHEST ABDOMEN PELVIS W CONTRAST HISTORY: 74-year-old with right upper extremity melanoma status post excision (2018) with axillary willam recurrence (2019) status post immunotherapy (completed 2021). TECHNIQUE: Transaxial computed tomographic images of the chest, abdomen and pelvis were obtained with intravenous contrast according to the standard protocol after the uneventful administration of 69 mL Opti-Ray 350 intravenous contrast. COMPARISON: CT dated 11/02/2024. FINDINGS: CHEST: No supraclavicular, axillary, or mediastinal lymphadenopathy. Scattered subcentimeter mediastinal lymph nodes are non-pathologic enlarged, likely reactive in nature. The heart size is normal without pericardial effusion. Filling defect within the left ventricular cavity (TP -1224.2). The great vessels are normal in course and caliber. A left subclavian transvenous approach pacemaker defibrillator device is noted, with leads terminating within the right atrium and right ventricle. The central airways are clear. No pleural effusion, pulmonary edema, pulmonary consolidation, or pneumothorax. Moderate to severe upper lobe predominant centrilobular emphysema. There is old granulomatous disease. Biapical pleural parenchymal scarring. Esophagus is nondistended. Moderate-sized hiatal hernia. ABDOMEN: No focal hepatic lesion. Gallbladder and pancreas are normal. No intra or extrahepatic biliary ductal dilatation. There is a wedge-shaped area of peripheral hypoattenuation within the anterior aspect of the spleen (TP -1278.2). The spleen demonstrates old granulomatous disease. The adrenal glands are normal. The kidneys enhance symmetrically, without hydronephrosis or nephrolithiasis. Scattered hypoattenuating lesions are too small to characterize, likely representing simple renal cyst. The urinary bladder contains multiple diverticula, greater on the right. The prostate is mildly enlarged. The stomach is nondistended. The duodenal sweep is normal. No evidence of bowel obstruction. Colonic diverticulosis, without evidence of acute diverticulitis. No mesenteric, retroperitoneal, or pelvic lymphadenopathy. Abdominal aorta is normal in course and caliber. The celiac trunk, superior mesenteric artery, and inferior mesenteric artery are patent. The main portal vein, splenic vein, and superior mesenteric vein are suboptimally evaluated on this phase of contrast. No pneumoperitoneum or ascites. No suspicious osseous lesion. Mild multilevel degenerative disc disease of the lumbar spine. IMPRESSION: 1. No evidence of metastatic disease within the chest, abdomen, or pelvis. 2. Left ventricular thrombus with an associated splenic infarct. The Critical results were discussed with Dr. Brian Min by Dr. Antony Ortiz MD PHD on 03/29/2025 1:28 PM. Dictated by: Antony Ortiz MD PHD The radiology attending physician has personally reviewed this study, and had reviewed and/or edited this written report and agrees with it. Electronically signed by: Daniel Eckert M.D. 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 of forearm, right (HCC) documented in this encounter Administered Medications Inactive Administered Medications - up to 3 most recent administrations Medication Order MAR Action Action Date Dose Rate Site ioversoL (OPTIRAY 350) syringe 75 mL 75 mL, intravenous, Once in imaging, contrast, Starting on 03/29/25 at 1242, For 1 dose Contrast Given 03/29/2025 12:50 PM CDT 69 mL documented in this encounter Orders Medications Ordered That Ron ht Not Have Been Administered Count Last Ordered Date First Ordered Date ioversoL (OPTIRAY 350) syringe 75 mL 1 03/06 documented in this encounter Care Teams Test Borer Relationship Specialty Start Date End Date Ambrose Reyes MD Referring Physician Neurosurgery 07/23/18 Marcell Mcaky MD [address] [place] [address] Consulting Physician Plastic Surgery 03/11/19 Ines Carpenter MD [address] [facility] [address] [place] [address] Consulting Physician Internal Medicine 06/04/22 5 [place] [address] [place] [address] Purchase Analyst Cardiology 03/29/25 [place] [address] [address] [employer] Analyst Cardiology 03/29/25 documented as of this encounter
--- OUTSIDE RECORDS SUMMARY | 2025-03-29 16:02 | XMS_ITS | Encounter Summary ---
Author Organization [facility] Healthcare Address [address] [place] [address] Care Team Providers Care Education Finance Processor Name Role Phone Ambrose Reyes MD Unavailable [phone] Marcell Mckay MD Unavailable Ines Carpenter MD Unavailable Jose Ma MD Unavailable Juwan Zavala MD Unavailable Reason for Visit * Reason Comments Circulatory Problem Encounter Details Date Type Department Care Team (Late st Contact Info) Description 03/29/2025 4:02 PM CDT - 03/29/2025 7:02 PM CDT Emergency [facility] [address] [place] [address] Jett Balderrama MD [address] [place] [address] Discharge Disposition: Left Against Medical Advice Social History Tobacco Use Types Packs/Day Years [...] on file 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 Gender Identity Not on file Sexual Orientation Not on file documented as of this encounter Last Filed Vital Signs Vital Sign Reading Time Taken Comments Blood Pressure 138/106 03/29/2025 5:30 PM CDT Pulse 104 03/29/2025 5:30 PM CDT Temperature 36.4 C (97.5 F) 03/29/2025 3:28 PM CDT Respiratory Rate 16 03/29/2025 4:30 PM CDT Oxygen Saturation 98% 03/29/2025 5:30 PM CDT Inhaled Oxygen Concentration - - Weight 71.2 kg (157 lb) 03/29/2025 3:28 PM CDT Height 172.7 cm (5' 8) 03/29/2025 3:28 PM CDT Body Mass Index 23.87 03/29/2025 3:28 PM CDT documented in this encounter Medications at Time of Discharge [...] Discharge Disposition Disposition Code Departure Means Destination Comment s Left Against Medical Advice documented in this encounter Consult Notes * Mandy Clark MD - 03/29/2025 5:44 PM CDTAssociated Order(s): IP CONSULT TO CARDIOLOGY Images from the original note were not included. Cardiology Consult Note - General Cardiology Patient Name: Karin Jackson : 1950 Date of Service: 03/29/25 Requesting Attending: Jett Balderrama MD Reason for Consult: Other: Left Ventricular Thrombus Chief Complaint: LV thrombus on outpatient CT CAP HPI Karin Jackson is a 74 y.o. male with a history of CAD s/p LAD stent (2012), ICM/HFrEF (20%, TTE 2021) s/p ICD with recent generator change 1 week ago, afib on Eliquis 2.5 mg bid, COPD nd malignant melanoma s/p pembrolizumab presenting with LV thrombus on CT CAP. General Cardiology has been consulted for LV thrombus. Briefly, patient has history of ischemic cardiomyopathy and HFrEF. He had NSTEMI and PCI to LAD in 2012. He has a chart history of remote LV mural thrombus and was on warfarin for management. 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 Zavala in [place]; per patient his only heart failure medications are entresto and lasix. Per patient, he has been taking Eliquis 2.5 mgbid for the past year for his atrial fibrillation. He endorses missing doses occasionally and recently holding eliquis for ICD generator change which he reports he underwent 1 week ago with his localEP doctor, Dr. Ma. He presents to the ED today for further management of LV thrombus on outpatient CT CAP from his Oncologist's office. Per review of prior CT CAP in October 2024, no appreciablethrombus, no recent TTE since 2021. Patient also endorses 1 week history of worsening dyspnea on exertion. He denies chest pain or shortness of breath at rest. He denies weight gain, NAVNEET, orthopnea, palpitations, syncope or recent ICD firing. He reports that prior to 1 week ago he could walk a couple of blocks without stopping and now can only walk about 100 ft. He endorses taking lasix every other day as prescribed. He is also on a heart rhythm medication but unsure which one he is taking. He lives with a roommate. He denies current tobacco use, was a former smoked. Endorses rarely drinking beer and denies any other recreational drug use. In the ED, he was afebrile, HDS 138/106, HR 90-104 on RA. Labs significant for Cr 1.11, trop 14 > 16, EKG with NSR without ischemic changes. Review of Systems: Review of systems as per HPI and, otherwise all other systems are negative. PMHX: has a past medical history of Acid reflux, Back pain, Cataract, Dental bridge present, Difficulty hearing, Difficulty walking, Frequent headaches, Full dentures, Heart attack (HCC), Heart disease, Hyperlipidemia, Hypertension, Melanoma (HCC), CT (myocardial infarction) (HCC), and Weakness. PSHX: has a past surgical history that includes Cardiac pacemaker placement (2012); Coronary stent placement (2011); Arm skin lesion biopsy / excision (Right, 11/2018); Melanoma Resection (02/23/2019); and US Guided Biopsy Lymph Node Superficial Left (N/A, 11/04/2019). Family Hx: family history includes Lung cancer in his maternal grandmother and mother's brother; Melanoma in his brother; No Known Problems in his father and mother. Social Hx: reports that he has quit smoking. He started smoking about 31 years ago. He has a 15.8 pack-year smoking history. He has never used smokeless tobacco. He reports that he does not use drugs. No alcohol history on file. Allergies: Allergies Allergen Reactions Codeine Delusions, Other (See comments) and Hallucinations 'Weird dreams' Morphine Rash Home Medications: HOME MEDICATIONS: acetaminophen (TYLENOL) 500 mg tablet albuterol HFA (PROVENTIL HFA,VENTOLIN HFA,PROAIR HFA) 90 mcg/actuation inhaler amiodarone (PACERONE) 200 mg tablet apixaban (ELIQUIS) 2.5 mg tablet atorvastatin (LIPITOR) 40 mg tablet azelastine (ASTELIN) 137 mcg (0.1 %) nasal spray azithromycin (ZITHROMAX) 250 mg tablet Breztri Aerosphere 160-9-4.8 mcg/actuation inhaler budesonide (PULMICORT) 0.5 mg/2 mL nebulizer solution carvediloL (COREG) 3.125 mg tablet cephalexin (KEFLEX) 500 mg capsule clonazePAM (KlonoPIN) 1 mg tablet dofetilide (TIKOSYN) 250 mcg capsule doxycycline hyclate 100 mg capsule Entresto 24-26 mg tablet furosemide (LASIX) 40 mg tablet gabapentin (NEURONTIN) 100 mg capsule ipratropium-albuteroL (DUO-NEB) 0.5-2.5 mg/3 mL nebulizer solution losartan (COZAAR) 25 mg tablet metoprolol XL (TOPROL-XL) 25 mg extended release tablet ondansetron (ZOFRAN) 4 mg tablet oxyCODONE-acetaminophen (PERCOCET) 5-325 mg per tablet pantoprazole DR (PROTONIX) 40 mg EC tablet potassium chloride (KLOR-CON) 20 mEq packet predniSONE (DELTASONE) 20 mg tablet predniSONE (DELTASONE) 50 mg tablet rosuvastatin (CRESTOR) 10 mg tablet tamsulosin (FLOMAX) 0.4 mg extended release capsule warfarin (COUMADIN) 2 mg tablet Current Medications: No current facility-administered medications for this encounter. Objective Vital Signs: 24hr Min/Max: Temp Min: 36.2 ??C (97.2 ??F) Max: 36.4 ??C (97.5 ??F) Pulse Min: 93 Max: 104 BP Min: 130/82 Max: 141/93 Resp Min: 14 Max: 18 SpO2 Min: 96 % Max: 98 % Most Recent: Vitals: 03/29/25 1730 BP: (!) 138/106 Pulse: 104 Resp: Temp: SpO2: 98% Intake/Output: No intake or output data in the 24 hours ending 03/29/25 1744 Physical Exam: General appearance: no acute distress HEENT: NCAT, MMM, anicteric Lungs: CTAB, no w/r/r, non-labored Heart: RRR, S1, S2 normal, no murmur, rub or gallop. JVP not elevated, no LE edema Abdomen: soft, NT/ND; bowel sounds normal Extremities: extremities normal, warm and well-perfused, equal pulses Skin: warm and dry Neurologic: No abnormal movements, non-focal exam Psych: Normal mood and affect Lab/Radiology/Diagnostic Review: Labs: Recent Labs Lab Units 03/29/25 1318 HEMOGLOBIN g/dL 12.9* HEMATOCRIT % 39.4 WBC K/cumm 6.60 PLATELETS K/cumm 271 Recent Labs Lab Units 03/29/25 1557 SODIUM mmol/L 143 POTASSIUM PLASMA mmol/L 4.9 CHLORIDE mmol/L 106 CO2 mmol/L 26 ANIONGAP mmol/L 11 BUN SERUM mg/dL 15 CREATININE mg/dL 1.11 CALCIUM mg/dL 9.9 Recent Labs Lab Units 03/29/25 1557 ALBUMIN g/dL 4.4 ALK PHOS Units/L 43 AST Units/L 21 ALT Units/L 12 BILIRUBIN TOTAL mg/dL 1.5* Recent Labs Lab Units 03/29/25 1318 LACTATE DEHYDROGENASE (LDH) Units/L 207 TSH mcIUnit/mL 1.73 Cultures: Lab Results Component Value Date MICROBIOLOGY (.) 03/22/2019 Final Report: Moderate Staphylococcus aureus For susceptibility results, refer to accession number [id number] on the Abscess culture from 03/22/2019 MICROBIOLOGY (.) 03/22/2019 Final Report: Moderate Staphylococcus aureus Methicillin susceptible (MSSA) by penicillin binding protein 2a (PBP2a) testing. Rare Mixed microorganisms. MICROBIOLOGY (.) 03/22/2019 Final Report: Moderate Staphylococcus aureus For susceptibility results, refer to accession number [id number] on the Abscess culture from 03/22/2019 Few Mixed microorganisms. I personally reviewed the ECG images with the following findings: TTE (OSH, 10/2021): Cardiac catheterization: LHC at OSH in 2012, records not in EMR Assessment/Plan 74 y.o. male with a history of CAD s/p LAD stent (2012), ICM/HFrEF (20%, TTE 2021) s/p ICD with recent generator change 1 week ago, afib on Eliquis 2.5 mg bid, COPD nd malignant melanoma s/p pembrolizumab presenting with LV thrombus on CT CAP. #CAD s/p PCI to LAD #HFrEF s/p ICD #paroxsymal AF #LV thrombus Patient with ischemic cardiomyopathy and chronically reduced EF found to have LV thrombus on outpatient CT CAP (03/29/25), new finding compared to CT CAP in October 2024 presented to the ED for further management; although, chart history of remote LV mural thrombus and was previously on warfarin. We discussed finding with patient who is currently taking Eliquis 2.5 mg BID with missed doses and recent holding of medication iso of ICD gent cahnge 1 week prior. We discussed our recommendation to increase dose to 5 mg BID and follow up with outpatient real estate job titles, or could consider restarting warfarin with inpatient admission. Patient reports that he is short of breath an initially decided to pursue inpatient admission for further work up and initiation of warfarin. However, patient chose to leave the ED prior to admission. Recommendations: - Increase anticoagulation to eliquis 5 mg BID or start warfarin for LV thrombus; discussed both options with patient who initially elected to remain inpatient for warfarin and HF optimization - Outpatient cardiology follow up with patient's local cardiolgist - Offered inpatient admission for HF optimization, but patient ultimately decided to leave from ED We appreciate the ability to be involved in this patient's care. If after 5PM or on weekends, please page the vehicle fuel systems converter personal financial representative with any questions or concerns. Mandy Clark MD Senior Media Buyer 5:44 PM 03/29/25 Cosigned by Nas Sage MD at 03/29/2025 7:59 PM CDT Associated attestation - Nas Sage MD - 03/29/2025 7:59 PM CDT I have seen and examined the patient on 03/29/25. I agree with the findings and plan of care as documented in the resident's/fellow's note. Except as in my note below. When I review the medicine list above in his incorrect. The patient is no longer on warfarin. The patient is not currently taking erythromycin. The patient is not taking both Entresto and losartan. He does remember that he is taking Entresto. He did not recall that he is on The patient has ishcemic cmp with class 3 symptoms of ARVIZU and metastatic melanoma on Rx with surveilance CT demonstrating new LV apical mural thrombus and splenic infarct. He has PAFib and has been treated apixaban 2.5 mg twice a day. He said he has been on this medicinefor about a year. He previously was on warfarin but did not like doing the fingerstick blood test. He said he has been on the current dose of apixaban and has not been on a higher dose. In [facility] I can find evidence that there is mentioned of the left ventricular mural thrombus in the past. The details of this is not known. The patient was not aware of any history of LV thrombus. He has no known history of stroke or embolization. He has class 3 heart failure with dyspnea with household activities. No orthopnea nocturnal dyspnea. No new chest pain. No arrhythmic symptoms he has paroxysmal AFib and a defibrillator. He said he got a new defibrillator battery 1 week ago today. He said he was off the anticoagulation for a couple days before that and also missed a couple days he was of anticoagulation because of the cost with the insurance issue. On exam no acute distress JVP not visible S1-S2 no S3 I did not hear any significant murmurs he hasa defibrillator in the left chest with some mild swelling over the pocket. No drainage. Lungs cleargood air movement no wheezing abdomen is soft nontender no hepatosplenomegaly extremities no clubbing cyanosis no peripheral edema is present. After labs and I reviewed personally troponin of 16. Hemoglobin normal. Assessment and plan the patient has left ventricular apical mural thrombus. We reviewed the literature about this and discuss with the patient. Management options include switching to warfarin for systemic anticoagulation. That is a guideline directed treatment for left ventricular mural thrombus with anticoagulation with warfarin. Off-label use of apixaban or other NOACs for left ventricular thrombus as an emerging literature with similar outcomes with resolution of the thrombus reported. We discussed admission to hospital anticoagulation with warfarin and heparin until warfarin therapeutic and adjusting his heart failure medications. As detailed in the fellow's note he has declined this and prefers instead to be treated with Eliquis. For atrial fibrillation the patient has undertreated. The guideline directed medical therapy dose for Eliquis for paroxysmal AFib we would be 5 mg twice a day. That has the dose recommended for left ventricular apical mural thrombus. It is not clear why the patient is on a lower dose of Eliquis. With his age and weight and creatinine level appropriate dose Eliquis for AFib we would be 5 mg twice a day. The patient has 2.5 mg tablet size. Because he has declined warfarin anticoagulation, We have recommended that he increase the dose of Eliquisto 5 mg b.i.d. starting tonight. We have asked him to contact his real estate job titles and treating physician tomorrow for follow-up and re-evaluation of the left ventricular apical mural thrombus. He will also benefit from further adjustment of his guideline directed medical therapy for heart failure. It will be important for the patient's medical record chart to be updated to the correct medications and new map follow up with his primary physician about the correct heart failure medications so they can be updated into [facility]. Attending Documentation I have seen and examined the patient on 03/29/25. I agree with the findings and plan of care as documented in the resident's/fellow's note. Supplementary Attestation Today, I am treating the patient for New finding of LV apical mural thombus and splenic infarct which is a severe exacerbation or progression of ischemic cardiomyopathy as described in the note. Reviewed records from the following unique sources (external institutions or providers from different services), including records from OSH in [facility] that mentions left ventricular mural thrombus Independently interpreted test 1.1 mg which was used to continue or change medication dosing--to increase Eliquis dose to 5 mg bid (from 2.5 mg bid) Discussed the risk/benefit of warfarin versus eliquis for LV thrombus and hospitalizatoin for CHF optimization (currently class 3) with the patient as described in the note. Nas Sage MD 03/29/2025 7:48 PM . documented in this encounter ED Notes * Sara Lim RN - 03/29/2025 4:02 PM CDT Bed: ED2-25 Expected date: Expected time: Means of arrival: Ambulance Comments: Sara Lim RN 03/29/25 1602 * Jeovanny Hooks RN - 03/29/2025 3:26 PM CDT Patient coming to the ED as directed by oncologist after having abnormal CT scan where thrombus is seen in his left ventricle as well as a splenic infarct. Pt reports shortness of breath. documented in this encounter Miscellaneous Notes * ED Pre-Arrival Note - Kimi Mcnair RN - 03/29/2025 3:19 PM CDT Pre-Arrival Note BIBEMS from [facility] [place] for thrombus in L ventricle. Pt states he has been compliant with his BT.Only endorsing sob and no CP. A&O4, VSS for ems. Kimi Mcnair RN documented in this encounter Plan of Treatment Not on file documented as of this encounter Procedures Procedure Name Priority Date/Time Associated Diagnosis Comments TROPONIN I HIGH-SENSITIVITY 2-HOUR Timed 03/29/2025 5:31 PM CDT TROPONIN I HIGH-SENSITIVITY SERIES (BASELINE, 2HR, 4HR, 6HR) STAT 03/29/2025 3:57 PM CDT EGFR STAT 03/29/2025 3:57 PM CDT DIFFERENTIAL AUTO STAT 03/29/2025 3:5 7 PM CDT CBC WITH AUTO DIFFERENTIAL STAT 03/29/2025 3:57 PM CDT COMPREHENSIVE METABOLIC PANEL STAT 03/29/2025 3:57 PM CDT documented in this encounter Results * Troponin I high-sensitivity 2-hour (03/29/2025 5:31 PM CDT) Trop I hs 16 <=35 ng/L Comment: Interpretive Data For further hscTnI resources including the diagnostic algorithm and an aid in interpretation, copy and paste this link: https://bjhlab.testcatalog.org/show/[email or web address] Current Interpretive Data last revised 2020. Trop I hs delta 2 ng/L [facility] Trop I hs interp Insignificant [facility] Blood 03/29/2025 5:31 PM CDT 03/29/2025 5:49 PM CDT Jett Balderrama MD LAB BLOOD ORDERABLES Fin al Result Performing Organization Address City/[facility] Co de Phone Number [facility] [place] [address] * eGFR (03/29/2025 3:57 PM CDT) eGFR 69 >=60 mL/min/1. 73 m2 Comment: Interpretive Data [...] interpretive data was last reviewed 2021. Blood 03/29/2025 3:57 PM CDT 03/29/2025 4:17 PM CDT Jett Balderrama MD LAB BLOOD ORDERABLES Fin al Result Performing Organization Address City/[facility]/ZIP Co de Phone Number [facility] Department [place] [address] * Differential, auto (03/29/2025 3:57 PM CDT) Neutrophil abs 5.46 1.50 - 6.50 K/cumm Imm gran abs 0.02 0.00 - 0.10 K/cumm [facility] Lymphocyte abs 1.40 0.80 - 3.30 K/cumm [facility] Monocyte abs 0.36 0.20 - 0.80 K/cumm [facility] Eosinophil abs 0.30 0.00 - 0.50 K/cumm [facility] Basophil abs 0.09 0.00 - 0.10 K/cumm [facility] Neutrophil pct 71.6 % [facility] Comment: Interpretive Data Percent cell count reference ranges are not reported, since discordance with absolute values may lead to misinterpretation of CBC data. Current Interpretive Data was last revised on 2017. Imm gran pct 0.3 % [facility] Comment: Interpretive Data Percent cell count reference ranges are not reported, since discordance with absolute values may lead to misinterpretation of CBC data. Current Interpretive Data was last revised on 2017. Lymphocyte pct 18.3 % [facility] Comment: Interpretive Data Percent cell count reference ranges are not reported, since discordance with absolute values may lead to misinterpretation of CBC data. Current Interpretive Data was last revised on 2017. Monocyte pct 4.7 % [facility] Comment: Interpretive Data Percent cell count reference ranges are not reported, since discordance with absolute values may lead to misinterpretation of CBC data. Current Interpretive Data was last revised on 2017. Eosinophil pct 3.9 % [facility] Comment: Interpretive Data Percent cell count reference ranges are not reported, since discordance with absolute values may lead to misinterpretation of CBC data. Current Interpretive Data was last revised on 2017. Basophil pct 1.2 % [facility] Comment: Interpretive Data Percent cell count reference ranges are not reported, since discordance with absolute values may lead to misinterpretation of CBC data. Current Interpretive Data was last revised on 2017. Blood 03/29/2025 3:57 PM CDT 03/29/2025 4:17 PM CDT us Jett Balderrama MD LAB BLOOD ORDERABLES Fin al Result [facility] Department [place] [address] * Troponin I high-sensitivity series (baseline, 2hr, 4hr, 6hr) (03/29/2025 3:57 PM CDT) [facility] Trop I hs 14 <=35 ng/L Comment: Interpretive Data For further [facility] resources including the diagnostic algorithm and an aid in interpretation, copy and paste this link: https://bjhlab.testcatalog.org/show/hsTrop-[email or web address] Current Interpretive Data last revised 2020. Blood 03/29/2025 3:57 PM CDT 03/29/2025 4:17 PM CDT Jett Balderrama MD LAB BLOOD ORDERABLES Fin al Result Performing Organization Address [facility] de Phone Number [facility] Department [place] [address] * (ABNORMAL) CBC with auto differential (03/29/2025 3:57 PM CDT) [facility] WBC 7.63 3.80 - 9.90 K/cumm Hgb 14.5 13.0 - 17.5 g/dL [facility] Hct 46.2 38.9 - 50.3 % [facility] Plt 303 150 - 400 K/cumm [facility] MPV 10.4 9.1 - 12.3 fL [facility] RBC 5.12 4.30 - 5.80 M/cumm [facility] MCV 90.2 81.3 - 96.4 fL [facility] MCH 28.3 27.1 - 33.3 pg [facility] MCHC 31.4(L) 32.3 - 35.7 g/dL [facility] RDW CV 13.0 11.1 - 14.9 % [facility] RDW SD 42.9 35.7 - 48.1 fL [facility] NRBC abs 0.00 0.00 - 0.01 K/cumm [facility] Blood 03/29/2025 3:57 PM CDT 03/29/2025 4:17 PM CDT Jett Balderrama MD LAB BLOOD ORDERABLES Fin al Result [facility] Department [place] [address] * (ABNORMAL) Comprehensive metabolic panel (03/29/2025 3:57 PM CDT) Sodium 143 135 - 145 mmol/L Potassium, pl 4.9 3.3 - 4.9 mmol/L [facility] Chloride 106 97 - 110 mmol/L [facility] CO2 26 22 - 32 mmol/L [facility] Anion gap 11 2 - 15 mmol/L [facility] BUN 15 6 - 25 mg/dL [facility] Creatinine 1.11 0.80 - 1.30 mg/dL [facility] Glucose 93 70 - 199 mg/dL [facility] Comment: Interpretive Data Fasting glucose >/= [...] interpretive data was last revised 2022. Calcium 9.9 8.5 - 10.3 mg/dL [facility] Bilirubin, total 1.5(H) 0.1 - 1.2 mg/dL [facility] Protein, pl 8.4 6.5 - 8.5 g/dL [facility] Albumin 4.4 3.5 - 5.0 g/dL [facility] Alk phos 43 40 - 130 Units/L [facility] ALT 12 7 - 55 Units/L [facility] AST 21 10 - 50 Units/L [facility] Blood 03/29/2025 3:57 PM CDT 03/29/2025 4:17 PM CDT Jett Balderrama MD LAB BLOOD ORDERABLES Fin al Result [facility] Department [place] [address] documented in this encounter Visit Diagnoses Not on filedocumented in this encounter Orders EKG Orders Without Results Count Last Ordered D ate First Ordered Date ECG 12-LEAD 1 03/29/2025 Nursing Count Last Ordered Date First Orde red Date CAPNOGRAPHY MONITORING 1 03/29/2025 CONTINUOUS PULSE OXIMETRY 1 03/29/2025 Consult Count Last Ordered Date First Orde red Date IP CONSULT TO CARDIOLOGY 1 03/29/2025 IV Count Last Ordered Date First Orde red Date SALINE LOCK IV 1 03/29/2025 documented in this encounter Care Teams Education Finance Processor Relationship Specialty Start Date End Date Ambrose Reyes MD Referring Physician Neurosurgery 07/23/18 Marcell Mckay MD [address] [place] [address] Consulting Physician Plastic Surgery 03/11/19 Ines Carpenter MD [address] [facility] [address] [place] [address] Consulting Physician Internal Medicine 06/04/22 5 [place] [address] [facility] [address] [address] Customer Field Representative Cardiology 03/29/25 [place] [id number] [facility] [address] [place] [address] Customer Field [facility] 03/29/25 documented as of this encounter
[2025-03-31] VITALS (16 sets, daily range): BP systolic 112–136; BP diastolic 69–100; PULSE 93–109; RESP 15–26; TEMP 37.1; O2SAT 96–99
--- NOTE | 2025-03-31 | ECHO_ITS ---
Patient Info Name: Karin Jackson Age: 74 years : 1950 Gender: Male Ht: 67 in Wt: 157 lbs BSA: 1.84 m2 HR: 97 bpm BP: 131 / 87 mmHg Heart Rhythm: Sinus Rhythm Technical Quality: Fair Exam Date: 03/31/2025 12:16 PM Patient Status: E Admit Date: 03/31/2025 Exam Type: CA echo dop color flow w con Complete two-dimensional, color flow and Doppler transthoracic echocardiogram is performed with contrast to opacify the left ventricle and to improve the deliniation of the left ventricle endocardial borders. Staff Referring Physician: Marcell Jones Crematorium Operator: Parris Roy Attending Provider: Marcell Jones Contrast/Agitated Saline Contrast/Ag. Saline: Definity Amount: 2.00 ml Administered By: Parris Roy Existing IV Access: Yes IV Access Condition: patent with no signs of infiltration Summary 1. Definity contrast administered improved wall motion interpretation. 2. Left ventricular chamber dimension is moderately enlarged. 3. Moderate size apical thrombus noted. 4. Left ventricular systolic function is severely globally reduced, estimated at 20-25. 5. The left ventricular diastolic function is abnormal. 6. E/e' 25 is significantly elevated. 7. Linear artifact in right ventricle suggestive of catheter(s), pacemaker lead(s), or ICD lead(s). 8. Left atrial chamber dimension is moderately enlarged. 9. Right atrial chamber dimension is mildly enlarged. 10. Linear artifact in the right atrium suggestive of catheter(s), pacemaker lead(s), or ICD lead(s). 11. There is mild aortic valve sclerosis. 12. The mitral valve has a mildly calcified annulus. Left Ventricle Moderate size apical thrombus noted. Left ventricular chamber dimension is moderately enlarged. Left ventricular systolic function is severely globally reduced, estimated at 20-25. The left ventricular diastolic function is abnormal. Definity contrast administered improved wall motion interpretation. E/e' 25 is significantly elevated. Right Ventricle Right ventricular chamber dimension is not well visualized. Linear artifact in right ventricle suggestive of catheter(s), pacemaker lead(s), or ICD lead(s). Left Atria Left atrial chamber dimension is moderately enlarged. Right Atria Right atrial chamber dimension is mildly enlarged. Linear artifact in the right atrium suggestive of catheter(s), pacemaker lead(s), or ICD lead(s). Aortic Valve The aortic valve is trileaflet. There is mild aortic valve sclerosis. There is no aortic valve stenosis. There is no aortic valve regurgitation. Pulmonic Valve There is no pulmonic regurgitation. Mitral Valve The mitral valve has a mildly calcified annulus. There is no mitral valve stenosis. There is no mitral valve regurgitation. Tricuspid Valve There is no tricuspid valve regurgitation. Pericardium/Pleural There is no pericardial effusion. Inferior Vena Cava Normal inferior vena cava with >50% collapse upon inspiration consistent with normal right atrial pressure, 5 mmHg. Aorta The aortic root size at the sinus of Valsalva is normal. Left Ventricular Outflow Tract Name Value Normal LVOT 2D LVOT Diameter 2.0 cm LVOT Doppler LVOT Peak Velocity 45 cm/s LVOT Peak Gradient 1 mmHg LVOT Mean Gradient 0 mmHg LVOT VTI 7 cm LVOT VTI/AV VTI Ratio 0.4 LVOT Stroke Volume 22 ml LVOT CO 2.2 l/min LVOT CI 1.2 l/min/m2 Pulmonic Valve Name Value Normal RVOT Doppler RVOT Peak Velocity 55 cm/s RVOT Peak Gradient 1 mmHg PV Doppler PV Peak Velocity 67 cm/s PV Peak Gradient 2 mmHg Mitral Valve Name Value Normal MV Diastolic Function MV E Peak Velocity 87 cm/s MV A Peak Velocity 57 cm/s MV E/A 1.5 MV Decel Time (PW) 128 ms MV Annular TDI MV E/e' (Septal) 26.9 MV E/e' (Lateral) 24.2 MV E/e' (Average) 25.6 Tricuspid Valve Name Value Normal Estimated PAP/RSVP RA Pressure 5 mmHg <=5 TV Annular TDI TV Lateral Kami s' Velocity 5.6 cm/s >=9.5 Aortic Valve Name Value Normal AV Doppler AV Peak Velocity 102 cm/s AV Peak Gradient 4 mmHg AV Mean Gradient 2 mmHg AV VTI 16 cm AV Area (Cont Eq VTI) 1.4 cm2 >=3.0 AV Area (Cont Eq Yo) 1.4 cm2 AV DI (Yo) 0.44 AV Regurgitation 2D LVOT Area 3.2 cm2 Ventricles Name Value Normal LV Dimensions 2D/MM IVS Diastolic Thickness (2D) 0.8 cm 0.6-1.0 LVID Diastole (2D) 5.6 cm 4.2-5.8 LVIW Diastolic Thickness (2D) 0.8 cm 0.6-1.0 LVID Systole (2D) 5.1 cm 2.5-4.0 LVOT Diameter 2.0 cm LV Mass (2D Cubed) 175.11 g 88.00-224.00 LV Mass Index (2D Cubed) 95 g/m2 49-115 Relative Wall Thickness (2D) 0.30 <=0.42 LV Fractional Shortening/Ejection Fraction 2D/MM LV Fractional Shortening (2D) 9 % 25-43 LV EF (2D Teichholz) 20 % LV Diastolic Volume (4C MOD) 109 ml LV EF (4C MOD) 29 % LV Diastolic Volume (2C MOD) 206 ml LV EF (2C MOD) 30 % LV Diastolic Volume (BP MOD) 150 ml 62-150 LV Diastolic Volume Index (BP MOD) 81 ml/m2 34-74 LV Systolic Volume (BP MOD) 106 ml 21-61 LV Systolic Volume Index (BP MOD) 57 ml/m2 11-31 LV EF (BP MOD) 29 % 52-72 LV Diastolic Length (4C) 9.3 cm LV Systolic Length (4C) 7.8 cm LV Stroke Volume (4C MOD) 32 ml Atria Name Value Normal LA Dimensions LA Volume (4C A-L) 70 ml LA Volume (BP A-L) 73 ml RA Dimensions RA Area (4C) 17.3 cm2 <=18.0 Report Signatures
--- NOTE | ~2025-03-31 | CT_ITS ---
EXAMINATION: CTA chest DATE: 03/31/2025 12:11 CDT INDICATION: Known left ventricular thrombus TECHNIQUE: Computed tomographic angiography (CTA) of the chest was performed with 100 mL Omnipaque-350 intravenous contrast. The dose-length product was 324.32 mGy-cm. Maximum intensity projection 3D-reconstructions of the aorta and other arteries were constructed by the technologist on a separate workstation. COMPARISON: CT dated 12/25/2024. FINDINGS: Mild cardiomegaly. There is hypodense mass in the left ventricle, compatible with known thrombus. Trace pleural effusions. There is mediastinal lymphadenopathy, likely reactive. There is hiatal hernia. Upper abdomen is unremarkable. There is severe emphysema. Calcified granuloma right lower lobe. No endobronchial lesions. No pneumothorax. No evidence for aortic aneurysm or dissection. Pacemaker leads in expected position. There are additional scattered small calcified granulomas in both lungs. IMPRESSION: 1. Mild cardiomegaly with hypodense mass left ventricle compatible with known thrombus. 2: Trace pleural effusions. 3: Mediastinal lymphadenopathy, likely reactive. 4: Severe emphysema. Reviewed, dictated and finalized at location O. IMPRESSION: 1. Mild cardiomegaly with hypodense mass left ventricle compatible with known t hrombus. 2: Trace pleural effusions. 3: Mediastinal lymphadenopathy, likely reactive. 4: Severe emphysema.
--- NOTE | 2025-03-31 10:43 | ED_ITS ---
HPI - Recheck/Abnormal Lab/Rx General Chief Complaint: Shortness of Breath/Dyspnea Stated Complaint: left ventricular thrombus Time Seen by Provider: 03/31/25 10:33 History of Present Illness HPI narrative: This is a 74-year-old male with history of severe cardiomyopathy now status post AICD/pacemaker on Eliquis who presents to the for abnormal CT findings. Patient states that he had a CT scan done after his AICD placement and was called today about the results. He states that he was found to have a clot in his left ventricle. He states that he does have severe shortness of breath with exertion but denies any symptoms at rest. Denies fevers, chest pain, nausea, vomiting. Related Data Home Medications ?Medication ?Instructions ?Recorded ?Confirmed ?Last Taken ?Type dofetilide 250 mcg capsule 250 mcg PO Q12H 12/04/24 Unknown History magnesium oxide 400 mg (241.3 mg 400 mg PO QAM 5 03/31/25 Unknown History magnesium) tablet apixaban 2.5 mg tablet (Eliquis) 2.5 mg PO Q12H 03/31/25 Unknown History rosuvastatin 10 mg tablet 10 mg PO DAILY 12/26/2403/06 Unknown History metoprolol succinate 25 mg 25 mg PO DAILY 01/31/25 Unknown History tablet,extended release 24 hr Allergies Allergy/AdvReac Type Severity Reaction Status Date / Time codeine AdvReac Mild HALLUCINATI Verified 03/31/25 10:57 [facility] Past Medical History Medical History (Updated 03/31/25 @ 19:03 by Marcell Jones MD) Left ventricular apical thrombus moderate left ventricular apical thrombus on echo 03/31/2025. Cough Bronchiectasis COPD exacerbation Acute kidney injury superimposed on CKD ICD (implantable cardioverter-defibrillator) in place Atrial fibrillation with rapid ventricular response Benign paroxysmal positional vertigo due to bilateral vestibular disorder Acute bronchitis GERD (gastroesophageal reflux disease) Chronic kidney disease (CKD) stage G3a/A2, moderately decreased glomerular filtration rate (GFR) between 45-59 mL/min/1.73 square meter and albuminuria creatinine ratio between 30-299 mg/g (~12/13/23) BUN 28, creatinine 1.40 with GFR 49 on 12/13/2023. BUN 26, creatinine 1.3 with GFR 54 on 04/27/2024. BPH without obstruction/lower urinary tract symptoms PSA 2.1 on 12/13/2023. BPPV (benign paroxysmal positional vertigo) Encounter for prostate cancer screening PSA 2.1 on 12/13/2023. History of malignant melanoma right forearm with wide excision 2020 Chronic atrial fibrillation BMI 24.0-24.9, adult Ischemic cardiomyopathy with implantable cardioverter-defibrillator (ICD) Recent ejection fraction of 15%. Echo 02/21/2024 with severe global left ventricular hypokinesis with ejection fraction of 25% with moderate mitral valve regurgitation. Echo with ejection fraction 25% and grade 2 diastolic dysfunction on 04/30/2024. Echo with ejection fraction 20% 2024. Mixed hyperlipidemia Cholesterol 243, triglycerides 123, HDL 52, LDL 139 on 12/13/2023. Cholesterol 226, triglycerides 116, HDL 42, LDL 145 on 04/27/2024. Chronic anxiety Seasonal allergic rhinitis Chronic low back pain with right-sided sciatica x-ray of the lumbar spine on 09/18/2023 reveals mild degenerative changes of the lumbar spine COVID-19 Iron deficiency anemia Iron 116 with 32% saturation and ferritin 71.5 with hemoglobin 15.2 on 12/13/2023. Elevated LFTs Acute kidney injury Elevated troponin CAD (coronary artery disease) acute MD with stents. Atrial fibrillation with RVR Acute on chronic heart failure with reduced ejection fraction and diastolic dysfunction Echo on 03/31/2025 with ejection fraction 20-25% with diastolic dysfunction and moderate left ventricular apical thrombus. Current use of press tender long goods anticoagulation Pacemaker Dizziness Transaminitis Afib CHF (congestive heart failure) HTN (hypertension) HLD (hyperlipidemia) COPD (chronic obstructive pulmonary disease) Severe emphysema on CT angiogram of the chest on 03/31/2025. Reactive lymphadenopathy. apical thrombus left ventricle. Heart disease Skin cancer Family History Family History Father Heart disease Other Cerebrovascular accident Mother Kidney failure Heart disease Acute myocardial infarction Social History Social History Social History: Patient lives on his own. He denies having any children or pets. Jorge his brother is his surrogate. and he wishes to be a full code. Smoking packs per day: 0.5 Smoking cigarettes per day: 10.0 Years smoked: 18 Smoking pack-years: 9.00 Smoking status: Never smoker Tobacco type: cigarettes Second hand tobacco smoke exposure: No Smoking end date: 07/08/14 Alcohol intake: current Drinks per week: 1 Alcohol use details: beer Substance use: never Substance use type: does not use Do You Feel Safe in your Home?: Yes Lack of Transportation: No Lack of Food: Never True Current Housing: I Have Housing Concerned About Future Housing: No Difficulty Paying Gas/Electric Bills: No Difficulty Paying for Meds: YES Currently Unemployed: No Education: High School Diploma/GED Difficulty w/ Childcare or Family Care: No Living arrangements: alone Gender identity (if verbalized by the patient): Male Sexual Orientation (if Verbalized by the Patient): Straight or Heterosexual Spiritual care concerns: No Agree to blood products: Yes Course Vital Signs Vital signs: Vital Signs Temperature 98.7 F 03/31/25 10:47 Pulse Rate 96 03/31/25 10:47 Respiratory Rate 18 03/31/25 10:47 Blood Pressure 131/87 03/31/25 10:47 Pulse Oximetry 97 03/31/25 10:47 Oxygen Delivery Room Air 03/31/25 10:47 Temperature 98.7 F 03/31/25 10:47 Pulse Rate 101 H 03/31/25 16:57 Respiratory Rate 19 03/31/25 16:57 Blood Pressure 136/100 H 03/31/25 16:57 Pulse Oximetry 98 03/31/25 16:57 Oxygen Delivery Room Air 03/31/25 10:53 MDM - Recheck/Abnormal Lab/Rx MDM Narrative Medical decision making narrative: 74-year-old male who presented to the ED for abnormal CT findings of a LV thrombus. Upon initial evaluation, patient was in no acute distress, afebrile, hemodynamically stable. Patient was reportedly rather dyspneic on presentation to triage and had to take several minutes to catch his breath to explain his reason for presentation. He had a mild anemia at 12.0. CMP was without significant abnormalities. CTA chest was obtained and did reveal the LV thrombus as previously described. Stat echo was obtained which revealed moderately large left ventricular chamber and a moderate-sized apical thrombus. I did discuss the case with cardiology here who agreed with the heparin bolus and drip and recommended the patient be transferred for continuity of care and in the event he may need intervention. I did reach out to PACU where his bushel girl Dr. Zavala is and the PA for Dr. Lopez, hospitalist, go back to me will accept the patient as a [facility] admit [facility]. Patient transferred in a stable condition. Differential Diagnosis Differential diagnosis: Likely other (LV thrombus, PE, ACS) Medical Records Attestation: I reviewed the patient's medical records. Lab Data Attestation: I reviewed the patient's lab results. 03/31/25 10:56 03/31/25 10:56 Labs: Lab Results 03/31/25 03/31/25 03/31/25 Range/Units 10:56 13:44 18:53 WBC 6.9 (4.5-10.0) K/mm3 RBC 4.23 L (4.6-6.20) M/mm3 Hgb 12.0 L D (14.0-18.0) g/dL Hct 38.8 L (42.0-52.0) % MCV 91.7 (80-100) fl MCH 28.4 (26-34) pg MCHC 30.9 L (32-36) g/dl RDW 13.3 (11.5-14.5) % Plt Count 251 (150-375) k/mm3 MPV 9.4 (7.4-10.4) fl Immature Gran % (Auto) 0.1 (0-0.5) % Neut % (Auto) 72.3 (45.5-73.1) % Lymph % (Auto) 16.6 L (18.3-44.2) % [place] % (Auto) 6.9 (2.6-8.5) % Eos % (Auto) 3.1 (0-4.4) % Baso % (Auto) 1.0 (0.2-1.2) % Lymph # (Auto) 1.14 (0.9-3.2) K/mm3 [place] # (Auto) 0.5 (0.1-0.6) K/mm3 Eos # (Auto) 0.2 (0-0.3) K/mm3 Baso # (Auto) 0.1 (0.0-0.1) K/mm3 Abs Immat Gran (auto) 0.01 (0.00-0.031) K/mm3 Absolute Neuts (auto) 5.0 (1.3-6.7) K/mm3 Absolute Nucleated RBC 0.000 (0.0-0.012) K/mm3 Nucleated RBC % 0.0 (0.0-0.2) % PT 16.3 H (11.1-14.7) Seconds INR 1.3 APTT 35.8 Pending (22.3-36.8) Seconds Sodium 140 (137-145) mmol/L Potassium 4.2 (3.4-5.0) mmol/L Chloride 106 (98-107) mmol/L Carbon Dioxide 27 (22-30) mmol/L Anion Gap 7 (4-12) mmol/L BUN 15 D (9-20) mg/dL Creatinine 1.13 (0.7-1.3) mg/dL Estim Creat Clear Calc 48 ml/min Estimated GFR > 60 (59 - ) Glucose 116 H (65-110) mg/dL Calcium 9.2 (8.4-10.2) mg/dL Total Bilirubin 1.6 H (0.2-1.3) mg/dL AST 25 (17-59) U/L ALT 12 (6-50) U/L Alkaline Phosphatase 37 L (38-126) U/L Troponin I 0.014 0.015 (0.000-0.034) ng/mL Total Protein 7.0 (6.3-8.2) g/dL Albumin 4.0 (3.5-5.1) g/dL Imaging Data Radiologist's impression: Impressions Chest CTA 03/31/25 12:10 IMPRESSION: 1. Mild cardiomegaly with hypodense mass left ventricle compatible with known thrombus. 2: Trace pleural effusions. 3: Mediastinal lymphadenopathy, likely reactive. 4: Severe emphysema. ECG Data EKG #1: Attestation: I personally reviewed and interpreted this ECG as follows: ECG completion date: 03/31/25 ECG completion time: 13:48 Interpretation: Sinus rhythm rate of 98, incomplete left bundle-branch block, poor R-wave progression, no acute ST or T-wave changes Discharge Plan Discharge Clinical Impression: Ischemic cardiomyopathy with implantable cardioverter-defibrillator (ICD), Left ventricular apical thrombus Patient Disposition: Acute Care Hospital Condition: Serious Patient Language: Kazakh Prescriptions: No Action albuterol sulfate 90 mcg/actuation HFA aerosol inhaler 2 puff INHALATION QID PRN (Reason: shortness of breath or wheezing) Qty: 8.5 11RF magnesium oxide 400 mg (241.3 mg magnesium) tablet 400 mg PO QAM dofetilide 250 mcg capsule 250 mcg PO Q12H rosuvastatin 10 mg tablet 10 mg PO DAILY Eliquis 2.5 mg tablet 2.5 mg PO Q12H sacubitril-valsartan 24-26 mg tablet 0.5 tablet PO BID Qty: 30 0RF Rx Instructions: Patient need to cut the Entresto tablet into half and take it as twice a day. restarted by bushel girl 01/18/2025. metoprolol succinate 25 mg tablet extended release 24 hr 25 mg PO DAILY Patient Comments: started by bushel girl 01/18/2025. clonazepam 0.5 mg tablet 0.5 mg PO QHS PRN (Reason: anxiety) Qty: 30 5RF Rx Instructions: administer 30 minutes before bedtime Follow-up/Referrals: Nj Espino MD [Primary Care Provider, Family Practice]
--- OUTSIDE RECORDS SUMMARY | 2025-03-31 10:49 | XMS_ITS | Encounter Summary ---
Author Organization [facility] Address [address] [place] [address] Phone Care Team Providers Care Cook Specialty Name Role Phone Ambrose Reyes MD Unavailable Marcell Mckay MD Unavailable Jose Ma MD Unavailable SahJuwan meredith MD Unavailable Encounter Details Date Type Department Care Team (Late st Contact Info) Description 03/31/2025 Telephone [facility] Medicine Cardiology [address] [facility] [address] [place] [address] [place] [address] Nas Sage MD [address] [facility] [address] [place], [place] [id number] Social History Tobacco Use Types Packs/Day Years Used Date Smoking Tobacco: Former Cigarettes 0.5 31.7 S tarted: 1994 Smokeless Tobacco: Never Alcohol Use Standard Drinks/Week [...] on file 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 The patient has declined admission for anticoagulation therapy. We asked him to increase the apixaban from 2.5 mg twice a day to 5 mg twice a day and to follow up with his blocker and polisher gold wheel for further evaluationand management and re-evaluation of the left ventricular thrombus. documented in this encounter Plan of Treatment Not on file documented as of this encounter Visit Diagnoses Not on filedocumented in this encounter Care Teams Cook Specialty Relationship Specialty Start Date End Date Ambrose Reyes MD Referring Physician Neurosurgery 07/23/18 Pet, Marcell Hardy MD [address] [place] [address] Consulting Physician Plastic Surgery 03/11/19 [place] [id number] [address] [address] Digital Publishing Specialist Cardiology 03/29/25 [place] [id number] [address] [address] Digital Publishing Specialist Cardiology 03/29/25 documented as of this encounter
--- OUTSIDE RECORDS SUMMARY | 2025-03-31 10:50 | XMS_ITS | Clinical Summary ---
Author Organization [facility] Address [address] [place] [address] Care Team Providers Care Business Performance Specialist Name Role Phone Madi Garcia MD Primary Care Provider + [phone] Source Comments [facility],non-owned Affiliates and Associated Physician Practices is amultiple site organization consisting of ambulatory clinics and hospital sitesin [place], [place], [place] and [place]. This disclosure is being madepursuant to the Care Everywhere program and may not contain all information available regarding this patient. 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 Gender Identity Not on file Sexual Orientation Not on file Last Filed Vital Signs Vital Sign Reading Time Taken Comments Blood Pressure 114/80 07/16/2013 2:27 PM LOSS PREVENTION SUPERVISOR Pulse 94 07/16/2013 2:27 PM LOSS PREVENTION SUPERVISOR Temperature - - Respiratory Rate - - Oxygen Saturation 98% 07/16/2013 2:27 PM LOSS PREVENTION SUPERVISOR Inhaled Oxygen Concentration - - Weight 66.2 kg (146 lb) 07/16/2013 2:27 PM LOSS PREVENTION SUPERVISOR Height - - Body Mass Index - [...] season) 2024 DEPRESSION SCREENING 08/05/2024 INFLUENZA VACCINE (#1) 2025 HEPATITIS B VACCINE Aged Out No [...] complete this topic Insurance MEDICARE Care Teams Business Performance Specialist Relationship Specialty Start Date End Date Madi Garcia MD [address] [facility] [address] [place] [address] PCP - General Internal Medicine 07/16/13
--- OUTSIDE RECORDS SUMMARY | 2025-03-31 10:50 | XMS_ITS ---
Author Organization [facility] Address [address] [place] [address] Care Team Providers Care Scoop Driver Name Role Phone Ambrose Reyes MD Unavailable Marcell Mckay MD Unavailable [phone] Jose Ma MD Unavailable [phone] SahetaJuwan MD Unavailable [phone] Active Problems Problem Noted Date Diagnosed Date [...] (02/25/2019): Added automatically from request for surgery [id number] Melanoma of forearm, right 01/15/2019 Encounter for preprocedural cardiovascular exami [facility] 2018 Neck pain 07/21/2018 Atrial fibrillation 07/21/2018 Cardiomyopathy 07/21/2018 Degenerative disc disease, cervical 07/21/2018 Cervical stenosis of spinal canal 07/21/2018 Anxiety disorder, unspecified 04/18/2016 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
--- OUTSIDE RECORDS SUMMARY | 2025-03-31 10:50 | XMS_ITS | Clinical Summary ---
Author Organization [facility] Address [address] [place] [address] Care Team Providers Care Older Worker Specialist Name Role Phone Ambrose Reyes MD Unavailable [phone] Marcell Mckay MD Unavailable KalJose carmona MD Unavailable [phone] SahetaJuwan MD Unavailable Allergies Active Allergy Reactions Criticality Noted Date Comments Codeine Delusions,Other (See comments),Hallucinations Medium 07/16/2013 'Weird dreams' Morphine Rash Medium 01/12/2019 Medications [...] 2 (two) times a day 4 Active cephalexin (KEFLEX) 500 mg capsule TAKE ONE CAPSULE BY MOUTH EVERY 8 HOURS FOR INFECTION 5 Active dofetilide (TIKOSYN) 250 mcg capsule 5 Active metoprolol XL (TOPROL-XL) 25 mg extended release tablet TAKE ONE TABLET BY MOUTH EVERY MORNING FOR BLOOD PRESSURE 5 Active oxyCODONE-aceta minophen (PERCOCET) 5-325 mg per tablet TAKE ONE TABLET BY MOUTH EVERY TWELVE HOURS NEEDED FOR PAIN 5 Active rosuvastatin (CRESTOR) 10 mg tablet Take 1 tablet (10 mg total) by mouth daily 5 Active Active Problems Problem Noted Date Diagnosed [...] (02/25/2019): Added automatically from request for surgery [id number] Melanoma of forearm, right 01/15/2019 Encounter for preprocedural cardiovascular exami nation 2018 Neck pain 07/21/2018 Atrial fibrillation 07/21/2018 Cardiomyopathy 07/21/2018 Degenerative disc disease, cervical 07/21/2018 Cervical stenosis of spinal canal 07/21/2018 Anxiety disorder, unspecified 04/18/2016 assisted (current) use of anticoagulants 2015 Cardiomyopathy 05/09/2015 Peripheral vascular disease, unspecified 015 Peripheral vascular disease, unspecified 015 Unspecified atrial fibrillation 06/28/2014 Unspecified atrial flutter 06/28/2014 Acute stress reaction 06/07/2014 Acute stress reaction 06/07/2014 Coronary atherosclerosis 07/24/2013 CKD (chronic kidney disease) 07/17/2013 COPD (chronic obstructive pulmonary disease) Coronary atherosclerosis of [place] coronary francesca ry 07/17/2013 Encounter for other specified cardiac device in situ 07/17/2013 Overview (02/25/2019): Overview: LV (left ventricular) mural thrombus 07/17/2013 CHF (congestive heart failure) 07/16/2013 Ischemic cardiomyopathy 07/16/2013 Benign essential hypertension 08/05/1961 Encounters Date Type Department Care Team Description 03/31/2025 Telephone [facility] Medicine Cardiology [address] [facility] [address] [facility] 8th [place] [address] [place] [id number] Nas Sage MD 03/29/2025 4:02 PM CDT - 03/29/2025 7:02 PM CDT Emergency [facility] Emergency Department [address] [place] [id number] Jett Balderrama MD Discharge Disposition: Left Against Medical Advice 03/29/2025 2:40 PM CDT Office Visit [facility] Medicine Oncology [address] [facility] Floor [address] [place] [address] Brian Min MD 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); Melanoma of forearm, right (HCC) 03/29/2025 1:45 PM CDT Lab [facility] Medicine Oncology Lab [address] [facility] Floor [address] [place] [address] 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); Melanoma of forearm, right (HCC) 03/29/2025 1:00 PM CDT Clinical Support [facility] - Lab Collection [address] [facility] Floor [address] [place] [address] 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); Melanoma of forearm, right (HCC) 03/29/2025 12:14 PM CDT - 03/29/2025 11:59 PM CDT Hospital Encounter [facility] - [place] [address] [facility] Floor [address] [place] [address] 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); Melanoma of forearm, right (HCC) Discharge Disposition: Discharge to home or self care 03/24/2025 10:56 AM CDT - 03/24/2025 11:59 PM CDT Hospital Encounter [facility] Radiology [address] [place] [address] 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) Discharge Disposition: Discharge to home or self care 03/17/2025 Telephone [facility] Medicine Cardiology [address] [facility] [address] [facility] 8th [place] [address] [place] [address] Marlen Tomas 03/17/2025 Orders Only [facility] Medicine Cardiology [address] [facility] [address] [facility] [address]th [place] [address] [place] [address] Yvrose Espinal, RAMYA Ischemic cardiomyopathy (Primary Dx) from Last 3 Months Immunizations Immunization Administration [...] History Medical History Date Comments Hypertension Hyperlipidemia IN (myocardial infarction) (HCC) Heart disease Heart attack [...] 31.7 S tarted: 1994 Smokeless Tobacco: Never Tobacco Cessation:Counseling Given: Yes [...] on file 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 Gender Identity Not on file Sexual [...] Mass Index 23.87 03/29/2025 3:28 PM CDT Plan of Treatment Health Maintenance [...] 08/08/2021, 11/25/2020, Additional history exists Influenza Vaccine (#1) 2025 , 04/22/2023, 05/09/2022, Additional history exists Abdominal Aortic Aneurysm (A AA) Screen Completed 03/29/2025, 11/02/2024, 05/18/2024, Additional history exists Medical Devices Implanted Type Area Optical Mechanic Apprentice Device Identifier Shelf Expiration Date Model / Serial / Lot [employer] Icd E162 ICD Left: Chest [employer] E162 / [id number] / [employer] Ra Lead 4136 Lead Heart [employer] C.R.M. 4136 / [id number] / [employer] Rv Lead 0292 Lead Heart [employer] C.R.M. 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) Melanoma of forearm, right (HCC) CBC WITH AUTO DIFFERENTIAL Routine 03/29/2025 1:18 PM CDT 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) Melanoma of forearm, right (HCC) EGFR Routine 03/29/2025 1:18 PM CDT 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) Melanoma of forearm, right (HCC) COMPREHENSIVE METABOLIC PANEL Routine 03/29/2025 1:18 PM CDT 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) Melanoma of forearm, right (HCC) LACTATE DEHYDROGENASE Routine 03/29/2025 1:18 PM CDT 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) Melanoma of forearm, right (HCC) THYROID FUNCTION CASCADE Routine 03/29/2025 1:18 PM CDT 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 Trop I hs delta 2 ng/L [facility] Trop I hs interp Insignificant [facility] Blood 03/29/2025 5:31 PM CDT 03/29/2025 5:49 PM CDT Jett Balderrama MD LAB BLOOD ORDERABLES Fin al Result Performing Organization Address [facility] de Phone Number [facility] [place] [address] * Troponin I high-sensitivity series (baseline, 2hr, 4hr, 6hr) (03/29/2025 3:57 PM CDT) Pathologist [facility] Trop I hs 14 <=35 ng/L Comment: Interpretive Data For further hscTnI resources including the diagnostic algorithm and an aid in interpretation, copy and paste this link: [email or web address]/show/[email or web address] Current Interpretive Data last revised 2020. Blood 03/29/2025 3:57 PM CDT 03/29/2025 4:17 PM CDT Jett Balderrama MD LAB BLOOD ORDERABLES Fin al Result Performing Organization Address [facility] de Phone Number [facility] [place] [address] * eGFR (03/29/2025 3:57 PM CDT) eGFR [...] of Race in Diagnosing Kidney Disease, JASN 202). The CKD-EPI equation should not be used for patients with unstable renal function and has not been validated in children and those over 70. Current interpretive data was last reviewed 2021. Blood 03/29/2025 3:57 PM CDT 03/29/2025 4:17 PM CDT us Jett Balderrama MD LAB BLOOD ORDERABLES Fin al Result [facility] Department [place] [address] * Differential, auto (03/29/2025 3:57 PM CDT) Neutrophil abs 5.46 1.50 - 6.50 K/cumm Imm gran abs 0.02 0.00 - 0.10 K/cumm [facility] Lymphocyte abs 1.40 0.80 - 3.30 K/cumm [facility] Monocyte abs 0.36 0.20 - 0.80 K/cumm [facility] Eosinophil abs 0.30 0.00 - 0.50 K/cumm [facility] Basophil abs 0.09 0.00 - 0.10 K/cumm [facility] Neutrophil pct 71.6 % [facility] Comment: Interpretive Data Percent cell count reference ranges are not reported, since discordance with absolute values may lead to misinterpretation of CBC data. Current Interpretive Data was last revised on 2017. Imm gran pct 0.3 % [facility] Comment: Interpretive Data Percent cell count reference ranges are not reported, since discordance with absolute values may lead to misinterpretation of CBC data. Current Interpretive Data was last revised on 2017. Lymphocyte pct 18.3 % [facility] Comment: Interpretive Data Percent cell count reference ranges are not reported, since discordance with absolute values may lead to misinterpretation of CBC data. Current Interpretive Data was last revised on 2017. Monocyte pct 4.7 % [facility] Comment: Interpretive Data Percent cell count reference ranges are not reported, since discordance with absolute values may lead to misinterpretation of CBC data. Current Interpretive Data was last revised on 2017. Eosinophil pct 3.9 % [facility] Comment: Interpretive Data Percent cell count reference ranges are not reported, since discordance with absolute values may lead to misinterpretation of CBC data. Current Interpretive Data was last revised on 2017. Basophil pct 1.2 % [facility] Comment: Interpretive Data Percent cell count reference ranges are not reported, since discordance with absolute values may lead to misinterpretation of CBC data. Current Interpretive Data was last revised on 2017. Blood 03/29/2025 3:57 PM CDT 03/29/2025 4:17 PM CDT us Jett Balderrama MD LAB BLOOD ORDERABLES Fin al Result [facility] Department [place] [address] * (ABNORMAL) CBC with auto differential (03/29/2025 3:57 PM CDT) WBC 7.63 3.80 - 9.90 K/cumm Hgb 14.5 13.0 - 17.5 g/dL [facility] Hct 46.2 38.9 - 50.3 % [facility] Plt 303 150 - 400 K/cumm [facility] MPV 10.4 9.1 - 12.3 fL [facility] RBC 5.12 4.30 - 5.80 M/cumm [facility] MCV 90.2 81.3 - 96.4 fL [facility] MCH 28.3 27.1 - 33.3 pg [facility] MCHC 31.4(L) 32.3 - 35.7 g/dL [facility] RDW CV 13.0 11.1 - 14.9 % [facility] RDW SD 42.9 35.7 - 48.1 fL [facility] NRBC abs 0.00 0.00 - 0.01 K/cumm [facility] Blood 03/29/2025 3:57 PM CDT 03/29/2025 4:17 PM CDT Jett Balderrama MD LAB BLOOD ORDERABLES Fin al Result [facility] Department [place] [address] * (ABNORMAL) Comprehensive metabolic panel (03/29/2025 3:57 PM CDT) Sodium 143 135 - 145 mmol/L Potassium, pl 4.9 3.3 - 4.9 mmol/L [facility] Chloride 106 97 - 110 mmol/L [facility] CO2 26 22 - 32 mmol/L [facility] Anion gap 11 2 - 15 mmol/L [facility] BUN 15 6 - 25 mg/dL [facility] Creatinine 1.11 0.80 - 1.30 mg/dL [facility] Glucose 93 70 - 199 mg/dL [facility] Comment: Interpretive Data Fasting glucose >/= [...] 2022. Calcium 9.9 8.5 - 10.3 mg/dL [facility] Bilirubin, total 1.5(H) 0.1 - 1.2 mg/dL [facility] Protein, pl 8.4 6.5 - 8.5 g/dL [facility] Albumin 4.4 3.5 - 5.0 g/dL [facility] Alk phos 43 40 - 130 Units/L [facility] ALT 12 7 - 55 Units/L [facility] AST 21 10 - 50 Units/L [facility] Blood 03/29/2025 3:57 PM CDT 03/29/2025 4:17 PM CDT us Jett Balderrama MD LAB BLOOD ORDERABLES Fin al Result [facility] Department [place] [address] * Differential, auto (03/29/2025 1:18 PM CDT) Neutrophil abs 4.64 1.50 - 6.50 K/cumm Comment:Testing performed by : [facility], [address] [place], [place] [phone] Lymphocyte abs 1.21 0.80 - 3.30 K/cumm [facility] Comment:Testing performed by : [facility], [address] [place] [address] Monocyte abs 0.41 0.20 - 0.80 K/cumm [facility] Comment:Testing performed by : [facility], [address] [place] [address] Eosinophil abs 0.28 0.00 - 0.50 K/cumm [facility] Comment:Testing performed by : [facility], [address] [place], [place] [phone] Basophil abs 0.05 0.00 - 0.10 K/cumm [facility] Comment:Testing performed by : [facility], [address] [place] [phone] Neutrophil pct 70.3 % [facility] Comment: Interpretive Data Percent cell count reference ranges are not reported, since discordance with absolute values may lead to misinterpretation of CBC data. Current Interpretive Data was last revised on 2017. Testing performed by: [facility], [address] [place] [phone] Lymphocyte pct 18.3 % [facility] Comment: Interpretive Data Percent cell count reference ranges are not reported, since discordance with absolute values may lead to misinterpretation of CBC data. Current Interpretive Data was last revised on 2017. Testing performed by: [facility], [address] [place] [phone] Monocyte pct 6.2 % [facility] Comment: Interpretive Data Percent cell count reference ranges are not reported, since discordance with absolute values may lead to misinterpretation of CBC data. Current Interpretive Data was last revised on 2017. Testing performed by: [facility], [address] [place] [phone] Eosinophil pct 4.3 % [facility] Comment: Interpretive Data Percent cell count reference ranges are not reported, since discordance with absolute values may lead to misinterpretation of CBC data. Current Interpretive Data was last revised on 2017. Testing performed by: [facility], [address] [place], [place] [phone] Basophil pct 0.8 % [facility] Comment: Interpretive Data Percent cell count reference ranges are not reported, since discordance with absolute values may lead to misinterpretation of CBC data. Current Interpretive Data was last revised on 2017. Testing performed by: [facility], [address] [place] [address] Blood 03/29/2025 1:18 PM CDT 03/29/2025 1:22 PM CDT us Brian Min MD LAB BLOOD ORDERABLES Final Res ult [facility] Department [place] [address] * (ABNORMAL) CBC with auto differential (03/29/2025 1:18 PM CDT) WBC 6.60 3.80 - 9.90 K/cumm Comment:Testing performed by : [facility], [address] [place] [phone] Hgb 12.9(L) 13.0 - 17.5 g/dL [facility] Comment:Testing performed by : [facility], [address] [place] [address] Hct 39.4 38.9 - 50.3 % [facility] Comment:Testing performed by : [facility], [address] [place] [address] Plt 271 150 - 400 K/cumm [facility] Comment:Testing performed by : [facility], [address] [place] [address] MPV 7.5 6.8 - 10.4 fL [facility] Comment:Testing performed by : [facility], [address] [place] [place] [address] RBC 4.50 4.30 - 5.80 M/cumm [facility] Comment:Testing performed by : [facility], [address] [place] [address] MCV 87.6 81.3 - 96.4 fL [facility] Comment:Testing performed by : [facility], [address] [place] [place] [address] MCH 28.7 27.1 - 33.3 pg [facility] Comment:Testing performed by : [facility], [address] [place] [address] MCHC 32.8 32.3 - 35.7 g/dL [facility] Comment:Testing performed by : [facility], [address] [place] [place] [address] RDW CV 13.8 11.1 - 14.9 % NO [facility] Comment:Testing performed by : [facility], [address] [place] [address] NRBC abs 0.00 0.00 - 0.01 K/cumm [facility] Comment:Testing performed by : [facility], [address] [place] [address] Blood 03/29/2025 1:18 PM CDT 03/29/2025 1:22 PM CDT us Brian Min MD LAB BLOOD ORDERABLES Final Res ult [facility] Department [place] [address] * eGFR (03/29/2025 1:18 PM CDT) eGFR 64 >=60 mL/min/1. 73 m2 Comment: Interpretive Data [...] data was last reviewed 2021. Blood 03/29/2025 1:18 PM CDT 03/29/2025 1:24 PM CDT us Brian Min MD LAB BLOOD ORDERABLES Final Res ult [facility] [place] [address] * Thyroid Function [place] (03/29/2025 1:18 PM CDT) TSH 1.73 0.30 - 4.20 mcIUnit/mL Blood 03/29/2025 1:18 PM CDT 03/29/2025 1:24 PM CDT us Brian Min MD LAB BLOOD ORDERABLES Final Res ult NO [facility] [place] [address] * Lactate dehydrogenase (LD) (03/29/2025 1:18 PM CDT) Lactate dehydrogenase (LDH) 207 100 - 250 Units/L Blood 03/29/2025 1:18 PM CDT 03/29/2025 1:24 PM CDT Brian Min MD LAB BLOOD ORDERABLES Final Res ult [facility] Department [place] [address] * (ABNORMAL) Comprehensive metabolic panel (03/29/2025 1:18 PM CDT) Pathologist [facility] Sodium 139 135 - 145 mmol/L Potassium, pl 4.4 3.3 - 4.9 mmol/L [facility] Chloride 104 97 - 110 mmol/L [facility] CO2 26 22 - 32 mmol/L [facility] Anion gap 9 2 - 15 mmol/L [facility] BUN 16 6 - 25 mg/dL [facility] Creatinine 1.18 0.80 - 1.30 mg/dL [facility] Glucose 89 70 - 199 mg/dL [facility] Comment: Interpretive Data Fasting glucose >/= [...] interpretive data was last revised 2022. Calcium 9.2 8.5 - 10.3 mg/dL [facility] Bilirubin, total 1.2 0.1 - 1.2 mg/dL [facility] Protein, pl 7.1 6.5 - 8.5 g/dL [facility] Albumin 4.0 3.5 - 5.0 g/dL [facility] Alk phos 37(L) 40 - 130 Units/L [facility] ALT <5(L) 7 - 55 Units/L [facility] Comment:Repeated and Verifie d AST 18 10 - 50 Units/L [facility] Blood 03/29/2025 1:18 PM CDT 03/29/2025 1:24 PM CDT Brian Min MD LAB BLOOD ORDERABLES Final Res ult [facility] Department [place] [address] * CT Chest Abdomen Pelvis W Contrast [...] by: Daniel Eckert M.D. Brian Min MD IMG CT PROCEDURES Final Result from Last 3 Months Insurance MDCR HMO REF MEDICARE ADVANTAGE Advance Directives For more information, please contact: [phone] * Full Code (Latest Code Status on File) Date Activated Date Inactivated Comments 03/22/2019 2:32 AM 03/25/2019 7:04 PM * Full Code Date Activated Date Inactivated Comments 07/20/2018 8:18 PM 07/23/2018 4:42 PM Care Teams Older Worker Specialist Relationship Specialty Start Date End Date Ambrose Reyes MD Referring Physician Neurosurgery 07/23/18 Nely, Marcell Hardy MD [address] [place] [address] Consulting Physician Plastic Surgery 03/11/19 [place] [address] [address] [address] Used Car Sales Supervisor Cardiology 03/29/25 [place] [address] [address] [address] Used Car Sales Supervisor Cardiology 03/29/25
--- OUTSIDE RECORDS SUMMARY | 2025-03-31 11:00 | XMS_ITS | Clinical Summary ---
Author Organization [facility] Address [facility] [place] [address] Care Team Providers Care Mineral Engineer Name Role Phone Ke Camarena MD Unavailable Unavailable Sacha Kapadia MD Unavailable [phone] Luz Marina Trujillo MD Primary Care Provider [phone] Allergies Active Allergy Reactions Criticality Noted Date Comments Codeine Unknown,Other (see comment) 07/16/2013 'Weird dreams' Morphine And Codeine Hallucinations 03/27/2016 Medications atorvastatin 40 MG tablet Take 1 tablet by mouth nightly at bedtime. 6 Active losartan 25 MG tablet Take 1 tablet by mouth daily. 6 Active KLOR-CON M20 20 MEQ tablet Take 1 tablet by mouth daily. 6 Active ranitidine 150 MG tablet Take 1 tablet by mouth 2 (two) times daily. 6 Active amiodarone 200 MG tablet Take 1 tablet (200 mg total) by mouth daily. 6 Active oxyCODONE-acetam inophen 5-325 MG tablet TAKE ONE TABLET EVERY 6 HOURS NEEDED FOR SEVERE PAIN 0 9 Active tamsulosin 0.4 MG CapIndications:E nlarged prostate with lower urinary tract symptoms (LUTS) Take 1 capsule (0.4 mg total) by mouth daily. 90 capsule 0 Active spironolactone 25 MG tablet daily. Active ALBUTEROL SULFATE HFA 108 (90 Base) MCG/ACT inhalerIndicatio ns:Bronchitis,Wh eezing INHALE TWO PUFFS BY MOUTH FOUR TIMES DAILY NEEDED 6.7 g 2 Active fluticasone propionate (FLONASE) 50 MCG/ACT nasal sprayIndications :Runny nose 1 spray by Each Nostril route nightly. 16 g 2 Active clonazePAM (KLONOPIN) 0.5 MG tabletIndication s:Generalized anxiety disorder Take 1 tablet (0.5 mg total) by mouth 3 (three) times daily as needed for Anxiety. 6 tablet 2 Active ramipril (ALTACE) 5 MG capsule 2 Active sacubitril-valsa rtan (ENTRESTO) 24-26 MG tabletIndication s:Administrative encounter Take 1 tablet by mouth 2 (two) times daily. 120 tablet 2 Active amiodarone (PACERONE) 200 MG tabletIndication s:Administrative encounter Take 1 tablet (200 mg total) by mouth daily. 60 tablet 2 Active pantoprazole EC (PROTONIX) 40 MG tabletIndication s:Administrative encounter TAKE 1 TABLET BY MOUTH DAILY 60 tablet 3 Active furosemide (LASIX) 40 MG tabletIndication s:Hypertension, unspecified type TAKE 1 TABLET (=40MG) BY MOUTH TWICE A DAY FOR FLUID RETENTION 30 tablet 3 Active carvedilol (COREG) 6.25 MG tabletIndication s:Coronary artery disease involving [place] coronary artery of [place] heart with other form of angina pectoris TAKE 1 TABLET(6.25 MG) BY MOUTH TWICE DAILY 180 tablet 3 Active gabapentin (NEURONTIN) 300 MG capsuleIndicatio ns:Coronary artery disease involving [place] coronary artery of [place] heart with other form of angina pectoris Take 1 capsule (300 mg total) by mouth 3 (three) times daily. 90 capsule 3 Active ELIQUIS 2.5 MG tabletIndication s:Coronary artery disease involving [place] coronary artery of [place] heart with other form of angina pectoris Take 1 tablet (2.5 mg total) by mouth 2 (two) times daily. 60 tablet 3 Active ENTRESTO 24-26 MG tabletIndication s:Coronary artery disease involving [place] coronary artery of [place] heart with other form of angina pectoris Take 1 tablet by mouth 2 (two) times daily. 60 tablet 3 Active pantoprazole EC (PROTONIX) 40 MG tabletIndication s:GERD (gastroesophagea l reflux disease) TAKE 1 TABLET(40 MG) BY MOUTH DAILY 90 tablet 4 Active Active Problems Problem Noted Date Diagnosed Date Diseases of mediastinum, not elsewhere classifie d 06/08/2022 Dizziness and giddiness 06/08/2022 Family history of other specified conditions 11/2021 Hematochezia 06/08/2022 Heartburn 06/08/2022 Hemopericardium as current c omplication following acute myocardial infarction ([facility]) 06/08/2022 Gastroesophageal reflux disease without esophagi tis 11/08/2021 Dizziness 09/20/2021 Mitral valve insufficiency 10/19/2020 Abnormal tomography of chest 06/07/2020 At risk of disease 06/03/2020 Dehydration 03/01/2020 Serum creatinine raised 03/01/2020 Abscess of axilla, right 03/24/2019 Overview (06/08/2022): S/p axillary sentinel lymph node biopsy 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 ([facility]) 03/12/2019 Impotence 02/25/2019 Shoulder pain 02/25/2019 Ventricular tachycardia ([facility]) 2018 Arm wound, right, subsequent encounter 9 Overview (06/08/2022): Added automatically from request for surgery [id number] Melanoma of forearm, right ([facility]) Atrial fibrillation ([facility]) 07/21/2018 Cardiomyopathy ([facility]) 07/21/2018 Cervical stenosis of spinal canal 07/21/2018 Degenerative disc disease, cervical 07/21/2018 Neck pain 07/21/2018 Anxiety disorder, unspecified 04/18/2016 intermediate manager (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) use of anticoagulants 2015 Peripheral vascular disease, unspecified 015 Unspecified atrial flutter ([facility]) Acute stress reaction 06/07/2014 CKD (chronic kidney disease) 07/17/2013 COPD (chronic obstructive pu lmonary disease) ([facility]) 07/17/2013 Encounter for other specified cardiac device in situ 07/17/2013 Overview (04/07/2019): Overview: LV (left ventricular) mural thrombus 07/17/2013 Ischemic cardiomyopathy 07/16/2013 CHF (congestive heart failure) ([facility]) Benign essential hypertension Hyperlipidemia Coronary atherosclerosis of [place] coronary francesca ry Resolved Problems Problem Noted Date Diagnosed Date Resolved Date Care Management 06/21/2022 07/06/2022 Immunizations Immunization Administration Dates Next Due Fluzone 6 Months+ Quad (0.5 mL Prefilled Syringe) 06/05/2019 Fluzone High Dose - >Age 65 (Prefilled Syringe) 05/11/2021,04/07/2020 Influenza Adult (Generic) 04/22/2023,12/2021,04/07/2020,2017,05/21/2017,04/18/2016 MODERNA COVID-19 (12+) MRNA, LNP-S, PF, 100 MCG/ 0.5 ML DOSE 08/08/2021,11/18/2020,10/14/2020 PFIZER COVID-19 (ORIGINAL FORMULATION, PURPLE CAP) mRNA, LNP-S, PF, 30 MCG/0.3 ML DOSE 08/08/2021,11/25/2020,10/14/2020 Social History Tobacco Use Types Packs/Day Years Used Date Smoking Tobacco: Former Smokeless Tobacco: Never Tobacco Cessation:Counseling Given: No Comments:1/2 ppd Alcohol Use Standard Drinks/Week Comments No 0 (1 standard drink = 0.6 oz pur e alcohol) PHQ-2 Answer Date Recorded PHQ-2 Score - If the patient scores above 3, please move on to questions 3-9 0 06/12/2022 Sex and Gender Information Value Date Recorded Sex Assigned at Not on file Legal Sex Male 10:16 AM CDT Gender Identity Not on file Sexual Orientation Not on file Last Filed Vital Signs Vital Sign Reading Time Taken Comments Blood Pressure 106/70 06/12/2022 9:34 AM STEAM BLOCKER Pulse 70 06/12/2022 9:34 AM STEAM BLOCKER Temperature 36.5 C (97.7 F) 06/12/2022 9:34 AM STEAM BLOCKER Respiratory Rate 16 06/12/2022 9:34 AM STEAM BLOCKER Oxygen Saturation 98% 06/12/2022 9:34 AM STEAM BLOCKER Inhaled Oxygen Concentration - - Weight 70.8 kg (156 lb) 06/12/2022 9:34 AM STEAM BLOCKER Height 175.3 cm (5' 9) 06/12/2022 9:34 AM STEAM BLOCKER Body Mass Index 23.04 06/12/2022 9:34 AM STEAM BLOCKER Plan of Treatment Health Maintenance Due Date Last Done Comments ASCVD Statin 1948 Hepatitis C 1966 DTaP, Tdap and Td Vaccines (1 - Tdap) 1967 Pneumococcal Vaccine: 50+ Years (1 of 2 - PCV) 1967 Zoster Vaccines (1 of 2) 1998 Annual Medicare Wellness Visit 2013 ASCVD LDL 03/31/2016 03/31/2015 RSV Immunization or 60+ Years (1 - 1-dose 75+ series) 2023 COVID-19 Vaccine (2023- season) 2024 08/08/2021, 08/08/2021, 11/25/2020, Additional history exists PHQ-2 (Physician [place]) 08/05/2024 Meningococcal B Vaccine Aged Out No l onger eligible based on patient's age to complete this topic Meningococcal Vaccine Aged Out No marielos maggie eligible based on patient's age to complete this topic RSV Immunizations Under 20 Months Aged Out No longer eligible based on patient's age to complete this topic Procedures Procedure Name Priority Date/Time Associated Diagnosis Comments LIPID PANEL Routine 03/31/2015 from Last 3 Months or Most Recently Relevant to Health Maintenance Results * LIPID PANEL (03/31/2015) CHOLESTEROL 145 HDL 26 TRIGLYCERIDES 129 LDL (CALCULATED) 93.2 03/31/2015 us Doc [facility] Final Result from Last 3 Months or Most Recently Relevant to Health Maintenance Insurance [facility] Care Teams Mineral Engineer Relationship Specialty Start Date End Date Sacha Kapadia MD [address] [address] PCP - Med Group - [facility] Attributed Provider 06/09/19 Luz Marina Trujillo MD [address] [place] [address] PCP - General FAMILY PRACTICE 03/05/22 Ke Camarena MD [place] Aircraft Mechanic CARDIOVASCULAR DISEASE 01/15/16
[2025-03-31 11:03] LABS: Hematocrit 38.8 % (42.0-52.0); Hemoglobin 12.0 g/dL (14.0-18.0); Immature Granulocyte Percent A 0.1 % (0-0.5); Lymphocytes Absolute Auto 1.14 K/mm3 (0.9-3.2); Mean Corpuscular HGB Conc 30.9 g/dl (32-36); Mean Corpuscular Hemoglobin 28.4 pg (26-34); Mean Corpuscular Volume 91.7 fl (80-100); Nucleated Red Blood Cells Absolute Auto 0.000 K/mm3 (0.0-0.012); Nucleated Red Blood Cells Perc 0.0 % (0.0-0.2); Platelet Count Result 251 k/mm3 (150-375); Red Blood Count 4.23 M/mm3 (4.6-6.20); White Blood Count 6.9 K/mm3 (4.5-10.0)
--- OUTSIDE RECORDS SUMMARY | 2025-03-31 11:03 | XMS_ITS | Encounter Summary ---
Author Organization [facility] Address [facility] [place] [address] Care Team Providers Care Cascara Bark Cutter Name Role Phone Del Lawson MD Primary Care Provider [phone] Ke Camarena MD Unavailable Unavailable Sacha Kapadia MD Primary Care Provider [phone] Sacha Kapadia MD Unavailable [phone] Anca Sales NP Primary Care Provider [phone] Luz Marina Trujillo MD Primary Care Provider [phone] Gerda Aguilera RN Unavailable [phone] Encounter Details Date Type Department Care Team (Late st Contact Info) Description 03/29/2016 Abstract [facility] AT [address] [address] Jerry Buck MA Social History Tobacco Use Types Packs/Day Years Used Date Smoking Tobacco: Every Day Comments:1/2 ppd Alcohol Use Standard Drinks/Week Comments No 0 (1 standard drink = 0.6 oz pur e alcohol) Sex and Gender Information Value Date Recorded Sex Assigned at Not on file Legal Sex Male 10:16 AM CDT Gender Identity Not on file Sexual Orientation Not on file documented as of this encounter Plan of Treatment Not on file documented as of this encounter Procedures Procedure Name Priority Date/Time Associated Diagnosis Comments CBC (OUTSIDE LAB) Routine 02/10/2016 COMPREHENSIVE METABOLIC PANEL Routine 01/05/2016 THYROID STIM HORMONE TSH Routine 01/05/2016 FOLATE (OUTSIDE LAB) Routine 09/09/2015 VITAMIN B-12 Routine 09/09/2015 LIPID PANEL Routine 03/31/2015 VITAMIN D, 25 OH Routine 03/31/2015 documented in this encounter Results * CBC (OUTSIDE LAB) (02/10/2016) WBC 10.6 HGB 14.4 HCT 43.1 PLT 277 02/10/2016 us Doc [facility] LAB-OUTSIDE/ABSTRACTED Final Result * THYROID STIM HORMONE, TSH (01/05/2016) TSH 1.12 01/05/2016 us Doc [facility] Final Result * COMPREHENSIVE METABOLIC PANEL (01/05/2016) SODIUM S/P/B 141 POTASSIUM S/P/B 3.8 CO2 26 CHLORIDE S/P/B 106 GLUCOSE 144 CALCIUM S/P/B 8.7 BUN 24 CREATININE S/P/B 1.79 EGFR NON-AFR. AMER. 39 ALKALINE PHOSPHATASE S/P/B 74 ALT 14 AST 18 BILIRUBIN TOTAL S/P/B 0.4 ALBUMIN S/P/B 3.7 3.5 - 5.0 TOTAL PROTEIN S/P/B 6.4 01/05/2016 us Doc [facility] Final Result * FOLATE (OUTSIDE LAB) (09/09/2015) FOLATE 15.95 09/09/2015 us Doc [facility] LAB-OUTSIDE/ABSTRACTED Edite d Result - Final * VITAMIN B-12 (09/09/2015) VITAMIN B12 S/P/B 1,163 09/09/2015 us Doc [facility] Final Result * VITAMIN D, 25 OH (03/31/2015) VITAMIN D 25 HYDROXY S/P/B 34 03/31/2015 us Doc [facility] Final Result * LIPID PANEL (03/31/2015) CHOLESTEROL 145 HDL 26 TRIGLYCERIDES 129 LDL (CALCULATED) 93.2 03/31/2015 us Doc [facility] Final Result documented in this encounter Visit Diagnoses Not on filedocumented in this encounter Care Teams Cascara Bark Cutter Relationship Specialty Start Date End Date Del Lawson MD PCP - General INTERNAL MEDICINE 01/16/16 07/13/18 Sacha Kapadia MD PCP - General FAMILY PRACTICE 07/14/18 02/01/22 Sacha Kapadia MD [address] [address] PCP - Med Group - [facility] Attributed Provider 06/09/19 Anca Sales NP [address] [place] [address] PCP - General NURSE PRACTITIONER 02/02/22 03/04/22 Luz Marina Trujillo MD [address] [place] [address] PCP - General FAMILY PRACTICE 03/05/22 Ke Camarena MD [place] [employer] Business Analyst CARDIOVASCULAR DISEASE 01/15/16 Gerda Aguilera, RN [address] [facility] [address] [place] [address] Registered Nurse CARE MANAGEMENT 06/21/22 07/05/22 documented as of this encounter
[2025-03-31 11:20] LABS: Alanine Aminotransferase 12 U/L (6-50); Albumin Level 4.0 g/dL (3.5-5.1); Alkaline Phosphatase 37 U/L (38-126); Anion Gap 7 mmol/L (4-12); Aspartate Amino Transferase 25 U/L (17-59); Bilirubin,Total 1.6 mg/dL (0.2-1.3); Blood Urea Nitrogen 15 mg/dL (9-20); Calcium 9.2 mg/dL (8.4-10.2); Carbon Dioxide 27 mmol/L (22-30); Chloride 106 mmol/L (98-107); Estimated CRCL calculation 48 ml/min; Estimated Glomerular Filt Rate > 60; Glucose 116 mg/dL (65-110); Potassium 4.2 mmol/L (3.4-5.0); Sodium 140 mmol/L (137-145); Total Protein 7.0 g/dL (6.3-8.2)
[2025-03-31 11:27] LABS: Troponin I 0.014 ng/mL (0.000-0.034)
[2025-03-31 12:02] LABS: INR 1.3; Prothrombin Time 16.3 Seconds (11.1-14.7)
[2025-03-31 12:03] LABS: Partial Thromboplastin Time 35.8 Seconds (22.3-36.8)
[2025-03-31] MEDS: PERFLUTREN LIPID MICROSPHERES 1.5 ML VIAL DILUTED TO 10 ML TOTAL VOLUME IV PUSH (12:20)
[2025-03-31] MEDS: HEPARIN SOD/D5W 100 UNITS/ML 25,000 UNITS/250 ML BAG 13 UNITS IV CONT (12:52)
--- NOTE | 2025-03-31 13:12 | IVDEFINITY ---
Prior to administration of IV Definity the patient was educated on the risks and benefits of the imaging enhancing agent including potential adverse side effects. The patient verbalized understanding. Allergies were verified. No exclusion criteria were identified and at least one of the following inclusion criteria were met: 1) physician request, 2) patient technically difficult to image (per the [place] [employer] Echocardiography guidelines of two or more segments not discernable within the apical view), or 3) questionable left ventricular function. ?
--- NOTE | 2025-03-31 13:37 | ECG_ITS ---
Test Date: 2025-03-31 13:48:20 Measurements Intervals [place] Rate: 98 P: 66 VA: 183 QRS: 66 QRSD: 112 T: -83 QT: 377 QTc: 483 Interpretive Statements SINUS RHYTHM INCOMPLETE LEFT BUNDLE BRANCH BLOCK DELAYED PRECORDIAL R/S TRANSITION LOW QRS VOLTAGE IN LIMB LEADS BORDERLINE ST-T WAVE ABNORMALITY- INF/LAT LEADS ABNORMAL ECG Compared to ECG 12/25/2024 22:28:26 INCOMPLETE LEFT BUNDLE BRANCH BLOCK NOW PRESENT Electronically Signed On 03-31-2025 14:36:20 CDT by Wero Horton D.O.
[2025-03-31 14:17] LABS: Troponin I 0.015 ng/mL (0.000-0.034)
[2025-03-31 19:29] LABS: Partial Thromboplastin Time 194.5 Seconds (22.3-36.8)
== END 2025-03-31 20:50 | disposition short-term general hospital (02) ==
PROVIDERS: Emergency Provider Student in an Organized Health Care Education/Training Program; PCP Family Medicine
DX: I24.0 Acute coronary thrombosis not resulting in myocardial infarction (principal); I25.5 Ischemic cardiomyopathy; I13.0 Hypertensive heart and chronic kidney disease with heart failure and stage 1 through stage 4 chronic kidney disease, or unspecified chronic kidney disease; N18.31 Chronic kidney disease, stage 3a; I50.9 Heart failure, unspecified; I48.20 Chronic atrial fibrillation, unspecified; I25.2 Old myocardial infarction; J43.9 Emphysema, unspecified; N40.0 Benign prostatic hyperplasia without lower urinary tract symptoms; E78.2 Mixed hyperlipidemia; F41.9 Anxiety disorder, unspecified; Z95.5 Presence of coronary angioplasty implant and graft; Z95.810 Presence of automatic (implantable) cardiac defibrillator; Z85.820 Personal history of malignant melanoma of skin; Z86.16 Personal history of COVID-19; Z87.891 Personal history of nicotine dependence; Z79.01 Long term (current) use of anticoagulants; I44.7 Left bundle-branch block, unspecified
CPT/HCPCS: 36415; 71275; 80053; 84484; 85025; 85610; 85730; 93005; 96365; 96366; 96375; 99285; C8929; J1644; Q9957; Q9967

== ENCOUNTER 2025-04-03 12:51 | Emergency (ER) | payer MEDICARE, SELFPAY ==
--- NOTE | 2025-04-03 13:17 | ED.GENADULT ---
HPI - General Adult General Chief complaint: Recheck/Abnormal Lab/Rx Stated complaint: MED REFILL Time Seen by Provider: 04/03/25 13:05 History of Present Illness HPI narrative: 74-year-old male presents emergency department for medication refill. Related Data Home Medications ?Medication ?Instructions ?Recorded ?Confirmed ?Last Taken ?Type dofetilide 250 mcg capsule 250 mcg PO Q12H 12/04/24 03/31/25 Unknown History magnesium oxide 400 mg (241.3 mg 400 mg PO QAM 12/04/24 03/31/25 Unknown History magnesium) tablet apixaban 2.5 mg tablet (Eliquis) 2.5 mg PO Q12H 12/26/24 03/31/25 Unknown History rosuvastatin 10 mg tablet 10 mg PO DAILY 12/26/24 03/31/25 Unknown History metoprolol succinate 25 mg 25 mg PO DAILY 01/31/25 03/31/25 Unknown History tablet,extended release 24 hr Allergies Allergy/AdvReac Type Severity Reaction Status Date / Time codeine AdvReac Mild HALLUCINATI Verified 03/31/25 10:57 ONS Review of Systems Review of Systems: All systems reviewed & are unremarkable except as noted in HPI and below PMFSH Past Medical History Medical History (Updated 04/03/25 @ 13:20 by William Faith MD) Left ventricular apical thrombus moderate left ventricular apical thrombus on echo 03/31/2025. Cough Bronchiectasis COPD exacerbation Acute kidney injury superimposed on CKD ICD (implantable cardioverter-defibrillator) in place Atrial fibrillation with rapid ventricular response Benign paroxysmal positional vertigo due to bilateral vestibular disorder Acute bronchitis GERD (gastroesophageal reflux disease) Chronic kidney disease (CKD) stage G3a/A2, moderately decreased glomerular filtration rate (GFR) between 45-59 mL/min/1.73 square meter and albuminuria creatinine ratio between 30-299 mg/g (~12/13/23) BUN 28, creatinine 1.40 with GFR 49 on 12/13/2023. BUN 26, creatinine 1.3 with GFR 54 on 04/27/2024. BPH without obstruction/lower urinary tract symptoms PSA 2.1 on 12/13/2023. BPPV (benign paroxysmal positional vertigo) Encounter for prostate cancer screening PSA 2.1 on 12/13/2023. History of malignant melanoma right forearm with wide excision 2020 Chronic atrial fibrillation BMI 24.0-24.9, adult Ischemic cardiomyopathy with implantable cardioverter-defibrillator (ICD) Recent ejection fraction of 15%. Echo 02/21/2024 with severe global left ventricular hypokinesis with ejection fraction of 25% with moderate mitral valve regurgitation. Echo with ejection fraction 25% and grade 2 diastolic dysfunction on 04/30/2024. Echo with ejection fraction 20% 2024. Mixed hyperlipidemia Cholesterol 243, triglycerides 123, HDL 52, LDL 139 on 12/13/2023. Cholesterol 226, triglycerides 116, HDL 42, LDL 145 on 04/27/2024. Chronic anxiety Seasonal allergic rhinitis Chronic low back pain with right-sided sciatica x-ray of the lumbar spine on 09/18/2023 reveals mild degenerative changes of the lumbar spine COVID-19 Iron deficiency anemia Iron 116 with 32% saturation and ferritin 71.5 with hemoglobin 15.2 on 12/13/2023. Elevated LFTs Acute kidney injury Elevated troponin CAD (coronary artery disease) acute [place] with stents. Atrial fibrillation with RVR Acute on chronic heart failure with reduced ejection fraction and diastolic dysfunction Echo on 03/31/2025 with ejection fraction 20-25% with diastolic dysfunction and moderate left ventricular apical thrombus. Current use of senior care anticoagulation Pacemaker Dizziness Transaminitis Afib CHF (congestive heart failure) HTN (hypertension) HLD (hyperlipidemia) COPD (chronic obstructive pulmonary disease) Severe emphysema on CT angiogram of the chest on 03/31/2025. Reactive lymphadenopathy. apical thrombus left ventricle. Heart disease Skin cancer Family History Family History Father Heart disease Other Cerebrovascular accident Mother Kidney failure Heart disease Acute myocardial infarction Social History Social History Social History: Patient lives on his own. He denies having any children or pets. Jorge his brother is his surrogate. and he wishes to be a full code. Smoking packs per day: 0.5 Smoking cigarettes per day: 10.0 Years smoked: 18 Smoking pack-years: 9.00 Smoking status: Never smoker Tobacco type: cigarettes Second hand tobacco smoke exposure: No Smoking end date: 07/08/14 Alcohol intake: current Drinks per week: 1 Alcohol use details: beer Substance use: never Substance use type: does not use Do You Feel Safe in your Home?: Yes Lack of Transportation: No Lack of Food: Never True Current Housing: I Have Housing Concerned About Future Housing: No Difficulty Paying Gas/Electric Bills: No Difficulty Paying for Meds: YES Currently Unemployed: No Education: High School Diploma/GED Difficulty w/ Childcare or Family Care: No Living arrangements: alone Gender identity (if verbalized by the patient): Male Sexual Orientation (if Verbalized by the Patient): Straight or Heterosexual Spiritual care concerns: No Agree to blood products: Yes Exam Narrative: APPEARANCE: Well appearing, no pain, no distress, well-nourished. HEAD: normocephalic, atraumatic. EYES: PERRLA/EOMI, conjunctivae clear. NOSE: Normal no drainage EARS:TMS clear with good light reflex. THROAT: Pharynx clear, no exudate. NECK: Supple. No adenopathy, no masses. RESPIRATORY: Airway patent, respirations nonlabored. Clear to auscultation bilaterally, no rales, rhonchi, wheezing. CARDIOVASCULAR: Regular rate and rhythm without murmurs rubs or gallops. ABDOMINAL: Soft, nontender, nondistended, normal bowel sounds MUSCULOSKELETAL: Moves all extremities. Strength/ROM intact, No edema, No calf tenderness. NEURO: Alert. Cranial nerves II through XII intact. Grossly intact SKIN: Warm, dry. Normal Color Course Vital Signs Vital signs: Vital Signs Temperature 98 F 04/03/25 13:20 Pulse Rate 99 04/03/25 13:20 Respiratory Rate 20 04/03/25 13:20 Blood Pressure 120/80 04/03/25 13:20 Pulse Oximetry 99 04/03/25 13:20 Oxygen Delivery Room Air 04/03/25 13:20 Temperature 98 F 04/03/25 13:20 Pulse Rate 99 04/03/25 13:20 Respiratory Rate 20 04/03/25 13:20 Blood Pressure 120/80 04/03/25 13:20 Pulse Oximetry 99 04/03/25 13:20 Oxygen Delivery Room Air 04/03/25 13:20 Medical Decision Making MDM Narrative Medical decision making narrative: 74-year-old male presents emergency department for medication refill. Patient is asymptomatic. Patient's medications were refilled. Patient was provided a refill on his albuterol inhaler and on his dofetilide. Vital Signs Vital Signs: Vital Signs Temperature 98 F 04/03/25 13:20 Pulse Rate 99 04/03/25 13:20 Respiratory Rate 20 04/03/25 13:20 Blood Pressure 120/80 04/03/25 13:20 Pulse Oximetry 99 04/03/25 13:20 Oxygen Delivery Room Air 04/03/25 13:20 Temperature 98 F 04/03/25 13:20 Pulse Rate 99 04/03/25 13:20 Respiratory Rate 20 04/03/25 13:20 Blood Pressure 120/80 04/03/25 13:20 Pulse Oximetry 99 04/03/25 13:20 Oxygen Delivery Room Air 04/03/25 13:20 Discharge Plan Discharge Clinical Impression: Medication refill Patient Disposition: Home Condition: Stable Instructions: Antibiotic Form Additional Instructions: Your prescriptions were sent to [facility] in [place]. Have close follow-up with your primary care physician Patient Language: Nepali Prescriptions: New dofetilide 250 mcg capsule 250 mcg PO BID 14 Days Qty: 28 0RF albuterol sulfate 90 mcg/actuation HFA aerosol inhaler 1 puff inhalation QID Qty: 6.7 0RF No Action albuterol sulfate 90 mcg/actuation HFA aerosol inhaler 2 puff INHALATION QID PRN (Reason: shortness of breath or wheezing) Qty: 8.5 11RF magnesium oxide 400 mg (241.3 mg magnesium) tablet 400 mg PO QAM dofetilide 250 mcg capsule 250 mcg PO Q12H rosuvastatin 10 mg tablet 10 mg PO DAILY Eliquis 2.5 mg tablet 2.5 mg PO Q12H sacubitril-valsartan 24-26 mg tablet 0.5 tablet PO BID Qty: 30 0RF Rx Instructions: Patient need to cut the Entresto tablet into half and take it as twice a day. restarted by surveillance director 01/18/2025. metoprolol succinate 25 mg tablet extended release 24 hr 25 mg PO DAILY Patient Comments: started by surveillance director 01/18/2025. clonazepam 0.5 mg tablet 0.5 mg PO QHS PRN (Reason: anxiety) Qty: 30 5RF Rx Instructions: administer 30 minutes before bedtime Follow-up/Referrals: Nj Espino MD [Primary Care Provider, Family Practice]
[2025-04-03 13:20] VITALS: BP 120/80; PULSE 99; RESP 20; TEMP 36.6; O2SAT 99
== END 2025-04-03 13:30 | disposition home or self-care (01) ==
PROVIDERS: Emergency Provider Emergency Medicine; PCP Family Medicine
DX: I48.91 Unspecified atrial fibrillation (principal); Z76.0 Encounter for issue of repeat prescription; I25.5 Ischemic cardiomyopathy; I13.0 Hypertensive heart and chronic kidney disease with heart failure and stage 1 through stage 4 chronic kidney disease, or unspecified chronic kidney disease; N18.31 Chronic kidney disease, stage 3a; I50.9 Heart failure, unspecified; I48.20 Chronic atrial fibrillation, unspecified; I25.2 Old myocardial infarction; J43.9 Emphysema, unspecified; N40.0 Benign prostatic hyperplasia without lower urinary tract symptoms; E78.5 Hyperlipidemia, unspecified; F41.9 Anxiety disorder, unspecified; Z95.5 Presence of coronary angioplasty implant and graft; Z95.810 Presence of automatic (implantable) cardiac defibrillator; Z85.820 Personal history of malignant melanoma of skin; Z86.16 Personal history of COVID-19; Z87.891 Personal history of nicotine dependence; Z79.01 Long term (current) use of anticoagulants
CPT/HCPCS: 99281

== ENCOUNTER 2025-06-23 13:15 | Outpatient (CLI) | payer MEDICARE, SELFPAY ==
[2025-06-23 15:04] LABS: Anion Gap 5 mmol/L (4-12); Blood Urea Nitrogen 23 mg/dL (9-20); Calcium 8.9 mg/dL (8.4-10.2); Carbon Dioxide 29 mmol/L (22-30); Chloride 100 mmol/L (98-107); Estimated Glomerular Filt Rate 51; Glucose 90 mg/dL (65-110); Magnesium 2.1 mg/dL (1.6-2.3); Potassium 4.9 mmol/L (3.4-5.0); Sodium 134 mmol/L (137-145)
--- OUTSIDE RECORDS SUMMARY | 2025-06-23 19:36 | XMS_ITS ---
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 03/04/2023 Dyslipidemia 03/04/2023 Chronic obstructive pulmonary disease 03/04/2023 Heartburn [...] (02/25/2019): Added automatically from request for surgery [id number] Melanoma of forearm, right 01/15/2019 Encounter for preprocedural cardiovascular exami [facility] 2018 Neck pain 07/21/2018 Atrial fibrillation 07/21/2018 Cardiomyopathy 07/21/2018 Degenerative disc disease, cervical 07/21/2018 Cervical stenosis of spinal canal 07/21/2018 Anxiety disorder, unspecified 04/18/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 Cardiomyopathy 05/09/2015 Peripheral vascular disease, unspecified 015 Peripheral vascular disease, unspecified 015 Unspecified atrial fibrillation 06/28/2014 Unspecified atrial flutter 06/28/2014 Acute stress reaction 06/07/2014 Acute stress reaction 06/07/2014 Coronary atherosclerosis 07/24/2013 CKD (chronic kidney disease) 07/17/2013 COPD (chronic obstructive pulmonary disease) Coronary atherosclerosis of [place] coronary francesca ry 07/17/2013 Encounter for other specified cardiac device in situ 07/17/2013 Overview (02/25/2019): Overview: LV (left ventricular) mural thrombus 07/17/2013 CHF (congestive heart failure) 07/16/2013 Ischemic cardiomyopathy 07/16/2013 Primary hypertension 08/05/1959 Current Treatment and Therapy Plans [...]
--- OUTSIDE RECORDS SUMMARY | 2025-06-23 19:36 | XMS_ITS | Clinical Summary ---
Author Organization [facility] Address [address] [place] [address] Care Team Providers Care Film And Video Editor Name Role Phone Ambrose Reyes MD Unavailable Marcell Mckay MD Unavailable Jose Ma MD Unavailable [phone] SahJuwan meredith MD Unavailable [phone] Nj Espino MD Primary Care Provider [phone] Allergies Active Allergy Reactions Criticality Noted Date Comments Codeine Delusions,Other (See comments),Hallucinations Medium 07/16/2013 'Weird dreams' Morphine Rash Medium 01/12/2019 Medications acetaminophen (TYLENOL) 500 mg tablet Take 1 tablet (500 mg total) by mouth every 6 (six) hours as needed for pain or headaches Active pantoprazole DR (PROTONIX) 40 mg EC tablet Take 1 tablet (40 mg total) by mouth daily 1 Active azelastine (ASTELIN) 137 mcg (0.1 %) nasal spray Administer 1 spray into each nostril 2 (two) times a day 4 Active apixaban (ELIQUIS) 5 mg tablet Take 1 tablet (5 mg total) by mouth 2 (two) times a day 60 tablet 5 Active dofetilide (TIKOSYN) 250 mcg capsule Take 1 capsule (250 mcg total) by mouth 2 (two) times a day 60 capsule 5 Active Entresto 24-26 mg tablet Take 1 tablet by mouth 2 (two) times a day 60 tablet 5 Active metoprolol XL (TOPROL-XL) 25 mg extended release tablet Take 1 tablet (25 mg total) by mouth daily 30 tablet 5 Active rosuvastatin (CRESTOR) 10 mg tablet Take 1 tablet (10 mg total) by mouth daily 30 tablet 5 Active Breztri Aerosphere 160-9-4.8 mcg/actuation inhalerIndicati ons: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),Melanoma of forearm, right (HCC) Inhale 2 puffs 2 (two) times a day 10.7 g 5 Active albuterol HFA (PROVENTIL HFA,VENTOLIN HFA,PROAIR HFA) 90 mcg/actuation inhaler Inhale 1-2 puffs every 4 (four) hours as needed for wheezing or shortness of breath 1 each 5 Active Active Problems Problem Noted Date [...] (02/25/2019): Added automatically from request for surgery [id number] Melanoma of forearm, right 01/15/2019 Encounter for preprocedural cardiovascular exami nation 2018 Neck pain 07/21/2018 Atrial fibrillation 07/21/2018 Cardiomyopathy 07/21/2018 Degenerative disc disease, cervical 07/21/2018 Cervical stenosis of spinal canal 07/21/2018 Anxiety disorder, unspecified 04/18/2016 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 2015 Cardiomyopathy 05/09/2015 Peripheral vascular disease, unspecified 015 Peripheral vascular disease, unspecified 015 Unspecified atrial fibrillation 06/28/2014 Unspecified atrial flutter 06/28/2014 Acute stress reaction 06/07/2014 Acute stress reaction 06/07/2014 Coronary atherosclerosis 07/24/2013 CKD (chronic kidney disease) 07/17/2013 COPD (chronic obstructive pulmonary disease) Coronary atherosclerosis of elim ira coronary francesca ry 07/17/2013 Encounter for other specified cardiac device in situ 07/17/2013 Overview (02/25/2019): Overview: LV (left ventricular) mural thrombus 07/17/2013 CHF (congestive heart failure) 07/16/2013 Ischemic cardiomyopathy 07/16/2013 Primary hypertension 08/05/1961 Encounters Date Type Department Care Team Description 04/01/2025 11:59 PM CDT Anesthesia Event [facility] [id number] [place] [address] Elisa Portillo MD 04/01/2025 Results Follow-Up [facility] Emergency Department [address] [place] [phone] Sadiq Sosa RN ECG 12 lead 04/01/2025 Orders Only [facility] [id number] [place] [id number] Juwan Zavala MD Cardiomyopathy (Primary Dx); CHF (congestive heart failure) (HCC) 03/31/2025 9:47 PM CDT - 04/02/2025 1:45 PM CDT Hospital Encounter [facility] [address] [place] [address] Ilene Lopez MD Rivera, Samantha, MD Left ventricular thrombus (Primary Dx); 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); Melanoma of forearm, right (HCC) Discharge Disposition: Discharge to home or self care 03/31/2025 Telephone [facility] Medicine Cardiology [facility] Advanced Medicine 8th [place] [address] [place] [phone] Nas Sage MD 03/29/2025 4:02 PM CDT - 03/29/2025 7:02 PM CDT Emergency [facility] Emergency Department 1 [place] [address] Jett Balderrama MD LV (left ventricular) mural thrombus (Primary Dx) Discharge Disposition: Left Against Medical Advice 03/29/2025 2:40 PM CDT Office Visit [facility] Medicine Oncology 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 [address] Malignant neoplasm metastatic to lymph node of [...] History Medical History Date Comments Hypertension Hyperlipidemia MD (myocardial infarction) (HCC) Heart disease Heart attack [...] Used Date Smoking Tobacco: Former Cigarettes 0.5 31.9 S tarted: 1993 Smokeless Tobacco: Never Tobacco Cessation:Counseling Given: Yes Alcohol Use Standard Drinks/Week Comments Yes 4 (1 standard drink = 0.6 oz pur e alcohol) Social Connection and Isolation Panel Answer Date Recorded In a typical week, how many times do you talk on the phone with family, friends, or neighbors? Three times a week 04/01/2025 How often do you get togethe r with friends or relatives? Once a week 04/01/2025 How often do you attend chur ch or alevism services? Never 04/01/2025 Do you belong to any clubs o r organizations such as episcopalian groups, unions, fraternal or athletic groups, or school groups? No 04/01/2025 How often do you attend meet ings of the clubs or organizations you belong to? Never 04/01/2025 Are you , , di vorced, , never , or living with a partner? Never 04/01/2025 Overall Financial Resource Strain (CARDIA) Answe r Date Recorded How hard is it for you to pa y for the very basics like food, housing, medical care, and heating? Somewhat hard 04/01/2025 Hunger Vital Sign Answer Date Recorded Within the past 12 months, y ou worried that your food would run out before you got the money to buy more. Never true 04/01/20 25 Within the past 12 months, t he food you bought just didn't last and you didn't have money to get more. Never true 04/01/2025 PRAPARE - Transportation Answer Date Re corded In the past 12 months, has l ack of transportation kept you from medical appointments or from getting medications? No 03/06 In the past 12 months, has l ack of transportation kept you from meetings, work, or from getting things needed for daily living? No 04/01/2025 Housing Stability Vital Sign Answer Allen e Recorded In the last 12 months, was t here a time when you were not able to pay the mortgage or rent on time? No 04/01/2025 In the past 12 months, how m any times have you moved where you were living? 0 04/01/2025 At any time in the past 12 m [facility], were you homeless or living in a long term (including now)? No 04/01/2025 [facility] Utilities Answer Date Recorded In the past 12 months has th e electric, gas, oil, or water company threatened to shut off services in your home? No 04/01/2025 Personal Safety Answer Date Recorded Have you ever been in or are you currently in a harmful physical or emotional relationship or is someone making you feel afraid or unsafe? 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 Gender Identity Not on file Sexual Orientation Not on file Last Filed Vital Signs Vital Sign Reading Time Taken Comments Blood Pressure 126/90 04/02/2025 1:00 PM CDT Pulse 86 04/02/2025 1:00 PM CDT Temperature 36.7 C (98 F) 04/02/2025 12:00 PM CDT Respiratory Rate 17 04/02/2025 1:00 PM CDT Oxygen Saturation 91% 04/02/2025 1:00 PM CDT Inhaled Oxygen Concentration - - Weight 69.2 kg (152 lb 8.9 oz) 03/31/2025 9:45 P M CDT Height 172.7 cm (5' 8) 03/31/2025 9:45 PM CDT Body Mass Index 23.2 03/31/2025 9:45 PM CDT Plan of Treatment Health Maintenance Due Date Last Done Comments Depression Screening 1950 Hepatitis C Screening 1950 DTaP/Tdap/Td Vaccine (1 - Tdap) 1959 Hepatitis B Screening 1966 Pneumococcal vaccine 65+ (1 of 2 - PCV) 1967 Zoster Vaccine (1 of 2) 1967 Well Visit 65+ 2013 Covid-19 Vaccine (7 - 2024-2 6 season) 2025 08/08/2021, 08/08/2021, 11/25/2020, Additional history exists Influenza Vaccine (#1) 2025 , 04/22/2023, 05/09/2022, Additional history exists Fall Risk Assessment 04/02/2026 04/02/2025 Abdominal Aortic Aneurysm (A AA) Screen Completed 03/29/2025, 11/02/2024, 05/18/2024, Additional history exists Medical Devices Implanted Type Area Thread Puller Device Identifier Shelf Expiration Date Model / Serial / Lot [employer] Icd E162 ICD Left: Chest [employer] E162 / [id number] / [employer] Ra Lead 4136 Lead Heart [employer] C.R.M. 4136 / [id number] / [employer] Rv Lead 0292 Lead Heart [employer] C.R.M. 0292 / [id number] / Procedures Procedure Name Priority Date/Time Associated Diagnosis Comments ECG 12-LEAD Timed 04/01/2025 3:03 PM CDT TRANSTHORACIC ECHO (TTE) COMPLETE W DOPPLER/CF W CONTRAST Routine 04/01/2025 3:03 PM CDT INFECTION PREVENTION HAZEL AURIS PCR, SURVEILLANCE Routine 04/01/2025 12:42 PM CDT ECG 12-LEAD STAT 04/01/2025 12:20 PM CDT EGFR STAT 04/01/2025 6:29 AM CDT APTT STAT 04/01/2025 6:29 AM CDT COMPREHENSIVE METABOLIC PANEL STAT 04/01/2025 6:29 AM CDT MAGNESIUM STAT 04/01/2025 6:29 AM CDT PHOSPHORUS STAT 04/01/2025 6:29 AM CDT LIPID PANEL STAT 04/01/2025 6:29 AM CDT DIFFERENTIAL AUTO Routine 03/31/2025 10: 57 PM CDT APTT STAT 03/31/2025 10:57 PM CDT CBC WITHOUT DIFFERENTIAL STAT 03/31/2025 10:57 PM CDT PROTIME-INR STAT 03/31/2025 10:57 PM CDT CBC WITH AUTO DIFFERENTIAL Routine 03/31/2025 10:57 PM CDT WA CRITICAL CARE ILL/INJURED PATIENT INIT 30-74 MIN Routine 03/29/2025 7:02 PM CDT TROPONIN I HIGH-SENSITIVITY 2-HOUR Timed 03/29/2025 5:31 [...] (HCC) from Last 3 Months Results * ECG 12 lead (04/01/2025 3:03 PM CDT) 04/01/2025 3:03 PM CDT Narrative [facility] - 04/01/2025 9:38 PM CDT Vent Rate: 98 bpm RR Interval: 612 msec WA Interval: 183 msec QRS Duration: 106 msec QT Interval: 387 msec QTC Interval: 442 msec P-R-T Paola: 72 - 86 - -89 degrees IMPRESSION: SINUS RHYTHM WITH OCCASIONAL VENTRICULAR PREMATURE COMPLEXES LOW QRS VOLTAGE Electronically Signed By: Duke Ahn MD, [facility] us Juwan Zavala MD ECG ORDERABLES Final Result [facility] * TRANSTHORACIC ECHO (TTE) COMPLETE W DOPPLER/CF W CONTRAST (04/01/2025 3:03 PM CDT) Estimated EF 10 % CONS SCIMAGE EF Mod BP 10 % CONS SCIMAGE Anatomical Region Laterality Modality Ultrasound 04/01/2025 1:4 5 PM CDT Narrative 04/01/2025 4:56 [place] [address] Echocardiogram Report ADDENDUM Patient Name: KARIN JACKSON D : 1950 Study Date: 04/01/2025 1:45:37 PM Sex: M Tech: Location: [id number] Ref Provider: CARLTON WELLINGTON Height(Cm): 173 BSA: 1.82 Weight(Kg): 69.2 Heart Rate: 102 BP: 101 / 75 Quality: Good Order Provider: CARLTON WELLINGTON PROCEDURES: Echocardiographic Report: Transthoracic echocardiogram with complete 2D, M-Mode, color Doppler examination and contrast. INDICATIONS: Intraventricular Thrombus. MEASUREMENTS: 2D/MM Value Range Doppler Value Range EF Mod BP 10 % [ 52 - 72 ] GIL Vmax 2.87 cm2 Estimated EF 10 % AV Mean PG 3 mmHg LVIDd 2D 5.35 cm [ 4.20 - 5.80 ] AV Peak Yo 1.03 m/s [ 1.00 - 1.70 ] LVIDs 2D 4.71 cm [ 2.50 - 4.00 ] AV VTI 14.35 cm LVPWd 2D 0.97 cm [ 0.60 - 1.00 ] LVOT Diam 2.83 cm IVSd 2D 1.12 cm [ 0.60 - 1.00 ] LVOT Peak Yo 0.47 m/s [ 0.70 - 1.10 ] LA Dimension 2D 3.33 cm [ 3.00 - 4.00 ] LVOT VTI 7.54 cm LA Dimension MM 4.55 cm [ 3.00 - 4.00 ] SI LVOT 26.0 ml/m2 [ >= 35.0 ] AoR Diam MM 3.25 cm [ 3.10 - 3.70 ] MV E Peak Yo 0.74 m/s [ 0.60 - 1.30 ] MV A Peak Yo 0.14 m/s [ 1.00 - 1.20 ] MV Mean PG 1 mmHg MV PHT 40 msec [ 20 - 100 ] MVA PHT 5.50 cm2 MV Decel Time 138 msec [ 104 - 258 ] PV Peak Yo 0.60 m/s [ 0.40 - 0.80 ] TR Peak Yo 1.84 m/s [ 1.00 - 2.80 ] TR Peak PG 14 mmHg E` 0.06 m/s E/E` 12.66 2D/MM Value Range Doppler Value Range - FINDINGS: Atrial Septum: Normal atrial septum. Left Ventricle: Left ventricle cavity is within upper limits of normal. Mild concentric left ventricular hypertrophy. Severe global left ventricular systolic dysfunction. There is restrictive diastolic dysfunction Grade III to IV. Left Atrium: Left atrial size is within upper limits of normal. Right Ventricle: Normal right ventricular size. Moderate right ventricular hypokinesis. Pacemaker noted. Right Atrium: The right atrium is normal in size. Linear artifact in right atrium suggestive of catheter(s), pacemaker lead(s), or ICD lead(s). Aortic Valve: Aortic valve not well visualized. No evidence of hemodynamically significant aortic stenosis by Doppler. Mitral Valve: Normal structure of the mitral valve. Pulmonic Valve: Pulmonic valve not well visualized. Tricuspid Valve: Normal structure of the tricuspid valve. Estimated peak RVSP is 19 mmHg. Trivial regurgitation in the tricuspid valve. Pericardium: Normal pericardium with no significant pericardial effusion. Aorta: Aortic root not well visualized. IVC: The IVC is not well visualized. CONCLUSIONS: Technically difficult study with limited views. Echo contrast was used. Left ventricle cavity is within upper limits of normal. Mild concentric left ventricular hypertrophy. Prominent LV trabeculations, no definite thrombus. Severe global left ventricular systolic dysfunction. Restrictive diastolic dysfunction Grade III to IV. Ejection Fraction calculated at 10 %. Normal right ventricular size with hypokinesis. Pacemaker/ICD lead noted in RA/RV. Normal structure of the mitral valve. No significant MR. Aortic valve not well visualized. No evidence of hemodynamically significant aortic stenosis by Doppler. Estimated RVSP 19 mmHg. Trivial regurgitation in the tricuspid valve. Electronically Signed By: Duke Ahn MD, [facility] 2025-04-01 16:55:28 CDT Electronically Amended By: Duke Ahn MD, [facility] 04/01/2025 4:56:06 PM CDT [ADDENDUM] Procedure Note Duke Ahn MD - 04/01/2025 [place] [address] Echocardiogram Report ADDENDUM Patient Name: KARIN JACKSON D : 1950 Study Date: 04/01/2025 1:45:37 PM Sex: M Tech: Location: [place] [address] Ref Provider: CARLTON WELLINGTON Height(Cm): 173 BSA: 1.82 Weight(Kg): 69.2 Heart Rate: 102 BP: 101 / 75 Quality: Good Order Provider: CARLTON WELLINGTON PROCEDURES: Echocardiographic Report: Transthoracic echocardiogram with complete 2D, M-Mode, color Dopplerexamination and contrast. INDICATIONS: Intraventricular Thrombus. MEASUREMENTS: 2D/MM Value Range Doppler ValueRange EF Mod BP 10 % [ 52 - 72 ] GIL Vmax 2.87cm2 Estimated EF 10 % AV Mean PG 3 mmHg LVIDd 2D 5.35 cm [ 4.20 - 5.80 ] AV Peak Yo 1.03 m/s[ 1.00 - 1.70 ] LVIDs 2D 4.71 cm [ 2.50 - 4.00 ] AV VTI 14.35cm LVPWd 2D 0.97 cm [ 0.60 - 1.00 ] LVOT Diam 2.83cm IVSd 2D 1.12 cm [ 0.60 - 1.00 ] LVOT Peak Yo 0.47 m/s[ 0.70 - 1.10 ] LA Dimension 2D 3.33 cm [ 3.00 - 4.00 ] LVOT VTI 7.54cm LA Dimension MM 4.55 cm [ 3.00 - 4.00 ] SI LVOT 26.0ml/m2 [ >= 35.0 ] AoR Diam MM 3.25 cm [ 3.10 - 3.70 ] MV E Peak Yo 0.74 m/s[ 0.60 - 1.30 ] MV A Peak Yo 0.14 m/s [ 1.00 - 1.20 ] MV Mean PG 1 mmHg MV PHT 40 msec [ 20 - 100 ] MVA PHT 5.50 cm2 MV Decel Time 138 msec [ 104 - 258 ] PV Peak Yo 0.60 m/s [ 0.40 - 0.80 ] TR Peak Yo 1.84 m/s [ 1.00 - 2.80 ] TR Peak PG 14 mmHg E` 0.06 m/s E/E` 12.66 2D/MM Value Range Doppler ValueRange - FINDINGS: Atrial Septum: Normal atrial septum. Left Ventricle: Left ventricle cavity is within upper limits of normal. Mild concentricleft ventricular hypertrophy. Severe global left ventricular systolic dysfunction. There isrestrictive diastolic dysfunction Grade III to IV. Left Atrium: Left atrial size is within upper limits of normal. Right Ventricle: Normal right ventricular size. Moderate right ventricular hypokinesis.Pacemaker noted. Right Atrium: The right atrium is normal in size. Linear artifact in right atriumsuggestive of catheter(s), pacemaker lead(s), or ICD lead(s). Aortic Valve: Aortic valve not well visualized. No evidence of hemodynamicallysignificant aortic stenosis by Doppler. Mitral Valve: Normal structure of the mitral valve. Pulmonic Valve: Pulmonic valve not well visualized. Tricuspid Valve: Normal structure of the tricuspid valve. Estimated peak RVSP is 19 mmHg.Trivial regurgitation in the tricuspid valve. Pericardium: Normal pericardium with no significant pericardial effusion. Aorta: Aortic root not well visualized. IVC: The IVC is not well visualized. CONCLUSIONS: Technically difficult study with limited views. Echo contrast was used. Left ventricle cavity is within upper limits of normal. Mild concentricleft ventricular hypertrophy. Prominent LV trabeculations, no definite thrombus. Severeglobal left ventricular systolic dysfunction. Restrictive diastolic dysfunction GradeIII to IV. Ejection Fraction calculated at 10 %. Normal right ventricular size with hypokinesis. Pacemaker/ICD lead notedin RA/RV. Normal structure of the mitral valve. No significant MR. Aortic valve not well visualized. No evidence of hemodynamicallysignificant aortic stenosis by Doppler. Estimated RVSP 19 mmHg. Trivial regurgitation in the tricuspid valve. Electronically Signed By: Duke Ahn MD, [facility] 2025-04-01 16:55:28 CDT Electronically Amended By: Duke Ahn MD, [facility] 04/01/2025 4:56:06 PM CDT [ADDENDUM] Carlton Wellington NP CV ECHO PROCEDURES Edited Result - Final * Infection Prevention Hazel auris PCR, surveillance Axilla/Groin (04/01/2025 12:42 PM CDT) Hazel auris DNA Not Detected Not Detected [facility] Comment: Interpretive Data Testing performed by [facility] Molecular Infectious Disease Laboratory using the Vishal xiang 6800 Hazel auris assay. This assay detects DNA from Hazel auris using Real-Time PCR. This assay is laboratory developed and is not cleared by the [place] Food and Drug Administration. The performance characteristics have been verified by the [facility]. Testing performed by: [facility], [address] [place]., [address] Axilla/Groin 04/01/2025 12:4 2 PM CDT 04/01/2025 3:52 PM CDT Narrative NO Diaz 04/02/2025 6:58 AM CDT Order placed by [facility] due to ring surveillance. us Instant Order Generic Provider LAB MICROBIOLOGY - [place] [id number] [address] Department [place] [address] [facility] * eGFR (04/01/2025 6:29 AM CDT) Pathologist [facility] eGFR 70 >=60 mL/min/1. 73 m2 Comment: Interpretive Data [...] interpretive data was last reviewed 2021. Blood 04/01/2025 6:29 AM CDT 04/01/2025 6:29 AM CDT Ilene Lopez MD LAB BLOOD ORDERABLE S Final Result Performing Organization Address [facility] Co de Phone Number NO BOATNEG [phone] [address] [place] [address] * (ABNORMAL) aPTT (04/01/2025 6:29 AM CDT) aPTT 119(H) 26 - 38 sec Comment: Interpretive Data Heparin therapeutic range: 66.0 - 100.0 seconds. Range based on correlation with therapeutic heparin activity range of 0.3 - 0.7 Units/mL. Current interpretive data was last revised on 2023. Blood 04/01/2025 6:29 AM CDT 04/01/2025 6:29 AM CDT Ilene Lopez MD LAB BLOOD ORDERABLE S Final Result Performing Organization Address [facility] Co de Phone Number GEJAYANT BOATENG [phone] [address] [place] [address] * Phosphorus (04/01/2025 6:29 AM CDT) Phosphorus, pl 3.5 2.3 - 4.5 mg/dL Blood 04/01/2025 6:29 AM CDT 04/01/2025 6:29 AM CDT Ilene Lopez MD LAB BLOOD ORDERABLE S Final Result Performing Organization Address [facility] Co de Phone Number NO BOATENG [phone] [address] [place] [address] * Magnesium (04/01/2025 6:29 AM CDT) Magnesium 1.9 1.4 - 2.5 mg/dL Blood 04/01/2025 6:29 AM CDT 04/01/2025 6:29 AM CDT us Ilene Lopez MD LAB [place] [id number] [address] Department [place] [address] * Lipid panel (04/01/2025 6:29 AM CDT) Cholesterol 181 30 - 199 mg/dL Comment: Interpretive Data [...] Data was last revised on 2018. Triglycerides 72 <=149 mg/dL NO BOATENG Comment: Interpretive Data [...] Data was last revised on 2018. HDL 45 >=40 mg/dL NO BOATENG Comment: Interpretive Data [...] was last revised on 2018. LDL, calculated 122 <=129 mg/dL NO BOATENG Comment: Interpretive Data [...] was last revised on 2024. Non-HDL Cholesterol 136 mg/dL NO BOATENG Comment: Interpretive Data Ages [...] 2018. Chol/HDL ratio 4 NO BOATENG Blood 04/01/2025 6:29 AM CDT 04/01/2025 6:29 AM CDT us Ilene Lopez MD LAB BLOOD ORDERABLE S Final Result NO BOATENG [id number] Cage Department [place] [address] * (ABNORMAL) Comprehensive metabolic panel (04/01/2025 6:29 AM CDT) Sodium 141 135 - 145 mmol/L Potassium, pl 4.6 3.3 - 4.9 mmol/L [facility] Comment:Hemolysis present. R esults may be affected. Chloride 106 97 - 110 mmol/L [facility] CO2 26 22 - 32 mmol/L [facility] Anion gap 9 2 - 15 mmol/L [facility] BUN 11 6 - 25 mg/dL [facility] Creatinine 1.09 0.80 - 1.30 mg/dL [facility] Comment:Icteric sample, test results may be affected. Glucose 96 70 - 199 mg/dL [facility] Comment: [...] interpretive data was last revised 2022. Calcium 8.6 8.5 - 10.3 mg/dL [facility] Bilirubin, total 2.0(H) 0.1 - 1.2 mg/dL [facility] Protein, pl 6.3(L) 6.5 - 8.5 g/dL [facility] Albumin 3.5 3.5 - 5.0 g/dL [facility] Alk phos 32(L) 40 - 130 Units/L [facility] ALT 10 7 - 55 Units/L [facility] Comment:Hemolysis present. R esults may be affected. AST 29 10 - 50 Units/L [facility] Comment:Hemolysis present. R esults may be affected. Blood 04/01/2025 6:29 AM CDT 04/01/2025 6:29 AM CDT us Ilene Lopez MD LAB BLOOD ORDERABLE S Final Result [facility] [id number] [address] Department [place] [address] * Differential, auto (03/31/2025 10:57 PM CDT) Neutrophil abs 5.14 1.50 - 6.50 K/cumm Imm gran abs 0.01 0.00 - 0.10 K/cumm [facility] Lymphocyte abs 1.38 0.80 - 3.30 K/cumm [facility] Monocyte abs 0.53 0.20 - 0.80 K/cumm [facility] Eosinophil abs 0.24 0.00 - 0.50 K/cumm [facility] Basophil abs 0.07 0.00 - 0.10 K/cumm [facility] Neutrophil pct 69.8 % [facility] Comment: Interpretive Data Percent cell count reference ranges are not reported, since discordance with absolute values may lead to misinterpretation of CBC data. Current Interpretive Data was last revised on 2017. Imm gran pct 0.1 % [facility] Comment: Interpretive Data Percent cell count reference ranges are not reported, since discordance with absolute values may lead to misinterpretation of CBC data. Current Interpretive Data was last revised on 2017. Lymphocyte pct 18.7 % [facility] Comment: Interpretive Data Percent cell count reference ranges are not reported, since discordance with absolute values may lead to misinterpretation of CBC data. Current Interpretive Data was last revised on 2017. Monocyte pct 7.2 % [facility] Comment: Interpretive Data Percent cell count reference ranges are not reported, since discordance with absolute values may lead to misinterpretation of CBC data. Current Interpretive Data was last revised on 2017. Eosinophil pct 3.3 % [facility] Comment: Interpretive Data Percent cell count reference ranges are not reported, since discordance with absolute values may lead to misinterpretation of CBC data. Current Interpretive Data was last revised on 2017. Basophil pct 0.9 % [facility] Comment: Interpretive Data Percent cell count reference ranges are not reported, since discordance with absolute values may lead to misinterpretation of CBC data. Current Interpretive Data was last revised on 2017. Blood 03/31/2025 10:5 7 PM CDT 03/31/2025 10:57 PM CDT Carlton Wellington FILLING STATION [employer]ORER LAB BLOOD ORDERABLES Cami l Result Performing Organization Address City/[facility]/ZIP Co de Phone Number NO [address] [place] [place] [address] * (ABNORMAL) CBC with auto differential (03/31/2025 10:57 PM CDT) WBC 7.48 3.80 - 9.90 K/cumm Hgb 12.5(L) 13.0 - 17.5 g/dL [facility] Hct 39.2 38.9 - 50.3 % [facility] Plt 248 150 - 400 K/cumm [facility] MPV 10.1 9.1 - 12.3 fL [facility] RBC 4.36 4.30 - 5.80 M/cumm [facility] MCV 89.9 81.3 - 96.[address] [facility] MCH 28.7 27.1 - 33.[address] [facility] MCHC 31.9(L) 32.3 - 35.7 g/dL [facility] RDW CV 13.3 11.1 - 14.9 % [facility] RDW SD 43.5 35.7 - 48.[address] [facility] NRBC abs 0.00 0.00 - 0.01 K/cumm [facility] Blood 03/31/2025 10:5 7 PM CDT 03/31/2025 10:57 PM CDT Carlton Wellington F[employer]ING [employer]ATION [employer]ORER LAB BLOOD ORDERABLES Cami l Result NO BO[address] [place] [address] * (ABNORMAL) aPTT (03/31/2025 10:57 PM CDT) aPTT 44(H) 26 - 38 sec Comment: Interpretive Data Heparin therapeutic range: 66.0 - 100.0 seconds. Range based on correlation with therapeutic heparin activity range of 0.3 - 0.7 Units/mL. Current interpretive data was last revised on 2023. Blood 03/31/2025 10:5 7 PM CDT 03/31/2025 10:57 PM CDT Lc SARABIA - 03/31/2025 11:12 PM CDT Baseline prior to heparin initiation Carlton Wellington FILLING STATION LABORER LAB BLOOD ORDERABLES Cami l Result Performing Organization Address [facility] Co de Phone Number [facility] [address] [place] [address] * (ABNORMAL) Protime-INR (03/31/2025 10:57 PM CDT) PT 15.5(H) 10.2 - 13.5 sec INR 1.38(H) 0.90 - 1.20 NO Comment: Interpretive data Oral anticoagulant therapeutic ranges: Venous thromboembolism prophylaxis or treatment: 2.0-3.0 CARDIOLOGY Standard range: 2.0-3.0 High-intensity range: 2.5-3.5 Refer to indication-specific guidelines for appropriate target ranges for prosthetic heart valve replacement. Current interpretive data was last revised on 2019. Blood 03/31/2025 10:5 7 PM CDT 03/31/2025 10:57 PM CDT Lc SARABIA - 03/31/2025 11:09 PM CDT Baseline prior to heparin initiation Carlton Wellington NP LAB BLOOD ORDERABLES Cami l Result Performing Organization Address [facility] Co de Phone Number [facility] [address] [place] [address] * (ABNORMAL) CBC without differential (03/31/2025 10:57 PM CDT) WBC 7.48 3.80 - 9.90 K/cumm Hgb 12.5(L) 13.0 - 17.5 g/dL [facility] Hct 39.2 38.9 - 50.3 % [facility] Plt 248 150 - 400 K/cumm [facility] MPV 10.1 9.1 - 12.3 fL [facility] RBC 4.36 4.30 - 5.80 M/cumm [facility] MCV 89.9 81.3 - 96.4 fL [facility] MCH 28.7 27.1 - 33.3 pg [facility] MCHC 31.9(L) 32.3 - 35.7 g/dL [facility] RDW CV 13.3 11.1 - 14.9 % [facility] RDW SD 43.5 35.7 - 48.1 fL [facility] NRBC abs 0.00 0.00 - 0.01 K/cumm [facility] Blood 03/31/2025 10:5 7 PM CDT 03/31/2025 10:57 PM CDT Narrative [facility] - 03/31/2025 11:03 PM CDT Baseline prior to heparin initiation Carlton Wellington NP LAB BLOOD ORDERABLES Cami l Result [facility] [id number] Department of Laboratories [place] [id number] * [place] CRITICAL CARE ILL/INJURED PATIENT INIT 30-74 MIN (03/29/2025 7:02 PM CDT) Narrative Jett Balderrama MD - 03/29/2025 7:02 PM CDT Jett Balderrama MD 04/03/2025 2:15 AM Critical Care Performed by: Jett Balderrama MD Authorized by: Jett Balderrama MD Critical care provider statement: As reflected in the history, physical exam, orders, notes, and/or MDM, I was personally present while the patient was critically ill and provided critical care services for 35 minutes, excluding time involved in separately billable procedures. Critical care was necessary to treat or prevent imminent or life-threatening deterioration of the following condition(s): severe cardiac condition Critical care was time spent by me providing the following: continuous telemetry, continuous pulse oximetry, serial bedside patient exams and interpretation of bedside monitors, imaging, and arterial/venous lab draws Case coordination with cardiology I provided emergent necessary critical care medicine services to this patient. I ordered and reviewed test results and/or imaging studies. I spent time discussing the management of this critically ill patient with consultants and the medical staff. I spent time discussing the management and therapeutic options for this critically ill patient with the patient themselves or with the appropriate designated surrogate decision-maker. I spent time documenting in the medical record. I admitted this patient to a continuous cardiac monitored bed. Jett Balderrama MD IN CLINIC/BEDSIDE ORDERA BLES Final Result * Troponin I high-sensitivity 2-hour (03/29/2025 5:31 PM CDT) Trop I hs 16 <=35 ng/L Comment: Interpretive Data For further hscTnI resources including the diagnostic algorithm and an aid in interpretation, copy and paste this link: [email or web address] Current Interpretive Data last revised 2020. Trop I hs delta 2 ng/L [facility] Trop I hs interp Insignificant [facility] Blood 03/29/2025 5:31 PM CDT 03/29/2025 5:49 PM CDT Jett Balderrama MD LAB BLOOD ORDERABLES Fin al Result [facility] [place] [address] * Troponin I high-sensitivity series (baseline, 2hr, 4hr, 6hr) (03/29/2025 3:57 PM CDT) Trop I hs 14 <=35 ng/L Comment: Interpretive Data For further hscTnI resources including the diagnostic algorithm and an aid in interpretation, copy and paste this link: [email or web address]/[email or web address] Current Interpretive Data last revised 2020. Blood 03/29/2025 3:57 PM CDT 03/29/2025 4:17 PM CDT Jett Balderrama MD LAB BLOOD ORDERABLES Fin al Result Performing Organization Address [facility] de Phone Number [facility] [place] [address] * eGFR (03/29/2025 3:57 PM CDT) eGFR [...] ORDERABLES Fin al Result Performing Organization Address City/[facility] Co de Phone Number [facility] [place] [address] * Differential, auto (03/29/2025 3:57 PM CDT) Neutrophil abs 5.46 1.50 - 6.50 K/cumm Imm gran abs 0.02 0.00 - 0.10 K/cumm [facility] Lymphocyte abs 1.40 0.80 - 3.30 K/cumm [facility] Monocyte abs 0.36 0.20 - 0.80 K/cumm [facility] Eosinophil abs 0.30 0.00 - 0.50 K/cumm [facility] Basophil abs 0.09 0.00 - 0.10 K/cumm [facility] Neutrophil pct 71.6 % [facility] Comment: Interpretive Data Percent cell count reference ranges are not reported, since discordance with absolute values may lead to misinterpretation of CBC data. Current Interpretive Data was last revised on 2017. Imm gran pct 0.3 % [facility] Comment: Interpretive Data Percent cell count reference ranges are not reported, since discordance with absolute values may lead to misinterpretation of CBC data. Current Interpretive Data was last revised on 2017. Lymphocyte pct 18.3 % [facility] Comment: Interpretive Data Percent cell count reference ranges are not reported, since discordance with absolute values may lead to misinterpretation of CBC data. Current Interpretive Data was last revised on 2017. Monocyte pct 4.7 % [facility] Comment: Interpretive Data Percent cell count reference ranges are not reported, since discordance with absolute values may lead to misinterpretation of CBC data. Current Interpretive Data was last revised on 2017. Eosinophil pct 3.9 % [facility] Comment: Interpretive Data Percent cell count reference ranges are not reported, since discordance with absolute values may lead to misinterpretation of CBC data. Current Interpretive Data was last revised on 2017. Basophil pct 1.2 % [facility] Comment: Interpretive Data Percent cell count reference ranges are not reported, since discordance with absolute values may lead to misinterpretation of CBC data. Current Interpretive Data was last revised on 2017. Blood 03/29/2025 3:57 PM CDT 03/29/2025 4:17 PM CDT us Jett Balderrama MD LAB BLOOD ORDERABLES Fin al Result [facility] [place] [address] * (ABNORMAL) CBC with auto differential (03/29/2025 3:57 PM CDT) [facility] WBC 7.63 3.80 - 9.90 K/cumm Hgb 14.5 13.0 - 17.5 g/dL [facility] Hct 46.2 38.9 - 50.3 % [facility] Plt 303 150 - 400 K/cumm [facility] MPV 10.4 9.1 - 12.3 fL [facility] RBC 5.12 4.30 - 5.80 M/cumm [facility] MCV 90.2 81.3 - 96.4 fL [facility] MCH 28.3 27.1 - 33.3 pg [facility] MCHC 31.4(L) 32.3 - 35.7 g/dL [facility] RDW CV 13.0 11.1 - 14.9 % [facility] RDW SD 42.9 35.7 - 48.1 fL [facility] NRBC abs 0.00 0.00 - 0.01 K/cumm [facility] Blood 03/29/2025 3:57 PM CDT 03/29/2025 4:17 PM CDT Jett Balderrama MD LAB BLOOD ORDERABLES Fin al Result [facility] [place] [address] * (ABNORMAL) Comprehensive metabolic panel (03/29/2025 3:57 PM CDT) [facility] Sodium 143 135 - 145 mmol/L Potassium, pl 4.9 3.3 - 4.9 mmol/L [facility] Chloride 106 97 - 110 mmol/L [facility] CO2 26 22 - 32 mmol/L [facility] Anion gap 11 2 - 15 mmol/L [facility] BUN 15 6 - 25 mg/dL [facility] Creatinine 1.11 0.80 - 1.30 mg/dL [facility] Glucose 93 70 - 199 mg/dL [facility] Comment: Interpretive Data Fasting glucose >/= [...] 2022. Calcium 9.9 8.5 - 10.3 mg/dL [facility] Bilirubin, total 1.5(H) 0.1 - 1.2 mg/dL [facility] Protein, pl 8.4 6.5 - 8.5 g/dL [facility] Albumin 4.4 3.5 - 5.0 g/dL [facility] Alk phos 43 40 - 130 Units/L [facility] ALT 12 7 - 55 Units/L [facility] AST 21 10 - 50 Units/L [facility] Blood 03/29/2025 3:57 PM CDT 03/29/2025 4:17 PM CDT us Jett Balderrama MD LAB BLOOD ORDERABLES Fin al Result [facility] [place] [address] * Differential, auto (03/29/2025 1:18 PM CDT) Neutrophil abs 4.64 1.50 - 6.50 K/cumm Comment:Testing performed by : [facility], [facility] [place] [address] Lymphocyte abs 1.21 0.80 - 3.30 K/cumm [facility] Comment:Testing performed by : [facility], [address] [place] [phone] Monocyte abs 0.41 0.20 - 0.80 K/cumm NO [facility] Comment:Testing performed by : [facility], [address] [place] [phone] Eosinophil abs 0.28 0.00 - 0.50 K/cumm [facility] Comment:Testing performed by : [facility], [address] [place] [phone] Basophil abs 0.05 0.00 - 0.10 K/cumm [facility] Comment:Testing performed by : [facility], [address] [place] [phone] Neutrophil pct 70.3 % [facility] Comment: Interpretive Data Percent cell count reference ranges are not reported, since discordance with absolute values may lead to misinterpretation of CBC data. Current Interpretive Data was last revised on 2017. Testing performed by: [facility], [address] [place], [place] [id number] Lymphocyte pct 18.3 % [facility] Comment: Interpretive Data Percent cell count reference ranges are not reported, since discordance with absolute values may lead to misinterpretation of CBC data. Current Interpretive Data was last revised on 2017. Testing performed by: [facility], [address] [place] [address] Monocyte pct 6.2 % [facility] Comment: Interpretive Data Percent cell count reference ranges are not reported, since discordance with absolute values may lead to misinterpretation of CBC data. Current Interpretive Data was last revised on 2017. Testing performed by: [facility], [address] [place] [phone] Eosinophil pct 4.3 % [facility] Comment: Interpretive Data Percent cell count reference ranges are not reported, since discordance with absolute values may lead to misinterpretation of CBC data. Current Interpretive Data was last revised on 2017. Testing performed by: [facility], [address] [place] [phone] Basophil pct 0.8 % [facility] Comment: Interpretive Data Percent cell count reference ranges are not reported, since discordance with absolute values may lead to misinterpretation of CBC data. Current Interpretive Data was last revised on 2017. Testing performed by: [facility], [address] [place] [address] Blood 03/29/2025 1:18 PM CDT 03/29/2025 1:22 PM CDT Brian Min MD LAB BLOOD ORDERABLES Final Res ult NO SCHUSTER [facility] [place] [address] * (ABNORMAL) CBC with auto differential (03/29/2025 1:18 PM CDT) WBC 6.60 3.80 - 9.90 K/cumm Comment:Testing performed by : [facility], [address] [place] [address] Hgb 12.9(L) 13.0 - 17.5 g/dL NO SCHUSTER Comment:Testing performed by : [facility], [address] [place] [address] Hct 39.4 38.9 - 50.3 % NO SCHUSTER Comment:Testing performed by : [facility], [address] [place] [address] Plt 271 150 - 400 K/cumm NO SCHUSTER Comment:Testing performed by : [facility], [address] [place] [address] MPV 7.5 6.8 - 10.4 fL NO [facility] Comment:Testing performed by : [facility], [address] [place] [address] RBC 4.50 4.30 - 5.80 M/cumm NO [facility] Comment:Testing performed by : [facility], [address] [place] [address] MCV 87.6 81.3 - 96.4 fL [facility] Comment:Testing performed by : [facility], [address] [place] [address] MCH 28.7 27.1 - 33.3 pg [facility] Comment:Testing performed by : [facility], [address] [place] [address] MCHC 32.8 32.3 - 35.7 g/dL [facility] Comment:Testing performed by : [facility], [address] [place] [phone] RDW CV 13.8 11.1 - 14.9 % NO [facility] Comment:Testing performed by : [facility], [address] [place] [phone] NRBC abs 0.00 0.00 - 0.01 K/cumm NO [facility] Comment:Testing performed by : [facility], [address] [place] [phone] Blood 03/29/2025 1:18 PM CDT 03/29/2025 1:22 PM CDT us Brian Min MD LAB BLOOD ORDERABLES Final Res ult [facility] [place] [address] * eGFR (03/29/2025 1:18 PM CDT) eGFR [...] MD LAB BLOOD ORDERABLES Final Res ult Performing Organization Address [facility] Co de Phone Number [facility] [place] [address] * Thyroid Function Becker (03/29/2025 1:18 PM CDT) [facility] TSH 1.73 0.30 - 4.20 mcIUnit/mL Blood 03/29/2025 1:18 PM CDT 03/29/2025 1:24 PM CDT Brian Min MD LAB BLOOD ORDERABLES Final Res ult Performing Organization Address [facility] de Phone Number [facility] [place] [address] * Lactate dehydrogenase (LD) (03/29/2025 1:18 PM CDT) [facility] Lactate dehydrogenase (LDH) 207 100 - 250 Units/L Blood 03/29/2025 1:18 PM CDT 03/29/2025 1:24 PM CDT Brian Min MD LAB BLOOD ORDERABLES Final Res ult Performing Organization Address [facility] [place] [address] * (ABNORMAL) Comprehensive metabolic panel (03/29/2025 1:18 PM CDT) [facility] Sodium 139 135 - 145 mmol/L Potassium, pl 4.4 3.3 - 4.9 mmol/L [facility] Chloride 104 97 - 110 mmol/L [facility] CO2 26 22 - 32 mmol/L [facility] Anion gap 9 2 - 15 mmol/L [facility] BUN 16 6 - 25 mg/dL [facility] Creatinine 1.18 0.80 - 1.30 mg/dL [facility] Glucose 89 70 - 199 mg/dL [facility] Comment: Interpretive Data Fasting glucose >/= [...] 2022. Calcium 9.2 8.5 - 10.3 mg/dL [facility] Bilirubin, total 1.2 0.1 - 1.2 mg/dL [facility] Protein, pl 7.1 6.5 - 8.5 g/dL [facility] Albumin 4.0 3.5 - 5.0 g/dL [facility] Alk phos 37(L) 40 - 130 Units/L [facility] ALT <5(L) 7 - 55 Units/L [facility] Comment:Repeated and Verifie d AST 18 10 - 50 Units/L [facility] Blood 03/29/2025 1:18 PM CDT 03/29/2025 1:24 PM CDT Brian Min MD LAB BLOOD ORDERABLES Final Res ult [facility] [place] [address] * CT Chest Abdomen Pelvis W Contrast [...] Final Result from Last 3 Months Insurance MEDICARE ADVANTAGE Member Subscriber Plan / Payer (Ef fective 2018-Present) Name:Karin Jackson Relation to Subscriber:Self Name:Karin Jackson Payer ID:[id number] (NAIC) Type:[employer] MEDICARE Address: [place] [id number] Member Subscriber Plan / Payer (Ef fective 2022-Present) Name:Karin Jackson Relation to Subscriber:Self Name:Karin Jackson Payer ID:[id number] (NAIC) Type:[facility] Address: [place] [id number] Advance Directives For more information, please contact: [phone] * Full Code (Latest Code Status on File) Date Activated Date Inactivated Comments 03/31/2025 9:55 PM 04/02/2025 6:14 PM * Full Code Date Activated Date Inactivated Comments 03/22/2019 2:32 AM 03/25/2019 7:04 PM * Full Code Date Activated Date Inactivated Comments 07/20/2018 8:18 PM 07/23/2018 4:42 PM Care Teams Film And Video Editor Relationship Specialty Start Date End Date Nj Espino MD [address] [place] [id number] PCP - General Family Medicine 04/01/25 Ambrose Reyes MD Referring Physician Neurosurgery 07/23/18 Pet, Marcell Hardy MD [address] [place] [address] Consulting Physician Plastic Surgery 03/11/19 [place] [id number] [place] [address] Physical Therapist Cardiology 03/18/25 [place] [address] [facility] [address] [place] [address] Physical Therapist Cardiology 03/19/25
--- OUTSIDE RECORDS SUMMARY | 2025-06-23 19:39 | XMS_ITS | Clinical Summary ---
Author Organization [facility] Address [address] [place] [address] Care Team Providers Care Break Out Man Name Role Phone Madi Garcia MD Primary Care Provider + [phone] Source Comments [facility],non-owned Affiliates and Associated Physician Practices is amultiple site organization consisting of ambulatory clinics and hospital sitesin [place], [place], [place] and [place]. This disclosure is being madepursuant to the Care Everywhere program and may not contain all information available regarding this patient. 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 Pulse 94 07/16/2013 2:27 PM 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 Temperature - - Respiratory Rate - - Oxygen Saturation 98% 07/16/2013 2:27 PM 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 Inhaled Oxygen Concentration - - Weight 66.2 kg (146 lb) 07/16/2013 2:27 PM 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 Height - - Body Mass Index - - Plan of Treatment Health Maintenance Due Date Last Done Comments HEPATITIS C SCREENING 09/20/1966 DTAP/TDAP/TD VACCINES (1 - Tdap) 1967 PNEUMOCOCCAL VACCINE 50+ (1 of 1 - PCV) 1998 ZOSTER VACCINE (1 of 2) 1998 Respiratory Syncytial Virus (RSV) Vaccine Pt: or over 60 yrs (1 - 1-dose 75+ series) 2023 DEPRESSION SCREENING 08/05/2024 COVID-19 VACCINE (1 - 2024-2 6 season) 2025 INFLUENZA VACCINE (#1) 2025 HEPATITIS B VACCINE [...] complete this topic Insurance MEDICARE Care Teams Break Out Man Relationship Specialty Start Date End Date Madi Garcia MD [address] [facility] [address] [place] [address] PCP - General Internal Medicine 07/16/13
== END 2025-06-23 13:16 | disposition home or self-care (01) ==
LOC: ANHLAB 13:15
PROVIDERS: PCP Family Medicine; Visit Provider Family Medicine
DX: M62.838 Other muscle spasm (principal)
CPT/HCPCS: 36415; 80048; 83735